=== PATIENT | male | born 1955 | race Caucasian/White ===

== ENCOUNTER 2019-12-07 13:32 | Outpatient (REF) | payer MEDICARE, MEDICAID, SELFPAY | END 2019-12-07 13:33 | disposition home or self-care (01) | LOC: HO.NEURO 13:32 | PROVIDERS: PCP Internal Medicine; Visit Provider Internal Medicine | DX: F20.9 Schizophrenia, unspecified (principal); F06.1 Catatonic disorder due to known physiological condition | CPT/HCPCS: 95816 ==

== ENCOUNTER → 2019-12-21 13:20 | Outpatient (BNVA) | payer MEDICARE, MEDICAID, SELFPAY | PROVIDERS: PCP Internal Medicine; Referring Provider Internal Medicine; Visit Provider Nurse Practitioner | DX: K59.00 Constipation, unspecified (principal); R13.12 Dysphagia, oropharyngeal phase; K21.9 Gastro-esophageal reflux disease without esophagitis; Z79.899 Other long term (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; Z83.71 Family history of colonic polyps | CPT/HCPCS: 99212 ==

== ENCOUNTER 2019-12-25 09:46 | Outpatient (REF) | payer MEDICARE, MEDICAID, SELFPAY ==
--- NOTE | 2019-12-25 09:48 | CT_ITS ---
EXAMINATION: CT HEAD WITHOUT CONTRAST CLINICAL INFORMATION: Schizophrenic Catatonia COMPARISON: CT brain 03/04/2016 TECHNIQUE: Contiguous axial imaging was performed from the skull base to vertex without intravenous administration of contrast. This CT examination was performed using dose optimization techniques as appropriate, variously including the following: *Automated exposure control *Adjustment of mA and/or kV according to patient size (this includes techniques or standardized protocols for targeted exams where dose is matched to indication/reason for exam; i.e. extremities or head) *Use of iterative reconstruction technique DLP: 638 mGy-cm FINDINGS: There is no evidence of acute intracranial hemorrhage or territorial infarction. No abnormal mass effect or midline shift is seen. Nelson to white matter differentiation is well preserved. No extra-axial fluid collections are identified. The lateral ventricles are slightly prominent but symmetrical. The osseous structures and soft tissues are normal. The mastoid air cells and visualized portions of the paranasal sinuses are well aerated. CT/CT head/brain wo con IMPRESSION: No acute intracranial process seen. No major change from previous study 03/04/2016.
== END 2019-12-25 09:47 | disposition home or self-care (01) ==
LOC: HO.CT 09:46
PROVIDERS: PCP Internal Medicine; Visit Provider Internal Medicine
DX: F20.9 Schizophrenia, unspecified (principal); F06.1 Catatonic disorder due to known physiological condition
CPT/HCPCS: 70450

== ENCOUNTER 2020-01-08 15:54 | Outpatient (REF) | payer MEDICARE, MEDICAID, SELFPAY | END 2020-01-08 15:55 | disposition home or self-care (01) | LOC: HO.LAB 15:54 | PROVIDERS: Visit Provider Internal Medicine | DX: Z20.828 Contact with and (suspected) exposure to other viral communicable diseases (principal) | CPT/HCPCS: C9803; U0003 ==

== ENCOUNTER → 2020-01-25 12:52 | Outpatient (BNVA) | payer MEDICARE, MEDICAID, SELFPAY | PROVIDERS: PCP Internal Medicine; Visit Provider Nurse Practitioner | DX: K59.00 Constipation, unspecified (principal); R13.12 Dysphagia, oropharyngeal phase; Z83.71 Family history of colonic polyps; K21.9 Gastro-esophageal reflux disease without esophagitis | CPT/HCPCS: Q3014 ==

== ENCOUNTER 2020-02-27 08:30 | Day surgery (SDC) | payer MEDICARE, MEDICAID, SELFPAY ==
[2020-02-14 20:39] VITALS: BMI 21.2
--- NOTE | 2020-02-26 12:44 | HO.ANESPROP2 ---
Documented by User: Farzana De Leon 02/26/20 12:52 HPI - Anesthesia Eval Consult details Narrative: 64yo M for Colonoscopy Tracheomalacia s/p stent 2005. Has recurrent admits for aspiration. Reviewed with Dr Ochoa. [facility] Past Medical History Medical History (Updated 02/27/20 @ 09:40 by Leyda Roque) Anemia Asthma Depression Dysphagia, cricopharyngeal Hypothyroid Oropharyngeal dysphagia Pneumonia Family History Family History Family/Other Unknown family medical history Father Hypertension Mother Unknown family medical history Brother No problems noted. Sister No problems noted. Surgical History Surgical History History of colonoscopy History of endoscopy History of esophagogastroduodenoscopy (EGD) S/P tracheoplasty Social History Social History Household Members Other:: long-term Housing Other:: long-term Alcohol intake: current Alcohol intake frequency: does not drink Smoking Status: Never smoker Use of substances other than those prescribed or required for medical reasons: No Advance Directives: Yes Advance Directives Information Provided: No Advance Directives on File: No Advance Directives Date on File: 02/14/20 Meds Allergies Allergy/AdvReac Type Severity Reaction Status Date / Time clindamycin Allergy Unknown Unknown Verified 02/19/20 06:46 Sulfa (Sulfonamide Allergy Unknown UNKNOWN Verified 02/19/20 06:46 Antibiotics) [SULFA(SULFONAMIDE ANTIBIOTICS)] sulfamethoxazole Allergy Unknown Unknown Verified 02/19/20 06:46 [From Bactrim] trimethoprim [From Bactrim] Allergy Unknown Unknown Verified 02/19/20 06:46 Home Medications Medication Instructions Recorded Confirmed Type polyethylene glycol 3350 17 17 g PO DAILY 12/20/19 02/14/20 History gram/dose oral powder clozapine 2 tab PO BEDTIME 02/14/20 02/14/20 History clozapine 2 tab PO BEDTIME 02/14/20 02/14/20 History desmopressin 0.1 mg PO DAILY 02/14/20 02/14/20 History fluoxetine 20 mg PO DAILY 02/14/20 02/27/20 History lamotrigine 1 tab PO BID 02/14/20 02/27/20 History lamotrigine 25 mg PO BID 02/14/20 02/14/20 History levothyroxine 1 tab PO DAILY 02/14/20 02/27/20 History lorazepam 1 tab PO TID PRN 02/14/20 02/27/20 History omeprazole 20 mg PO DAILY 02/14/20 02/27/20 History paliperidone [Invega] 12 mg PO DAILY 02/14/20 02/27/20 History Exam Exam Date and Time: February 26, 2020 1244 Height,Weight and Vital Signs: Height 5 ft 3 in Weight 54.431 kg Assessment and Plan Assessment Anesthesia Assessment: Chart Reviewed Documented by User: Leyda Roque 02/27/20 09:43 [facility] Past Medical History Medical History (Updated 02/27/20 @ 09:40 by Leyda Roque) Anemia Asthma Depression Dysphagia, cricopharyngeal Hypothyroid Oropharyngeal dysphagia Pneumonia Family History Family History Family/Other Unknown family medical history Father Hypertension Mother Unknown family medical history Brother No problems noted. Sister No problems noted. Family history of problems with anesthesia: No Surgical History Surgical History History of colonoscopy History of endoscopy History of esophagogastroduodenoscopy (EGD) S/P tracheoplasty History of Problems with Anesthesia: No Social History Social History Household Members Other:: long-term Housing Other:: long-term Alcohol intake: current Alcohol intake frequency: does not drink Smoking Status: Never smoker Use of substances other than those prescribed or required for medical reasons: No Advance Directives: Yes Advance Directives Information Provided: No Advance Directives on File: No Advance Directives Date on File: 02/14/20 Meds Allergies Allergy/AdvReac Type Severity Reaction Status Date / Time clindamycin Allergy Unknown Unknown Verified 02/19/20 06:46 Sulfa (Sulfonamide Allergy Unknown UNKNOWN Verified 02/19/20 06:46 Antibiotics) [SULFA(SULFONAMIDE ANTIBIOTICS)] sulfamethoxazole Allergy Unknown Unknown Verified 02/19/20 06:46 [From Bactrim] trimethoprim [From Bactrim] Allergy Unknown Unknown Verified 02/19/20 06:46 Home Medications Medication Instructions Recorded Confirmed Type polyethylene glycol 3350 17 17 g PO DAILY 12/20/19 02/14/20 History gram/dose oral powder clozapine 2 tab PO BEDTIME 02/14/20 02/14/20 History clozapine 2 tab PO BEDTIME 02/14/20 02/14/20 History desmopressin 0.1 mg PO DAILY 02/14/20 02/14/20 History fluoxetine 20 mg PO DAILY 02/14/20 02/27/20 History lamotrigine 1 tab PO BID 02/14/20 02/27/20 History lamotrigine 25 mg PO BID 02/14/20 02/14/20 History levothyroxine 1 tab PO DAILY 02/14/20 02/27/20 History lorazepam 1 tab PO TID PRN 02/14/20 02/27/20 History omeprazole 20 mg PO DAILY 02/14/20 02/27/20 History paliperidone [Invega] 12 mg PO DAILY 02/14/20 02/27/20 History Exam Height,Weight and Vital Signs: Vital Signs Temp Pulse Resp BP Pulse Ox 02/27/20 08:41 97.5 F 85 18 128/73 97 Airway Mallampati Class: II TM Dist: >3cm Neck ROM: Full Heart: RRR Lungs: CTAB Assessment and Plan Assessment Anesthesia Assessment: Anesthesia Plan Discussed and Chart Reviewed Final Anesthetic Review NPO: Yes ASA Class: II Final Preanesthetic Review: No Changes in Pt Med Stat, Meds/Allgs Chart Reviewed, Consent Obtained/Reviewed and Anes Risks/Benef Reviewed Patient Risk: Low Procedure Risk: Low Assessment/Block/Sedation in SS: Assess/Block/Sedation-SS Anesthetic Plan Anesthetic Plan: MAC: Disposition: Standard PACU
[2020-02-27 08:41] VITALS: BP 128/73; PULSE 85; RESP 18; TEMP 36.4; O2SAT 97
[2020-02-27] MEDS: Lactated Ringers 1,000 ML 100 ML IVCONT (08:57)
--- NOTE | 2020-02-27 09:25 | P.HPSUR_ITS ---
Pre-Procedural Eval Section A The patient is an INPATIENT: No The History & Physical has been completed within 30 days and I have reviewed it.: No Section B Chief Complaint: family hx of colon cancer polyps Details of Present Illness: Colon cancer screening, FH of colon polyps, chronic constipation Relevant Family History (Specify if Yes): Yes Relevant Social History: None Present Medications: see Short Stay Collaborative assessment Medical History: Significant History (Chronic schizophrenia Tracheomalacia Depression N/V w/ coffee ground emesis Tubular adenomas x 3 (2006) ) History of Previous Operations: Relevant previous surgery/procedure and date(s) (Colonoscopy w/ TUBULAR ADENOMAS X 3, all < 10 mm; diverticulosis, sm. int. hemorrhoids (Dr. Freedman) 06/2006 EGD-candidiasis, reflux esophagitis (Dr. Freedman) 12/2004 Tracheoplasty at [facility], ? Dr. Fraser ? 2004 ) Allergies: Allergies Allergy/AdvReac Type Severity Reaction Status Date / Time clindamycin Allergy Unknown Unknown Verified 02/19/20 06:46 Sulfa (Sulfonamide Allergy Unknown UNKNOWN Verified 02/19/20 06:46 Antibiotics) [SULFA(SULFONAMIDE ANTIBIOTICS)] sulfamethoxazole Allergy Unknown Unknown Verified 02/19/20 06:46 [From Bactrim] trimethoprim [From Bactrim] Allergy Unknown Unknown Verified 02/19/20 06:46 Review of Systems Sugical H&P ROS: Negative: Constitution, Cardiovascular and Respiratory and Yes, Specify: Gastrointestinal (constipation) Exam Surgical H&P Exam: Normal: Heart, Normal: Lungs, Normal: Extremities and Normal: Abdomen Plan Diagnosis/Plan: Unchanged I have reviewed the history and physical and performed a pertinent physical examination on my patient. No changes have occurred unless specified.
--- NOTE | 2020-02-27 09:25 | W.PM.OPN ---
Operative Note Operative Note Date of Service: 02/27/20 Narrative: Pre-op diagnosis: Colon cancer screening, constipation, FH of colon polyps Post-op diagnosis: other (colon polyps, suboptimal prep) Procedure: COLONOSCOPY TILL CECUM WITH SNARE POLYPECTOMY AND SUBMUCOSAL INJECTION Consent: Indications for the procedure and potential complications of bleeding, perforation, reaction to medications and missed diagnosis were discussed with the patient and informed consent was obtained. Instrument: Olympus PCF H 190 L variable stiffness pediatric colonoscope Monitoring: Vital signs and clinical assessment, intermittent blood pressure monitoring, continuous EKG monitoring, Pulse oximetry and Carbon Dioxide monitoring were done throughout the procedure. Colon withdrawl time was 25 minutes. Procedure: The patient was placed in the left lateral decubitis position and pre-procedure medications were administered. After a digital rectal examination of the ano-rectum, the video colonoscope was inserted into the rectum and advanced through the colon to the cecum. The colonoscope was slowly withdrawn in a retrograde panoramic fashion and the colon mucosa was carefully examined including a retroflexed view of the rectum. Findings and interventions are described below. Procedure Difficulty: Without difficulty Findings: Terminal Ileum: Not evaluated Cecum: Partially evaluated - A 10 mm sessile polyp raised with 3 cc of normal saline (submucosal injection) and removed with a hot snare. A 7-8 mm sessile polyp removed with a hot snare. Ascending Colon: Partially evaluated due to fair prep and poor in some areas of the colon. Transverse Colon: A 12-15 mm sessile polyp removed with a hot snare. Partially evaluated due to fair prep and poor in some areas of the colon.l Descending Colon: Partially evaluated due to fair prep and poor in some areas of the colon. Sigmoid Colon: Partially evaluated due to fair prep and poor in some areas of the colon. Rectum: Normal Ano-rectum: Normal Colon preparation: Fair and poor in some areas of the colon despite copious irrigation. Impression and Post Procedure Diagnosis: Colonoscopy Findings: Three polyps removed. Melanosis Coli throughout the colon. Fair to poor prep. Plan: Await pathology results Patient has an appointment on 03/12/20 in the [facility] with Luisa Hernandes NP . Repeat Colonoscopy in 6 months due to fair to poor prep. Above findings were reviewed with the patient and colon polyps handout was given in the discharge area Surgeon: Adriel Souza MD Anesthesia: MAC (Kiya Guido) Estimated blood loss (mL): 0 Pathology: other (A. TC polyps x 1. B. cecal polyps x 2) Condition: stable Disposition: PACU
[2020-02-27 10:32] VITALS: BP 109/71; PULSE 80; RESP 17; TEMP 36; O2SAT 95
[2020-02-27 10:48] VITALS: BP 109/76; PULSE 80; RESP 16; TEMP 36.1; O2SAT 97
[2020-02-27 11:04] VITALS: BP 136/81; PULSE 77; RESP 16; TEMP 36.1; O2SAT 97
[2020-02-27 11:22] VITALS: BP 134/69; PULSE 82; RESP 16; TEMP 36.3; O2SAT 99
--- NOTE | 2020-02-27 11:50 | HO.POSTANES ---
Post Anesthesia Evaluation Post Anesthesia Evaluation Vital Signs: Vital Signs Temp Pulse Resp BP Pulse Ox 02/27/20 11:22 97.3 F 82 16 134/69 99 02/27/20 11:04 97 F 77 16 136/81 97 02/27/20 10:48 97 F 80 16 109/76 97 02/27/20 10:32 96.8 F 80 17 109/71 95 02/27/20 08:41 97.5 F 85 18 128/73 97 Anesthesia: Monitored Mental Status: Awake Pain Control: Satisfactory Nausea/Vomiting: None Hydration: Adequate Anesthesia-Related Issues: No Anes. Related Issues
== END 2020-02-27 12:23 | disposition home or self-care (01) ==
PROVIDERS: PCP Internal Medicine; Visit Provider Internal Medicine Gastroenterology
PROC: 0DJD8ZZ Inspection of Lower Intestinal Tract, Via Natural or Artificial Opening Endoscopic (ICD-10-PCS; CPT 45378; principal; 2020-02-27 09:00)
DX: Z12.11 Encounter for screening for malignant neoplasm of colon (principal); Z83.71 Family history of colonic polyps; Z86.010 Personal history of colon polyps; D12.0 Benign neoplasm of cecum; D12.3 Benign neoplasm of transverse colon; K63.89 Other specified diseases of intestine; K59.09 Other constipation; J44.9 Chronic obstructive pulmonary disease, unspecified; R73.02 Impaired glucose tolerance (oral); J39.8 Other specified diseases of upper respiratory tract; F20.9 Schizophrenia, unspecified; F32.9 Major depressive disorder, single episode, unspecified; Z79.899 Other long term (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; Z88.2 Allergy status to sulfonamides; Z88.1 Allergy status to other antibiotic agents
CPT/HCPCS: 45385; 45381; 88305

== ENCOUNTER → 2020-05-15 14:41 | Outpatient (BNVA) | payer MEDICARE, MEDICAID, SELFPAY | PROVIDERS: PCP Internal Medicine; Visit Provider Nurse Practitioner | DX: R13.12 Dysphagia, oropharyngeal phase (principal); K21.9 Gastro-esophageal reflux disease without esophagitis; K59.00 Constipation, unspecified; D12.6 Benign neoplasm of colon, unspecified; Z83.71 Family history of colonic polyps | CPT/HCPCS: Q3014 ==

== ENCOUNTER → 2020-05-31 10:57 | Outpatient (BNVA) | payer MEDICARE, MEDICAID, SELFPAY | PROVIDERS: PCP Internal Medicine; Visit Provider Nurse Practitioner | DX: Z13.89 Encounter for screening for other disorder (principal) | CPT/HCPCS: Q3014 ==

== ENCOUNTER 2020-06-06 08:47 | Outpatient (REF) | payer MEDICARE, MEDICAID, SELFPAY ==
[2020-06-06 09:43] LABS: MANUAL DIFF FLAG NO
[2020-06-06 09:51] LABS: Basophils Absolute Auto 0.1 X10*3/uL (0.0-0.2); Basophils Percent Auto 0.6 % (0-2); Eosinophils Absolute Auto 0.1 X10*3/uL (0.0-0.4); Eosinophils Percent Auto 1.7 % (0-4); Hematocrit 37.8 % (42-52); Hemoglobin 12.2 g/dl (14.0-18.0); Imm Gran Abs Auto 0.08 X10*3/uL (0.00-0.03); Immature Retic Fraction 11.3 % (2.3-13.4); Lymphocytes Percent Auto 11.8 % (20-40); Mean Corpuscular HGB Conc 32.3 g/dl (31.0-36.0); Mean Corpuscular Hemoglobin 30.6 pg (27.0-33.0); Mean Corpuscular Volume 94.7 fL (80-98); Mean Platelet Volume 11.1 fL (9.4-12.4); Monocytes Absolute Auto 0.5 X10*3/uL (0.1-1.2); Monocytes Percent Auto 5.8 % (2-11); Neutrophils Absolute Auto 6.4 X10*3/uL (2.0-8.3); Neutrophils Percent Auto 79.1 % (45-73); Platelet Count 290 X10*3/uL (160-400); Red Blood Count 3.99 X10*6/uL (4.60-5.80); Red Cell Distribution Width 13.7 % (11.0-16.0); Retic HGB Equivalent 33.2 pg (30.0-35.0); Reticulocyte Percent 1.5 % (0.5-1.8); Reticulocytes Absolute 0.058 X10*6/uL (0.026-0.095); White Blood Count 8.1 X10*3/uL (4.8-10.8)
[2020-06-06 10:14] LABS: Alanine Aminotransferase 9 U/L (0-40); Albumin Level 4.1 g/dL (3.5-5.0); Alkaline Phosphatase 68 U/L (39-117); Anion Gap 13 (12-20); Aspartate Amino Transferase 13 U/L (5-37); Bilirubin Total 0.4 mg/dL (0.0-1.0); Blood Urea Nitrogen 16 mg/dL (9-16); Calcium 9.9 mg/dL (8.4-10.2); Carbon Dioxide 29 mmol/L (22-29); Chloride 104 mmol/L (96-108); Cholesterol 189 mg/dL; Estimated Glomerular Filt Rate > 60; Glucose Random 90 mg/dL (60-115); HDL Cholesterol 67 mg/dL; Iron 69 mcg/dL (45-160); LDL Cholesterol Calculated 105 mg/dl; Percent Iron Saturation 26 % (15-50); Potassium 4.5 mmol/L (3.3-5.1); Sodium 141 mmol/L (135-145); Total Iron Binding Capacity 264 mcg/dL (228-428); Total Protein 6.7 g/dL (6.5-8.0); Triglycerides 89 mg/dL; Unsaturated Iron Binding 195 ug/dL
[2020-06-06 10:26] LABS: Ferritin 198 ng/mL (20-250); Free T4 (Free Thyroxine) 0.99 ng/dL (0.71-1.85); Thyroid Stimulating Hormone 1.97 uIU/mL (0.32-4.0)
[2020-06-06 10:48] LABS: Folate 14.8 ng/mL (> or = 4.0); Vitamin B12 899 pg/mL (200-900)
== END 2020-06-06 08:48 | disposition home or self-care (01) ==
LOC: HO.LAB 08:47
PROVIDERS: PCP Internal Medicine; Visit Provider Internal Medicine
DX: D64.9 Anemia, unspecified (principal); K21.9 Gastro-esophageal reflux disease without esophagitis; E03.9 Hypothyroidism, unspecified; E78.00 Pure hypercholesterolemia, unspecified
CPT/HCPCS: 36415; 80053; 80061; 82607; 82728; 82746; 83540; 84439; 84443; 85025; 85045

== ENCOUNTER → 2020-07-25 15:18 | Outpatient (BNVA) | payer MEDICARE, MEDICAID, SELFPAY | PROVIDERS: PCP Internal Medicine; Visit Provider Nurse Practitioner | DX: D12.6 Benign neoplasm of colon, unspecified (principal); R13.12 Dysphagia, oropharyngeal phase; K59.00 Constipation, unspecified; K21.9 Gastro-esophageal reflux disease without esophagitis; F20.2 Catatonic schizophrenia; Z83.71 Family history of colonic polyps | CPT/HCPCS: Q3014 ==

== ENCOUNTER 2020-09-11 10:51 | Outpatient (REF) | payer MEDICARE, MEDICAID, SELFPAY ==
[2020-09-11 11:28] LABS: MANUAL DIFF FLAG NO
[2020-09-11 11:37] LABS: Basophils Percent Auto 0.4 % (0-2); Eosinophils Absolute Auto 0.1 X10*3/uL (0.0-0.4); Eosinophils Percent Auto 0.7 % (0-4); Hematocrit 42.6 % (42-52); Hemoglobin 13.7 g/dl (14.0-18.0); Imm Gran Abs Auto 0.03 X10*3/uL (0.00-0.03); Imm Gran Pct Auto 0.3 % (0.0-0.4); Immature Retic Fraction 10.2 % (2.3-13.4); Lymphocytes Percent Auto 10.8 % (20-40); Mean Corpuscular HGB Conc 32.2 g/dl (31.0-36.0); Mean Corpuscular Hemoglobin 30.2 pg (27.0-33.0); Mean Corpuscular Volume 93.8 fL (80-98); Mean Platelet Volume 10.9 fL (9.4-12.4); Monocytes Absolute Auto 0.5 X10*3/uL (0.1-1.2); Monocytes Percent Auto 4.9 % (2-11); Neutrophils Absolute Auto 7.7 X10*3/uL (2.0-8.3); Neutrophils Percent Auto 82.9 % (45-73); Platelet Count 243 X10*3/uL (160-400); Red Blood Count 4.54 X10*6/uL (4.60-5.80); Red Cell Distribution Width 13.1 % (11.0-16.0); Retic HGB Equivalent 35.4 pg (30.0-35.0); Reticulocyte Percent 1.2 % (0.5-1.8); Reticulocytes Absolute 0.055 X10*6/uL (0.026-0.095); White Blood Count 9.3 X10*3/uL (4.8-10.8)
[2020-09-11 12:11] LABS: Alanine Aminotransferase 6 U/L (0-40); Albumin Level 4.4 g/dL (3.5-5.0); Alkaline Phosphatase 86 U/L (39-117); Anion Gap 15 (12-20); Aspartate Amino Transferase 15 U/L (5-37); Bilirubin Total 0.5 mg/dL (0.0-1.0); Blood Urea Nitrogen 21 mg/dL (9-16); Calcium 10.3 mg/dL (8.4-10.2); Carbon Dioxide 25 mmol/L (22-29); Chloride 105 mmol/L (96-108); Estimated Glomerular Filt Rate > 60; Glucose Random 97 mg/dL (60-115); Iron 60 mcg/dL (45-160); Percent Iron Saturation 20 % (15-50); Potassium 4.7 mmol/L (3.3-5.1); Sodium 140 mmol/L (135-145); Total Iron Binding Capacity 301 mcg/dL (228-428); Total Protein 7.4 g/dL (6.5-8.0); Unsaturated Iron Binding 241 ug/dL
[2020-09-11 12:37] LABS: Ferritin 210 ng/mL (20-250); Thyroid Stimulating Hormone 2.98 uIU/mL (0.32-4.0)
[2020-09-11 14:58] LABS: Folate 14.4 ng/mL (> or = 4.0); Vitamin B12 1027 pg/mL (200-900)
[2020-09-11 17:55] LABS: Glucose Urine UA NEG (NEG); Leukocyte Esterase Urine NEG (NEG); Nitrite Urine NEG (NEG); Specific Gravity - Urine >= 1.030 (1.005-1.025); Urine Blood NEG (NEG); Urine Ketones 5 MG/DL (NEG); Urine Protein NEG (NEG-TRACE)
[2020-09-11 18:05] LABS: Appearance Urine CLEAR; Color Urine DARK YELLOW
[2020-09-11 18:11] LABS: Calcium Oxalate Crystals Urine TRACE /LPF; Mucus Urine 1+ /LPF
== END 2020-09-11 10:52 | disposition home or self-care (01) ==
LOC: HO.LAB 10:51
PROVIDERS: PCP Internal Medicine; Visit Provider Internal Medicine
DX: F20.2 Catatonic schizophrenia (principal); D64.9 Anemia, unspecified; E03.9 Hypothyroidism, unspecified
CPT/HCPCS: 36415; 80053; 81001; 82607; 82728; 82746; 83540; 84439; 84443; 85025; 85045

== ENCOUNTER 2020-11-27 15:07 | Outpatient (REF) | payer MEDICARE, MEDICAID, SELFPAY ==
[2020-11-27 15:46] LABS: Alanine Aminotransferase 12 U/L (0-40); Albumin Level 4.4 g/dL (3.5-5.0); Alkaline Phosphatase 79 U/L (39-117); Anion Gap 12 (12-20); Aspartate Amino Transferase 16 U/L (5-37); Bilirubin Total 0.4 mg/dL (0.0-1.0); Blood Urea Nitrogen 26 mg/dL (9-16); Calcium 10.3 mg/dL (8.4-10.2); Carbon Dioxide 27 mmol/L (22-29); Chloride 103 mmol/L (96-108); Estimated Glomerular Filt Rate 55; Glucose Fasting 111 mg/dL (60-99); Potassium 4.4 mmol/L (3.3-5.1); Sodium 138 mmol/L (135-145)
[2020-11-27 16:05] LABS: Prostate Specific Antigen 3.52 ng/mL (<0.05-4.0)
== END 2020-11-27 15:08 | disposition home or self-care (01) ==
LOC: HO.LAB 15:07
PROVIDERS: Visit Provider Nurse Practitioner Family
DX: Z12.5 Encounter for screening for malignant neoplasm of prostate (principal); Z13.1 Encounter for screening for diabetes mellitus
CPT/HCPCS: 36415; 80053; 84153

== ENCOUNTER 2020-11-28 08:11 | Day surgery (SDC) | payer MEDICARE, MEDICAID, SELFPAY ==
[2020-10-18 14:29] VITALS: BMI 19.3
--- NOTE | 2020-10-23 09:32 | HO.ANESPROP2 ---
HPI - Anesthesia Eval Consult details Narrative: 08/29/20: Procedure cx'd d/t pt cognition and unable to reach HCP 65yo M for Colonoscopy s/p colo with MAC 02/2020 (3x TA's and insuff prep) Tracheomalacia s/p stent 2005. Has recurrent admits for aspiration. [facility] Active Problems Active Problems: All Active Problems (Updated 08/22/20 @ 11:55 by Marci Boles RN) Family history of colonic polyps (Acute) Constipation (Acute) GERD (gastroesophageal reflux disease) (Acute) Urinary incontinence (Acute) Tubular adenoma of colon (Acute) Anemia (Acute) Hypothyroid (Acute) Schizophrenia (Acute) COPD (chronic obstructive pulmonary disease) (Acute) Oropharyngeal dysphagia (Acute) Past Medical History Medical History (Updated 08/22/20 @ 11:55 by Marci Boles RN) Anemia Anxiety Asthma COPD (chronic obstructive pulmonary disease) Depression GERD (gastroesophageal reflux disease) Hypothyroid Impaired glucose tolerance Mentally challenged MVP (mitral valve prolapse) Oropharyngeal dysphagia Pneumonia Schizophrenia Tracheomalacia Tubular adenoma of colon Family History Family History Family/Other Unknown family medical history Father Hypertension Mother Unknown family medical history Brother No problems noted. Sister No problems noted. Family history of problems with anesthesia: No Surgical History Surgical History (Updated 08/22/20 @ 11:53 by Marci Boles RN) History of esophagogastroduodenoscopy (EGD) Hx of colonoscopy S/P tracheoplasty History of Problems with Anesthesia: No Social History Social History Household Members Other:: Resides in Longterm Housing: Other Housing Other:: Longterm Are you a primary pulmonary care nurse to a significant other at home: No Do you presently have visiting nurse or other home services: Yes (Resides in [facility]) Alcohol intake: current Alcohol intake frequency: does not drink Patient Tobacco Use Status: Never used Tobacco e-Cigarette/Vaping Use: Never Used Second Hand Smoke Exposure: No Advance Directives Date on File: 02/14/20 service: No Current occupational status: disabled Meds Allergies Allergy/AdvReac Type Severity Reaction Status Date / Time clindamycin Allergy Unknown Unknown Verified 09/06/20 14:54 Sulfa (Sulfonamide Allergy Unknown UNKNOWN Verified 09/06/20 14:54 Antibiotics) [SULFA(SULFONAMIDE ANTIBIOTICS)] sulfamethoxazole Allergy Unknown Unknown Verified 09/06/20 14:54 [From Bactrim] trimethoprim [From Bactrim] Allergy Unknown Unknown Verified 09/06/20 14:54 Home Medications Medication Instructions Recorded Confirmed Last Taken Type clozapine 25 mg tablet 2 tab PO BEDTIME 02/14/20 09/06/20 Unknown History fluoxetine 20 mg capsule 20 mg PO DAILY 02/14/20 09/06/20 02/27/20 History lorazepam 0.5 mg tablet 1 tab PO TID PRN 02/14/20 09/06/20 02/27/20 History paliperidone 6 mg tablet,extended 12 mg PO DAILY 02/14/20 09/06/20 02/27/20 History release 24 hr (Invega) Exam Exam Date and Time: October 23, 2020 0932 Height,Weight and Vital Signs: Height 5 ft 6 in Weight 54.431 kg Pertinent Lab Results Pertinent Lab Results: Laboratory Tests 09/11/20 09/11/20 11:02 11:02 WBC 9.3 Hgb 13.7 L Hct 42.6 Plt Count 243 Sodium 140 Potassium 4.7 Chloride 105 Carbon Dioxide 25 BUN 21 H Creatinine 1.02 Assessment and Plan Assessment Anesthesia Assessment: Chart Reviewed Final Anesthetic Review Family History of Problems with Anesthesia: No History of Problems with Anesthesia: No
--- NOTE | 2020-11-27 10:01 | P.CONAN_ITS ---
Documented by User: Farzana De Leon NP 11/27/20 10:09 HPI - Anesthesia Eval Consult details Narrative: 08/29/20: Procedure cx'd d/t pt cognition and unable to reach HCP. Also, questionable prep 65yo M for Colonoscopy s/p colo with MAC 02/2020 (3x TA's and insuff prep) Tracheomalacia s/p stent 2005. Has recurrent admits for aspiration. [facility] Active Problems Active Problems: All Active Problems (Updated 08/22/20 @ 11:55 by Marci Boles RN) Family history of colonic polyps (Acute) Constipation (Acute) GERD (gastroesophageal reflux disease) (Acute) Urinary incontinence (Acute) Tubular adenoma of colon (Acute) Anemia (Acute) Hypothyroid (Acute) Schizophrenia (Acute) COPD (chronic obstructive pulmonary disease) (Acute) Oropharyngeal dysphagia (Acute) Past Medical History Medical History Anemia Anxiety Asthma COPD (chronic obstructive pulmonary disease) Depression GERD (gastroesophageal reflux disease) Hypothyroid Impaired glucose tolerance Mentally challenged MVP (mitral valve prolapse) Oropharyngeal dysphagia Pneumonia Schizophrenia Tracheomalacia Tubular adenoma of colon Family History Family History Family/Other Unknown family medical history Father Hypertension Mother Unknown family medical history Brother No problems noted. Sister No problems noted. Family history of problems with anesthesia: No Surgical History Surgical History History of esophagogastroduodenoscopy (EGD) Hx of colonoscopy S/P tracheoplasty History of Problems with Anesthesia: No Social History Social History Household Members Other:: Resides in Nursing Home Housing: Other Housing Other:: Nursing Home Are you a primary primary care nurse practitioner to a significant other at home: No Do you presently have visiting nurse or other home services: Yes (Resides in senior care) Alcohol intake: current Alcohol intake frequency: does not drink Patient Tobacco Use Status: Never used Tobacco e-Cigarette/Vaping Use: Never Used Second Hand Smoke Exposure: No Advance Directives Date on File: 02/14/20 service: No Current occupational status: disabled Meds Allergies Allergy/AdvReac Type Severity Reaction Status Date / Time clindamycin Allergy Unknown Unknown Verified 11/27/20 14:36 Sulfa (Sulfonamide Allergy Unknown UNKNOWN Verified 11/27/20 14:36 Antibiotics) [SULFA(SULFONAMIDE ANTIBIOTICS)] sulfamethoxazole Allergy Unknown Unknown Verified 11/27/20 14:36 [From Bactrim] trimethoprim [From Bactrim] Allergy Unknown Unknown Verified 11/27/20 14:36 Home Medications Medication Instructions Recorded Confirmed Last Taken Type clozapine 25 mg tablet 2 tab PO BEDTIME 02/14/20 11/27/20 Unknown History lorazepam 0.5 mg tablet 1 tab PO TID PRN 02/14/20 11/27/20 02/27/20 History paliperidone 6 mg tablet,extended 12 mg PO DAILY 02/14/20 11/27/20 02/27/20 History release 24 hr (Invega) clozapine 100 mg tablet 200 mg PO BEDTIME 11/27/20 11/27/20 Unknown History fluoxetine 20 mg capsule 40 mg PO DAILY cap 11/27/20 11/27/20 Unknown History Exam Exam Date and Time: November 27, 2020 1001 Height,Weight and Vital Signs: Height 5 ft 6 in Weight 54.431 kg Narrative Narrative: Laboratory Tests 09/11/20 09/11/20 11:02 11:02 WBC 9.3 Hgb 13.7 L Hct 42.6 Plt Count 243 Sodium 140 Potassium 4.7 Chloride 105 Carbon Dioxide 25 BUN 21 H Creatinine 1.02 Assessment and Plan Assessment Anesthesia Assessment: Chart Reviewed Final Anesthetic Review Family History of Problems with Anesthesia: No History of Problems with Anesthesia: No Documented by User: Shauna Boyd MD 11/28/20 08:08 [facility] Past Medical History Medical History Anemia Anxiety Asthma COPD (chronic obstructive pulmonary disease) Depression GERD (gastroesophageal reflux disease) Hypothyroid Impaired glucose tolerance Mentally challenged MVP (mitral valve prolapse) Oropharyngeal dysphagia Pneumonia Schizophrenia Tracheomalacia Tubular adenoma of colon Family History Family History Family/Other Unknown family medical history Father Hypertension Mother Unknown family medical history Brother No problems noted. Sister No problems noted. Surgical History Surgical History History of esophagogastroduodenoscopy (EGD) Hx of colonoscopy S/P tracheoplasty Social History Social History Household Members Other:: Resides in Nursing Home Housing: Other Housing Other:: Nursing Home Are you a primary primary care nurse practitioner to a significant other at home: No Do you presently have visiting nurse or other home services: Yes (Resides in senior care) Alcohol intake: current Alcohol intake frequency: does not drink Patient Tobacco Use Status: Never used Tobacco e-Cigarette/Vaping Use: Never Used Second Hand Smoke Exposure: No Advance Directives Date on File: 02/14/20 service: No Current occupational status: disabled Meds Allergies Allergy/AdvReac Type Severity Reaction Status Date / Time clindamycin Allergy Unknown Unknown Verified 11/27/20 14:36 Sulfa (Sulfonamide Allergy Unknown UNKNOWN Verified 11/27/20 14:36 Antibiotics) [SULFA(SULFONAMIDE ANTIBIOTICS)] sulfamethoxazole Allergy Unknown Unknown Verified 11/27/20 14:36 [From Bactrim] trimethoprim [From Bactrim] Allergy Unknown Unknown Verified 11/27/20 14:36 Home Medications Medication Instructions Recorded Confirmed Last Taken Type clozapine 25 mg tablet 2 tab PO BEDTIME 02/14/20 11/27/20 Unknown History lorazepam 0.5 mg tablet 1 tab PO TID PRN 02/14/20 11/27/20 02/27/20 History paliperidone 6 mg tablet,extended 12 mg PO DAILY 02/14/20 11/27/20 02/27/20 History release 24 hr (Invega) clozapine 100 mg tablet 200 mg PO BEDTIME 11/27/20 11/27/20 Unknown History fluoxetine 20 mg capsule 40 mg PO DAILY cap 11/27/20 11/27/20 Unknown History Exam Airway Mallampati Class: II TM Dist: >3cm Neck ROM: Full
[2020-11-28 08:37] VITALS: BP 123/76; PULSE 93; RESP 16; TEMP 36.2; O2SAT 100
--- NOTE | 2020-11-28 08:56 | MHC.SHP ---
Pre-Procedural Eval Section A Date of Service: 11/28/20 Section B Chief Complaint: Screening Relevant Family History (Specify if Yes): No Relevant Social History: None Present Medications: see Short Stay Collaborative assessment Medical History: Significant History (Anemia Anxiety Asthma COPD (chronic obstructive pulmonary disease) Depression GERD (gastroesophageal reflux disease) Hypothyroid Impaired glucose tolerance Mentally challenged MVP (mitral valve prolapse) Oropharyngeal dysphagia Pneumonia Schizophrenia Tracheomalacia Tubular adenoma of colon) History of Previous Operations: Relevant previous surgery/procedure and date(s) (History of esophagogastroduodenoscopy (EGD) Hx of colonoscopy S/P tracheoplasty) Allergies: Allergies Allergy/AdvReac Type Severity Reaction Status Date / Time clindamycin Allergy Unknown Unknown Verified 11/27/20 14:36 Sulfa (Sulfonamide Allergy Unknown UNKNOWN Verified 11/27/20 14:36 Antibiotics) [SULFA(SULFONAMIDE ANTIBIOTICS)] sulfamethoxazole Allergy Unknown Unknown Verified 11/27/20 14:36 [From Bactrim] trimethoprim [From Bactrim] Allergy Unknown Unknown Verified 11/27/20 14:36 Review of Systems Sugical H&P ROS: Negative: Constitution, Cardiovascular, Respiratory, Neurological, Psychiatric, Hem-Onc, Allergic/Immunologic, Gastrointestinal, Genitourinary, Musculoskeletal, Integumentary, Endocrine and Eyes/Ears/Nose/Throat Exam Surgical H&P Exam: Normal: HEENT, Normal: Heart, Normal: Lungs, Normal: Extremities, Normal: Abdomen, Normal: Skin and Normal: Neurological Plan Diagnosis/Plan: Unchanged I have reviewed the history and physical and performed a pertinent physical examination on my patient. No changes have occurred unless specified.
[2020-11-28] MEDS: Lactated Ringers 1,000 ML 100 ML IVCONT (08:57)
[2020-11-28] MEDS: Sodium Phosphate,Mono-Dibasic 133 ML ENEMA PR (08:59)
--- NOTE | 2020-11-28 10:36 | P.OP_ITS ---
Operative Note Operative Note Date of Service: 11/28/20 Narrative: Operative Information Procedure Description: Colonoscopy COLONOSCOPY Instrument: Olympus variable stiffness pediatric scope 190L Colonoscopy Monitoring: Vital signs and clinical assessment, continuous EKG monitoring, Pulse oximetry, Carbon Dioxide monitoring and blood pressure monitoring were done throughout the procedure. Colon withdrawal time was 28 minutes. Procedure: The patient was placed in the left lateral decubitis position and pre-procedure medications were administered. After a digital rectal examination of the ano-rectum, the video colonoscope was inserted into the rectum and advanced through the colon to the cecum/TI. The colonoscope was slowly withdrawn in a retrograde panoramic fashion and the colon mucosa was carefully examined including a retroflexed view of the rectum. Findings and interventions are described below. Procedure Difficulty: moderate due to lack of muscle tone Findings: Terminal Ileum-normal Cecum:normal Ascending Colon: 5-8 mm sessile polyp removed with cold snare. 12-15 mm polyp straddling a fold, only seen on retroflexion, injected with few cc of orise and then removed with cold snare and forceps combo. The edges were ablated with APC and then 3 clips used to close the defect Transverse Colon -normal Descending Colon:normal Sigmoid Colon: normal Rectum: Retroflexion with small internal hemorrhoids, grade I Anorectum - normal Colon preparation: Goodell Bowel Preparation Scale Right colon; 2 Transverse colon: 2 Left colon; 2 (0 = Unprepared colon segment with mucosa not seen due to solid stool that cannot be cleared. 1 = Portion of mucosa of the colon segment seen, but other areas of the colon segment not well seen due to staining, residual stool and/or opaque liquid. 2 = Minor amount of residual staining, small fragments of stool and/or opaque liquid, but mucosa of colon segment seen well. 3 = Entire mucosa of colon segment seen well with no residual staining, small fragments of stool or opaque liquid) Impression and Post Procedure Diagnosis: polyps internal hemorrhoids Plan: High fiber diet leaflet Avoid straining at stool, epsom salts and sitz bath, anusol supps or cream Repeat Colonoscopy in 5 years due to polyps or earlier if clinically indicated Above findings were reviewed with the patient and relevant handouts were provided if indicated.
--- NOTE | 2020-11-28 10:36 | P.BOP_ITS ---
Brief Operative Note Date of Service: 11/28/20 Pre-op diagnosis: colon screening Post-op diagnosis: same Procedure: see op note Surgeon: Gracia Ta MD Anesthesia: MAC Was an Activated Sludge Attendant used for this Procedure?: No Estimated blood loss (mL): 0 Condition: stable Disposition: PACU
[2020-11-28 11:27] VITALS: BP 117/56; PULSE 76; RESP 16; TEMP 36.9; O2SAT 99
[2020-11-28 11:42] VITALS: BP 128/77; PULSE 77; RESP 16; TEMP 36.9; O2SAT 99
== END 2020-11-28 11:46 | disposition home or self-care (01) ==
PROVIDERS: PCP Internal Medicine; Visit Provider Internal Medicine Gastroenterology
PROC: 0DJD8ZZ Inspection of Lower Intestinal Tract, Via Natural or Artificial Opening Endoscopic (ICD-10-PCS; CPT 45378; principal; 2020-11-28 09:20)
DX: Z12.11 Encounter for screening for malignant neoplasm of colon (principal); Z86.010 Personal history of colon polyps; Z83.71 Family history of colonic polyps; D12.2 Benign neoplasm of ascending colon; K64.0 First degree hemorrhoids; K59.00 Constipation, unspecified; K21.9 Gastro-esophageal reflux disease without esophagitis; D64.9 Anemia, unspecified; J44.9 Chronic obstructive pulmonary disease, unspecified; R73.01 Impaired fasting glucose; F32.9 Major depressive disorder, single episode, unspecified; F20.2 Catatonic schizophrenia; R13.12 Dysphagia, oropharyngeal phase; J95.5 Postprocedural subglottic stenosis; Z79.899 Other long term (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; Z88.1 Allergy status to other antibiotic agents; Z88.2 Allergy status to sulfonamides; Z87.01 Personal history of pneumonia (recurrent)
CPT/HCPCS: 45385; 45380; 45381; 88305

== ENCOUNTER → 2020-12-12 09:07 | Outpatient (BNVA) | payer MEDICARE, MEDICAID, SELFPAY | PROVIDERS: PCP Internal Medicine; Visit Provider Nurse Practitioner | DX: K59.00 Constipation, unspecified (principal); K21.9 Gastro-esophageal reflux disease without esophagitis; D12.6 Benign neoplasm of colon, unspecified; Z83.71 Family history of colonic polyps | CPT/HCPCS: Q3014 ==

== ENCOUNTER → 2021-07-03 10:49 | Outpatient (BNVA) | payer MEDICARE, MEDICAID, SELFPAY | PROVIDERS: PCP Internal Medicine; Referring Provider Internal Medicine; Visit Provider Nurse Practitioner | DX: K21.9 Gastro-esophageal reflux disease without esophagitis (principal); K59.00 Constipation, unspecified; D12.6 Benign neoplasm of colon, unspecified | CPT/HCPCS: 99212 ==

== ENCOUNTER → 2021-08-14 08:51 | Outpatient (BNVA) | payer MEDICARE, MEDICAID, SELFPAY | PROVIDERS: PCP Internal Medicine; Visit Provider Nurse Practitioner | DX: K59.00 Constipation, unspecified (principal); K21.9 Gastro-esophageal reflux disease without esophagitis; F20.2 Catatonic schizophrenia; Z86.010 Personal history of colon polyps; Z79.899 Other long term (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 | CPT/HCPCS: 99212 ==

== ENCOUNTER 2021-08-17 08:32 | Emergency (ER) | payer MEDICARE, MEDICAID, SELFPAY ==
--- NOTE | ~2021-08-17 | XR_ITS ---
EXAMINATION: XR CHEST CLINICAL INFORMATION: Fall COMPARISON: X-ray 06/16/2018 TECHNIQUE: 2 views of the chest were obtained. FINDINGS: Normal and mediastinal silhouette. Stable mild central vascular prominence. There is hazy opacification the right infrahilar region and medial aspect right lower lung. This is nonspecific, could reflect infectious inflammatory process. No dense consolidation left lung. No effusion, edema. No pneumothorax is seen. No acute displaced rib fracture is identified. Thoracic spine degeneration. XR/XR chest 2V IMPRESSION: Hazy opacity in the right infrahilar region and medial aspect right lower lung, nonspecific, could reflect infectious or inflammatory process. Recommendation is for a follow-up chest series to be obtained following treatment and/or resolution of symptoms to assure resolution of this appearance. No acute displaced rib fractures identified.
--- NOTE | ~2021-08-17 | CT_ITS ---
EXAMINATION: CT head/brain wo con, CT cervical spine wo con INDICATION INFORMATION: Altered mental status,, fall COMPARISON: CT head 12/25/2019 TECHNIQUE: Separate noncontrast CT examinations of the head and cervical spine were performed. Coronal and sagittal reformats were obtained at the acquisition workstation. DLP: 928 mGy-cm FINDINGS: HEAD: There is no evidence of acute intracranial hemorrhage or territorial infarction. Nelson to white matter differentiation is well preserved. No abnormal mass effect or midline shift is seen. No extra-axial fluid collections are identified. Commensurate prominence of the ventricles and sulci is compatible with generalized parenchymal volume loss. The cerebellar tonsils are well positioned. No acute calvarial fracture. Stable left basal ganglia mineralization. The mastoid air cells and visualized portions of the paranasal sinuses are well aerated. CERVICAL SPINE: Motion artifact degrading images, limiting evaluation. Particular, this limits evaluation of the C1 vertebrae, the skull base, C2 dens.. The craniocervical and atlantoaxial articulation is grossly maintained. Otherwise, no acute fracture is seen of the cervical spine. Body heights are maintained. Posterior alignment is maintained. Mild C2-C3, C3-C4 disc degeneration. .No prevertebral soft tissue swelling. There is no cervical lymphadenopathy. No suspicious findings. The visualized lung apices are clear. CT/CT head/brain wo con IMPRESSION: No CT evidence of acute intracranial pathology. Motion artifact limits evaluation of the craniocervical junction, the C1 and C2 vertebral body, including the dens. Repeat CT scan for further evaluation as clinically warranted. In the remainder of the cervical spine, no acute fracture or subluxation is seen..
--- NOTE | ~2021-08-17 | XR_ITS ---
EXAMINATION: XR SHOULDER, LEFT CLINICAL INFORMATION: Fall, pain COMPARISON: None TECHNIQUE: Three views of the left shoulder. FINDINGS: No visible fracture or dislocation. The humeral head aligns to glenoid. Limited evaluation of the glenohumeral joint space. Acromioclavicular joint is intact. No abnormal soft tissue calcification. Osteopenia. No suspicious findings in the visualized left lung. XR/XR shoulder LT min 2V IMPRESSION: No evidence of acute fracture or dislocation.
--- NOTE | ~2021-08-17 | CT_ITS ---
EXAMINATION: CT ABDOMEN AND PELVIS WITHOUT CONTRAST CLINICAL INFORMATION: Abnormal x-ray. Multiple distended loops of bowel. COMPARISON: Lumbar spine x-ray from earlier the same day and CT of the abdomen and pelvis April 2017 TECHNIQUE: Multidetector volumetric imaging was performed from the superior aspect of the liver through the pubic symphysis. Sagittal and coronal reformatted images were obtained on the technologist's workstation. This CT examination was performed using dose optimization techniques as appropriate, variously including the following: *Automated exposure control *Adjustment of mA and/or kV according to patient size (this includes techniques or standardized protocols for targeted exams where dose is matched to indication/reason for exam; i.e. extremities or head) *Use of iterative reconstruction technique DLP: 253 mGy-cm FINDINGS: LUNG BASES: There is chronic bronchiectasis and atelectasis in the left lower lobe. There is evidence of mild airways disease with increased peribronchial attenuation in the right lower lobe. LIVER, GALLBLADDER, AND BILIARY TREE: The liver is normal in size, shape, and attenuation. No focal hepatic lesion or biliary ductal dilatation is present. The gallbladder is unremarkable with no evidence of radiopaque gallstones, gallbladder wall thickening, or obvious pericholecystic inflammatory changes. PANCREAS: Unremarkable. SPLEEN: Unremarkable. ADRENAL GLANDS: Unremarkable. KIDNEYS AND URETERS: The kidneys are normal in size, shape, and attenuation. No hydronephrosis, hydroureter, or calculi seen. No perinephric stranding. BLADDER: The prostate gland is enlarged and protrudes into the base of the bladder. GASTROINTESTINAL TRACT: There is a large amount of stool in the colon. The colon appears dilated down to the rectum. No mass or transition zone is seen to suggest mechanical obstruction. There are fluid-filled loops of small and proximal large bowel. The small bowel does not appear dilated. There are 2 radiopaque densities questionable for biopsy clips in the right colon. The appendix is normal. The stomach is distended and fluid-filled. ABDOMINAL WALL: No significant hernia is appreciated. LYMPH NODES: Normal. VASCULAR: Unremarkable. PELVIC VISCERA: Unremarkable. OSSEOUS STRUCTURES: There is AVN of the femoral heads, left greater than right. CT/CT abdomen pelvis wo con IMPRESSION: Constipation. There are distended fluid-filled loops of small and large bowel and stomach suggestive of mild secondary obstruction. Enlarged prostate gland that protrudes into the base of the bladder. 2 radiopaque densities in the right: Question representing biopsy clips. Clinical correlation recommended. Bilateral femoral head AVN. Fleischner guidelines were followed.
--- NOTE | ~2021-08-17 | XR_ITS ---
EXAMINATION: XR LUMBOSACRAL SPINE CLINICAL INFORMATION: Fall, back pain. COMPARISON: None TECHNIQUE: Three views of the lumbosacral spine. FINDINGS: There is normal alignment. Vertebral body heights are maintained. No evidence of acute fracture. Disc spaces are relatively maintained. In the partially imaged abdomen, there is a prominent air within the bowel wall loops, with the presence of air-fluid levels. It is unclear if this is present within the small or large bowel loops. There are 2 linear radiopaque objects within the right side of the pelvis, indeterminate. XR/XR lumbar spine 2-3V IMPRESSION: No evidence of acute fracture or malalignment in the lumbar spine. Apparent distended bowel loops, with multiple air-fluid levels, incompletely imaged and evaluated. Recommend abdominal radiographs of further evaluation.
--- NOTE | ~2021-08-17 | CT_ITS ---
EXAMINATION: CT head/brain wo con, CT cervical spine wo con INDICATION INFORMATION: Altered mental status,, fall COMPARISON: CT head 12/25/2019 TECHNIQUE: Separate noncontrast CT examinations of the head and cervical spine were performed. Coronal and sagittal reformats were obtained at the acquisition workstation. DLP: 928 mGy-cm FINDINGS: HEAD: There is no evidence of acute intracranial hemorrhage or territorial infarction. Nelson to white matter differentiation is well preserved. No abnormal mass effect or midline shift is seen. No extra-axial fluid collections are identified. Commensurate prominence of the ventricles and sulci is compatible with generalized parenchymal volume loss. The cerebellar tonsils are well positioned. No acute calvarial fracture. Stable left basal ganglia mineralization. The mastoid air cells and visualized portions of the paranasal sinuses are well aerated. CERVICAL SPINE: Motion artifact degrading images, limiting evaluation. Particular, this limits evaluation of the C1 vertebrae, the skull base, C2 dens.. The craniocervical and atlantoaxial articulation is grossly maintained. Otherwise, no acute fracture is seen of the cervical spine. Body heights are maintained. Posterior alignment is maintained. Mild C2-C3, C3-C4 disc degeneration. .No prevertebral soft tissue swelling. There is no cervical lymphadenopathy. No suspicious findings. The visualized lung apices are clear. CT/CT cervical spine wo con IMPRESSION: No CT evidence of acute intracranial pathology. Motion artifact limits evaluation of the craniocervical junction, the C1 and C2 vertebral body, including the dens. Repeat CT scan for further evaluation as clinically warranted. In the remainder of the cervical spine, no acute fracture or subluxation is seen..
[2021-08-17 08:43] VITALS: BP 154/89; PULSE 83; RESP 18; TEMP 36.9; O2SAT 97; BMI 21.6
--- NOTE | 2021-08-17 09:20 | ECG_ITS ---
Test Reason : FALL Blood Pressure : / mmHG Vent. Rate : 087 BPM Atrial Rate : 087 BPM P-R Int : 152 ms QRS Dur : 082 ms QT Int : 362 ms P-R-T Axes : 073 046 057 degrees QTc Int : 435 ms Normal sinus rhythm Possible Left atrial enlargement Minimal voltage criteria for LVH, may be normal variant ( Sokolow-Quiroz ) Borderline ECG When compared with ECG of 16-JUN-2018 11:27, Nonspecific T wave abnormality no longer evident in Anterior leads Referred By: Jody Ferrell Electronically Signed By:FAUSTINO DIAZ
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
[2021-08-17 10:17] LABS: Basophils Percent Auto 0.2 % (0-2); Hematocrit 39.6 % (42.0-52.0); Imm Gran Pct Auto 0.6 % (0.0-0.4); Lymphocytes Absolute Auto 0.3 X10*3/uL (1.2-4.9); Lymphocytes Percent Auto 1.8 % (20-40); MANUAL DIFF FLAG SCAN; Mean Corpuscular HGB Conc 32.8 g/dl (31.0-36.0); Mean Corpuscular Hemoglobin 29.6 pg (27.0-33.0); Mean Corpuscular Volume 90.2 fL (80.0-98.0); Mean Platelet Volume 9.9 fL (9.4-12.4); Monocytes Absolute Auto 0.4 X10*3/uL (0.1-1.2); Monocytes Percent Auto 2.3 % (2-11); Neutrophils Absolute Auto 16.7 x10*3/uL (2.0-8.3); Neutrophils Percent Auto 95.1 % (45-73); Platelet Count 270 X10*3/uL (160-400); Red Blood Count 4.39 X10*6/uL (4.60-5.80); Red Cell Distribution Width 13.5 % (11.0-16.0); SCAN SMEAR FLAG 1; White Blood Count 17.6 X10*3/uL (4.8-10.8)
[2021-08-17 10:32] LABS: Anion Gap 16 (12-20); Blood Urea Nitrogen 17 mg/dL (9-16); Calcium 10.1 mg/dL (8.4-10.2); Carbon Dioxide 25 mmol/L (22-29); Chloride 102 mmol/L (96-108); Creatinine Clr Calc Pharmacy 52.4; Estimated Glomerular Filt Rate > 60; Glucose Random 126 mg/dL (60-115); Potassium 4.7 mmol/L (3.3-5.1); Sodium 138 mmol/L (135-145)
[2021-08-17 10:40] LABS: Troponin-I High Sensitivity < 3.5 ng/L (<3.5-35.0)
[2021-08-17 10:46] LABS: SLIDE REVIEW VERIFIED
[2021-08-17 11:43] LABS: Alanine Aminotransferase 16 U/L (0-40); Albumin Level 4.3 g/dL (3.5-5.0); Alkaline Phosphatase 84 U/L (39-117); Aspartate Amino Transferase 19 U/L (5-37); Bilirubin Direct 0.2 mg/dL (0.0-0.5); Bilirubin Total 0.5 mg/dL (0.0-1.0); Total Protein 7.2 g/dL (6.5-8.0)
--- NOTE | 2021-08-17 14:16 | PC.NURSE ---
pt resting comfortably with no complaints of pain. Waiting on patient to void for urine sample.
[2021-08-17 15:34] LABS: Appearance Urine CLEAR; Color Urine DK YELLOW; Glucose Urine UA NEG (NEG); Leukocyte Esterase Urine NEG (NEG); Nitrite Urine NEG (NEG); Specific Gravity - Urine >= 1.030 (1.005-1.025); UACC Culture Trigger NO; Urine Blood TRACE (NEG); Urine Ketones 40 MG/DL (NEG); Urine Protein TRACE MG/DL (NEG-TRACE)
[2021-08-17 16:01] LABS: Amorphous Sediment Urine TRACE /LPF; Mucus Urine 2+ /LPF; Renal Epithelial Cells Urine 1+ /LPF; Squamous Epithelial Cell Urine 1+ /LPF; WBC Urine 0 /HPF (0-4)
[2021-08-17 16:46] VITALS: BP 144/87; PULSE 87; RESP 16; TEMP 36.4; O2SAT 98
--- NOTE | 2021-08-17 19:38 | PC.NURSE ---
Addendum entered by Annamaria Boss RN 08/17/21 19:40: Patients discharge was entered at 1513. Called residence at 530pm. Original Note: Called [facility] x 3 times left 2 voicemails no response back. Charge Nurse Lindy called and spoke to employee stated they would come get him in 10 minutes. Patient still waiting for a ride back to [facility].
--- NOTE | 2021-08-17 20:13 | PC.NURSE ---
This RN contacting [facility] regarding transportation home. Per [facility] staff, the person who drives the chairvan is unable to pick pt up @ this time. Staff advised there is no ambulance transportation home until morning. Staff trying to get other staff members to pick pt up as he has been discharged for several hours now and they had committed to transporting him home.
--- NOTE | 2021-08-17 20:44 | PC.NURSE ---
This [facility] called [facility] for a s transfer home.Renee from [facility] stated there is no transfers due to staffing until morning. learning coach aware
== END 2021-08-17 21:01 | disposition home or self-care (01) ==
PROVIDERS: Nurse Practitioner Family; Emergency Provider Emergency Medicine Emergency Medical Services; PCP Internal Medicine
DX: S40.022A Contusion of left upper arm, initial encounter (principal); S30.0XXA Contusion of lower back and pelvis, initial encounter; J18.9 Pneumonia, unspecified organism; R29.6 Repeated falls; K59.00 Constipation, unspecified; J44.9 Chronic obstructive pulmonary disease, unspecified; W03.XXXA Other fall on same level due to collision with another person, initial encounter; Y93.9 Activity, unspecified; Y92.199 Unspecified place in other specified residential institution as the place of occurrence of the external cause; Y99.9 Unspecified external cause status
CPT/HCPCS: 36415; 70450; 71046; 72100; 72125; 73030; 74176; 80048; 80076; 81001; 84484; 85025; 93005; 99284

== ENCOUNTER → 2021-09-25 09:08 | Outpatient (BNVA) | payer MEDICARE, MEDICAID, SELFPAY | PROVIDERS: PCP Internal Medicine; Visit Provider Nurse Practitioner | DX: K21.9 Gastro-esophageal reflux disease without esophagitis (principal); F20.2 Catatonic schizophrenia | CPT/HCPCS: 99212 ==

== ENCOUNTER 2021-10-04 10:29 | Emergency (ER) | payer MEDICARE, MEDICAID, SELFPAY ==
--- NOTE | ~2021-10-04 | XR_ITS ---
EXAMINATION: XR CHEST CLINICAL INFORMATION: Shortness of breath COMPARISON: Previous chest x-ray July 2021 TECHNIQUE: Frontal view of the chest was obtained. FINDINGS: The cardiac and mediastinal contours are stable. The lungs are clear. There is no pleural effusion or pneumothorax. There are are old bilateral rib fractures. There are degenerative changes of the spine. XR/XR chest 1V IMPRESSION: No evidence for acute disease in the chest.
[2021-10-04 10:35] VITALS: BP 111/62; BP 116/82; PULSE 103; PULSE 104; RESP 18; TEMP 37.7; O2SAT 97; BMI 18.3
--- NOTE | 2021-10-04 11:12 | ECG_ITS ---
Test Reason : WEAKNESS Blood Pressure : / mmHG Vent. Rate : 092 BPM Atrial Rate : 092 BPM P-R Int : 146 ms QRS Dur : 076 ms QT Int : 348 ms P-R-T Axes : 060 038 059 degrees QTc Int : 430 ms Normal sinus rhythm Possible Left atrial enlargement Nonspecific T wave abnormality Abnormal ECG When compared with ECG of 17-AUG-2021 09:50, Nonspecific T wave abnormality now evident in Lateral leads Referred By: Diana Bueno Electronically Signed By:FAUSTINO DIAZ
--- NOTE | 2021-10-04 11:13 | ED.MALEGU ---
HPI - Male Genitourinary General Chief complaint: Urogenital-Male Stated complaint: ?UTI Time Seen by Provider: 10/04/21 11:12 Source: patient and EMS Mode of arrival: EMS History of Present Illness HPI Narrative: 66-year-old male arrives via EMS from her home where staff reports that patient has had increased urinary incontinence and a foul odor. As per the staff he reports chills. Patient states that he is having ?pain at my waistline? and describes increased cough and shortness of breath but otherwise denies chest pain, fever, chills, abdominal pain. Related Data Home Medications Medication Instructions Recorded Confirmed clozapine 100 mg tablet 200 mg PO BEDTIME 11/27/20 02/24/21 fluoxetine 20 mg capsule 40 mg PO DAILY 11/27/20 02/24/21 lorazepam 0.5 mg tablet 0.5 mg PO BEDTIME Anxiety 12/12/20 02/24/21 polyvinyl alcohol 1.4 % eye drops 0 drp ophthalmic (eye) 07/03/21 (Artificial Tears (polyvinyl alcohol)) clozapine 25 mg tablet 50 mg PO BEDTIME 08/13/21 Previous Rx's Medication Instructions Recorded pull ups small #100 ea 06/05/20 clotrimazole 1 % topical cream 1 appl topical BID 2 weeks #30 12/12/20 grams zinc oxide-cod liver oil 40 % 1 appl topical BID PRN skin 02/18/21 topical paste (Desitin) irritation/rash #113 grams ENSURE #90 ea 05/22/21 levothyroxine 25 mcg tablet 25 mcg PO DAILY 90 days #90 tabs 05/26/21 starch (thickening) (Diafoods 1 ea PO TIDWMEAL 90 days #850 grams 07/02/21 Thick-It oral powder) omeprazole 20 mg capsule,delayed 20 mg PO BID 30 days #60 caps 07/03/21 release polyethylene glycol 3350 17 238 g PO BID PRN constipation 1 07/03/21 gram/dose oral powder (Miralax) day #476 grams sennosides 8.6 mg capsule (senna) 17.2 mg PO BEDTIME PRN 07/03/21 constipation 30 days #60 caps selenium sulfide 1 % shampoo 1 appl topical DAILY PRN dandruff 08/13/21 (Selsun Blue) #207 mL linaclotide 290 mcg capsule 290 mcg PO QAM 30 days #30 caps 08/14/21 (Linzess) desmopressin 0.1 mg tablet 0.1 mg PO BID 90 days #180 tabs 09/30/21 nitrofurantoin 100 mg PO Q12H 7 days #14 caps 10/04/21 monohydrate/macrocrystals 100 mg capsule (Macrobid) Allergies Allergy/AdvReac Type Severity Reaction Status Date / Time clindamycin Allergy Unknown Unknown Verified 10/04/21 10:35 Sulfa (Sulfonamide Allergy Unknown UNKNOWN Verified 10/04/21 10:35 Antibiotics) [SULFA(SULFONAMIDE ANTIBIOTICS)] sulfamethoxazole Allergy Unknown Unknown Verified 10/04/21 10:35 [From Bactrim] trimethoprim [From Bactrim] Allergy Unknown Unknown Verified 10/04/21 10:35 Review of Systems Review of Systems: Pertinent positives and negatives as stated in HPI 10 point review of systems is otherwise negative. [facility] Past Medical History Source: nursing notes reviewed Medical History Anemia Anxiety Asthma COPD (chronic obstructive pulmonary disease) Depression GERD (gastroesophageal reflux disease) Hypothyroid Impaired glucose tolerance Mentally challenged MVP (mitral valve prolapse) Oropharyngeal dysphagia Pneumonia Schizophrenia Tracheomalacia Tubular adenoma of colon Surgical History History of esophagogastroduodenoscopy (EGD) Hx of colonoscopy S/P tracheoplasty Family History Family History Family/Other Unknown family medical history Father Hypertension Mother Unknown family medical history Brother No problems noted. Sister No problems noted. Social History Social History Household Members Other:: [facility] in [facility] Housing: Other Housing Other:: Penitentiary Are you a primary intensive care unit nurse to a significant other at home: No Do you presently have visiting nurse or other home services: Yes (Resides in nursing home) Alcohol intake: former Patient Tobacco Use Status: Never used Tobacco e-Cigarette/Vaping Use: Never Used Second Hand Smoke Exposure: No Use of substances other than those prescribed or required for medical reasons: No Advance Directives: Yes Advance Directives on File: Yes Advance Directives Date on File: 11/28/20 service: No Current occupational status: disabled Cognitive needs: No Hearing needs: No Vision needs: No Physical Exam Vital Signs: Vital Signs: Last Vital Signs Temp 99.9 F 10/04/21 10:35 Pulse 100 10/04/21 13:55 Resp 18 10/04/21 13:55 BP 106/57 L 10/04/21 13:55 Pulse Ox 95 10/04/21 13:55 O2 Del Method 10/04/21 13:55 BMI result Body Mass Index 18.3 VITAL SIGNS: Reviewed. GENERAL: Chronically ill, cachectic, in no acute distress. HEAD: Normocephalic/atraumatic EYES: PERRLA, EOMI EARS: Ext canals without abnormality NOSE: Nares patent bilateral OROPHARYNX: no oral lesions noted, posterior pharynx clear NECK: Supple, no adenopathy LUNGS: Normal breath sounds. No adventitious sounds or accessory muscle use. SpO2<97>; CHEST WALL: No deformity or pain on palpation, no crepitus CARDIOVASCULAR: Regular rate and rhythm without noted murmurs ABDOMEN: Soft, non-tender, non-distended with bowel sounds. No rigidity. No guarding. No palpable masses or hernias noted MUSCULOSKELETAL: No tenderness, deformities, or effusions noted on gross inspection. EXTREMITIES: No cyanosis, clubbing or edema. SKIN: Inspection of the skin reveals no rashes NEUROLOGIC: Alert and oriented x 2. Strength and sensation to light touch were grossly intact x 4. Course Course Course Narrative: 66-year-old male with history and clinical presentation suggestive of possible UTI, urinary retention and will evaluate for any etiology of infection or anemia. Review of all investigations demonstrates that patient has a UTI and is COVID 19 positive. He received initial antibiotics here and then discharged back to his facility with a remaining course. MDM - Male Genitourinary Lab Data Result diagrams: 10/04/21 11:58 10/04/21 11:58 Labs: Lab Results 10/04/21 10/04/21 10/04/21 Range/Units 11:57 11:58 11:58 WBC 10.3 (4.8-10.8) X10*3/uL RBC 4.35 L (4.60-5.80) X10*6/uL Hgb 13.0 L (14.0-18.0) g/dl Hct 39.0 L (42.0-52.0) % MCV 89.7 (80.0-98.0) fL MCH 29.9 (27.0-33.0) pg MCHC 33.3 (31.0-36.0) g/dl RDW 13.9 (11.0-16.0) % Plt Count 272 (160-400) X10*3/uL MPV 10.4 (9.4-12.4) fL Immature Gran % (Auto) 0.6 H (0.0-0.4) % Neut % (Auto) 92.6 H (45-73) % Lymph % (Auto) 1.8 L (20-40) % [place] % (Auto) 4.7 (2-11) % Eos % (Auto) 0.0 (0-4) % Baso % (Auto) 0.3 (0-2) % Lymph # (Auto) 0.2 L (1.2-4.9) X10*3/uL [place] # (Auto) 0.5 (0.1-1.2) X10*3/uL Eos # (Auto) 0.0 (0.0-0.4) X10*3/uL Baso # (Auto) 0.0 (0.0-0.2) X10*3/uL Abs Immat Gran (auto) 0.06 H (0.00-0.03) X10*3/uL Absolute Neuts (auto) 9.5 H (2.0-8.3) x10*3/uL Absolute Nucleated RBC 0.000 (0.0-0.012) X10*3/uL Nucleated RBC % (auto) 0.0 (0.0-0.2) /100WBC Smear Tech's Comments VERIFIED PT 13.7 H (10.0-13.1) SEC INR 1.2 H (0.9-1.1) VBG pH (7.32-7.43) VBG pCO2 mmHg VBG pO2 mmHg VBG HCO3 (22-26) mmol/L VBG O2 Saturation % VBG Base Excess mmol/L Sodium (135-145) mmol/L Potassium (3.3-5.1) mmol/L Chloride (96-108) mmol/L Carbon Dioxide (22-29) mmol/L Anion Gap (12-20) BUN (9-16) mg/dL Creatinine (0.5-1.4) mg/dL Estim Creat Clear Calc Estimated GFR Random Glucose (60-115) mg/dL Calcium (8.4-10.2) mg/dL Total Bilirubin (0.0-1.0) mg/dL AST (5-37) U/L ALT (0-40) U/L Alkaline Phosphatase (39-117) U/L Total Protein (6.5-8.0) g/dL Albumin (3.5-5.0) g/dL Urine Color Urine Appearance Urine pH (5.0-8.0) Ur Specific [place] (1.005-1.025) Urine Protein (NEG-TRACE) MG/DL Urine Glucose (UA) (NEG) MG/DL Urine Ketones (NEG) MG/DL Urine Blood (NEG) Urine Nitrite (NEG) Ur Leukocyte Esterase (NEG) Urine RBC (0) /HPF Urine WBC (0-4) /HPF Ur Squamous Epith Cells /LPF Urine Bacteria /LPF COVID-19 ([facility]) Positive A (Negative) COVID-19 Clin Com See Note 10/04/21 10/04/21 10/04/21 Range/Units 11:58 12:10 13:57 WBC (4.8-10.8) X10*3/uL RBC (4.60-5.80) X10*6/uL Hgb (14.0-18.0) g/dl Hct (42.0-52.0) % MCV (80.0-98.0) fL MCH (27.0-33.0) pg MCHC (31.0-36.0) g/dl RDW (11.0-16.0) % Plt Count (160-400) X10*3/uL MPV (9.4-12.4) fL Immature Gran % (Auto) (0.0-0.4) % Neut % (Auto) (45-73) % Lymph % (Auto) (20-40) % [place] % (Auto) (2-11) % Eos % (Auto) (0-4) % Baso % (Auto) (0-2) % Lymph # (Auto) (1.2-4.9) X10*3/uL [place] # (Auto) (0.1-1.2) X10*3/uL Eos # (Auto) (0.0-0.4) X10*3/uL Baso # (Auto) (0.0-0.2) X10*3/uL Abs Immat Gran (auto) (0.00-0.03) X10*3/uL Absolute Neuts (auto) (2.0-8.3) x10*3/uL Absolute Nucleated RBC (0.0-0.012) X10*3/uL Nucleated RBC % (auto) (0.0-0.2) /100WBC Smear Tech's Comments PT (10.0-13.1) SEC INR (0.9-1.1) VBG pH 7.36 (7.32-7.43) VBG pCO2 41 mmHg VBG pO2 37 mmHg VBG HCO3 24 (22-26) mmol/L VBG O2 Saturation 52.0 % VBG Base Excess -1.3 mmol/L Sodium 135 (135-145) mmol/L Potassium 4.5 (3.3-5.1) mmol/L Chloride 98 (96-108) mmol/L Carbon Dioxide 25 (22-29) mmol/L Anion Gap 17 (12-20) BUN 16 (9-16) mg/dL Creatinine 1.25 (0.5-1.4) mg/dL Estim Creat Clear Calc 41.9 Estimated GFR 58 Random Glucose 107 (60-115) mg/dL Calcium 9.9 (8.4-10.2) mg/dL Total Bilirubin 0.5 (0.0-1.0) mg/dL AST 31 D (5-37) U/L ALT 17 (0-40) U/L Alkaline Phosphatase 125 H D (39-117) U/L Total Protein 7.3 (6.5-8.0) g/dL Albumin 4.4 (3.5-5.0) g/dL Urine Color YELLOW Urine Appearance HAZY Urine pH 6.0 (5.0-8.0) Ur Specific [place] >= 1.030 H (1.005-1.025) Urine Protein 1+ H (NEG-TRACE) MG/DL Urine Glucose (UA) NEG (NEG) MG/DL Urine Ketones 5 (NEG) MG/DL Urine Blood TRACE (NEG) Urine Nitrite NEG (NEG) Ur Leukocyte Esterase 1+ H (NEG) Urine RBC 0 (0) /HPF Urine WBC 15-29 H (0-4) /HPF Ur Squamous Epith Cells NONE /LPF Urine Bacteria 4+ /LPF COVID-19 ([facility]) (Negative) COVID-19 Clin Com ECG Data Attestation: I personally reviewed and interpreted this ECG as follows: Prior ECG tracings: available for review Interpretation: Normal sinus rhythm, HR-92, no STEMI, NM/QRS/QTC are within normal limits. Discharge Plan Discharge Clinical Impression: Lab test positive for detection of COVID-19 virus, Acute UTI Patient Disposition: Xfer Other Instructions: Urinary Tract Infection in Men (ED), COVID-19 (Coronavirus Disease 2019) (ED) Additional Instructions: 1. Resume all home medications. 2. You have been diagnosed with COVID-19 and must isolate for 5 days. 3. Complete the entire course of antibiotics for your urinary tract infection. 4. Follow-up with your primary care provider. Prescriptions: New nitrofurantoin monohyd/m-cryst [Macrobid] 100 mg capsule 100 mg PO Q12H 7 Days Qty: 14 0RF Rx Instructions: must administer with a meal/food No Action (DME) ENSURE See Rx Instructions .Route .MEDSUPPLY Qty: 90 11RF Rx Instructions: As directed levothyroxine 25 mcg tablet 25 mcg PO DAILY 90 Days Qty: 90 2RF Diafoods Thick-It Powder 1 ea PO TIDWMEAL 90 Days Qty: 850 3RF desmopressin 0.1 mg tablet 0.1 mg PO BID 90 Days Qty: 180 1RF fluoxetine 20 mg capsule 40 mg PO DAILY lorazepam 0.5 mg tablet 0.5 mg PO BEDTIME (DME) pull ups small See Rx Instructions .Route .MEDSUPPLY Qty: 100 11RF Rx Instructions: As directed clozapine 100 mg tablet 200 mg PO BEDTIME clotrimazole 1 % cream 1 appl topical BID 14 Days Qty: 30 0RF tuberculin PPD 5 tub. unit /0.1 mL solution 0.1 ml intradermal ONCE Qty: 0.1 0RF clozapine 25 mg tablet 50 mg PO BEDTIME Selsun Blue 1 % shampoo 1 appl topical DAILY PRN (Reason: dandruff) Qty: 207 0RF Rx Instructions: massage into affected area; leave on for 10 mins ; rinse off thoroughly Desitin 40 % paste 1 appl topical BID PRN (Reason: skin irritation/rash) Qty: 113 3RF polyvinyl alcohol [Artificial Tears (polyvin alc)] 1.4 % drops 0 drp ophthalmic (eye) omeprazole 20 mg capsule,delayed release(DR/EC) 20 mg PO BID 30 Days Qty: 60 6RF polyethylene glycol 3350 [Miralax] 17 gram/dose powder 238 g PO BID PRN (Reason: constipation) 1 Days Qty: 476 6RF Rx Instructions: Take as directed by mouth, bowel prep senna 8.6 mg capsule 17.2 mg PO BEDTIME PRN (Reason: constipation) 30 Days Qty: 60 6RF Linzess 290 mcg capsule 290 mcg PO QAM 30 Days Qty: 30 6RF
[2021-10-04 12:00] VITALS: BP 100/58; PULSE 90; RESP 16; O2SAT 95
[2021-10-04 12:17] LABS: COVID-19 Test Positive (Negative); IDNOW Serial# 16C4AD1C
[2021-10-04 12:18] LABS: VBG Base Excess -1.3 mmol/L; VBG HCO3 24 mmol/L (22-26); VBG pCO2 41 mmHg; VBG pH 7.36 (7.32-7.43); VBG pO2 37 mmHg
[2021-10-04 12:18] LABS: Basophils Percent Auto 0.3 % (0-2); Imm Gran Abs Auto 0.06 X10*3/uL (0.00-0.03); Imm Gran Pct Auto 0.6 % (0.0-0.4); Lymphocytes Absolute Auto 0.2 X10*3/uL (1.2-4.9); Lymphocytes Percent Auto 1.8 % (20-40); MANUAL DIFF FLAG SCAN; Mean Corpuscular HGB Conc 33.3 g/dl (31.0-36.0); Mean Corpuscular Hemoglobin 29.9 pg (27.0-33.0); Mean Corpuscular Volume 89.7 fL (80.0-98.0); Mean Platelet Volume 10.4 fL (9.4-12.4); Monocytes Absolute Auto 0.5 X10*3/uL (0.1-1.2); Monocytes Percent Auto 4.7 % (2-11); Neutrophils Absolute Auto 9.5 x10*3/uL (2.0-8.3); Neutrophils Percent Auto 92.6 % (45-73); Platelet Count 272 X10*3/uL (160-400); Red Blood Count 4.35 X10*6/uL (4.60-5.80); Red Cell Distribution Width 13.9 % (11.0-16.0); SCAN SMEAR FLAG 1; White Blood Count 10.3 X10*3/uL (4.8-10.8)
[2021-10-04 12:23] LABS: Venous Blood Gas Refer to POC result
[2021-10-04 12:23] LABS: INTERNATIONAL NORM RATIO 1.2 (0.9-1.1); Prothrombin Time 13.7 SEC (10.0-13.1)
[2021-10-04 12:26] LABS: Alanine Aminotransferase 17 U/L (0-40); Albumin Level 4.4 g/dL (3.5-5.0); Alkaline Phosphatase 125 U/L (39-117); Anion Gap 17 (12-20); Aspartate Amino Transferase 31 U/L (5-37); Bilirubin Total 0.5 mg/dL (0.0-1.0); Blood Urea Nitrogen 16 mg/dL (9-16); Calcium 9.9 mg/dL (8.4-10.2); Carbon Dioxide 25 mmol/L (22-29); Chloride 98 mmol/L (96-108); Creatinine Clr Calc Pharmacy 41.9; Estimated Glomerular Filt Rate 58; Glucose Random 107 mg/dL (60-115); Potassium 4.5 mmol/L (3.3-5.1); Sodium 135 mmol/L (135-145); Total Protein 7.3 g/dL (6.5-8.0)
[2021-10-04 12:38] LABS: SLIDE REVIEW VERIFIED
[2021-10-04 13:55] VITALS: BP 106/57; PULSE 100; RESP 18; O2SAT 95
[2021-10-04 14:06] LABS: Appearance Urine HAZY; Color Urine YELLOW; Glucose Urine UA NEG (NEG); Leukocyte Esterase Urine 1+ (NEG); Nitrite Urine NEG (NEG); Specific Gravity - Urine >= 1.030 (1.005-1.025); UACC Culture Trigger YES; Urine Blood TRACE (NEG); Urine Ketones 5 MG/DL (NEG); Urine Protein 1+ MG/DL (NEG-TRACE)
[2021-10-04 14:33] LABS: Bacteria Urine 4+ /LPF; RBC Urine 0 /HPF (0)
[2021-10-04 15:17] VITALS: BP 116/69; PULSE 89; RESP 16; TEMP 37.2; O2SAT 100
[2021-10-04] MEDS: Nitrofurantoin Monohyd/M-Cryst 100 MG CAPSULE PO (15:18)
== END 2021-10-04 16:44 | disposition other institution (70) ==
PROVIDERS: Emergency Provider Student in an Organized Health Care Education/Training Program
DX: U07.1 COVID-19 (principal); N39.0 Urinary tract infection, site not specified; B96.20 Unspecified Escherichia coli [E. coli] as the cause of diseases classified elsewhere
CPT/HCPCS: 51798; 71045; 80053; 81001; 81003; 82803; 85025; 85610; 87086; 87088; 87186; 87635; 93005; 99283; 99285

== ENCOUNTER 2021-10-10 01:17 | Inpatient (IN) | payer MEDICARE, MEDICAID, SELFPAY ==
[2021-10-10] VITALS (8 sets, daily range): BP systolic 97–158; BP diastolic 68–92; PULSE 72–95; RESP 10–22; O2SAT 95–99; BMI 14.8
--- NOTE | 2021-10-10 | ECG_ITS ---
Test Reason : GENERAL MEDICAL Blood Pressure : / mmHG Vent. Rate : 078 BPM Atrial Rate : 078 BPM P-R Int : 154 ms QRS Dur : 082 ms QT Int : 370 ms P-R-T Axes : 057 038 055 degrees QTc Int : 421 ms Normal sinus rhythm with sinus arrhythmia Possible Left atrial enlargement Nonspecific T wave abnormality Abnormal ECG When compared with ECG of 04-OCT-2021 12:22, No significant change was found Referred By: Keiry Álvarez Electronically Signed By:SUSAN GUZMAN
--- NOTE | ~2021-10-10 | MR_ITS ---
MRI CERVICAL AND THORACIC SPINE WITHOUT IV CONTRAST CLINICAL INFORMATION: Paraplegia. COMPARISON: Cervical spine CT 08/17/2021. TECHNIQUE: Multiplanar multisequence MR imaging of the cervical and thoracic spine obtained without IV contrast. Additionally, axial T2-weighted imaging of the lumbar spine was performed. FINDINGS: This is a very limited study. The patient can only be scanned for 15 minutes due to a MRI conditional endo-clip within the right colon. The obtained series are motion degraded and there is nondiagnostic assessment for signal abnormality within the cervical cord and for signal abnormality within the thoracic spinal cord. This study may need to be performed with anesthesia or sedation as clinically indicated. Within the cervical spine, there is no bone marrow edema. There are no acute fractures. The cervical vertebral body heights are maintained and the cervical disc volumes are preserved. The craniocervical junction is unremarkable. The cervical arterial flow voids are maintained. As discussed above, there is nondiagnostic assessment for cord signal abnormality. Uncovertebral joint spurring and facet arthropathy result in moderate left C3-C4, moderate left and moderate to severe right C4-C5, moderate bilateral C5-C6 and severe right and mild left C6-C7 foraminal stenosis. There is no severe central canal stenosis within the cervical spine. No cord compression. Within the thoracic spine, there are 12 rib-bearing thoracic type vertebral bodies. There are chronic compression fractures at T1, T2, T3, T4, T5, and T6. No bone marrow edema to suggest an acute fracture. As discussed above there is nondiagnostic assessment for thoracic cord signal abnormality due to the degree of artifact. Conus terminates at the L2 level. No significant thoracic disc herniations. There is no severe central canal stenosis and there is no severe foraminal stenosis within the thoracic spine. Partially imaged airspace opacity within the right lung kidney correlated for clinical signs of pneumonia and can be followed with chest x-ray. Axial T2-weighted imaging of the lumbar spine is performed which shows mild spondylitic changes and no severe central canal stenosis nor severe foraminal stenosis. Assessment is limited on this single series. There is no cauda equina compression. MR/MR cervical spine wo con IMPRESSION: - This is a very limited study. The patient can only be scanned for 15 minutes due to a MRI conditional endo-clip within the right colon. The obtained series are very motion degraded and there is nondiagnostic assessment for signal abnormality within the cervicothoracic spinal cord. This study may need to be performed with anesthesia or sedation as clinically indicated. - Within the cervical spine, spondylitic changes result in moderate left C3-C4, moderate left and moderate to severe right C4-C5, moderate bilateral C5-C6 and severe right and mild left C6-C7 foraminal stenosis. There is no severe central canal stenosis within the cervical spine. No cord compression. - Within the thoracic spine, there are chronic compression fractures at T1-T6. No acute fractures. No significant thoracic disc herniations. There is no severe central canal stenosis and there is no severe foraminal stenosis within the thoracic spine. - Partially imaged airspace opacity within the right lung kidney correlated for clinical signs of pneumonia and can be followed with chest x-ray.
--- NOTE | ~2021-10-10 | XR_ITS ---
EXAMINATION: XR CHEST CLINICAL INFORMATION: Covid COMPARISON: 10/04/2021 TECHNIQUE: Frontal view of the chest was obtained. FINDINGS: Cardiac leads overlie the chest. The lungs are well expanded. Linear atelectasis at the right base. No pleural effusion or pneumothorax. The cardiomediastinal silhouette is normal in size. No acute osseous abnormality. XR/XR chest 1V IMPRESSION: Linear right basilar atelectasis.
--- NOTE | ~2021-10-10 | CT_ITS ---
EXAMINATION: CT HEAD WITHOUT CONTRAST CLINICAL INFORMATION: Altered mental status COMPARISON: 08/17/2021 TECHNIQUE: Contiguous axial imaging was performed from the skull base to vertex without intravenous contrast. This CT examination was performed using dose optimization techniques as appropriate, variously including the following: * Automated exposure control * Adjustment of mA and/or kV according to patient size (this includes techniques or standardized protocols for targeted exams where dose is matched to indication/reason for exam; i.e. extremities or head) Use of iterative reconstruction technique DLP: 1247 mGy-cm. FINDINGS: There is no evidence of acute intracranial hemorrhage or territorial infarction. No abnormal mass effect or midline shift is seen. Nelson to white matter differentiation is well preserved. No extra-axial fluid collections are identified. No hydrocephalus. Proportional prominence of the ventricles and sulcal spaces is consistent with mild volume loss. There is no abnormal attenuation within the brain parenchyma. The osseous structures and soft tissues are normal. The mastoid air cells and visualized portions of the paranasal sinuses are well aerated. CT/CT head/brain wo con IMPRESSION: No acute intracranial pathology.
--- NOTE | ~2021-10-10 | XR_ITS ---
EXAMINATION: XR ABDOMEN KUB CLINICAL INDICATION: MRI screening. COMPARISON: CT scan of the abdomen and pelvis dated 08/17/2021. TECHNIQUE: AP view of the abdomen. FINDINGS: There is a nonobstructive bowel gas pattern. Moderate gas and stool are seen within the colon distally to the rectum. A metallic clip overlies the right lower quadrant. Minimal degenerative changes are noted in the lumbar spine and hips bilaterally. Sclerotic densities in the left iliac bone medially and left hip are again noted. XR/XR KUB IMPRESSION: 1. Nonobstructive bowel gas pattern. Moderate gas and stool in the colon similar to the previous CT scan. 2. One metallic clip overlying the right lower quadrant correlates in the previous CT scan. The other previously seen clip is not visualized.
[2021-10-10 02:06] LABS: MANUAL DIFF FLAG NO
[2021-10-10 02:08] LABS: Basophils Percent Auto 0.2 % (0-2); Eosinophils Percent Auto 0.4 % (0-4); Hematocrit 36.1 % (42.0-52.0); Hemoglobin 11.5 g/dl (14.0-18.0); Imm Gran Abs Auto 0.06 X10*3/uL (0.00-0.03); Imm Gran Pct Auto 1.2 % (0.0-0.4); Lymphocytes Percent Auto 20.8 % (20-40); Mean Corpuscular HGB Conc 31.9 g/dl (31.0-36.0); Mean Corpuscular Hemoglobin 28.9 pg (27.0-33.0); Mean Corpuscular Volume 90.7 fL (80.0-98.0); Mean Platelet Volume 10.6 fL (9.4-12.4); Monocytes Absolute Auto 0.3 X10*3/uL (0.1-1.2); Monocytes Percent Auto 6.7 % (2-11); Neutrophils Absolute Auto 3.5 x10*3/uL (2.0-8.3); Neutrophils Percent Auto 70.7 % (45-73); Platelet Count 227 X10*3/uL (160-400); Red Blood Count 3.98 X10*6/uL (4.60-5.80); Red Cell Distribution Width 14.3 % (11.0-16.0)
--- NOTE | 2021-10-10 02:17 | ED_ITS ---
HPI - General Adult General Chief complaint: Fall Stated complaint: GENERAL MALAISE,INCREASED CONFUSION COVID+ Time Seen by Provider: 10/10/21 01:28 Source: EMS Mode of arrival: EMS Limitations: altered mental status History of Present Illness HPI narrative: Patient has history of schizophrenia hyperthyroidism COPD COVID positive 4 days ago came from [facility] for increased weakness patient almost had a near fall witnessed without hitting his head decreased intake no fever or shortness of breath patient was saturating 99% on room air on arrival Related Data Home Medications Medication Instructions Recorded Confirmed clozapine 100 mg tablet 200 mg PO BEDTIME 11/27/20 02/24/21 fluoxetine 20 mg capsule 40 mg PO DAILY 11/27/20 02/24/21 lorazepam 0.5 mg tablet 0.5 mg PO BEDTIME Anxiety 12/12/20 02/24/21 polyvinyl alcohol 1.4 % eye drops 0 drp ophthalmic (eye) 07/03/21 (Artificial Tears (polyvinyl alcohol)) clozapine 25 mg tablet 50 mg PO BEDTIME 08/13/21 Previous Rx's Medication Instructions Recorded pull ups small #100 ea 06/05/20 clotrimazole 1 % topical cream 1 appl topical BID 2 weeks #30 12/12/20 grams zinc oxide-cod liver oil 40 % 1 appl topical BID PRN skin 02/18/21 topical paste (Desitin) irritation/rash #113 grams ENSURE #90 ea 05/22/21 levothyroxine 25 mcg tablet 25 mcg PO DAILY 90 days #90 tabs 05/26/21 starch (thickening) (Diafoods 1 ea PO TIDWMEAL 90 days #850 grams 07/02/21 Thick-It oral powder) omeprazole 20 mg capsule,delayed 20 mg PO BID 30 days #60 caps 07/03/21 release polyethylene glycol 3350 17 238 g PO BID PRN constipation 1 07/03/21 gram/dose oral powder (Miralax) day #476 grams sennosides 8.6 mg capsule (senna) 17.2 mg PO BEDTIME PRN 07/03/21 constipation 30 days #60 caps selenium sulfide 1 % shampoo 1 appl topical DAILY PRN dandruff 08/13/21 (Selsun Blue) #207 mL linaclotide 290 mcg capsule 290 mcg PO QAM 30 days #30 caps 08/14/21 (Linzess) desmopressin 0.1 mg tablet 0.1 mg PO BID 90 days #180 tabs 09/30/21 nitrofurantoin 100 mg PO Q12H 7 days #14 caps 10/04/21 monohydrate/macrocrystals 100 mg capsule (Macrobid) nirmatrelvir 150 mg-ritonavir 100 See Rx Instructions PO PER PKG DIR 10/07/21 mg tablets in a dose pack (EUA) 5 days #20 tabs (Paxlovid) Allergies Allergy/AdvReac Type Severity Reaction Status Date / Time clindamycin Allergy Unknown Unknown Verified 10/10/21 02:22 Sulfa (Sulfonamide Allergy Unknown UNKNOWN Verified 10/10/21 02:22 Antibiotics) [SULFA(SULFONAMIDE ANTIBIOTICS)] sulfamethoxazole Allergy Unknown Unknown Verified 10/10/21 02:22 [From Bactrim] trimethoprim [From Bactrim] Allergy Unknown Unknown Verified 10/10/21 02:22 Review of Systems Review of Systems: Yes Unobtainable due to mental status PMFSH Past Medical History Medical History Anemia Anxiety Asthma COPD (chronic obstructive pulmonary disease) Depression GERD (gastroesophageal reflux disease) Hypothyroid Impaired glucose tolerance Mentally challenged MVP (mitral valve prolapse) Oropharyngeal dysphagia Pneumonia Schizophrenia Tracheomalacia Tubular adenoma of colon Surgical History History of esophagogastroduodenoscopy (EGD) Hx of colonoscopy S/P tracheoplasty Family History Family History Family/Other Unknown family medical history Father Hypertension Mother Unknown family medical history Brother No problems noted. Sister No problems noted. Social History Social History Household Members Other:: Resides in Intermediate Housing: Other Housing Other:: Intermediate Are you a primary care transport nurse to a significant other at home: No Do you presently have visiting nurse or other home services: Yes (Resides in nursing home) Alcohol intake: former Patient Tobacco Use Status: Never used Tobacco e-Cigarette/Vaping Use: Never Used Second Hand Smoke Exposure: No Advance Directives: Yes Advance Directives on File: Yes Advance Directives Date on File: 11/28/20 service: No Current occupational status: disabled Cognitive needs: No Hearing needs: No Vision needs: No Physical Exam ED Vital Signs: Vital Signs - 24 hr 10/10/21 02:22 10/10/21 04:09 10/10/21 06:34 Pulse Rate 91 82 80 Respiratory Rate 22 H 18 20 Blood Pressure 105/68 137/86 158/92 H Pulse Oximetry 97 99 98 Oxygen Delivery Method Room Air Room Air Room Air BMI result Body Mass Index 14.8 Appearance: Sleepy looks sick Eyes: PERRLA, No Nystagmus ENT: Pharynx normal. Oral Mucosa moist Neck: Normal inspection. Neck supple. CVS: Normal heart rate and rhythm. Pulses normal. Respiratory: No respiratory distress. Equal air entry bilateral, bilateral diffuse crackles Abdomen: Soft and nontender. Bowel sounds are present, no mass palpable, no CVA tenderness Skin: Skin warm and dry. Normal skin color. Normal skin turgor. Extremities: No lower extremity edema. No calf tenderness Neuro: Lethargic. No motor deficit. Medical Decision Making MDM Narrative Medical decision making narrative: Patient increased weakness, failure to thrive since patient diagnosed with COVID on 10/04 also had UTI patient was started on Macrobid patient is afebrile very lethargic and confused will give IV fluids recheck for UTI, Lab workup showed mild hypernatremia , LUIS ANGEL, Patient's chest x-ray negative for infiltrates saturating 99% at room air patient received 2 L of IV fluids at this time patient is feeling much better. Patient's lactic acid level is normal awaiting for the UA 640 am patient feeling much better now more awake alert communicating urine is negative except for slight blood will repeat chemistry and plan to discharge patient back [facility] Lab Data Lab results reviewed: Yes I reviewed the patient's lab results. Result diagrams: 10/10/21 02:02 10/10/21 02:02 Labs: Lab Results 10/10/21 10/10/21 10/10/21 Range/Units 02:02 02:02 04:43 WBC 5.0 (4.8-10.8) X10*3/uL RBC 3.98 L (4.60-5.80) X10*6/uL Hgb 11.5 L (14.0-18.0) g/dl Hct 36.1 L (42.0-52.0) % MCV 90.7 (80.0-98.0) fL MCH 28.9 (27.0-33.0) pg MCHC 31.9 (31.0-36.0) g/dl RDW 14.3 (11.0-16.0) % Plt Count 227 (160-400) X10*3/uL MPV 10.6 (9.4-12.4) fL Immature Gran % (Auto) 1.2 H (0.0-0.4) % Neut % (Auto) 70.7 (45-73) % Lymph % (Auto) 20.8 (20-40) % [place] % (Auto) 6.7 (2-11) % Eos % (Auto) 0.4 (0-4) % Baso % (Auto) 0.2 (0-2) % Lymph # (Auto) 1.0 L (1.2-4.9) X10*3/uL [place] # (Auto) 0.3 (0.1-1.2) X10*3/uL Eos # (Auto) 0.0 (0.0-0.4) X10*3/uL Baso # (Auto) 0.0 (0.0-0.2) X10*3/uL Abs Immat Gran (auto) 0.06 H (0.00-0.03) X10*3/uL Absolute Neuts (auto) 3.5 (2.0-8.3) x10*3/uL Absolute Nucleated RBC 0.000 (0.0-0.012) X10*3/uL Nucleated RBC % (auto) 0.0 (0.0-0.2) /100WBC Sodium 148 H (135-145) mmol/L Potassium 3.7 (3.3-5.1) mmol/L Chloride 108 (96-108) mmol/L Carbon Dioxide 28 (22-29) mmol/L Anion Gap 16 (12-20) BUN 28 H D (9-16) mg/dL Creatinine 1.57 H (0.5-1.4) mg/dL Estim Creat Clear Calc 29.2 Estimated GFR 44 Random Glucose 133 H (60-115) mg/dL Lactic Acid 1.0 (0.5-2.0) mmol/L Calcium 9.6 (8.4-10.2) mg/dL Total Bilirubin 0.5 (0.0-1.0) mg/dL AST 12 D (5-37) U/L ALT 8 (0-40) U/L Alkaline Phosphatase 82 D (39-117) U/L Total Protein 6.4 L (6.5-8.0) g/dL Albumin 3.6 (3.5-5.0) g/dL Urine Color Urine Appearance Urine pH (5.0-8.0) Ur Specific [place] (1.005-1.025) Urine Protein (Neg-Trace) mg/dL Urine Glucose (UA) (Negative) mg/dL Urine Ketones (Negative) mg/dL Urine Blood (Negative) Urine Nitrite (Negative) Ur Leukocyte Esterase (Negative) 10/10/21 Range/Units 06:01 WBC (4.8-10.8) X10*3/uL RBC (4.60-5.80) X10*6/uL Hgb (14.0-18.0) g/dl Hct (42.0-52.0) % MCV (80.0-98.0) fL MCH (27.0-33.0) pg MCHC (31.0-36.0) g/dl RDW (11.0-16.0) % Plt Count (160-400) X10*3/uL MPV (9.4-12.4) fL Immature Gran % (Auto) (0.0-0.4) % Neut % (Auto) (45-73) % Lymph % (Auto) (20-40) % [place] % (Auto) (2-11) % Eos % (Auto) (0-4) % Baso % (Auto) (0-2) % Lymph # (Auto) (1.2-4.9) X10*3/uL [place] # (Auto) (0.1-1.2) X10*3/uL Eos # (Auto) (0.0-0.4) X10*3/uL Baso # (Auto) (0.0-0.2) X10*3/uL Abs Immat Gran (auto) (0.00-0.03) X10*3/uL Absolute Neuts (auto) (2.0-8.3) x10*3/uL Absolute Nucleated RBC (0.0-0.012) X10*3/uL Nucleated RBC % (auto) (0.0-0.2) /100WBC Sodium (135-145) mmol/L Potassium (3.3-5.1) mmol/L Chloride (96-108) mmol/L Carbon Dioxide (22-29) mmol/L Anion Gap (12-20) BUN (9-16) mg/dL Creatinine (0.5-1.4) mg/dL Estim Creat Clear Calc Estimated GFR Random Glucose (60-115) mg/dL Lactic Acid (0.5-2.0) mmol/L Calcium (8.4-10.2) mg/dL Total Bilirubin (0.0-1.0) mg/dL AST (5-37) U/L ALT (0-40) U/L Alkaline Phosphatase (39-117) U/L Total Protein (6.5-8.0) g/dL Albumin (3.5-5.0) g/dL Urine Color Yellow Urine Appearance Hazy Urine pH 6.0 (5.0-8.0) Ur Specific [place] 1.010 (1.005-1.025) Urine Protein Negative (Neg-Trace) mg/dL Urine Glucose (UA) Negative (Negative) mg/dL Urine Ketones Trace (Negative) mg/dL Urine Blood Large (3+) H (Negative) Urine Nitrite Negative (Negative) Ur Leukocyte Esterase Negative (Negative) Discharge Plan Discharge Clinical Impression: Adult failure to thrive, COVID-19, Hypernatremia, Acute renal failure Patient Disposition: Still a Patient Instructions: Failure to Thrive in Older Adults (ED), COVID-19 (Coronavirus Disease 2019) (ED) Additional Instructions: Drink plenty of fluids Follow with PCP for evaluation Prescriptions: No Action (DME) ENSURE See Rx Instructions .Route .MEDSUPPLY Qty: 90 11RF Rx Instructions: As directed levothyroxine 25 mcg tablet 25 mcg PO DAILY 90 Days Qty: 90 2RF Diafoods Thick-It Powder 1 ea PO TIDWMEAL 90 Days Qty: 850 3RF desmopressin 0.1 mg tablet 0.1 mg PO BID 90 Days Qty: 180 1RF Paxlovid (EUA) 150-100 mg tablets,dose pack See Rx Instructions PO PER PKG DIR 5 Days Qty: 20 0RF Rx Instructions: PO PER PKG DIR nirmatrelvit 150 mg with Ritonavir 100 mg BID fluoxetine 20 mg capsule 40 mg PO DAILY lorazepam 0.5 mg tablet 0.5 mg PO BEDTIME nitrofurantoin monohyd/m-cryst [Macrobid] 100 mg capsule 100 mg PO Q12H 7 Days Qty: 14 0RF Rx Instructions: must administer with a meal/food (DME) pull ups small See Rx Instructions .Route .MEDSUPPLY Qty: 100 11RF Rx Instructions: As directed clozapine 100 mg tablet 200 mg PO BEDTIME clotrimazole 1 % cream 1 appl topical BID 14 Days Qty: 30 0RF tuberculin PPD 5 tub. unit /0.1 mL solution 0.1 ml intradermal ONCE Qty: 0.1 0RF clozapine 25 mg tablet 50 mg PO BEDTIME Selsun Blue 1 % shampoo 1 appl topical DAILY PRN (Reason: dandruff) Qty: 207 0RF Rx Instructions: massage into affected area; leave on for 10 mins ; rinse off thoroughly Desitin 40 % paste 1 appl topical BID PRN (Reason: skin irritation/rash) Qty: 113 3RF polyvinyl alcohol [Artificial Tears (polyvin alc)] 1.4 % drops 0 drp ophthalmic (eye) omeprazole 20 mg capsule,delayed release(DR/EC) 20 mg PO BID 30 Days Qty: 60 6RF polyethylene glycol 3350 [Miralax] 17 gram/dose powder 238 g PO BID PRN (Reason: constipation) 1 Days Qty: 476 6RF Rx Instructions: Take as directed by mouth, bowel prep senna 8.6 mg capsule 17.2 mg PO BEDTIME PRN (Reason: constipation) 30 Days Qty: 60 6RF Linzess 290 mcg capsule 290 mcg PO QAM 30 Days Qty: 30 6RF
[2021-10-10 02:28] LABS: Alanine Aminotransferase 8 U/L (0-40); Albumin Level 3.6 g/dL (3.5-5.0); Alkaline Phosphatase 82 U/L (39-117); Anion Gap 16 (12-20); Aspartate Amino Transferase 12 U/L (5-37); Bilirubin Total 0.5 mg/dL (0.0-1.0); Blood Urea Nitrogen 28 mg/dL (9-16); Calcium 9.6 mg/dL (8.4-10.2); Carbon Dioxide 28 mmol/L (22-29); Chloride 108 mmol/L (96-108); Creatinine Clr Calc Pharmacy 29.2; Estimated Glomerular Filt Rate 44; Glucose Random 133 mg/dL (60-115); Potassium 3.7 mmol/L (3.3-5.1); Sodium 148 mmol/L (135-145); Total Protein 6.4 g/dL (6.5-8.0)
--- NOTE | 2021-10-10 02:30 | PC.NURSE ---
PT arrived by ambulance PCT Hermes and PCT Joan Combs changed over pt into [facility]. Vitals done and blood drawn.
[2021-10-10] MEDS: 0.9 % Sodium Chloride 1,000 ML 999 ML IV ×2 (02:55→04:35)
[2021-10-10] MEDS: cefTRIAXone sodium 1 GM in 0.9 % Sodium Chloride 50 ML IV (04:35)
[2021-10-10 06:17] LABS: Appearance Urine Hazy; Color Urine Yellow; Glucose Urine UA Negative (Negative); Leukocyte Esterase Urine Negative (Negative); Nitrite Urine Negative (Negative); Urine Blood Large (3+) (Negative); Urine Ketones Trace mg/dL (Negative); Urine Protein Negative (Neg-Trace)
[2021-10-10 06:54] LABS: WBC Urine 0-5 /HPF (0-5)
[2021-10-10 06:55] LABS: Bacteria Urine None Seen (None Seen); RBC Urine >20 /HPF (0-2); Squamous Epithelial Cell Urine 0-2 /HPF (0-2)
[2021-10-10 07:47] LABS: Anion Gap 16 (12-20); Blood Urea Nitrogen 22 mg/dL (9-16); Calcium 8.7 mg/dL (8.4-10.2); Carbon Dioxide 27 mmol/L (22-29); Chloride 110 mmol/L (96-108); Creatinine Clr Calc Pharmacy 44.2; Estimated Glomerular Filt Rate > 60; Glucose Random 86 mg/dL (60-115); Potassium 3.7 mmol/L (3.3-5.1); Sodium 149 mmol/L (135-145)
--- NOTE | 2021-10-10 09:21 | PC.NURSE ---
senior care staff notified of DC and instructions given to staff. Plan for [facility] to pick up man patient.
--- NOTE | 2021-10-10 10:06 | PC.NURSE ---
Addendum entered by Shoshana Doty RN 10/10/21 10:38: aware and at bedside for eval. Plan to review results and possibly admit. Original Note: Pt was to be discharged. Upon getting pt OOB the pt was unable to ambulate a few feet the the wheelchair. He was however able to lift himself out of the bed without difficulty but had some difficulty coordinating movement of his lower legs to be able to effectively ambulate to the wheelchair.
[2021-10-10 10:12] LABS: Hyaline Casts Urine 0-2 /LPF (0-2)
[2021-10-10 11:14] LABS: Magnesium 1.9 mg/dL (1.6-2.6)
[2021-10-10 11:33] LABS: COVID-19 Test Positive (Negative); IDNOW Serial# 16C4AD1C
[2021-10-10 11:48] LABS: Vitamin B12 1043 pg/mL (200-900)
--- NOTE | 2021-10-10 13:00 | PHA.MEDREC ---
Pharmacy Consult ? Medication Reconciliation Pharmacy has completed the medication reconciliation. Patient is a poor historian of medications. Contacted [facility] and was able to get a faxed med list. Patient claim history reports recently prescribed paxlovid, however [facility] med list omits drug from list.
--- NOTE | 2021-10-10 13:49 | P.HPHOSP_ITS ---
History of Present Illness Date of Service: 10/10/21 <LOWELL Tsai - Last Filed: 10/10/21 15:28> Attending physician on admission: Darnell Duenas <Darnell Duenas MD - Last Filed: 10/10/21 16:07> Chief Complaint: Altered mental status, gait ataxia, failure to thrive <LOWELL Tsai - Last Filed: 10/10/21 15:28> 66 year old male with history significant for hypothyroidism, normocytic anemia, GERD, schizophrenia, chronic constipation, and failure to thrive presented to the ED this morning for evaluation of altered mental status and fall. Discussed patient with Floresita, residential work at the [facility] whe re patient lives. Patient has been in isolation with COVID 19 since diagnosis on 10/04 when he tested positive at [facility] and also tested positive for UTI, treated with macrobid for 1 week. He was started on paxlovid on 10/07 for his symptoms and continued all home medications. Last night she reports patient had confusion increased from baseline asking for morning meds at 1230 am and insisting that the clock was wrong. He went to sit down and slid off the chair. He was also noted to having forgotten how to walk since last night. Initially cleared to go home from ED, but gait ataxia noted in conjunction with mild LUIS ANGEL and hypernatremia with creat of 1.57 and BUN 28 with sodium of 148. Received 2 L NS with improvement in creat to 1.04. Sodium with slight increase to 149. CT negative for abute intracranial abnormality. Urine with 3+ blood on UA with gross blood noted at urethral meatus. No apparent injury secondary to fall. Decrease in H/H to 11.5/36.1% from 13.0/39.0% from 6 days ago. He has not complaints. <LOWELL Tsai - Last Filed: 10/10/21 15:28> [facility] Medical History: Medical History Anemia Anxiety Asthma COPD (chronic obstructive pulmonary disease) Depression GERD (gastroesophageal reflux disease) Hypothyroid Impaired glucose tolerance Mentally challenged MVP (mitral valve prolapse) Oropharyngeal dysphagia Pneumonia Schizophrenia Tracheomalacia Tubular adenoma of colon <LOWELL Tsai - Last Filed: 10/10/21 15:28> Family History: Family History Family/Other Unknown family medical history Father Hypertension Mother Unknown family medical history Brother No problems noted. Sister No problems noted. <LOWELL Tsai - Last Filed: 10/10/21 15:28> Surgical History: Surgical History History of esophagogastroduodenoscopy (EGD) Hx of colonoscopy S/P tracheoplasty <LOWELL Tsai - Last Filed: 10/10/21 15:28> Social History: Social History Household Members Other:: [facility] in [facility] Housing: Other Housing Other:: [facility]iary Are you a primary dialysis patient care technician to a significant other at home: No Do you presently have visiting nurse or other home services: Yes (Resides in long-term) Alcohol intake: former Patient Tobacco Use Status: Never used Tobacco e-Cigarette/Vaping Use: Never Used Second Hand Smoke Exposure: No Advance Directives: Yes Advance Directives on File: Yes Advance Directives Date on File: 11/28/20 service: No Current occupational status: disabled Cognitive needs: No Hearing needs: No Vision needs: No <LOWELL Tsai Last Filed: 10/10/21 15:28> Meds Allergies/Adverse reactions: Allergies Allergy/AdvReac Type Severity Reaction Status Date / Time clindamycin Allergy Unknown Unknown Verified 10/10/21 02:22 Sulfa (Sulfonamide Allergy Unknown UNKNOWN Verified 10/10/21 02:22 Antibiotics) [SULFA(SULFONAMIDE ANTIBIOTICS)] sulfamethoxazole Allergy Unknown Unknown Verified 10/10/21 02:22 [From Bactrim] trimethoprim [From Bactrim] Allergy Unknown Unknown Verified 10/10/21 02:22 <LOWELL Tsai - Last Filed: 10/10/21 15:28> Active Medications: Current Medications Pharmacy Consult (Consult Rx Perform Med Rec) 1 each MISCELLANE ONCE PRN PRN Reason: Consult order <LOWELL Tsai Last Filed: 10/10/21 15:28> Home medications: Home Medications Medication Instructions Recorded Confirmed Last Taken Type clozapine 100 mg tablet 200 mg PO BEDTIME 11/27/20 10/10/21 10/10/21 History fluoxetine 20 mg capsule 40 mg PO DAILY 11/27/20 10/10/21 10/10/21 History lorazepam 0.5 mg tablet 0.5 mg PO BEDTIME Anxiety 12/12/20 10/10/21 10/10/21 History polyvinyl alcohol 1.4 % eye drops 1 drp ophthalmic (eye) QID 07/03/21 10/10/21 10/10/21 History (Artificial Tears (polyvinyl alcohol)) clozapine 25 mg tablet 50 mg PO BEDTIME 08/13/21 10/10/21 10/10/21 History ascorbic acid (vitamin C) 500 mg 500 mg PO DAILY 10/10/21 10/10/21 10/10/21 History tablet (Vitamin C) ferrous sulfate 324 mg (65 mg 324 mg PO DAILY 10/10/21 10/10/21 10/10/21 History iron) tablet,delayed release linaclotide 290 mcg capsule 290 mcg PO DAILY 10/10/21 10/10/21 10/10/21 History (Linzess) nirmatrelvir 150 mg-ritonavir 100 2 tab PO BID 10/10/21 10/10/21 10/10/21 History mg tablets in a dose pack (EUA) (Paxlovid) paliperidone 6 mg tablet,extended 6 mg PO DAILY 10/10/21 10/10/21 10/10/21 History release 24 hr triamcinolone acetonide 0.1 % 1 appl topical BID 10/10/21 10/10/21 10/10/21 History topical cream <LOWELL Tsai - Last Filed: 10/10/21 15:28> Physical Exam Vital Signs and Narrative: Vital Signs: Last Vital Signs Pulse 80 10/10/21 13:48 Resp 18 10/10/21 13:48 BP 149/83 H 10/10/21 13:48 Pulse Ox 98 10/10/21 13:48 O2 Del Method 10/10/21 13:48 BMI result Body Mass Index 14.8 <LOWELL Tsai - Last Filed: 10/10/21 15:28> Constitutional - Awake and Alert, No apparent distress Eyes - PERRLA, EOMI Cardiovascular - S1S2, RRR, III/ systolic ejection murmur, No edema Respiratory - Normal lung expansion, Normal respiratory effort, No respiratory distress, CTA bilaterally Gastrointestinal - NT / ND; +BS; No rebound or guarding - Gross blood from urethral meatus. No testicular masses or tendedness Rectal: Slightly decreased rectal tone, 2+ symmetric nontender prostate enlargement Extremities - no calf tenderness bilaterally, no swelling Musculoskeletal - Normal inspection, normal ROM Skin - Warm/Dry Neurological - Alert & oriented to self, confused. CN II-XII in tact, 4/5 strength BUE and BLE with right foot drop, downgoing babinski. Gait ataxia <LOWELL Tsai - Last Filed: 10/10/21 15:28> Results Labs CBC and Chem 7: : 10/10/21 02:02 10/10/21 07:19 <LOWELL Tsai - Last Filed: 10/10/21 15:28> Labs: Laboratory Results - last 24 hr 10/10/21 10/10/21 10/10/21 02:02 02:02 04:43 MCV 90.7 MCH 28.9 MCHC 31.9 RDW 14.3 Plt Count 227 MPV 10.6 Immature Gran % (Auto) 1.2 H Neut % (Auto) 70.7 Lymph % (Auto) 20.8 [place] % (Auto) 6.7 Eos % (Auto) 0.4 Baso % (Auto) 0.2 Lymph # (Auto) 1.0 L [place] # (Auto) 0.3 Eos # (Auto) 0.0 Baso # (Auto) 0.0 Abs Immat Gran (auto) 0.06 H Absolute Neuts (auto) 3.5 Absolute Nucleated RBC 0.000 Nucleated RBC % (auto) 0.0 Anion Gap 16 Estim Creat Clear Calc 29.2 Estimated GFR 44 Random Glucose 133 H Lactic Acid 1.0 Calcium 9.6 Magnesium Total Bilirubin 0.5 AST 12 D ALT 8 Alkaline Phosphatase 82 D Total Protein 6.4 L Albumin 3.6 Vitamin B12 Urine Color Urine Appearance Urine pH Ur Specific [place] Urine Protein Urine Glucose (UA) Urine Ketones Urine Blood Urine Nitrite Ur Leukocyte Esterase Urine RBC Urine WBC Ur Squamous Epith Cells Urine Bacteria Hyaline Casts COVID-19 ([facility]) COVID-19 Clin Com 10/10/21 10/10/21 10/10/21 06:01 07:19 07:19 MCV MCH MCHC RDW Plt Count MPV Immature Gran % (Auto) Neut % (Auto) Lymph % (Auto) [place] % (Auto) Eos % (Auto) Baso % (Auto) Lymph # (Auto) [place] # (Auto) Eos # (Auto) Baso # (Auto) Abs Immat Gran (auto) Absolute Neuts (auto) Absolute Nucleated RBC Nucleated RBC % (auto) Anion Gap 16 Estim Creat Clear Calc 44.2 Estimated GFR > 60 Random Glucose 86 D Lactic Acid Calcium 8.7 D Magnesium 1.9 Total Bilirubin AST ALT Alkaline Phosphatase Total Protein Albumin Vitamin B12 1043 H Urine Color Yellow Urine Appearance Hazy Urine pH 6.0 Ur Specific [place] 1.010 Urine Protein Negative Urine Glucose (UA) Negative Urine Ketones Trace Urine Blood Large (3+) H Urine Nitrite Negative Ur Leukocyte Esterase Negative Urine RBC >20 H Urine WBC 0-5 Ur Squamous Epith Cells 0-2 Urine Bacteria None Seen Hyaline Casts 0-2 COVID-19 ([facility]) COVID-19 [employer] 10/10/21 11:19 MCV MCH MCHC RDW Plt Count MPV Immature Gran % (Auto) Neut % (Auto) Lymph % (Auto) [place] % (Auto) Eos % (Auto) Baso % (Auto) Lymph # (Auto) [place] # (Auto) Eos # (Auto) Baso # (Auto) Abs Immat Gran (auto) Absolute Neuts (auto) Absolute Nucleated RBC Nucleated RBC % (auto) Anion Gap Estim Creat Clear Calc Estimated GFR Random Glucose Lactic Acid Calcium Magnesium Total Bilirubin AST ALT Alkaline Phosphatase Total Protein Albumin Vitamin B12 Urine Color Urine Appearance Urine pH Ur Specific [place] Urine Protein Urine Glucose (UA) Urine Ketones Urine Blood Urine Nitrite Ur Leukocyte Esterase Urine RBC Urine WBC Ur Squamous Epith Cells Urine Bacteria Hyaline Casts COVID-19 ([facility]) Positive A COVID-19 [employer] Com See Note <LOWELL Tsai - Last Filed: 10/10/21 15:28> Imaging Radiologist's Impressions: Impressions Chest X-Ray 10/10/21 02:33 IMPRESSION: Linear right basilar atelectasis. Head CT 10/10/21 05:05 IMPRESSION: No acute intracranial pathology. <LOWELL Tsai - Last Filed: 10/10/21 15:28> Assessment and Plan (1) Hypernatremia: Status: Acute <LOWELL Tsai - Last Filed: 10/10/21 15:28> (2) Metabolic encephalopathy: Status: Acute <LOWELL Tsai - Last Filed: 10/10/21 15:28> (3) LUIS ANGEL (acute kidney injury): Status: Acute <LOWELL Tsai - Last Filed: 10/10/21 15:28> (4) Ataxic gait: Status: Acute <LOWELL Tsai - Last Filed: 10/10/21 15:28> (5) Adult failure to thrive: Status: Acute <LOWELL Tsai - Last Filed: 10/10/21 15:28> Patient with hypothyroidism, GERD, normocytic anemia, schizophrenia, COPD, and failure to thrive admitted for metabolic encephalopathy, LUIS ANGEL, and hematuria. 1- LUIS ANGEL with hypernatremia- likely secondary to dehydration -Received 2L NS in ed with improvement in renal function to baseline -Mild increase in sodium secondary to NS administration -Continue fluids with IV D5W and 1/2NS -Recheck BMP am 2- Metabolic encephalopathy- confusion elevated from baseline per nursing staff likely secondary to hypernatremia -Continue IV fluids as above -MRI brain due to AMS with other noted focal neuro deficits -Consider interaction between paxlovid and clozapine. Psych consult ordered, EKG ordered 3-Gait ataxia/Foot drop- not present at baseline. Patient with deliberate steps and hesitancy with ambulation with inability to dorsiflex right foot -Head CT negative. MRI brain ordered -Neuro consult ordered -Patient had fall but no obvious injury on exam. Rectal tone slightly decreased but low suspicion for cauda equina 4-Gross blood urethral meatus -Recently treated for UTI with macrobid x 1 week. 3+ blood on UA. Urine culture ordered -2 point drop in hemoglobin in 1 week. Repeat CBC am -Urology consult placed 5. Failure to thrive with severe protein malnutrition- due to calorie deficiency- BM 14 -Nutrition consult placed. -Pureed diet due to dysphagia with ensure supplements 6- Schizophrenia- increased confusion likely secondary to hypernatremia, though possibly related to schizophrenia -Continue home meds 7- Hypothyroidism- TSH level pending -Continue levothyroxine 8-GERD- stable -continue omeprazole 9-COVID-19- diagnosed 10/04- symptomatically stable -Continue droplet precautions -Hold paxlovid- concern for interactions with home meds as above DVT prophylaxis- lovenox Full code Patient requires inpatient stay of at least 2 midnights due to altered mental status changed from baseline and management of LUIS ANGEL with electrolyte abnormalities requiring IV fluids. <LOWELL Tsai - Last Filed: 10/10/21 15:28> Patient with hypothyroidism, GERD, normocytic anemia, schizophrenia, COPD, and failure to thrive admitted for metabolic encephalopathy, LUIS ANGEL, and hematuria. 1- LUIS ANGEL with hypernatremia- likely secondary to dehydration -Received 2L NS in ed with improvement in renal function to baseline -Mild increase in sodium secondary to NS administration -Continue fluids with IV D5W and 1/2NS -Recheck BMP am 2- Metabolic encephalopathy- confusion elevated from baseline per nursing staff likely secondary to hypernatremia -Continue IV fluids as above -MRI brain due to AMS with other noted focal neuro deficits -Consider interaction between paxlovid and clozapine. Psych consult ordered, EKG ordered 3-Gait ataxia/Foot drop- not present at baseline. Patient with deliberate steps and hesitancy with ambulation with inability to dorsiflex right foot -Head CT negative. MRI brain ordered -Neuro consult ordered -Patient had fall but no obvious injury on exam. Rectal tone slightly decreased but low suspicion for cauda equina 4-Gross blood urethral meatus -Recently treated for UTI with macrobid x 1 week. 3+ blood on UA. Urine culture ordered -2 point drop in hemoglobin in 1 week. Repeat CBC am -Urology consult placed 5. Failure to thrive with severe protein malnutrition- due to calorie deficiency- 14 -Nutrition consult placed. -Pureed diet due to dysphagia with ensure supplements 6- Schizophrenia- increased confusion likely secondary to hypernatremia, though possibly related to schizophrenia -Continue home meds 7- Hypothyroidism- TSH level pending -Continue levothyroxine 8-GERD- stable -continue omeprazole 9-COVID-19- diagnosed 10/04- symptomatically stable -Continue droplet precautions -Hold paxlovid- concern for interactions with home meds as above DVT prophylaxis- lovenox Full code Attending MD: Natalia Patient requires inpatient stay of at least 2 midnights due to altered mental status changed from baseline and management of LUIS ANGEL with electrolyte abnormalities requiring IV fluids. I personally saw and examined this patient and reviewed, discussed all finding with midlevel and I agree with above, except as noted. He likely has toxic metabolic encephalopathy related to hypernatremia, Luis Angel and likely drug-drug interaction from Paxlovid with Cloazaril--Paxlovid can increase level to toxic range. Will therefore hold, get Psych consult, Hydrate and reassess. Clozaril tox level, follow CBC. <Darnell Duenas MD - Last Filed: 10/10/21 16:07> Quality Stroke Does the patient have a stroke diagnosis?: No <LOWELL Tsai - Last Filed: 10/10/21 15:28> VTE Prior VTE?: No <LOWELL Tsai - Last Filed: 10/10/21 15:28> VTE Risk Level:: Medical - moderate - high <LOWELL Tsai - Last Filed: 10/10/21 15:28> VTE Device Contraindication: Treatment Not Indicated <LOWELL Tsai - Last Filed: 10/10/21 15:28> VTE Drug Contraindication: N/A - Med Ordered <LOWELL Tsai - Last Filed: 10/10/21 15:28>
--- NOTE | 2021-10-10 15:36 | MHC.CLN ---
NUTRITION CONSULT FOR SEVERE MALNUTRITION AND FAILURE TO THRIVE. PATIENT IN ED. DIET=PUREE WITH NECTAR THICK LIQUIDS. PROVIDER ADDED ENSURE BID (700 KCALS, [address]). RD ADDING MAGIC CUP BID (580 KCALS, 18 G PROTEIN). SUPPLEMENTS PROVIDE ADDITIONAL 1280 KCALS, 58 G PROTEIN. RESIDES IN NURSING HOME. DX COVID, METABOLIC ENCEPHALOPATHY, ADULT FAILURE TO THRIVE. BMI=14.8. RD TO COMPLETE CLINICAL NUTRITION ASSESSMENT UPON ADMISSION TO UNIT.
--- NOTE | 2021-10-10 16:21 | PC.NURSE ---
MRI screening form completed with this RN and senior care staff to the best of our knowledge.
--- NOTE | 2021-10-10 19:00 | PC.NURSE ---
RN assumed care of patient at this time.
[2021-10-10] MEDS: Enoxaparin Sodium 40 MG/0.4 ML SYRINGE SUBCUT (19:23)
[2021-10-10] MEDS: 0.9 % Sodium Chloride Flush 3 ML SYRINGE IVFLUSH (19:24)
[2021-10-10] MEDS: Ascorbic Acid 500 MG TABLET PO (19:24)
[2021-10-10] MEDS: Omeprazole 20 MG CAPSULE.DR PO (19:24)
[2021-10-10] MEDS: Dextrose 5 % and 0.45 % NaCl 1,000 ML 125 ML IVCONT (19:32)
--- NOTE | 2021-10-10 22:23 | P.CNPS_ITS ---
History of Present Illness Date of Service: 10/10/2021 Chief Complaint: LUIS ANGEL hypernatremia gait ataxia Reason for Consult: Medication Requesting physician: Keiry Álvarez Sources of Information: patient interviewed and chart reviewed Additional Sources of Information: Dagoberto is a 66 y.o. Male who carries a dx of schizophrenia. Hx of failure to thrive. He presented to [facility] from [facility] care home on 10/10/21 due altered mental status and a mechanical fall. ED clinician spoke with pt?s residential staff who reports pt has been in isolation with COVID 19 since diagnosis on 10/04, tested positive at [facility] and also tested positive for UTI, treated with macrobid x 1 week. Pt was started on paxlovid on 10/07 for his COVID symptoms. Pt was admitted to [facility] due to increased confusion i.e. asking for morning meds at 1230 am and insisting that the clock was wrong. He went to sit down and slid off the chair. He was also noted to having forgotten how to walk since night of 10/10/21, initially presented with shuffling gait on arrival. Per his care home, at baseline pt walks unassisted at baseline. During workup, head CT was negative. Pt was mildly hypernatremic, LUIS ANGEL, which improved with fluids. Clozapine is currently being held due to interaction with paxlovid and prozac, which can both increase levels. Clozapine level is pending, will r/o toxicity as contributing factor to pt?s metabolic encephalopathy. Paxlovid is also being held for LUIS ANGEL. I attempted to evaluate the pt this evening and upon interview pt is found laying down in bed, almost asleep. Says he is ?okay.? When asked why he is in the hospital, pt says ?I have to be in the hospital, thats all.? Pt is not oriented to place (does not know what hospital this is), date, president, or situation. Unable to tell me what he ate for dinner. Overall, pt is not responding to questions, poverty of thought. [facility] Medical History Anemia Anxiety Asthma COPD (chronic obstructive pulmonary disease) Depression GERD (gastroesophageal reflux disease) Hypothyroid Impaired glucose tolerance Mentally challenged MVP (mitral valve prolapse) Oropharyngeal dysphagia Pneumonia Schizophrenia Tracheomalacia Tubular adenoma of colon Surgical History History of esophagogastroduodenoscopy (EGD) Hx of colonoscopy S/P tracheoplasty Diagnostics Vital Signs (24Hr): Vital Signs - 24 hr 10/10/21 02:22 10/10/21 04:09 10/10/21 06:34 Pulse Rate 91 82 80 Respiratory Rate 22 H 18 20 Blood Pressure 105/68 137/86 158/92 H Pulse Oximetry 97 99 98 Oxygen Delivery Method Room Air Room Air Room Air 10/10/21 08:28 10/10/21 09:30 10/10/21 13:48 Pulse Rate 86 84 80 Respiratory Rate 10 L 16 18 Blood Pressure 147/85 H 152/84 H 149/83 H Pulse Oximetry 99 99 98 Oxygen Delivery Method Room Air Room Air Room Air 10/10/21 22:10 Pulse Rate 72 Respiratory Rate 18 Blood Pressure 120/69 Pulse Oximetry 97 Oxygen Delivery Method Room Air BMI result Body Mass Index 14.8 Labs Results: 10/11/21 06:05 10/11/21 06:05 Labs: Laboratory Results - last 48 hr 10/10/21 10/10/21 10/10/21 02:02 02:02 04:43 WBC 5.0 RBC 3.98 L Hgb 11.5 L Hct 36.1 L MCV 90.7 MCH 28.9 MCHC 31.9 RDW 14.3 Plt Count 227 MPV 10.6 Immature Gran % (Auto) 1.2 H Neut % (Auto) 70.7 Lymph % (Auto) 20.8 [place] % (Auto) 6.7 Eos % (Auto) 0.4 Baso % (Auto) 0.2 Lymph # (Auto) 1.0 L [place] # (Auto) 0.3 Eos # (Auto) 0.0 Baso # (Auto) 0.0 Abs Immat Gran (auto) 0.06 H Absolute Neuts (auto) 3.5 Absolute Nucleated RBC 0.000 Nucleated RBC % (auto) 0.0 Sodium 148 H Potassium 3.7 Chloride 108 Carbon Dioxide 28 Anion Gap 16 BUN 28 H D Creatinine 1.57 H Estim Creat Clear Calc 29.2 Estimated GFR 44 Random Glucose 133 H Lactic Acid 1.0 Calcium 9.6 Magnesium Total Bilirubin 0.5 AST 12 D ALT 8 Alkaline Phosphatase 82 D Total Protein 6.4 L Albumin 3.6 Vitamin B12 TSH Urine Color Urine Appearance Urine pH Ur Specific [place] Urine Protein Urine Glucose (UA) Urine Ketones Urine Blood Urine Nitrite Ur Leukocyte Esterase Urine RBC Urine WBC Ur Squamous Epith Cells Urine Bacteria Hyaline Casts COVID-19 ([facility]) COVID-19 Clin Com 10/10/21 10/10/21 10/10/21 06:01 07:19 07:19 WBC RBC Hgb Hct MCV MCH MCHC RDW Plt Count MPV Immature Gran % (Auto) Neut % (Auto) Lymph % (Auto) [place] % (Auto) Eos % (Auto) Baso % (Auto) Lymph # (Auto) [place] # (Auto) Eos # (Auto) Baso # (Auto) Abs Immat Gran (auto) Absolute Neuts (auto) Absolute Nucleated RBC Nucleated RBC % (auto) Sodium 149 H Potassium 3.7 Chloride 110 H Carbon Dioxide 27 Anion Gap 16 BUN 22 H Creatinine 1.04 Estim Creat Clear Calc 44.2 Estimated GFR > 60 Random Glucose 86 D Lactic Acid Calcium 8.7 D Magnesium 1.9 Total Bilirubin AST ALT Alkaline Phosphatase Total Protein Albumin Vitamin B12 1043 H TSH 1.90 Urine Color Yellow Urine Appearance Hazy Urine pH 6.0 Ur Specific [place] 1.010 Urine Protein Negative Urine Glucose (UA) Negative Urine Ketones Trace Urine Blood Large (3+) H Urine Nitrite Negative Ur Leukocyte Esterase Negative Urine RBC >20 H Urine WBC 0-5 Ur Squamous Epith Cells 0-2 Urine Bacteria None Seen Hyaline Casts 0-2 COVID-19 ([facility]) COVID-19 Clin Com 10/10/21 11:19 WBC RBC Hgb Hct MCV MCH MCHC RDW Plt Count MPV Immature Gran % (Auto) Neut % (Auto) Lymph % (Auto) [place] % (Auto) Eos % (Auto) Baso % (Auto) Lymph # (Auto) [place] # (Auto) Eos # (Auto) Baso # (Auto) Abs Immat Gran (auto) Absolute Neuts (auto) Absolute Nucleated RBC Nucleated RBC % (auto) Sodium Potassium Chloride Carbon Dioxide Anion Gap BUN Creatinine Estim Creat Clear Calc Estimated GFR Random Glucose Lactic Acid Calcium Magnesium Total Bilirubin AST ALT Alkaline Phosphatase Total Protein Albumin Vitamin B12 TSH Urine Color Urine Appearance Urine pH Ur Specific [place] Urine Protein Urine Glucose (UA) Urine Ketones Urine Blood Urine Nitrite Ur Leukocyte Esterase Urine RBC Urine WBC Ur Squamous Epith Cells Urine Bacteria Hyaline Casts COVID-19 ([facility]) Positive A COVID-19 Clin Com See Note Imaging Radiology Impressions: ITS Impressions Chest X-Ray 10/10/21 02:33 IMPRESSION: Linear right basilar atelectasis. Head CT 10/10/21 05:05 IMPRESSION: No acute intracranial pathology. Mental Status Exam Mental Status Exam Narrative: Pt is alert but not oriented to time, place, situation. Frail, in hospital attire, appears older than stated age. Okay eye contact, inattentive. No Tics or Tremors. No abnormal involuntary movements. Calm, but unable to meaningfully engage. Pt is mostly non-verbal, short responses, quiet. Has prolonged speech latency. Mood is ?okay,? affect is flat. No imminent safety concerns. Poverty of thought. Appears to have memory impairment. Insight/ Judgment poor. Medications Medications Current Medications Artificial Tears (Artificial Tears 15 Ml Drops) 1 drop EYE-BOTH QID [facility] Last Admin: 10/10/21 22:07 Dose: Not Given Ascorbic Acid (Ascorbic Acid 500 Mg Tablet) 500 mg PO DAILY [facility] Last Admin: 10/10/21 19:24 Dose: 500 mg Desmopressin Acetate (Desmopressin Acetate 0.2 Mg Tablet) 0.1 mg PO BID [facility] Last Admin: 10/10/21 22:07 Dose: Not Given Enoxaparin Sodium (Enoxaparin Sodium 40 Mg/0.4 Ml Syringe) 40 mg SUBCUT Q24H [facility] Last Admin: 10/10/21 19:23 Dose: 40 mg Ferrous Sulfate (Ferrous Sulfate 324 Mg Tablet.) 324 mg PO DAILY [facility] Fluoxetine HCl (Fluoxetine Hcl 20 Mg Capsule) 40 mg PO DAILY [facility] Dextrose/Sodium Chloride (D51/2ns) 1,000 mls @ 125 mls/hr IVCONT .Q8H [facility] Last Admin: 10/10/21 19:32 Dose: 125 mls/hr Levothyroxine Sodium (Levothyroxine Sodium 25 Mcg Tablet) 25 mcg PO DAILY@0600 [facility] Non-Formulary Medication (Linaclotide [Linzess]) 290 mcg PO DAILY [facility] Omeprazole (Omeprazole 20 Mg Capsule.) 20 mg PO BID@0630,1630 [facility] Last Admin: 10/10/21 19:24 Dose: 20 mg Paliperidone (Paliperidone Er 6 Mg Tab.Er.24) 6 mg PO DAILY [facility] Pharmacy Consult (Consult Rx Perform Med Rec) 1 each MISCELLANE ONCE PRN PRN Reason: Consult order Senna (Sennosides 8.6 Mg Tablet) 17.2 mg PO BEDTIME PRN PRN Reason: constipation Sodium Chloride (0.9 % Sodium Chloride Flush 3 Ml Syringe) 3 ml IVFLUSH QSHIFT [facility] Last Admin: 10/10/21 19:24 Dose: 3 ml Allergies Allergies Allergy/AdvReac Type Severity Reaction Status Date / Time clindamycin Allergy Unknown Unknown Verified 10/10/21 02:22 Sulfa (Sulfonamide Allergy Unknown UNKNOWN Verified 10/10/21 02:22 Antibiotics) [SULFA(SULFONAMIDE ANTIBIOTICS)] sulfamethoxazole Allergy Unknown Unknown Verified 10/10/21 02:22 [From Bactrim] trimethoprim [From Bactrim] Allergy Unknown Unknown Verified 10/10/21 02:22 Assessment & Plan Assessment & Plan (1) Schizophrenia: Qualifiers: Schizophrenia type: catatonic schizophrenia Qualified Code(s): F20.2 - Catatonic schizophrenia Status: Acute Code(s): F20.9 - Schizophrenia, unspecified Plan Dagoberto is a 66 y.o. Male who carries a dx of schizophrenia. Hx of failure to thrive. He presented to [facility] from [facility] home on 10/10/21 due altered mental status, metabolic encephalopathy. Positive for?COVID 19 and UTI since 10/04, treated with macrobid x 1 week. Also given paxlovid, which is currenlty being held due to interaction with clozapine and LUIS ANGEL. Head CT negative. Pt presenting with new onset paraplegia, not ambulating. Plan: Will continue to hold clozapine to rule out clozapine delirium, level pending. Psych will continue to follow and evaluate need for inpatient psych admission upon medical clearance. Will obtain collateral contact from OP psychiatrist, Suman Salas, as pt?s psychiatric baseline is unknown. Thank you for this consultation. I spent minutes with the patient and/or on the patient floor today, greater than?50% of which was spent counseling/coordinating care. Patient educated on: other
[2021-10-11] VITALS (7 sets, daily range): BP systolic 103–134; BP diastolic 60–75; PULSE 58–92; RESP 12–17; TEMP 36.7–37.1; O2SAT 91–99
[2021-10-11] MEDS: Dextrose 5 % and 0.45 % NaCl 1,000 ML 125 ML IVCONT ×2 (01:27→06:25)
[2021-10-11] MEDS: 0.9 % Sodium Chloride Flush 3 ML SYRINGE IVFLUSH (01:27)
[2021-10-11] MEDS: Omeprazole 20 MG CAPSULE.DR PO ×2 (06:04→15:53)
[2021-10-11] MEDS: Levothyroxine Sodium 25 MCG TABLET PO (06:04)
[2021-10-11 06:32] LABS: MANUAL DIFF FLAG NO
[2021-10-11 06:37] LABS: Basophils Percent Auto 0.4 % (0-2); Eosinophils Absolute Auto 0.1 X10*3/uL (0.0-0.4); Eosinophils Percent Auto 1.4 % (0-4); Hematocrit 33.2 % (42.0-52.0); Hemoglobin 10.7 g/dl (14.0-18.0); Imm Gran Abs Auto 0.06 X10*3/uL (0.00-0.03); Imm Gran Pct Auto 1.2 % (0.0-0.4); Lymphocytes Absolute Auto 0.9 X10*3/uL (1.2-4.9); Lymphocytes Percent Auto 18.4 % (20-40); Mean Corpuscular HGB Conc 32.2 g/dl (31.0-36.0); Mean Corpuscular Hemoglobin 29.2 pg (27.0-33.0); Mean Corpuscular Volume 90.5 fL (80.0-98.0); Mean Platelet Volume 10.8 fL (9.4-12.4); Monocytes Absolute Auto 0.4 X10*3/uL (0.1-1.2); Monocytes Percent Auto 7.1 % (2-11); Neutrophils Absolute Auto 3.5 x10*3/uL (2.0-8.3); Neutrophils Percent Auto 71.5 % (45-73); Platelet Count 218 X10*3/uL (160-400); Red Blood Count 3.67 X10*6/uL (4.60-5.80); Red Cell Distribution Width 14.2 % (11.0-16.0); White Blood Count 4.9 X10*3/uL (4.8-10.8)
[2021-10-11 06:54] LABS: Anion Gap 13 (12-20); Blood Urea Nitrogen 16 mg/dL (9-16); Calcium 8.7 mg/dL (8.4-10.2); Carbon Dioxide 27 mmol/L (22-29); Chloride 106 mmol/L (96-108); Creatinine Clr Calc Pharmacy 62.1; Estimated Glomerular Filt Rate > 60; Glucose Random 111 mg/dL (60-115); Potassium 4.1 mmol/L (3.3-5.1); Sodium 142 mmol/L (135-145)
[2021-10-11] MEDS: Desmopressin Acetate 0.2 MG TABLET 0.1 MG PO (09:02)
[2021-10-11] MEDS: Ascorbic Acid 500 MG TABLET PO (09:02)
[2021-10-11] MEDS: Ferrous Sulfate 324 MG TABLET.DR PO (09:02)
[2021-10-11] MEDS: FLUoxetine HCl 20 MG CAPSULE 40 MG PO (09:02)
--- NOTE | 2021-10-11 09:14 | P.CNNE_ITS ---
History of Present Illness Data of Consult Service Date: 10/11/21 Primary Care Provider: Unknown Physician HPI Reason for consult: Confusion and difficulty walking 66 years old man whose history was mostly obtained from chart. He has previous history of schizophrenia living in a residential place, recent COVID. was noted to be confused and not able to walk. He also has been treated for UTI recently. There was no history of seizure. Review of Systems Review of Systems: Could not be reliably done with him PMFSH Past Medical History Medical History Anemia Anxiety Asthma COPD (chronic obstructive pulmonary disease) Depression GERD (gastroesophageal reflux disease) Hypothyroid Impaired glucose tolerance Mentally challenged MVP (mitral valve prolapse) Oropharyngeal dysphagia Pneumonia Schizophrenia Tracheomalacia Tubular adenoma of colon Family History Family History Family/Other Unknown family medical history Father Hypertension Mother Unknown family medical history Brother No problems noted. Sister No problems noted. Surgical History Surgical History History of esophagogastroduodenoscopy (EGD) Hx of colonoscopy S/P tracheoplasty Social History Social History Household Members Other:: Resides in [facility] Housing: Other Housing Other:: [facility] Are you a primary progressive care unit registered nurse to a significant other at home: No Do you presently have visiting nurse or other home services: Yes (Resides in long-term) Alcohol intake: former Patient Tobacco Use Status: Never used Tobacco e-Cigarette/Vaping Use: Never Used Second Hand Smoke Exposure: No Advance Directives: Yes Advance Directives on File: Yes Advance Directives Date on File: 11/28/20 service: No Current occupational status: disabled Cognitive needs: No Hearing needs: No Vision needs: No Meds Allergies Allergy/AdvReac Type Severity Reaction Status Date / Time clindamycin Allergy Unknown Unknown Verified 10/10/21 02:22 Sulfa (Sulfonamide Allergy Unknown UNKNOWN Verified 10/10/21 02:22 Antibiotics) [SULFA(SULFONAMIDE ANTIBIOTICS)] sulfamethoxazole Allergy Unknown Unknown Verified 10/10/21 02:22 [From Bactrim] trimethoprim [From Bactrim] Allergy Unknown Unknown Verified 10/10/21 02:22 Active Medications: Current Medications Artificial Tears (Artificial Tears 15 Ml Drops) 1 drop EYE-BOTH QID [facility] Last Admin: 10/10/21 22:07 Dose: Not Given Ascorbic Acid (Ascorbic Acid 500 Mg Tablet) 500 mg PO DAILY [facility] Last Admin: 10/11/21 09:02 Dose: 500 mg Desmopressin Acetate (Desmopressin Acetate 0.2 Mg Tablet) 0.1 mg PO BID [facility] Last Admin: 10/11/21 09:02 Dose: 0.1 mg Enoxaparin Sodium (Enoxaparin Sodium 40 Mg/0.4 Ml Syringe) 40 mg SUBCUT Q24H [facility] Last Admin: 10/10/21 19:23 Dose: 40 mg Ferrous Sulfate (Ferrous Sulfate 324 Mg Tablet.) 324 mg PO DAILY [facility] Last Admin: 10/11/21 09:02 Dose: 324 mg Fluoxetine HCl (Fluoxetine Hcl 20 Mg Capsule) 40 mg PO DAILY [facility] Last Admin: 10/11/21 09:02 Dose: 40 mg Dextrose/Sodium Chloride (D51/2ns) 1,000 mls @ 70 mls/hr IVCONT .[id number] [facility] Last Admin: 10/11/21 06:25 Dose: 125 mls/hr Levothyroxine Sodium (Levothyroxine Sodium 25 Mcg Tablet) 25 mcg PO DAILY@0600 [facility] Last Admin: 10/11/21 06:04 Dose: 25 mcg Non-Formulary Medication (Linaclotide [Linzess]) 290 mcg PO DAILY [facility] Omeprazole (Omeprazole 20 Mg Capsule.) 20 mg PO BID@0630,1630 [facility] Last Admin: 10/11/21 06:04 Dose: 20 mg Paliperidone (Paliperidone Er 6 Mg Tab.Er.24) 6 mg PO DAILY [facility] Pharmacy Consult (Consult Rx Perform Med Rec) 1 each MISCELLANE ONCE PRN PRN Reason: Consult order Senna (Sennosides 8.6 Mg Tablet) 17.2 mg PO BEDTIME PRN PRN Reason: constipation Sodium Chloride (0.9 % Sodium Chloride Flush 3 Ml Syringe) 3 ml IVFLUSH QSHIFT [facility] Last Admin: 10/11/21 07:27 Dose: Not Given Home Medications Medication Instructions Recorded Confirmed Last Taken Type clozapine 100 mg tablet 200 mg PO BEDTIME 11/27/20 10/10/21 10/10/21 History fluoxetine 20 mg capsule 40 mg PO DAILY 11/27/20 10/10/21 10/10/21 History lorazepam 0.5 mg tablet 0.5 mg PO BEDTIME Anxiety 12/12/20 10/10/21 10/10/21 History polyvinyl alcohol 1.4 % eye drops 1 drp ophthalmic (eye) QID 07/03/21 10/10/21 10/10/21 History (Artificial Tears (polyvinyl alcohol)) clozapine 25 mg tablet 50 mg PO BEDTIME 08/13/21 10/10/21 10/10/21 History ascorbic acid (vitamin C) 500 mg 500 mg PO DAILY 10/10/21 10/10/21 10/10/21 History tablet (Vitamin C) ferrous sulfate 324 mg (65 mg 324 mg PO DAILY 10/10/21 10/10/21 10/10/21 History iron) tablet,delayed release linaclotide 290 mcg capsule 290 mcg PO DAILY 10/10/21 10/10/21 10/10/21 History (Linzess) nirmatrelvir 150 mg-ritonavir 100 2 tab PO BID 10/10/21 10/10/21 10/10/21 History mg tablets in a dose pack (EUA) (Paxlovid) paliperidone 6 mg tablet,extended 6 mg PO DAILY 10/10/21 10/10/21 10/10/21 History release 24 hr triamcinolone acetonide 0.1 % 1 appl topical BID 10/10/21 10/10/21 10/10/21 History topical cream Physical Exam Vital Signs: Vital Signs: Last Vital Signs Temp 98.1 F 10/11/21 01:13 Pulse 76 10/11/21 06:34 Resp 17 10/11/21 06:07 BP 134/73 10/11/21 06:34 Pulse Ox 99 10/11/21 06:34 O2 Del Method 10/11/21 06:34 BMI result Body Mass Index 14.8 Neuro: Other: he is alert and awake looking around told me his 1st and last name and followed some one-step commands. He did not know where he was and what was going on. Face was symmetrical. Visual rico seem to be full. Extraocular muscles were intact. He was able to lift his arms and hands against gravity. There was significant intrinsic hand muscle atrophy and arthritic changes. He did not lift his legs against gravity and barely moved his feet. When I tried to move his legs, there was moderate spasticity. Knee reflexes were brisk and ankle reflexes were absent with flat plantars. Atrophy was also noted in legs. Results Labs CBC & Chem 7: 10/11/21 06:05 10/11/21 06:05 Labs: Short CBC 10/11/21 Range/Units 06:05 WBC 4.9 (4.8-10.8) X10*3/uL Hgb 10.7 L (14.0-18.0) g/dl Hct 33.2 L (42.0-52.0) % Plt Count 218 (160-400) X10*3/uL BMP 10/11/21 06:05 Sodium 142 Potassium 4.1 Chloride 106 Carbon Dioxide 27 BUN 16 Creatinine 0.74 [address]cium [address] revealed moderately severe cortical atrophy. Microbiology Microbiology Results: Microbiology 10/10/21 04:43 Blood - Venous Blood Culture - Preliminary No growth after 24 hours. 10/10/21 04:43 Blood - Venous Blood Culture - Preliminary No growth after 24 hours. Assessment and Plan (1) Metabolic encephalopathy: Status: Acute (2) Paraparesis: Status: Acute 66 years old man who was sent to hospital with confusion and not able to walk. His examination revealed paraparesis with relative hyperreflexia of knee reflexes with significant underlying atrophy suggestive of either did chronic diffuse peripheral neuropathy or poly radiculopathy. Despite that, hyperreflexia at knees was suggestive of a central lesion. Head CT did not reveal any obvious abnormality and there were no obvious cranial nerve findings. Explanation was likely in room the spine. If possible, do a sagittal T1 and T2 section of whole spine to localize area of interest. If not, obtain at least noncontrast MRI of cervical and thoracic spine. Procedures Date of Service Date of Service: 10/11/21
[2021-10-11] MEDS: Paliperidone ER 6 MG TAB.ER.24 PO (09:30)
[2021-10-11] MEDS: Artificial Tears 15 ML DROPS 1 DROP EYE-BOTH ×3 (09:30→17:06)
--- NOTE | 2021-10-11 10:44 | HO.PM.IMPN ---
Subjective Subjective Date of Service: 10/11/21 Interval History: cc: inability to walk interval history: still cant walk Cardiovascular Cardiovascular: Reports no additional cardiovascular complaints Respiratory Respiratory: Reports no additional respiratory complaints Physical Exam Vital Signs: Vital Signs: Last Vital Signs Temp 98.1 F 10/11/21 01:13 Pulse 76 10/11/21 06:34 Resp 17 10/11/21 06:07 BP 134/73 10/11/21 06:34 Pulse Ox 99 10/11/21 06:34 O2 Del Method 10/11/21 06:34 BMI result Body Mass Index 14.8 General: AO X 1, no acute distress, underweight Resp: CTA bilateral, no accessory muscles used CVS: S1,S2,RRR GI: soft, non tender, non distended Neuro: legs hyperreflexic, 4+/5 bilateral, alert Psych: appropriate affect, impaired insight Objective Data Active Medications Artificial Tears (Artificial Tears 15 Ml Drops) 1 drop EYE-BOTH QID [facility] Last Admin: 10/11/21 09:30 Dose: 1 drop Documented By: ALYSSA Ascorbic Acid (Ascorbic Acid 500 Mg Tablet) 500 mg PO DAILY [facility] Last Admin: 10/11/21 09:02 Dose: 500 mg Documented By: ALYSSA Desmopressin Acetate (Desmopressin Acetate 0.2 Mg Tablet) 0.1 mg PO BID [facility] Last Admin: 10/11/21 09:02 Dose: 0.1 mg Documented By: ALYSSA Enoxaparin Sodium (Enoxaparin Sodium 40 Mg/0.4 Ml Syringe) 40 mg SUBCUT Q24H [facility] Last Admin: 10/10/21 19:23 Dose: 40 mg Documented By: AL Ferrous Sulfate (Ferrous Sulfate 324 Mg Tablet.Dr) 324 mg PO DAILY [facility] Last Admin: 10/11/21 09:02 Dose: 324 mg Documented By: ALYSSA Fluoxetine HCl (Fluoxetine Hcl 20 Mg Capsule) 40 mg PO DAILY [facility] Last Admin: 10/11/21 09:02 Dose: 40 mg Documented By: ALYSSA Dextrose/Sodium Chloride (D51/2ns) 1,000 mls @ 70 mls/hr IVCONT .[id number] [facility] Last Admin: 10/11/21 06:25 Dose: 125 mls/hr Documented By: TYLER-ANDET Levothyroxine Sodium (Levothyroxine Sodium 25 Mcg Tablet) 25 mcg PO DAILY@0600 [facility] Last Admin: 10/11/21 06:04 Dose: 25 mcg Documented By: ROSLYN Non-Formulary Medication (Linaclotide [Linzess]) 290 mcg PO DAILY [facility] Omeprazole (Omeprazole 20 Mg Capsule.Dr) 20 mg PO BID@0630,1630 [facility] Last Admin: 10/11/21 06:04 Dose: 20 mg Documented By: ROSLYN Paliperidone (Paliperidone Er 6 Mg Tab.Er.24) 6 mg PO DAILY [facility] Last Admin: 10/11/21 09:30 Dose: 6 mg Documented By: ALYSSA Pharmacy Consult (Consult Rx Perform Med Rec) 1 each MISCELLANE ONCE PRN PRN Reason: Consult order Senna (Sennosides 8.6 Mg Tablet) 17.2 mg PO BEDTIME PRN PRN Reason: constipation Sodium Chloride (0.9 % Sodium Chloride Flush 3 Ml Syringe) 3 ml IVFLUSH QSHIFT [facility] Last Admin: 10/11/21 07:27 Dose: Not Given Documented By: ALYSSA Non-Admin Reason: Med Not Available Labs CBC & Chem 7: 10/11/21 06:05 10/11/21 06:05 Labs: Laboratory Results - last 24 hr 10/10/21 10/10/21 10/10/21 07:19 07:19 11:19 MCV MCH MCHC RDW Plt Count MPV Immature Gran % (Auto) Neut % (Auto) Lymph % (Auto) Castro % (Auto) Eos % (Auto) Baso % (Auto) Lymph # (Auto) Castro # (Auto) Eos # (Auto) Baso # (Auto) Abs Immat Gran (auto) Absolute Neuts (auto) Absolute Nucleated RBC Nucleated RBC % (auto) Anion Gap Estim Creat Clear Calc Estimated GFR Random Glucose Calcium Magnesium 1.9 Vitamin B12 1043 H TSH 1.90 COVID-19 ([facility]) Positive A COVID-19 Clin Com See Note 10/11/21 10/11/21 06:05 06:05 MCV 90.5 MCH 29.2 MCHC 32.2 RDW 14.2 Plt Count 218 MPV 10.8 Immature Gran % (Auto) 1.2 H Neut % (Auto) 71.5 Lymph % (Auto) 18.4 L Castro % (Auto) 7.1 Eos % (Auto) 1.4 Baso % (Auto) 0.4 Lymph # (Auto) 0.9 L Castro # (Auto) 0.4 Eos # (Auto) 0.1 Baso # (Auto) 0.0 Abs Immat Gran (auto) 0.06 H Absolute Neuts (auto) 3.5 Absolute Nucleated RBC 0.000 Nucleated RBC % (auto) 0.0 Anion Gap 13 Estim Creat Clear Calc 62.1 Estimated GFR > 60 Random Glucose 111 Calcium 8.7 Magnesium Vitamin B12 TSH COVID-19 ([facility]) COVID-19 Clin Com Microbiology Microbiology Results: Microbiology 10/10/21 04:43 Blood Culture - Preliminary Blood - Venous No growth after 24 hours. 10/10/21 04:43 Blood Culture - Preliminary Blood - Venous No growth after 24 hours. Assessment and Plan (1) Paraparesis: Status: Acute Plan 66M with pmh hypothyroid, GERD, normocytic anemia, schizophrenia, copd, presented with inability to ambulate, LUIS ANGEL, hypernatremia, confusion LUIS ANGEL with hypernatremia likely due to dehyrdation improved with hypotonic fluids metabolic encephalopathy with paraplegia neuro recommending spinal mri CTH unremarkable not improved with improved renal failure and hypernatremia FTT severe protein calorie malnutrtion nutrition eval dysphagia pureed diet schizophrenia psych follow up, clozaril on hold, check levels hypothyroid synthroid gerd ppi recent covid holding paxlovid for luis angel, no resp symptoms dvt prophylaxis - lovenox full code reason for continued hospitalization: working up paraplegia Quality Stroke Does the patient have a stroke diagnosis?: No VTE Prior VTE?: No VTE Risk Level:: Medical - moderate - high VTE Device Contraindication: Treatment Not Indicated VTE Drug Contraindication: N/A - Med Ordered
[2021-10-11 12:46] LABS: Glucose, Whole Blood 115 mg/dL (60-115)
--- NOTE | 2021-10-11 12:49 | PC.NURSE ---
Attempted to change pt this afternoon with truck technician Dontrell. Pt able to move self with no issues (as seen earlier in the am). However, when attempting to change pt this afternoon, pt very uncooperative with care, unable to follow directions for rolling over. After some conversation, this nurse and tech were able to clean and change the pt into a new gown. Pt is calm with no obvious distress. POC checked 115.
[2021-10-11] MEDS: Enoxaparin Sodium 40 MG/0.4 ML SYRINGE SUBCUT (15:53)
--- NOTE | 2021-10-11 18:04 | PC.NURSE ---
This nurse accompanied pt down to MRI. Pt tolerated MRI well, no apparent distress, pt states he is doing just fine .
[2021-10-11] MEDS: Dextrose 5 % and 0.45 % NaCl 1,000 ML 70 ML IVCONT (20:44)
--- NOTE | 2021-10-11 20:48 | PC.NURSE ---
Pt refused PO medications and eye drops. RN explained importance of medications, pt still refused. Allowed fluids to be started.
[2021-10-12] MEDS: Omeprazole 20 MG CAPSULE.DR PO ×2 (05:34→15:13)
[2021-10-12] MEDS: Levothyroxine Sodium 25 MCG TABLET PO (05:34)
[2021-10-12 06:00] VITALS: BP 128/92; PULSE 80; RESP 16; O2SAT 98
[2021-10-12 06:57] LABS: Hematocrit 36.9 % (42.0-52.0); Hemoglobin 11.9 g/dl (14.0-18.0); Mean Corpuscular HGB Conc 32.2 g/dl (31.0-36.0); Mean Corpuscular Hemoglobin 29.2 pg (27.0-33.0); Mean Corpuscular Volume 90.4 fL (80.0-98.0); Mean Platelet Volume 10.8 fL (9.4-12.4); Platelet Count 308 X10*3/uL (160-400); Red Blood Count 4.08 X10*6/uL (4.60-5.80); Red Cell Distribution Width 13.9 % (11.0-16.0); White Blood Count 5.5 X10*3/uL (4.8-10.8)
[2021-10-12 07:21] LABS: Anion Gap 17 (12-20); Blood Urea Nitrogen 10 mg/dL (9-16); Calcium 9.3 mg/dL (8.4-10.2); Carbon Dioxide 25 mmol/L (22-29); Chloride 102 mmol/L (96-108); Creatinine Clr Calc Pharmacy 64.7; Estimated Glomerular Filt Rate > 60; Glucose Fasting 132 mg/dL (60-99); Potassium 4.4 mmol/L (3.3-5.1); Sodium 140 mmol/L (135-145)
[2021-10-12 07:27] LABS: Glucose, Whole Blood 122 mg/dL (60-115)
[2021-10-12 07:34] VITALS: BP 135/58; PULSE 89; RESP 14; TEMP 36.6; O2SAT 100
[2021-10-12] MEDS: Dextrose 5 % and 0.45 % NaCl 1,000 ML 70 ML IVCONT (09:46)
[2021-10-12] MEDS: Desmopressin Acetate 0.2 MG TABLET 0.1 MG PO ×2 (09:47→20:52)
[2021-10-12] MEDS: FLUoxetine HCl 20 MG CAPSULE 40 MG PO (09:47)
[2021-10-12] MEDS: Ascorbic Acid 500 MG TABLET PO (09:47)
[2021-10-12] MEDS: Ferrous Sulfate 324 MG TABLET.DR PO (09:47)
[2021-10-12] MEDS: Artificial Tears 15 ML DROPS 1 DROP EYE-BOTH ×3 (09:49→20:53)
[2021-10-12] MEDS: 0.9 % Sodium Chloride Flush 3 ML SYRINGE IVFLUSH ×3 (09:49→20:55)
--- NOTE | 2021-10-12 09:55 | PC.NURSE ---
pt awake in room, took am medications in pudding without difficulty or reistance. iv fluids are infusingat 70ml hr
--- NOTE | 2021-10-12 10:35 | P.PNIM_ITS ---
Subjective Subjective Date of Service: 10/12/21 Interval History: cc: inability to walk interval history: still cant walk Cardiovascular Cardiovascular: Reports no additional cardiovascular complaints Respiratory Respiratory: Reports no additional respiratory complaints Physical Exam Vital Signs: Vital Signs: Last Vital Signs Temp 97.9 F 10/12/21 07:34 Pulse 89 10/12/21 07:34 Resp 14 10/12/21 07:34 BP 135/58 L 10/12/21 07:34 Pulse Ox 100 10/12/21 07:34 O2 Del Method 10/12/21 07:34 BMI result Body Mass Index 14.8 General: AO X 1, no acute distress, underweight Resp: CTA bilateral, no accessory muscles used CVS: S1,S2,RRR GI: soft, non tender, non distended Neuro: legs hyperreflexic, 4+/5 bilateral, alert Psych: appropriate affect, impaired insight Objective Data Active Medications Artificial Tears (Artificial Tears 15 Ml Drops) 1 drop EYE-BOTH QID [facility] Last Admin: 10/12/21 09:49 Dose: 1 drop Documented By: PADMAJA Ascorbic Acid (Ascorbic Acid 500 Mg Tablet) 500 mg PO DAILY [facility] Last Admin: 10/12/21 09:47 Dose: 500 mg Documented By: PADMAJA Desmopressin Acetate (Desmopressin Acetate 0.2 Mg Tablet) 0.1 mg PO BID [facility] Last Admin: 10/12/21 09:47 Dose: 0.1 mg Documented By: PADMAJA Enoxaparin Sodium (Enoxaparin Sodium 40 Mg/0.4 Ml Syringe) 40 mg SUBCUT Q24H [facility] Last Admin: 10/11/21 15:53 Dose: 40 mg Documented By: ALYSSA Ferrous Sulfate (Ferrous Sulfate 324 Mg Tablet.) 324 mg PO DAILY [facility] Last Admin: 10/12/21 09:47 Dose: 324 mg Documented By: PADMAJA Fluoxetine HCl (Fluoxetine Hcl 20 Mg Capsule) 40 mg PO DAILY [facility] Last Admin: 10/12/21 09:47 Dose: 40 mg Documented By: PADMAJA Dextrose/Sodium Chloride (D51/2ns) 1,000 mls @ 70 mls/hr IVCONT .[id number] [facility] Last Admin: 10/12/21 09:46 Dose: 70 mls/hr Documented By: PADMAJA Levothyroxine Sodium (Levothyroxine Sodium 25 Mcg Tablet) 25 mcg PO DAILY@0600 [facility] Last Admin: 10/12/21 05:34 Dose: 25 mcg Documented By: SHITAL Non-Formulary Medication (Linaclotide [Linzess]) 290 mcg PO DAILY [facility] Omeprazole (Omeprazole 20 Mg Capsule.) 20 mg PO BID@0630,1630 [facility] Last Admin: 10/12/21 05:34 Dose: 20 mg Documented By: SHITAL Paliperidone (Paliperidone Er 6 Mg Tab.Er.24) 6 mg PO DAILY [facility] Last Admin: 10/11/21 09:30 Dose: 6 mg Documented By: ALYSSA Pharmacy Consult (Consult Rx Perform Med Rec) 1 each MISCELLANE ONCE PRN PRN Reason: Consult order Senna (Sennosides 8.6 Mg Tablet) 17.2 mg PO BEDTIME PRN PRN Reason: constipation Sodium Chloride (0.9 % Sodium Chloride Flush 3 Ml Syringe) 3 ml IVFLUSH QSHIFT [facility] Last Admin: 10/12/21 09:49 Dose: 3 ml Documented By: PADMAJA Labs CBC & Chem 7: 10/12/21 06:17 10/12/21 06:17 Labs: Laboratory Results - last 24 hr 10/11/21 10/12/21 10/12/21 12:41 06:17 06:17 MCV 90.4 MCH 29.2 MCHC 32.2 RDW 13.9 Plt Count 308 D MPV 10.8 Absolute Nucleated RBC 0.000 Nucleated RBC % (auto) 0.0 Anion Gap 17 Estim Creat Clear Calc 64.7 Estimated GFR > 60 POC Glucose 115 Fasting Glucose 132 H Calcium 9.3 D 10/12/21 07:14 MCV MCH MCHC RDW Plt Count MPV Absolute Nucleated RBC Nucleated RBC % (auto) Anion Gap Estim Creat Clear Calc Estimated GFR POC Glucose 122 H Fasting Glucose Calcium Microbiology Microbiology Results: Microbiology 10/10/21 04:43 Blood Culture - Preliminary Blood - Venous No growth after 48 hours. 10/10/21 04:43 Blood Culture - Preliminary Blood - Venous No growth after 48 hours. Assessment and Plan (1) Paraparesis: Status: Acute Plan 66M with pmh hypothyroid, GERD, normocytic anemia, schizophrenia, copd, presented with inability to ambulate, LUIS ANGEL, hypernatremia, confusion LUIS ANGEL with hypernatremia likely due to dehyrdation resolved metabolic encephalopathy with paraplegia neuro recommended spinal mri - unremarkable CTH unremarkable not improved with improved renal failure and hypernatremia PT eval FTT severe protein calorie malnutrtion nutrition eval dysphagia pureed diet schizophrenia psych follow up, clozaril on hold, check levels hypothyroid synthroid gerd ppi recent covid holding paxlovid for luis angel, no resp symptoms dvt prophylaxis - lovenox full code reason for continued hospitalization: working up paraplegia Quality Stroke Does the patient have a stroke diagnosis?: No VTE Prior VTE?: No VTE Risk Level:: Medical - moderate - high VTE Device Contraindication: Treatment Not Indicated VTE Drug Contraindication: N/A - Med Ordered
[2021-10-12 11:17] VITALS: BP 138/76; PULSE 103; RESP 20; TEMP 37.1; O2SAT 98
[2021-10-12] MEDS: Enoxaparin Sodium 40 MG/0.4 ML SYRINGE SUBCUT (15:13)
[2021-10-12] MEDS: Paliperidone ER 6 MG TAB.ER.24 PO (15:13)
[2021-10-12 16:00] VITALS: BP 100/58; PULSE 72; RESP 12; TEMP 36.8; O2SAT 98
[2021-10-12 16:35] VITALS: BMI 14.8
[2021-10-12 20:00] VITALS: BP 120/62; PULSE 81; RESP 16; TEMP 36.9; O2SAT 97
[2021-10-12 23:22] VITALS: BP 120/58; PULSE 83; RESP 18; TEMP 37; O2SAT 97
[2021-10-13 03:33] VITALS: BP 125/59; PULSE 85; RESP 20; TEMP 36.9; O2SAT 98
[2021-10-13] MEDS: Levothyroxine Sodium 25 MCG TABLET PO (05:43)
[2021-10-13] MEDS: Omeprazole 20 MG CAPSULE.DR PO ×2 (05:43→16:04)
[2021-10-13 07:32] VITALS: BP 136/77; PULSE 83; RESP 20; TEMP 37.1; O2SAT 98
[2021-10-13] MEDS: FLUoxetine HCl 20 MG CAPSULE 40 MG PO (08:26)
[2021-10-13] MEDS: Ferrous Sulfate 324 MG TABLET.DR PO (08:26)
[2021-10-13] MEDS: Ascorbic Acid 500 MG TABLET PO (08:26)
[2021-10-13] MEDS: Paliperidone ER 6 MG TAB.ER.24 PO (08:26)
[2021-10-13] MEDS: Desmopressin Acetate 0.2 MG TABLET 0.1 MG PO ×2 (08:26→21:51)
[2021-10-13] MEDS: Artificial Tears 15 ML DROPS 1 DROP EYE-BOTH ×4 (08:27→21:51)
[2021-10-13] MEDS: 0.9 % Sodium Chloride Flush 3 ML SYRINGE IVFLUSH ×4 (08:27→23:25)
--- NOTE | 2021-10-13 11:21 | HO.PM.IMPN ---
Subjective Subjective Date of Service: 10/13/21 Interval History: cc: inability to walk interval history: still cant walk Cardiovascular Cardiovascular: Reports no additional cardiovascular complaints Respiratory Respiratory: Reports no additional respiratory complaints Physical Exam Vital Signs: Vital Signs: Last Vital Signs Temp 98.8 F 10/13/21 07:32 Pulse 83 10/13/21 07:32 Resp 20 10/13/21 07:32 BP 136/77 10/13/21 07:32 Pulse Ox 98 10/13/21 07:32 O2 Del Method 10/13/21 07:32 BMI result Body Mass Index 14.8 General: AO X 1, no acute distress, underweight Resp: CTA bilateral, no accessory muscles used CVS: S1,S2,RRR GI: soft, non tender, non distended Neuro: legs hyperreflexic, 4+/5 bilateral, alert Psych: appropriate affect, impaired insight Objective Data Active Medications Artificial Tears (Artificial Tears 15 Ml Drops) 1 drop EYE-BOTH QID [facility] Last Admin: 10/13/21 08:27 Dose: 1 drop Documented By: LAWANDA Ascorbic Acid (Ascorbic Acid 500 Mg Tablet) 500 mg PO DAILY [facility] Last Admin: 10/13/21 08:26 Dose: 500 mg Documented By: LAWANDA Desmopressin Acetate (Desmopressin Acetate 0.2 Mg Tablet) 0.1 mg PO BID [facility] Last Admin: 10/13/21 08:26 Dose: 0.1 mg Documented By: LAWANDA Enoxaparin Sodium (Enoxaparin Sodium 40 Mg/0.4 Ml Syringe) 40 mg SUBCUT Q24H [facility] Last Admin: 10/12/21 15:13 Dose: 40 mg Documented By: JULIUS Ferrous Sulfate (Ferrous Sulfate 324 Mg Tablet.) 324 mg PO DAILY [facility] Last Admin: 10/13/21 08:26 Dose: 324 mg Documented By: LAWANDA Fluoxetine HCl (Fluoxetine Hcl 20 Mg Capsule) 40 mg PO DAILY [facility] Last Admin: 10/13/21 08:26 Dose: 40 mg Documented By: LAWANDA Levothyroxine Sodium (Levothyroxine Sodium 25 Mcg Tablet) 25 mcg PO DAILY@0600 [facility] Last Admin: 10/13/21 05:43 Dose: 25 mcg Documented By: WILNERHMAZ Non-Formulary Medication (Linaclotide [Linzess]) 290 mcg PO DAILY [facility] Omeprazole (Omeprazole 20 Mg Capsule.) 20 mg PO BID@3130,0700 [facility] Last Admin: 10/13/21 05:43 Dose: 20 mg Documented By: MELISSA Paliperidone (Paliperidone Er 6 Mg Tab.Er.24) 6 mg PO DAILY [facility] Last Admin: 10/13/21 08:26 Dose: 6 mg Documented By: LAWANDA Pharmacy Consult (Consult Rx Perform Med Rec) 1 each MISCELLANE ONCE PRN PRN Reason: Consult order Senna (Sennosides 8.6 Mg Tablet) 17.2 mg PO BEDTIME PRN PRN Reason: constipation Sodium Chloride (0.9 % Sodium Chloride Flush 3 Ml Syringe) 3 ml IVFLUSH QSHIFT [facility] Last Admin: 10/13/21 08:27 Dose: 3 ml Documented By: LAWANDA Labs CBC & Chem 7: 10/12/21 06:17 10/12/21 06:17 Assessment and Plan (1) Paraparesis: Status: Acute Plan 66M with pmh hypothyroid, GERD, normocytic anemia, schizophrenia, copd, presented with inability to ambulate, LUIS ANGEL, hypernatremia, confusion LUIS ANGEL with hypernatremia likely due to dehyrdation resolved metabolic encephalopathy with paraplegia neuro recommended spinal mri - unremarkable CTH unremarkable not improved with improved renal failure and hypernatremia PT eval follow up neuro FTT severe protein calorie malnutrtion nutrition dysphagia pureed diet schizophrenia psych follow up, clozaril on hold, check levels hypothyroid synthroid gerd ppi recent covid holding paxlovid for luis angel, no resp symptoms dvt prophylaxis - lovenox full code reason for continued hospitalization: working up paraplegia Quality Stroke Does the patient have a stroke diagnosis?: No VTE Prior VTE?: No VTE Risk Level:: Medical - moderate - high VTE Device Contraindication: Treatment Not Indicated VTE Drug Contraindication: N/A - Med Ordered
[2021-10-13 11:50] VITALS: BP 132/65; PULSE 88; RESP 20; TEMP 37.2; O2SAT 97
[2021-10-13 13:18] VITALS: BMI 14.8
--- NOTE | 2021-10-13 13:26 | MHC.CM.PN ---
CM has been unable to reach either Contact (Sister/HCP/[facility] @ [phone] nor Sister/Nancy @ [phone]; CM is mailing original IMM to Itzel and a copy has been placed on the chart. Patient is from the [facility] and the plan appears to be for Patient to return there once medically cleared. CM has initiated and will follow for dc planning.Patient has received Omeros vax X3.
--- NOTE | 2021-10-13 13:40 | MHC.CM.PN ---
CM just received a return call from Patient's Sister/HCP/Stephanier and IMM will be mailed to her as previously mentioned.
[2021-10-13] MEDS: Enoxaparin Sodium 40 MG/0.4 ML SYRINGE SUBCUT (13:41)
[2021-10-13 15:20] VITALS: BP 133/70; PULSE 95; RESP 18; TEMP 36.7; O2SAT 96
[2021-10-13] MEDS: levETIRAcetam in NaCl (iso-os) 1,000 MG/100 ML PIGGYBACK 400 MG IV (16:04)
[2021-10-13 19:07] VITALS: BP 99/52; PULSE 82; RESP 18; TEMP 36.4; O2SAT 97
[2021-10-13] MEDS: levETIRAcetam in NaCl (iso-os) 500 MG/100 ML PIGGYBACK 400 MG IV (21:51)
[2021-10-13 23:16] LABS: Clozapine (Clozaril) 639 mcg/L; Norclozapine 370 mcg/L (25-400)
[2021-10-13 23:46] VITALS: BP 102/51; PULSE 82; RESP 18; TEMP 36.8; O2SAT 96
[2021-10-14 03:55] VITALS: BP 113/54; PULSE 84; RESP 20; TEMP 36.9; O2SAT 98
[2021-10-14] MEDS: Levothyroxine Sodium 25 MCG TABLET PO (05:42)
[2021-10-14] MEDS: Omeprazole 20 MG CAPSULE.DR PO ×2 (05:45→16:03)
[2021-10-14 07:49] VITALS: BP 98/56; PULSE 78; RESP 20; TEMP 37.2; O2SAT 97
[2021-10-14] MEDS: levETIRAcetam in NaCl (iso-os) 500 MG/100 ML PIGGYBACK 400 MG IV ×2 (09:20→21:46)
[2021-10-14] MEDS: Desmopressin Acetate 0.2 MG TABLET 0.1 MG PO ×2 (09:21→21:46)
[2021-10-14] MEDS: FLUoxetine HCl 20 MG CAPSULE 40 MG PO (09:21)
[2021-10-14] MEDS: Ascorbic Acid 500 MG TABLET PO (09:21)
[2021-10-14] MEDS: Ferrous Sulfate 324 MG TABLET.DR PO (09:21)
[2021-10-14] MEDS: 0.9 % Sodium Chloride Flush 3 ML SYRINGE IVFLUSH ×2 (09:22→16:03)
[2021-10-14] MEDS: Artificial Tears 15 ML DROPS 1 DROP EYE-BOTH ×3 (09:24→21:46)
[2021-10-14 11:27] VITALS: BP 98/60; PULSE 79; RESP 20; TEMP 37.1; O2SAT 96
--- NOTE | 2021-10-14 12:57 | P.PNIM_ITS ---
Subjective Subjective Date of Service: 10/14/21 Interval History: cc: inability to walk interval history: still cant walk, not answering questions Review of Systems Review of Systems: Yes Unobtainable due to mental condition Physical Exam Vital Signs: Vital Signs: Last Vital Signs Temp 98.7 F 10/14/21 11:27 Pulse 79 10/14/21 11:27 Resp 20 10/14/21 11:27 BP 98/60 10/14/21 11:27 Pulse Ox 96 10/14/21 11:27 O2 Del Method 10/14/21 11:27 BMI result Body Mass Index 14.8 General: Alert, tracking better today, but following commands, answers non sensically with short responses, underweight Resp: CTA bilateral, no accessory muscles used CVS: S1,S2,RRR GI: soft, non tender, non distended Neuro: hyperreflexic, 4+/5 bilateral, minimally verbal Psych: appropriate affect, impaired insight Objective Data Active Medications Artificial Tears (Artificial Tears 15 Ml Drops) 1 drop EYE-BOTH QID [facility] Last Admin: 10/14/21 09:24 Dose: 1 drop Documented By: NIRMALA Ascorbic Acid (Ascorbic Acid 500 Mg Tablet) 500 mg PO DAILY [facility] Last Admin: 10/14/21 09:21 Dose: 500 mg Documented By: NIRMALA Desmopressin Acetate (Desmopressin Acetate 0.2 Mg Tablet) 0.1 mg PO BID [facility] Last Admin: 10/14/21 09:21 Dose: 0.1 mg Documented By: NIRMALA Enoxaparin Sodium (Enoxaparin Sodium 40 Mg/0.4 Ml Syringe) 40 mg SUBCUT Q24H [facility] Last Admin: 10/13/21 13:41 Dose: 40 mg Documented By: LAWANDA Ferrous Sulfate (Ferrous Sulfate 324 Mg Tablet.Dr) 324 mg PO DAILY [facility] Last Admin: 10/14/21 09:21 Dose: 324 mg Documented By: NIRMALA Fluoxetine HCl (Fluoxetine Hcl 20 Mg Capsule) 40 mg PO DAILY [facility] Last Admin: 10/14/21 09:21 Dose: 40 mg Documented By: NIRMALA Levetiracetam (Keppra) 500 mg in 100 mls @ 400 mls/hr IV Q12H [facility] Last Infusion: 10/14/21 09:41 Dose: 0 mls/hr Documented By: NIRMALA Levothyroxine Sodium (Levothyroxine Sodium 25 Mcg Tablet) 25 mcg PO DAILY@0600 [facility] Last Admin: 10/14/21 05:42 Dose: 25 mcg Documented By: MELISSA Non-Formulary Medication (Linaclotide [Linzess]) 290 mcg PO DAILY [facility] Omeprazole (Omeprazole 20 Mg Capsule.Dr) 20 mg PO BID@0630,1630 [facility] Last Admin: 10/14/21 05:45 Dose: 20 mg Documented By: MELISSA Paliperidone (Paliperidone Er 6 Mg Tab.Er.24) 6 mg PO DAILY [facility] Last Admin: 10/14/21 09:21 Dose: 6 mg Documented By: NIRMALA Pharmacy Consult (Consult Rx Perform Med Rec) 1 each MISCELLANE ONCE PRN PRN Reason: Consult order Senna (Sennosides 8.6 Mg Tablet) 17.2 mg PO BEDTIME PRN PRN Reason: constipation Sodium Chloride (0.9 % Sodium Chloride Flush 3 Ml Syringe) 3 ml IVFLUSH QSHIFT [facility] Last Admin: 10/14/21 09:22 Dose: 3 ml Documented By: NIRMALA Labs CBC & Chem 7: 10/12/21 06:17 10/12/21 06:17 Labs: Laboratory Results - last 24 hr 10/10/21 16:01 Clozapine 639 Norclozapine 370 Assessment and Plan (1) Paraparesis: Status: Acute Plan 66M with pmh hypothyroid, GERD, normocytic anemia, schizophrenia, copd, pr esented with inability to ambulate, LUIS ANGEL, hypernatremia, confusion LUIS ANGEL with hypernatremia likely due to dehyrdation resolved metabolic encephalopathy with paraplegia neuro recommended spinal mri - unremarkable CTH unremarkable not improved with improved renal failure and hypernatremia neuro suggested empiric antiepileptics, unclear if any improvement since starting 10/13/21 conitnue keppra 500mg bid follow up neuro FTT severe protein calorie malnutrtion nutrition dysphagia pureed diet schizophrenia clozaril on hold, level WNL hypothyroid synthroid gerd ppi recent covid holding paxlovid for luis angel, no resp symptoms dvt prophylaxis - lovenox full code reason for continued hospitalization: working up paraplegia Quality Stroke Does the patient have a stroke diagnosis?: No VTE Prior VTE?: No VTE Risk Level:: Medical - moderate - high VTE Device Contraindication: Treatment Not Indicated VTE Drug Contraindication: N/A - Med Ordered
[2021-10-14 15:10] VITALS: BP 99/52; PULSE 73; RESP 18; TEMP 36.8; O2SAT 97
[2021-10-14] MEDS: Enoxaparin Sodium 40 MG/0.4 ML SYRINGE SUBCUT (16:03)
[2021-10-14 19:06] VITALS: BP 99/57; PULSE 69; RESP 18; TEMP 36.7; O2SAT 97
[2021-10-14 23:39] VITALS: BP 99/62; PULSE 75; RESP 18; TEMP 37.1; O2SAT 98
[2021-10-15] VITALS (7 sets, daily range): BP systolic 87–101; BP diastolic 50–61; PULSE 69–81; RESP 15–20; TEMP 36.1–37.1; O2SAT 95–99
[2021-10-15] MEDS: 0.9 % Sodium Chloride Flush 3 ML SYRINGE IVFLUSH ×4 (00:39→21:35)
[2021-10-15] MEDS: Levothyroxine Sodium 25 MCG TABLET PO (05:50)
[2021-10-15] MEDS: Omeprazole 20 MG CAPSULE.DR PO ×2 (05:50→16:11)
[2021-10-15 07:12] LABS: Hematocrit 33.3 % (42.0-52.0); Mean Corpuscular Hemoglobin 29.4 pg (27.0-33.0); Mean Platelet Volume 11.1 fL (9.4-12.4); Platelet Count 315 X10*3/uL (160-400); Red Blood Count 3.74 X10*6/uL (4.60-5.80); Red Cell Distribution Width 13.9 % (11.0-16.0); White Blood Count 8.4 X10*3/uL (4.8-10.8)
[2021-10-15 07:36] LABS: Anion Gap 15 (12-20); Blood Urea Nitrogen 19 mg/dL (9-16); Calcium 9.2 mg/dL (8.4-10.2); Carbon Dioxide 25 mmol/L (22-29); Chloride 101 mmol/L (96-108); Creatinine Clr Calc Pharmacy 57.4; Estimated Glomerular Filt Rate > 60; Glucose Fasting 89 mg/dL (60-99); Potassium 4.3 mmol/L (3.3-5.1); Sodium 137 mmol/L (135-145)
[2021-10-15] MEDS: Ascorbic Acid 500 MG TABLET PO (09:18)
[2021-10-15] MEDS: Ferrous Sulfate 324 MG TABLET.DR PO (09:18)
[2021-10-15] MEDS: Desmopressin Acetate 0.2 MG TABLET 0.1 MG PO ×2 (09:18→21:34)
[2021-10-15] MEDS: FLUoxetine HCl 20 MG CAPSULE 40 MG PO (09:18)
[2021-10-15] MEDS: Paliperidone ER 6 MG TAB.ER.24 PO (09:18)
[2021-10-15] MEDS: Artificial Tears 15 ML DROPS 1 DROP EYE-BOTH ×3 (09:20→21:36)
[2021-10-15] MEDS: levETIRAcetam in NaCl (iso-os) 500 MG/100 ML PIGGYBACK 400 MG IV ×2 (09:20→21:35)
[2021-10-15] MEDS: Ampicillin Sodium/Sulbactam Na 1.5 GM in 0.9 % Sodium Chloride 100 ML IV ×3 (09:28→21:35)
--- NOTE | 2021-10-15 11:05 | MHC.CM.PN ---
Addendum entered by Nicky Velez 10/15/21 11:47: Per P.T. STR vs Home. Original Note: Male 66 DX Covid Lives in a halfway. P.T. has re evaluated the patient. The recommendation is: return to home, no therapy indicated. He will transport via BLS.
--- NOTE | 2021-10-15 12:53 | HO.PM.IMPN ---
Subjective Subjective Date of Service: 10/15/21 Interval History: Seen and evaluated this morning Lying in the bed comfortable Able to mention his name but unaware of other surroundings Reported being unable to walk Impaired cognition No reported overnight events Review of Systems Review of Systems: Yes all other systems are reviewed and are negative Physical Exam Vital Signs: Vital Signs: Last Vital Signs Temp 98.4 F 10/15/21 11:23 Pulse 78 10/15/21 11:23 Resp 15 10/15/21 11:23 BP 91/58 L 10/15/21 11:23 Pulse Ox 98 10/15/21 11:23 O2 Del Method 10/15/21 11:23 BMI result Body Mass Index 14.8 Const: Other: Constitutional : Alert, not in distress Neck : Normal inspection, Supple Cardiovascular : RRR, no JVP, no lower extremity edema Respiratory : fair bilateral air entry, no crackles, wheezes or rhonchi Gastrointestinal: soft, lax, Normal bowel sounds, Non tender Skin : Warm, Dry Neurological : Alert & disoriented, unable to lift his legs above the bed, mild spasticity on movement of lower extremities Objective Data Active Medications Artificial Tears (Artificial Tears 15 Ml Drops) 1 drop EYE-BOTH QID [facility] Last Admin: 10/15/21 09:20 Dose: 1 drop Documented By: NIRMALA Ascorbic Acid (Ascorbic Acid 500 Mg Tablet) 500 mg PO DAILY [facility] Last Admin: 10/15/21 09:18 Dose: 500 mg Documented By: NIRMALA Desmopressin Acetate (Desmopressin Acetate 0.2 Mg Tablet) 0.1 mg PO BID [facility] Last Admin: 10/15/21 09:18 Dose: 0.1 mg Documented By: NIRMALA Enoxaparin Sodium (Enoxaparin Sodium 40 Mg/0.4 Ml Syringe) 40 mg SUBCUT Q24H [facility] Last Admin: 10/14/21 16:03 Dose: 40 mg Documented By: NIRMALA Ferrous Sulfate (Ferrous Sulfate 324 Mg Tablet.) 324 mg PO DAILY [facility] Last Admin: 10/15/21 09:18 Dose: 324 mg Documented By: NIRMALA Fluoxetine HCl (Fluoxetine Hcl 20 Mg Capsule) 40 mg PO DAILY [facility] Last Admin: 10/15/21 09:18 Dose: 40 mg Documented By: NIRMALA Levetiracetam (Keppra) 500 mg in 100 mls @ 400 mls/hr IV Q12H [facility] Last Infusion: 10/15/21 09:45 Dose: 0 mls/hr Documented By: NIRMALA Ampicillin Sodium/Sulbactam (Sodium 1.5 gm/ Sodium Chloride) 100 mls @ 200 mls/hr IV Q6H [facility] Last Infusion: 10/15/21 10:27 Dose: 0 mls/hr Documented By: NIRMALA Levothyroxine Sodium (Levothyroxine Sodium 25 Mcg Tablet) 25 mcg PO DAILY@0600 [facility] Last Admin: 10/15/21 05:50 Dose: 25 mcg Documented By: DEL Non-Formulary Medication (Linaclotide [Linzess]) 290 mcg PO DAILY [facility] Omeprazole (Omeprazole 20 Mg Capsule.Dr) 20 mg PO BID@0630,1630 [facility] Last Admin: 10/15/21 05:50 Dose: 20 mg Documented By: DEL Paliperidone (Paliperidone Er 6 Mg Tab.Er.24) 6 mg PO DAILY [facility] Last Admin: 10/15/21 09:18 Dose: 6 mg Documented By: NIRMALA Pharmacy Consult (Consult Rx Perform Med Rec) 1 each MISCELLANE ONCE PRN PRN Reason: Consult order Senna (Sennosides 8.6 Mg Tablet) 17.2 mg PO BEDTIME PRN PRN Reason: constipation Sodium Chloride (0.9 % Sodium Chloride Flush 3 Ml Syringe) 3 ml IVFLUSH QSHIFT [facility] Last Admin: 10/15/21 09:19 Dose: 3 ml Documented By: NIRMALA Labs CBC & Chem 7: 10/15/21 06:24 10/15/21 06:24 Labs: Laboratory Results - last 24 hr 10/15/21 10/15/21 06:24 06:24 MCV 89.0 MCH 29.4 MCHC 33.0 RDW 13.9 Plt Count 315 MPV 11.1 Absolute Nucleated RBC 0.000 Nucleated RBC % (auto) 0.0 Anion Gap 15 Estim Creat Clear Calc 57.4 Estimated GFR > 60 Fasting Glucose 89 Calcium 9.2 Microbiology Microbiology Results: Microbiology 10/10/21 04:43 Blood Culture - Final Blood - Venous No growth after 5 days. 10/10/21 04:43 Blood Culture - Final Blood - Venous No growth after 5 days. Assessment and Plan (1) Paraparesis: Status: Acute (2) Metabolic encephalopathy: Status: Acute Plan 66M with pmh hypothyroid, GERD, normocytic anemia, schizophrenia, copd, presented with inability to ambulate, LUIS ANGEL, hypernatremia, confusion LUIS ANGEL with hypernatremia likely due to dehyrdation resolved metabolic encephalopathy neuro recommended spinal mri - unremarkable CTH unremarkable Mental status improved, unclear if this is his baseline neuro suggested empiric antiepileptics conitnue keppra 500mg bid To check an EEG follow up neuro Lower extremities weakness Reported shuffling gait at baseline a needing assistance at the prison MRI of the spine negative for any acute findings Neurology input appreciated, could be polyradiculopathy or chronic diffuse peripheral neuropathy Aspiration pneumonia RLL infiltrate on CT scan Start empirical Unasyn Monitor respiratory status Hypotension Not secondary to sepsis Seems to be related to decreased oral intake Consider IVF if map falls below 60 FTT severe protein calorie malnutrtion nutrition dysphagia pureed diet Speech input appreciated, honey thick fluids schizophrenia clozaril on hold, level WNL hypothyroid synthroid gerd ppi recent covid holding paxlovid for luis angel, no resp symptoms dvt prophylaxis - lovenox full code reason for continued hospitalization: working up paraplegia pending EEG Quality Stroke Does the patient have a stroke diagnosis?: No VTE Prior VTE?: No VTE Risk Level:: Medical - moderate - high VTE Device Contraindication: Treatment Not Indicated VTE Drug Contraindication: N/A - Med Ordered
--- NOTE | 2021-10-15 14:33 | MHC.SL.SWA ---
Speech Pathologist Impression: Oropharyngeal dysphagia Risk of Aspiration Due to: History of Pneumonia Reduced Cognition Weak Voice Dysphasia Diet Status: Downgrade Liquid Consistency and Strategies for Safe Swallow: Liquid Intake Recommendation: Pudding Thick Liquid Intake Strategies: Liquids by Teaspoon Only Solid Food Consistency: Dietary Recommendations: Pureed (NDD1) Oral Medication Intake: Crushed with Puree Please contact the pharmacy regarding appropriate crushable or liquid drug formulations that are available whenever modified delivery is recommended. Compensatory Strategies and Precautions to be Taken for Safe Swallow: Sitting Upright (90 deg) No Straw Liquids from Spoon Small Bites and Sips Rate of Ingestion Change Oral Check Supervision While Eating and Drinking for Safe Swallow: Total Assistance (1:1) Swallowing Recommended Treatments: Compens. Strategy Educat. Recommendation for Speech: Inpatient Speech Therapy Permit Technician Clinican/Clinical Fellow: Yes: Brooklynn Sanchez M.A. CF-LEARNING AND DEVELOPMENT ASSISTANT Supervisory Statement: I have reviewed and agree with the student/clinical fellow's documentation: Yes Speech Language Pathologist: Nasrin Sevilla M.A., CCC-LEARNING AND DEVELOPMENT ASSISTANT
[2021-10-15] MEDS: Enoxaparin Sodium 40 MG/0.4 ML SYRINGE SUBCUT (15:20)
--- NOTE | 2021-10-15 16:01 | MHC.SL.SWA ---
Addendum entered and electronically signed by Nasrin Sevilla MA, CCC-MAILING MACHINE OPERATOR 10/15/21 16:38: D.S. Original Note: Speech Pathologist Impression: Oropharyngeal Dysphagia Risk of Aspiration Due to: History of Pneumonia Reduced Cognition Weak Voice Dysphasia Diet Status: Downgrade Liquid Consistency and Strategies for Safe Swallow: Liquid Intake Recommendation: Pudding Thick Liquid Intake Strategies: Liquids by Teaspoon Only Solid Food Consistency: Dietary Recommendations: Pureed (NDD1) Additional Modifications to Solid Foods: Oral Medication Intake: Crushed with Puree Please contact the pharmacy regarding appropriate crushable or liquid drug formulations that are available whenever modified delivery is recommended. Compensatory Strategies and Precautions to be Taken for Safe Swallow: Sitting Upright (90 deg) No Straw Liquids from Spoon Small Bites and Sips Rate of Ingestion Change Oral Check Supervision While Eating and Drinking for Safe Swallow: Total Assistance (1:1) Swallowing Recommended Treatments: Compens. Strategy Educat. Recommendation for Speech: Inpatient Speech Therapy Modified Barium Swallow Study - Inpatient Modified Barium Swallow Study - Outpatient Comment: Recommend PUREE (NDD1) solids, PUDDING THICK liquid via TEASPOON (SINGLE CONSISTENCY), and pills CRUSHED in PUREE. Pt requires 1:1 assist with tray setup and feeding, monitor for any signs and symptoms of aspiration. Aspiration precautions apply for this pt. Recommend consult for RD given risk for dehydration with conservative diet. Recommend MBSS if swallow does not improve. Platform Beater Clinican/Clinical Fellow: Yes: Brooklynn Sanhcez M.A. CF-MAILING MACHINE OPERATOR Supervisory Statement: I have reviewed and agree with the student/clinical fellow's documentation: Yes Speech Language Pathologist: Nasrin Sevilla M.A., CCC-MAILING MACHINE OPERATOR
--- NOTE | 2021-10-15 19:00 | HO.PSYCHPN ---
Subjective Subjective Date of Service: 10/15/21 Reason For Visit: LUIS ANGEL hypernatremia gait ataxia Interim History: I re-evaluated pt this evening and pt was asleep, this was deemed more therapeutic than to wake him. Reviewed clozapine level, this is within normal range. Unable to obtain collateral contact info from OP psychiatrist, as I did not get a call back despite leaving . Pt's RN reports the pt had a conversation with his sister earlier and he?recognized her, unknown if he was verbally responding despite one word answers. Also PT saw pt and got him to march in place. Per RN, he is still responding in one word answers. Sometimes pt does not respond. He appears to be progressing back to baseline. Mental Status Exam Mental Status Exam Narrative: Pt is asleep. Diagnostics Vital Signs (24Hr): Vital Signs - 24 hr 10/14/21 19:06 10/14/21 23:39 10/15/21 04:00 Temperature 98.0 F 98.7 F 98.7 F Pulse Rate 69 75 69 Respiratory Rate 18 18 20 Blood Pressure 99/57 L 99/62 90/53 L Pulse Oximetry 97 98 97 Oxygen Delivery Method Room Air Room Air Room Air 10/15/21 07:54 10/15/21 10:54 10/15/21 11:23 Temperature 98.2 F 98.4 F Pulse Rate 78 78 78 Respiratory Rate 18 15 Blood Pressure 87/61 L 87/61 L 91/58 L Pulse Oximetry 99 99 98 Oxygen Delivery Method Room Air Room Air 10/15/21 15:01 Temperature 97.0 F Pulse Rate 80 Respiratory Rate 20 Blood Pressure 101/56 L Pulse Oximetry 95 Oxygen Delivery Method Room Air BMI result Body Mass Index 14.8 Labs Results: 10/15/21 06:24 10/16/21 07:19 Labs: Laboratory Results - last 48 hr 10/10/21 10/15/21 10/15/21 16:01 06:24 06:24 WBC 8.4 RBC 3.74 L Hgb 11.0 L Hct 33.3 L MCV 89.0 MCH 29.4 MCHC 33.0 RDW 13.9 Plt Count 315 MPV 11.1 Absolute Nucleated RBC 0.000 Nucleated RBC % (auto) 0.0 Sodium 137 Potassium 4.3 Chloride 101 Carbon Dioxide 25 Anion Gap 15 BUN 19 H D Creatinine 0.80 Estim Creat Clear Calc 57.4 Estimated GFR > 60 Fasting Glucose 89 Calcium 9.2 Clozapine 639 Norclozapine 370 Imaging Radiology Impressions: ITS Impressions Chest X-Ray 10/10/21 02:33 IMPRESSION: Linear right basilar atelectasis. Head CT 10/10/21 05:05 IMPRESSION: No acute intracranial pathology. KUB X-Ray 10/11/21 12:06 IMPRESSION: 1. Nonobstructive bowel gas pattern. Moderate gas and stool in the colon similar to the previous CT scan. 2. One metallic clip overlying the right lower quadrant correlates in the previous CT scan. The other previously seen clip is not visualized. Cervical Spine MRI 10/11/21 15:17 IMPRESSION: - This is a very limited study. The patient can only be scanned for 15 minutes due to a MRI conditional endo-clip within the right colon. The obtained series are very motion degraded and there is nondiagnostic assessment for signal abnormality within the cervicothoracic spinal cord. This study may need to be performed with anesthesia or sedation as clinically indicated. - Within the cervical spine, spondylitic changes result in moderate left C3-C4, moderate left and moderate to severe right C4-C5, moderate bilateral C5-C6 and severe right and mild left C6-C7 foraminal stenosis. There is no severe central canal stenosis within the cervical spine. No cord compression. - Within the thoracic spine, there are chronic compression fractures at T1-T6. No acute fractures. No significant thoracic disc herniations. There is no severe central canal stenosis and there is no severe foraminal stenosis within the thoracic spine. - Partially imaged airspace opacity within the right lung kidney correlated for clinical signs of pneumonia and can be followed with chest x-ray. Thoracic Spine MRI 10/11/21 15:17 IMPRESSION: - This is a very limited study. The patient can only be scanned for 15 minutes due to a MRI conditional endo-clip within the right colon. The obtained series are very motion degraded and there is nondiagnostic assessment for signal abnormality within the cervicothoracic spinal cord. This study may need to be performed with anesthesia or sedation as clinically indicated. - Within the cervical spine, spondylitic changes result in moderate left C3-C4, moderate left and moderate to severe right C4-C5, moderate bilateral C5-C6 and severe right and mild left C6-C7 foraminal stenosis. There is no severe central canal stenosis within the cervical spine. No cord compression. - Within the thoracic spine, there are chronic compression fractures at T1-T6. No acute fractures. No significant thoracic disc herniations. There is no severe central canal stenosis and there is no severe foraminal stenosis within the thoracic spine. - Partially imaged airspace opacity within the right lung kidney correlated for clinical signs of pneumonia and can be followed with chest x-ray. Medications Medications Current Medications Artificial Tears (Artificial Tears 15 Ml Drops) 1 drop EYE-BOTH QID [facility] Last Admin: 10/15/21 16:12 Dose: 1 drop Ascorbic Acid (Ascorbic Acid 500 Mg Tablet) 500 mg PO DAILY [facility] Last Admin: 10/15/21 09:18 Dose: 500 mg Desmopressin Acetate (Desmopressin Acetate 0.2 Mg Tablet) 0.1 mg PO BID [facility] Last Admin: 10/15/21 09:18 Dose: 0.1 mg Enoxaparin Sodium (Enoxaparin Sodium 40 Mg/0.4 Ml Syringe) 40 mg SUBCUT Q24H [facility] Last Admin: 10/15/21 15:20 Dose: 40 mg Ferrous Sulfate (Ferrous Sulfate 324 Mg Tablet.) 324 mg PO DAILY [facility] Last Admin: 10/15/21 09:18 Dose: 324 mg Fluoxetine HCl (Fluoxetine Hcl 20 Mg Capsule) 40 mg PO DAILY [facility] Last Admin: 10/15/21 09:18 Dose: 40 mg Levetiracetam (Keppra) 500 mg in 100 mls @ 400 mls/hr IV Q12H [facility] Last Infusion: 10/15/21 09:45 Dose: Infused Ampicillin Sodium/Sulbactam (Sodium 1.5 gm/ Sodium Chloride) 100 mls @ 200 mls/hr IV Q6H [facility] Last Infusion: 10/15/21 16:13 Dose: Infused Levothyroxine Sodium (Levothyroxine Sodium 25 Mcg Tablet) 25 mcg PO DAILY@0600 [facility] Last Admin: 10/15/21 05:50 Dose: 25 mcg Non-Formulary Medication (Linaclotide [Linzess]) 290 mcg PO DAILY [facility] Omeprazole (Omeprazole 20 Mg Capsule.) 20 mg PO BID@0630,1630 [facility] Last Admin: 10/15/21 16:11 Dose: 20 mg Paliperidone (Paliperidone Er 6 Mg Tab.Er.24) 6 mg PO DAILY [facility] Last Admin: 10/15/21 09:18 Dose: 6 mg Pharmacy Consult (Consult Rx Perform Med Rec) 1 each MISCELLANE ONCE PRN PRN Reason: Consult order Senna (Sennosides 8.6 Mg Tablet) 17.2 mg PO BEDTIME PRN PRN Reason: constipation Sodium Chloride (0.9 % Sodium Chloride Flush 3 Ml Syringe) 3 ml IVFLUSH QSHIFT [facility] Last Admin: 10/15/21 15:20 Dose: 3 ml Allergies Allergies Allergy/AdvReac Type Severity Reaction Status Date / Time clindamycin Allergy Unknown Unknown Verified 10/10/21 02:22 Sulfa (Sulfonamide Allergy Unknown UNKNOWN Verified 10/10/21 02:22 Antibiotics) [SULFA(SULFONAMIDE ANTIBIOTICS)] sulfamethoxazole Allergy Unknown Unknown Verified 10/10/21 02:22 [From Bactrim] trimethoprim [From Bactrim] Allergy Unknown Unknown Verified 10/10/21 02:22 Assessment & Plan Assessment & Plan (1) Paraparesis: Status: Acute Code(s): G82.20 - Paraplegia, unspecified (2) Metabolic encephalopathy: Status: Acute Code(s): G93.41 - Metabolic encephalopathy Plan Dagoberto is a 66 y.o. Male who carries a dx of schizophrenia. Hx of failure to thrive. He presented to [facility] from [facility] on 10/10/21 due altered mental status, metabolic encephalopathy. Positive for?COVID 19 and UTI since 10/04, treated with macrobid x 1 week. Also given paxlovid, which is currenlty being held due to interaction with clozapine and LUIS ANGEL. Head CT negative. Pt presenting with new onset paraplegia, not ambulating. Plan: Will continue to hold clozapine to rule out clozapine delirium, level pending. Psych will continue to follow and evaluate need for inpatient psych admission upon medical clearance. Will obtain collateral contact from OP psychiatrist, Suman Salas, as pt?s psychiatric baseline is unknown. 10/15: reviewed pt's clozapine level, 639, norclozapine 370, which are wnl. Pt has not been re-started on clozapine, unclear if he needs it, on paliperidone. Per sister, pt has been treated for schizophrenia since adolescence. Unable to obtain collateral info from OP psychiatrist on pt's baseline. Pt is progressing back to baseline, will hold off on re-starting clozapine as there are no behavioral or psychiatric concerns per pt's team. Will continue to monitor and may re-consult psych as needed. Thank you for this consultation. If you have any questions or concerns, please do not hesitate to contact psychiatry service. I spent minutes with the patient and/or on the patient floor today, greater than?50% of which was spent counseling/coordinating care. Patient educated on: other Reason for contiued inpatient stay Substantial Risk for: rapid decompensation and med/psych decompensation
--- NOTE | 2021-10-15 20:01 | MHC.CLN ---
F/U PATIENT SEEN BY SEMI CONDUCTOR ASSEMBLER TODAY WITH DIET CONTINUES PUREE, LIQUIDS CHANGED TO PUDDING. REQUIRES 1:1 ASSIST WITH MEALS. DISCONTINUE ENSURE SUPPLEMENT DUE TO PUDDING THICK CONSISTENCY. CHANGE MAGIC CUP FROM BID TO TID. PROVIDES 870 KCALS AND 27 G PROTEIN. PRODUCT MELTS TO PUDDING THICK. WILL OFFER APPLESAUCE EACH MEAL FOR ADDITIONAL MOISTURE/HYDRATION. REVIEW OF INTAKE APPEARS GOOD. FOLLOW FOR WEIGHT AND INTAKE.
--- NOTE | 2021-10-16 | EEG_ITS ---
This is a 16-channel EEG with an EKG lead. The patient is reported confused during the tracing. Background EEG rhythm is 7 to 8 hertz, 5 to 30 microvolt posteriorly, lower amplitude fast anteriorly. Some lead and muscle artifacts are noted. Photic stimulation and hyperventilation were not performed. Cardiac lead does not reveal any significant abnormality. No sharp wave spikes or paroxysmal tendency or asymmetry noted. IMPRESSION: Generalized slowing with no evidence of seizure disorder. MD IBETH Ross/AVI / [id number]
[2021-10-16 04:00] VITALS: BP 100/59; PULSE 75; RESP 18; TEMP 36.6; O2SAT 98
[2021-10-16] MEDS: Ampicillin Sodium/Sulbactam Na 1.5 GM in 0.9 % Sodium Chloride 100 ML IV ×4 (05:33→21:07)
[2021-10-16] MEDS: Levothyroxine Sodium 25 MCG TABLET PO (05:35)
[2021-10-16] MEDS: Omeprazole 20 MG CAPSULE.DR PO ×2 (05:35→16:15)
[2021-10-16 07:34] VITALS: BP 113/63; PULSE 63; RESP 16; TEMP 37.2; O2SAT 98
[2021-10-16 07:49] LABS: Anion Gap 12 (12-20); Blood Urea Nitrogen 18 mg/dL (9-16); Calcium 9.3 mg/dL (8.4-10.2); Carbon Dioxide 26 mmol/L (22-29); Chloride 103 mmol/L (96-108); Creatinine Clr Calc Pharmacy 61.3; Estimated Glomerular Filt Rate > 60; Glucose Random 101 mg/dL (60-115); Potassium 4.2 mmol/L (3.3-5.1); Sodium 137 mmol/L (135-145)
[2021-10-16] MEDS: levETIRAcetam in NaCl (iso-os) 500 MG/100 ML PIGGYBACK 400 MG IV ×2 (09:57→22:10)
[2021-10-16] MEDS: FLUoxetine HCl 20 MG CAPSULE 40 MG PO (10:07)
[2021-10-16] MEDS: Desmopressin Acetate 0.2 MG TABLET 0.1 MG PO ×2 (10:07→22:21)
[2021-10-16] MEDS: Ascorbic Acid 500 MG TABLET PO (10:08)
[2021-10-16] MEDS: Ferrous Sulfate 324 MG TABLET.DR PO (10:09)
[2021-10-16] MEDS: Artificial Tears 15 ML DROPS 1 DROP EYE-BOTH ×4 (10:15→21:11)
[2021-10-16] MEDS: 0.9 % Sodium Chloride Flush 3 ML SYRINGE IVFLUSH ×3 (10:19→21:10)
[2021-10-16 11:25] VITALS: BP 98/53; PULSE 74; RESP 17; TEMP 36.7; O2SAT 98
--- NOTE | 2021-10-16 11:39 | MHC.SL.SWA ---
Speech Pathologist Impression: Risk of Aspiration Due to: History of Pneumonia Reduced Cognition Weak Voice Dysphasia Diet Status: Recommend UPGRADE liquids to NECTAR THICK, continue PUREE consistency with PILLS CRUSHED in PUREE. Aspiration precautions apply, Pt will continue to need 1:1 feed, liquids by TSP (NO STRAWS), close monitor for aspiration signs. WEBFED OFFSET PRESS OPERATOR notified MOISES MCGOWAN of recommended change by secure text, updated diet in expanse. Liquid Consistency and Strategies for Safe Swallow: Liquid Intake Recommendation: [place] Thick Liquid Intake Strategies: No Straws Liquids by Teaspoon Only Solid Food Consistency: Dietary Recommendations: Pureed (NDD1) Additional Modifications to Solid Foods: 1:1 Feeding, liquids by TSP, slower rate of ingestion: assure patient has swallowed before presenting more food or liquid, blend gravies/sauces into puree for one consistency. Do not attempt if patient is lethargic, not engaged in meal. Patient may benefit from smaller, more frequent meals given decreased appetite. Oral Medication Intake: Crushed with Puree Please contact the pharmacy regarding appropriate crushable or liquid drug formulations that are available whenever modified delivery is recommended. Compensatory Strategies and Precautions to be Taken for Safe Swallow: Sitting Upright (90 deg) No Straw Liquids from Spoon Small Bites and Sips Alternate Liquids/Solids Rate of Ingestion Change Supervision While Eating and Drinking for Safe Swallow: Total Assistance (1:1) Foods to Avoid: Sticky, congealed textures. Swallowing Recommended Treatments: Compens. Strategy Educat. Recommendation for Speech: Inpatient Speech Therapy Comment: Patient was seen for repeat assessment of swallow, toleration of diet this a.m. Pt was awake but lapsed into somnolence periodically, but easily re-awakened. Patient was able to answer where are you with strategy of reading location from the board in room, but unable to state where he lives. Patient reported that he has a poor appetite and hasn't been eating much. Patient agreed to try some food and liquid, but took only small amounts of each. On puree, patient presented with mild delay or oral phase, and moderate delay before initiating swallow, with laryngeal elevation wnl, no clinical signs of aspiration. On Honey Thick liquid by tsp, Patient had mild delay of oral phase, moderate delay before initiating swallow, laryngeal elevation WFL, no clinical signs of aspiration, no vocal wetness noted. On [place] Thick liquid by tsp, Patient presented with similar pattern of mild delay of oral phase, mild to moderate delay initiating swallow, no clinical signs of aspiration. Patient declined further trials. Recommend UPGRADE liquids to NECTAR THICK, continue PUREE consistency with PILLS CRUSHED in PUREE. Aspiration precautions apply, Pt will continue to need 1:1 feed, liquids by TSP (NO STRAWS), close monitor for aspiration signs. Frequency/Duration: Date Range for Service Req: Timeline to reassess: [place] Clinican/Clinical Fellow: No Supervisory Statement: I have reviewed and agree with the student/clinical fellow's documentation: N/A Speech Language Pathologist: Tonya Koenig M.A., CCC-WEBFED OFFSET PRESS OPERATOR
--- NOTE | 2021-10-16 12:09 | P.DS_ITS ---
DS: Providers Provider Date of Service: 10/17/21 Date of admission: 10/10/21 14:16 Primary care physician: Briana Reeves MD Consults: 10/10/21 14:40 Consult to Neurology Routine Consulting Provider: [facility] Reason for consultation: hypernatremia, gait ataxia, right foot drop Consult to Urology Routine Consulting Provider: Farooq Cárdenas Reason for consultation: gross blood urethral meatus Has provider been notified: No 10/10/21 15:25 Consult to Psychiatry Routine Consulting Provider: [facility] Reason for consultation: Schizophrenia- concern re clozapine levels interaction with paxlovid DS: Diagnosis Discharge Diagnosis (1) Paraparesis: Status: Acute (2) Metabolic encephalopathy: Status: Acute (3) LUIS NAGEL (acute kidney injury): Status: Acute (4) Ataxic gait: Status: Acute (5) Adult failure to thrive: Status: Acute (6) COVID-19: Status: Acute (7) Hypernatremia: Status: Acute (8) Failure to thrive in adult: Status: Acute DS: Summary Hospital Course Hospital Course: Admission note HPI 66 year old male with history significant for hypothyroidism, normocytic anemia, GERD, schizophrenia, chronic constipation, and failure to thrive presented to the ED this morning for evaluation of altered mental status and fall. Discussed patient with [employer], residential work at the [facility] care home where patient lives. Patient has been in isolation with COVID 19 since diagnosis on 10/04 when he tested positive at [facility] and also tested positive for UTI, treated with macrobid for 1 week. He was started on paxlovid on 10/07 for his symptoms and continued all home medications. Last night she reports patient had confusion increased from baseline asking for morning meds at 1230 am and insisting that the clock was wrong. He went to sit down and slid off the chair. He was also noted to having forgotten how to walk since last night. Initially cleared to go home from ED, but gait ataxia noted in conjunction with mild LUIS ANGEL and hypernatremia with creat of 1.57 and BUN 28 with sodium of 148. Received 2 L NS with improvement in creat to 1.04. Sodium with slight increase to 149. CT negative for abute intracranial abnormality. Urine with 3+ blood on UA with gross blood noted at urethral meatus. No apparent injury secondary to fall. Decrease in H/H to 11.5/36.1% from 13.0/39.0% from 6 days ago. He has not complaints. Hospital course The patient was admitted to the hospital for evaluation of altered mentation, increase lower extremities weakness. Found to have acute kidney injury and hyponatremia at time of presentation which was treated with IV fluid with good response as sodium and creatinine level improved back to normal. Mental status improved during the hospital stay as a brain images of CT and MRI of the head were negative for any acute findings. Evaluated by Neurology team who recommended starting Keppra 500 mg twice daily for possible underlying seizure activity. Evaluated by psychiatry team as clozapine level was therapeutic who recommended continue his home dose. Evaluation of lower extremities weakness was done with thoracic and lumbar spine MRIs which did not show any acute findings to suggest compression. Reported to have shuffling gait at baseline. Neurology recommended physical therapy as his symptoms could be secondary to polyradiculopathy or chronic diffuse peripheral neuropathy. Noted to have right lower lobe infiltrate on CT scan. Treated with IV Unasyn. To continue on Augmentin at time of discharge to finish 5 days of antibiotics. The patient tested positive for COVID-19 infection with no obvious respiratory complaint. Did not require any active treatment or oxygen supplement. continue Augmentin for 3 more days Start Keppra 500 mg twice Daily To follow up with never been Neurology as outpatient as needed Time Spent with Patient Time attestation: Total time spent providing and/or coordinating discharge services: Discharge coordination time: Greater than 30 minutes Quality: Safe Use of Opioids Does Pt have an Active Cancer Diagnosis on the Problem List?: No Quality: Stroke Does the patient have a stroke diagnosis?: No Physical Exam Vital Signs: Vital Signs: Last Vital Signs Temp 98.1 F 10/16/21 11:25 Pulse 74 10/16/21 11:25 Resp 17 10/16/21 11:25 BP 98/53 L 10/16/21 11:25 Pulse Ox 98 10/16/21 11:25 O2 Del Method 10/16/21 11:25 BMI result Body Mass Index 14.8 Const: Other: Constitutional : Alert, not in distress Neck : Normal inspection, Supple Cardiovascular : RRR, no JVP, no lower extremity edema Respiratory : fair bilateral air entry, no crackles, wheezes or rhonchi Gastrointestinal: soft, lax, Normal bowel sounds, Non tender Skin : Warm, Dry Neurological : Alert & disoriented, unable to lift his legs above the bed, mild spasticity on movement of lower extremities DS: Data Data Completed and Pending Labs on day of discharge: Laboratory Results - last 24 hr 10/16/21 07:19 Sodium 137 Potassium 4.2 Chloride 103 Carbon Dioxide 26 Anion Gap 12 BUN 18 H Creatinine 0.75 Estim Creat Clear Calc 61.3 Estimated GFR > 60 Random Glucose [address] scan - head: Radiologist's impression: ITS Impressions Chest X-Ray 10/10/21 02:33 IMPRESSION: Linear right basilar atelectasis. Head CT 10/10/21 05:05 IMPRESSION: No acute intracranial pathology. KUB X-Ray 10/11/21 12:06 IMPRESSION: 1. Nonobstructive bowel gas pattern. Moderate gas and stool in the colon similar to the previous CT scan. 2. One metallic clip overlying the right lower quadrant correlates in the previous CT scan. The other previously seen clip is not visualized. Cervical Spine MRI 10/11/21 15:17 IMPRESSION: - This is a very limited study. The patient can only be scanned for 15 minutes due to a MRI conditional endo-clip within the right colon. The obtained series are very motion degraded and there is nondiagnostic assessment for signal abnormality within the cervicothoracic spinal cord. This study may need to be performed with anesthesia or sedation as clinically indicated. - Within the cervical spine, spondylitic changes result in moderate left C3-C4, moderate left and moderate to severe right C4-C5, moderate bilateral C5-C6 and severe right and mild left C6-C7 foraminal stenosis. There is no severe central canal stenosis within the cervical spine. No cord compression. - Within the thoracic spine, there are chronic compression fractures at T1-T6. No acute fractures. No significant thoracic disc herniations. There is no severe central canal stenosis and there is no severe foraminal stenosis within the thoracic spine. - Partially imaged airspace opacity within the right lung kidney correlated for clinical signs of pneumonia and can be followed with chest x-ray. Thoracic Spine MRI 10/11/21 15:17 IMPRESSION: - This is a very limited study. The patient can only be scanned for 15 minutes due to a MRI conditional endo-clip within the right colon. The obtained series are very motion degraded and there is nondiagnostic assessment for signal abnormality within the cervicothoracic spinal cord. This study may need to be performed with anesthesia or sedation as clinically indicated. - Within the cervical spine, spondylitic changes result in moderate left C3-C4, moderate left and moderate to severe right C4-C5, moderate bilateral C5-C6 and severe right and mild left C6-C7 foraminal stenosis. There is no severe central canal stenosis within the cervical spine. No cord compression. - Within the thoracic spine, there are chronic compression fractures at T1-T6. No acute fractures. No significant thoracic disc herniations. There is no severe central canal stenosis and there is no severe foraminal stenosis within the thoracic spine. - Partially imaged airspace opacity within the right lung kidney correlated for clinical signs of pneumonia and can be followed with chest x-ray. Discharge Plan Discharge Patient Disposition: Home Health Service Discharge Diagnosis: Weakness in lower extremities Altered mentation Referrals: Leandro,Briana Umanzor MD [Primary Care Provider] - 1 Week Discharge Medications: New amoxicillin-pot clavulanate 500-125 mg tablet 1 tab PO Q12H Qty: 7 0RF levetiracetam 500 mg tablet 500 mg PO BID Qty: 60 0RF Continued (DME) ENSURE See Rx Instructions .Route .MEDSUPPLY Qty: 90 11RF Rx Instructions: As directed levothyroxine 25 mcg tablet 25 mcg PO DAILY 90 Days Qty: 90 2RF desmopressin 0.1 mg tablet 0.1 mg PO BID 90 Days Qty: 180 1RF fluoxetine 20 mg capsule 40 mg PO DAILY lorazepam 0.5 mg tablet 0.5 mg PO BEDTIME Linzess 290 mcg capsule 290 mcg PO DAILY triamcinolone acetonide 0.1 % Cream 1 appl TOPICAL BID ascorbic acid (vitamin C) [Vitamin C] 500 mg Tablet 500 mg PO DAILY paliperidone 6 mg Tablet Extended Release 24hr 6 mg PO DAILY ferrous sulfate 324 mg (65 mg iron) Tablet,Delayed Release (Dr/Ec) 324 mg PO DAILY (DME) pull ups small See Rx Instructions .Route .MEDSUPPLY Qty: 100 11RF Rx Instructions: As directed clozapine 100 mg tablet 200 mg PO BEDTIME clozapine 25 mg tablet 50 mg PO BEDTIME polyvinyl alcohol [Artificial Tears (polyvin alc)] 1.4 % drops 1 drp ophthalmic (eye) QID Rx Instructions: 1 drop in both eyes omeprazole 20 mg capsule,delayed release(DR/EC) 20 mg PO BID 30 Days Qty: 60 6RF senna 8.6 mg capsule 17.2 mg PO BEDTIME PRN (Reason: constipation) 30 Days Qty: 60 6RF Discontinued Paxlovid (EUA) 150-100 mg tablets,dose pack 2 tab PO BID Discharge Orders: Discharge Order (Routine); Ordered 10/17/21 Ordered By: Kady Gómez Diet: NDD1 w Honey thick fluids Activity on Discharge: As tolerated Stand Alone Forms: Patient Portal Discharge page Care Plan Goals: Read below Health Concerns: Read below Plan of Treatment: Read below Assessment: Admitted for altered mentation and lower extremities weakness. Evaluated by brain and spine images with no acute findings noted. Evaluated by Neurology who recommended seizure medication for treatment of possible underlying seizure activity and physical therapy at time of discharge. Mental status improved close to baseline as your kidney function improved back to normal. Evaluated by psychiatry team who recommended to continue your current dose of home medications. Noted to have an evidence of pneumonia that was treated with IV antibiotics. continue Augmentin for 3 more days Start Keppra 500 mg twice Daily Patient Instructions: Failure to Thrive in Older Adults (ED), COVID-19 (Coronavirus Disease 2019) (ED)
--- NOTE | 2021-10-16 12:25 | MHC.CM.PN ---
Addendum entered by Beti Mccartney 10/17/21 07:28: Unable to reach intermediate for discharge and transportation. Referral made for VNA and PT. [facility]isted is able to transport @ d/c. Original Note: Per MD pt has been cleared by Neuro and can D/C today. Call out to Gilma @ , awaiting return call.
--- NOTE | 2021-10-16 14:31 | HO.PM.IMPN ---
Subjective Subjective Date of Service: 10/16/21 Interval History: Seen and evaluated this morning Lying in the bed comfortable Able to mention his name but unaware of other surroundings Impaired cognition No reported overnight events Review of Systems Review of Systems: Yes Unobtainable due to mental condition Physical Exam Vital Signs: Vital Signs: Last Vital Signs Temp 98.1 F 10/16/21 11:25 Pulse 74 10/16/21 11:25 Resp 17 10/16/21 11:25 BP 98/53 L 10/16/21 11:25 Pulse Ox 98 10/16/21 11:25 O2 Del Method 10/16/21 11:25 BMI result Body Mass Index 14.8 Const: Other: Constitutional : Alert, not in distress Neck : Normal inspection, Supple Cardiovascular : RRR, no JVP, no lower extremity edema Respiratory : fair bilateral air entry, no crackles, wheezes or rhonchi Gastrointestinal: soft, lax, Normal bowel sounds, Non tender Skin : Warm, Dry Neurological : Alert & disoriented, unable to lift his legs above the bed, mild spasticity on movement of lower extremities Objective Data Active Medications Artificial Tears (Artificial Tears 15 Ml Drops) 1 drop EYE-BOTH QID [facility] Last Admin: 10/16/21 13:56 Dose: 1 drop Documented By: ADA Ascorbic Acid (Ascorbic Acid 500 Mg Tablet) 500 mg PO DAILY [facility] Last Admin: 10/16/21 10:08 Dose: 500 mg Documented By: ADA Desmopressin Acetate (Desmopressin Acetate 0.2 Mg Tablet) 0.1 mg PO BID [facility] Last Admin: 10/16/21 10:07 Dose: 0.1 mg Documented By: ADA Enoxaparin Sodium (Enoxaparin Sodium 40 Mg/0.4 Ml Syringe) 40 mg SUBCUT Q24H [facility] Last Admin: 10/15/21 15:20 Dose: 40 mg Documented By: NIRMALA Ferrous Sulfate (Ferrous Sulfate 324 Mg Tablet.) 324 mg PO DAILY [facility] Last Admin: 10/16/21 10:09 Dose: 324 mg Documented By: ADA Fluoxetine HCl (Fluoxetine Hcl 20 Mg Capsule) 40 mg PO DAILY [facility] Last Admin: 10/16/21 10:07 Dose: 40 mg Documented By: ADA Levetiracetam (Keppra) 500 mg in 100 mls @ 400 mls/hr IV Q12H [facility] Last Infusion: 10/16/21 10:25 Dose: 0 mls/hr Documented By: ADA Ampicillin Sodium/Sulbactam (Sodium 1.5 gm/ Sodium Chloride) 100 mls @ 200 mls/hr IV Q6H [facility] Last Infusion: 10/16/21 12:20 Dose: 0 mls/hr Documented By: ADA Levothyroxine Sodium (Levothyroxine Sodium 25 Mcg Tablet) 25 mcg PO DAILY@0600 [facility] Last Admin: 10/16/21 05:35 Dose: 25 mcg Documented By: TINY Non-Formulary Medication (Linaclotide [Linzess]) 290 mcg PO DAILY [facility] Omeprazole (Omeprazole 20 Mg Capsule.) 20 mg PO BID@0630,1630 [facility] Last Admin: 10/16/21 05:35 Dose: 20 mg Documented By: TINY Paliperidone (Paliperidone Er 6 Mg Tab.Er.24) 6 mg PO DAILY [facility] Last Admin: 10/16/21 10:07 Dose: 6 mg Documented By: ADA Pharmacy Consult (Consult Rx Perform Med Rec) 1 each MISCELLANE ONCE PRN PRN Reason: Consult order Senna (Sennosides 8.6 Mg Tablet) 17.2 mg PO BEDTIME PRN PRN Reason: constipation Sodium Chloride (0.9 % Sodium Chloride Flush 3 Ml Syringe) 3 ml IVFLUSH QSHIFT [facility] Last Admin: 10/16/21 10:19 Dose: 3 ml Documented By: ADA Labs CBC & Chem 7: 10/15/21 06:24 10/16/21 07:19 Labs: Laboratory Results - last 24 hr 10/16/21 07:19 Anion Gap 12 Estim Creat Clear Calc 61.3 Estimated GFR > 60 Random Glucose 101 Calcium 9.3 Assessment and Plan (1) LUIS ANGEL (acute kidney injury): Status: Acute (2) Metabolic encephalopathy: Status: Acute (3) Ataxic gait: Status: Acute (4) Hypernatremia: Status: Acute (5) Pneumonia: Status: Acute Plan 66M with pmh hypothyroid, GERD, normocytic anemia, schizophrenia, copd, presented with inability to ambulate, LUIS ANGEL, hypernatremia, confusion LUIS ANGEL with hypernatremia likely due to dehyrdation resolved metabolic encephalopathy Seems to be improving back to his baseline Negative head CT for any acute findings neuro suggested empiric antiepileptics conitnue keppra 500mg bid follow up neuro Lower extremities weakness Reported shuffling gait at baseline a needing assistance at the fdc MRI of the thoracic and lumbar spine negative for any acute findings Neurology input appreciated, could be polyradiculopathy or chronic diffuse peripheral neuropathy Aspiration pneumonia RLL infiltrate on CT scan Continue empirical Unasyn Monitor respiratory status Hypotension Not secondary to sepsis Seems to be related to decreased oral intake Consider IVF if map falls below 60 FTT severe protein calorie malnutrtion nutrition dysphagia pureed diet Speech input appreciated, honey thick fluids schizophrenia clozaril on hold, level WNL hypothyroid synthroid gerd ppi recent covid holding paxlovid for luis angel, no resp symptoms dvt prophylaxis - lovenox full code reason for continued hospitalization: working up paraplegia pending EEG Quality Stroke Does the patient have a stroke diagnosis?: No VTE Prior VTE?: No VTE Risk Level:: Medical - moderate - high VTE Device Contraindication: Treatment Not Indicated VTE Drug Contraindication: N/A - Med Ordered
[2021-10-16] MEDS: Enoxaparin Sodium 40 MG/0.4 ML SYRINGE SUBCUT (15:40)
[2021-10-16 16:00] VITALS: BP 102/60; PULSE 72; RESP 18; TEMP 36.4; O2SAT 97
[2021-10-16 20:00] VITALS: BP 99/56; PULSE 68; RESP 17; TEMP 36.5; O2SAT 97
[2021-10-16 23:18] VITALS: BP 104/60; PULSE 78; RESP 14; TEMP 37; O2SAT 98
[2021-10-17 03:13] VITALS: BP 100/59; PULSE 67; RESP 14; TEMP 36.8; O2SAT 98
[2021-10-17] MEDS: Ampicillin Sodium/Sulbactam Na 1.5 GM in 0.9 % Sodium Chloride 100 ML IV (05:20)
[2021-10-17] MEDS: Levothyroxine Sodium 25 MCG TABLET PO (05:22)
[2021-10-17] MEDS: Omeprazole 20 MG CAPSULE.DR PO (05:22)
[2021-10-17] MEDS: 0.9 % Sodium Chloride Flush 3 ML SYRINGE IVFLUSH (05:23)
[2021-10-17 07:49] VITALS: BP 110/58; PULSE 71; RESP 12; TEMP 37.1; O2SAT 97
[2021-10-17 08:08] VITALS: BP 110/58; PULSE 71; O2SAT 97
[2021-10-17] MEDS: Ascorbic Acid 500 MG TABLET PO (09:13)
[2021-10-17 09:57] LABS: COVID-19 Test Negative (Negative)
--- NOTE | 2021-10-17 11:35 | MHC.CM.PN ---
IMM 10/17/21 Male 66 DX Covid+ is discharged today. He will return to his via staff transportation. Patient scheduled for 11am pecan picker. Picked up as planned.
== END 2021-10-17 11:21 | disposition home health service (06) | DRG 682 ==
LOC: HO.ED 11:38 → HO.EDOVER 14:39 → HO.IMC 10-12 07:54
PROVIDERS: Internal Medicine; Admitting Provider Physician Assistant; Emergency Provider Student in an Organized Health Care Education/Training Program; PCP Internal Medicine; Visit Provider Student in an Organized Health Care Education/Training Program
DX: N17.9 Acute kidney failure, unspecified (principal); E43 Unspecified severe protein-calorie malnutrition; G93.41 Metabolic encephalopathy; J69.0 Pneumonitis due to inhalation of food and vomit; U07.1 COVID-19; E87.0 Hyperosmolality and hypernatremia; G82.20 Paraplegia, unspecified; Z68.1 Body mass index [BMI] 19.9 or less, adult; J44.9 Chronic obstructive pulmonary disease, unspecified; E86.0 Dehydration; F20.9 Schizophrenia, unspecified; R13.10 Dysphagia, unspecified; K59.09 Other constipation; K21.9 Gastro-esophageal reflux disease without esophagitis; E03.9 Hypothyroidism, unspecified; I95.9 Hypotension, unspecified; R62.7 Adult failure to thrive; Z86.16 Personal history of COVID-19; Z87.01 Personal history of pneumonia (recurrent); Z88.2 Allergy status to sulfonamides; Z79.890 Hormone replacement therapy; Z79.899 Other long term (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
CPT/HCPCS: 36415; 70450; 71045; 72141; 72146; 74018; 80048; 80053; 80159; 81001; 82607; 82947; 83605; 83735; 84443; 85025; 85027; 87040; 87635; 92526; 92610; 93005; 95816; 96361; 96374; 97110; 97162; 99285; J0295; J0696; J1650; J1953

== ENCOUNTER 2021-10-19 09:16 | Emergency (ER) | payer MEDICARE, MEDICAID, SELFPAY ==
[2021-10-19] VITALS (7 sets, daily range): BP systolic 90–125; BP diastolic 53–76; PULSE 61–87; RESP 12–18; TEMP 36.6; O2SAT 95–99; BMI 13.1
--- NOTE | ~2021-10-19 | XR_ITS ---
EXAMINATION: XR CHEST CLINICAL INFORMATION: Weakness COMPARISON: October 10, 2021 TECHNIQUE: AP portable view of the chest was obtained. FINDINGS: There is no evidence of acute parenchymal disease, pneumothorax, or pleural effusion. Heart normal size. No evidence of pulmonary edema. Linear scarring left base noted. XR/XR chest 1V IMPRESSION: No acute disease.
--- NOTE | 2021-10-19 09:52 | ECG_ITS ---
Test Reason : general weakness Blood Pressure : / mmHG Vent. Rate : 073 BPM Atrial Rate : 073 BPM P-R Int : 152 ms QRS Dur : 082 ms QT Int : 400 ms P-R-T Axes : 059 055 059 degrees QTc Int : 440 ms Normal sinus rhythm Normal ECG When compared with ECG of 10-OCT-2021 15:45, Nonspecific T wave abnormality no longer evident in Anterolateral leads Referred By: Cyndie Field Electronically Signed By:SUSAN GUZMAN
--- NOTE | 2021-10-19 09:54 | ED.WEAKNESS ---
HPI - Weakness General Chief complaint: Weakness Stated complaint: LETHARGY,NOT EATING,FARAZ LEG WEAKNESS PER EMS Time Seen by Provider: 10/19/21 09:51 Source: patient, EMS and old records reviewed Mode of arrival: EMS Limitations: altered mental status History of Present Illness HPI Narrative: 66-year-old male with a significant history of hypothyroidism, anemia GERD, schizophrenia, chronic constipation, live at snf came in for evaluation of weakness and pain with our [place]. With decreased p.o. intake. And being hypotensive, patient also been having bilateral lower extremity weakness (started 10 days ago was right footdrop since yesterday patient has been having left foot drop). Patient recently diagnosed with COVID had 1 week hospitalization and was sent back to the snf return today for increased weakness. Patient found to be hypotensive. Patient is poor historian as baseline. Patient had a neurology evaluation in his last admission had a CT/MRI which was suggestive for peripheral neuropathy versus polyradiculopathy. Related Data Home Medications Medication Instructions Recorded Confirmed clozapine 100 mg tablet 200 mg PO BEDTIME 11/27/20 10/19/21 fluoxetine 20 mg capsule 40 mg PO DAILY 11/27/20 10/19/21 lorazepam 0.5 mg tablet 0.5 mg PO BEDTIME Anxiety 12/12/20 10/19/21 polyvinyl alcohol 1.4 % eye drops 1 drp ophthalmic (eye) QID 07/03/21 10/19/21 (Artificial Tears (polyvinyl alcohol)) clozapine 25 mg tablet 50 mg PO BEDTIME 08/13/21 10/19/21 ascorbic acid (vitamin C) 500 mg 500 mg PO DAILY 10/10/21 10/19/21 tablet (Vitamin C) linaclotide 290 mcg capsule 290 mcg PO DAILY 10/10/21 10/19/21 (Linzess) paliperidone 6 mg tablet,extended 12 mg PO DAILY 10/10/21 10/19/21 release 24 hr triamcinolone acetonide 0.1 % 1 appl topical BID 10/10/21 10/19/21 topical cream ferrous sulfate 325 mg (65 mg 325 mg PO DAILY 10/19/21 10/19/21 iron) tablet levothyroxine 25 mcg tablet 25 mcg PO DAILY@0630 10/19/21 10/19/21 lorazepam 0.5 mg tablet 0.5 mg PO Q6H PRN Anxiety 10/19/21 10/19/21 omeprazole 20 mg capsule,delayed 20 mg PO BID@0630,1630 10/19/21 10/19/21 release polyethylene glycol 3350 17 17 g PO BID PRN Constipation 10/19/21 10/19/21 gram/dose oral powder sennosides 8.6 mg capsule (senna) 17.2 mg PO BEDTIME 10/19/21 10/19/21 Previous Rx's Medication Instructions Recorded pull ups small #100 ea 06/05/20 ENSURE #90 ea 05/22/21 desmopressin 0.1 mg tablet 0.1 mg PO BID 90 days #180 tabs 09/30/21 amoxicillin 500 mg-potassium 1 tab PO Q12H #7 tabs 10/16/21 clavulanate 125 mg tablet levetiracetam 500 mg tablet 500 mg PO BID #60 tabs 10/16/21 Allergies Allergy/AdvReac Type Severity Reaction Status Date / Time clindamycin Allergy Unknown Unknown Verified 10/10/21 02:22 Sulfa (Sulfonamide Allergy Unknown UNKNOWN Verified 10/10/21 02:22 Antibiotics) [SULFA(SULFONAMIDE ANTIBIOTICS)] sulfamethoxazole Allergy Unknown Unknown Verified 10/10/21 02:22 [From Bactrim] trimethoprim [From Bactrim] Allergy Unknown Unknown Verified 10/10/21 02:22 Review of Systems Review of Systems: All other systems are reviewed and are negative Constitutional: Reports as per HPI and Reports no additional constitutional complaints Eyes: Reports as per HPI and Reports no additional eye complaints Reports system reviewed and no additional complaints, except as documented Cardiovascular: Reports as per HPI and Reports no additional cardiovascular complaints Respiratory: Reports as per HPI and Reports no additional respiratory complaints Gastrointestinal: Reports as per HPI and Reports no additional gastrointestinal complaints Genitourinary: Reports no additional female genitourinary complaints Musculoskeletal: Reports no additional musculoskeletal complaints Skin/Breast: Reports system reviewed and no additional complaints, except as docu Psychiatric: Reports no additional psychiatric complaints Endocrine: Reports no additional endocrine complaints Hematologic/Lymphatic: Reports no additional hematologic/lymphatic complaints Allergic/Immunologic: Reports no additional allergic/immunologic complaints Reports system reviewed and no additional complaints, except as documented and Reports Abnormal speech present [facility] Past Medical History Medical History Anemia Anxiety Asthma COPD (chronic obstructive pulmonary disease) Depression GERD (gastroesophageal reflux disease) Hypothyroid Impaired glucose tolerance Mentally challenged MVP (mitral valve prolapse) Oropharyngeal dysphagia Pneumonia Schizophrenia Tracheomalacia Tubular adenoma of colon Surgical History History of esophagogastroduodenoscopy (EGD) Hx of colonoscopy S/P tracheoplasty Family History Family History Family/Other Unknown family medical history Father Hypertension Mother Unknown family medical history Brother No problems noted. Sister No problems noted. Social History Social History Household Members: Other Household Members Other:: Resides in Residential Housing: Other Housing Other:: snf Are you a primary healthcare corporate account director to a significant other at home: No Unable to assess alcohol history related to: Unable to respond and Unknown Alcohol intake: unknown Patient Tobacco Use Status: Tobacco use Unknown e-Cigarette/Vaping Use: Never Used Second Hand Smoke Exposure: No Use of substances other than those prescribed or required for medical reasons: Unknown Advance Directives: Yes Advance Directives on File: Yes Advance Directives Date on File: 11/28/20 service: No Current occupational status: disabled Cognitive needs: No Hearing needs: No Vision needs: No Physical Exam Vital Signs: Vital Signs: Last Vital Signs Temp 97.8 F 10/19/21 09:47 Pulse 78 10/19/21 12:52 Resp 18 10/19/21 12:52 BP 125/65 10/19/21 12:52 Pulse Ox 97 10/19/21 10:06 O2 Del Method 10/19/21 10:06 BMI result Body Mass Index 13.1 Vital signs have been reviewed as appeared to be correct. Blood pressure normal. Heart rate normal. Respiration rate normal. Temperature normal. Oxygen saturation normal. Appearance: Alert. Oriented X1. No acute distress. Head: Normal external exam. Normocephalic. Atraumatic. No Fernandes signs noted. No raccoon eyes noted Eyes: PERRLA. EOMI. Conjunctiva and sclera normal. Eyelids normal. ENT: TM's Normal. Pharynx normal. Uvula midline. Moist mucous membranes. No trismus noted. No drooling noted. No muffled voice noted. Neck: Normal inspection. Neck supple. FROM. No adenopathy. Thyroid Normal. No meningeal signs. No neck mass noted. CVS: Normal heart rate and rhythm. Heart sound normal. No murmurs noted. Pulses normal throughout. Respiratory: No respiratory distress. Painless inspiration. Breath sounds normal. No wheezes/rales/rhonchi noted. Chest nontender. No accessory muscle usage noted or decreased air movement noted. Abdomen: Soft and nontender. Bowel sounds normal in all 4 quadrants. No distention noted. No organomegaly noted. No visible injury noted. Back: No CVA tenderness. Full range of motion noted. Skin: Skin warm and dry. Normal skin color. Normal skin turgor. No rashes/lesions/lacerations noted. Extremities: No lower extremity edema. Extremities exhibit normal range of motion. Extremities nontender. Bilateral footdrop. Neuro: Oriented X 1. Cranial nerve exam: II-XII are grossly intact No motor deficit. No sensory deficit. Reflexes normal. Course Course Course Narrative: Bilateral foot drop as he had previous neurologic evaluation/spine MRI/head CT suggestive for peripheral neuropathy or polyradiculopathy. Patient was discharged back to the retirement after COVID infection due to patient's generalized weakness and hypotension patient was sent for re-evaluation today, patient responded well to IV hydration, given 1 dose of antibiotic for UTI. Case discussed with Dr. Gómez who decline patient's admission Will keep the patient for physician observation and placement after PT evaluation and case management. MDM - Weakness Medical Records Attestation: I reviewed the patient's medical records. Lab Data Attestation: I reviewed the patient's lab results. Result diagrams: 10/19/21 10:53 10/19/21 10:53 Labs: Lab Results 10/19/21 10/19/21 10/19/21 Range/Units 09:54 10:44 10:44 WBC (4.8-10.8) X10*3/uL RBC (4.60-5.80) X10*6/uL Hgb (14.0-18.0) g/dl Hct (42.0-52.0) % MCV (80.0-98.0) fL MCH (27.0-33.0) pg MCHC (31.0-36.0) g/dl RDW (11.0-16.0) % Plt Count (160-400) X10*3/uL MPV (9.4-12.4) fL Immature Gran % (Auto) (0.0-0.4) % Neut % (Auto) (45-73) % Lymph % (Auto) (20-40) % [place] % (Auto) (2-11) % Eos % (Auto) (0-4) % Baso % (Auto) (0-2) % Lymph # (Auto) (1.2-4.9) X10*3/uL [place] # (Auto) (0.1-1.2) X10*3/uL Eos # (Auto) (0.0-0.4) X10*3/uL Baso # (Auto) (0.0-0.2) X10*3/uL Abs Immat Gran (auto) (0.00-0.03) X10*3/uL Absolute Neuts (auto) (2.0-8.3) x10*3/uL Absolute Nucleated RBC (0.0-0.012) X10*3/uL Nucleated RBC % (auto) (0.0-0.2) /100WBC Sodium (135-145) mmol/L Potassium (3.3-5.1) mmol/L Chloride (96-108) mmol/L Carbon Dioxide (22-29) mmol/L Anion Gap (12-20) BUN (9-16) mg/dL Creatinine (0.5-1.4) mg/dL Estim Creat Clear Calc Estimated GFR POC Glucose 66 (60-115) mg/dL Random Glucose (60-115) mg/dL Lactic Acid (0.5-2.0) mmol/L Calcium (8.4-10.2) mg/dL Total Bilirubin (0.0-1.0) mg/dL Direct Bilirubin (0.0-0.5) mg/dL AST (5-37) U/L ALT (0-40) U/L Alkaline Phosphatase (39-117) U/L Troponin I High Sens (<3.5-35.0) ng/L B-Natriuretic Peptide (<100) pg/mL Total Protein (6.5-8.0) g/dL Albumin (3.5-5.0) g/dL Lipase (8-78) U/L Urine Color Yellow Urine Appearance Clear Urine pH 6.0 (5.0-8.0) Ur Specific [place] 1.020 (1.005-1.025) Urine Protein Negative (Neg-Trace) mg/dL Urine Glucose (UA) Negative (Negative) mg/dL Urine Ketones 80 (Negative) mg/dL Urine Blood Moderate (2+) H (Negative) Urine Nitrite Negative (Negative) Ur Leukocyte Esterase Negative (Negative) Urine RBC >20 H (0-2) /HPF Urine WBC 6-10 H (0-5) /HPF Ur Squamous Epith Cells 0-2 (0-2) /HPF Urine Bacteria None Seen (None Seen) Hyaline Casts 0-2 (0-2) /LPF COVID-19 ([facility]) Positive A (Negative) COVID-19 Clin Com See Note 10/19/21 10/19/21 10/19/21 Range/Units 10:53 10:53 10:53 WBC 8.1 (4.8-10.8) X10*3/uL RBC 3.81 L (4.60-5.80) X10*6/uL Hgb 11.2 L (14.0-18.0) g/dl Hct 34.1 L (42.0-52.0) % MCV 89.5 (80.0-98.0) fL MCH 29.4 (27.0-33.0) pg MCHC 32.8 (31.0-36.0) g/dl RDW 13.8 (11.0-16.0) % Plt Count 370 (160-400) X10*3/uL MPV 9.9 (9.4-12.4) fL Immature Gran % (Auto) 0.4 (0.0-0.4) % Neut % (Auto) 80.5 H (45-73) % Lymph % (Auto) 9.6 L (20-40) % [place] % (Auto) 8.2 (2-11) % Eos % (Auto) 0.7 (0-4) % Baso % (Auto) 0.6 (0-2) % Lymph # (Auto) 0.8 L (1.2-4.9) X10*3/uL [place] # (Auto) 0.7 (0.1-1.2) X10*3/uL Eos # (Auto) 0.1 (0.0-0.4) X10*3/uL Baso # (Auto) 0.1 (0.0-0.2) X10*3/uL Abs Immat Gran (auto) 0.03 (0.00-0.03) X10*3/uL Absolute Neuts (auto) 6.5 (2.0-8.3) x10*3/uL Absolute Nucleated RBC 0.000 (0.0-0.012) X10*3/uL Nucleated RBC % (auto) 0.0 (0.0-0.2) /100WBC Sodium 139 (135-145) mmol/L Potassium 4.2 (3.3-5.1) mmol/L Chloride 102 (96-108) mmol/L Carbon Dioxide 26 (22-29) mmol/L Anion Gap 15 (12-20) BUN 19 H (9-16) mg/dL Creatinine 0.84 (0.5-1.4) mg/dL Estim Creat Clear Calc 47.3 Estimated GFR > 60 POC Glucose (60-115) mg/dL Random Glucose 68 (60-115) mg/dL Lactic Acid 0.8 (0.5-2.0) mmol/L Calcium 9.3 (8.4-10.2) mg/dL Total Bilirubin 0.4 (0.0-1.0) mg/dL Direct Bilirubin 0.2 (0.0-0.5) mg/dL AST 13 (5-37) U/L ALT 13 (0-40) U/L Alkaline Phosphatase 96 (39-117) U/L Troponin I High Sens (<3.5-35.0) ng/L B-Natriuretic Peptide (<100) pg/mL Total Protein 6.2 L (6.5-8.0) g/dL Albumin 3.7 (3.5-5.0) g/dL Lipase 29 (8-78) U/L Urine Color Urine Appearance Urine pH (5.0-8.0) Ur Specific [place] (1.005-1.025) Urine Protein (Neg-Trace) mg/dL Urine Glucose (UA) (Negative) mg/dL Urine Ketones (Negative) mg/dL Urine Blood (Negative) Urine Nitrite (Negative) Ur Leukocyte Esterase (Negative) Urine RBC (0-2) /HPF Urine WBC (0-5) /HPF Ur Squamous Epith Cells (0-2) /HPF Urine Bacteria (None Seen) Hyaline Casts (0-2) /LPF COVID-19 ([facility]) (Negative) COVID-19 Clin Com 10/19/21 Range/Units 10:53 WBC (4.8-10.8) X10*3/uL RBC (4.60-5.80) X10*6/uL Hgb (14.0-18.0) g/dl Hct (42.0-52.0) % MCV (80.0-98.0) fL MCH (27.0-33.0) pg MCHC (31.0-36.0) g/dl RDW (11.0-16.0) % Plt Count (160-400) X10*3/uL MPV (9.4-12.4) fL Immature Gran % (Auto) (0.0-0.4) % Neut % (Auto) (45-73) % Lymph % (Auto) (20-40) % [place] % (Auto) (2-11) % Eos % (Auto) (0-4) % Baso % (Auto) (0-2) % Lymph # (Auto) (1.2-4.9) X10*3/uL [place] # (Auto) (0.1-1.2) X10*3/uL Eos # (Auto) (0.0-0.4) X10*3/uL Baso # (Auto) (0.0-0.2) X10*3/uL Abs Immat Gran (auto) (0.00-0.03) X10*3/uL Absolute Neuts (auto) (2.0-8.3) x10*3/uL Absolute Nucleated RBC (0.0-0.012) X10*3/uL Nucleated RBC % (auto) (0.0-0.2) /100WBC Sodium (135-145) mmol/L Potassium (3.3-5.1) mmol/L Chloride (96-108) mmol/L Carbon Dioxide (22-29) mmol/L Anion Gap (12-20) BUN (9-16) mg/dL Creatinine (0.5-1.4) mg/dL Estim Creat Clear Calc Estimated GFR POC Glucose (60-115) mg/dL Random Glucose (60-115) mg/dL Lactic Acid (0.5-2.0) mmol/L Calcium (8.4-10.2) mg/dL Total Bilirubin (0.0-1.0) mg/dL Direct Bilirubin (0.0-0.5) mg/dL AST (5-37) U/L ALT (0-40) U/L Alkaline Phosphatase (39-117) U/L Troponin I High Sens < 3.5 (<3.5-35.0) ng/L B-Natriuretic Peptide 31 (<100) pg/mL Total Protein (6.5-8.0) g/dL Albumin (3.5-5.0) g/dL Lipase (8-78) U/L Urine Color Urine Appearance Urine pH (5.0-8.0) Ur Specific [place] (1.005-1.025) Urine Protein (Neg-Trace) mg/dL Urine Glucose (UA) (Negative) mg/dL Urine Ketones (Negative) mg/dL Urine Blood (Negative) Urine Nitrite (Negative) Ur Leukocyte Esterase (Negative) Urine RBC (0-2) /HPF Urine WBC (0-5) /HPF Ur Squamous Epith Cells (0-2) /HPF Urine Bacteria (None Seen) Hyaline Casts (0-2) /LPF COVID-19 ([facility]) (Negative) COVID-19 Clin Com Imaging Data Chest x-ray: Attestation: I personally reviewed and interpreted this imaging study as follows: Radiologist's impression: No acute disease Discharge Plan Discharge Clinical Impression: Acute UTI, Adult failure to thrive, Acute dehydration Patient Disposition: Still a Patient Prescriptions: No Action (DME) ENSURE See Rx Instructions .Route .MEDSUPPLY Qty: 90 11RF Rx Instructions: As directed desmopressin 0.1 mg tablet 0.1 mg PO BID 90 Days Qty: 180 1RF fluoxetine 20 mg capsule 40 mg PO DAILY lorazepam 0.5 mg tablet 0.5 mg PO BEDTIME lorazepam 0.5 mg tablet 0.5 mg PO Q6H PRN (Reason: Anxiety) ferrous sulfate 325 mg (65 mg iron) Tablet 325 mg PO DAILY polyethylene glycol 3350 17 gram/dose powder 17 g PO BID PRN (Reason: Constipation) levothyroxine 25 mcg tablet 25 mcg PO DAILY@0630 omeprazole 20 mg capsule,delayed release(DR/EC) 20 mg PO BID@0630,1630 senna 8.6 mg capsule 17.2 mg PO BEDTIME Linzess 290 mcg capsule 290 mcg PO DAILY triamcinolone acetonide 0.1 % Cream 1 appl TOPICAL BID ascorbic acid (vitamin C) [Vitamin C] 500 mg Tablet 500 mg PO DAILY paliperidone 6 mg Tablet Extended Release 24hr 12 mg PO DAILY amoxicillin-pot clavulanate 500-125 mg tablet 1 tab PO Q12H Qty: 7 0RF levetiracetam 500 mg tablet 500 mg PO BID Qty: 60 0RF (DME) pull ups small See Rx Instructions .Route .MEDSUPPLY Qty: 100 11RF Rx Instructions: As directed clozapine 100 mg tablet 200 mg PO BEDTIME clozapine 25 mg tablet 50 mg PO BEDTIME polyvinyl alcohol [Artificial Tears (polyvin alc)] 1.4 % drops 1 drp ophthalmic (eye) QID Rx Instructions: 1 drop in both eyes
[2021-10-19 10:19] LABS: Glucose, Whole Blood 66 mg/dL (60-115)
--- NOTE | 2021-10-19 10:45 | PC.NURSE ---
pt is alert but not oriented, pt not able to state his own birthday, date or year, where he currently is. pt skin pwd, respirations even and unlabored, pt is frail in appearance, pt does have a wound dressing on his right outer heel, ns on the monitor.
[2021-10-19 10:53] LABS: Appearance Urine Clear; Color Urine Yellow; Glucose Urine UA Negative (Negative); Leukocyte Esterase Urine Negative (Negative); Nitrite Urine Negative (Negative); Urine Blood Moderate (2+) (Negative); Urine Ketones 80 mg/dL (Negative); Urine Protein Negative (Neg-Trace)
[2021-10-19 10:58] LABS: MANUAL DIFF FLAG NO
[2021-10-19 10:59] LABS: Basophils Absolute Auto 0.1 X10*3/uL (0.0-0.2); Basophils Percent Auto 0.6 % (0-2); Eosinophils Absolute Auto 0.1 X10*3/uL (0.0-0.4); Eosinophils Percent Auto 0.7 % (0-4); Hematocrit 34.1 % (42.0-52.0); Hemoglobin 11.2 g/dl (14.0-18.0); Imm Gran Abs Auto 0.03 X10*3/uL (0.00-0.03); Imm Gran Pct Auto 0.4 % (0.0-0.4); Lymphocytes Absolute Auto 0.8 X10*3/uL (1.2-4.9); Lymphocytes Percent Auto 9.6 % (20-40); Mean Corpuscular HGB Conc 32.8 g/dl (31.0-36.0); Mean Corpuscular Hemoglobin 29.4 pg (27.0-33.0); Mean Corpuscular Volume 89.5 fL (80.0-98.0); Mean Platelet Volume 9.9 fL (9.4-12.4); Monocytes Absolute Auto 0.7 X10*3/uL (0.1-1.2); Monocytes Percent Auto 8.2 % (2-11); Neutrophils Absolute Auto 6.5 x10*3/uL (2.0-8.3); Neutrophils Percent Auto 80.5 % (45-73); Platelet Count 370 X10*3/uL (160-400); Red Blood Count 3.81 X10*6/uL (4.60-5.80); Red Cell Distribution Width 13.8 % (11.0-16.0); White Blood Count 8.1 X10*3/uL (4.8-10.8)
[2021-10-19 11:11] LABS: Lactic Acid 0.8 mmol/L (0.5-2.0)
[2021-10-19 11:12] LABS: COVID-19 Test Positive (Negative); IDNOW Serial# 9DB6401D
[2021-10-19 11:17] LABS: Alanine Aminotransferase 13 U/L (0-40); Albumin Level 3.7 g/dL (3.5-5.0); Alkaline Phosphatase 96 U/L (39-117); Anion Gap 15 (12-20); Aspartate Amino Transferase 13 U/L (5-37); Bilirubin Direct 0.2 mg/dL (0.0-0.5); Bilirubin Total 0.4 mg/dL (0.0-1.0); Blood Urea Nitrogen 19 mg/dL (9-16); Calcium 9.3 mg/dL (8.4-10.2); Carbon Dioxide 26 mmol/L (22-29); Chloride 102 mmol/L (96-108); Creatinine Clr Calc Pharmacy 47.3; Estimated Glomerular Filt Rate > 60; Glucose Random 68 mg/dL (60-115); Lipase 29 U/L (8-78); Potassium 4.2 mmol/L (3.3-5.1); Sodium 139 mmol/L (135-145); Total Protein 6.2 g/dL (6.5-8.0)
--- NOTE | 2021-10-19 11:19 | PHA.MEDREC ---
Pharmacy Consult ? Medication Reconciliation Pharmacy has completed the medication reconciliation. Pt med list sent from [facility]. Patient has not taken ANY medications ( including clozaril) since he has been discharged from the hospital on 10/17/21.
[2021-10-19 11:22] LABS: Bacteria Urine None Seen (None Seen); Hyaline Casts Urine 0-2 /LPF (0-2); RBC Urine >20 /HPF (0-2); Squamous Epithelial Cell Urine 0-2 /HPF (0-2); UACC Culture Trigger YES
[2021-10-19 11:23] LABS: B Type Natriuretic Peptide 31 pg/mL (<100); Troponin-I High Sensitivity < 3.5 ng/L (<3.5-35.0)
--- NOTE | 2021-10-19 12:52 | PC.NURSE ---
pt incontinent of urine, pt cleaned up and repositioned to [facility] left side
[2021-10-19] MEDS: cefTRIAXone sodium 1 GM in 0.9 % Sodium Chloride 50 ML IV (14:32)
--- NOTE | 2021-10-19 14:38 | MHC.CM.ED ---
Addendum entered by Chio Leigh 10/19/21 15:06: Received return tleephone call from patient's sister, Itzel. She can be reached via cell at [phone]. [facility] is 1st choice. List of facilities also sent via email. Patient will need Level [address] [facility] [place] exemption letter. T/W already submitted to [facility] [place]). Original Note: Received case management consult from Dr Field. Patient originally tested positive for Covid on 10/04/21. Patient was admitted at [facility]. [facility] to [facility] at 10/17/21. Patient returned to ER due to weakness. Patient is not able to safely return to [facility] at this time due to weakness/deconditioning. Patient will need short term rehab in order to safely return to [facility]. Patient currently sleeping. Attempted to speak with patient's sister/HCP, Itzel via telephone. Left voicemail requesting return telephone call. Continue to monitor for d/c needs.
--- NOTE | 2021-10-19 14:44 | PC.NURSE ---
Pt eats a pureed and nectar thick diet at the shelter according to staff.
--- NOTE | 2021-10-19 14:44 | PC.NURSE ---
ceftin bid is to start on 10/20/[address] rivero verbal order but was not sure how to put in the computer
--- NOTE | 2021-10-19 14:47 | MHC.CM.PN ---
PATIENT WITH HISTORY OF SCHIZOPHRENIA PRESENTED WITH WEAKNESS, NOW BOARDING IN THE ED AND AWAITING PLACEMENT. PATIENT CURRENTLY EXHIBITS NO EVIDENCE OF SI/HI AND NO BEHAVIORAL DISTURBANCES.
--- NOTE | 2021-10-19 15:23 | PC.NURSE ---
pt appears more awake and talkative at this time, vs stable
--- NOTE | 2021-10-19 18:49 | PC.NURSE ---
pt incontinent of urine, cleaned up and repositioned yo his right side
--- NOTE | 2021-10-19 21:44 | PM.EVENT ---
Event Note Date of Service: 10/19/21 Event Note: patient was sleeve. He cannot wait for the MRI in the morning. He is frustrated that he has to wait in the hospital ED, I explained to him that I do not recommend him leaving and I do highly suggest he stay overnight and get the MRI in the morning to evaluate for TIA. Patient reports that he will go to his PCP and last time he had a stroke his PCP was able to get him the MRI outpatient. I explained to him that because were unable to get his MRI today, he will need to stay overnight to get the MRI in the morning. He understands the risk of leaving including a large stroke and potentially , and he will be leaving against medical advice
[2021-10-20 00:06] VITALS: BP 149/70; PULSE 98; RESP 16; O2SAT 98
[2021-10-20 02:22] VITALS: BP 141/70; PULSE 68; RESP 18; O2SAT 93
[2021-10-20 05:43] VITALS: BP 154/69; PULSE 97; RESP 14; O2SAT 96
[2021-10-20 07:15] VITALS: BP 133/71; PULSE 67; RESP 14; TEMP 36.8; O2SAT 99
--- NOTE | 2021-10-20 07:47 | PC.NURSE ---
spoke with case management- pt was originally covid positive on 10/04/21. plan is new placement d/t weakness sn[facility] unable to meet his current needs.
--- NOTE | 2021-10-20 08:03 | PC.NURSE ---
physical therapy at bedside for eval
[2021-10-20 11:27] VITALS: BP 129/60; PULSE 62; RESP 14; O2SAT 96
--- NOTE | 2021-10-20 12:48 | MHC.CM.ED ---
Patient remains in ER. Copy of Level 2 obtained from [facility]. [facility] is 1st choice. They are unable to offer a bed. At [facility]. [facility] is reviewing. T/W spoke with patient's sister/HCP, Itzel via telephone. She gets out of work at 330pm and will call with facility choice. Continue to monitor for d/c needs.
--- NOTE | 2021-10-20 16:13 | MHC.CM.ED ---
Received telephone call from patient's sister, Itzel. She will accept bed at [facility]. [facility] made aware. Trying to confirm time patient can transfer. Continue to monitor for d/c needs.
--- NOTE | 2021-10-20 16:19 | PC.NURSE ---
Pt is awake. Oriented to name only. Unable to verify , time, or place. Pt resting in bed watching TV. No apparent distress. Breaths are even and unlabored. Pt informed of plan of care.
--- NOTE | 2021-10-20 17:04 | MHC.CM.ED ---
[facility] aware of transport at 1730. Action will pharmacy picking tech about 6 pm. Pt, sister, Lindy ROSADO and Dr. Gregorio Reyes aware. Med mec and ED worksheet on chart. [place] aware. CM to follow for d/c needs.
--- NOTE | 2021-10-20 18:14 | PC.NURSE ---
report given to luis
== END 2021-10-20 18:10 ==
PROVIDERS: Emergency Provider Emergency Medicine; PCP Internal Medicine
DX: R53.83 Other fatigue (principal); N39.0 Urinary tract infection, site not specified; E86.0 Dehydration; R06.02 Shortness of breath; R62.7 Adult failure to thrive; Z20.822 Contact with and (suspected) exposure to COVID-19; Z79.899 Other long term (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
CPT/HCPCS: 36415; 71045; 80048; 80076; 81001; 82947; 83605; 83690; 83880; 84484; 85025; 87040; 87086; 87147; 87205; 87635; 93005; 96365; 97162; 99285; J0696

== ENCOUNTER 2022-02-13 14:50 | Outpatient (REF) | payer MEDICARE, MEDICAID, SELFPAY ==
[2022-02-13 15:13] LABS: MANUAL DIFF FLAG NO
[2022-02-13 15:24] LABS: Basophils Absolute Auto 0.1 X10*3/uL (0.0-0.2); Basophils Percent Auto 1.1 % (0-2); Eosinophils Absolute Auto 0.2 X10*3/uL (0.0-0.4); Eosinophils Percent Auto 3.6 % (0-4); Hemoglobin 11.2 g/dl (14.0-18.0); Imm Gran Abs Auto 0.01 X10*3/uL (0.00-0.03); Imm Gran Pct Auto 0.2 % (0.0-0.4); Lymphocytes Absolute Auto 1.4 X10*3/uL (1.2-4.9); Mean Corpuscular Hemoglobin 29.5 pg (27.0-33.0); Mean Corpuscular Volume 92.1 fL (80.0-98.0); Mean Platelet Volume 10.2 fL (9.4-12.4); Monocytes Absolute Auto 0.5 X10*3/uL (0.1-1.2); Monocytes Percent Auto 9.5 % (2-11); Neut%MD 56.6 %; Neutrophils Absolute Auto 2.7 x10*3/uL (2.0-8.3); Neutrophils Percent Auto 56.6 % (45-73); Platelet Count 286 X10*3/uL (160-400); WBCANC 4.8 X10*3/uL; White Blood Count 4.8 X10*3/uL (4.8-10.8)
== END 2022-02-13 14:51 | disposition home or self-care (01) ==
LOC: HO.LABR 14:50
PROVIDERS: PCP Internal Medicine; Visit Provider Clinical Nurse Specialist Psychiatric/Mental Health, Adult
DX: Z79.899 Other long term (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 (principal)
CPT/HCPCS: 36415; 85025

== ENCOUNTER 2022-05-04 22:01 | Emergency (ER) | payer MEDICARE, MEDICAID, SELFPAY ==
--- NOTE | ~2022-05-04 | XR_ITS ---
EXAMINATION: XR CHEST CLINICAL INFORMATION: Cough COMPARISON: Chest radiograph, CTA chest 12/09/2017 10/19/2021 TECHNIQUE: Frontal view of the chest was obtained. FINDINGS: Patchy consolidation is present in the right lung overlying the upper lung as well as the mid and lower lung. The left lung appears clear. No pleural effusions. Heart size normal. The infiltrates are new when compared to the prior chest radiograph. At the time of the [address] scan, the patient had bilateral infiltrates. XR/XR chest 1V IMPRESSION: Multifocal infiltrates right lung. Findings are consistent with pneumonia.
[2022-05-04 22:12] VITALS: BP 112/74; BP 116/72; PULSE 82; PULSE 88; RESP 14; TEMP 36.8; O2SAT 95; O2SAT 96; BMI 16.5
[2022-05-04 22:16] VITALS: BP 116/68; O2SAT 95
--- NOTE | 2022-05-04 22:37 | ED.URI ---
HPI - URI/Sore Throat General Chief Complaint: Upper Respiratory Symptoms Stated Complaint: Cough for 3 days Time Seen by Provider: 05/04/22 22:03 History of Present Illness HPI Narrative: Patient is a 66-year-old male with a history of schizophrenia history of failure to thrive presents today with having coughing upper respiratory symptoms ongoing and a 3 days. Patient had a previous COVID infection in the past. Feels generally weak tire patient home. Unable to give specifics. Related Data Home Medications Medication Instructions Recorded Confirmed clozapine 100 mg tablet 200 mg PO BEDTIME 11/27/20 03/11/22 fluoxetine 20 mg capsule 40 mg PO DAILY 11/27/20 03/11/22 lorazepam 0.5 mg tablet 0.5 mg PO BEDTIME Anxiety 12/12/20 03/11/22 polyvinyl alcohol 1.4 % eye drops 1 drp ophthalmic (eye) QID 07/03/21 03/11/22 (Artificial Tears (polyvinyl alcohol)) clozapine 25 mg tablet 50 mg PO BEDTIME 08/13/21 03/11/22 linaclotide 290 mcg capsule 290 mcg PO DAILY 10/10/21 03/11/22 (Linzess) triamcinolone acetonide 0.1 % 1 appl topical BID 10/10/21 03/11/22 topical cream lorazepam 0.5 mg tablet 0.5 mg PO Q6H PRN Anxiety 10/19/21 03/11/22 polyethylene glycol 3350 17 17 g PO BID PRN Constipation 10/19/21 03/11/22 gram/dose oral powder sennosides 8.6 mg capsule (senna) 17.2 mg PO BEDTIME 10/19/21 03/11/22 Previous Rx's Medication Instructions Recorded pull ups small #100 ea 06/05/20 desmopressin 0.1 mg tablet 0.1 mg PO BID 90 days #180 tabs 09/30/21 right AFO #1 ea 11/24/21 levetiracetam 500 mg tablet 500 mg PO BID #60 tabs 02/02/22 ascorbic acid (vitamin C) 500 mg 500 mg PO DAILY #90 tabs 03/12/22 tablet (Vitamin C) food supplemt, lactose-reduced 1 ea PO .QD 30 days #30 bottles 03/24/22 0.04 gram-1 kcal/mL oral liquid (Boost) levothyroxine 25 mcg tablet 25 mcg PO DAILY #30 tabs 04/22/22 omeprazole 20 mg capsule,delayed 20 mg PO BID@0630,1630 #60 caps 05/04/22 release doxycycline hyclate 100 mg capsule 100 mg PO BID cough 7 days #14 caps 05/05/22 Allergies Allergy/AdvReac Type Severity Reaction Status Date / Time clindamycin Allergy Unknown Unknown Verified 03/11/22 09:06 Sulfa (Sulfonamide Allergy Unknown UNKNOWN Verified 03/11/22 09:06 Antibiotics) [SULFA(SULFONAMIDE ANTIBIOTICS)] sulfamethoxazole Allergy Unknown Unknown Verified 03/11/22 09:06 [From Bactrim] trimethoprim [From Bactrim] Allergy Unknown Unknown Verified 03/11/22 09:06 Review of Systems Review of Systems: Positive coughing congestion upper respiratory symptoms Yes all other systems are reviewed and are negative [facility] Past Medical History Attestation statement: The following information was validated with the patient. Medical History Adult failure to thrive Anemia Anxiety Asthma Ataxic gait Ataxic gait COPD (chronic obstructive pulmonary disease) COVID-19 Depression GERD (gastroesophageal reflux disease) Hypothyroid Impaired glucose tolerance Mentally challenged Metabolic encephalopathy MVP (mitral valve prolapse) Oropharyngeal dysphagia Paraparesis Pneumonia Schizophrenia Tracheomalacia Tubular adenoma of colon Surgical History History of esophagogastroduodenoscopy (EGD) Hx of colonoscopy S/P tracheoplasty Family History Family History Family/Other Unknown family medical history Father Hypertension Mother Unknown family medical history Brother No problems noted. Sister No problems noted. Social History Social History Household Members: Other Household Members Other:: Resides in Long-Term Housing: Other Housing Other:: senior living Are you a primary housekeeper child care to a significant other at home: No Unable to assess alcohol history related to: Unable to respond and Unknown Alcohol intake: unknown Patient Tobacco Use Status: Tobacco use Unknown Smoked in Last 30 Days: No e-Cigarette/Vaping Use: Never Used Second Hand Smoke Exposure: No Use of substances other than those prescribed or required for medical reasons: No Advance Directives: Yes Advance Directives on File: Yes Advance Directives Date on File: 11/28/20 service: No Current occupational status: disabled Cognitive needs: No Hearing needs: No Vision needs: No Physical Exam Vital Signs: Vital Signs: Last Vital Signs Temp 98.3 F 05/04/22 22:12 Pulse 82 05/04/22 22:12 Resp 14 05/04/22 22:12 BP 116/68 05/04/22 22:16 Pulse Ox 95 05/04/22 22:16 O2 Del Method 05/04/22 22:16 BMI result Body Mass Index 16.5 Appearance: Alert. Oriented X3. No acute distress. Eyes: Pupils equal, round and reactive to light. ENT: Pharynx normal. Neck: Normal inspection. Neck supple. No lymph nodes noted. No crepitus CVS: Normal heart rate and rhythm. Pulses normal. Normal S1 and S2 Respiratory: No respiratory distress. Breath sounds normal. No Wheezing. No rales Abdomen: Soft and nontender. No rigidity. No distention. good BS x4 Skin: Skin warm and dry. Normal skin color. Normal skin turgor. Extremities: No lower extremity edema. Neurovascular intact to all extremities. No Lacerations. No Rash Neuro: Oriented X 3. No motor deficit. No sensory deficit. Moving all extermities. No slurred speech Medical Decision Making Medical Decision Making MDM Narrative: Positive coughing congestion upper respiratory symptoms generalized malaise with a history of schizophrenia. Will get labs COVID test and chest x-ray. Patient's COVID are 3 flu all negative. Chest x-ray showed right-sided infiltrate. Patient's O2 sats 95% on room air. Positive coughing congestion from a senior living. History of schizophrenia grossly appear dehydrated will give IV fluids. We will go ahead and culture and give antibiotics. Patient's case discussed with hospitalist. Hospitalist evaluated the patient. Feel comfortable with discharge home patient home as patient's O2 sats 95% on room air. Patient's labs show mild dehydration a L of fluid was given feel comfortable with having the patient take doxycycline on an outpatient basis. He will need close follow-up. In stable condition. Differential Diagnosis Pneumonia, COVID, congestive heart failure Admission/Observation Consideration of admission/observation: Escalation of care including admission/observation considered Consult Healthcare Provider Management of the patient was discussed with: Hospitalist Lab Data MDM Lab Attestation statement: I reviewed the patient's lab results. 05/04/22 22:52 05/04/22 22:52 Labs: Lab Results 05/04/22 05/04/22 05/04/22 Range/Units 22:21 22:52 22:52 WBC 8.8 (4.8-10.8) X10*3/uL RBC 3.67 L (4.60-5.80) X10*6/uL Hgb 10.9 L (14.0-18.0) g/dl Hct 33.0 L (42.0-52.0) % MCV 89.9 (80.0-98.0) fL MCH 29.7 (27.0-33.0) pg MCHC 33.0 (31.0-36.0) g/dl RDW 14.2 (11.0-16.0) % Plt Count 292 (160-400) X10*3/uL MPV 10.0 (9.4-12.4) fL Immature Gran % (Auto) 0.5 H (0.0-0.4) % Neut % (Auto) 80.1 H (45-73) % Lymph % (Auto) 11.3 L (20-40) % [place] % (Auto) 3.8 (2-11) % Eos % (Auto) 4.0 (0-4) % Baso % (Auto) 0.3 (0-2) % Lymph # (Auto) 1.0 L (1.2-4.9) X10*3/uL [place] # (Auto) 0.3 (0.1-1.2) X10*3/uL Eos # (Auto) 0.4 (0.0-0.4) X10*3/uL Baso # (Auto) 0.0 (0.0-0.2) X10*3/uL Abs Immat Gran (auto) 0.04 H (0.00-0.03) X10*3/uL Absolute Neuts (auto) 7.1 (2.0-8.3) x10*3/uL Absolute Nucleated RBC 0.000 (0.0-0.012) X10*3/uL Nucleated RBC % (auto) 0.0 (0.0-0.2) /100WBC Sodium 147 H (135-145) mmol/L Potassium 3.9 (3.3-5.1) mmol/L Chloride 113 H (96-108) mmol/L Carbon Dioxide 25 (22-29) mmol/L Anion Gap 13 (12-20) BUN 23 H (9-16) mg/dL Creatinine 0.83 (0.5-1.4) mg/dL Estim Creat Clear Calc 54.9 Estimated GFR > 60 Random Glucose 152 H (60-115) mg/dL Calcium 9.1 (8.4-10.2) mg/dL Influenza Type A (PCR) NEGATIVE (Negative) Influenza Type B (PCR) NEGATIVE (Negative) RSV RNA Qual (PCR) NEGATIVE (Negative) SARS-CoV-2 RNA (RT-PCR) NEGATIVE (Negative) Radiology Impression Discussion of test interpretation with radiology: I have reviewed the radiologist's reading. Radiologist Impression: Positive right-sided infiltrate External Record Review External record reviewed: Inpatient record Chronic Conditions Schizophrenia, failure to thrive, COPD Discharge Plan Discharge Clinical Impression: Pneumonia Patient Disposition: Home, Self-Care Instructions: Pneumonia (ED) Prescriptions: New doxycycline hyclate 100 mg capsule 100 mg PO BID 7 Days Qty: 14 0RF No Action desmopressin 0.1 mg tablet 0.1 mg PO BID 90 Days Qty: 180 1RF (DME) right AFO See Rx Instructions .Route .MEDSUPPLY Qty: 1 0RF Rx Instructions: As directed levetiracetam 500 mg tablet 500 mg PO BID Qty: 60 5RF ascorbic acid (vitamin C) [Vitamin C] 500 mg tablet 500 mg PO DAILY Qty: 90 3RF Boost 0.04 gram- 1 kcal/mL liquid 1 ea PO .QD 30 Days Qty: 30 11RF levothyroxine 25 mcg tablet 25 mcg PO DAILY Qty: 30 0RF omeprazole 20 mg capsule,delayed release(DR/EC) 20 mg PO BID@0630,1630 Qty: 60 0RF fluoxetine 20 mg capsule 40 mg PO DAILY lorazepam 0.5 mg tablet 0.5 mg PO BEDTIME lorazepam 0.5 mg tablet 0.5 mg PO Q6H PRN (Reason: Anxiety) polyethylene glycol 3350 17 gram/dose powder 17 g PO BID PRN (Reason: Constipation) senna 8.6 mg capsule 17.2 mg PO BEDTIME Linzess 290 mcg capsule 290 mcg PO DAILY triamcinolone acetonide 0.1 % Cream 1 appl TOPICAL BID (DME) pull ups small See Rx Instructions .Route .MEDSUPPLY Qty: 100 11RF Rx Instructions: As directed clozapine 100 mg tablet 200 mg PO BEDTIME clozapine 25 mg tablet 50 mg PO BEDTIME polyvinyl alcohol [Artificial Tears (polyvin alc)] 1.4 % drops 1 drp ophthalmic (eye) QID Rx Instructions: 1 drop in both eyes Referrals: Physician,Unknown J [Primary Care Provider] - 05/07/22
[2022-05-04 22:58] LABS: MANUAL DIFF FLAG NO
[2022-05-04 22:59] LABS: Basophils Percent Auto 0.3 % (0-2); Eosinophils Absolute Auto 0.4 X10*3/uL (0.0-0.4); Hemoglobin 10.9 g/dl (14.0-18.0); Imm Gran Abs Auto 0.04 X10*3/uL (0.00-0.03); Imm Gran Pct Auto 0.5 % (0.0-0.4); Lymphocytes Percent Auto 11.3 % (20-40); Mean Corpuscular Hemoglobin 29.7 pg (27.0-33.0); Mean Corpuscular Volume 89.9 fL (80.0-98.0); Monocytes Absolute Auto 0.3 X10*3/uL (0.1-1.2); Monocytes Percent Auto 3.8 % (2-11); Neutrophils Absolute Auto 7.1 x10*3/uL (2.0-8.3); Neutrophils Percent Auto 80.1 % (45-73); Platelet Count 292 X10*3/uL (160-400); Red Blood Count 3.67 X10*6/uL (4.60-5.80); Red Cell Distribution Width 14.2 % (11.0-16.0); White Blood Count 8.8 X10*3/uL (4.8-10.8)
[2022-05-04 23:15] LABS: Anion Gap 13 (12-20); Blood Urea Nitrogen 23 mg/dL (9-16); Calcium 9.1 mg/dL (8.4-10.2); Carbon Dioxide 25 mmol/L (22-29); Chloride 113 mmol/L (96-108); Creatinine Clr Calc Pharmacy 54.9; Estimated Glomerular Filt Rate > 60; Glucose Random 152 mg/dL (60-115); Potassium 3.9 mmol/L (3.3-5.1); Sodium 147 mmol/L (135-145)
[2022-05-04 23:16] LABS: Influenza A PCR NEGATIVE (Negative); Influenza B PCR NEGATIVE (Negative); Resp Syncy Virus RNA Qual PCR NEGATIVE (Negative); SARS COV2 PCR INHOUSE NEGATIVE (Negative)
--- NOTE | 2022-05-04 23:48 | PM.EVENT ---
Event Note Date of Service: 05/04/22 Event Note: Was asked to evaluate the patient for possible admission. Reviewed vital signs and patient's labs. Creatinine is at baseline. Patient is satting 95% on room air and hemodynamically stable. Patient is not septic and does not meet inpatient criteria for IV antibiotics. Does have pneumonia on x-ray and can be discharged with p.o. antibiotics. Noted mildly elevated sodium at 147. Recommended IV fluid resuscitation in the ER and may consider repeating BMP prior to discharge. Time Spent With Patient Time: Total time managing care of this patient today ____ minutes.
--- OUTSIDE RECORDS SUMMARY | 2022-05-05 00:12 | XMS_ITS ---
:1955 Author Organization [facility] Address [address] [place] [address] Care Team Providers Name Role Phone Anthony Freedman Unavailable Unavailable PROBLEMS Type Condition ICD9-CM [id number] Onset Condition SNOMED Cod e Code Code Dates Status Problem History of Z86.010 Active 328386692 adenomatous polyp of colon Problem Encounter for Z12.11 Active 646839 004 screening for malignant neoplasm of colon Problem Constipation K59.00 Active 3028332 8 Problem Irregular bowel R19.8 Active 4447 82870 habits Problem Preprocedural Z01.818 Active 138462 [id number] examination ALLERGIES Substance Reaction Event Type Date Status Bactrim Unknown Drug Allergy Jan, Active ENCOUNTERS Encounter Location Date Diagnosis [address] Jan, [facility] [address] [place] [address] Jan, [facility] [address] [place] [address] [place] [address] Jan, Constipa tion K59.00 ; [facility] [address] [place], [place] Irregular bowel habits [address] R19.8 ; Encounte r for screening for ma lignant neoplasm of colo n Z12.11 ; History of adeno matous polyp of colon Z 86.010 and Preprocedural ex amination Z01.[address] Jul, [facility] [address] [place] [address] May, [facility] [address] [place] [address] [place] [address] 28 Mar, 2013 [facility] [address] [place] [address] [facility] [address] Apr, Colon ca ncer screening [facility] [address] [place] V76.51 ; [place] [address] adenomatous poly p of colon V12.72 ; Diarrhe a 787.91 and Weight loss 783.21 [facility] [address] June, [place] [phone] [facility] [address] Jan, [place] [phone] [facility] [address] Dec, [place] [phone] IMMUNIZATIONS Vaccine Route Administration Date Status Influenza Unknown Oct 24, 2019 Administered SOCIAL HISTORY Never Assessed REASON FOR REFERRAL FUNCTIONAL STATUS PLAN OF CARE Activity Details Follow Up prn Reason: Pending Test T4 (THYROXINE) Pending Test TSH (THYROID STIMULATING HOR RODO) Pending Test CBC w DIFF Pending Test CELIAC PANEL #10 Pending Test ENDOMYSIAL IGA Pending Test TRANSGLUTAMINASE AB IGA Pending Test TRANSGLUTAMINASE AB IGG Future/Pending Procedure COLONOSCOPY [id number] Future/Pending Procedure COLONOSCOPY [id number] VITAL SIGNS Weight 125 lbs 2020-02-06 Weight 118 lbs 2012-05-18 Height 65.50 in 2020-02-06 Height 65.50 in 2012-05-18 BMI 20.48 kg/m2 2020-02-06 BMI 19.34 kg/m2 2012-05-18 Temperature 97.7 degrees Fahrenheit 2020-02-06 Blood pressure systolic 000 mm Hg 2020-02-06 Blood pressure diastolic 00 mm Hg 2020-02-06 MEDICATIONS Medication Instructions Dosage Frequency Start End Duration Statu s Date Date LaMICtal 100 MG Orally bid 1 tablet 12h Acti ve Artificial Tear Active Fluticasone Inhalation bid 1 puff 12h Activ e Furoate-Vilantero l 100-25 MCG/INH Ativan 0.5 MG Orally Once at 1 tablet at Active HS and prn q12h bedtime as needed Albuterol Sulfate Inhalation every 1 puff as 4h Active 108 (90 Base) 4 hrs needed MCG/ACT Invega 12 mg Orally qam 1 tablet in Acti ve the morning PROzac 40 MG Orally qam 1 capsule Active Levothyroxine Orally qam 1 tablet in Act harmeet Sodium 25 MCG the morning on an empty stomach MiraLax Active Clozaril 50 MG Orally qhs uless 1 tablet Active miss dose 200 mg DDAVP Active Flaxseed Oil Active Triamcinolone Active Acetonide Prilosec 20 MG Orally Once a 1 capsule 24h A ctive day 30 minutes before morning meal PROCEDURES Procedure Date Ordered Result Body Site TOBACCO NON-USER Feb 06, 2020 BP SCR PRFRM RCMDD DEFIND SCR INTVL Feb 06, 2020 COLORECTAL CA SCREEN DOC REV May 18, 2012 DOC MEDS VERIFIED W/PT OR RE Feb 06, 2020 COLORECTAL CA SCREEN DOC REV Feb 06, 2020 AT LEAST 1 RX TRANSMIT ERX SYS May 18, 2012 RESULTS No Results REASON FOR VISIT hx polyps,screening, colonoscopy, patient presents today for screening colonoscopy, screening colonoscopy, cancelling procedue, Screening Colonoscopy, needs to R/S colon, bowel prep rx, COLON RECALL Insurance Providers [facility] Member Patient Patient Patient Patient Patient Subscriber Subscriber Subscriber Group Insurance Plan Plan Plan Plan ID Relationship Address Phone Name Date of ID Name Date of No Type Insurance Insurance Insurance Coverage to Subscriber Address Phone Name Dates MEDICAID [address] MEDICAID self [place] [id number] OF [facility] [id number] OF [facility] [id number] [address] MEDICARE [phone] MEDICARE self [place] [id number] [place] [address] [place] [address]
--- OUTSIDE RECORDS SUMMARY | 2022-05-05 00:12 | XMS_ITS ---
:1955 Author Care Team Providers Name Role Phone EWA LANDIN MD Primary Care Provider [phone] Allergies Code Code System Name Reaction Severity Status Onset NKDA ? Medications Name Status Start Date Stop Date ? ? clozapine 100 mg tablet Active ? Not avai lable clozapine 25 mg tablet Active ? Not avail able desmopressin 0.1 mg tablet Active ? Not a vailable fluoxetine 20 mg capsule Active ? Not jase ilable Invega 6 mg tablet,extended release Active ? Not available lamotrigine 100 mg tablet Active ? Not av ailable lamotrigine 25 mg tablet Active ? Not jase ilable levothyroxine 25 mcg tablet Active ? Not available lorazepam 0.5 mg tablet Active ? Not avai lable omeprazole 20 mg capsule,delayed release Active ? Not available Problems Name Status Onset Date Source ? Schizoaffective Disorder Active 12/22/2019 ? Procedures None recorded. Results Lab Results Date Name Specimen Result Interpretation Description Value Range Status Address ? 12/22/2019 SARS CoV 2 RNA ? Covid-19, [place] ? ? Final [facility] Reference (COVID-19), QL, L aboratories: [address], [address], [place] [place] Specimen Past Encounters None recorded. Social History None recorded. Vaccine List None recorded. Plan of Care Reminders Provider Appointments None recorded. ? ? Lab None recorded. ? ? Referral None recorded. ? ? Procedures None recorded. ? ? Surgeries None recorded. ? ? Imaging None recorded. ? ? Vitals Blood Pressure 110/62 mm[Hg]
[2022-05-05] MEDS: cefEPime HCl 1 GM in 0.9 % Sodium Chloride 50 ML IV (00:46)
[2022-05-05] MEDS: 0.9 % Sodium Chloride 1,000 ML 999 ML IV (00:47)
[2022-05-05 00:48] LABS: Lactic Acid 1.1 mmol/L (0.5-2.0)
[2022-05-05 00:54] VITALS: BP 109/61; PULSE 80; RESP 14; O2SAT 95
--- NOTE | 2022-05-05 01:57 | PC.NURSE ---
IV line removed. Pt tolerated well. Discharge instructions reviewed via telephone with Sean from [facility], . Pt to return to the [facility] via ambulance as pt is bed bound.
--- NOTE | 2022-05-05 02:07 | MHC.EDTECH ---
Shari called at [phone] for a bls transfer back to retirement,ETA within 30Mins RN aware
== END 2022-05-05 02:36 | disposition home or self-care (01) ==
PROVIDERS: Emergency Provider Emergency Medicine Emergency Medical Services
DX: J18.9 Pneumonia, unspecified organism (principal); Z20.822 Contact with and (suspected) exposure to COVID-19; Z20.828 Contact with and (suspected) exposure to other viral communicable diseases; R62.7 Adult failure to thrive; Z68.1 Body mass index [BMI] 19.9 or less, adult
CPT/HCPCS: 0241U; 36415; 71045; 80048; 83605; 85025; 87040; 92950; 96365; 99284; J0692

== ENCOUNTER → 2022-05-19 09:10 | Outpatient (BNVA) | payer MEDICARE, MEDICAID, SELFPAY | PROVIDERS: PCP Internal Medicine; Visit Provider Nurse Practitioner | DX: K21.9 Gastro-esophageal reflux disease without esophagitis (principal); K59.00 Constipation, unspecified; R62.7 Adult failure to thrive; Z68.1 Body mass index [BMI] 19.9 or less, adult | CPT/HCPCS: 99212 ==

== ENCOUNTER 2022-06-10 13:12 | Outpatient (RCR) | payer MEDICARE, MEDICAID, SELFPAY | END 2022-07-27 16:00 | disposition home or self-care (01) | LOC: HO.WCC 13:12 | PROVIDERS: PCP Internal Medicine; Visit Provider Surgery | DX: L89.323 Pressure ulcer of left buttock, stage 3 (principal); F20.9 Schizophrenia, unspecified | CPT/HCPCS: 11042; 97597; 99212 ==

== ENCOUNTER 2022-06-25 12:27 | Inpatient (IN) | payer MEDICARE, MEDICAID, SELFPAY ==
[2022-06-25] VITALS (7 sets, daily range): BP systolic 106–141; BP diastolic 64–73; PULSE 92–102; RESP 14–18; TEMP 36.7–39.5; O2SAT 94–98; BMI 17.4
--- NOTE | ~2022-06-25 | XR_ITS ---
EXAMINATION: XR CHEST CLINICAL INFORMATION: Follow-up aspiration pneumonia COMPARISON: CT chest 06/26/2022 TECHNIQUE: Frontal view of the chest was obtained. FINDINGS: The lungs are well-expanded and clear of acute pneumonic process. There is a right parahilar soft tissue density likely pneumonia. This was visualized on CT chest in the superior segment right lower lobe. Rest of lungs are clear. The heart size and pulmonary vascularity is normal. There is an old healed right posterior fifth rib fracture. XR/XR chest 1V IMPRESSION: 1. Right parahilar soft tissue density likely pneumonia. This was visualized on the CT chest exam 06/26/2022. 2. Old healed right posterior fifth rib fracture.
--- NOTE | ~2022-06-25 | XR_ITS ---
EXAMINATION: XR CHEST CLINICAL INFORMATION: Cough. COMPARISON: 05/04/2022 and 10/11/2021 chest radiographs. TECHNIQUE: Frontal view of the chest was obtained. FINDINGS: Mild coarsened markings are seen in the lungs bilaterally, right greater than left with similar distribution. Old healed right rib fractures are again noted. The heart and mediastinal structures are unremarkable. XR/XR chest 1V IMPRESSION: Chronic changes without significant change. No acute cardiopulmonary process.
--- NOTE | ~2022-06-25 | CT_ITS ---
EXAMINATION: CT HEAD WITHOUT CONTRAST CLINICAL INFORMATION: Encephalopathy, unclear etiology COMPARISON: 10/10/2021 TECHNIQUE: Contiguous axial imaging was performed from the skull base to vertex without intravenous administration of contrast. This CT examination was performed using dose optimization techniques as appropriate, variously including the following: *Automated exposure control *Adjustment of mA and/or kV according to patient size (this includes techniques or standardized protocols for targeted exams where dose is matched to indication/reason for exam; i.e. extremities or head) *Use of iterative reconstruction technique DLP: 749 mGy-cm FINDINGS: CT examination again shows involutional changes with atrophy and ventriculomegaly, with the volume loss most prominent in the frontal lobes, though not significantly changed since 10/10/2021. No acute hemorrhage, mass effect or shift is detected. In the posterior fossa, the brainstem and cerebellum image normally. The bony calvarium, mastoid air cells, paranasal sinuses and orbits are unremarkable. CT/CT head/brain wo IV con IMPRESSION: 1. No acute hemorrhage, mass effect or shift and no significant change since 10/10/2021. 2. Atrophy and ventriculomegaly, with volume loss most prominent in the frontal lobes, unchanged.
--- NOTE | ~2022-06-25 | CT_ITS ---
EXAMINATION: CT CHEST WITHOUT CONTRAST CLINICAL INFORMATION: Fever, rule out pneumonia COMPARISON: 06/16/2018 TECHNIQUE: Multidetector volumetric CT imaging of the chest was done. Axial MIP volume rendering provided. Sagittal and coronal reformatted images were obtained. This CT examination was performed using dose optimization techniques as appropriate, variously including the following: *Automated exposure control *Adjustment of mA and/or kV according to patient size (this includes techniques or standardized protocols for targeted exams where dose is matched to indication/reason for exam; i.e. extremities or head) *Use of iterative reconstruction technique DLP: 212 mGy-cm FINDINGS: SOFTWARE SYSTEMS ARCHITECT: Chronic airspace opacities LUNGS: Extensive masslike consolidation in the superior segment of the right lower lobe has become progressively more confluent since CT of 06/16/2018. The area of consolidation measures approximately 7.8 cm wide by 3.4 cm AP, and is considerably more confluent than on the prior CT. Consolidation in the superior segment of the left lower lobe has improved. Coarse opacities in the subpleural right upper lobe and middle lobe are not significantly changed. New patchy opacities are evident in the right posterior costophrenic sulcus. Atelectasis in the medial basal left lower lobe is unchanged, with an appearance suggesting round atelectasis. The trachea and major bronchi are patent. MEDIASTINUM: A few borderline size mediastinal lymph nodes are again evident, including a 13 x 9 mm subcarinal node and 9 mm in short axis right tracheobronchial node and small nodes in the prevascular region and both merlin. CORONARY ARTERY CALCIFICATION: None visualized on this study. PLEURA: There is no pleural effusion. No pleural mass or thickening. AXILLA: No lymphadenopathy. UPPER ABDOMEN: The esophagus is distended throughout its course to the esophagogastric junction. There is also a large left lateral esophageal diverticulum at the level of the aorticopulmonary window. OSSEOUS STRUCTURES: Mild compression fractures in several contiguous upper thoracic vertebrae are not significantly changed. CT/CT chest wo IV con IMPRESSION: 1. Thoracic CT demonstrates increasing confluence of masslike consolidation in the superior segment of the right lower lobe and new patchy airspace opacities in the posterior right costophrenic sulcus. 2. Improved but persistent consolidation in the left lower lobe. 3. Distended esophagus with a large left lateral esophageal diverticulum. Findings suggest esophageal dysmotility, perhaps achalasia, raising aspiration pneumonitis as the etiology of the patient's bilateral pulmonary opacities. Fleischner guidelines were followed.
--- NOTE | ~2022-06-25 | FL_ITS ---
EXAMINATION: MODIFIED BARIUM SWALLOW CLINICAL INFORMATION: Aspiration pneumonia. COMPARISON: None available. TECHNIQUE: Routine modified barium swallow was performed in sitting lateral fluoroscopy position with oral administration of various consistencies of barium by speech therapist. FINDINGS: On oral administration of thin barium there is danielle laryngeal aspiration seen. On oral administration of barium pudding and cookie coated with barium there is normal oral mastication and propagation of bolus from the oral cavity through the pharynx and esophagus. FLUOROSCOPY TIME: 1.8 minutes DOSE AREA PRODUCT: 1.704 uGy-m2 (microgray-meter squared) FL/FL barium swallow modified IMPRESSION: Danielle laryngeal aspiration with thin barium. There is normal propagation of bolus barium coated pudding and cookie coated barium without laryngeal penetration or aspiration.
--- NOTE | 2022-06-25 13:11 | ECG_ITS ---
Test Reason : TACHYCARDIA,SOB Blood Pressure : / mmHG Vent. Rate : 098 BPM Atrial Rate : 098 BPM P-R Int : 136 ms QRS Dur : 076 ms QT Int : 334 ms P-R-T Axes : 050 065 059 degrees QTc Int : 426 ms Normal sinus rhythm Normal ECG When compared with ECG of 19-OCT-2021 10:17, No significant change was found Referred By: Diana Bueno Electronically Signed By:PAMELLA OROZCO MD
--- NOTE | 2022-06-25 13:36 | ED.GENADULT ---
HPI - General Adult General Chief complaint: Upper Respiratory Symptoms Stated complaint: SOB 95% RA FROM [facility] PER EMS Time Seen by Provider: 06/25/22 13:10 Source: EMS and other Mode of arrival: EMS History of Present Illness HPI narrative: 67-year-old male with baseline schizophrenia and is a poor historian arrives via EMS from the senior living where the staff there said that he started with a dry cough this morning which they felt was similar to when he last had pneumonia in the past. Patient is afebrile here and is alert and oriented to self which is baseline. Related Data Home Medications Medication Instructions Recorded Confirmed clozapine 100 mg tablet 200 mg PO BEDTIME 11/27/20 06/09/22 fluoxetine 20 mg capsule 40 mg PO DAILY 11/27/20 06/09/22 polyvinyl alcohol 1.4 % eye drops 1 drp ophthalmic (eye) QID 07/03/21 06/09/22 (Artificial Tears (polyvinyl alcohol)) clozapine 25 mg tablet 50 mg PO BEDTIME 08/13/21 06/09/22 triamcinolone acetonide 0.1 % 1 appl topical BID 10/10/21 06/09/22 topical cream lorazepam 0.5 mg tablet 0.5 mg PO Q6H PRN Anxiety 10/19/21 06/09/22 polyethylene glycol 3350 17 17 g PO BID PRN Constipation 10/19/21 06/09/22 gram/dose oral powder acetaminophen 650 mg 650 mg PO Q12H 05/19/22 06/09/22 tablet,extended release (Tylenol 8 Hour) albuterol sulfate 90 mcg/actuation 1 inh inhalation QID 05/19/22 06/09/22 aerosol inhaler (Ventolin HFA) clozapine 25 mg tablet 12.5 mg PO DAILY 05/19/22 06/09/22 flaxseed oil 1,000 mg capsule 1,000 mg PO DAILY 05/19/22 06/09/22 Previous Rx's Medication Instructions Recorded pull ups small #100 ea 06/05/20 desmopressin 0.1 mg tablet 0.1 mg PO BID 90 days #180 tabs 09/30/21 right AFO #1 ea 11/24/21 levetiracetam 500 mg tablet 500 mg PO BID #60 tabs 02/02/22 ascorbic acid (vitamin C) 500 mg 500 mg PO DAILY #90 tabs 03/12/22 tablet (Vitamin C) food supplemt, lactose-reduced 1 ea PO .QD 30 days #30 bottles 03/24/22 0.04 gram-1 kcal/mL oral liquid (Boost) linaclotide 290 mcg capsule 290 mcg PO DAILY #30 caps 05/19/22 (Linzess) omeprazole 20 mg capsule,delayed 20 mg PO BID@0630,1630 #60 caps 05/19/22 release levothyroxine 25 mcg tablet 25 mcg PO DAILY #30 tabs 06/02/22 sennosides 8.6 mg capsule (senna) 17.2 mg PO BEDTIME #60 caps 06/04/22 ondansetron HCl 8 mg tablet 8 mg PO BID PRN nausea and 06/11/22 vomiting #20 tabs Allergies Allergy/AdvReac Type Severity Reaction Status Date / Time clindamycin Allergy Unknown Unknown Verified 06/09/22 10:12 Sulfa (Sulfonamide Allergy Unknown UNKNOWN Verified 06/09/22 10:12 Antibiotics) [SULFA(SULFONAMIDE ANTIBIOTICS)] sulfamethoxazole Allergy Unknown Unknown Verified 06/09/22 10:12 [From Bactrim] trimethoprim [From Bactrim] Allergy Unknown Unknown Verified 06/09/22 10:12 Review of Systems Review of Systems: Pertinent positives and negatives as stated in HPI [facility] Past Medical History Source: nursing notes reviewed Medical History Adult failure to thrive Anemia Anxiety Asthma Ataxic gait Ataxic gait COPD (chronic obstructive pulmonary disease) COVID-19 Depression GERD (gastroesophageal reflux disease) Hypothyroid Impaired glucose tolerance Mentally challenged Metabolic encephalopathy MVP (mitral valve prolapse) Oropharyngeal dysphagia Paraparesis Pneumonia Schizophrenia Tracheomalacia Tubular adenoma of colon Surgical History History of esophagogastroduodenoscopy (EGD) Hx of colonoscopy S/P tracheoplasty Family History Family History Family/Other Unknown family medical history Father Hypertension Mother Unknown family medical history Brother No problems noted. Sister No problems noted. Social History Social History Household Members: Other Household Members Other:: Resides in [facility] Housing: Other Housing Other:: senior living Are you a primary manager critical care unit to a significant other at home: No Unable to assess alcohol history related to: Unable to respond and Unknown Alcohol intake: unknown Patient Tobacco Use Status: Tobacco use Unknown e-Cigarette/Vaping Use: Never Used Second Hand Smoke Exposure: No Advance Directives: Yes Advance Directives on File: Yes Advance Directives Date on File: 11/28/20 service: No Current occupational status: disabled Cognitive needs: Yes Hearing needs: No Vision needs: No Physical Exam ED Vital Signs: Vital Signs - 24 hr 06/25/22 12:33 06/25/22 12:42 06/25/22 12:42 Temperature 98.1 F 98.4 F 98.4 F Pulse Rate 102 H 102 H 102 H Respiratory Rate 14 18 18 Blood Pressure 141/73 H 141/73 H 141/73 H Pulse Oximetry 97 98 98 Oxygen Delivery Method Room Air Room Air Room Air 06/25/22 15:26 06/25/22 15:27 06/25/22 17:09 Temperature 103.1 F H 102.7 F H Pulse Rate 95 Respiratory Rate 17 Blood Pressure 116/69 Pulse Oximetry 96 Oxygen Delivery Method Room Air BMI result Body Mass Index 17.4 VITAL SIGNS: Reviewed. GENERAL: Cachectic, in no acute distress. HEAD: Normocephalic/atraumatic EYES: PERRLA, EOMI EARS: Ext canals without abnormality, TMs non-bulging and non-erythematous NOSE: Nares patent bilateral OROPHARYNX: no oral lesions noted, posterior pharynx clear and non-erythematous without noted tonsillar enlargement/erythema/exudates NECK: Supple, no adenopathy LUNGS: Normal breath sounds. No adventitious sounds or accessory muscle use. SpO2<98> CARDIOVASCULAR: Regular rate and rhythm without noted murmurs, no JVD or lower extremity edema. ABDOMEN: Soft, non-tender, non-distended with bowel sounds. MUSCULOSKELETAL: No tenderness, deformities, or effusions noted on gross inspection. EXTREMITIES: No cyanosis, clubbing or edema. SKIN: Inspection of the skin reveals no rashes NEUROLOGIC: Alert and oriented x 1. Medications Administered Discontinued Medications Generic Name Dose Route Start Last Admin Trade Name Freq PRN Reason Stop Dose Admin Acetaminophen 650 mg 06/25/22 15:36 06/25/22 15:58 Acetaminophen Supp 650 Mg Supp.Rect KS 06/25/22 15:37 650 mg ONCE ONE Administration Sodium Chloride 500 mls @ 500 mls/hr 06/25/22 14:45 06/25/22 16:47 Ns IV 06/25/22 15:44 Infused .Q1H LEN Infusion Piperacillin Sod/Tazobactam 50 mls @ 100 mls/hr 06/25/22 15:35 06/25/22 16:47 Sod 3.375 gm/ Sodium Chloride IV 06/25/22 16:04 Infused ONCE ONE Infusion Medical Decision Making Medical Decision Making [facility] Narrative: 1338: 67-year-old male arrives via EMS for staff concerns regarding pneumonia, however patient is not noted to be febrile or hypotensive, he is noted to have some mild tachycardia but feel this may be secondary to poor p.o. intake. - labs, EKG, UA, VBG/BNP, lactic acid, BCx, abx 1725: Reviewed all investigations and my interpretation is as patient has sepsis secondary to urinary tract infection and has received 500 cc of IV fluids, antibiotics and is otherwise hemodynamically stable. Patient is also received rectal Tylenol and repeat temperature is noted to be trending downward. Differential Diagnosis Please see the discussion above Consult Healthcare Provider Management of the patient was discussed with: Hospitalist 1722: Discussed with inpatient hospitalist who accepts admission. Lab Data Please see the discussion above 06/25/22 14:22 06/25/22 14:22 Labs: Lab Results 06/25/22 06/25/22 06/25/22 Range/Units 14:22 14:22 14:22 WBC 13.1 H (4.8-10.8) X10*3/uL RBC 4.02 L (4.60-5.80) X10*6/uL Hgb 12.2 L (14.0-18.0) g/dl Hct 35.8 L (42.0-52.0) % MCV 89.1 (80.0-98.0) fL MCH 30.3 (27.0-33.0) pg MCHC 34.1 (31.0-36.0) g/dl RDW 14.4 (11.0-16.0) % Plt Count 303 (160-400) X10*3/uL MPV 9.9 (9.4-12.4) fL Immature Gran % (Auto) 0.4 (0.0-0.4) % Neut % (Auto) 95.0 H (45-73) % Lymph % (Auto) 1.4 L (20-40) % Motley % (Auto) 2.5 (2-11) % Eos % (Auto) 0.3 (0-4) % Baso % (Auto) 0.4 (0-2) % Lymph # (Auto) 0.2 L (1.2-4.9) X10*3/uL Motley # (Auto) 0.3 (0.1-1.2) X10*3/uL Eos # (Auto) 0.0 (0.0-0.4) X10*3/uL Baso # (Auto) 0.1 (0.0-0.2) X10*3/uL Abs Immat Gran (auto) 0.05 H (0.00-0.03) X10*3/uL Absolute Neuts (auto) 12.4 H (2.0-8.3) x10*3/uL Absolute Nucleated RBC 0.000 (0.0-0.012) X10*3/uL Nucleated RBC % (auto) 0.0 (0.0-0.2) /100WBC Smear Tech's Comments VERIFIED PT 12.3 (10.0-13.1) SEC INR 1.1 (0.9-1.1) VBG pH (7.32-7.43) VBG pCO2 mmHg VBG pO2 mmHg VBG HCO3 (22-26) mmol/L VBG O2 Saturation % VBG Base Excess mmol/L Sodium 135 (135-145) mmol/L Potassium 4.4 (3.3-5.1) mmol/L Chloride 101 (96-108) mmol/L Carbon Dioxide 27 (22-29) mmol/L Anion Gap 11 L (12-20) BUN 13 (9-16) mg/dL Creatinine 0.84 (0.5-1.4) mg/dL Estim Creat Clear Calc 53.0 Estimated GFR > 60 Random Glucose 103 (60-115) mg/dL Lactic Acid (0.5-2.0) mmol/L Calcium 9.9 D (8.4-10.2) mg/dL Total Bilirubin 0.4 (0.0-1.0) mg/dL AST 16 (5-37) U/L ALT 15 (0-40) U/L Alkaline Phosphatase 78 (39-117) U/L Troponin I High Sens (<3.5-35.0) ng/L B-Natriuretic Peptide (<100) pg/mL Total Protein 6.5 (6.5-8.0) g/dL Albumin 4.0 (3.5-5.0) g/dL Urine Color Urine Appearance Urine pH (5.0-9.0) Ur Specific [place] (1.005-1.025) Urine Protein (Neg-Trace) mg/dL Urine Glucose (UA) (Negative) mg/dL Urine Ketones (Negative) mg/dL Urine Blood (Negative) Urine Nitrite (Negative) Ur Leukocyte Esterase (Negative) Urine RBC (0-2) /HPF Urine WBC (0-5) /HPF Ur Squamous Epith Cells (0-2) /HPF Urine Bacteria (None Seen) Hyaline Casts (0-2) /LPF 06/25/22 06/25/22 06/25/22 Range/Units 14:22 14:22 14:30 WBC (4.8-10.8) X10*3/uL RBC (4.60-5.80) X10*6/uL Hgb (14.0-18.0) g/dl Hct (42.0-52.0) % MCV (80.0-98.0) fL MCH (27.0-33.0) pg MCHC (31.0-36.0) g/dl RDW (11.0-16.0) % Plt Count (160-400) X10*3/uL MPV (9.4-12.4) fL Immature Gran % (Auto) (0.0-0.4) % Neut % (Auto) (45-73) % Lymph % (Auto) (20-40) % Motley % (Auto) (2-11) % Eos % (Auto) (0-4) % Baso % (Auto) (0-2) % Lymph # (Auto) (1.2-4.9) X10*3/uL Motley # (Auto) (0.1-1.2) X10*3/uL Eos # (Auto) (0.0-0.4) X10*3/uL Baso # (Auto) (0.0-0.2) X10*3/uL Abs Immat Gran (auto) (0.00-0.03) X10*3/uL Absolute Neuts (auto) (2.0-8.3) x10*3/uL Absolute Nucleated RBC (0.0-0.012) X10*3/uL Nucleated RBC % (auto) (0.0-0.2) /100WBC Smear Tech's Comments PT (10.0-13.1) SEC INR (0.9-1.1) VBG pH 7.47 H (7.32-7.43) VBG pCO2 36 mmHg VBG pO2 40 mmHg VBG HCO3 27 H (22-26) mmol/L VBG O2 Saturation 64.0 % VBG Base Excess 3.8 mmol/L Sodium (135-145) mmol/L Potassium (3.3-5.1) mmol/L Chloride (96-108) mmol/L Carbon Dioxide (22-29) mmol/L Anion Gap (12-20) BUN (9-16) mg/dL Creatinine (0.5-1.4) mg/dL Estim Creat Clear Calc Estimated GFR Random Glucose (60-115) mg/dL Lactic Acid (0.5-2.0) mmol/L Calcium (8.4-10.2) mg/dL Total Bilirubin (0.0-1.0) mg/dL AST (5-37) U/L ALT (0-40) U/L Alkaline Phosphatase (39-117) U/L Troponin I High Sens < 2.7 (<3.5-35.0) ng/L B-Natriuretic Peptide 27 (<100) pg/mL Total Protein (6.5-8.0) g/dL Albumin (3.5-5.0) g/dL Urine Color Urine Appearance Urine pH (5.0-9.0) Ur Specific [place] (1.005-1.025) Urine Protein (Neg-Trace) mg/dL Urine Glucose (UA) (Negative) mg/dL Urine Ketones (Negative) mg/dL Urine Blood (Negative) Urine Nitrite (Negative) Ur Leukocyte Esterase (Negative) Urine RBC (0-2) /HPF Urine WBC (0-5) /HPF Ur Squamous Epith Cells (0-2) /HPF Urine Bacteria (None Seen) Hyaline Casts (0-2) /LPF 06/25/22 06/25/22 Range/Units 15:10 16:59 WBC (4.8-10.8) X10*3/uL RBC (4.60-5.80) X10*6/uL Hgb (14.0-18.0) g/dl Hct (42.0-52.0) % MCV (80.0-98.0) fL MCH (27.0-33.0) pg MCHC (31.0-36.0) g/dl RDW (11.0-16.0) % Plt Count (160-400) X10*3/uL MPV (9.4-12.4) fL Immature Gran % (Auto) (0.0-0.4) % Neut % (Auto) (45-73) % Lymph % (Auto) (20-40) % Motley % (Auto) (2-11) % Eos % (Auto) (0-4) % Baso % (Auto) (0-2) % Lymph # (Auto) (1.2-4.9) X10*3/uL Motley # (Auto) (0.1-1.2) X10*3/uL Eos # (Auto) (0.0-0.4) X10*3/uL Baso # (Auto) (0.0-0.2) X10*3/uL Abs Immat Gran (auto) (0.00-0.03) X10*3/uL Absolute Neuts (auto) (2.0-8.3) x10*3/uL Absolute Nucleated RBC (0.0-0.012) X10*3/uL Nucleated RBC % (auto) (0.0-0.2) /100WBC Smear Tech's Comments PT (10.0-13.1) SEC INR (0.9-1.1) VBG pH (7.32-7.43) VBG pCO2 mmHg VBG pO2 mmHg VBG HCO3 (22-26) mmol/L VBG O2 Saturation % VBG Base Excess mmol/L Sodium (135-145) mmol/L Potassium (3.3-5.1) mmol/L Chloride (96-108) mmol/L Carbon Dioxide (22-29) mmol/L Anion Gap (12-20) BUN (9-16) mg/dL Creatinine (0.5-1.4) mg/dL Estim Creat Clear Calc Estimated GFR Random Glucose (60-115) mg/dL Lactic Acid 0.8 (0.5-2.0) mmol/L Calcium (8.4-10.2) mg/dL Total Bilirubin (0.0-1.0) mg/dL AST (5-37) U/L ALT (0-40) U/L Alkaline Phosphatase (39-117) U/L Troponin I High Sens (<3.5-35.0) ng/L B-Natriuretic Peptide (<100) pg/mL Total Protein (6.5-8.0) g/dL Albumin (3.5-5.0) g/dL Urine Color Yellow Urine Appearance Clear Urine pH 8.5 (5.0-9.0) Ur Specific [place] 1.020 (1.005-1.025) Urine Protein Trace (Neg-Trace) mg/dL Urine Glucose (UA) Negative (Negative) mg/dL Urine Ketones Trace (Negative) mg/dL Urine Blood Negative (Negative) Urine Nitrite Positive H (Negative) Ur Leukocyte Esterase Trace H (Negative) Urine RBC 3-5 H (0-2) /HPF Urine WBC 0-5 (0-5) /HPF Ur Squamous Epith Cells 0-2 (0-2) /HPF Urine Bacteria 4+ (None Seen) Hyaline Casts 0-2 (0-2) /LPF Independent Interpretation I performed an independent interpretation of an: EKG Interpretation: Normal sinus rhythm, HR-98, no STEMI, KS/QRS/QTC is within normal limits. Radiology Impression Radiologist Impression: My interpretation is in agreement with radiology's impression of the imaging studies. External Record Review External record reviewed: Outpatient record and Prior outpatient labs Discharge Plan Discharge Clinical Impression: Sepsis, Acute UTI Patient Disposition: Admitted As Inpatient Prescriptions: No Action desmopressin 0.1 mg tablet 0.1 mg PO BID 90 Days Qty: 180 1RF (DME) right AFO See Rx Instructions .Route .MEDSUPPLY Qty: 1 0RF Rx Instructions: As directed levetiracetam 500 mg tablet 500 mg PO BID Qty: 60 5RF ascorbic acid (vitamin C) [Vitamin C] 500 mg tablet 500 mg PO DAILY Qty: 90 3RF Boost 0.04 gram- 1 kcal/mL liquid 1 ea PO .QD 30 Days Qty: 30 11RF levothyroxine 25 mcg tablet 25 mcg PO DAILY Qty: 30 0RF senna 8.6 mg capsule 17.2 mg PO BEDTIME Qty: 60 6RF ondansetron HCl 8 mg tablet 8 mg PO BID PRN (Reason: nausea and vomiting) Qty: 20 0RF fluoxetine 20 mg capsule 40 mg PO DAILY lorazepam 0.5 mg tablet 0.5 mg PO Q6H PRN (Reason: Anxiety) polyethylene glycol 3350 17 gram/dose powder 17 g PO BID PRN (Reason: Constipation) triamcinolone acetonide 0.1 % Cream 1 appl TOPICAL BID (DME) pull ups small See Rx Instructions .Route .MEDSUPPLY Qty: 100 11RF Rx Instructions: As directed clozapine 100 mg tablet 200 mg PO BEDTIME clozapine 25 mg tablet 50 mg PO BEDTIME polyvinyl alcohol [Artificial Tears (polyvin alc)] 1.4 % drops 1 drp ophthalmic (eye) QID Rx Instructions: 1 drop in both eyes acetaminophen [Tylenol 8 Hour] 650 mg tablet extended release 650 mg PO Q12H flaxseed oil 1,000 mg capsule 1,000 mg PO DAILY Rx Instructions: administer with a meal clozapine 25 mg tablet 12.5 mg PO DAILY albuterol sulfate [Ventolin HFA] 90 mcg/actuation HFA aerosol inhaler 1 inh inhalation QID Linzess 290 mcg capsule 290 mcg PO DAILY Qty: 30 6RF omeprazole 20 mg capsule,delayed release(DR/EC) 20 mg PO BID@0630,1630 Qty: 60 6RF
[2022-06-25 14:37] LABS: Basophils Absolute Auto 0.1 X10*3/uL (0.0-0.2); Basophils Percent Auto 0.4 % (0-2); Eosinophils Percent Auto 0.3 % (0-4); Hematocrit 35.8 % (42.0-52.0); Hemoglobin 12.2 g/dl (14.0-18.0); Imm Gran Abs Auto 0.05 X10*3/uL (0.00-0.03); Imm Gran Pct Auto 0.4 % (0.0-0.4); Lymphocytes Absolute Auto 0.2 X10*3/uL (1.2-4.9); Lymphocytes Percent Auto 1.4 % (20-40); MANUAL DIFF FLAG SCAN; Mean Corpuscular HGB Conc 34.1 g/dl (31.0-36.0); Mean Corpuscular Hemoglobin 30.3 pg (27.0-33.0); Mean Corpuscular Volume 89.1 fL (80.0-98.0); Mean Platelet Volume 9.9 fL (9.4-12.4); Monocytes Absolute Auto 0.3 X10*3/uL (0.1-1.2); Monocytes Percent Auto 2.5 % (2-11); Neutrophils Absolute Auto 12.4 x10*3/uL (2.0-8.3); Platelet Count 303 X10*3/uL (160-400); Red Blood Count 4.02 X10*6/uL (4.60-5.80); Red Cell Distribution Width 14.4 % (11.0-16.0); SCAN SMEAR FLAG 1; White Blood Count 13.1 X10*3/uL (4.8-10.8)
[2022-06-25 14:42] LABS: INTERNATIONAL NORM RATIO 1.1 (0.9-1.1); Prothrombin Time 12.3 SEC (10.0-13.1)
[2022-06-25 14:51] LABS: Alanine Aminotransferase 15 U/L (0-40); Alkaline Phosphatase 78 U/L (39-117); Anion Gap 11 (12-20); Aspartate Amino Transferase 16 U/L (5-37); Bilirubin Total 0.4 mg/dL (0.0-1.0); Blood Urea Nitrogen 13 mg/dL (9-16); Calcium 9.9 mg/dL (8.4-10.2); Carbon Dioxide 27 mmol/L (22-29); Chloride 101 mmol/L (96-108); Estimated Glomerular Filt Rate > 60; Glucose Random 103 mg/dL (60-115); Potassium 4.4 mmol/L (3.3-5.1); Sodium 135 mmol/L (135-145); Total Protein 6.5 g/dL (6.5-8.0)
[2022-06-25 14:56] LABS: B Type Natriuretic Peptide 27 pg/mL (<100)
[2022-06-25 14:59] LABS: SLIDE REVIEW VERIFIED
[2022-06-25 15:03] LABS: Troponin-I High Sensitivity < 2.7 ng/L (<3.5-35.0)
[2022-06-25 15:08] LABS: VBG Base Excess 3.8 mmol/L; VBG HCO3 27 mmol/L (22-26); VBG pCO2 36 mmHg; VBG pH 7.47 (7.32-7.43); VBG pO2 40 mmHg
[2022-06-25 15:09] LABS: Venous Blood Gas Refer to POC result
[2022-06-25 15:33] LABS: Lactic Acid 0.8 mmol/L (0.5-2.0)
[2022-06-25] MEDS: 0.9 % Sodium Chloride 500 ML IV (15:53)
[2022-06-25] MEDS: Acetaminophen Supp 650 MG SUPP.RECT PR (15:58)
[2022-06-25] MEDS: Piperacillin Sodium/Tazobactam 3.375 GM in 0.9 % Sodium Chloride 50 ML IV (15:58)
--- NOTE | 2022-06-25 16:16 | MHC.EDTECH ---
t/w changed pt with help of rn at 1530. pt found with double briefs on, extremely soiled. notified. pt cleaned and repositioned.
[2022-06-25 17:15] LABS: Appearance Urine Clear; Color Urine Yellow; Glucose Urine UA Negative (Negative); Leukocyte Esterase Urine Trace (Negative); Nitrite Urine Positive (Negative); PH 8.5 (5.0-9.0); UMIC TRIGGER UACC YES; Urine Blood Negative (Negative); Urine Ketones Trace mg/dL (Negative); Urine Protein Trace mg/dL (Neg-Trace)
[2022-06-25 17:21] LABS: WBC Urine 0-5 /HPF (0-5)
[2022-06-25 17:22] LABS: Bacteria Urine 4+ (None Seen); Hyaline Casts Urine 0-2 /LPF (0-2); Squamous Epithelial Cell Urine 0-2 /HPF (0-2); UACC Culture Trigger YES
--- NOTE | 2022-06-25 17:37 | PC.NURSE ---
pt alert to self and responds with prompting and one word answers/repetitive phrases such as I'm not gonna make it or I'm gonna get in trouble . iv placed, labs drawn, urine sample obtained, pt cleaned up and changed, and medicated per mar. pt in no apparent distress melissa. fever coming down. wctm.
--- NOTE | 2022-06-25 18:27 | P.HPHOSP_ITS ---
History of Present Illness Date of Service: 06/25/22 Attending physician on admission: Arin Rebollar Chief Complaint: Cough, fever Pt is a 67-year-old male with a PMH significant for?hypothyroidism, chronic constipation, GERD, normocytic anemia, hx of failure to thrive, and schizophrenia who presents to the ED via EMS from [facility] for evaluation of possible pneumonia. Staff at facility said he had a dry cough that was similar to when he was diagnosed with pneumonia in the past. At baseline pt is alert to self only, but at time of interview patient could not provide or respond to name . Patient does not appear to be in any acute distress, and no cough is appreciated during interview. HPI unable to be obtained due to patient's mentation. In the ED patient was febrile up to 103.1, tachycardic up to 102, mildly hypertensive up to 141/73, and satting at 98% on RA. Labs were significant for leukocytosis of 13.1, stable anemia of 12.2/35.8. Lactic acid WNL at 0.8 Electrolytes normal. Renal function normal. Hepatic function normal. Troponin, BNP negative. UA positive for UTI. CXR showed no acute cardiopulmonary process. EKG demonstrated normal sinus rhythm with no evidence of ST elevations or depressions. Pt was treated with acetaminophen, IVF, and Zosyn. Pt will be admitted to the hospital for treatment and further evaluation of urosepsis with IVF and IV antibiotics. Review of Systems Review of Systems: Unable to obtain due to patient's mentation [facility] Medical History Adult failure to thrive Anemia Anxiety Asthma Ataxic gait Ataxic gait COPD (chronic obstructive pulmonary disease) COVID-19 Depression GERD (gastroesophageal reflux disease) Hypothyroid Impaired glucose tolerance Mentally challenged Metabolic encephalopathy MVP (mitral valve prolapse) Oropharyngeal dysphagia Paraparesis Pneumonia Schizophrenia Tracheomalacia Tubular adenoma of colon Family History Family/Other Unknown family medical history Father Hypertension Mother Unknown family medical history Brother No problems noted. Sister No problems noted. Surgical History History of esophagogastroduodenoscopy (EGD) Hx of colonoscopy S/P tracheoplasty Social History Household Members: Other Household Members Other:: Resides in Snf Housing: Other Housing Other:: [facility] Are you a primary critical care paramedic to a significant other at home: No Unable to assess alcohol history related to: Unable to respond and Unknown Alcohol intake: never Patient Tobacco Use Status: Never used Tobacco Smoked in Last 30 Days: No e-Cigarette/Vaping Use: Never Used Second Hand Smoke Exposure: No Use of substances other than those prescribed or required for medical reasons: No Advance Directives: Yes Advance Directives on File: Yes Advance Directives Date on File: 11/28/20 service: No Current occupational status: disabled Cognitive needs: Yes Hearing needs: No Vision needs: No Meds Allergies Allergy/AdvReac Type Severity Reaction Status Date / Time clindamycin Allergy Unknown Unknown Verified 06/09/22 10:12 Sulfa (Sulfonamide Allergy Unknown UNKNOWN Verified 06/09/22 10:12 Antibiotics) [SULFA(SULFONAMIDE ANTIBIOTICS)] sulfamethoxazole Allergy Unknown Unknown Verified 06/09/22 10:12 [From Bactrim] trimethoprim [From Bactrim] Allergy Unknown Unknown Verified 06/09/22 10:12 Active Medications: Current Medications Pharmacy Consult (Consult Rx Perform Med Rec) 1 each MISCELLANE ONCE PRN PRN Reason: Consult order Home Medications Medication Instructions Recorded Confirmed Last Taken Type clozapine 100 mg tablet 200 mg PO BEDTIME 11/27/20 06/25/22 06/24/22 History fluoxetine 20 mg capsule 40 mg PO DAILY 11/27/20 06/25/22 06/25/22 History clozapine 25 mg tablet 50 mg PO BEDTIME 08/13/21 06/25/22 06/24/22 History triamcinolone acetonide 0.1 % 1 appl topical BID 10/10/21 06/25/22 10/10/21 History topical cream lorazepam 0.5 mg tablet 0.5 mg PO BEDTIME 10/19/21 06/25/22 Unknown History polyethylene glycol 3350 17 17 g PO BID PRN Constipation 10/19/21 06/25/22 Unknown History gram/dose oral powder acetaminophen 650 mg 650 mg PO Q6H PRN PAIN/FEVER 05/19/22 06/25/22 Unknown History tablet,extended release (Tylenol 8 Hour) clozapine 25 mg tablet 25 mg PO DAILY 05/19/22 06/25/22 06/25/22 History flaxseed oil 1,000 mg capsule 1,000 mg PO DAILY 05/19/22 06/25/22 06/25/22 History propylene glycol 1 %-glycerin 0.3 1 drp ophthalmic (eye) Q2H PRN Dry 06/25/22 06/25/22 Unknown History % eye drops (Artificial Tears Eye(S) (glycerin-peg)) propylene glycol 1 %-glycerin 0.3 1 drp ophthalmic (eye) QID 06/25/22 06/25/22 Unknown History % eye drops (Artificial Tears (glycerin-peg)) zinc oxide 1 appl topical DAILY PRN Wound Care 06/25/22 06/25/22 Unknown History Physical Exam Vital Signs and Narrative: Vital Signs: Last Vital Signs Temp 102.7 F H 06/25/22 17:09 Pulse 95 06/25/22 15:26 Resp 17 06/25/22 15:26 BP 116/69 06/25/22 15:26 Pulse Ox 96 06/25/22 15:26 O2 Del Method Room Air 06/25/22 15:26 BMI result Body Mass Index 17.4 Constitutional: Alert, confused, cachectic, in no acute distress. Mental Status: Not oriented to person, place, time or situation. Eyes: Pupils are equal, round, and reactive to light. Ear, Nose, and Throat: Oropharynx clear, mucous membranes dry. Ears and nose without deformities. Trachea midline. Pt with tardive dyskinesia: continually pursing lips. Respiratory: Clear to auscultation bilaterally. No wheezing, rales, or rhonchi. Cardiovascular: S1, S2, tachycardic. No murmurs, rubs, or gallops. Gastrointestinal: Abdomen soft, non-tender, non-distended. Normal bowel sounds. Neurologic: Moves all extremities spontaneously. Skin: No rashes or lesions noted. Musculoskeletal: No cyanosis or clubbing. Extremities: No edema. Psychiatric: Confused, unable to follow commands, not alert to self. Results Labs 06/25/22 14:22 06/25/22 14:22 Labs: Laboratory Results - last 24 hr 06/25/22 06/25/22 06/25/22 14:22 14:22 14:22 MCV 89.1 MCH 30.3 MCHC 34.1 RDW 14.4 Plt Count 303 MPV 9.9 Immature Gran % (Auto) 0.4 Neut % (Auto) 95.0 H Lymph % (Auto) 1.4 L Catron % (Auto) 2.5 Eos % (Auto) 0.3 Baso % (Auto) 0.4 Lymph # (Auto) 0.2 L Catron # (Auto) 0.3 Eos # (Auto) 0.0 Baso # (Auto) 0.1 Abs Immat Gran (auto) 0.05 H Absolute Neuts (auto) 12.4 H Absolute Nucleated RBC 0.000 Nucleated RBC % (auto) 0.0 Smear Tech's Comments VERIFIED PT 12.3 INR 1.1 VBG pH VBG pCO2 VBG pO2 VBG HCO3 VBG O2 Saturation VBG Base Excess Anion Gap 11 L Estim Creat Clear Calc 53.0 Estimated GFR > 60 Random Glucose 103 Lactic Acid Calcium 9.9 D Total Bilirubin 0.4 AST 16 ALT 15 Alkaline Phosphatase 78 Troponin I High Sens B-Natriuretic Peptide Total Protein 6.5 Albumin 4.0 Urine Color Urine Appearance Urine pH Ur Specific [place] Urine Protein Urine Glucose (UA) Urine Ketones Urine Blood Urine Nitrite Ur Leukocyte Esterase Urine RBC Urine WBC Ur Squamous Epith Cells Urine Bacteria Hyaline Casts 06/25/22 06/25/22 06/25/22 14:22 14:22 14:30 MCV MCH MCHC RDW Plt Count MPV Immature Gran % (Auto) Neut % (Auto) Lymph % (Auto) Catron % (Auto) Eos % (Auto) Baso % (Auto) Lymph # (Auto) Catron # (Auto) Eos # (Auto) Baso # (Auto) Abs Immat Gran (auto) Absolute Neuts (auto) Absolute Nucleated RBC Nucleated RBC % (auto) Smear Tech's Comments PT INR VBG pH 7.47 H VBG pCO2 36 VBG pO2 40 VBG HCO3 27 H VBG O2 Saturation 64.0 VBG Base Excess 3.8 Anion Gap Estim Creat Clear Calc Estimated GFR Random Glucose Lactic Acid Calcium Total Bilirubin AST ALT Alkaline Phosphatase Troponin I High Sens < 2.7 B-Natriuretic Peptide 27 Total Protein Albumin Urine Color Urine Appearance Urine pH Ur Specific [place] Urine Protein Urine Glucose (UA) Urine Ketones Urine Blood Urine Nitrite Ur Leukocyte Esterase Urine RBC Urine WBC Ur Squamous Epith Cells Urine Bacteria Hyaline Casts 06/25/22 06/25/22 15:10 16:59 MCV MCH MCHC RDW Plt Count MPV Immature Gran % (Auto) Neut % (Auto) Lymph % (Auto) Catron % (Auto) Eos % (Auto) Baso % (Auto) Lymph # (Auto) Catron # (Auto) Eos # (Auto) Baso # (Auto) Abs Immat Gran (auto) Absolute Neuts (auto) Absolute Nucleated RBC Nucleated RBC % (auto) Smear Tech's Comments PT INR VBG pH VBG pCO2 VBG pO2 VBG HCO3 VBG O2 Saturation VBG Base Excess Anion Gap Estim Creat Clear Calc Estimated GFR Random Glucose Lactic Acid 0.8 Calcium Total Bilirubin AST ALT Alkaline Phosphatase Troponin I High Sens B-Natriuretic Peptide Total Protein Albumin Urine Color Yellow Urine Appearance Clear Urine pH 8.5 Ur Specific [place] 1.020 Urine Protein Trace Urine Glucose (UA) Negative Urine Ketones Trace Urine Blood Negative Urine Nitrite Positive H Ur Leukocyte Esterase Trace H Urine RBC 3-5 H Urine WBC 0-5 Ur Squamous Epith Cells 0-2 Urine Bacteria 4+ Hyaline Casts 0-2 Imaging Radiologist's Impressions: Impressions Chest X-Ray 06/25/22 14:50 IMPRESSION: Chronic changes without significant change. No acute cardiopulmonary process. Assessment and Plan (1) Acute UTI: Status: Acute (2) Sepsis: Status: Acute Plan Pt is a 67-year-old male with a PMH significant for?hypothyroidism, chronic constipation, GERD, normocytic anemia, hx of failure to thrive, and schizophrenia who presents to the ED via EMS from [facility] for evaluation of possible pneumonia. CXR negative. UA positive for UTI and patient meets sepsis criteria. Patient will be admitted to the hospital for treatment further evaluation of acute toxic metabolic encephalopathy in the setting of urosepsis. Acute toxic metabolic encephalopathy in the setting of urosepsis Patient confused, not oriented toward self Patient meets sepsis criteria: UA positive for UTI, leukocytosis of 13.1, temperature 103.1 degrees, tachycardic. Lactic acid WNL at 0.8 Patient resuscitated with IV fluids, and started on broad-spectrum antibiotics Patient given Zosyn in ED, will switch to ceftriaxone 1g q.d., started on 06/25/2022 IVF: Normal saline Monitor mental status Hx of failure to thrive Patient cachectic, BMI 17.4 Nutrition consult Question of pneumonia Patient presented from SNF d/t concern for pneumonia Pneumonia seems unlikely: CXR negative, lungs CTA, no cough appreciated, O2 sat 98% on RA Dysphagia Patient in the past has had nectar thick liquids and pureed diet Will get speech bedside swallow evaluation Mood disorder Continue clozapine GERD Continue PPI Full Code Attending:?Dr. Oakley DVT Prophylaxis: Heparin Pt will require a hospitalization of at least two nights for treatment of?acute toxic metabolic encephalopathy secondary to urosepsis with IVF and IV antibiotics. Time Spent With Patient Time: Total time managing care of this patient today ____ minutes. Quality Stroke Does the patient have a stroke diagnosis?: No VTE Prior VTE?: No VTE Risk Level:: Medical - moderate - high VTE Device Contraindication: Treatment Not Indicated VTE Drug Contraindication: N/A - Med Ordered
--- NOTE | 2022-06-25 18:54 | MHC.EDTECH ---
t/w found a nickel-sized area of skin breakdown on pt's coccyx. rn tricia alfonso. t/w applied barrier cream to area.
[2022-06-25] MEDS: cefTRIAXone sodium 1 GM in 0.9 % Sodium Chloride 50 ML IV (19:39)
[2022-06-25] MEDS: 0.9 % Sodium Chloride 1,000 ML 100 ML IVCONT (19:40)
[2022-06-25] MEDS: Heparin Sodium,Porcine 5,000 UNIT/ML VIAL 5000 UNIT SUBCUT (20:37)
--- NOTE | 2022-06-25 20:50 | PHA.MEDREC ---
MED REC COMPLETE, CONFIRMED LAST DOSE OF CLOZARIL WITH [facility] Pharmacy Consult ? Medication Reconciliation Pharmacy has completed the medication reconciliation.
[2022-06-26] VITALS (8 sets, daily range): BP systolic 107–154; BP diastolic 61–76; PULSE 81–92; RESP 13–20; TEMP 36.7–37.7; O2SAT 94–97; BMI 17.4
[2022-06-26] MEDS: Omeprazole 20 MG CAPSULE.DR PO ×2 (05:53→17:08)
[2022-06-26] MEDS: Levothyroxine Sodium 25 MCG TABLET PO (05:53)
[2022-06-26] MEDS: 0.9 % Sodium Chloride 1,000 ML 100 ML IVCONT ×2 (06:02→16:27)
[2022-06-26 06:38] LABS: Hematocrit 32.8 % (42.0-52.0); Hemoglobin 10.8 g/dl (14.0-18.0); Mean Corpuscular HGB Conc 32.9 g/dl (31.0-36.0); Mean Corpuscular Hemoglobin 30.3 pg (27.0-33.0); Mean Corpuscular Volume 91.9 fL (80.0-98.0); Mean Platelet Volume 10.1 fL (9.4-12.4); Platelet Count 260 X10*3/uL (160-400); Red Blood Count 3.57 X10*6/uL (4.60-5.80); Red Cell Distribution Width 14.6 % (11.0-16.0); White Blood Count 9.2 X10*3/uL (4.8-10.8)
[2022-06-26] MEDS: Heparin Sodium,Porcine 5,000 UNIT/ML VIAL 5000 UNIT SUBCUT ×2 (09:25→20:27)
[2022-06-26] MEDS: FLUoxetine HCl 20 MG CAPSULE 40 MG PO (09:27)
[2022-06-26] MEDS: Desmopressin Acetate 0.2 MG TABLET 0.1 MG PO ×2 (09:28→20:27)
[2022-06-26] MEDS: levETIRAcetam 500 MG TABLET PO ×2 (09:35→20:28)
[2022-06-26] MEDS: Ascorbic Acid 500 MG TABLET PO (09:35)
[2022-06-26 09:49] LABS: Anion Gap 14 (12-20); Blood Urea Nitrogen 14 mg/dL (9-16); Calcium 9.1 mg/dL (8.4-10.2); Carbon Dioxide 23 mmol/L (22-29); Chloride 104 mmol/L (96-108); Creatinine Clr Calc Pharmacy 50.1; Estimated Glomerular Filt Rate > 60; Glucose Random 81 mg/dL (60-115); Potassium 4.5 mmol/L (3.3-5.1); Sodium 136 mmol/L (135-145)
[2022-06-26 10:05] LABS: Thyroid Stimulating Hormone 2.55 uIU/mL (0.32-4.0)
[2022-06-26] MEDS: cloZAPine 25 MG TABLET PO (11:14)
[2022-06-26 11:50] LABS: Adenovirus PCR Not Detected (Not Detect.); Bordetella parapertussis PCR Not Detected (Not Detect.); Bordetella pertussis PCR Not Detected (Not Detect.); Chlamydia pneumoniae PCR Not Detected (Not Detect.); Coronavirus 229E PCR Not Detected (Not Detect.); Coronavirus HKU1 PCR Not Detected (Not Detect.); Coronavirus NL63 PCR Not Detected (Not Detect.); Coronavirus OC43 PCR Not Detected (Not Detect.); Human metapneumovirus PCR Not Detected (Not Detect.); Influenza A PCR Not Detected (Not Detect.); Influenza B PCR Not Detected (Not Detect.); Mycoplasma pneumoniae PCR Not Detected (Not Detect.); Parainfluenza 1 PCR Not Detected (Not Detect.); Parainfluenza 2 PCR Not Detected (Not Detect.); Parainfluenza 3 PCR Not Detected (Not Detect.); Parainfluenza 4 PCR Not Detected (Not Detect.); RSV PCR Not Detected (Not Detect.); Rhino/Enterovirus PCR Detected (Not Detect.); SARS-CoV-2 PCR Not Detected (Not Detect.)
[2022-06-26] MEDS: Piperacillin Sodium/Tazobactam 3.375 GM in 0.9 % Sodium Chloride 50 ML IV ×2 (12:24→18:40)
--- NOTE | 2022-06-26 12:31 | MHC.CM.PN ---
[facility] t/w spoke w/grecia parenteau /manager of program ..she explainsm there is no additonal paperwork that md needs to fill out scripys [facility] pt on the weekend
--- NOTE | 2022-06-26 12:40 | MHC.CLN ---
NUTRITION CONSULT FOR CACHEXIA/FAILURE TO THRIVE. CURRENTLY NPO PENDING SWALLOW EVAL. NUTRITION DX SEVERE MALNUTRITION IN THE CONTEXT OF CHRONIC ILLNESS. SEVERE DEPLETION OF BODY FAT AND MUSCLE MASS NOTED. BMI=17.4 AND IS 79% IBW. FOLLOW FOR PSYCHOLOGY TECHNICIAN RECS FOR DIET ADVANCEMENT. SUPPLEMENT APPROPRIATE. MONITOR DIET ADVANCEMENT, PO INTAKE, SKIN INTEGRITY.
--- NOTE | 2022-06-26 13:10 | PM.GICN ---
History of Present Illness Data of Consult Service Date: 06/26/22 Requesting physician: Art Coughlin Primary Care Provider: Unknown Physician HPI Reason for consult: ?aspiriation 67-year-old male with a PMH significant for?hypothyroidism, chronic constipation, GERD, normocytic anemia, hx of failure to thrive, and schizophrenia who I am seeing for assessment for aspiration Limited hx from patient who denies any complaints with one word answers Apparently he is in a care facility and was noted to be coughing a lot whcih was consistent with prior episodes of aspiration pneumonia in the past hence he was sent to the ED. When I saw him he was having rigors but was alert. Imaging revealed b/l lung infiltrates suspicious for aspiration pneumonia as well as large esophgeal tic in the aortic area. UA was also suggestive of UTI. He has had EGD in 2016 and 2013 with note made of dilated esophagus with poor motility. He has also had prior admissions with aspiration stretching back over several years. Review of Systems Review of Systems: Yes Unobtainable due to mental condition and Unobtainable due to mental status PMFSH Past Medical History Medical History Adult failure to thrive Anemia Anxiety Asthma Ataxic gait Ataxic gait COPD (chronic obstructive pulmonary disease) COVID-19 Depression GERD (gastroesophageal reflux disease) Hypothyroid Impaired glucose tolerance Mentally challenged Metabolic encephalopathy MVP (mitral valve prolapse) Oropharyngeal dysphagia Paraparesis Pneumonia Schizophrenia Tracheomalacia Tubular adenoma of colon Family History Family History Family/Other Unknown family medical history Father Hypertension Mother Unknown family medical history Brother No problems noted. Sister No problems noted. Surgical History Surgical History History of esophagogastroduodenoscopy (EGD) Hx of colonoscopy S/P tracheoplasty Social History Social History Household Members: Other Household Members Other:: Resides in [place] Housing: Other Housing Other:: residential Are you a primary intensive care medicine specialist to a significant other at home: No Unable to assess alcohol history related to: Unable to respond and Unknown Alcohol intake: never Patient Tobacco Use Status: Never used Tobacco Smoked in Last 30 Days: No e-Cigarette/Vaping Use: Never Used Second Hand Smoke Exposure: No Use of substances other than those prescribed or required for medical reasons: No Advance Directives: Yes Advance Directives on File: Yes Advance Directives Date on File: 11/28/20 service: No Current occupational status: disabled Cognitive needs: Yes Hearing needs: No Vision needs: No Meds Allergies Allergy/AdvReac Type Severity Reaction Status Date / Time clindamycin Allergy Unknown Unknown Verified 06/09/22 10:12 Sulfa (Sulfonamide Allergy Unknown UNKNOWN Verified 06/09/22 10:12 Antibiotics) [SULFA(SULFONAMIDE ANTIBIOTICS)] sulfamethoxazole Allergy Unknown Unknown Verified 06/09/22 10:12 [From Bactrim] trimethoprim [From Bactrim] Allergy Unknown Unknown Verified 06/09/22 10:12 Active Medications: Current Medications Acetaminophen (Acetaminophen 325 Mg Tablet) 650 mg PO Q6H PRN PRN Reason: Pain, Mild (Pain Scale 1-3) Artificial Tears (Artificial Tears 15 Ml Drops) 1 drop EYE-BOTH Q2H PRN PRN Reason: Dry Eye(S) Artificial Tears (Artificial Tears 15 Ml Drops) 1 drop EYE-BOTH QID [facility] Last Admin: 06/26/22 09:35 Dose: Not Given Ascorbic Acid (Ascorbic Acid 500 Mg Tablet) 500 mg PO DAILY [facility] Last Admin: 06/26/22 09:35 Dose: 500 mg Clozapine (Clozapine 25 Mg Tablet) 25 mg PO DAILY [facility] Last Admin: 06/26/22 11:14 Dose: 25 mg Clozapine (Clozapine 100 Mg Tablet) 200 mg PO BEDTIME [facility] Clozapine (Clozapine 25 Mg Tablet) 50 mg PO BEDTIME [facility] Desmopressin Acetate (Desmopressin Acetate 0.2 Mg Tablet) 0.1 mg PO BID [facility] Last Admin: 06/26/22 09:28 Dose: 0.1 mg Docusate Sodium (Docusate Sodium 100 Mg Capsule) 100 mg PO DAILY PRN PRN Reason: Constipation Fluoxetine HCl (Fluoxetine Hcl 20 Mg Capsule) 40 mg PO DAILY [facility] Last Admin: 06/26/22 09:27 Dose: 40 mg Heparin Sodium (Porcine) (Heparin Sodium,Porcine 5,000 Unit/Ml Vial) 5,000 unit SUBCUT Q12H [facility] Last Admin: 06/26/22 09:25 Dose: 5,000 unit Sodium Chloride (Ns) 1,000 mls @ 100 mls/hr IVCONT .Q10H [facility] Last Admin: 06/26/22 06:02 Dose: 100 mls/hr Piperacillin Sod/Tazobactam (Sod 3.375 gm/ Sodium Chloride) 50 mls @ 100 mls/hr IV Q6H [facility] Last Admin: 06/26/22 12:24 Dose: 100 mls/hr Doxycycline Hyclate 100 mg/ (Sodium Chloride) 250 mls @ 166.67 mls/hr IV Q12H [facility] Levetiracetam (Levetiracetam 500 Mg Tablet) 500 mg PO BID [facility] Last Admin: 06/26/22 09:35 Dose: 500 mg Levothyroxine Sodium (Levothyroxine Sodium 25 Mcg Tablet) 25 mcg PO DAILY@0630 [facility] Last Admin: 06/26/22 05:53 Dose: 25 mcg Lorazepam (Lorazepam 0.5 Mg Tablet) 0.5 mg PO BEDTIME [facility] Non-Formulary Medication (Linaclotide [Linzess]) 290 mcg PO DAILY@0730 [facility] Omeprazole (Omeprazole 20 Mg Capsule.Dr) 20 mg PO BID@0630,1630 [facility] Last Admin: 06/26/22 05:53 Dose: 20 mg Ondansetron HCl (Ondansetron Hcl 4 Mg/2 Ml Vial) 4 mg IVPUSH Q8H PRN PRN Reason: Nausea and Vomiting Pharmacy Consult (Consult Rx Perform Med Rec) 1 each MISCELLANE ONCE PRN PRN Reason: Consult order Polyethylene Glycol (Polyethylene Glycol 3350 17 Gm Powd.Pack) 17 gm PO BID PRN PRN Reason: Constipation Senna (Sennosides 8.6 Mg Tablet) 17.2 mg PO BEDTIME [facility] Sodium Chloride (0.9 % Sodium Chloride Flush 3 Ml Syringe) 3 ml IVFLUSH QSHIFT [facility] Last Admin: 06/26/22 09:32 Dose: Not Given Zinc Oxide (Zinc Oxide 20% Ointment 28.35 Gm Tube) 1 appl TOPICAL DAILY PRN PRN Reason: Wound Group Home Medications Medication Instructions Recorded Confirmed Last Taken Type clozapine 100 mg tablet 200 mg PO BEDTIME 11/27/20 06/25/22 06/24/22 History fluoxetine 20 mg capsule 40 mg PO DAILY 11/27/20 06/25/22 06/25/22 History clozapine 25 mg tablet 50 mg PO BEDTIME 08/13/21 06/25/22 06/24/22 History triamcinolone acetonide 0.1 % 1 appl topical BID 10/10/21 06/25/22 10/10/21 History topical cream lorazepam 0.5 mg tablet 0.5 mg PO BEDTIME 10/19/21 06/25/22 Unknown History polyethylene glycol 3350 17 17 g PO BID PRN Constipation 10/19/21 06/25/22 Unknown History gram/dose oral powder acetaminophen 650 mg 650 mg PO Q6H PRN PAIN/FEVER 05/19/22 06/25/22 Unknown History tablet,extended release (Tylenol 8 Hour) clozapine 25 mg tablet 25 mg PO DAILY 05/19/22 06/25/22 06/25/22 History flaxseed oil 1,000 mg capsule 1,000 mg PO DAILY 05/19/22 06/25/22 06/25/22 History propylene glycol 1 %-glycerin 0.3 1 drp ophthalmic (eye) Q2H PRN Dry 06/25/22 06/25/22 Unknown History % eye drops (Artificial Tears Eye(S) (glycerin-peg)) propylene glycol 1 %-glycerin 0.3 1 drp ophthalmic (eye) QID 06/25/22 06/25/22 Unknown History % eye drops (Artificial Tears (glycerin-peg)) zinc oxide 1 appl topical DAILY PRN Wound Care 06/25/22 06/25/22 Unknown History Physical Exam Vital Signs: Vital Signs: Last Vital Signs Temp 98.6 F 06/26/22 10:11 Pulse 86 06/26/22 13:00 Resp 18 06/26/22 10:11 BP 134/66 06/26/22 13:00 Pulse Ox 96 06/26/22 13:00 O2 Del Method Room Air 06/26/22 10:11 BMI result Body Mass Index 17.4 EXAM: GENERAL: The patient is frail and under nourished VITAL SIGNS:see workflow HEENT: Nonicteric sclerae, PERRLA, EOMI. Oropharynx clear. Moist mucous membranes. Conjunctivae appear well perfused. No thyroid mass. CHEST: Chest wall is nontender. HEART: Regular rate and rhythm without murmurs. LUNGS: few crackles at the bases ABDOMEN: Soft, positive bowel sounds, nontender, no organomegaly.no flank tenderness SKIN: No rash, no excessive bruising, petechiae, or purpura. NEUROLOGIC: Cranial nerves II-XII intact without motor/sensory deficit. Psych: Appearance: disheveled Mental Status: mental status grossly abnormal Affect: Indifferent affect present Results Labs 06/26/22 06:24 06/26/22 09:02 Labs: Short CBC 06/25/22 06/26/22 Range/Units 14:22 06:24 WBC 13.1 H 9.2 (4.8-10.8) X10*3/uL Hgb 12.2 L 10.8 L (14.0-18.0) g/dl Hct 35.8 L 32.8 L (42.0-52.0) % Plt Count 303 260 (160-400) X10*3/uL BMP 06/25/22 06/26/22 14:22 09:02 Sodium 135 136 Potassium 4.4 4.5 Chloride 101 104 Carbon Dioxide 27 23 BUN 13 14 Creatinine 0.84 0.89 Calcium 9.9 D 9.1 D Liver Function 06/25/22 Range/Units 14:22 Total Bilirubin 0.4 (0.0-1.0) mg/dL AST 16 (5-37) U/L ALT 15 (0-40) U/L Alkaline Phosphatase 78 (39-117) U/L Albumin 4.0 (3.5-5.0) g/dL Urine 06/25/22 Range/Units 16:59 Urine Color Yellow Urine Appearance Clear Urine pH 8.5 (5.0-9.0) Ur Specific [place] 1.020 (1.005-1.025) Urine Protein Trace (Neg-Trace) mg/dL Urine Glucose (UA) Negative (Negative) mg/dL Microbiology Microbiology Results: Microbiology 06/25/22 Unknown Urine clean catch - Urine gurrola top Urine Culture - Preliminary Gram negative porter Imaging CT scan - chest: Attestation: I personally reviewed and interpreted this imaging study as follows: (lung infitrates, dilated esophagus ) Assessment and Plan (1) Aspiration into airway: Status: Acute (2) Oropharyngeal dysphagia: Status: Acute Plan 1/Aspiration pneumonai with dilated esophagus with large tic, hard to say if this is neuromuscular or mechanical in origin. Could b achalasia and the diverticulum could be related to chronic pressure change Plan: 1/ BA swallow---if neg then MBS 2/ thoroacic surg cosult 4/ could consider egd and botox for possible achalasia, might need G tube if ongoing aspiration concerns Time Spent With Patient Time: Total time managing care of this patient today ____ minutes. Procedures Date of Service Date of Service: 06/26/22
[2022-06-26] MEDS: Doxycycline Hyclate 100 MG in 0.9 % Sodium Chloride 250 ML 166.67 MG IV (13:35)
--- NOTE | 2022-06-26 14:01 | HO.PM.IMPN ---
Subjective Subjective Date of Service: 06/26/22 Interval History: fever ,asp. Pneumonia Review of Systems seems aox2 , answers few questions selective. Denies any chest pain or short of breath Has cough dry mostly fever improving Physical Exam Vital Signs: Vital Signs: Last Vital Signs Temp 98.6 F 06/26/22 10:11 Pulse 86 06/26/22 13:00 Resp 18 06/26/22 10:11 BP 134/66 06/26/22 13:00 Pulse Ox 96 06/26/22 13:00 O2 Del Method Room Air 06/26/22 10:11 BMI result Body Mass Index 17.4 Appearance: Alert.? Oriented -seems near his baseline as per [facility]: rrr, [id number] res: air entry diminshded right upper lobe and left lower lobe , no rales ,few rhonchii in right upper lobe area. abd: no rebound or guarding ,nt, bs present. ext pulses present , no cyanosis . neuro:follows few commands -able to lift arms ,wiggle toes . has foot drop(likley chronic) Objective Data Active Medications Acetaminophen (Acetaminophen 325 Mg Tablet) 650 mg PO Q6H PRN PRN Reason: Pain, Mild (Pain Scale 1-3) Artificial Tears (Artificial Tears 15 Ml Drops) 1 drop EYE-BOTH Q2H PRN PRN Reason: Dry Eye(S) Artificial Tears (Artificial Tears 15 Ml Drops) 1 drop EYE-BOTH QID [facility] Last Admin: 06/26/22 09:35 Dose: Not Given Documented By: DAPHNIE Non-Admin Reason: Med Not Available Ascorbic Acid (Ascorbic Acid 500 Mg Tablet) 500 mg PO DAILY [facility] Last Admin: 06/26/22 09:35 Dose: 500 mg Documented By: DAPHNIE Clozapine (Clozapine 25 Mg Tablet) 25 mg PO DAILY [facility] Last Admin: 06/26/22 11:14 Dose: 25 mg Documented By: HIRAL Clozapine (Clozapine 100 Mg Tablet) 200 mg PO BEDTIME [facility] Clozapine (Clozapine 25 Mg Tablet) 50 mg PO BEDTIME [facility] Desmopressin Acetate (Desmopressin Acetate 0.2 Mg Tablet) 0.1 mg PO BID [facility] Last Admin: 06/26/22 09:28 Dose: 0.1 mg Documented By: DAPHNIE Docusate Sodium (Docusate Sodium 100 Mg Capsule) 100 mg PO DAILY PRN PRN Reason: Constipation Fluoxetine HCl (Fluoxetine Hcl 20 Mg Capsule) 40 mg PO DAILY [facility] Last Admin: 06/26/22 09:27 Dose: 40 mg Documented By: DAPHNIE Heparin Sodium (Porcine) (Heparin Sodium,Porcine 5,000 Unit/Ml Vial) 5,000 unit SUBCUT Q12H [facility] Last Admin: 06/26/22 09:25 Dose: 5,000 unit Documented By: DAPHNIE Sodium Chloride (Ns) 1,000 mls @ 100 mls/hr IVCONT .Q10H [facility] Last Admin: 06/26/22 06:02 Dose: 100 mls/hr Documented By: JEREL Piperacillin Sod/Tazobactam (Sod 3.375 gm/ Sodium Chloride) 50 mls @ 100 mls/hr IV Q6H [facility] Last Infusion: 06/26/22 13:15 Dose: 0 mls/hr Documented By: HIRAL Doxycycline Hyclate 100 mg/ (Sodium Chloride) 250 mls @ 166.67 mls/hr IV Q12H [facility] Last Admin: 06/26/22 13:35 Dose: 166.67 mls/hr Documented By: HIRAL Levetiracetam (Levetiracetam 500 Mg Tablet) 500 mg PO BID [facility] Last Admin: 06/26/22 09:35 Dose: 500 mg Documented By: DAPHNIE Levothyroxine Sodium (Levothyroxine Sodium 25 Mcg Tablet) 25 mcg PO DAILY@0630 [facility] Last Admin: 06/26/22 05:53 Dose: 25 mcg Documented By: JEREL Lorazepam (Lorazepam 0.5 Mg Tablet) 0.5 mg PO BEDTIME [facility] Non-Formulary Medication (Linaclotide [Linzess]) 290 mcg PO DAILY@0730 [facility] Omeprazole (Omeprazole 20 Mg Capsule.) 20 mg PO BID@0630,1630 [facility] Last Admin: 06/26/22 05:53 Dose: 20 mg Documented By: JEREL Ondansetron HCl (Ondansetron Hcl 4 Mg/2 Ml Vial) 4 mg IVPUSH Q8H PRN PRN Reason: Nausea and Vomiting Pharmacy Consult (Consult Rx Perform Med Rec) 1 each MISCELLANE ONCE PRN PRN Reason: Consult order Polyethylene Glycol (Polyethylene Glycol 3350 17 Gm Powd.Pack) 17 gm PO BID PRN PRN Reason: Constipation Senna (Sennosides 8.6 Mg Tablet) 17.2 mg PO BEDTIME [facility] Sodium Chloride (0.9 % Sodium Chloride Flush 3 Ml Syringe) 3 ml IVFLUSH QSHIFT [facility] Last Admin: 06/26/22 09:32 Dose: Not Given Documented By: DAPHNIE Non-Admin Reason: IV Running Zinc Oxide (Zinc Oxide 20% Ointment 28.35 Gm Tube) 1 appl TOPICAL DAILY PRN PRN Reason: Wound Care Labs 06/26/22 06:24 06/26/22 09:02 Labs: Laboratory Results - last 24 hr 06/25/22 06/25/22 06/25/22 14:22 14:22 14:22 MCV 89.1 MCH 30.3 MCHC 34.1 RDW 14.4 Plt Count 303 MPV 9.9 Immature Gran % (Auto) 0.4 Neut % (Auto) 95.0 H Lymph % (Auto) 1.4 L [place] % (Auto) 2.5 Eos % (Auto) 0.3 Baso % (Auto) 0.4 Lymph # (Auto) 0.2 L [place] # (Auto) 0.3 Eos # (Auto) 0.0 Baso # (Auto) 0.1 Abs Immat Gran (auto) 0.05 H Absolute Neuts (auto) 12.4 H Absolute Nucleated RBC 0.000 Nucleated RBC % (auto) 0.0 Smear Tech's Comments VERIFIED PT 12.3 INR 1.1 VBG pH VBG pCO2 VBG pO2 VBG HCO3 VBG O2 Saturation VBG Base Excess Anion Gap 11 L Estim Creat Clear Calc 53.0 Estimated GFR > 60 Random Glucose 103 Lactic Acid Calcium 9.9 D Total Bilirubin 0.4 AST 16 ALT 15 Alkaline Phosphatase 78 Troponin I High Sens B-Natriuretic Peptide Total Protein 6.5 Albumin 4.0 TSH Urine Color Urine Appearance Urine pH Ur Specific [place] Urine Protein Urine Glucose (UA) Urine Ketones Urine Blood Urine Nitrite Ur Leukocyte Esterase Urine RBC Urine WBC Ur Squamous Epith Cells Urine Bacteria Hyaline Casts Respiratory Panel Ruff Adenovirus (Rapid PCR) B.pert (TEM-PCR) B.parapertussis DNA PCR C. pneumoniae DNA (PCR) Coronavirus OC43 (PCR) Coronavirus HKU1 (PCR) Coronavirus 229E (PCR) Coronavirus NL63 (PCR) Human Metapneumovir PCR Influenza A (RT-PCR) Influenza B (RT-PCR) M. pneumoniae (PCR) Parainfluenza 1 (PCR) Parainfluenza 2 (PCR) Parainfluenza 3 (PCR) Parainfluenza 4 (PCR) RSV (PCR) Entero/Rhino (PCR) SARS-CoV-2 RNA (RT-PCR) 06/25/22 06/25/22 06/25/22 14:22 14:22 14:30 MCV MCH MCHC RDW Plt Count MPV Immature Gran % (Auto) Neut % (Auto) Lymph % (Auto) [place] % (Auto) Eos % (Auto) Baso % (Auto) Lymph # (Auto) [place] # (Auto) Eos # (Auto) Baso # (Auto) Abs Immat Gran (auto) Absolute Neuts (auto) Absolute Nucleated RBC Nucleated RBC % (auto) Smear Tech's Comments PT INR VBG pH 7.47 H VBG pCO2 36 VBG pO2 40 VBG HCO3 27 H VBG O2 Saturation 64.0 VBG Base Excess 3.8 Anion Gap Estim Creat Clear Calc Estimated GFR Random Glucose Lactic Acid Calcium Total Bilirubin AST ALT Alkaline Phosphatase Troponin I High Sens < 2.7 B-Natriuretic Peptide 27 Total Protein Albumin TSH Urine Color Urine Appearance Urine pH Ur Specific [place] Urine Protein Urine Glucose (UA) Urine Ketones Urine Blood Urine Nitrite Ur Leukocyte Esterase Urine RBC Urine WBC Ur Squamous Epith Cells Urine Bacteria Hyaline Casts Respiratory Panel Ruff Adenovirus (Rapid PCR) B.pert (TEM-PCR) B.parapertussis DNA PCR C. pneumoniae DNA (PCR) Coronavirus OC43 (PCR) Coronavirus HKU1 (PCR) Coronavirus 229E (PCR) Coronavirus NL63 (PCR) Human Metapneumovir PCR Influenza A (RT-PCR) Influenza B (RT-PCR) M. pneumoniae (PCR) Parainfluenza 1 (PCR) Parainfluenza 2 (PCR) Parainfluenza 3 (PCR) Parainfluenza 4 (PCR) RSV (PCR) Entero/Rhino (PCR) SARS-CoV-2 RNA (RT-PCR) 06/25/22 06/25/22 06/26/22 15:10 16:59 06:24 MCV 91.9 MCH 30.3 MCHC 32.9 RDW 14.6 Plt Count 260 MPV 10.1 Immature Gran % (Auto) Neut % (Auto) Lymph % (Auto) [place] % (Auto) Eos % (Auto) Baso % (Auto) Lymph # (Auto) [place] # (Auto) Eos # (Auto) Baso # (Auto) Abs Immat Gran (auto) Absolute Neuts (auto) Absolute Nucleated RBC 0.000 Nucleated RBC % (auto) 0.0 Smear Tech's Comments PT INR VBG pH VBG pCO2 VBG pO2 VBG HCO3 VBG O2 Saturation VBG Base Excess Anion Gap Estim Creat Clear Calc Estimated GFR Random Glucose Lactic Acid 0.8 Calcium Total Bilirubin AST ALT Alkaline Phosphatase Troponin I High Sens B-Natriuretic Peptide Total Protein Albumin TSH Urine Color Yellow Urine Appearance Clear Urine pH 8.5 Ur Specific [place] 1.020 Urine Protein Trace Urine Glucose (UA) Negative Urine Ketones Trace Urine Blood Negative Urine Nitrite Positive H Ur Leukocyte Esterase Trace H Urine RBC 3-5 H Urine WBC 0-5 Ur Squamous Epith Cells 0-2 Urine Bacteria 4+ Hyaline Casts 0-2 Respiratory Panel Ruff Adenovirus (Rapid PCR) B.pert (TEM-PCR) B.parapertussis DNA PCR C. pneumoniae DNA (PCR) Coronavirus OC43 (PCR) Coronavirus HKU1 (PCR) Coronavirus 229E (PCR) Coronavirus NL63 (PCR) Human Metapneumovir PCR Influenza A (RT-PCR) Influenza B (RT-PCR) M. pneumoniae (PCR) Parainfluenza 1 (PCR) Parainfluenza 2 (PCR) Parainfluenza 3 (PCR) Parainfluenza 4 (PCR) RSV (PCR) Entero/Rhino (PCR) SARS-CoV-2 RNA (RT-PCR) 06/26/22 06/26/22 08:53 09:02 MCV MCH MCHC RDW Plt Count MPV Immature Gran % (Auto) Neut % (Auto) Lymph % (Auto) [place] % (Auto) Eos % (Auto) Baso % (Auto) Lymph # (Auto) [place] # (Auto) Eos # (Auto) Baso # (Auto) Abs Immat Gran (auto) Absolute Neuts (auto) Absolute Nucleated RBC Nucleated RBC % (auto) Smear Tech's Comments PT INR VBG pH VBG pCO2 VBG pO2 VBG HCO3 VBG O2 Saturation VBG Base Excess Anion Gap 14 Estim Creat Clear Calc 50.1 Estimated GFR > 60 Random Glucose 81 Lactic Acid Calcium 9.1 D Total Bilirubin AST ALT Alkaline Phosphatase Troponin I High Sens B-Natriuretic Peptide Total Protein Albumin TSH 2.55 Urine Color Urine Appearance Urine pH Ur Specific [place] Urine Protein Urine Glucose (UA) Urine Ketones Urine Blood Urine Nitrite Ur Leukocyte Esterase Urine RBC Urine WBC Ur Squamous Epith Cells Urine Bacteria Hyaline Casts Respiratory Panel Ruff See Note Adenovirus (Rapid PCR) Not Detected B.pert (TEM-PCR) Not Detected B.parapertussis DNA PCR Not Detected C. pneumoniae DNA (PCR) Not Detected Coronavirus OC43 (PCR) Not Detected Coronavirus HKU1 (PCR) Not Detected Coronavirus 229E (PCR) Not Detected Coronavirus NL63 (PCR) Not Detected Human Metapneumovir PCR Not Detected Influenza A (RT-PCR) Not Detected Influenza B (RT-PCR) Not Detected M. pneumoniae (PCR) Not Detected Parainfluenza 1 (PCR) Not Detected Parainfluenza 2 (PCR) Not Detected Parainfluenza 3 (PCR) Not Detected Parainfluenza 4 (PCR) Not Detected RSV (PCR) Not Detected Entero/Rhino (PCR) Detected A SARS-CoV-2 RNA (RT-PCR) Not Detected Microbiology Microbiology Results: Microbiology 06/25/22 Unknown Urine Culture - Preliminary Urine clean catch - Urine gurrola top Gram negative porter Assessment and Plan (1) Epiphrenic diverticulum: Status: Acute (2) Acute UTI: Status: Acute (3) Aspiration into airway: Status: Acute Plan ?67-year-old male with a PMH significant for?hypothyroidism, chronic constipation, GERD, normocytic anemia, hx of failure to thrive, and schizophrenia who presents [facility] ED [facility] for [facility] of possible pneumonia.? CXR negative.? UA positive for UTI and patient meets sepsis criteria.? Patient will be admitted to the hospital for treatment further evaluation of acute toxic metabolic encephalopathy in the setting of urosepsis. Acute toxic metabolic encephalopathy in the setting likely aspirtional penumonia d/w [facility] -mental status seems near baseline. ua -seems? boderline , urine/blood culture pendin procalcitonin levels continue IV fluids, iv doxy/zosyn day 1 (started 06/26/22). severe malnutrition: Patient cachectic, BMI 17.4 Nutrition consult Dysphagia/Question of esophageal diverticulum vs motality issue. seen by speech and swallow/GI/throacic surgery:added mbss and regular barium studies in [facility] he was on nectar thick liquids and pureed diet keep npo. iv hydration Mood disorder Continue clozapine GERD Continue PPI Full Code DVT Prophylaxis: Heparin inpatient need :aspirtional penumonia- need iv antibiotics ,Dysphagia/Question of esophageal diverticulum vs motality issue-workup pending Time Spent With Patient Time: Total time managing care of this patient today ____ minutes. Quality Stroke Does the patient have a stroke diagnosis?: No VTE Prior VTE?: No VTE Risk Level:: Medical - moderate - high VTE Device Contraindication: Treatment Not Indicated VTE Drug Contraindication: N/A - Med Ordered
--- NOTE | 2022-06-26 14:05 | HO.THORCONS ---
History of Present Illness Consult details Consult date: 06/26/22 Narrative: Thoracic consult for incidental finding of left epiphrenic diverticulum on CT scan for evaluation of pyrexia of unknown origin and right lower lobe pneumonia most likely secondary to aspiration. Patient is a plethora of medical problems including schizophrenia and is a extremely poor historian. Chart was reviewed, patient evaluated, and case discussed with Dr. Coughlin, hospitalist. 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 Sister No problems noted. Surgical History Surgical History History of bronchoscopy History of colonoscopy S/P tracheoplasty History of esophagogastroduodenoscopy (EGD) Social History Social History Household Members: Other Household Members Other:: Resides in Care Home Housing: Other Housing Other:: shelter Are you a primary home care assistant to a significant other at home: No Unable to assess alcohol history related to: Unable to respond and Unknown Alcohol intake: never Patient Tobacco Use Status: Never used Tobacco e-Cigarette/Vaping Use: Never Used Second Hand Smoke Exposure: No Advance Directives Date on File: 11/28/20 service: No Current occupational status: disabled Cognitive needs: Yes Hearing needs: No Vision needs: No Meds Allergies Allergy/AdvReac Type Severity Reaction Status Date / Time clindamycin Allergy Unknown Unknown Verified 11/27/22 10:37 Sulfa (Sulfonamide Allergy Unknown UNKNOWN Verified 11/27/22 10:37 Antibiotics) [SULFA(SULFONAMIDE ANTIBIOTICS)] sulfamethoxazole Allergy Unknown Unknown Verified 11/27/22 10:37 [From Bactrim] trimethoprim [From Bactrim] Allergy Unknown Unknown Verified 11/27/22 10:37 Active Medications: Current Medications Acetaminophen (Acetaminophen 325 Mg Tablet) 650 mg PO Q6H PRN PRN Reason: Pain, Mild (Pain Scale 1-3) Artificial Tears (Artificial Tears 15 Ml Drops) 1 drop EYE-BOTH Q2H PRN PRN Reason: Dry Eye(S) Artificial Tears (Artificial Tears 15 Ml Drops) 1 drop EYE-BOTH QID [facility] Last Admin: 06/26/22 09:35 Dose: Not Given Ascorbic Acid (Ascorbic Acid 500 Mg Tablet) 500 mg PO DAILY [facility] Last Admin: 06/26/22 09:35 Dose: 500 mg Clozapine (Clozapine 25 Mg Tablet) 25 mg PO DAILY [facility] Last Admin: 06/26/22 11:14 Dose: 25 mg Clozapine (Clozapine 100 Mg Tablet) 200 mg PO BEDTIME LEN Clozapine (Clozapine 25 Mg Tablet) 50 mg PO BEDTIME LEN Desmopressin Acetate (Desmopressin Acetate 0.2 Mg Tablet) 0.1 mg PO BID [facility] Last Admin: 06/26/22 09:28 Dose: 0.1 mg Docusate Sodium (Docusate Sodium 100 Mg Capsule) 100 mg PO DAILY PRN PRN Reason: Constipation Fluoxetine HCl (Fluoxetine Hcl 20 Mg Capsule) 40 mg PO DAILY [facility] Last Admin: 06/26/22 09:27 Dose: 40 mg Heparin Sodium (Porcine) (Heparin Sodium,Porcine 5,000 Unit/Ml Vial) 5,000 unit SUBCUT Q12H [facility] Last Admin: 06/26/22 09:25 Dose: 5,000 unit Sodium Chloride (Ns) 1,000 mls @ 100 mls/hr IVCONT .Q10H [facility] Last Admin: 06/26/22 06:02 Dose: 100 mls/hr Piperacillin Sod/Tazobactam (Sod 3.375 gm/ Sodium Chloride) 50 mls @ 100 mls/hr IV Q6H [facility] Last Infusion: 06/26/22 13:15 Dose: Infused Doxycycline Hyclate 100 mg/ (Sodium Chloride) 250 mls @ 166.67 mls/hr IV Q12H [facility] Last Admin: 06/26/22 13:35 Dose: 166.67 mls/hr Levetiracetam (Levetiracetam 500 Mg Tablet) 500 mg PO BID [facility] Last Admin: 06/26/22 09:35 Dose: 500 mg Levothyroxine Sodium (Levothyroxine Sodium 25 Mcg Tablet) 25 mcg PO DAILY@0630 [facility] Last Admin: 06/26/22 05:53 Dose: 25 mcg Lorazepam (Lorazepam 0.5 Mg Tablet) 0.5 mg PO BEDTIME [facility] Non-Formulary Medication (Linaclotide [Linzess]) 290 mcg PO DAILY@0730 [facility] Omeprazole (Omeprazole 20 Mg Capsule.Dr) 20 mg PO BID@0630,1630 [facility] Last Admin: 06/26/22 05:53 Dose: 20 mg Ondansetron HCl (Ondansetron Hcl 4 Mg/2 Ml Vial) 4 mg IVPUSH Q8H PRN PRN Reason: Nausea and Vomiting Pharmacy Consult (Consult Rx Perform Med Rec) 1 each MISCELLANE ONCE PRN PRN Reason: Consult order Polyethylene Glycol (Polyethylene Glycol 3350 17 Gm Powd.Pack) 17 gm PO BID PRN PRN Reason: Constipation Senna (Sennosides 8.6 Mg Tablet) 17.2 mg PO BEDTIME [facility] Sodium Chloride (0.9 % Sodium Chloride Flush 3 Ml Syringe) 3 ml IVFLUSH QSHIFT [facility] Last Admin: 06/26/22 09:32 Dose: Not Given Zinc Oxide (Zinc Oxide 20% Ointment 28.35 Gm Tube) 1 appl TOPICAL DAILY PRN PRN Reason: Wound Assisted Medications Medication Instructions Recorded Confirmed Last Taken Type clozapine 100 mg tablet 200 mg PO BEDTIME 11/27/20 06/25/22 06/24/22 History fluoxetine 20 mg capsule 40 mg PO DAILY 11/27/20 06/25/22 06/25/22 History clozapine 25 mg tablet 50 mg PO BEDTIME 08/13/21 06/25/22 06/24/22 History triamcinolone acetonide 0.1 % 1 appl topical BID 10/10/21 06/25/22 10/10/21 History topical cream lorazepam 0.5 mg tablet 0.5 mg PO BEDTIME 10/19/21 06/25/22 Unknown History polyethylene glycol 3350 17 17 g PO BID PRN Constipation 10/19/21 06/25/22 Unknown History gram/dose oral powder acetaminophen 650 mg 650 mg PO Q6H PRN PAIN/FEVER 05/19/22 06/25/22 Unknown History tablet,extended release (Tylenol 8 Hour) propylene glycol 1 %-glycerin 0.3 1 drp ophthalmic (eye) QID 06/25/22 06/25/22 Unknown History % eye drops (Artificial Tears (glycerin-peg)) zinc oxide 1 appl topical DAILY PRN Wound Care 06/25/22 06/25/22 Unknown History Physical Exam Vital Signs: Vital Signs: Last Vital Signs Temp 98.6 F 06/26/22 10:11 Pulse 86 06/26/22 13:00 Resp 18 06/26/22 10:11 BP 134/66 06/26/22 13:00 Pulse Ox 96 06/26/22 13:00 O2 Del Method Room Air 06/26/22 10:11 BMI result Body Mass Index 17.4 Const: Other: Very thin male. Limited contributor to his history. Chest: Other: Grossly breath sounds bilaterally. GI: Other: Abdomen scaphoid, soft, nontender. Results Labs 06/30/22 04:03 06/30/22 04:03 Labs: Abnormal lab results 06/25/22 06/25/22 06/25/22 Range/Units 14:22 14:22 14:30 WBC 13.1 H (4.8-10.8) X10*3/uL RBC 4.02 L (4.60-5.80) X10*6/uL Hgb 12.2 L (14.0-18.0) g/dl Hct 35.8 L (42.0-52.0) % Neut % (Auto) 95.0 H (45-73) % Lymph % (Auto) 1.4 L (20-40) % Lymph # (Auto) 0.2 L (1.2-4.9) X10*3/uL Abs Immat Gran (auto) 0.05 H (0.00-0.03) X10*3/uL Absolute Neuts (auto) 12.4 H (2.0-8.3) x10*3/uL VBG pH 7.47 H (7.32-7.43) VBG HCO3 27 H (22-26) mmol/L Anion Gap 11 L (12-20) Urine Nitrite (Negative) Ur Leukocyte Esterase (Negative) Urine RBC (0-2) /HPF Entero/Rhino (PCR) (Not Detect.) 06/25/22 06/26/22 06/26/22 Range/Units 16:59 06:24 08:53 WBC (4.8-10.8) X10*3/uL RBC 3.57 L (4.60-5.80) X10*6/uL Hgb 10.8 L (14.0-18.0) g/dl Hct 32.8 L (42.0-52.0) % Neut % (Auto) (45-73) % Lymph % (Auto) (20-40) % Lymph # (Auto) (1.2-4.9) X10*3/uL Abs Immat Gran (auto) (0.00-0.03) X10*3/uL Absolute Neuts (auto) (2.0-8.3) x10*3/uL VBG pH (7.32-7.43) VBG HCO3 (22-26) mmol/L Anion Gap (12-20) Urine Nitrite Positive H (Negative) Ur Leukocyte Esterase Trace H (Negative) Urine RBC 3-5 H (0-2) /HPF Entero/Rhino (PCR) Detected A (Not Detect.) Short CBC 06/25/22 06/26/22 Range/Units 14:22 06:24 WBC 13.1 H 9.2 (4.8-10.8) X10*3/uL Hgb 12.2 L 10.8 L (14.0-18.0) g/dl Hct 35.8 L 32.8 L (42.0-52.0) % Plt Count 303 260 (160-400) X10*3/uL BMP 06/25/22 06/26/22 14:22 09:02 Sodium 135 136 Potassium 4.4 4.5 Chloride 101 104 Carbon Dioxide 27 23 BUN 13 14 Creatinine 0.84 0.89 Calcium 9.9 D 9.1 D Liver Function 06/25/22 Range/Units 14:22 Total Bilirubin 0.4 (0.0-1.0) mg/dL AST 16 (5-37) U/L ALT 15 (0-40) U/L Alkaline Phosphatase 78 (39-117) U/L Albumin 4.0 (3.5-5.0) g/dL Urine 06/25/22 Range/Units 16:59 Urine Color Yellow Urine Appearance Clear Urine pH 8.5 (5.0-9.0) Ur Specific [place] 1.020 (1.005-1.025) Urine Protein Trace (Neg-Trace) mg/dL Urine Glucose (UA) Negative (Negative) mg/dL All other labs normal. Assessment and Plan (1) Epiphrenic diverticulum: Status: Inactive Plan The patient is scheduled for modified barium study to assess his swallowing capability. If possible, current plan is while undergoing with this study, to continue the swallow study to evaluate the esophagus for any obstructive issues and to evaluate his diverticulum. These epiphrenic diverticula are typically incidental findings but will await the results of the above-mentioned studies to direct further therapy. Time Spent With Patient Time: Total time managing care of this patient today ____ minutes. Procedures Date of Service Date of Service: 06/26/22
--- NOTE | 2022-06-26 14:38 | MHC.SPEECHCO ---
MBSS order received. Scheduled for 3:00pm today in Radiology.
[2022-06-26 14:49] LABS: Procalcitonin 0.14 ng/mL
--- NOTE | 2022-06-26 15:11 | MHC.SPEECHCO ---
MBSS completed. Pt demonstrated silent aspiration on small amounts of Thin Liquids. Attending Radiologist not recommending full Barium Swallow at this time. Full report to follow.
--- NOTE | 2022-06-26 15:19 | P.CNID_ITS ---
History of Present Illness Data of Consult Service Date: 06/26/22 Requesting physician: Art Coughlin Primary Care Provider: Unknown Physician HPI Reason for consult: sepsis He presents with dry cough at facility and was thought to have URI. His oxygen level on arrival was 95% on room air. His temperature was 103 and pulse 102 on arrival. He denies dysuria but is not good historian. He has urine gram negative porter and blood cultures pending.He has RLL consolidation and RVP shows entero/rhinovirus. He has no complaints today. Review of Systems Review of Systems: Yes all other systems are reviewed and are negative [facility] Past Medical History Medical History Adult failure to thrive Anemia Anxiety Asthma Ataxic gait Ataxic gait COPD (chronic obstructive pulmonary disease) COVID-19 Depression GERD (gastroesophageal reflux disease) Hypothyroid Impaired glucose tolerance Mentally challenged Metabolic encephalopathy MVP (mitral valve prolapse) Oropharyngeal dysphagia Paraparesis Pneumonia Schizophrenia Tracheomalacia Tubular adenoma of colon Family History Family History Family/Other Unknown family medical history Father Hypertension Mother Unknown family medical history Brother No problems noted. Sister No problems noted. Family history: reviewed and not pertinent Surgical History Surgical History History of esophagogastroduodenoscopy (EGD) Hx of colonoscopy S/P tracheoplasty Social History Social History Household Members: Other Household Members Other:: Resides in [place] Housing: Other Housing Other:: [facility] Are you a primary daycare teacher to a significant other at home: No Unable to assess alcohol history related to: Unable to respond and Unknown Alcohol intake: never Patient Tobacco Use Status: Never used Tobacco Smoked in Last 30 Days: No e-Cigarette/Vaping Use: Never Used Second Hand Smoke Exposure: No Use of substances other than those prescribed or required for medical reasons: No Advance Directives: Yes Advance Directives on File: Yes Advance Directives Date on File: 11/28/20 service: No Current occupational status: disabled Cognitive needs: Yes Hearing needs: No Vision needs: No Meds Allergies Allergy/AdvReac Type Severity Reaction Status Date / Time clindamycin Allergy Unknown Unknown Verified 06/09/22 10:12 Sulfa (Sulfonamide Allergy Unknown UNKNOWN Verified 06/09/22 10:12 Antibiotics) [SULFA(SULFONAMIDE ANTIBIOTICS)] sulfamethoxazole Allergy Unknown Unknown Verified 06/09/22 10:12 [From Bactrim] trimethoprim [From Bactrim] Allergy Unknown Unknown Verified 06/09/22 10:12 Active Medications: Current Medications Acetaminophen (Acetaminophen 325 Mg Tablet) 650 mg PO Q6H PRN PRN Reason: Pain, Mild (Pain Scale 1-3) Artificial Tears (Artificial Tears 15 Ml Drops) 1 drop EYE-BOTH Q2H PRN PRN Reason: Dry Eye(S) Artificial Tears (Artificial Tears 15 Ml Drops) 1 drop EYE-BOTH QID [facility] Last Admin: 06/26/22 14:16 Dose: Not Given Ascorbic Acid (Ascorbic Acid 500 Mg Tablet) 500 mg PO DAILY [facility] Last Admin: 06/26/22 09:35 Dose: 500 mg Clozapine (Clozapine 25 Mg Tablet) 25 mg PO DAILY [facility] Last Admin: 06/26/22 11:14 Dose: 25 mg Clozapine (Clozapine 100 Mg Tablet) 200 mg PO BEDTIME LEN Clozapine (Clozapine 25 Mg Tablet) 50 mg PO BEDTIME LEN Desmopressin Acetate (Desmopressin Acetate 0.2 Mg Tablet) 0.1 mg PO BID [facility] Last Admin: 06/26/22 09:28 Dose: 0.1 mg Docusate Sodium (Docusate Sodium 100 Mg Capsule) 100 mg PO DAILY PRN PRN Reason: Constipation Fluoxetine HCl (Fluoxetine Hcl 20 Mg Capsule) 40 mg PO DAILY [facility] Last Admin: 06/26/22 09:27 Dose: 40 mg Heparin Sodium (Porcine) (Heparin Sodium,Porcine 5,000 Unit/Ml Vial) 5,000 unit SUBCUT Q12H [facility] Last Admin: 06/26/22 09:25 Dose: 5,000 unit Sodium Chloride (Ns) 1,000 mls @ 100 mls/hr IVCONT .Q10H [facility] Last Admin: 06/26/22 06:02 Dose: 100 mls/hr Piperacillin Sod/Tazobactam (Sod 3.375 gm/ Sodium Chloride) 50 mls @ 100 mls/hr IV Q6H [facility] Last Infusion: 06/26/22 13:15 Dose: Infused Doxycycline Hyclate 100 mg/ (Sodium Chloride) 250 mls @ 166.67 mls/hr IV Q12H [facility] Last Admin: 06/26/22 13:35 Dose: 166.67 mls/hr Levetiracetam (Levetiracetam 500 Mg Tablet) 500 mg PO BID [facility] Last Admin: 06/26/22 09:35 Dose: 500 mg Levothyroxine Sodium (Levothyroxine Sodium 25 Mcg Tablet) 25 mcg PO DAILY@0630 [facility] Last Admin: 06/26/22 05:53 Dose: 25 mcg Lorazepam (Lorazepam 0.5 Mg Tablet) 0.5 mg PO BEDTIME [facility] Non-Formulary Medication (Linaclotide [Linzess]) 290 mcg PO DAILY@0730 [facility] Omeprazole (Omeprazole 20 Mg Capsule.Dr) 20 mg PO BID@0630,1630 [facility] Last Admin: 06/26/22 05:53 Dose: 20 mg Ondansetron HCl (Ondansetron Hcl 4 Mg/2 Ml Vial) 4 mg IVPUSH Q8H PRN PRN Reason: Nausea and Vomiting Pharmacy Consult (Consult Rx Perform Med Rec) 1 each MISCELLANE ONCE PRN PRN Reason: Consult order Polyethylene Glycol (Polyethylene Glycol 3350 17 Gm Powd.Pack) 17 gm PO BID PRN PRN Reason: Constipation Senna (Sennosides 8.6 Mg Tablet) 17.2 mg PO BEDTIME [facility] Sodium Chloride (0.9 % Sodium Chloride Flush 3 Ml Syringe) 3 ml IVFLUSH QSHIFT [facility] Last Admin: 06/26/22 14:16 Dose: Not Given Zinc Oxide (Zinc Oxide 20% Ointment 28.35 Gm Tube) 1 appl TOPICAL DAILY PRN PRN Reason: Wound Detention Medications Medication Instructions Recorded Confirmed Last Taken Type clozapine 100 mg tablet 200 mg PO BEDTIME 11/27/20 06/25/22 06/24/22 History fluoxetine 20 mg capsule 40 mg PO DAILY 11/27/20 06/25/22 06/25/22 History clozapine 25 mg tablet 50 mg PO BEDTIME 08/13/21 06/25/22 06/24/22 History triamcinolone acetonide 0.1 % 1 appl topical BID 10/10/21 06/25/22 10/10/21 History topical cream lorazepam 0.5 mg tablet 0.5 mg PO BEDTIME 10/19/21 06/25/22 Unknown History polyethylene glycol 3350 17 17 g PO BID PRN Constipation 10/19/21 06/25/22 Unknown History gram/dose oral powder acetaminophen 650 mg 650 mg PO Q6H PRN PAIN/FEVER 05/19/22 06/25/22 Unknown History tablet,extended release (Tylenol 8 Hour) clozapine 25 mg tablet 25 mg PO DAILY 05/19/22 06/25/22 06/25/22 History flaxseed oil 1,000 mg capsule 1,000 mg PO DAILY 05/19/22 06/25/22 06/25/22 History propylene glycol 1 %-glycerin 0.3 1 drp ophthalmic (eye) Q2H PRN Dry 06/25/22 06/25/22 Unknown History % eye drops (Artificial Tears Eye(S) (glycerin-peg)) propylene glycol 1 %-glycerin 0.3 1 drp ophthalmic (eye) QID 06/25/22 06/25/22 Unknown History % eye drops (Artificial Tears (glycerin-peg)) zinc oxide 1 appl topical DAILY PRN Wound Care 06/25/22 06/25/22 Unknown History Physical Exam Vital Signs: Vital Signs: Last Vital Signs Temp 99.6 F 06/26/22 15:16 Pulse 92 06/26/22 15:16 Resp 18 06/26/22 15:16 BP 118/64 06/26/22 15:16 Pulse Ox 94 06/26/22 15:16 O2 Del Method Room Air 06/26/22 15:16 BMI result Body Mass Index 17.4 Const: General: cooperative HEENT: Head: Yes normal to inspection Face and sinus: Yes normal facial exam Mouth: Normal oral and palatal mucosa present Teeth and gingiva: dentition normal Eyes: General: appearance normal, both eyes and all related structures Pupils: Equal, round and reactive pupils present Resp: Other: decreased breath sounds bases Cardio: Rate: regular rate Rhythm: regular rhythm GI: Palpation (GI): Soft to palpation and nontender : General: Yes no CVA tenderness Back/Spine/Pelvis: Back: no CVA tenderness Skin: General skin exam: no rashes or lesions noted Neuro: General: moves all extremities Cranial nerves: Yes Equal, round and reactive pupils present Extrem: General: Yes normal to inspection Psych: Appearance: grossly normal Results Labs 06/26/22 06:24 06/26/22 09:02 Labs: Short CBC 06/26/22 Range/Units 06:24 WBC 9.2 (4.8-10.8) X10*3/uL Hgb 10.8 L (14.0-18.0) g/dl Hct 32.8 L (42.0-52.0) % Plt Count 260 (160-400) X10*3/uL BMP 06/26/22 09:02 Sodium 136 Potassium 4.5 Chloride 104 Carbon Dioxide 23 BUN 14 Creatinine 0.89 Calcium 9.1 D Urine 06/25/22 Range/Units 16:59 Urine Color Yellow Urine Appearance Clear Urine pH 8.5 (5.0-9.0) Ur Specific [place] 1.020 (1.005-1.025) Urine Protein Trace (Neg-Trace) mg/dL Urine Glucose (UA) Negative (Negative) mg/dL Microbiology Microbiology Results: Microbiology 06/25/22 Unknown Urine clean catch - Urine gurrola top Urine Culture - Prelim inary Gram negative porter Assessment and Plan (1) Aspiration into airway: Status: Acute Continue Doxycycline and Zosyn,day 15. Check procalcitonin Check nares MRSA and stop Doxycycine if negative. Swallowing evaluation (2) Sepsis: Status: Acute (3) Acute UTI: Status: Acute Time Spent With Patient Time: Total time managing care of this patient today ____ minutes.
--- NOTE | 2022-06-26 15:42 | MHC.SL.IMP ---
Date of Plan of Treatment: 06/26/22 Onset of Symptoms/Illness: 06/26/22 Date Treatment Started: 06/26/22 Admitting Diagnosis: Dysphagia, Pneumonia Primary Speech & Language Diagnosis: R13.12 Oropharyngeal Phase Dysphagia Secondary Speech & Language Diagnosis: I69.911 Memory deficit Reason for Today's Visit: [id number] Modified Barium Swallow Study Pre-evaluation Dietary Consistencies: Pureed (NDD1) Pre-evaluation Liquid Consistency: Boyce Thick Pre-evaluation Medication Administration: Crushed with Puree Medical History: Acid Reflux Food and Liquid Trials: Oral Impairment: Lip Closure: 1=Interlabial escape; no progression to anterior tip Oral Impairment: Tongue Control During Bolus Hold: 1=Escape to lateral buccal cavity/floor of mouth (FOM) Oral Impairment: Bolus Preparation/Mastication: 3=Minimal chewing/mashing with majority of bolus unchewed Oral Impairment: Bolus Transport/Lingual Motion: 2=Slowed tongue motion Oral Impairment: Oral Residue: 2=Residue collection on oral structures Oral Impairment:Initiation of Pharyngeal Swallow: 3=Bolus head in pyriforms Pharyngeal Impairment: Soft Palate Elevation: 0=No bolus between soft palate (SP)/pharyngeal wall (PW) Pharyngeal Impairment: Laryngeal Elevation: 1=Partial thyroid cartilage/arytenoids to epiglottic petiole movement Pharyngeal Impairment: Anterior Hyoid Excursion: 1=Partial anterior movement Pharyngeal Impairment: Epiglottic Movement: 1=Partial inversion Pharyngeal Impairment: Laryngeal Vestibular Closure:: 2=None: No inversion Pharyngeal Impairment: Pharyngeal Stripping Wave: 0=Present: complete Pharyngeal Impairment: Pharyngeal Contraction: Did not test Pharyngeal Impairment: Pharyngoesophageal Segment Openin=Partial distention/partial duration: partial obstruction of flow Pharyngeal Impairment: Tongue Base (TB) Retraction: 2=Narrow column of contrast/air between TB and posterior PW Pharyngeal Impairment: Pharyngeal Residue: 3=Majority of contrast within or on pharyngeal structures Pharyngeal Impairment: Esophageal Clearance Upright Position: Did not test Impressions and Recommendations Clinical Observations: OBJECTIVE: Time-out: performed at 2:55 Evaluation Start: 03:00; Stop: 03:10 Viewing Planes: LATERAL ONLY Contrast: MBSImP? Standardized Protocol using commercially prepared, standardized Barium viscosities, includin/2 Shortbread Cookie (1 x1 x.25 ) MBSImP ID: [id number] MBSImP Results: Lip closure for intraoral bolus containment resulted in interlabial escape, without progression to the anterior lip. Tongue control during bolus hold allowed bolus escape to the lateral buccal cavity/floor of mouth. Bolus preparation and mastication was only minimal chewing/mashing, with the majority of the bolus unchewed. Bolus transport/lingual motion was with slowed tongue motion. Oral residue was a collection on oral structures. Initiation of the pharyngeal swallow occurred when the bolus head was in the pyriform sinuses. Soft palate elevation resulted in no bolus between the soft palate and the pharyngeal wall. Laryngeal elevation was decreased, with partial superior movement of the thyroid cartilage/partial approximation of the arytenoids to the epiglottic petiole. Anterior hyoid excursion demonstrated partial anterior movement. Epiglottic movement resulted in partial inversion. Laryngeal vestibular closure was absent, resulting in a wide column of air/contrast within the laryngeal vestibule at the height of the swallow. Pharyngeal stripping wave was present and complete. Pharyngeal contraction could not be determined due to logistical reasons not related to physiologic impairment. Pharyngoesophageal segment opening demonstrated partial distension/partial duration, with partial obstruction of bolus flow. Tongue base retraction allowed a narrow column of contrast or air between the retracted tongue base and the posterior pharyngeal wall. Pharyngeal residue was the majority of contrast within or on pharyngeal structures. Esophageal clearance in the upright position could not be assessed due to logistical reasons not related to physiologic impairment. Oral Impairment Score: 11 Pharyngeal Impairment Score: 11 (absence of score, component 13) Esophageal Impairment Score: --- (absence of score, component 17) Laryngeal Penetration and Aspiration: Both Penetration and Aspiration were observed in today's study. Pudding-thick, Boyce-thick Contrast entered the airway, remained above the vocal folds, and were not ejected from the airway. Boyce-thick, Thin Contrast entered the airway, passed below the vocal folds, and no effort were made to eject. Liquid Intake Recommendation: Boyce Thick Liquid Intake Strategies: Small Sips No Straws Double Swallow Dietary Recommendations: Pureed (NDD1) Medication Administration: Crushed with Puree Please contact the pharmacy regarding appropriate crushable or liquid drug formulations that are available whenever modified delivery is recommended. Compensatory Strategies Recommended: Supervision during eating and or drinking: Total Supervision (1:1) Recommended Treatments: Compens. Strategy Educat. Recommendation for Speech Therapy: Inpatient Speech Therapy Speech Therapy through Rehab Facility Text Comment: Clinician Assessment: Pt demonstrated silent aspiration on Thin Liquids via spoon size bite condition. Contrast entered the airway and no cough reflex was elicited. Cough was cued, however extent of airway clearance was uncertain due to motion artifact. Use of Boyce-Thick Liquids under a single-sip condition resulted in penetration above the vocal folds that was not removed with subsequent swallows. A cued cough was successful in removing under this condition. Consecutive sips of Thin Liquids resulted in penetration above the vocal folds that was not spontaneously cleared and resulted in trace silent aspiration on subsequent swallows. Puree Solids and Ground Solids resulted in mild oral residue and moderate pharyngeal residue. Use of Ground Solids were seen to clear residue from the vallecular space more readily than in liquid condition. Based on these results I would recommend a conservative return to PO with Puree Solids and Boyce-Thick Liquids. Pt will need assistance to ensure optimal positioning. He will demand total supervision to monitor for overt s/s of aspiration. He will require frequent cues from caregivers and staff to ensure use of single sip swallowing strategies. It is additionally recommended that he work with an CLINICAL RESEARCH MONITOR to address these strategies and assess potential for further advancement of solids. Career Based Intervention Coordinator Clinician/Clinical Fellow: No Supervisory Statement: N/A Speech Language Pathologist: Paulino Olivo M.A., [facility]-CLINICAL RESEARCH MONITOR
--- NOTE | 2022-06-26 17:58 | MHC.SLORD ---
Speech Language Pathology Order Status: Pt seen by CHILDCARE WORKER for bedside swallow evaluation this morning and MBSS this afternoon. MBSS recommendations: Pureed solids, nectar thick liquids (NO straws), full supervision. See MBSImP Evaluation notes under patient care for full report.
[2022-06-26] MEDS: cloZAPine 25 MG TABLET 50 MG PO (20:27)
[2022-06-26] MEDS: LORazepam 0.5 MG TABLET PO (20:28)
[2022-06-26] MEDS: Sennosides 8.6 MG TABLET 17.2 MG PO (20:28)
[2022-06-26] MEDS: cloZAPine 100 MG TABLET 200 MG PO (20:28)
[2022-06-26] MEDS: Artificial Tears 15 ML DROPS 1 DROP EYE-BOTH (21:33)
[2022-06-27] MEDS: Piperacillin Sodium/Tazobactam 3.375 GM in 0.9 % Sodium Chloride 50 ML IV ×4 (00:35→18:09)
[2022-06-27] MEDS: Doxycycline Hyclate 100 MG in 0.9 % Sodium Chloride 250 ML 166.67 MG IV ×2 (01:26→13:55)
[2022-06-27 04:00] VITALS: BP 109/62; PULSE 76; RESP 16; TEMP 37; O2SAT 97
[2022-06-27] MEDS: 0.9 % Sodium Chloride 1,000 ML 100 ML IVCONT (04:13)
[2022-06-27] MEDS: Omeprazole 20 MG CAPSULE.DR PO ×2 (06:24→16:05)
[2022-06-27] MEDS: Levothyroxine Sodium 25 MCG TABLET PO (06:25)
[2022-06-27] MEDS: Heparin Sodium,Porcine 5,000 UNIT/ML VIAL 5000 UNIT SUBCUT ×2 (07:27→20:08)
[2022-06-27] MEDS: Dextrose 5 % and 0.9 % NaCl 1,000 ML 80 ML IVCONT ×3 (07:38→18:44)
[2022-06-27 08:00] VITALS: BP 106/62; PULSE 83; RESP 16; TEMP 36.5; O2SAT 96
[2022-06-27] MEDS: Desmopressin Acetate 0.2 MG TABLET 0.1 MG PO ×2 (09:09→20:09)
[2022-06-27] MEDS: cloZAPine 25 MG TABLET PO (09:09)
[2022-06-27] MEDS: FLUoxetine HCl 20 MG CAPSULE 40 MG PO (09:09)
[2022-06-27] MEDS: levETIRAcetam 500 MG TABLET PO ×2 (09:09→20:09)
[2022-06-27] MEDS: Ascorbic Acid 500 MG TABLET PO (09:09)
[2022-06-27] MEDS: Artificial Tears 15 ML DROPS 1 DROP EYE-BOTH ×4 (09:19→20:11)
--- NOTE | 2022-06-27 10:38 | HO.PM.IMPN ---
Subjective Subjective Date of Service: 06/27/22 Interval History: fever ,asp. Pneumonia,viral uri Review of Systems feels more awake ,near his baseline' denies any chest pain has dry cough no fevers Physical Exam Vital Signs: Vital Signs: Last Vital Signs Temp 97.7 F 06/27/22 08:00 Pulse 83 06/27/22 08:00 Resp 16 06/27/22 08:00 BP 106/62 06/27/22 08:00 Pulse Ox 96 06/27/22 08:00 O2 Del Method Room Air 06/27/22 08:00 BMI result Body Mass Index 17.4 Appearance: Alert.? Oriented -seems near his baseline as per halfway. cvs: rrr, [id number] res: air entry diminshded right upper lobe and left lower lobe , no rales ,few rhonchii in right upper lobe area. abd: no rebound or guarding ,nt, bs present. ext pulses present , no cyanosis . neuro:follows few commands -able to lift arms ,wiggle toes . has foot drop(likley chronic) Objective Data Active Medications Acetaminophen (Acetaminophen 325 Mg Tablet) 650 mg PO Q6H PRN PRN Reason: Pain, Mild (Pain Scale 1-3) Artificial Tears (Artificial Tears 15 Ml Drops) 1 drop EYE-BOTH Q2H PRN PRN Reason: Dry Eye(S) Artificial Tears (Artificial Tears 15 Ml Drops) 1 drop EYE-BOTH QID [facility] Last Admin: 06/27/22 09:19 Dose: 1 drop Documented By: SONAL Ascorbic Acid (Ascorbic Acid 500 Mg Tablet) 500 mg PO DAILY [facility] Last Admin: 06/27/22 09:09 Dose: 500 mg Documented By: SONAL Clozapine (Clozapine 25 Mg Tablet) 25 mg PO DAILY [facility] Last Admin: 06/27/22 09:09 Dose: 25 mg Documented By: SONAL Clozapine (Clozapine 100 Mg Tablet) 200 mg PO BEDTIME [facility] Last Admin: 06/26/22 20:28 Dose: 200 mg Documented By: DONNAILFunmi Clozapine (Clozapine 25 Mg Tablet) 50 mg PO BEDTIME [facility] Last Admin: 06/26/22 20:27 Dose: 50 mg Documented By: PAKO Desmopressin Acetate (Desmopressin Acetate 0.2 Mg Tablet) 0.1 mg PO BID [facility] Last Admin: 06/27/22 09:09 Dose: 0.1 mg Documented By: SONAL Docusate Sodium (Docusate Sodium 100 Mg Capsule) 100 mg PO DAILY PRN PRN Reason: Constipation Fluoxetine HCl (Fluoxetine Hcl 20 Mg Capsule) 40 mg PO DAILY [facility] Last Admin: 06/27/22 09:09 Dose: 40 mg Documented By: SONAL Heparin Sodium (Porcine) (Heparin Sodium,Porcine 5,000 Unit/Ml Vial) 5,000 unit SUBCUT Q12H [facility] Last Admin: 06/27/22 07:27 Dose: 5,000 unit Documented By: SONAL Piperacillin Sod/Tazobactam (Sod 3.375 gm/ Sodium Chloride) 50 mls @ 100 mls/hr IV Q6H [facility] Last Infusion: 06/27/22 07:25 Dose: 0 mls/hr Documented By: SONAL Doxycycline Hyclate 100 mg/ (Sodium Chloride) 250 mls @ 166.67 mls/hr IV Q12H [facility] Last Infusion: 06/27/22 03:00 Dose: 0 mls/hr Documented By: PAKO Dextrose/Sodium Chloride (D5ns) 1,000 mls @ 80 mls/hr IVCONT .[id number] [facility] Last Admin: 06/27/22 07:38 Dose: 80 mls/hr Documented By: SONAL Levetiracetam (Levetiracetam 500 Mg Tablet) 500 mg PO BID [facility] Last Admin: 06/27/22 09:09 Dose: 500 mg Documented By: SONAL Levothyroxine Sodium (Levothyroxine Sodium 25 Mcg Tablet) 25 mcg PO DAILY@0630 [facility] Last Admin: 06/27/22 06:25 Dose: 25 mcg Documented By: PAKO Lorazepam (Lorazepam 0.5 Mg Tablet) 0.5 mg PO BEDTIME [facility] Last Admin: 06/26/22 20:28 Dose: 0.5 mg Documented By: PAKO Non-Formulary Medication (Linaclotide [Linzess]) 290 mcg PO DAILY@0730 [facility] Omeprazole (Omeprazole 20 Mg Capsule.) 20 mg PO BID@0630,1630 [facility] Last Admin: 06/27/22 06:24 Dose: 20 mg Documented By: HO.CASTILM Ondansetron HCl (Ondansetron Hcl 4 Mg/2 Ml Vial) 4 mg IVPUSH Q8H PRN PRN Reason: Nausea and Vomiting Pharmacy Consult (Consult Rx Perform Med Rec) 1 each MISCELLANE ONCE PRN PRN Reason: Consult order Polyethylene Glycol (Polyethylene Glycol 3350 17 Gm Powd.Pack) 17 gm PO BID PRN PRN Reason: Constipation Senna (Sennosides 8.6 Mg Tablet) 17.2 mg PO BEDTIME [facility] Last Admin: 06/26/22 20:28 Dose: 17.2 mg Documented By: PAKO Sodium Chloride (0.9 % Sodium Chloride Flush 3 Ml Syringe) 3 ml IVFLUSH QSHIFT [facility] Last Admin: 06/27/22 07:39 Dose: Not Given Documented By: SONAL Non-Admin Reason: IV Running Zinc Oxide (Zinc Oxide 20% Ointment 28.35 Gm Tube) 1 appl TOPICAL DAILY PRN PRN Reason: Wound Care Labs 06/26/22 06:24 06/26/22 09:02 Labs: Laboratory Results - last 24 hr 06/26/22 06/26/22 08:53 09:02 Procalcitonin 0.14 Respiratory Panel Ruff See Note Adenovirus (Rapid PCR) Not Detected B.pert (TEM-PCR) Not Detected B.parapertussis DNA PCR Not Detected C. pneumoniae DNA (PCR) Not Detected Coronavirus OC43 (PCR) Not Detected Coronavirus HKU1 (PCR) Not Detected Coronavirus 229E (PCR) Not Detected Coronavirus NL63 (PCR) Not Detected Human Metapneumovir PCR Not Detected Influenza A (RT-PCR) Not Detected Influenza B (RT-PCR) Not Detected M. pneumoniae (PCR) Not Detected Parainfluenza 1 (PCR) Not Detected Parainfluenza 2 (PCR) Not Detected Parainfluenza 3 (PCR) Not Detected Parainfluenza 4 (PCR) Not Detected RSV (PCR) Not Detected Entero/Rhino (PCR) Detected A SARS-CoV-2 RNA (RT-PCR) Not Detected Microbiology Microbiology Results: Microbiology 06/25/22 Unknown Urine Culture - Preliminary Urine clean catch - Urine gurrola top Escherichia coli 06/25/22 14:47 Blood Culture - Preliminary Blood - Venous No growth after 24 hours. 06/25/22 15:11 Blood Culture - Preliminary Blood - Venous No growth after 24 hours. Assessment and Plan (1) Aspiration into airway: Status: Acute (2) Acute UTI: Status: Acute Plan ?67-year-old male with a PMH significant for?hypothyroidism, chronic constipation, GERD, normocytic anemia, hx of failure to thrive, and schizophrenia who presents to the ED via EMS from halfway for evaluation of possible pneumonia.? CXR negative.? UA positive for UTI and patient meets sepsis criteria.? Patient will be admitted to the hospital for treatment further evaluation of acute toxic metabolic encephalopathy in the setting of urosepsis. Acute toxic metabolic encephalopathy in the setting likely aspirtional penumonia, also positive for viral uri(entero/rhino0 d/w halfway -mental status seems near baseline. ua -seems? boderline , urine/blood culture pendin procalcitonin levels continue IV fluids, iv doxy/zosyn day 1 (started 06/26/22). severe malnutrition: Patient cachectic, BMI 17.4 Nutrition following Dysphagia/Question of esophageal diverticulum vs motality issue. seen by speech and swallow/GI/throacic surgery:added mbss and regular barium studies in halfway he was on nectar thick liquids and pureed diet we will get in touch with speech/swallow ,iv hydration Mood disorder Continue clozapine GERD Continue PPI Full Code DVT Prophylaxis: Heparin inpatient need :aspirtional penumonia- need iv antibiotics ,Dysphagia/Question of esophageal diverticulum vs motality issue-workup pending Time Spent With Patient Time: Total time managing care of this patient today ____ minutes. Quality Stroke Does the patient have a stroke diagnosis?: No VTE Prior VTE?: No VTE Risk Level:: Medical - moderate - high VTE Device Contraindication: Treatment Not Indicated VTE Drug Contraindication: N/A - Med Ordered
[2022-06-27 12:28] LABS: MRSA Nasal PCR NEGATIVE (Negative); SA Nasal PCR NEGATIVE (Negative)
--- NOTE | 2022-06-27 13:27 | PM.NEUROCN ---
History of Present Illness Data of Consult Service Date: 06/27/22 Primary Care Provider: Unknown Physician HPI Reason for consult: Dysphagia 67-year-old male with a PMH significant for?hypothyroidism, chronic constipation, GERD, normocytic anemia, hx of failure to thrive, and schizophrenia who presents to the ED via EMS from snf for evaluation of possible pneumonia. He was not a good historian but knew where he was. He said that sometime he walked but could not tell me when was the last time he was walking normally. Review of Systems Review of Systems: Significant weight loss PMFSH Past Medical History Medical History Adult failure to thrive Anemia Anxiety Asthma Ataxic gait Ataxic gait COPD (chronic obstructive pulmonary disease) COVID-19 Depression GERD (gastroesophageal reflux disease) Hypothyroid Impaired glucose tolerance Mentally challenged Metabolic encephalopathy MVP (mitral valve prolapse) Oropharyngeal dysphagia Paraparesis Pneumonia Schizophrenia Tracheomalacia Tubular adenoma of colon Family History Family History Family/Other Unknown family medical history Father Hypertension Mother Unknown family medical history Brother No problems noted. Sister No problems noted. Family history: reviewed and not pertinent Surgical History Surgical History History of esophagogastroduodenoscopy (EGD) Hx of colonoscopy S/P tracheoplasty Social History Social History Household Members: Other Household Members Other:: Resides in Residential Housing: Other Housing Other:: snf Are you a primary med care manager to a significant other at home: No Unable to assess alcohol history related to: Unable to respond and Unknown Alcohol intake: never Patient Tobacco Use Status: Never used Tobacco Smoked in Last 30 Days: No e-Cigarette/Vaping Use: Never Used Second Hand Smoke Exposure: No Use of substances other than those prescribed or required for medical reasons: No Currently Displaying Signs/Symptoms of Drug Intoxication Withdrawal: No Advance Directives: Yes Advance Directives on File: Yes Advance Directives Date on File: 11/28/20 service: No Current occupational status: disabled Cognitive needs: Yes Hearing needs: No Vision needs: No Meds Allergies Allergy/AdvReac Type Severity Reaction Status Date / Time clindamycin Allergy Unknown Unknown Verified 06/09/22 10:12 Sulfa (Sulfonamide Allergy Unknown UNKNOWN Verified 06/09/22 10:12 Antibiotics) [SULFA(SULFONAMIDE ANTIBIOTICS)] sulfamethoxazole Allergy Unknown Unknown Verified 06/09/22 10:12 [From Bactrim] trimethoprim [From Bactrim] Allergy Unknown Unknown Verified 06/09/22 10:12 Active Medications: Current Medications Acetaminophen (Acetaminophen 325 Mg Tablet) 650 mg PO Q6H PRN PRN Reason: Pain, Mild (Pain Scale 1-3) Artificial Tears (Artificial Tears 15 Ml Drops) 1 drop EYE-BOTH Q2H PRN PRN Reason: Dry Eye(S) Artificial Tears (Artificial Tears 15 Ml Drops) 1 drop EYE-BOTH QID [facility] Last Admin: 06/27/22 13:26 Dose: 1 drop Ascorbic Acid (Ascorbic Acid 500 Mg Tablet) 500 mg PO DAILY [facility] Last Admin: 06/27/22 09:09 Dose: 500 mg Clozapine (Clozapine 25 Mg Tablet) 25 mg PO DAILY [facility] Last Admin: 06/27/22 09:09 Dose: 25 mg Clozapine (Clozapine 100 Mg Tablet) 200 mg PO BEDTIME [facility] Last Admin: 06/26/22 20:28 Dose: 200 mg Clozapine (Clozapine 25 Mg Tablet) 50 mg PO BEDTIME [facility] Last Admin: 06/26/22 20:27 Dose: 50 mg Desmopressin Acetate (Desmopressin Acetate 0.2 Mg Tablet) 0.1 mg PO BID [facility] Last Admin: 06/27/22 09:09 Dose: 0.1 mg Docusate Sodium (Docusate Sodium 100 Mg Capsule) 100 mg PO DAILY PRN PRN Reason: Constipation Fluoxetine HCl (Fluoxetine Hcl 20 Mg Capsule) 40 mg PO DAILY [facility] Last Admin: 06/27/22 09:09 Dose: 40 mg Heparin Sodium (Porcine) (Heparin Sodium,Porcine 5,000 Unit/Ml Vial) 5,000 unit SUBCUT Q12H [facility] Last Admin: 06/27/22 07:27 Dose: 5,000 unit Piperacillin Sod/Tazobactam (Sod 3.375 gm/ Sodium Chloride) 50 mls @ 100 mls/hr IV Q6H [facility] Last Admin: 06/27/22 13:23 Dose: 100 mls/hr Doxycycline Hyclate 100 mg/ (Sodium Chloride) 250 mls @ 166.67 mls/hr IV Q12H [facility] Last Infusion: 06/27/22 03:00 Dose: Infused Dextrose/Sodium Chloride (D5ns) 1,000 mls @ 80 mls/hr IVCONT .[id number] [facility] Last Admin: 06/27/22 07:38 Dose: 80 mls/hr Levetiracetam (Levetiracetam 500 Mg Tablet) 500 mg PO BID [facility] Last Admin: 06/27/22 09:09 Dose: 500 mg Levothyroxine Sodium (Levothyroxine Sodium 25 Mcg Tablet) 25 mcg PO DAILY@0630 [facility] Last Admin: 06/27/22 06:25 Dose: 25 mcg Lorazepam (Lorazepam 0.5 Mg Tablet) 0.5 mg PO BEDTIME [facility] Last Admin: 06/26/22 20:28 Dose: 0.5 mg Non-Formulary Medication (Linaclotide [Linzess]) 290 mcg PO DAILY@0730 [facility] Omeprazole (Omeprazole 20 Mg Capsule.Dr) 20 mg PO BID@0630,1630 [facility] Last Admin: 06/27/22 06:24 Dose: 20 mg Ondansetron HCl (Ondansetron Hcl 4 Mg/2 Ml Vial) 4 mg IVPUSH Q8H PRN PRN Reason: Nausea and Vomiting Pharmacy Consult (Consult Rx Perform Med Rec) 1 each MISCELLANE ONCE PRN PRN Reason: Consult order Polyethylene Glycol (Polyethylene Glycol 3350 17 Gm Powd.Pack) 17 gm PO BID PRN PRN Reason: Constipation Senna (Sennosides 8.6 Mg Tablet) 17.2 mg PO BEDTIME [facility] Last Admin: 06/26/22 20:28 Dose: 17.2 mg Sodium Chloride (0.9 % Sodium Chloride Flush 3 Ml Syringe) 3 ml IVFLUSH QSHIFT [facility] Last Admin: 06/27/22 07:39 Dose: Not Given Zinc Oxide (Zinc Oxide 20% Ointment 28.35 Gm Tube) 1 appl TOPICAL DAILY PRN PRN Reason: Wound Prison Medications Medication Instructions Recorded Confirmed Last Taken Type clozapine 100 mg tablet 200 mg PO BEDTIME 11/27/20 06/25/22 06/24/22 History fluoxetine 20 mg capsule 40 mg PO DAILY 11/27/20 06/25/22 06/25/22 History clozapine 25 mg tablet 50 mg PO BEDTIME 0606/25/22 06/24/22 History triamcinolone acetonide 0.1 % 1 appl topical BID 10/10/21 06/25/22 10/10/21 History topical cream lorazepam 0.5 mg tablet 0.5 mg PO BEDTIME 10/19/21 06/25/22 Unknown History polyethylene glycol 3350 17 17 g PO BID PRN Constipation 10/19/21 06/25/22 Unknown History gram/dose oral powder acetaminophen 650 mg 650 mg PO Q6H PRN PAIN/FEVER 05/19/22 06/25/22 Unknown History tablet,extended release (Tylenol 8 Hour) clozapine 25 mg tablet 25 mg PO DAILY 05/19/22 06/25/22 06/25/22 History flaxseed oil 1,000 mg capsule 1,000 mg PO DAILY 05/19/22 06/25/22 06/25/22 History propylene glycol 1 %-glycerin 0.3 1 drp ophthalmic (eye) Q2H PRN Dry 06/25/22 06/25/22 Unknown History % eye drops (Artificial Tears Eye(S) (glycerin-peg)) propylene glycol 1 %-glycerin 0.3 1 drp ophthalmic (eye) QID 06/25/22 06/25/22 Unknown History % eye drops (Artificial Tears (glycerin-peg)) zinc oxide 1 appl topical DAILY PRN Wound Care 06/25/22 06/25/22 Unknown History Physical Exam Vital Signs: Vital Signs: Last Vital Signs Temp 97.7 F 06/27/22 08:00 Pulse 83 06/27/22 08:00 Resp 16 06/27/22 08:00 BP 106/62 06/27/22 08:00 Pulse Ox 96 06/27/22 08:00 O2 Del Method Room Air 06/27/22 08:00 BMI result Body Mass Index 17.4 Neuro: Other: Alert and awake with normal spontaneity of speech fluency comprehension and flat affect. Speech is slightly slurred. Tongue is midline. Face is symmetrical. Visual rico are full. There is moderate to severe severe diffuse muscle atrophy all over his body with no obvious fasciculations. Deep tendon reflexes are absent with flexor plantars. He seems emaciated. Results Labs 06/26/22 06:24 06/26/22 09:02 Microbiology Microbiology Results: Microbiology 06/25/22 Unknown Urine clean catch - Urine gurrola top Urine Culture - Preliminary Escherichia coli 06/25/22 14:47 Blood - Venous Blood Culture - Preliminary No growth after 24 hours. 06/25/22 15:11 Blood - Venous Blood Culture - Preliminary No growth after 24 hours. Moderate to severe cortical frontoparietal and temporal atrophy. Assessment and Plan (1) Failure to thrive in adult: Status: Acute 67 years old man with quite significant cerebral cortical frontal parietal and temporal lobe atrophy, which typically would result in moderate to severe dementia. He also had underlying skull diagnosis of psychotic disorder complicating this picture. He has diffuse muscle atrophy, which suggested a neuromuscular disorder but likely etiology is a type of neuropathy. Overall clinical picture suggested possibility of underlying malignancy. There was significant esophageal pathology resulting in dysphagia. In terms of priorities, I suggested dressing issue of dysphagia and pulmonary pathology 1st to rule out possibility of malignancy. Supplementation of B complex folate and B12 with multi vitamin are recommended. Neuropathy can be explored as an outpatient with EMG nerve conduction study Time Spent With Patient Time: Total time managing care of this patient today ____ minutes. Procedures Date of Service Date of Service: 06/27/22
[2022-06-27 15:13] VITALS: BP 112/59; PULSE 77; RESP 18; TEMP 36.3; O2SAT 97
--- NOTE | 2022-06-27 15:56 | PC.NURSE ---
pt s temp 102 MD Cabrera noticed , pt given Tylenol see MAR bld cultures and lactic acid orderd
[2022-06-27] MEDS: 0.9 % Sodium Chloride Flush 3 ML SYRINGE IVFLUSH (16:05)
[2022-06-27] MEDS: Dextrose 5 % and 0.9 % NaCl 1,000 ML 70 ML IVCONT (18:47)
[2022-06-27 19:03] VITALS: BP 99/58; PULSE 83; RESP 16; TEMP 36.4; O2SAT 96
--- NOTE | 2022-06-27 19:14 | PM.CNGS ---
History of Present Illness Consult details Consult date: 06/27/22 Narrative: Pt is a 67-year-old male, nonsmoker with a PMH significant for?prior pneumonias, aspiration, GERD, hypothyroidism, schizophrenia, hx of failure to thrive, and schizophrenia who presents to the ED via EMS from residential for evaluation of possible pneumonia. The staff from the residential facility states he had a dry cough which was similar to when he was diagnosed with pneumonia in the past. Patient is alert to person and place. CT scan performed demonstrates esophageal diverticulum. Thoracic surgery is consulted for evaluation/treatment of aspiration pneumonia caused by an esophageal diverticulum. Review of Systems Review of Systems: patient's mental status is limited . He does report a long history of difficulty swallowing where food gets stuck in his throat. He admits to a frequent cough but not always productive. He denies increased salivation and vomiting. He states that he weights 99 pounds but has had weight loss but did not want to elaborate. He also admits to not having walked in a long time. [facility] Past Medical History Medical History (Updated 06/29/22 @ 09:10 by Keiry Hickey PA-C) Adult failure to thrive Anemia Anxiety Asthma COPD (chronic obstructive pulmonary disease) COVID-19 Depression GERD (gastroesophageal reflux disease) Hypothyroid Impaired glucose tolerance Mentally challenged Metabolic encephalopathy MVP (mitral valve prolapse) Oropharyngeal dysphagia Paraparesis Pneumonia Schizophrenia Tracheomalacia Tubular adenoma of colon Family History Family History Family/Other Unknown family medical history Father Hypertension Mother Unknown family medical history Brother No problems noted. Sister No problems noted. Family history: reviewed and not pertinent Surgical History Surgical History (Updated 06/29/22 @ 09:10 by Keiry Hickey PA-C) History of bronchoscopy History of colonoscopy History of esophagogastroduodenoscopy (EGD) S/P tracheoplasty Social History Social History Household Members: Other Household Members Other:: Resides in [facility] Housing: Other Housing Other:: residential Are you a primary field care manager to a significant other at home: No Unable to assess alcohol history related to: Unable to respond and Unknown Alcohol intake: never Patient Tobacco Use Status: Never used Tobacco Smoked in Last 30 Days: No e-Cigarette/Vaping Use: Never Used Second Hand Smoke Exposure: No Use of substances other than those prescribed or required for medical reasons: No Currently Displaying Signs/Symptoms of Drug Intoxication Withdrawal: No Advance Directives: Yes Advance Directives on File: Yes Advance Directives Date on File: 11/28/20 service: No Current occupational status: disabled Cognitive needs: Yes Hearing needs: No Vision needs: No Meds Allergies Allergy/AdvReac Type Severity Reaction Status Date / Time clindamycin Allergy Unknown Unknown Verified 06/09/22 10:12 Sulfa (Sulfonamide Allergy Unknown UNKNOWN Verified 06/09/22 10:12 Antibiotics) [SULFA(SULFONAMIDE ANTIBIOTICS)] sulfamethoxazole Allergy Unknown Unknown Verified 06/09/22 10:12 [From Bactrim] trimethoprim [From Bactrim] Allergy Unknown Unknown Verified 06/09/22 10:12 Active Medications: Current Medications Acetaminophen (Acetaminophen 325 Mg Tablet) 650 mg PO Q6H PRN PRN Reason: Pain, Mild (Pain Scale 1-3) Artificial Tears (Artificial Tears 15 Ml Drops) 1 drop EYE-BOTH Q2H PRN PRN Reason: Dry Eye(S) Artificial Tears (Artificial Tears 15 Ml Drops) 1 drop EYE-BOTH QID [facility] Last Admin: 06/27/22 16:06 Dose: 1 drop Ascorbic Acid (Ascorbic Acid 500 Mg Tablet) 500 mg PO DAILY [facility] Last Admin: 06/27/22 09:09 Dose: 500 mg Clozapine (Clozapine 25 Mg Tablet) 25 mg PO DAILY [facility] Last Admin: 06/27/22 09:09 Dose: 25 mg Clozapine (Clozapine 100 Mg Tablet) 200 mg PO BEDTIME [facility] Last Admin: 06/26/22 20:28 Dose: 200 mg Clozapine (Clozapine 25 Mg Tablet) 50 mg PO BEDTIME [facility] Last Admin: 06/26/22 20:27 Dose: 50 mg Desmopressin Acetate (Desmopressin Acetate 0.2 Mg Tablet) 0.1 mg PO BID [facility] Last Admin: 06/27/22 09:09 Dose: 0.1 mg Docusate Sodium (Docusate Sodium 100 Mg Capsule) 100 mg PO DAILY PRN PRN Reason: Constipation Fluoxetine HCl (Fluoxetine Hcl 20 Mg Capsule) 40 mg PO DAILY [facility] Last Admin: 06/27/22 09:09 Dose: 40 mg Heparin Sodium (Porcine) (Heparin Sodium,Porcine 5,000 Unit/Ml Vial) 5,000 unit SUBCUT Q12H [facility] Last Admin: 06/27/22 07:27 Dose: 5,000 unit Piperacillin Sod/Tazobactam (Sod 3.375 gm/ Sodium Chloride) 50 mls @ 100 mls/hr IV Q6H [facility] Last Infusion: 06/27/22 18:48 Dose: Infused Doxycycline Hyclate 100 mg/ (Sodium Chloride) 250 mls @ 166.67 mls/hr IV Q12H [facility] Last Infusion: 06/27/22 15:31 Dose: Infused Dextrose/Sodium Chloride (D5ns) 1,000 mls @ 80 mls/hr IVCONT .[id number] [facility] Last Admin: 06/27/22 18:44 Dose: 80 mls/hr Dextrose/Sodium Chloride (D5ns) 1,000 mls @ 70 mls/hr IVCONT .[id number] [facility] Last Admin: 06/27/22 18:47 Dose: 70 mls/hr Levetiracetam (Levetiracetam 500 Mg Tablet) 500 mg PO BID [facility] Last Admin: 06/27/22 09:09 Dose: 500 mg Levothyroxine Sodium (Levothyroxine Sodium 25 Mcg Tablet) 25 mcg PO DAILY@0630 [facility] Last Admin: 06/27/22 06:25 Dose: 25 mcg Lorazepam (Lorazepam 0.5 Mg Tablet) 0.5 mg PO BEDTIME [facility] Last Admin: 06/26/22 20:28 Dose: 0.5 mg Non-Formulary Medication (Linaclotide [Linzess]) 290 mcg PO DAILY@0730 [facility] Omeprazole (Omeprazole 20 Mg Capsule.Dr) 20 mg PO BID@0630,1630 [facility] Last Admin: 06/27/22 16:05 Dose: 20 mg Ondansetron HCl (Ondansetron Hcl 4 Mg/2 Ml Vial) 4 mg IVPUSH Q8H PRN PRN Reason: Nausea and Vomiting Pharmacy Consult (Consult Rx Perform Med Rec) 1 each MISCELLANE ONCE PRN PRN Reason: Consult order Polyethylene Glycol (Polyethylene Glycol 3350 17 Gm Powd.Pack) 17 gm PO BID PRN PRN Reason: Constipation Senna (Sennosides 8.6 Mg Tablet) 17.2 mg PO BEDTIME [facility] Last Admin: 06/26/22 20:28 Dose: 17.2 mg Sodium Chloride (0.9 % Sodium Chloride Flush 3 Ml Syringe) 3 ml IVFLUSH QSHIFT [facility] Last Admin: 06/27/22 16:05 Dose: 3 ml Zinc Oxide (Zinc Oxide 20% Ointment 28.35 Gm Tube) 1 appl TOPICAL DAILY PRN PRN Reason: Wound Shelter Medications Medication Instructions Recorded Confirmed Last Taken Type clozapine 100 mg tablet 200 mg PO BEDTIME 11/27/20 06/25/22 06/24/22 History fluoxetine 20 mg capsule 40 mg PO DAILY 11/27/20 06/25/22 06/25/22 History clozapine 25 mg tablet 50 mg PO BEDTIME 08/13/21 06/25/22 06/24/22 History triamcinolone acetonide 0.1 % 1 appl topical BID 10/10/21 06/25/22 10/10/21 History topical cream lorazepam 0.5 mg tablet 0.5 mg PO BEDTIME 10/19/21 06/25/22 Unknown History polyethylene glycol 3350 17 17 g PO BID PRN Constipation 10/19/21 06/25/22 Unknown History gram/dose oral powder acetaminophen 650 mg 650 mg PO Q6H PRN PAIN/FEVER 05/19/22 06/25/22 Unknown History tablet,extended release (Tylenol 8 Hour) clozapine 25 mg tablet 25 mg PO DAILY 05/19/22 06/25/22 06/25/22 History flaxseed oil 1,000 mg capsule 1,000 mg PO DAILY 05/19/22 06/25/22 06/25/22 History propylene glycol 1 %-glycerin 0.3 1 drp ophthalmic (eye) Q2H PRN Dry 06/25/22 06/25/22 Unknown History % eye drops (Artificial Tears Eye(S) (glycerin-peg)) propylene glycol 1 %-glycerin 0.3 1 drp ophthalmic (eye) QID 06/25/22 06/25/22 Unknown History % eye drops (Artificial Tears (glycerin-peg)) zinc oxide 1 appl topical DAILY PRN Wound Care 06/25/22 06/25/22 Unknown History Physical Exam Vital Signs: Vital Signs: Last Vital Signs Temp 97.6 F 06/27/22 19:03 Pulse 83 06/27/22 19:03 Resp 16 06/27/22 19:03 BP 99/58 L 05/06/23 19:03 Pulse Ox 96 06/27/22 19:03 O2 Del Method Room Air 06/27/22 19:03 BMI result Body Mass Index 17.4 Const: Other: HEENT: NC/AT, EOMI, no sinus tenderness, hearing intact, tongue midline. Neck: No JVD, no carotid bruits, no cervical lymphadenopathy Heart: RRR Lungs: diminshed bilaterally with coarse breath sounds in left upper field Abd: soft, NT, ND, BS + X 4 EXT: BUE and BLE with no edema. Poor reflexes Neuro: limited Psych: limited Results Labs 06/26/22 06:24 06/26/22 09:02 Labs: Urine 06/25/22 Range/Units 16:59 Urine Color Yellow Urine Appearance Clear Urine pH 8.5 (5.0-9.0) Ur Specific [place] 1.020 (1.005-1.025) Urine Protein Trace (Neg-Trace) mg/dL Urine Glucose (UA) Negative (Negative) mg/dL All other labs normal. Imaging Chest x-ray: report reviewed and image reviewed CT scan - chest: report reviewed and image reviewed Additional studies: Barium Swallow: IMPRESSION: Danielle laryngeal aspiration with thin barium. ? There is normal propagation of bolus barium coated pudding and cookie coated barium without laryngeal penetration or aspiration. CT Scan: IMPRESSION: ? 1. Thoracic CT demonstrates increasing confluence of masslike consolidation in the superior segment of the right lower lobe and new patchy airspace opacities in the posterior right costophrenic sulcus. ? 2. Improved but persistent consolidation in the left lower lobe.? ? 3. Distended esophagus with a large left lateral esophageal diverticulum. Findings suggest esophageal dysmotility, perhaps achalasia, raising aspiration pneumonitis as the etiology of the patient's bilateral pulmonary opacities. CXR IMPRESSION: Chronic changes without significant change. No acute cardiopulmonary process. Assessment and Plan (1) Aspiration into airway: Status: Acute (2) Esophageal diverticulum: Status: Acute Plan 67 y/o male with chronic history of GERD and dysphagia, sensation of food becoming stuck, and historical numerous episodes of pneumonia in past. 1. CT scan confirms esophageal diverticulum. Barium demonstrates danielle aspiration but with barium coated pudding there is no laryngeal penetration/aspiration. Food thickeners have assisted patient but hasn't eliminated episodes of aspiration. Acute Aspiration Pna - pt currently on Zosyn. 2. I did ask patient if surgery is an option would he be interested and he declined surgery. At this time he is not a surgical candidate. 3. Recommend GI scope to assess severity of esophageal diverticulum and PEG to provide nutrition and to limit/reduce episodes of aspiration pneumonia. 4. Control GERD symptoms 5. Nutritional consult for cachetic appearance 6. Blood culture: No growth to date. 7. E.coli UTI - on Zosyn 8. PT/OT 9. Incidental nodules seen on CT scan: 13 X 9 mm subcarinal node and 9 mm right tracheobronchial nodule. Can work up after patient recovered from illness. Follow up with Pulmonology or Thoracic Surgery as outpatient Time Spent With Patient Time: Total time managing care of this patient today ____ minutes. Procedures Date of Service Date of Service: 06/27/22
[2022-06-27] MEDS: cloZAPine 25 MG TABLET 50 MG PO (20:09)
[2022-06-27] MEDS: LORazepam 0.5 MG TABLET PO (20:09)
[2022-06-27] MEDS: Sennosides 8.6 MG TABLET 17.2 MG PO (20:09)
[2022-06-27] MEDS: cloZAPine 100 MG TABLET 200 MG PO (20:09)
[2022-06-28] MEDS: Acetaminophen 325 MG TABLET 650 MG PO (00:55)
[2022-06-28] MEDS: Piperacillin Sodium/Tazobactam 3.375 GM in 0.9 % Sodium Chloride 50 ML IV ×4 (00:56→18:11)
[2022-06-28] MEDS: Doxycycline Hyclate 100 MG in 0.9 % Sodium Chloride 250 ML 166.67 MG IV ×2 (01:34→13:30)
--- NOTE | 2022-06-28 03:25 | PC.NURSE ---
Addendum entered by Carito Cornejo RN 06/28/22 06:07: sitter assigned to the pt. Addendum entered by Carito Cornejo RN 06/28/22 05:38: Pt became restless , yelling and impulsive again, and saying he's gonna kill himself, Dr. Rebollar was aware, Clin sup was notified also, tried to redirect pt, but becoming verbally aggressive. Original Note: Pt woke up around 2am confused, restless and unredirectible, pt claimed, he's not in his room and wants to dressed up and go search for his room, reoriented pt that he is in the hospital but failed, and even threatened to hurt himself if he is not allowed to look for his room, continued to reorient and redirecte, Dr. Rebollar was updated, [employer] camera was placed , pt settled down after.
[2022-06-28] MEDS: Omeprazole 20 MG CAPSULE.DR PO ×2 (05:29→15:50)
[2022-06-28] MEDS: Levothyroxine Sodium 25 MCG TABLET PO (05:30)
[2022-06-28] MEDS: Heparin Sodium,Porcine 5,000 UNIT/ML VIAL 5000 UNIT SUBCUT ×2 (07:26→21:05)
[2022-06-28] MEDS: Desmopressin Acetate 0.2 MG TABLET 0.1 MG PO ×2 (07:27→21:04)
[2022-06-28] MEDS: levETIRAcetam 500 MG TABLET PO ×2 (07:27→21:05)
[2022-06-28] MEDS: Ascorbic Acid 500 MG TABLET PO (07:27)
[2022-06-28] MEDS: FLUoxetine HCl 20 MG CAPSULE 40 MG PO (07:27)
[2022-06-28] MEDS: cloZAPine 25 MG TABLET PO (07:27)
[2022-06-28] MEDS: Dextrose 5 % and 0.9 % NaCl 1,000 ML 70 ML IVCONT (07:28)
[2022-06-28 07:57] VITALS: BP 109/69; PULSE 77; RESP 18; TEMP 36.2; O2SAT 99
[2022-06-28] MEDS: Artificial Tears 15 ML DROPS 1 DROP EYE-BOTH ×4 (08:07→21:13)
--- NOTE | 2022-06-28 10:06 | HO.PM.IMPN ---
Subjective Subjective Date of Service: 06/28/22 Interval History: fever ,asp. Pneumonia,viral uri Review of Systems seems awake , near baseline , had Si overnight. has dry cough,no fevers Physical Exam Vital Signs: Vital Signs: Last Vital Signs Temp 97.2 F 06/28/22 07:57 Pulse 77 06/28/22 07:57 Resp 18 06/28/22 07:57 BP 109/69 06/28/22 07:57 Pulse Ox 99 06/28/22 07:57 O2 Del Method Room Air 06/28/22 07:57 BMI result Body Mass Index 17.4 Appearance: Alert.? Oriented -seems near his baseline as per [facility]. cvs: rrr, [id number] res: air entry diminshded right upper lobe and left lower lobe , no rales ,few rhonchii in right upper lobe area. abd: no rebound or guarding ,nt, bs present. ext pulses present , no cyanosis . neuro:follows few commands -able to lift arms ,wiggle toes . has foot drop(likley chronic) Objective Data Active Medications Acetaminophen (Acetaminophen 325 Mg Tablet) 650 mg PO Q6H PRN PRN Reason: Pain, Mild (Pain Scale 1-3) Last Admin: 06/28/22 00:55 Dose: 650 mg Documented By: PAKO Artificial Tears (Artificial Tears 15 Ml Drops) 1 drop EYE-BOTH Q2H PRN PRN Reason: Dry Eye(S) Artificial Tears (Artificial Tears 15 Ml Drops) 1 drop EYE-BOTH QID [facility] Last Admin: 06/28/22 08:07 Dose: 1 drop Documented By: SONAL Ascorbic Acid (Ascorbic Acid 500 Mg Tablet) 500 mg PO DAILY [facility] Last Admin: 06/28/22 07:27 Dose: 500 mg Documented By: SONAL Clozapine (Clozapine 25 Mg Tablet) 25 mg PO DAILY [facility] Last Admin: 06/28/22 07:27 Dose: 25 mg Documented By: SONAL Clozapine (Clozapine 100 Mg Tablet) 200 mg PO BEDTIME [facility] Last Admin: 06/27/22 20:09 Dose: 200 mg Documented By: PAKO Clozapine (Clozapine 25 Mg Tablet) 50 mg PO BEDTIME [facility] Last Admin: 06/27/22 20:09 Dose: 50 mg Documented By: PAKO Desmopressin Acetate (Desmopressin Acetate 0.2 Mg Tablet) 0.1 mg PO BID [facility] Last Admin: 06/28/22 07:27 Dose: 0.1 mg Documented By: SONAL Docusate Sodium (Docusate Sodium 100 Mg Capsule) 100 mg PO DAILY PRN PRN Reason: Constipation Fluoxetine HCl (Fluoxetine Hcl 20 Mg Capsule) 40 mg PO DAILY [facility] Last Admin: 06/28/22 07:27 Dose: 40 mg Documented By: SONAL Heparin Sodium (Porcine) (Heparin Sodium,Porcine 5,000 Unit/Ml Vial) 5,000 unit SUBCUT Q12H [facility] Last Admin: 06/28/22 07:26 Dose: 5,000 unit Documented By: SONAL Piperacillin Sod/Tazobactam (Sod 3.375 gm/ Sodium Chloride) 50 mls @ 100 mls/hr IV Q6H [facility] Last Infusion: 06/28/22 06:38 Dose: 0 mls/hr Documented By: PAKO Doxycycline Hyclate 100 mg/ (Sodium Chloride) 250 mls @ 166.67 mls/hr IV Q12H [facility] Last Infusion: 06/28/22 03:13 Dose: 0 mls/hr Documented By: PAKO Levetiracetam (Levetiracetam 500 Mg Tablet) 500 mg PO BID [facility] Last Admin: 06/28/22 07:27 Dose: 500 mg Documented By: SONAL Levothyroxine Sodium (Levothyroxine Sodium 25 Mcg Tablet) 25 mcg PO DAILY@0630 [facility] Last Admin: 06/28/22 05:30 Dose: 25 mcg Documented By: PAKO Lorazepam (Lorazepam 0.5 Mg Tablet) 0.5 mg PO BEDTIME [facility] Last Admin: 06/27/22 20:09 Dose: 0.5 mg Documented By: PAKO Non-Formulary Medication (Linaclotide [Linzess]) 290 mcg PO DAILY@0730 [facility] Omeprazole (Omeprazole 20 Mg Capsule.) 20 mg PO BID@0630,1630 [facility] Last Admin: 06/28/22 05:29 Dose: 20 mg Documented By: PAKO Ondansetron HCl (Ondansetron Hcl 4 Mg/2 Ml Vial) 4 mg IVPUSH Q8H PRN PRN Reason: Nausea and Vomiting Pharmacy Consult (Consult Rx Perform Med Rec) 1 each MISCELLANE ONCE PRN PRN Reason: Consult order Polyethylene Glycol (Polyethylene Glycol 3350 17 Gm Powd.Pack) 17 gm PO BID PRN PRN Reason: Constipation Senna (Sennosides 8.6 Mg Tablet) 17.2 mg PO BEDTIME [facility] Last Admin: 06/27/22 20:09 Dose: 17.2 mg Documented By: CASTILFunmi Sodium Chloride (0.9 % Sodium Chloride Flush 3 Ml Syringe) 3 ml IVFLUSH QSHIFT [facility] Last Admin: 06/28/22 07:29 Dose: Not Given Documented By: SONAL Non-Admin Reason: IV Running Zinc Oxide (Zinc Oxide 20% Ointment 28.35 Gm Tube) 1 appl TOPICAL DAILY PRN PRN Reason: Wound Care Labs 06/26/22 06:24 06/26/22 09:02 Labs: Laboratory Results - last 24 hr 06/26/22 18:20 Nasal Screen MRSA (PCR) NEGATIVE Nasal S. aureus Screen NEGATIVE Nasal MRSA/S.aureus Interp SEE NOTE Microbiology Microbiology Results: Microbiology 06/25/22 Unknown Urine Culture - Final Urine clean catch - Urine gurrola top Escherichia coli 06/25/22 14:47 Blood Culture - Preliminary Blood - Venous No growth after 48 hours. 06/25/22 15:11 Blood Culture - Preliminary Blood - Venous No growth after 48 hours. Assessment and Plan (1) Aspiration into airway: Status: Acute (2) Acute UTI: Status: Acute Plan ?67-year-old male with a PMH significant for?hypothyroidism, chronic constipation, GERD, normocytic anemia, hx of failure to thrive, and schizophrenia who presents to the ED via EMS from [facility] for evaluation of possible pneumonia.? CXR negative.? UA positive for UTI and patient meets sepsis criteria.? Patient will be admitted to the hospital for treatment further evaluation of acute toxic metabolic encephalopathy in the setting of urosepsis. Acute toxic metabolic encephalopathy in the setting likely aspirtional penumonia, also positive for viral uri(entero/rhino0 d/w [facility] -mental status seems near baseline. ua -seems? boderline , urine/blood culture pendin procalcitonin levels continue IV fluids, iv doxy/zosyn (started 06/26/22). severe malnutrition: Patient cachectic, BMI 17.4 Nutrition following diet -noted speech/swallow note -added diet. Dysphagia/Question of esophageal diverticulum vs motality issue. seen by speech and swallow/GI/throacic surgery:added mbss and regular barium studies in [facility] he was on nectar thick liquids and pureed diet we will get in touch with speech/swallow ,iv hydration Mood disorder Continue clozapine,added clozapine levels have SI added psych/ care team eval. GERD Continue PPI Full Code DVT Prophylaxis: Heparin inpatient need :aspirtional penumonia- need iv antibiotics ,Dysphagia/Question of esophageal diverticulum vs motality issue-workup pending Time Spent With Patient Time: Total time managing care of this patient today ____ minutes. Quality Stroke Does the patient have a stroke diagnosis?: No VTE Prior VTE?: No VTE Risk Level:: Medical - moderate - high VTE Device Contraindication: Treatment Not Indicated VTE Drug Contraindication: N/A - Med Ordered
[2022-06-28] MEDS: Multivitamin TABLET 1 TAB PO (11:23)
[2022-06-28] MEDS: Thiamine HCL 100 MG TABLET PO (11:23)
[2022-06-28] MEDS: Cyanocobalamin (Vitamin B-12) 1,000 MCG TABLET 1000 MCG PO (11:23)
[2022-06-28 12:13] LABS: Vitamin B12 874 pg/mL (200-900)
[2022-06-28 15:11] VITALS: BP 105/61; PULSE 77; RESP 17; TEMP 36.4; O2SAT 99
[2022-06-28] MEDS: 0.9 % Sodium Chloride Flush 3 ML SYRINGE IVFLUSH ×2 (15:50→21:12)
--- NOTE | 2022-06-28 18:42 | PC.NURSE ---
pt maintained on 1:1 observation for SI , pt agitated at times but easy to redirect and deescalate. awaiting psych consult
[2022-06-28 19:10] VITALS: BP 107/65; PULSE 79; RESP 16; TEMP 36.3; O2SAT 99
[2022-06-28] MEDS: LORazepam 0.5 MG TABLET PO (21:05)
[2022-06-28] MEDS: Sennosides 8.6 MG TABLET 17.2 MG PO (21:05)
[2022-06-28] MEDS: cloZAPine 100 MG TABLET 200 MG PO (21:05)
[2022-06-28] MEDS: cloZAPine 25 MG TABLET 50 MG PO (21:05)
[2022-06-29] MEDS: Piperacillin Sodium/Tazobactam 3.375 GM in 0.9 % Sodium Chloride 50 ML IV ×4 (01:00→19:45)
[2022-06-29] MEDS: Doxycycline Hyclate 100 MG in 0.9 % Sodium Chloride 250 ML 166.67 MG IV ×2 (01:02→14:13)
[2022-06-29 03:20] VITALS: BP 137/80; PULSE 77; RESP 16; TEMP 36.1; O2SAT 93
[2022-06-29] MEDS: Levothyroxine Sodium 25 MCG TABLET PO (05:35)
[2022-06-29] MEDS: Omeprazole 20 MG CAPSULE.DR PO ×2 (05:35→15:54)
[2022-06-29 07:06] VITALS: BP 115/85; PULSE 80; RESP 20; TEMP 36.2; O2SAT 100
--- NOTE | 2022-06-29 09:11 | MHC.CARE ---
T/w met with patient for CARE evaluation. Patient is denying current SI/ HI, reports he gets upset sometimes but won't act on his statement and no longer has thoughts to hurt self. Alludes to remote history of suicide attempt but struggles to identify date/ method of attempt. He is alert oriented to self, place, date, length of stay in the hospital, situation. Described [facility] as a kind of second home to him. Shares some family info including that he is a twin, likes the red sox, has four siblings that he describes as good ones. He knows his group exercise instructor and reports liking it there. He will not be an inpatient psych bed search, given his current presentation and lack of acute/ imminent risk.
[2022-06-29] MEDS: 0.9 % Sodium Chloride Flush 3 ML SYRINGE IVFLUSH ×3 (10:25→20:43)
[2022-06-29] MEDS: Heparin Sodium,Porcine 5,000 UNIT/ML VIAL 5000 UNIT SUBCUT ×2 (10:25→20:43)
[2022-06-29] MEDS: Desmopressin Acetate 0.2 MG TABLET 0.1 MG PO ×2 (10:26→20:42)
[2022-06-29] MEDS: Thiamine HCL 100 MG TABLET PO (10:26)
[2022-06-29] MEDS: levETIRAcetam 500 MG TABLET PO ×2 (10:26→20:43)
[2022-06-29] MEDS: cloZAPine 25 MG TABLET PO (10:26)
[2022-06-29] MEDS: Multivitamin TABLET 1 TAB PO (10:27)
[2022-06-29] MEDS: FLUoxetine HCl 20 MG CAPSULE 40 MG PO (10:27)
[2022-06-29] MEDS: Artificial Tears 15 ML DROPS 1 DROP EYE-BOTH ×4 (10:27→20:40)
[2022-06-29] MEDS: Cyanocobalamin (Vitamin B-12) 1,000 MCG TABLET 1000 MCG PO (10:27)
[2022-06-29] MEDS: Ascorbic Acid 500 MG TABLET PO (10:27)
--- NOTE | 2022-06-29 10:30 | HO.PM.IMPN ---
Subjective Subjective Date of Service: 06/29/22 Interval History: fever ,asp. Pneumonia,viral uri Review of Systems seems awake , near baseline , had Si overnight. has dry cough,no fevers Physical Exam Vital Signs: Vital Signs: Last Vital Signs Temp 97.2 F 06/29/22 07:06 Pulse 80 06/29/22 07:06 Resp 20 06/29/22 07:06 BP 115/85 06/29/22 07:06 Pulse Ox 100 06/29/22 07:06 O2 Del Method Room Air 06/29/22 07:06 BMI result Body Mass Index 17.4 Appearance: Alert.? Oriented -seems near his baseline as per nursing home. cvs: [id number], [id number] res: air entry diminshded right upper lobe and left lower lobe , no rales ,few rhonchii in right upper lobe area. abd: no rebound or guarding ,nt, bs present. ext pulses present , no cyanosis . neuro:follows few commands -able to lift arms ,wiggle toes . has foot drop(likley chronic) Objective Data Active Medications Acetaminophen (Acetaminophen 325 Mg Tablet) 650 mg PO Q6H PRN PRN Reason: Pain, Mild (Pain Scale 1-3) Last Admin: 06/28/22 00:55 Dose: 650 mg Documented By: PAKO Artificial Tears (Artificial Tears 15 Ml Drops) 1 drop EYE-BOTH Q2H PRN PRN Reason: Dry Eye(S) Last Admin: 06/28/22 21:13 Dose: 1 drop Documented By: AYLIN Artificial Tears (Artificial Tears 15 Ml Drops) 1 drop EYE-BOTH QID [facility] Last Admin: 06/29/22 10:27 Dose: 1 drop Documented By: CARMITA Ascorbic Acid (Ascorbic Acid 500 Mg Tablet) 500 mg PO DAILY [facility] Last Admin: 06/29/22 10:27 Dose: 500 mg Documented By: CARMITA Clozapine (Clozapine 25 Mg Tablet) 25 mg PO DAILY [facility] Last Admin: 06/29/22 10:26 Dose: 25 mg Documented By: CARMITA Clozapine (Clozapine 100 Mg Tablet) 200 mg PO BEDTIME [facility] Last Admin: 06/28/22 21:05 Dose: 200 mg Documented By: AYLIN Clozapine (Clozapine 25 Mg Tablet) 50 mg PO BEDTIME [facility] Last Admin: 06/28/22 21:05 Dose: 50 mg Documented By: AYLIN Cyanocobalamin (Cyanocobalamin (Vitamin B-12) 1,000 Mcg Tablet) 1,000 mcg PO DAILY [facility] Last Admin: 06/29/22 10:27 Dose: 1,000 mcg Documented By: CARMITA Desmopressin Acetate (Desmopressin Acetate 0.2 Mg Tablet) 0.1 mg PO BID [facility] Last Admin: 06/29/22 10:26 Dose: 0.1 mg Documented By: CARMITA Docusate Sodium (Docusate Sodium 100 Mg Capsule) 100 mg PO DAILY PRN PRN Reason: Constipation Fluoxetine HCl (Fluoxetine Hcl 20 Mg Capsule) 40 mg PO DAILY [facility] Last Admin: 06/29/22 10:27 Dose: 40 mg Documented By: CARMITA Heparin Sodium (Porcine) (Heparin Sodium,Porcine 5,000 Unit/Ml Vial) 5,000 unit SUBCUT Q12H [facility] Last Admin: 06/29/22 10:25 Dose: 5,000 unit Documented By: CARMITA Piperacillin Sod/Tazobactam (Sod 3.375 gm/ Sodium Chloride) 50 mls @ 100 mls/hr IV Q6H [facility] Last Infusion: 06/29/22 07:21 Dose: 0 mls/hr Documented By: CARMITA Doxycycline Hyclate 100 mg/ (Sodium Chloride) 250 mls @ 166.67 mls/hr IV Q12H [facility] Last Infusion: 06/29/22 02:57 Dose: 166.67 mls/hr Documented By: AYLIN Levetiracetam (Levetiracetam 500 Mg Tablet) 500 mg PO BID [facility] Last Admin: 06/29/22 10:26 Dose: 500 mg Documented By: CARMITA Levothyroxine Sodium (Levothyroxine Sodium 25 Mcg Tablet) 25 mcg PO DAILY@0630 [facility] Last Admin: 06/29/22 05:35 Dose: 25 mcg Documented By: AYLIN Lorazepam (Lorazepam 0.5 Mg Tablet) 0.5 mg PO BEDTIME [facility] Last Admin: 06/28/22 21:05 Dose: 0.5 mg Documented By: AYLIN Multivitamins/Vitamin C (Multivitamin Tablet) 1 tab PO DAILY [facility] Last Admin: 06/29/22 10:27 Dose: 1 tab Documented By: CARMITA Non-Formulary Medication (Linaclotide [Linzess]) 290 mcg PO DAILY@0730 [facility] Omeprazole (Omeprazole 20 Mg Capsule.) 20 mg PO BID@0630,1630 [facility] Last Admin: 06/29/22 05:35 Dose: 20 mg Documented By: AYLIN Ondansetron HCl (Ondansetron Hcl 4 Mg/2 Ml Vial) 4 mg IVPUSH Q8H PRN PRN Reason: Nausea and Vomiting Pharmacy Consult (Consult Rx Perform Med Rec) 1 each MISCELLANE ONCE PRN PRN Reason: Consult order Polyethylene Glycol (Polyethylene Glycol 3350 17 Gm Powd.Pack) 17 gm PO BID PRN PRN Reason: Constipation Senna (Sennosides 8.6 Mg Tablet) 17.2 mg PO BEDTIME [facility] Last Admin: 06/28/22 21:05 Dose: 17.2 mg Documented By: AYLIN Sodium Chloride (0.9 % Sodium Chloride Flush 3 Ml Syringe) 3 ml IVFLUSH QSHIFT [facility] Last Admin: 06/29/22 10:25 Dose: 3 ml Documented By: CARMITA Thiamine HCl (Thiamine Hcl 100 Mg Tablet) 100 mg PO DAILY [facility] Last Admin: 06/29/22 10:26 Dose: 100 mg Documented By: CARMITA Zinc Oxide (Zinc Oxide 20% Ointment 28.35 Gm Tube) 1 appl TOPICAL DAILY PRN PRN Reason: Wound Care Labs 06/26/22 06:24 06/26/22 09:02 Labs: Laboratory Results - last 24 hr 06/26/22 09:02 Vitamin B12 874 Folate 14.0 Microbiology Microbiology Results: Microbiology 06/25/22 Unknown Urine Culture - Final Urine clean catch - Urine gurrola top Escherichia coli Assessment and Plan (1) Aspiration into airway: Status: Acute (2) Acute UTI: Status: Acute Plan ?67-year-old male with a PMH significant for?hypothyroidism, chronic constipation, GERD, normocytic anemia, hx of failure to thrive, and schizophrenia who presents to the ED via EMS from nursing home for evaluation of possible pneumonia.? CXR negative.? UA positive for UTI and patient meets sepsis criteria.? Patient will be admitted to the hospital for treatment further evaluation of acute toxic metabolic encephalopathy in the setting of urosepsis. Acute toxic metabolic encephalopathy in the setting likely aspirtional penumonia, also positive for viral uri(entero/rhino0 d/w nursing home -mental status seems near baseline. ua -seems? boderline , urine/blood culture pendin procalcitonin levels continue IV fluids, iv doxy/zosyn (started 06/26/22). Ct scan shows -mass like area right side -added pulm eval . severe malnutrition: Patient cachectic, BMI 17.4 Nutrition following diet -noted speech/swallow note -added diet. Dysphagia/Question of esophageal diverticulum vs motality issue. seen by speech and swallow/GI/throacic surgery:added mbss and regular barium studies in nursing home he was on nectar thick liquids and pureed diet had mbss -swallow updated diet Gi-recomended ? botulin to relax achalsia?-need Gi follow up Mood disorder Continue clozapine,added clozapine levels have SI added psych/ care team eval. GERD Continue PPI Full Code DVT Prophylaxis: Heparin inpatient need :aspirtional penumonia- need iv antibiotics ,Dysphagia/Question of esophageal diverticulum vs motality issue-workup pending Time Spent With Patient Time: Total time managing care of this patient today ____ minutes. Quality Stroke Does the patient have a stroke diagnosis?: No VTE Prior VTE?: No VTE Risk Level:: Medical - moderate - high VTE Device Contraindication: Treatment Not Indicated VTE Drug Contraindication: N/A - Med Ordered
--- NOTE | 2022-06-29 10:36 | MHC.CLN ---
F/U SEEN BY SILVICULTURE PROFESSOR AND MBSS DONE 06/26. DIET=REGULAR, PUREE, NECTAR THICK LIQUIDS. SEVERE MALNUTRITION IN THE CONTEXT OF CHRONIC ILLNESS. STAGE II PRESSURE INJURY TO COCCYX. ADDING ENSURE BID TO PROVIDE ADDITIONAL 700 KCALS, 40 G PROTEIN. SUPPLEMENT TO PROMOTE WOUND HEALING AND NUTRITIONAL STATUS. PO DOC SHOWS INTAKE 06/28 100%. FOLLOW FOR INTAKE, DIET TOLERANCE, WEIGHT, AND WOUND HEALING.
--- NOTE | 2022-06-29 10:58 | MHC.SL.SWA ---
Speech Pathologist Impression: Risk of aspiration, oropharyngeal dysphagia Risk of Aspiration Due to: Medically Fragile Neurological Condition History of Pneumonia Poor PO Intake Reduced Cognition Dysphasia Diet Status: Continue [facility] [place] Clin[place] Assessment: Pt demonstrated silent aspiration on Thin Liquids via spoon size bite condition. Contrast entered the airway and no cough reflex was elicited. Cough was cued, however extent of airway clearance was uncertain due to motion artifact. Use of [place]-Thick Liquids under a single-sip condition resulted in penetration above the vocal folds that was not removed with subsequent swallows. A cued cough was successful in removing under this condition. Consecutive sips of Thin Liquids resulted in penetration above the vocal folds that was not spontaneously cleared and resulted in trace silent aspiration on subsequent swallows. Puree Solids and Ground Solids resulted in mild oral residue and moderate pharyngeal residue. Use of Ground Solids were seen to clear residue from the vallecular space more readily than in liquid condition. Based on these results I would recommend a conservative return to PO with Puree Solids and [place]-Thick Liquids. Pt will need assistance to ensure optimal positioning. He will demand total supervision to monitor for overt s/s of aspiration. He will require frequent cues from caregivers and staff to ensure use of single sip swallowing strategies. It is additionally recommended that he work with an RN CORRECTIONS to address these strategies and assess potential for further advancement of solids. Liquid Consistency and Strategies for Safe Swallow: Liquid Intake Recommendation: [place] Thick Liquid Intake Strategies: Small Sips No Straws Double Swallow Solid Food Consistency: Dietary Recommendations: Pureed (NDD1) Additional Modifications to Solid Foods: 1:1 Feeding, liquids by TSP, slower rate of ingestion: assure patient has swallowed before presenting more food or liquid, blend gravies/sauces into puree for one consistency. Do not attempt if patient is lethargic, not engaged in meal. Patient may benefit from smaller, more frequent meals given decreased appetite. Oral Medication Intake: Crushed with Puree Please contact the pharmacy regarding appropriate crushable or liquid drug formulations that are available whenever modified delivery is recommended. Compensatory Strategies and Precautions to be Taken for Safe Swallow: Sitting Upright (90 deg) Double Swallow No Straw Small Bites and Sips Rate of Ingestion Change Avoid Specific Foods Supervision While Eating and Drinking for Safe Swallow: Total Supervision (1:1) Foods to Avoid: Mixed consistencies (i.e., soups, cereal with milk, fruit cups). Swallowing Recommended Treatments: Compens. Strategy Educat. Recommendation for Speech: Inpatient Speech Therapy Speech Therapy through Rehab Facility Frequency/Duration: M-F during hospitalization Date Range for Service Req: Timeline to reassess: Laundry Agent Clinican/Clinical Fellow: No Supervisory Statement: I have reviewed and agree with the student/clinical fellow's documentation: N/A Speech Language Pathologist: Nasrin Sevilla M.A., CCC-RN CORRECTIONS
--- NOTE | 2022-06-29 12:08 | P.CONPL_ITS ---
History of Present Illness History of Present Illness Consult date: 06/29/22 Chief complaint: Urosepsis Narrative: This is an in patient pulmonary consulatation. The Pt is a 67-year-old male with a PMH significant for?hypothyroidism, chronic constipation, GERD, normocytic anemia, hx of failure to thrive, and schizophrenia who [facility] possible [facility]. Staff at facility said he had a dry cough that was similar to when he was diagnosed with pneumonia in the past. At baseline pt is alert to self only, but at time of interview patient could not provide or respond to name.? Patient does not appear to be in any acute distress, and no cough is appreciated during interview.? HPI unable to be obtained due to patient's mentation. In the ED patient was febrile up to 103.1, tachycardic up to 102, mildly hypertensive up to 141/73, and satting at 98% on RA. Labs were significant for leukocytosis of 13.1, stable anemia of 12.2/35.8.? Lactic acid WNL at 0.8 Electrolytes normal.? Renal function normal.? Hepatic function normal.? Troponin, BNP negative.? UA positive for UTI. The patient underwent a CT chest personally reviewed by me. Does have a RLL mass like consolidation, likely due to aspiration. Clinically the patient is feeling better. He failed his barium swallow with aspiration. Review of Systems Constitutional: Constitutional: Reports weight loss Eyes: Eyes: Denies change in vision Cardiovascular: Cardiovascular: Denies chest pain Respiratory: Respiratory: Reports chest congestion, Reports cough and Denies wheezing Gastrointestinal: Gastrointestinal: Reports as per HPI Musculoskeletal: Musculoskeletal: Reports no additional musculoskeletal c omplaints Psychiatric: Psychiatric: Reports as per HPI Hematologic/Lymphatic: Hematologic/Lymphatic: Denies easy bleeding Allergic/Immunologic: Allergic/Immunologic: Denies wheezing PMFSH Past Medical History Medical History (Updated 06/29/22 @ 12:16 by Rio Hinton MD) Adult failure to thrive Anemia Anxiety Aspiration pneumonia Asthma COPD (chronic obstructive pulmonary disease) COVID-19 Depression Dysphagia GERD (gastroesophageal reflux disease) Hypothyroid Impaired glucose tolerance Mentally challenged Metabolic encephalopathy MVP (mitral valve prolapse) Oropharyngeal dysphagia Paraparesis Pneumonia Schizophrenia Tracheomalacia Tubular adenoma of colon Family History Family History Family/Other Unknown family medical history Father Hypertension Mother Unknown family medical history Brother No problems noted. Sister No problems noted. Family history: reviewed and not pertinent Surgical History Surgical History (Updated 06/29/22 @ 09:10 by Keiry Hickey PA-C) History of bronchoscopy History of colonoscopy History of esophagogastroduodenoscopy (EGD) S/P tracheoplasty Social History Social History Household Members: Other Household Members Other:: Resides in Residential Housing: Other Housing Other:: prison Are you a primary palliative care coordinator to a significant other at home: No Unable to assess alcohol history related to: Unable to respond and Unknown Alcohol intake: never Patient Tobacco Use Status: Never used Tobacco Smoked in Last 30 Days: No e-Cigarette/Vaping Use: Never Used Second Hand Smoke Exposure: No Use of substances other than those prescribed or required for medical reasons: No Currently Displaying Signs/Symptoms of Drug Intoxication Withdrawal: No Advance Directives: Yes Advance Directives on File: Yes Advance Directives Date on File: 11/28/20 Healthcare Proxy: Yes Guardian: No service: No Current occupational status: disabled Cognitive needs: Yes Hearing needs: No Vision needs: No Meds Allergies Allergy/AdvReac Type Severity Reaction Status Date / Time clindamycin Allergy Unknown Unknown Verified 06/09/22 10:12 Sulfa (Sulfonamide Allergy Unknown UNKNOWN Verified 06/09/22 10:12 Antibiotics) [SULFA(SULFONAMIDE ANTIBIOTICS)] sulfamethoxazole Allergy Unknown Unknown Verified 06/09/22 10:12 [From Bactrim] trimethoprim [From Bactrim] Allergy Unknown Unknown Verified 06/09/22 10:12 Active Medications: Current Medications Acetaminophen (Acetaminophen 325 Mg Tablet) 650 mg PO Q6H PRN PRN Reason: Pain, Mild (Pain Scale 1-3) Last Admin: 06/28/22 00:55 Dose: 650 mg Artificial Tears (Artificial Tears 15 Ml Drops) 1 drop EYE-BOTH Q2H PRN PRN Reason: Dry Eye(S) Last Admin: 06/28/22 21:13 Dose: 1 drop Artificial Tears (Artificial Tears 15 Ml Drops) 1 drop EYE-BOTH QID [facility] Last Admin: 06/29/22 10:27 Dose: 1 drop Ascorbic Acid (Ascorbic Acid 500 Mg Tablet) 500 mg PO DAILY [facility] Last Admin: 06/29/22 10:27 Dose: 500 mg Clozapine (Clozapine 25 Mg Tablet) 25 mg PO DAILY [facility] Last Admin: 06/29/22 10:26 Dose: 25 mg Clozapine (Clozapine 100 Mg Tablet) 200 mg PO BEDTIME [facility] Last Admin: 06/28/22 21:05 Dose: 200 mg Clozapine (Clozapine 25 Mg Tablet) 50 mg PO BEDTIME [facility] Last Admin: 06/28/22 21:05 Dose: 50 mg Cyanocobalamin (Cyanocobalamin (Vitamin B-12) 1,000 Mcg Tablet) 1,000 mcg PO DAILY [facility] Last Admin: 06/29/22 10:27 Dose: 1,000 mcg Desmopressin Acetate (Desmopressin Acetate 0.2 Mg Tablet) 0.1 mg PO BID [facility] Last Admin: 06/29/22 10:26 Dose: 0.1 mg Docusate Sodium (Docusate Sodium 100 Mg Capsule) 100 mg PO DAILY PRN PRN Reason: Constipation Fluoxetine HCl (Fluoxetine Hcl 20 Mg Capsule) 40 mg PO DAILY [facility] Last Admin: 06/29/22 10:27 Dose: 40 mg Heparin Sodium (Porcine) (Heparin Sodium,Porcine 5,000 Unit/Ml Vial) 5,000 unit SUBCUT Q12H [facility] Last Admin: 06/29/22 10:25 Dose: 5,000 unit Piperacillin Sod/Tazobactam (Sod 3.375 gm/ Sodium Chloride) 50 mls @ 100 mls/hr IV Q6H [facility] Last Infusion: 06/29/22 07:21 Dose: Infused Doxycycline Hyclate 100 mg/ (Sodium Chloride) 250 mls @ 166.67 mls/hr IV Q12H [facility] Last Infusion: 06/29/22 02:57 Dose: Infused Levetiracetam (Levetiracetam 500 Mg Tablet) 500 mg PO BID [facility] Last Admin: 06/29/22 10:26 Dose: 500 mg Levothyroxine Sodium (Levothyroxine Sodium 25 Mcg Tablet) 25 mcg PO DAILY@0630 [facility] Last Admin: 06/29/22 05:35 Dose: 25 mcg Lorazepam (Lorazepam 0.5 Mg Tablet) 0.5 mg PO BEDTIME [facility] Last Admin: 06/28/22 21:05 Dose: 0.5 mg Multivitamins/Vitamin C (Multivitamin Tablet) 1 tab PO DAILY [facility] Last Admin: 06/29/22 10:27 Dose: 1 tab Non-Formulary Medication (Linaclotide [Linzess]) 290 mcg PO DAILY@0730 [facility] Omeprazole (Omeprazole 20 Mg Capsule.Dr) 20 mg PO BID@0630,1630 [facility] Last Admin: 06/29/22 05:35 Dose: 20 mg Ondansetron HCl (Ondansetron Hcl 4 Mg/2 Ml Vial) 4 mg IVPUSH Q8H PRN PRN Reason: Nausea and Vomiting Pharmacy Consult (Consult Rx Perform Med Rec) 1 each MISCELLANE ONCE PRN PRN Reason: Consult order Polyethylene Glycol (Polyethylene Glycol 3350 17 Gm Powd.Pack) 17 gm PO BID PRN PRN Reason: Constipation Senna (Sennosides 8.6 Mg Tablet) 17.2 mg PO BEDTIME [facility] Last Admin: 06/28/22 21:05 Dose: 17.2 mg Sodium Chloride (0.9 % Sodium Chloride Flush 3 Ml Syringe) 3 ml IVFLUSH QSHIFT [facility] Last Admin: 06/29/22 10:25 Dose: 3 ml Thiamine HCl (Thiamine Hcl 100 Mg Tablet) 100 mg PO DAILY [facility] Last Admin: 06/29/22 10:26 Dose: 100 mg Zinc Oxide (Zinc Oxide 20% Ointment 28.35 Gm Tube) 1 appl TOPICAL DAILY PRN PRN Reason: Wound Long-Term Medications Medication Instructions Recorded Confirmed Last Taken Type clozapine 100 mg tablet 200 mg PO BEDTIME 11/27/20 06/25/22 06/24/22 History fluoxetine 20 mg capsule 40 mg PO DAILY 11/27/20 06/25/22 06/25/22 History clozapine 25 mg tablet 50 mg PO BEDTIME 08/13/21 06/25/22 06/24/22 History triamcinolone acetonide 0.1 % 1 appl topical BID 10/10/21 06/25/22 10/10/21 History topical cream lorazepam 0.5 mg tablet 0.5 mg PO BEDTIME 10/19/21 06/25/22 Unknown History polyethylene glycol 3350 17 17 g PO BID PRN Constipation 10/19/21 06/25/22 Unknown History gram/dose oral powder acetaminophen 650 mg 650 mg PO Q6H PRN PAIN/FEVER 05/19/22 06/25/22 Unknown History tablet,extended release (Tylenol 8 Hour) clozapine 25 mg tablet 25 mg PO DAILY 05/19/22 06/25/22 06/25/22 History flaxseed oil 1,000 mg capsule 1,000 mg PO DAILY 05/19/22 06/25/22 06/25/22 History propylene glycol 1 %-glycerin 0.3 1 drp ophthalmic (eye) Q2H PRN Dry 06/25/22 06/25/22 Unknown History % eye drops (Artificial Tears Eye(S) (glycerin-peg)) propylene glycol 1 %-glycerin 0.3 1 drp ophthalmic (eye) QID 06/25/22 06/25/22 Unknown History % eye drops (Artificial Tears (glycerin-peg)) zinc oxide 1 appl topical DAILY PRN Wound Care 06/25/22 06/25/22 Unknown History Physical Exam Vital Signs: Vital Signs: Last Vital Signs Temp 97.2 F 06/29/22 07:06 Pulse 80 06/29/22 07:06 Resp 20 06/29/22 07:06 BP 115/85 06/29/22 07:06 Pulse Ox 100 06/29/22 07:06 O2 Del Method Room Air 06/29/22 07:06 BMI result Body Mass Index 17.4 Appearance: Alert.? cvs: rrr, [id number] res: air entry diminshded right upper lobe and left lower lobe , + rhonchii in right abd: no rebound or guarding ,nt, bs present. ext pulses present , no cyanosis . neuro:follows few commands -able to lift arms ,wiggle toes . has foot drop(likley chronic) Results Laboratory Findings 06/26/22 06:24 06/26/22 09:02 ABG, PT/INR, D-dimer: PT/INR, D-dimer PT 12.3 SEC (10.0-13.1) 06/25/22 14: INR 1.1 (0.9-1.1) 06/25/22 14:22 Abnormal lab findings: Abnormal Labs 06/25/22 06/25/22 06/25/22 14:22 14:22 14:30 WBC 13.1 H RBC 4.02 L Hgb 12.2 L Hct 35.8 L Neut % (Auto) 95.0 H Lymph % (Auto) 1.4 L Lymph # (Auto) 0.2 L Abs Immat Gran (auto) 0.05 H Absolute Neuts (auto) 12.4 H VBG pH 7.47 H VBG HCO3 27 H Anion Gap 11 L Urine Nitrite Ur Leukocyte Esterase Urine RBC Entero/Rhino (PCR) 06/25/22 06/26/22 06/26/22 16:59 06:24 08:53 WBC RBC 3.57 L Hgb 10.8 L Hct 32.8 L Neut % (Auto) Lymph % (Auto) Lymph # (Auto) Abs Immat Gran (auto) Absolute Neuts (auto) VBG pH VBG HCO3 Anion Gap Urine Nitrite Positive H Ur Leukocyte Esterase Trace H Urine RBC 3-5 H Entero/Rhino (PCR) Detected A Microbiology: Microbiology 06/25/22 Unknown Urine clean catch - Urine gurrola top Urine Culture - Final Escherichia coli 06/25/22 14:47 Blood - Venous Blood Culture - Preliminary No growth after 48 hours. 06/25/22 15:11 Blood - Venous Blood Culture - Preliminary No growth after 48 hours. Assessment and Plan (1) Aspiration into airway: Status: Acute (2) COPD (chronic obstructive pulmonary disease): Qualifiers: COPD type: emphysema Emphysema type: panlobular Qualified Code(s): J43.1 - Panlobular emphysema Status: Acute (3) Aspiration pneumonia: Status: Acute masslike consolidation due to aspiration. can not r/o foreign body, but clinically responding to therapy. (4) Dysphagia: Status: Acute Plan continue broad spectrum antibiotics Keep NPO with high risk aspiration repeat CXR in the AM sleep with HOB elevated Time Spent With Patient Time: Total time managing care of this patient today ____ minutes. Procedures Date of Service Date of Service: 06/29/22
--- NOTE | 2022-06-29 13:03 | P.CONWO_ITS ---
History of Present Illness Data of Consult Service Date: 06/29/22 Requesting physician: Art Coughlin Primary Care Provider: Briana Reeves MD [facility] Reason for consult: full thickness buttock ulcer [id number]: 67-year-old male who was evaluated in the wound clinic and felt to have left buttock friction shear injury but at the time degree of incontinence was known but not completely understood. Today in the hospital he is laying in await brief and he has urinated through his jeans. Because of his history of mental illness, he is a bit perseverative on wearing proper pants. Other cli nical information is difficult to obtain in the setting of schizophrenia. He is disoriented and thinks he is at home. [facility] Medical History (Updated 06/29/22 @ 13:06 by LOWELL Sepulveda) Adult failure to thrive Anemia Anxiety Aspiration pneumonia Asthma COPD (chronic obstructive pulmonary disease) COVID-19 Depression Dysphagia GERD (gastroesophageal reflux disease) Hypothyroid Impaired glucose tolerance Mentally challenged Metabolic encephalopathy MVP (mitral valve prolapse) Oropharyngeal dysphagia Paraparesis Pneumonia Schizophrenia Tracheomalacia Tubular adenoma of colon Family History Family/Other Unknown family medical history Father Hypertension Mother Unknown family medical history Brother No problems noted. Sister No problems noted. Surgical History (Updated 06/29/22 @ 09:10 by Keiry Hickey PA-C) History of bronchoscopy History of colonoscopy History of esophagogastroduodenoscopy (EGD) S/P tracheoplasty Social History Household Members: Other Household Members Other:: Resides in Care Home Housing: Other Housing Other:: assisted Are you a primary ambulatory care coordinator to a significant other at home: No Unable to assess alcohol history related to: Unable to respond and Unknown Alcohol intake: never Patient Tobacco Use Status: Never used Tobacco Smoked in Last 30 Days: No e-Cigarette/Vaping Use: Never Used Second Hand Smoke Exposure: No Use of substances other than those prescribed or required for medical reasons: No Currently Displaying Signs/Symptoms of Drug Intoxication Withdrawal: No Advance Directives: Yes Advance Directives on File: Yes Advance Directives Date on File: 11/28/20 Healthcare Proxy: Yes Guardian: No service: No Current occupational status: disabled Cognitive needs: Yes Hearing needs: No Vision needs: No Meds Allergies Allergy/AdvReac Type Severity Reaction Status Date / Time clindamycin Allergy Unknown Unknown Verified 06/09/22 10:12 Sulfa (Sulfonamide Allergy Unknown UNKNOWN Verified 06/09/22 10:12 Antibiotics) [SULFA(SULFONAMIDE ANTIBIOTICS)] sulfamethoxazole Allergy Unknown Unknown Verified 06/09/22 10:12 [From Bactrim] trimethoprim [From Bactrim] Allergy Unknown Unknown Verified 06/09/22 10:12 Active Medications: Current Medications Acetaminophen (Acetaminophen 325 Mg Tablet) 650 mg PO Q6H PRN PRN Reason: Pain, Mild (Pain Scale 1-3) Last Admin: 06/28/22 00:55 Dose: 650 mg Artificial Tears (Artificial Tears 15 Ml Drops) 1 drop EYE-BOTH Q2H PRN PRN Reason: Dry Eye(S) Last Admin: 06/28/22 21:13 Dose: 1 drop Artificial Tears (Artificial Tears 15 Ml Drops) 1 drop EYE-BOTH QID [facility] Last Admin: 06/29/22 10:27 Dose: 1 drop Ascorbic Acid (Ascorbic Acid 500 Mg Tablet) 500 mg PO DAILY [facility] Last Admin: 06/29/22 10:27 Dose: 500 mg Clozapine (Clozapine 25 Mg Tablet) 25 mg PO DAILY [facility] Last Admin: 06/29/22 10:26 Dose: 25 mg Clozapine (Clozapine 100 Mg Tablet) 200 mg PO BEDTIME [facility] Last Admin: 06/28/22 21:05 Dose: 200 mg Clozapine (Clozapine 25 Mg Tablet) 50 mg PO BEDTIME [facility] Last Admin: 06/28/22 21:05 Dose: 50 mg Cyanocobalamin (Cyanocobalamin (Vitamin B-12) 1,000 Mcg Tablet) 1,000 mcg PO DAILY [facility] Last Admin: 06/29/22 10:27 Dose: 1,000 mcg Desmopressin Acetate (Desmopressin Acetate 0.2 Mg Tablet) 0.1 mg PO BID [facility] Last Admin: 06/29/22 10:26 Dose: 0.1 mg Docusate Sodium (Docusate Sodium 100 Mg Capsule) 100 mg PO DAILY PRN PRN Reason: Constipation Fluoxetine HCl (Fluoxetine Hcl 20 Mg Capsule) 40 mg PO DAILY [facility] Last Admin: 06/29/22 10:27 Dose: 40 mg Heparin Sodium (Porcine) (Heparin Sodium,Porcine 5,000 Unit/Ml Vial) 5,000 unit SUBCUT Q12H [facility] Last Admin: 06/29/22 10:25 Dose: 5,000 unit Piperacillin Sod/Tazobactam (Sod 3.375 gm/ Sodium Chloride) 50 mls @ 100 mls/hr IV Q6H [facility] Last Infusion: 06/29/22 07:21 Dose: Infused Doxycycline Hyclate 100 mg/ (Sodium Chloride) 250 mls @ 166.67 mls/hr IV Q12H [facility] Last Infusion: 06/29/22 02:57 Dose: Infused Levetiracetam (Levetiracetam 500 Mg Tablet) 500 mg PO BID [facility] Last Admin: 06/29/22 10:26 Dose: 500 mg Levothyroxine Sodium (Levothyroxine Sodium 25 Mcg Tablet) 25 mcg PO DAILY@0630 [facility] Last Admin: 06/29/22 05:35 Dose: 25 mcg Lorazepam (Lorazepam 0.5 Mg Tablet) 0.5 mg PO BEDTIME [facility] Last Admin: 06/28/22 21:05 Dose: 0.5 mg Multivitamins/Vitamin C (Multivitamin Tablet) 1 tab PO DAILY [facility] Last Admin: 06/29/22 10:27 Dose: 1 tab Non-Formulary Medication (Linaclotide [Linzess]) 290 mcg PO DAILY@0730 [facility] Omeprazole (Omeprazole 20 Mg Capsule.Dr) 20 mg PO BID@0630,1630 [facility] Last Admin: 06/29/22 05:35 Dose: 20 mg Ondansetron HCl (Ondansetron Hcl 4 Mg/2 Ml Vial) 4 mg IVPUSH Q8H PRN PRN Reason: Nausea and Vomiting Pharmacy Consult (Consult Rx Perform Med Rec) 1 each MISCELLANE ONCE PRN PRN Reason: Consult order Polyethylene Glycol (Polyethylene Glycol 3350 17 Gm Powd.Pack) 17 gm PO BID PRN PRN Reason: Constipation Senna (Sennosides 8.6 Mg Tablet) 17.2 mg PO BEDTIME [facility] Last Admin: 06/28/22 21:05 Dose: 17.2 mg Sodium Chloride (0.9 % Sodium Chloride Flush 3 Ml Syringe) 3 ml IVFLUSH QSHIFT [facility] Last Admin: 06/29/22 10:25 Dose: 3 ml Thiamine HCl (Thiamine Hcl 100 Mg Tablet) 100 mg PO DAILY [facility] Last Admin: 06/29/22 10:26 Dose: 100 mg Zinc Oxide (Zinc Oxide 20% Ointment 28.35 Gm Tube) 1 appl TOPICAL DAILY PRN PRN Reason: Wound Care Zinc Oxide (Zinc Oxide (Triple Paste) 56.7 Gm Oint) 1 appl TOPICAL Q48H LEN; Protocol Home Medications Medication Instructions Recorded Confirmed Last Taken Type clozapine 100 mg tablet 200 mg PO BEDTIME 11/27/20 06/25/22 06/24/22 History fluoxetine 20 mg capsule 40 mg PO DAILY 11/27/20 06/25/22 06/25/22 History clozapine 25 mg tablet 50 mg PO BEDTIME 08/13/21 06/25/22 06/24/22 History triamcinolone acetonide 0.1 % 1 appl topical BID 10/10/21 06/25/22 10/10/21 History topical cream lorazepam 0.5 mg tablet 0.5 mg PO BEDTIME 10/19/21 06/25/22 Unknown History polyethylene glycol 3350 17 17 g PO BID PRN Constipation 10/19/21 06/25/22 Unk nown History gram/dose oral powder acetaminophen 650 mg 650 mg PO Q6H PRN PAIN/FEVER 05/19/22 06/25/22 Unknown History tablet,extended release (Tylenol 8 Hour) clozapine 25 mg tablet 25 mg PO DAILY 05/19/22 06/25/22 06/25/22 History flaxseed oil 1,000 mg capsule 1,000 mg PO DAILY 05/19/22 06/25/22 06/25/22 History propylene glycol 1 %-glycerin 0.3 1 drp ophthalmic (eye) Q2H PRN Dry 06/25/22 06/25/22 Unknown History % eye drops (Artificial Tears Eye(S) (glycerin-peg)) propylene glycol 1 %-glycerin 0.3 1 drp ophthalmic (eye) QID 06/25/22 06/25/22 Unknown History % eye drops (Artificial Tears (glycerin-peg)) zinc oxide 1 appl topical DAILY PRN Wound Care 06/25/22 06/25/22 Unknown History Physical Exam Vital Signs and Narrative: Vital Signs: Last Vital Signs Temp 97.2 F 06/29/22 07:06 Pulse 80 06/29/22 07:06 Resp 20 06/29/22 07:06 BP 115/85 06/29/22 07:06 Pulse Ox 100 06/29/22 07:06 O2 Del Method Room Air 06/29/22 07:06 BMI result Body Mass Index 17.4 He is relatively cooperative and follows instructions. His left buttock ulcer is largely unchanged, full-thickness. There is some preserved blanching of the periwound and this is not convincing for pressure ulcer although it could be playing a role he has fairly good changing his position independently. Is more likely a combination of incontinence and friction/shear contributing to nonhealing. This is why zinc oxide is a reasonable approach to protect the periwound. See orders. Results Labs 06/26/22 06:24 06/26/22 09:02 Assessment and Plan (1) Dermatitis, unspecified: Status: Acute Plan 67-year-old male with schizophrenia and left buttock ulcer, followed as an outpatient wound clinic patient. Cut silver alginate to fit the open area. Surround with zinc oxide ordered by the hospitalist. In the setting of incontinence, Allevyn foam as a secondary dressing is reasonable approach. Time Spent With Patient Time: Total time managing care of this patient today ____ minutes.
[2022-06-29] MEDS: Zinc Oxide (Triple Paste) 56.7 GM OINT 1 APPL TOPICAL (13:23)
[2022-06-29 15:52] VITALS: BP 115/85; PULSE 80; O2SAT 100
--- NOTE | 2022-06-29 15:53 | MHC.CM.PN ---
per rounds pt not ready for dc dc plan remanis return to intermediate
[2022-06-29 16:00] VITALS: BP 140/65; PULSE 73; RESP 20; TEMP 36.6; O2SAT 98
[2022-06-29 19:55] VITALS: BP 113/61; PULSE 67; RESP 18; TEMP 36.2; O2SAT 96
[2022-06-29] MEDS: cloZAPine 25 MG TABLET 50 MG PO (20:42)
[2022-06-29] MEDS: Sennosides 8.6 MG TABLET 17.2 MG PO (20:42)
[2022-06-29] MEDS: cloZAPine 100 MG TABLET 200 MG PO (20:42)
[2022-06-29] MEDS: LORazepam 0.5 MG TABLET PO (20:43)
[2022-06-30] MEDS: Piperacillin Sodium/Tazobactam 3.375 GM in 0.9 % Sodium Chloride 50 ML IV ×2 (00:38→06:14)
[2022-06-30] MEDS: Doxycycline Hyclate 100 MG in 0.9 % Sodium Chloride 250 ML 166.67 MG IV (02:47)
[2022-06-30 04:00] VITALS: BP 139/72; PULSE 75; RESP 17; TEMP 36.3; O2SAT 91
[2022-06-30 05:10] LABS: Hematocrit 33.4 % (42.0-52.0); Hemoglobin 10.7 g/dl (14.0-18.0); Mean Corpuscular Hemoglobin 30.9 pg (27.0-33.0); Mean Corpuscular Volume 96.5 fL (80.0-98.0); Mean Platelet Volume 10.3 fL (9.4-12.4); Platelet Count 208 X10*3/uL (160-400); Red Blood Count 3.46 X10*6/uL (4.60-5.80); Red Cell Distribution Width 14.8 % (11.0-16.0); White Blood Count 6.8 X10*3/uL (4.8-10.8)
[2022-06-30 05:28] LABS: Anion Gap 14 (12-20); Blood Urea Nitrogen 9 mg/dL (9-16); Calcium 9.1 mg/dL (8.4-10.2); Carbon Dioxide 20 mmol/L (22-29); Chloride 109 mmol/L (96-108); Estimated Glomerular Filt Rate > 60; Glucose Random 83 mg/dL (60-115); Potassium 4.4 mmol/L (3.3-5.1); Sodium 139 mmol/L (135-145)
[2022-06-30] MEDS: Omeprazole 20 MG CAPSULE.DR PO (06:07)
[2022-06-30] MEDS: Levothyroxine Sodium 25 MCG TABLET PO (06:07)
[2022-06-30 08:00] VITALS: BP 115/59; PULSE 75; RESP 20; TEMP 36.2; O2SAT 75
[2022-06-30] MEDS: Desmopressin Acetate 0.2 MG TABLET 0.1 MG PO (08:00)
[2022-06-30] MEDS: Heparin Sodium,Porcine 5,000 UNIT/ML VIAL 5000 UNIT SUBCUT (08:00)
[2022-06-30] MEDS: cloZAPine 25 MG TABLET PO (08:01)
[2022-06-30] MEDS: Cyanocobalamin (Vitamin B-12) 1,000 MCG TABLET 1000 MCG PO (08:01)
[2022-06-30] MEDS: levETIRAcetam 500 MG TABLET PO (08:01)
[2022-06-30] MEDS: Ascorbic Acid 500 MG TABLET PO (08:01)
[2022-06-30] MEDS: 0.9 % Sodium Chloride Flush 3 ML SYRINGE IVFLUSH (08:01)
[2022-06-30] MEDS: Multivitamin TABLET 1 TAB PO (08:01)
[2022-06-30] MEDS: Thiamine HCL 100 MG TABLET PO (08:01)
[2022-06-30] MEDS: FLUoxetine HCl 20 MG CAPSULE 40 MG PO (08:01)
[2022-06-30] MEDS: Artificial Tears 15 ML DROPS 1 DROP EYE-BOTH (08:02)
[2022-06-30 08:54] VITALS: BP 115/59; PULSE 75; O2SAT 95
--- NOTE | 2022-06-30 10:18 | P.DS_ITS ---
DS: Providers Provider Date of Service: 06/30/22 Date of admission: 06/25/22 19:16 Primary care physician: Briana Reeves MD Consults: 06/26/22 09:55 Consult to Infectious Diseases Routine Consulting Provider: [facility] Infectious Disease Reason for consultation: fuo Has provider been notified: No Consult to Neurology Routine Consulting Provider: [facility] Reason for consultation: encepahlopathy,dysphagia ? neuromuscular in origin Has provider been notified: No 06/26/22 11:12 Consult to Gastroenterology Routine Consulting Provider: [facility] Gastroenterology Services Reason for consultation: aspiration pneumonia -?esophageal achalsia/diverticulum Has provider been notified: No 06/26/22 12:18 Consult to Wound Care Routine Consulting Provider: [facility] Wound Care Management Reason for consultation: sacral wound Has provider been notified: No 06/26/22 13:42 Consult to Thoracic Surgery Routine Consulting Provider: [facility] Thoracic Surgeons Reason for consultation: aspiratio pneumonia -with large esophageus diverticulum Has provider been notified: No 06/28/22 09:35 Consult to Care Team Routine Comment: Reason for consultation: succidal ideation Consult to Psychiatry Routine Consulting Provider: Psych [facility] Reason for consultation: schizophrenia ,anxiety , ? SI Has provider been notified: No 06/29/22 10:24 Consult to Pulmonology Routine Consulting Provider: [facility] Pulmonology Services Reason for consultation: pneumonia , possible pulmonary mass? malignancy Has provider been notified: No DS: Diagnosis Discharge Diagnosis (1) Aspiration pneumonia: Status: Acute (2) Hypoxia: Status: Acute (3) Dysphagia: Status: Acute (4) Esophageal diverticulum: Status: Acute (5) Failure to thrive in adult: Status: Acute (6) Sepsis: Status: Acute (7) Acute UTI: Status: Acute (8) Pressure ulcer: Status: Acute DS: Summary Hospital Course Hospital Course: Admission note HPI Pt is a 67-year-old male with a PMH significant for?hypothyroidism, chronic constipation, GERD, normocytic anemia, hx of failure to thrive, and schizophrenia who presents to the ED via EMS from long term for evaluation of possible pneumonia. Staff at facility said he had a dry cough that was similar to when he was diagnosed with pneumonia in the past. At baseline pt is alert to self only, but at time of interview patient could not provide or respond to name.? Patient does not appear to be in any acute distress, and no cough is appreciated during interview.? HPI unable to be obtained due to patient's mentation. In the ED patient was febrile up to 103.1, tachycardic up to 102, mildly hypertensive up to 141/73, and satting at 98% on RA. Labs were significant for leukocytosis of 13.1, stable anemia of 12.2/35.8.? Lactic acid WNL at 0.8 Electrolytes normal.? Renal function normal.? Hepatic function normal.? Troponin, BNP negative.? UA positive for UTI. CXR showed no acute cardiopulmonary process. EKG demonstrated normal sinus rhythm with no evidence of ST elevations or depressions. Pt was treated with acetaminophen, IVF, and Zosyn. Pt will be admitted to the hospital for treatment and further evaluation of urosepsis with IVF and IV antibiotics. Hospital course Acute toxic metabolic encephalopathy in the setting of sepsis 2/2 urine infection, aspirtional penumonia, also positive for viral entero/rhino as CT scan of chest showed increase LLL consolidation. treated with IV antibiotics of Doxycycline and Zosyn as he was weaned off oxygen supplement to room air, blood cultures remained negative. Mental status improved back to baseline as he was able to ambulate with PT who recommended to go back to long term to use his walker. evaluated by cable installer repairer helper who recommended aspiration precautions and antibiotics. Noted to be in severe malnutrition evaluated by white metal caster who recommended Ensure supplement as he is cachectic with BMI 17.4. He was evaluated for Dysphagia with a Question of? esophageal diverticulum vs motality issue. seen by speech and swallow/GI/throacic surgery and had an MBSS study showing aspiration with thin liquids but normal propagation of budding with no aspiration. TUFTING CREELER recommended nectar thick liquids and pureed diet. Seen by GI team who recommended outpatient follow up for possible intervention. Reported to have suicidal ideation at time of presentation which he denies and reports he was feeling anxious and afraid. evaluated by care team who cleared him from the need of inpatient psychiatry admission. Evaluated by wound care team for Left gluteal pressure wound. need dressing daily with silver alginate and rotation every 2 hours to prevent worsening with an outpatient wound care follow up. Continue antibiotics as prescribed modified diet nectar thick liquids and pureed diet Add Ensure for malnutrition aspiration precautions all the time Sit up upon mealtime and remain up 1 hour after To follow with PCP as outpatient Rotate every 2 hours. wound care for the left buttock ulcer Time Spent with Patient Time attestation: Total time managing care of this patient today ____ minutes. Discharge coordination time: Greater than 30 minutes Quality: Safe Use of Opioids Does Pt have an Active Cancer Diagnosis on the Problem List?: No Quality: Stroke Does the patient have a stroke diagnosis?: No Physical Exam Vital Signs: Vital Signs: Last Vital Signs Temp 97.2 F 06/30/22 08:00 Pulse 75 06/30/22 08:54 Resp 20 06/30/22 08:00 BP 115/59 L 06/30/22 08:54 Pulse Ox 95 06/30/22 08:54 O2 Del Method Room Air 06/30/22 08:00 BMI result Body Mass Index 17.4 Const: Other: Constitutional : Awake, interactive, not in distress Neck : Normal inspection, Supple Cardiovascular : RRR, no JVP, no lower extremity edema Respiratory : good bilateral air entry, no crackles Gastrointestinal: soft, lax, Normal bowel sounds, Non tender Skin : Warm, Dry, Left gluteal wound Neurological : Alert & disoriented, No focal deficit DS: Data Data Completed and Pending Labs on day of discharge: Laboratory Results - last 24 hr 06/30/22 06/30/22 04:03 04:03 WBC 6.8 RBC 3.46 L Hgb 10.7 L Hct 33.4 L MCV 96.5 MCH 30.9 MCHC 32.0 RDW 14.8 Plt Count 208 MPV 10.3 Absolute Nucleated RBC 0.000 Nucleated RBC % (auto) 0.0 Sodium 139 Potassium 4.4 Chloride 109 H Carbon Dioxide 20 L Anion Gap 14 BUN 9 Creatinine 0.84 Estim Creat Clear Calc 53.0 Estimated GFR > 60 Random Glucose 83 Calcium 9.1 Preliminary micro results at discharge 06/25/22 14:47 Blood Culture - Preliminary Blood - Venous No growth after 48 hours. 06/25/22 15:11 Blood Culture - Preliminary Blood - Venous No growth after 48 hours. Imaging Chest x-ray: Radiologist's impression: ITS Impressions Chest X-Ray 06/25/22 14:50 IMPRESSION: Chronic changes without significant change. No acute cardiopulmonary process. Chest CT 06/26/22 08:51 IMPRESSION: 1. Thoracic CT demonstrates increasing confluence of masslike consolidation in the superior segment of the right lower lobe and new patchy airspace opacities in the posterior right costophrenic sulcus. 2. Improved but persistent consolidation in the left lower lobe. 3. Distended esophagus with a large left lateral esophageal diverticulum. Findings suggest esophageal dysmotility, perhaps achalasia, raising aspiration pneumonitis as the etiology of the patient's bilateral pulmonary opacities. Fleischner guidelines were followed. Head CT 06/26/22 08:51 IMPRESSION: 1. No acute hemorrhage, mass effect or shift and no significant change since 10/10/2021. 2. Atrophy and ventriculomegaly, with volume loss most prominent in the frontal lobes, unchanged. Modified Barium Swallow 06/26/22 15:02 IMPRESSION: Duane laryngeal aspiration with thin barium. There is normal propagation of bolus barium coated pudding and cookie coated barium without laryngeal penetration or aspiration. Chest X-Ray 06/30/22 07:41 IMPRESSION: 1. Right parahilar soft tissue density likely pneumonia. This was visualized on the CT chest exam 06/26/2022. 2. Old healed right posterior fifth rib fracture. Discharge Plan Discharge Anticipated Discharge Date/Time: 06/30/22 09:52 Patient Disposition: Home, Self-Care Discharge Diagnosis: Aspiration pneumonia Swallowing problem Referrals: long term [Other] - 1 Week Po,Briana Umanzor MD [Primary Care Provider] - 1 Week Discharge Medications: New Triple Paste 12.8 % Ointment 1 appl topical Q48H 14 Days Qty: 227 0RF Protocol: Apply to: Apply to: use with dressing chnage doxycycline monohydrate 100 mg capsule 100 mg PO BID Qty: 10 0RF amoxicillin-pot clavulanate 400-57 mg/5 mL suspension for reconstitution 10 ml PO BID Qty: 100 0RF Continued desmopressin 0.1 mg tablet 0.1 mg PO BID 90 Days Qty: 180 1RF (DME) right AFO See Rx Instructions .Route .MEDSUPPLY Qty: 1 0RF Rx Instructions: As directed levetiracetam 500 mg tablet 500 mg PO BID Qty: 60 5RF ascorbic acid (vitamin C) [Vitamin C] 500 mg tablet 500 mg PO DAILY Qty: 90 3RF levothyroxine 25 mcg tablet 25 mcg PO DAILY Qty: 30 0RF senna 8.6 mg capsule 17.2 mg PO BEDTIME Qty: 60 6RF ondansetron HCl 8 mg tablet 8 mg PO BID PRN (Reason: nausea and vomiting) Qty: 20 0RF fluoxetine 20 mg capsule 40 mg PO DAILY lorazepam 0.5 mg tablet 0.5 mg PO BEDTIME polyethylene glycol 3350 17 gram/dose powder 17 g PO BID PRN (Reason: Constipation) triamcinolone acetonide 0.1 % Cream 1 appl TOPICAL BID Artificial Tears(glycerin-peg) 1-0.3 % Drops 1 drp OPHTHALMIC (EYE) QID Artificial Tears(glycerin-peg) 1-0.3 % Drops 1 drp OPHTHALMIC (EYE) Q2H PRN (Reason: Dry Eye(S)) zinc oxide Ointment 1 appl TOPICAL DAILY PRN (Reason: Wound Care) (DME) pull ups small See Rx Instructions .Route .MEDSUPPLY Qty: 100 11RF Rx Instructions: As directed clozapine 100 mg tablet 200 mg PO BEDTIME clozapine 25 mg tablet 50 mg PO BEDTIME acetaminophen [Tylenol 8 Hour] 650 mg tablet extended release 650 mg PO Q6H PRN (Reason: PAIN/FEVER) flaxseed oil 1,000 mg capsule 1,000 mg PO DAILY Rx Instructions: administer with a meal clozapine 25 mg tablet 25 mg PO DAILY Linzess 290 mcg capsule 290 mcg PO DAILY Qty: 30 6RF omeprazole 20 mg capsule,delayed release(DR/EC) 20 mg PO BID@0630,1630 Qty: 60 6RF Discharge Orders: Discharge Order (Routine); Ordered 06/30/22 Ordered By: Kady Gómez Diet: Advance to usual diet Activity on Discharge: As tolerated Stand Alone Forms: Patient Portal Discharge page Care Plan Goals: Read below Health Concerns: Read below Plan of Treatment: Read below Assessment: You were admitted to the hospital for evaluation of altered mentation and difficulties breathing from aspiration pneumonia treated with IV antibiotics with good response over the course of hospital stay. Seen by speech therapist who recommended modified diet of nectar thick liquids and pureed diet as you tolerated swallowing study. Care team evaluated you and felt you can be discharged back to long term. Continue antibiotics as prescribed modified diet nectar thick liquids and pureed diet Add Ensure for malnutrition aspiration precautions all the time Sit up upon mealtime and remain up 1 hour after To follow with PCP as outpatient Rotate every 2 hours. wound care for the left buttock ulcer Discharge Date/Time: 06/30/22 14:22
--- NOTE | 2022-06-30 10:53 | MHC.CM.PN ---
pt s [facility] will be here to pick pt up at 12:00
[2022-07-02 22:03] LABS: Clozapine (Clozaril) 137 mcg/L; Norclozapine 115 mcg/L (25-400)
== END 2022-06-30 14:22 | disposition home or self-care (01) | DRG 871 ==
LOC: HO.ED 17:32 → HO.EDOVER 19:31 → HO.S3 06-26 07:55
PROVIDERS: Internal Medicine; Admitting Provider Student in an Organized Health Care Education/Training Program; Emergency Provider Student in an Organized Health Care Education/Training Program; PCP Internal Medicine; Visit Provider Student in an Organized Health Care Education/Training Program
DX: A41.9 Sepsis, unspecified organism (principal); E43 Unspecified severe protein-calorie malnutrition; G92.8 Other toxic encephalopathy; J69.0 Pneumonitis due to inhalation of food and vomit; N39.0 Urinary tract infection, site not specified; R64 Cachexia; Z68.1 Body mass index [BMI] 19.9 or less, adult; R45.851 Suicidal ideations; E03.9 Hypothyroidism, unspecified; K21.9 Gastro-esophageal reflux disease without esophagitis; K22.4 Dyskinesia of esophagus; K22.5 Diverticulum of esophagus, acquired; R13.12 Dysphagia, oropharyngeal phase; J06.9 Acute upper respiratory infection, unspecified; K59.09 Other constipation; J43.1 Panlobular emphysema; B97.10 Unspecified enterovirus as the cause of diseases classified elsewhere; B96.20 Unspecified Escherichia coli [E. coli] as the cause of diseases classified elsewhere; L89.322 Pressure ulcer of left buttock, stage 2; F20.9 Schizophrenia, unspecified; Z20.822 Contact with and (suspected) exposure to COVID-19; Z88.1 Allergy status to other antibiotic agents; Z88.2 Allergy status to sulfonamides; Z79.890 Hormone replacement therapy; Z79.899 Other long term (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
CPT/HCPCS: 36415; 70450; 71045; 71250; 74230; 80048; 80053; 80159; 81001; 82607; 82746; 82803; 83605; 83880; 84145; 84443; 84484; 85025; 85027; 85610; 87040; 87086; 87088; 87186; 87633; 87640; 87641; 92526; 92610; 92611; 93005; 97116; 97161; 99285; J0696; J1643; J2543; S9485

== ENCOUNTER 2022-09-03 11:30 | Outpatient (AMB) | payer MEDICARE, MEDICAID, SELFPAY ==
[2022-09-03 11:32] VITALS: BP 100/62; PULSE 91; O2SAT 93; BMI 18.1
--- NOTE | 2022-09-03 11:32 | MHC.PC.OV ---
Vital Signs 09/03/22 11:32 Height 5 ft 3 in Weight 102 lb BMI 18.1 BP 100/62 Blood Pressure Location Lt brachial Position Sitting Pulse 91 Pulse Source Pulse Oximeter Temp Source Skin Pulse Oximetry (%) 93 Oxygen Delivery Method Room Air Intake Visit Reasons: 2M Follow up-Rescheduled from 08/14 Poultry Farmer Required: No Allergies clindamycin Allergy (Unknown, Verified 09/03/22 11:35) Unknown Sulfa (Sulfonamide Antibiotics) [SULFA(SULFONAMIDE ANTIBIOTICS)] Allergy (Unknown, Verified 09/03/22 11:35) UNKNOWN sulfamethoxazole [From Bactrim] Allergy (Unknown, Verified 09/03/22 11:35) Unknown trimethoprim [From Bactrim] Allergy (Unknown, Verified 09/03/22 11:35) Unknown Tobacco use date assessed: 09/03/22 Fall risk assessment: No Falls in past year Last assessed Fall Risk: 09/03/22 Dental Screening Dental Screen Date: 09/03/22 Did you have a dental visit in the last 12 months?: Yes Did you have a dental problem in the last 6 months where you did not have access to dental care?: Yes HPI HPI Comments History of Present Illness Details 67-year-old underweight male with schizophrenia, COPD oropharyngeal dysphagia hypothyroid, chronic anemia GERD. Patient Dr. LANDIN last seen in May. Patient presents today with research group director for follow-up visit. Review of the notes patient was admitted in the hospital in June for aspiration pneumonia and UTI and was treated with IV antibiotics and discharged home. Patient was also [facility] he was previously followed for stage III pressure ulcer on his last buttocks since healed, patient advised to follow up p.r.n. for this. Denies fevers,chills, sob. transit survey worker reports that patient has been much more nervous and worried about things. Patient psychiatrist made aware of this and may be changing his medication in the near future. Also made aware patient has difficulty hearing at times and that he has alot of ear wax. [facility] Medical History (Updated 09/03/22 @ 12:00 by CHARLEE Tejada) Adult failure to thrive Anemia Anxiety Aspiration pneumonia Asthma COPD (chronic obstructive pulmonary disease) COVID-19 Depression Dysphagia Epiphrenic diverticulum Esophageal diverticulum Failure to thrive in adult GERD (gastroesophageal reflux disease) Hypothyroid Impaired glucose tolerance Mentally challenged Metabolic encephalopathy MVP (mitral valve prolapse) Oropharyngeal dysphagia Paraparesis Pneumonia Schizophrenia Tracheomalacia Tubular adenoma of colon Surgical History (Updated 06/29/22 @ 09:10 by Keiry Hickey PA-C) History of bronchoscopy History of colonoscopy History of esophagogastroduodenoscopy (EGD) S/P tracheoplasty Family History Family/Other Unknown family medical history Father Hypertension Mother Unknown family medical history Brother No problems noted. Sister No problems noted. Social History Household Members: Other Household Members Other:: Resides in [facility] Housing: Other Housing Other:: long term Are you a primary acute care occupational therapist to a significant other at home: No Unable to assess alcohol history related to: Unable to respond and Unknown Alcohol intake: never Patient Tobacco Use Status: Never used Tobacco e-Cigarette/Vaping Use: Never Used Second Hand Smoke Exposure: No Advance Directives Date on File: 11/28/20 service: No Current occupational status: disabled Cognitive needs: Yes Hearing needs: No Vision needs: No Questionnaire PHQ-9 Over the last 2 weeks, how often have you been bothered by any of the following problems? 1. Little interest or pleasure in doing things: several days 2. Feeling down, depressed, or hopeless: nearly every day 3. Trouble falling or staying asleep, or sleeping too much: nearly every day (TROUBLE SLEEPING) 4. Feeling tired or having little energy: not at all 5. Poor appetite or overeating: several days 6. Feeling bad about yourself - or that you are a failure or have let yourself or your family down: not at all 7. Trouble concentrating on things, such as reading the newspaper or watching television: not at all 8. Moving or speaking so slowly that other people could have noticed. Or the opposite - being so fidgety or restless that you have been moving around a lot more than usual: not at all 9. Thoughts that you would be better off or of hurting yourself in some way: not at all Total score: 8 Depression Screening Interpretation: Positive Source: Developed by Drs. Anthony Lyle, Adriana B.W. Gunner Ji and colleagues, with an educational jia from [employer]. Thrive Questionnaire Date Thrive assessed: 03/11/22 AUDIT C Alcohol Use Questionnaire (AUDIT-C) 1. How often do you have a drink containing alcohol?: Never 3. How often do you have six or more drinks on one occasion?: Never Total Score: 0 Score Reviewed/Action Taken: Yes OSORIO-7 AMB Questionnaire OSORIO-7 Date OSORIO - 7 assessed: 09/03/22 Feeling nervous, anxious, or on edge: 2 = More than half the days Not being able to stop or control worryin = More than half the days Worrying too much about different things: 2 = More than half the days Trouble relaxin = Not at all Being so restless that it is hard to sit still: 1 = Several days Becoming easily annoyed or irritable: 1 = Several days Feeling afraid as if something awful might happen: 1 = Several days Total OSORIO-7 score (0-4 normal; 5-9 mild; 10-14 moderate; 15-21 severe): 9 Source: Developed by Drs. Anthony Lyle, Gunner Perez and colleagues, with an educational jia from [employer]. Review of Systems Const Denies chills, Denies fatigue, Denies fever(s) and Denies poor appetite Eyes Denies no additional complaints ENT Reports Normal hearing present, Reports ear discharge and Denies otalgia Card Denies chest pain, Denies syncope, Denies rapid heart rate and Denies dyspnea Resp Denies cough and Denies dyspnea GI Denies change in stool character, Denies constipation, Denies diarrhea, Denies nausea and Denies vomiting Denies dysuria, Denies urinary frequency and Denies urinary urgency Neuro Reports Normal hearing present, Denies confusion and Denies syncope Psych Denies confusion Endo Denies fatigue Physical exam (Primary Care) Vital Signs: Last Vital Signs Pulse 91 09/03/22 11:32 BP 100/62 09/03/22 11:32 Pulse Ox 93 09/03/22 11:32 Oxygen Delivery Method Room Air 09/03/22 11:32 BMI result Body Mass Index 18.1 Tobacco/Smoking Status: Tobacco use Status Tobacco use date assessed 09/03/22 09/03/22 11:43 Patient Tobacco Use Status Never used Tobacco 09/03/22 11:43 e-Cigarette/Vaping Use Never Used 09/03/22 11:43 PHQ-9: PHQ-9 Score PHQ-9: Total score 8 09/03/22 11:47 Depression Screening Interpretation: Positive Thrive Assessment: Date of Thrive Assessment Date Thrive assessed 03/11/22 09/03/22 11:43 Const General: No confusion Orientation/consciousness: No confusion HENMT Head: Yes normocephalic and Yes atraumatic Ears: unable to visualize TM bilaterally (Cerumen impaction ) Eyes Conjunctivae: conjunctivae normal Chest Chest palpation & inspection: normal inspection of the chest Resp Effort & Inspection: normal respiratory effort Auscultation: clear to auscultation bilaterally, no crackles, no rhonchi and no wheezes Cardio Rate: regular rate Rhythm: regular rhythm Heart sounds: S1 normal heart sound present and S2 normal heart sound present GI Inspection: Yes normal to inspection Neuro General: No confusion Cranial nerves: Yes Normal hearing present Extrem General: No edema Assessment and Plan Assessment & Plan (1) Bilateral impacted cerumen: Code(s): H61.23 - Impacted cerumen, bilateral Plan: Depression drops sent to patient's pharmacy. Instructed to use drops in bilateral ears 4 days prior to coming in for ear flushing. (2) Pressure ulcer: Comment: May 2022 left gluteal area with 1 cm ulcer right gluteal area with some redness and skin deformity Code(s): L89.90 - Pressure ulcer of unspecified site, unspecified stage Plan: Resolved patient advised to with Wound Center as needed. (3) GERD (gastroesophageal reflux disease): Code(s): K21.9 - Gastro-esophageal reflux disease without esophagitis Qualifiers: Esophagitis presence: without esophagitis Qualified Code(s): K21.9 - Gastro-esophageal reflux disease without esophagitis Plan: Continue on omeprazole 20 mg b.i.d.. Avoid the foods that cause that, usually spicy foods, tomato products, juices, coffee, soda and foods that you're sensitive to.? After eating do not lie down, allow 3-4 hours before lying down. And keep the head of the bed above 30 degrees to avoid the acid from going up. (4) Hypothyroid: Code(s): E03.9 - Hypothyroidism, unspecified Qualifiers: Hypothyroidism type: acquired Qualified Code(s): E03.9 - Hypothyroidism, unspecified Plan: Continue on levothyroxine 25 mcg daily. TSH 2.55 in June 2022 (5) Anemia: Code(s): D64.9 - Anemia, unspecified Qualifiers: Anemia type: unspecified type Qualified Code(s): D64.9 - Anemia, unspecified Plan: Follow up CBC ordered. Plan Follow up in 3 months with pcp. Orders: Orders Comprehensive [place]. Panel Fast Today Z13.1 - Encounter for screening for diabetes mellitus Lipid Panel Today Z13.220 - Encounter for screening for lipoid disorders Complete Blood Count Auto Diff Today Z13.0 - Encounter for screening for diseases of the blood and blood-forming organs and certain disorders involving the immune mechanism Medications: New carbamide peroxide 6.5% (Debrox) 5 drps otic (ears) DAILY 4 days 15 mL 0RF H61.23 - Impacted cerumen, bilateral Coding Level of Care Code Est Pt Level 4 (47932) Diagnoses Bilateral impacted cerumen H61.23 Pressure ulcer L89.90 GERD (gastroesophageal reflux disease) K21.9 Esophagitis presence: without esophagitis Hypothyroid E03.9 Hypothyroidism type: acquired Anemia D64.9 Anemia type: unspecified type
== END 2022-09-03 12:11 | disposition home or self-care (01) ==
PROVIDERS: PCP Internal Medicine; Visit Provider Nurse Practitioner Family
DX: H61.23 Impacted cerumen, bilateral (principal); L89.90 Pressure ulcer of unspecified site, unspecified stage; K21.9 Gastro-esophageal reflux disease without esophagitis; E03.9 Hypothyroidism, unspecified; D64.9 Anemia, unspecified
CPT/HCPCS: 99214

== ENCOUNTER 2022-09-09 09:09 | Outpatient (REF) | payer MEDICARE, MEDICAID, SELFPAY ==
[2022-09-09 09:29] LABS: MANUAL DIFF FLAG NO
[2022-09-09 09:44] LABS: Basophils Percent Auto 0.3 % (0-2); Eosinophils Absolute Auto 0.1 X10*3/uL (0.0-0.4); Eosinophils Percent Auto 1.2 % (0-4); Imm Gran Abs Auto 0.09 X10*3/uL (0.00-0.03); Imm Gran Pct Auto 0.9 % (0.0-0.4); Lymphocytes Absolute Auto 1.4 X10*3/uL (1.2-4.9); Lymphocytes Percent Auto 13.6 % (20-40); Mean Corpuscular HGB Conc 32.4 g/dl (31.0-36.0); Mean Corpuscular Hemoglobin 29.9 pg (27.0-33.0); Mean Corpuscular Volume 92.4 fL (80.0-98.0); Mean Platelet Volume 9.8 fL (9.4-12.4); Monocytes Absolute Auto 0.6 X10*3/uL (0.1-1.2); Monocytes Percent Auto 5.7 % (2-11); Neutrophils Absolute Auto 8.2 x10*3/uL (2.0-8.3); Neutrophils Percent Auto 78.3 % (45-73); Platelet Count 369 X10*3/uL (160-400); Red Blood Count 3.68 X10*6/uL (4.60-5.80); Red Cell Distribution Width 13.9 % (11.0-16.0); White Blood Count 10.4 X10*3/uL (4.8-10.8)
[2022-09-09 10:19] LABS: Alanine Aminotransferase 11 U/L (0-40); Albumin Level 3.7 g/dL (3.5-5.0); Alkaline Phosphatase 65 U/L (39-117); Anion Gap 11 (12-20); Aspartate Amino Transferase 13 U/L (5-37); Bilirubin Total 0.2 mg/dL (0.0-1.0); Blood Urea Nitrogen 17 mg/dL (9-16); Calcium 10.6 mg/dL (8.4-10.2); Carbon Dioxide 30 mmol/L (22-29); Chloride 106 mmol/L (96-108); Cholesterol 148 mg/dL; Estimated Glomerular Filt Rate > 60; Glucose Fasting 102 mg/dL (60-99); HDL Cholesterol 50 mg/dL; LDL Cholesterol Calculated 84 mg/dl; Potassium 4.1 mmol/L (3.3-5.1); Sodium 143 mmol/L (135-145); Total Protein 7.3 g/dL (6.5-8.0); Triglycerides 70 mg/dL
== END 2022-09-09 09:10 | disposition home or self-care (01) ==
LOC: HO.LAB 09:09
PROVIDERS: Nurse Practitioner Family; PCP Internal Medicine; Visit Provider Internal Medicine
DX: Z13.220 Encounter for screening for lipoid disorders (principal); Z13.1 Encounter for screening for diabetes mellitus; Z13.0 Encounter for screening for diseases of the blood and blood-forming organs and certain disorders involving the immune mechanism; Z20.2 Contact with and (suspected) exposure to infections with a predominantly sexual mode of transmission
CPT/HCPCS: 36415; 80053; 80061; 85025

== ENCOUNTER 2022-10-09 17:04 | Outpatient (REF) | payer MEDICARE, MEDICAID, SELFPAY ==
[2022-10-09 17:21] LABS: MANUAL DIFF FLAG NO
[2022-10-09 18:12] LABS: Basophils Percent Auto 0.7 % (0-2); Eosinophils Absolute Auto 0.1 X10*3/uL (0.0-0.4); Eosinophils Percent Auto 1.6 % (0-4); Hematocrit 32.5 % (42.0-52.0); Hemoglobin 10.7 g/dl (14.0-18.0); Imm Gran Abs Auto 0.02 X10*3/uL (0.00-0.03); Imm Gran Pct Auto 0.4 % (0.0-0.4); Lymphocytes Absolute Auto 1.5 X10*3/uL (1.2-4.9); Lymphocytes Percent Auto 26.4 % (20-40); Mean Corpuscular HGB Conc 32.9 g/dl (31.0-36.0); Mean Corpuscular Hemoglobin 30.7 pg (27.0-33.0); Mean Corpuscular Volume 93.1 fL (80.0-98.0); Mean Platelet Volume 10.5 fL (9.4-12.4); Monocytes Absolute Auto 0.5 X10*3/uL (0.1-1.2); Monocytes Percent Auto 8.8 % (2-11); Neut%MD 62.1 %; Neutrophils Absolute Auto 3.5 x10*3/uL (2.0-8.3); Neutrophils Percent Auto 62.1 % (45-73); Platelet Count 300 X10*3/uL (160-400); Red Blood Count 3.49 X10*6/uL (4.60-5.80); Red Cell Distribution Width 14.9 % (11.0-16.0); WBCANC 5.7 X10*3/uL; White Blood Count 5.7 X10*3/uL (4.8-10.8)
== END 2022-10-09 17:05 | disposition home or self-care (01) ==
LOC: HO.LABR 17:04
PROVIDERS: PCP Internal Medicine; Visit Provider Clinical Nurse Specialist Psychiatric/Mental Health, Adult
DX: Z79.899 Other long term (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 (principal)
CPT/HCPCS: 36415; 85025

== ENCOUNTER 2022-10-29 15:07 | Outpatient (REF) | payer MEDICARE, MEDICAID, SELFPAY ==
[2022-10-29 15:40] LABS: MANUAL DIFF FLAG NO
[2022-10-29 16:06] LABS: Basophils Percent Auto 0.6 % (0-2); Eosinophils Absolute Auto 0.1 X10*3/uL (0.0-0.4); Eosinophils Percent Auto 1.7 % (0-4); Hematocrit 32.8 % (42.0-52.0); Hemoglobin 10.8 g/dl (14.0-18.0); Imm Gran Abs Auto 0.02 X10*3/uL (0.00-0.03); Imm Gran Pct Auto 0.3 % (0.0-0.4); Immature Retic Fraction 4.2 % (2.3-13.4); Lymphocytes Absolute Auto 1.3 X10*3/uL (1.2-4.9); Lymphocytes Percent Auto 19.1 % (20-40); Mean Corpuscular HGB Conc 32.9 g/dl (31.0-36.0); Mean Corpuscular Hemoglobin 30.3 pg (27.0-33.0); Mean Corpuscular Volume 91.9 fL (80.0-98.0); Mean Platelet Volume 10.3 fL (9.4-12.4); Monocytes Absolute Auto 0.4 X10*3/uL (0.1-1.2); Monocytes Percent Auto 6.7 % (2-11); Neutrophils Absolute Auto 4.7 x10*3/uL (2.0-8.3); Neutrophils Percent Auto 71.6 % (45-73); Platelet Count 284 X10*3/uL (160-400); Red Blood Count 3.57 X10*6/uL (4.60-5.80); Red Cell Distribution Width 14.1 % (11.0-16.0); Retic HGB Equivalent 36.2 pg (30.0-35.0); Reticulocyte Percent 0.8 % (0.5-1.8); Reticulocytes Absolute 0.029 X10*6/uL (0.026-0.095); White Blood Count 6.6 X10*3/uL (4.8-10.8)
[2022-10-29 16:26] LABS: Appearance Urine Clear; Color Urine Yellow; Glucose Urine UA Negative (Negative); Leukocyte Esterase Urine Moderate (2+) (Negative); Nitrite Urine Negative (Negative); Specific Gravity - Urine 1.015 (1.005-1.025); UMIC TRIGGER UACC YES; Urine Blood Negative (Negative); Urine Ketones Negative (Negative); Urine Protein Negative (Neg-Trace)
[2022-10-29 16:51] LABS: Alanine Aminotransferase 18 U/L (0-40); Albumin Level 3.8 g/dL (3.5-5.0); Alkaline Phosphatase 63 U/L (39-117); Anion Gap 12 (12-20); Aspartate Amino Transferase 21 U/L (5-37); Bilirubin Total 0.2 mg/dL (0.0-1.0); Blood Urea Nitrogen 20 mg/dL (9-16); Calcium 9.4 mg/dL (8.4-10.2); Carbon Dioxide 26 mmol/L (22-29); Chloride 105 mmol/L (96-108); Estimated Glomerular Filt Rate > 60; Glucose Random 64 mg/dL (60-115); Iron 21 mcg/dL (45-160); Magnesium 1.8 mg/dL (1.6-2.6); Percent Iron Saturation 9 % (15-50); Potassium 3.8 mmol/L (3.3-5.1); Sodium 139 mmol/L (135-145); Total Iron Binding Capacity 235 mcg/dL (228-428); Total Protein 6.8 g/dL (6.5-8.0); Unsaturated Iron Binding 214 ug/dL
[2022-10-29 17:05] LABS: PSA,Total (Free>4and<10) 4.27 ng/mL (0.00-4.00)
[2022-10-29 17:06] LABS: Ferritin 2 ng/mL (20-250); TSH reflex Free T4 3.11 uIU/mL (0.32-4.0)
[2022-10-29 17:07] LABS: Bacteria Urine 1+ (None Seen); Hyaline Casts Urine 0-2 /LPF (0-2); RBC Urine 0-2 /HPF (0-2); Squamous Epithelial Cell Urine 0-2 /HPF (0-2); UACC Culture Trigger YES
[2022-10-29 17:26] LABS: Folate 8.9 ng/mL (> or = 4.0); Vitamin B12 1057 pg/mL (200-900)
[2022-11-01 11:13] LABS: Free Prostate Spec Ag 0.4 ng/mL; Percent Free Prostate Spec Ag 10 % (calc) (>25); Prostate Specific Ag Total 4.2 ng/mL (< OR = 4.0)
== END 2022-10-29 15:08 | disposition home or self-care (01) ==
LOC: HO.LAB 15:07
PROVIDERS: PCP Internal Medicine; Visit Provider Internal Medicine
DX: Z12.5 Encounter for screening for malignant neoplasm of prostate (principal); K21.9 Gastro-esophageal reflux disease without esophagitis; D64.9 Anemia, unspecified; R11.0 Nausea; E03.9 Hypothyroidism, unspecified; R82.90 Unspecified abnormal findings in urine
CPT/HCPCS: 36415; 80053; 81001; 81003; 82607; 82728; 82746; 83540; 83735; 84153; 84154; 84443; 85025; 85045; 87086

== ENCOUNTER 2022-11-17 09:47 | Outpatient (AMB) | payer MEDICARE, MEDICAID, SELFPAY ==
--- NOTE | 2022-11-17 09:54 | MHC.OFFVIS ---
Intake Vital Signs 11/17/22 09:55 Height 5 ft 6 in Weight 108 lb 7.479 oz BMI 17.5 BP 111/66 Blood Pressure Location Rt brachial Position Sitting Pulse 105 H Intake Visit Reasons: 6 month follow up Intake Note: Patient presents to in office visit today in 6 months follow up of dysphagia. CC: Patient in ground food diet. [facility] direct care personal with PT here today states that even though Pt has been eating his meals grounded he still seems to have a hard time swallowing. She reports Pt chocking and coughing when eating and drinking. He is also in a nectar liquid diet and he also chokes on this. Patient states his throat is broken Patient also c/o GERD. Denies other GI symptoms today. Allergies clindamycin Allergy (Unknown, Verified 11/17/22 10:02) Unknown Sulfa (Sulfonamide Antibiotics) [SULFA(SULFONAMIDE ANTIBIOTICS)] Allergy (Unknown, Verified 11/17/22 10:02) UNKNOWN sulfamethoxazole [From Bactrim] Allergy (Unknown, Verified 11/17/22 10:02) Unknown trimethoprim [From Bactrim] Allergy (Unknown, Verified 11/17/22 10:02) Unknown HPI 6 month follow up HPI Details LAST VISIT 05/19/2022 SEEN BY LUISA CONTRERAS (1) GERD (gastroesophageal reflux disease): Code(s): K21.9 - Gastro-esophageal reflux disease without esophagitis Qualifiers: Esophagitis presence: without esophagitis Qualified Code(s): K21.9 - Gastro-esophageal reflux disease without esophagitis Plan: He is here today with a staff member who has limited knowledge about his condition but who wants to be helpful in terms of managing his constipation. The patient is not a good self lion trainer because of his comorbid psychiatric limitations. Staff will fax me a stooling log. BUT he has been out of his medications for about couple of weeks. His PCP is Dr. Reeves, unsure if no changes why he is not taking over this. Had a period of diarrhea per staff, ? stomach bug. He seems to have recovered from this but I wonder if this is medication related and how effective his current therapy is. Hopefully they will be able to fax me over his stooling log so I can see. Continue LIness 290 and senna daily. Has Miralax, flax seed prn. He also continues on omeprazole 20 mg twice a day and is eating well so this must be controlling his GERD as far as we can tell. INPATIENT CONSULTATION 06/26/2022 DR. AMES 1) Aspiration into airway: Status: Acute (2) Oropharyngeal dysphagia: Status: Acute Plan 1/Aspiration pneumonai with dilated esophagus with large tic, hard to say if this is neuromuscular or mechanical in origin. Could b achalasia and the diverticulum could be related to chronic pressure change Plan: 1/ BA swallow---if neg then MBS 2/ thoroacic surg cosult 4/ could consider egd and botox for possible achalasia, might need G tube if ongoing aspiration concerns TODAY'S VISIT 67-year-old male with past medical history schizophrenia, constipation, GERD, dysphagia, anemia, hypothyroidism is here today for follow-up. This patient is new to me, previously seen by Luisa Contreras. Patient is accompanied by staff who assists patient at the care home residence. Patient has been seen for constipation with last visit in the office in April. In June patient was admitted for aspiration pneumonia seen speech therapy and recommendation was made to have patient follow-up with speech therapy on a daily basis. Since discharge patient has not seen physical therapy. Has not followed up with our office post hospitalization untill today. Patient and staff both report frequent choking when drinking or eating. Patient currently is drinking nectar thick liquids and all his meals are pureed. Since hospitalization patient had not had any aspiration. Denies any shortness of breath, fever or chills. Patient has not lost any weight. Staff worries about patient choking. Supervision 1-1 with all the meals. Patient is moving his bowels better, occasionally he will have a bowel movement every other day otherwise he moves his bowels daily. Patient denies any melena, hematochezia, unintentional weight loss or ribbon like stools. Patient's weight has not changed in the last year. 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 Paraparesis Metabolic encephalopathy COVID-19 Adult failure to thrive MVP (mitral valve prolapse) Mentally challenged Anxiety GERD (gastroesophageal reflux disease) Impaired glucose tolerance Tracheomalacia Schizophrenia Tubular adenoma of colon COPD (chronic obstructive pulmonary disease) Pneumonia Anemia Hypothyroid Depression Asthma Oropharyngeal dysphagia Surgical History History of bronchoscopy History of colonoscopy S/P tracheoplasty History of esophagogastroduodenoscopy (EGD) Family History Family/Other Unknown family medical history Father Hypertension Mother Unknown family medical history Brother No problems noted. Sister No problems noted. Social History Household Members: Other Household Members Other:: Resides in [facility] Housing: Other Housing Other:: care home Are you a primary health care / medical job titles to a significant other at home: No Unable to assess alcohol history related to: Unable to respond and Unknown Alcohol intake: never Patient Tobacco Use Status: Never used Tobacco e-Cigarette/Vaping Use: Never Used Second Hand Smoke Exposure: No Advance Directives Date on File: 11/28/20 service: No Current occupational status: disabled Cognitive needs: Yes Hearing needs: No Vision needs: No Review of Systems Const Denies weight gain and Denies weight loss ENT Reports no additional complaints, Reports dysphagia, Denies odynophagia and Reports other (Occasional choking episodes) Card Reports no additional complaints Resp Reports no additional complaints GI Denies abdominal pain, Denies belching, Denies melena, Denies bloating, Denies change in bowel habits, Reports dysphagia, Denies excessive flatus, Denies dyspepsia, Denies heartburn, Denies diarrhea, Denies loose stools, Denies nausea, Denies odynophagia and Denies vomiting Reports no additional complaints Musc Reports no additional complaints Neuro Reports no additional complaints Psych Reports no additional complaints Endo Reports no additional complaints Physical Exam Vital Signs: Last Vital Signs Pulse 105 H 11/17/22 09:55 BP 111/66 11/17/22 09:55 BMI result Body Mass Index 17.5 Const General: no acute distress Nutritional Appearance: underweight Orientation/consciousness: oriented to person and oriented to place Limitations: behavioral limitations HEENT Head: Yes normal to inspection, Yes normocephalic and Yes atraumatic Face and sinus: Yes normal facial exam Mouth: Normal oral and palatal mucosa present Throat: Yes posterior oropharynx normal, Yes tonsils normal and Yes uvula midline Eyes General: appearance normal, both eyes and all related structures Neck Neck: Yes normal visual inspection, Yes full ROM and Yes trachea midline Thyroid: Thyroid normal Resp Effort & Inspection: normal respiratory effort, able to speak in complete sentences, no tracheal deviation and symmetric chest movement Auscultation: clear to auscultation bilaterally Cardio Rate: regular rate Heart sounds: S1 normal heart sound present and S2 normal heart sound present GI Inspection: Yes normal to inspection and No distended Palpation (GI): Soft to palpation, not firm, nontender and No hepatosplenomegaly present Auscultation: normal bowel sounds General: Yes no CVA tenderness Back/Spine/Pelvis Back: no CVA tenderness Skin General skin exam: elasticity normal, turgor normal and dry skin Neuro General: oriented to person and oriented to place Psych Appearance: grossly normal Results Reviewed Results Reviewed: MODIFIED BARIUM SWALLOW 06/26/2022 IMPRESSION: Duane laryngeal aspiration with thin barium. There is normal propagation of bolus barium coated pudding and cookie coated barium without laryngeal penetration or aspiration. SPEECH THERAPY NOTES FROM MODIFIED BARIUM SWALLOW Speech Pathologist Impression: Risk of aspiration, oropharyngeal dysphagia Risk of Aspiration Due to: Medically Fragile Neurological Condition History of Pneumonia Poor PO Intake Reduced Cognition Dysphasia Diet Status: Continue [facility] rec Clinician Assessment: Pt demonstrated silent aspiration on Thin Liquids via spoon size bite condition. Contrast entered the airway and no cough reflex was elicited. Cough was cued, however extent of airway clearance was uncertain due to motion artifact. Use of [place]-Thick Liquids under a single-sip condition resulted in penetration above the vocal folds that was not removed with subsequent swallows. A cued cough was successful in removing under this condition. Consecutive sips of Thin Liquids resulted in penetration above the vocal folds that was not spontaneously cleared and resulted in trace silent aspiration on subsequent swallows. Puree Solids and Ground Solids resulted in mild oral residue and moderate pharyngeal residue. Use of Ground Solids were seen to clear residue from the vallecular space more readily than in liquid condition. Based on these results I would recommend a conservative return to PO with Puree Solids and [place]-Thick Liquids. Pt will need assistance to ensure optimal positioning. He will demand total supervision to monitor for overt s/s of aspiration. He will require frequent cues from caregivers and staff to ensure use of single sip swallowing strategies. It is additionally recommended that he work with an COLD ROLLING COORDINATOR to address these strategies and assess potential for further advancement of solids. Liquid Consistency and Strategies for Safe Swallow: Liquid Intake Recommendation: [place] Thick Liquid Intake Strategies: Small SipsNo Straws Double Swallow Solid Food Consistency: Dietary Recommendations: Pureed (NDD1) Additional Modifications to Solid Foods: 1:1 Feeding, liquids by TSP, slower rate of ingestion: assure patient has swallowed before presenting more food or liquid, blend gravies/sauces into puree for one consistency. Do not attempt if patient is lethargic, not engaged in meal. Patient may benefit from smaller, more frequent meals given decreased appetite. Oral Medication Intake: Crushed with Puree Please contact the pharmacy regarding appropriate crushable or liquid drug formulations that are available whenever modified delivery is recommended. Compensatory Strategies and Precautions to be Taken for Safe Swallow: Sitting Upright (90 deg) Double Swallow No Straw Small Bites and Sips Rate of Ingestion Change Avoid Specific Foods Supervision While Eating and Drinking for Safe Swallow: Total Supervision (1:1) Foods to Avoid: Mixed consistencies (i.e., soups, cereal with milk, fruit cups). Swallowing Recommended Treatments: Compens. Strategy Educat. Recommendation for Speech: Inpatient Speech Therapy Speech Therapy through Rehab Facility Assessment & Plan Assessment & Plan (1) Underweight: Code(s): R63.6 - Underweight (2) Constipation: Code(s): K59.00 - Constipation, unspecified Qualifiers: Constipation type: chronic idiopathic constipation Qualified Code(s): K59.04 - Chronic idiopathic constipation (3) GERD (gastroesophageal reflux disease): Code(s): K21.9 - Gastro-esophageal reflux disease without esophagitis Qualifiers: Esophagitis presence: without esophagitis Qualified Code(s): K21.9 - Gastro-esophageal reflux disease without esophagitis Plan Patient continues to have dysphagia. At this point weight is stable, however patient is at risk for aspiration. I will send him for MBS again to re-evaluate if anything changed since last seen. Patient has not followed up with speech therapy since hospital discharge. If patient continues to have episodes of choking he is at risk for aspiration. Continue one-to-one during meals. Continue nectar thick liquids and puree food. Eat small spoonfulls. Avoid eating fast. Patient can continue his current meds for constipation and to control his GERD. Depending on results from speech therapy we can either arrange for upper endoscopy or patient might need it to be NPO and have G-tube placed. Spoke to Dr. Ames and case discussed. Appointment for patient made to see speech therapy tomorrow at 13:00. Both patient, staff and director of the facility are aware of plan. Patient's legal guardian is his sister Itzel. Her phone number is [phone]. I have not called her to discuss anything yet. Awaiting for results from speech therapy. Patient will be seen in our office depending on results from tomorrow's MBS. Everyone was given the opportunity to ask questions and all questions answered. Thank you for allowing me to participate in his care Orders: Orders FL barium swallow modified Today R13.10 - Dysphagia, unspecified Coding Level of Care Code Est Pt Level 5 (48550) Diagnoses Underweight R63.6 Chronic idiopathic constipation K59.04 Constipation type: chronic idiopathic constipation Gastroesophageal reflux disease without esophagitis K21.9 Esophagitis presence: without esophagitis Time Spent (min) 45 Comment 30 min spent with pt and add 15 min spent reviewing his records and coordinating care
[2022-11-17 09:55] VITALS: BP 111/66; PULSE 105; BMI 17.5
== END 2022-11-17 11:22 | disposition home or self-care (01) ==
PROVIDERS: PCP Internal Medicine; Visit Provider Nurse Practitioner Family
DX: K21.9 Gastro-esophageal reflux disease without esophagitis (principal); R63.6 Underweight; K59.04 Chronic idiopathic constipation; R13.10 Dysphagia, unspecified
CPT/HCPCS: 99215

== ENCOUNTER → 2022-11-17 09:47 | Outpatient (BNVA) | payer MEDICARE, MEDICAID, SELFPAY | PROVIDERS: PCP Internal Medicine; Visit Provider Nurse Practitioner Family | DX: K59.04 Chronic idiopathic constipation (principal); K21.9 Gastro-esophageal reflux disease without esophagitis; R63.6 Underweight | CPT/HCPCS: 99212 ==

== ENCOUNTER 2022-11-18 12:36 | Outpatient (REF) | payer MEDICARE, MEDICAID, SELFPAY ==
--- NOTE | ~2022-11-18 | FL_ITS ---
PROCEDURE: XR BARIUM SWALLOW CLINICAL INFORMATION: Dysphagia. COMPARISON: None available. TECHNIQUE: Routine modified barium swallow was performed under lateral fluoroscopy in presence of speech therapist. FINDINGS: On oral administration of thin barium, nectar barium there is danielle laryngeal aspiration. On oral administration of honey consistency barium there is laryngeal penetration with spontaneous clearance. With the rest of the semiliquids and solid foods there is normal propagation of bolus from the oral cavity through the pharynx and esophagus. FLUOROSCOPY TIME: 3 minutes and 26 seconds DOSE AREA PRODUCT: 2076 uGy-m2 (microgray-meter squared) FL/FL barium swallow modified IMPRESSION: Danielle laryngeal aspiration with thin barium and nectar consistency barium.
--- NOTE | 2022-11-19 15:47 | MHC.SL.IMP ---
Date of Plan of Treatment: 11/18/22 Onset of Symptoms/Illness: 06/26/22 Date Treatment Started: 11/18/22 Admitting Diagnosis: Dysphagia Primary Speech & Language Diagnosis: R13.12 Oropharyngeal Phase Dysphagia Reason for Today's Visit: 06569 Modified Barium Swallow Study Pre-evaluation Dietary Consistencies: Grnd/Mech Altered (NDD2) Pre-evaluation Liquid Consistency: [place] Thick Pre-evaluation Medication Administration: Crushed with Puree Medical History: Modified Barium Swallow Study Fluoroscopic Evaluation of Swallowing Function CPT Code 13204 Evaluation Year: 2022 Reason for Study: Hx dysphagia Referring Physician: Ele CASTRO Evaluating Clinician: Nasrin Sevilla MA, CCC-DIRECTOR GOVERNMENT Study Number: 1 Patient Name: Dagoberto Mayen Status: Outpatient Age: 67 Gender: Male Medical History 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 Paraparesis Metabolic encephalopathy COVID-19 Adult failure to thrive MVP (mitral valve prolapse) Mentally challenged Anxiety GERD (gastroesophageal reflux disease) Impaired glucose tolerance Tracheomalacia Schizophrenia Tubular adenoma of colon COPD (chronic obstructive pulmonary disease) Pneumonia Anemia Hypothyroid Depression Asthma Oropharyngeal dysphagia Surgical History (Reviewed 11/17/22 @ 10:09 by Cathleen Verde [facility] [place]) History of bronchoscopy History of colonoscopy S/P tracheoplasty History of esophagogastroduodenoscopy (EGD) Current (pre-evaluation) Intake/Diet: Route: PO Diet Grade: Mechanical Soft Liquid Consistencies: [place] Pre-Study Functional Oral Intake Scale (FOIS): 5- Total oral intake of multiple consistencies requiring special preparation Pain: None reported at time of study SUBJECTIVE: Pt is a 67 year old male with history significant for dysphagia, aspiration pneumonia, adult failure to thrive, esophageal diverticulum, paraparesis, metabolic encephalopathy, GERD, COPD, and asthma, among other diagnoses. Pt is followed by the Gastroenterology office. and was recently seen by Ele CASTRO on 11/17/22. At the appointment, pt was accompanied by a staff member from his [facility], who reported that, even though pt is on a ground diet, he still seems to have a hard time swallowing. She reported that pt coughs and chokes when eating and drinking and that he is also coughing on liquids, which are thickened to nectar consistency for him. Review of the medical electronic record revealed that pt has had an MBSS done previously in June 2022. Previous MBSS showed silent aspiration on thin liquids. At that point, pt was recommended a pureed diet with nectar thick liquids, and follow-up treatment sessions with an DIRECTOR GOVERNMENT for continued education in regards to MBSS results and recommended dietary textures and strategies. Pt is now referred for a repeat-MBSS by the G.I. specialist to re-assess for any changes. Reportedly, pt has not followed up with speech therapy since that exam. Today, pt again comes with a staff member by the name of Floresita from his [facility]. They endorse that pt chokes on ground food, ?to the point of becoming teary and turning red in the face.? Pt expressed, ?It all feels broken here,? whilst pointing to his throat. Oral Motor Exam Mouth Occlusion: Normal Tongue Size: Normal Tongue Frenum Length: Normal Tongue Excursion Description: Normal Tongue Range of Movement Description: Normal Tongue Speed of Movement Description: Reduced Tongue Movement Characteristics: Normal/Absent Food and Liquid Trials: Oral Impairment: Lip Closure: 1=Interlabial escape; no progression to anterior tip Oral Impairment: Tongue Control During Bolus Hold: Did not test Oral Impairment: Bolus Preparation/Mastication: Did not test Oral Impairment: Bolus Transport/Lingual Motion: 2=Slowed tongue motion Oral Impairment: Oral Residue: 2=Residue collection on oral structures Oral Impairment:Initiation of Pharyngeal Swallow: 3=Bolus head in pyriforms Pharyngeal Impairment: Soft Palate Elevation: 0=No bolus between soft palate (SP)/pharyngeal wall (PW) Pharyngeal Impairment: Laryngeal Elevation: 1=Partial thyroid cartilage/arytenoids to epiglottic petiole movement Pharyngeal Impairment: Anterior Hyoid Excursion: 1=Partial anterior movement Pharyngeal Impairment: Epiglottic Movement: 1=Partial inversion Pharyngeal Impairment: Laryngeal Vestibular Closure:: 2=None: No inversion Pharyngeal Impairment: Pharyngeal Stripping Wave: 0=Present: complete Pharyngeal Impairment: Pharyngeal Contraction: Did not test Pharyngeal Impairment: Pharyngoesophageal Segment Openin=Partial distention/partial duration: partial obstruction of flow Pharyngeal Impairment: Tongue Base (TB) Retraction: 2=Narrow column of contrast/air between TB and posterior PW Pharyngeal Impairment: Pharyngeal Residue: 2=Collection of residue within or on pharyngeal structures Pharyngeal Impairment: Esophageal Clearance Upright Position: Did not test Impressions and Recommendations Clinical Observations: OBJECTIVE: Time-out: performed at 13:30 Evaluation Start: 13:00; Stop: 13:15 Patient Positioning: Standing Viewing Planes: LATERAL ONLY Contrast: MBSImP? Standardized Protocol using commercially prepared, standardized Barium viscosities, including: Varibar? THIN LIQUID (40% w/v, <15 cps) , Varibar? NECTAR (40% w/v, <150-450 cps) , Varibar? THIN HONEY (40% w/v, <800-1800 cps) MBSImP ID: [id number] MBSImP Results: Lip closure for intraoral bolus containment resulted in interlabial escape, without progression to the anterior lip. Tongue control during bolus hold could not be assessed due to logistical reasons not related to physiologic impairment. Bolus preparation and mastication received the highest impairment score; solid not given due to patient safety concerns related to oral impairment. Bolus transport/lingual motion was with slowed tongue motion. Oral residue was a collection on oral structures. Initiation of the pharyngeal swallow occurred when the bolus head was in the pyriform sinuses. Soft palate elevation resulted in no bolus between the soft palate and the pharyngeal wall. Laryngeal elevation was decreased, with partial superior movement of the thyroid cartilage/partial approximation of the arytenoids to the epiglottic petiole. Anterior hyoid excursion demonstrated partial anterior movement. Epiglottic movement resulted in partial inversion. Laryngeal vestibular closure was absent, resulting in a wide column of air/contrast within the laryngeal vestibule at the height of the swallow. Pharyngeal stripping wave was present and complete. Pharyngeal contraction could not be determined due to logistical reasons not related to physiologic impairment. Pharyngoesophageal segment opening demonstrated partial distension/partial duration, with partial obstruction of bolus flow. Tongue base retraction allowed a narrow column of contrast or air between the retracted tongue base and the posterior pharyngeal wall. Pharyngeal residue was a collection of residue within or on pharyngeal structures. Esophageal clearance in the upright position could not be assessed due to logistical reasons not related to physiologic impairment. Oral Impairment Score: 10 (absence of score, component 2) Pharyngeal Impairment Score: 10 (absence of score, component 13) Esophageal Impairment Score: --- (absence of score, component 17) Laryngeal Penetration and Aspiration: Both Penetration and Aspiration were observed in today's study. Honey-thick Contrast entered the airway, remained above the vocal folds, and was ejected from the airway. Puree, Honey-thick Contrast entered the airway, remained above the vocal folds, and were not ejected from the airway. [place]-thick, Thin Contrast entered the airway, passed below the vocal folds, and no effort were made to eject. ASSESSMENT: Clinician Assessment: This exam was conducted by a multidisciplinary team consisting of a speech pathologist, radiologist, and radiology receptionist. Pt was standing for lateral view only and was able to feed himself. Pt trialed the following liquid and solid consistencies: -thin liquid barium by cup 5 mL & individual cup sip -nectar thick liquid barium by teaspoon -honey thick liquid barium by teaspoon & by cup sip -pureed solid (applesauce mixed with barium paste) -ground solid (mixture chicken salad with barium paste) *More advanced solids were not trialed for patient safety due to the impairments evident during this exam. There was interlabial escape on trials of liquids, with no progression to the anterior lip. Posterior lingual motion was slowed and delayed for the transport of bolus. When given a bite of ground chicken, pt with very minimal chewing, swallowed a majority of the bolus unchewed. There was mild lingual residue which was reduced with subsequent swallows. Pt swallowed 2-3 times per bite to clear the oral cavity. Of note, pt?s pharyngeal swallow trigger was significantly delayed, initiated as the bolus pooled and spilled from the pyriform sinuses. There was no nasopharyngeal reflux. Incomplete laryngeal elevation with partial anterior hyoid excursion and partial epiglottic inversion. Laryngeal vestibular closure was with partial and, at times, no closure. There was danielle aspiration during the swallow on trial of 5 mL thin liquid. Pt did not produce a spontaneous cough in response to the aspiration event. There was danielle aspiration on nectar thick liquid administered by teaspoon as well. There was penetration above the vocal folds on one occasion with trial of puree solid, also with trials of honey thick liquid by cup. There was mild residue coating the tongue base and in the valleculae and pyriform sinuses, which was reduced to a trace amount after a cued dry swallow. Liquid Intake Recommendation: [place] Thick Liquid Intake Strategies: Small Sips No Straws Double Swallow Dietary Recommendations: Pureed (NDD1) Medication Administration: Crushed with Puree Please contact the pharmacy regarding appropriate crushable or liquid drug formulations that are available whenever modified delivery is recommended. Compensatory Strategies Recommended: Sitting Upright (90 deg) Double Swallow No Straw Small Bites and Sips Rate of Ingestion Change Oral Check Avoid Specific Foods Supervision during eating and or drinking: Total Supervision (1:1) Recommended Treatments: Compens. Strategy Educat. Recommendation for Speech Therapy: Outpatient Speech Therapy Modified Barium Swallow Study - Outpatient Text Comment: PLAN: Intake Recommendations: Route: PO Diet Grade: Puree Liquid Consistencies: Honey Post-Study Functional Oral Intake Scale (FOIS): 5- Total oral intake of multiple consistencies requiring special preparation There has been a notable decline in pt?s swallow as compared to his previous MBSS from 06/26/22. Pt presents with severe oropharyngeal dysphagia and increased risk of aspiration. Today, pt demonstrated danielle aspiration on trials of thin liquid and nectar thick liquid. Contrast entered the airway and passed below the vocal folds with no spontaneous cough. There was trace penetration above the vocal folds with honey thick liquid and on pureed solid (applesauce) in one occurrence. Mild oral and pharyngeal residual, which pt was able to reduce with multiple dry swallows. Based on the results of this exam, recommend DOWNGRADE conservatively to PUREED solids (NDD1) and HONEY THICK liquids with STRICT ASPIRATION PRECAUTIONS and close monitoring: -Ensure total 1:1 supervision during all PO intake to monitor for any overt signs of aspiration and to provide cues/reminders as needed for safe eating strategies. -Ensure optimal positioning (upright at 90 degrees) during PO intake and for at least 30 minutes afterwards. -Avoid purees with crust, lumps, or any separation of liquid (i.e. consider homogenous consistencies consistent with the texture of pudding/yogurt without fruit). Thicken as needed. -Take small bites of food, one bite at a time -Small sips. -Liquids administered via teaspoon or controlled cup sips, one sip at a time -No straws -Follow bites/sips with a volitional cough or throat clear, followed by a dry swallow. -Ensure a rigorous daily oral care routine before first meal and after each subsequent meal -Pills crushed with puree (consult with pharmacy) Pt is additionally recommended dysphagia treatment with a speech language pathologist for further education RE: MBSS results, risks of aspiration, and recommended strategies. Recommend continued monitoring of pt?s dysphagia with a repeat-MBSS in 12-16 weeks. In addition to pt?s risk for aspiration, it is important to also consider the associated risk for dehydration with the consumption of conservatively thickened liquids- Recommend pt and his family to discuss the options for nutritional intake with his medical team (PO vs. supplemental PO w/ alternate means vs. NPO with alternate means of nutrition). Pt is recommended a referral with a registered business services director if he does not have one already, continued care with the air quality manager. Suggested Referrals: The patient might benefit from a referral to: -Nutrition Services Indication for Referral: Risk of malnutrition and especially dehydration w/ conservative recommendations -Gastroenterology Indication for Referral: To assess candidacy for alternate means to nutrition if indicated Therapy Recommendations: Therapy will be continued Rubber Chemist Goals: ? The patient will tolerate the least restrictive diet with a safe/efficient swallow to maintain adequate nutrition and hydration. ? The patient and/or family will participate in further education for swallowing goals. Short Term Goals: ? Education - The patient, caregiver will verbalize/demonstrate understanding of the results of this evaluation, the above recommendations, and the swallowing guidelines. Frequency/Duration: 1x weekly x 6 weeks Date Range for Service Requested: Timeline to reassess: 3 months Stacker Operator Clinician/Clinical Fellow: No Supervisory Statement: N/A Speech Language Pathologist: Nasrin Sevilla M.A., CCC-DIRECTOR GOVERNMENT
== END 2022-11-18 12:37 | disposition home or self-care (01) ==
LOC: HO.XRAY 12:36
PROVIDERS: PCP Internal Medicine; Visit Provider Nurse Practitioner Family
DX: R13.10 Dysphagia, unspecified (principal)
CPT/HCPCS: 74230; 92611

== ENCOUNTER → 2022-11-18 12:38 | Outpatient (BNV) | payer MEDICARE, MEDICAID, SELFPAY | PROVIDERS: PCP Internal Medicine; Visit Provider Radiology Diagnostic Radiology | DX: R13.10 Dysphagia, unspecified (principal) | CPT/HCPCS: 74230 ==

== ENCOUNTER 2022-11-27 10:30 | Outpatient (AMB) | payer MEDICARE, MEDICAID, SELFPAY ==
--- NOTE | 2022-11-27 10:34 | MHC.OFFVIS ---
Intake Vital Signs 11/27/22 10:37 Height 5 ft 3 in Weight 105 lb 13.15 oz BMI 18.7 BP 113/65 Blood Pressure Location Lt brachial Position Sitting Pulse 99 Intake Visit Reasons: Discuss PEG Tube Intake Note: Dagoberto presents in the office as a consult for PEG tube. CC: Speech therapy has stopped and he was assessed. They have the paperwork. Allergies clindamycin Allergy (Unknown, Verified 11/27/22 10:37) Unknown Sulfa (Sulfonamide Antibiotics) [SULFA(SULFONAMIDE ANTIBIOTICS)] Allergy (Unknown, Verified 11/27/22 10:37) UNKNOWN sulfamethoxazole [From Bactrim] Allergy (Unknown, Verified 11/27/22 10:37) Unknown trimethoprim [From Bactrim] Allergy (Unknown, Verified 11/27/22 10:37) Unknown HPI Discuss PEG Tube HPI Details 67-year-old male with a PMH significant for?hypothyroidism, chronic constipation, GERD, normocytic anemia, hx of failure to thrive, and schizophrenia who I am seeing for f/u for aspiration RECAP: Patient had an MBS due to choking on background hx of multiple admissions for aspiration penumonia He had danielle aspiration on recent MBS and down graded by SALT due to concerns Imaging with CT chest has revealed b/l lung infiltrates suspicious for aspiration pneumonia in the past as well as large esophgeal tic in the aortic area. He has had EGD in 2016 and 2014 with note made of dilated esophagus with poor motility. INTERIM; coughing a lot hx from staff in attendance as patient has psychiatric illness, getting SALT on strict diet losing weight 3# over 1 month I talked to sister on phone, April, do not want any invasive procedures incl G tube, he enjoys food and they do not want him to lose that pleasure EXAM: GENERAL: The patient is thin VITAL SIGNS:see workflow HEENT: Nonicteric sclerae, PERRLA, EOMI. Oropharynx clear. Moist mucous membranes. Conjunctivae appear well perfused. No thyroid mass. CHEST: Chest wall is nontender. HEART: Regular rate and rhythm without murmurs. LUNGS: Clear to auscultation bilaterally. ABDOMEN: Soft, positive bowel sounds, nontender, no organomegaly.no flank tenderness SKIN: No rash, no excessive bruising, petechiae, or purpura. NEUROLOGIC: Cranial nerves II-XII intact without motor/sensory deficit. A/P: 1/FTT- severe oral pharygeal dysphagia, etiology unclear, brayden do no want invasive procedures, he is DNR PLAN: 1/ Hold on repeat MBS for the moment and follow clincially 2/ If family changes mind we are available to place G tube, he would have to go to a SnF as well and would be unable to stay in alf 3/ trial of hyper chava with nebulizer and see if helps 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 Paraparesis Metabolic encephalopathy COVID-19 Adult failure to thrive MVP (mitral valve prolapse) Mentally challenged Anxiety GERD (gastroesophageal reflux disease) Impaired glucose tolerance Tracheomalacia Schizophrenia Tubular adenoma of colon COPD (chronic obstructive pulmonary disease) Pneumonia Anemia Hypothyroid Depression Asthma Oropharyngeal dysphagia Surgical History History of bronchoscopy History of colonoscopy S/P tracheoplasty History of esophagogastroduodenoscopy (EGD) Family History Family/Other Unknown family medical history Father Hypertension Mother Unknown family medical history Brother No problems noted. Sister No problems noted. Social History Household Members: Other Household Members Other:: [facility] Housing: Other Housing Other:: alf Are you a primary critical care rn to a significant other at home: No Unable to assess alcohol history related to: Unable to respond and Unknown Alcohol intake: never Patient Tobacco Use Status: Never used Tobacco e-Cigarette/Vaping Use: Never Used Second Hand Smoke Exposure: No Advance Directives Date on File: 11/28/20 service: No Current occupational status: disabled Cognitive needs: Yes Hearing needs: No Vision needs: No Physical Exam Vital Signs: BMI result Body Mass Index 18.7 Assessment & Plan Assessment & Plan (1) Failure to thrive in adult: Code(s): R62.7 - Adult failure to thrive (2) Aspiration into airway: Code(s): T17.908A - Unspecified foreign body in respiratory tract, part unspecified causing other injury, initial encounter Medications: New compressor, for nebulizer As directed 1 ea 0RF sodium chloride 3.5% (Hyper-Chava) 4 mL inhalation Q6H PRN 240 mL 0RF secretions Coding Level of Care Code Est Pt Level 3 (97349) Diagnoses Failure to thrive in adult R62.7 Aspiration into airway T17.908A
[2022-11-27 10:37] VITALS: BP 113/65; PULSE 99; BMI 18.7
== END 2022-11-27 11:19 | disposition home or self-care (01) ==
PROVIDERS: PCP Internal Medicine; Visit Provider Internal Medicine Gastroenterology
DX: R62.7 Adult failure to thrive (principal); T17.908A Unspecified foreign body in respiratory tract, part unspecified causing other injury, initial encounter
CPT/HCPCS: 99213

== ENCOUNTER → 2022-11-27 10:30 | Outpatient (BNVA) | payer MEDICARE, MEDICAID, SELFPAY | PROVIDERS: PCP Internal Medicine; Visit Provider Internal Medicine Gastroenterology | DX: T17.908D Unspecified foreign body in respiratory tract, part unspecified causing other injury, subsequent encounter (principal); R62.7 Adult failure to thrive | CPT/HCPCS: 99212 ==

== ENCOUNTER 2022-12-03 11:33 | Outpatient (REF) | payer MEDICARE, MEDICAID, SELFPAY ==
--- NOTE | ~2022-12-03 | US_ITS ---
EXAMINATION: US RETROPERITONEAL COMPLETE (RENAL) CLINICAL INFORMATION: Urinary tract infection, site not specified. COMPARISON: X-ray [facility] 10/11/2021 and 08/27/2015. CT abdomen and pelvis 08/17/2021. TECHNIQUE: Real-time imaging of the kidneys and bladder. Limited visualization due to bowel gas. FINDINGS: RIGHT KIDNEY: 10.0 x 3.5 x 4.5 cm (SAG x AP x TRV). No hydronephrosis. No renal calculi. Limited visualization. Renal cortical thickness is normal. 0.8 cm lower pole cyst is simple. There is no indication for followup imaging. LEFT KIDNEY: 9.8 x 4.1 x 4.2 cm (SAG x AP x TRV). No hydronephrosis. No renal calculi. Renal cortical thickness is normal. Limited visualization. BLADDER: Well distended. Diffuse irregularity and thickening with trabeculation. Bladder wall. Prevoid bladder diverticulum and measures 0.9 x 1.1 x 1.0 cm Bilateral ureteral jets are not demonstrated. Prevoid bladder volume is 132 mL. Postvoid bladder volume is 17.8 mL. ADDITIONAL FINDINGS: Prostate enlarged with volume 84 mL. US/US retroperitoneal comp IMPRESSION: 1. No hydronephrosis. No renal calculi. 2. Enlarged prostate with volume 84 mL and postvoid bladder volume 17.8 mm 3. Diffuse irregularity and trabeculation thickening of the bladder wall as well as a 1.1 cm bladder diverticulum. Urology consultation and possible cystoscopy recommended for further evaluation.
== END 2022-12-03 11:34 | disposition home or self-care (01) ==
LOC: HO.US 11:33
PROVIDERS: PCP Internal Medicine; Visit Provider Internal Medicine
DX: N39.0 Urinary tract infection, site not specified (principal)
CPT/HCPCS: 76770

== ENCOUNTER 2022-12-15 09:23 | Outpatient (AMB) | payer MEDICARE, MEDICAID, SELFPAY ==
--- NOTE | 2022-12-15 09:42 | AM.OFFVISNUR ---
Intake Intake Visit Reasons: Flu vaccine Allergies clindamycin Allergy (Unknown, Verified 11/27/22 10:37) Unknown Sulfa (Sulfonamide Antibiotics) [SULFA(SULFONAMIDE ANTIBIOTICS)] Allergy (Unknown, Verified 11/27/22 10:37) UNKNOWN sulfamethoxazole [From Bactrim] Allergy (Unknown, Verified 11/27/22 10:37) Unknown trimethoprim [From Bactrim] Allergy (Unknown, Verified 11/27/22 10:37) Unknown Office Procedures Flu Questionnaire Does the patient have a severe egg allergy?: No Does the patient have severe life threatening allergies?: No Does the patient have a fever or illness today?: No Has the patient ever had Guillain-Otoe Syndrome?: No Has the patient ever had any past reaction to a flu shot?: No Immunizations flu vacc [id number] 6mos up(PF) 60 mcg(15 mcgx4)/0.5 mL IM syringe Performing Provider: Briana Reeves MD Performing Location: [facility] Administered by: Fior Joshi RN on 12/15/22 09:42 Dose Route Admin Location Dispensed Lot Number Expiration Date NDC [employer] 0.5 mL IM Left Deltoid 0.5 mL [id number] 08/22/23 [id number] [id number] VIS Given Date VIS Provided VIS Publication Date 12/15/22 Single Vaccine 20 Eligibility Eligibility Date Funding Source Not [facility] Eligible 12/15/22 Private Coding Assessment & Plan Assessment & Plan Orders: Orders Influenza [id number] Immunization Today Z23 - Encounter for immunization
== END 2022-12-15 09:46 | disposition home or self-care (01) ==
PROVIDERS: PCP Internal Medicine; Visit Provider Internal Medicine
DX: Z23 Encounter for immunization (principal)
CPT/HCPCS: 90471; 90686

== ENCOUNTER 2022-12-16 10:39 | Outpatient (AMB) | payer MEDICARE, MEDICAID, SELFPAY ==
[2022-12-16 10:39] VITALS: BP 110/70; PULSE 85; O2SAT 97; BMI 19.3
--- NOTE | 2022-12-16 10:39 | MHC.PC.OV ---
Vital Signs 12/16/22 10:39 Height 5 ft 3 in Weight 109 lb BMI 19.3 BP 110/70 Blood Pressure Location Lt brachial Position Sitting Pulse 85 Pulse Source Pulse Oximeter Pulse Oximetry (%) 97 Oxygen Delivery Method Room Air Intake Visit Reasons: 3month Follow up Intake Note: Patient here for a 3 month folow up, c/o red spot on buttocks, order to liquify meds Bacteriologist Food Required: No Accompanied by: staff Allergies clindamycin Allergy (Unknown, Verified 12/16/22 10:43) Unknown Sulfa (Sulfonamide Antibiotics) [SULFA(SULFONAMIDE ANTIBIOTICS)] Allergy (Unknown, Verified 12/16/22 10:43) UNKNOWN sulfamethoxazole [From Bactrim] Allergy (Unknown, Verified 12/16/22 10:43) Unknown trimethoprim [From Bactrim] Allergy (Unknown, Verified 12/16/22 10:43) Unknown Medication List - Last Reconciled 12/16/22 by Briana Reeves MD acetaminophen (Children's Tylenol) 640 mg (20 mL) PO QID PRN acetaminophen ER (Tylenol 8 Hour) 650 mg PO Q6H PRN ascorbic acid (vitamin C) 500 mg (5 mL) PO DAILY clozapine 200 mg PO BEDTIME clozapine 50 mg PO BEDTIME compressor, for nebulizer As directed ferrous sulfate 300 mg (5 mL) PO DAILY fluoxetine 40 mg PO DAILY levetiracetam (Keppra) 500 mg (5 mL) PO BID 30 days levothyroxine 25 mcg PO DAILY linaclotide (Linzess) 290 mcg PO DAILY lorazepam 0.5 mg PO BEDTIME omeprazole 20 mg PO BID@0630,1630 ondansetron HCl 8 mg PO BID PRN polyethylene glycol 3350 17 grams PO BID PRN propylene glycol-glycerin 1-0.3 % (Artificial Tears (glycerin-peg)) 1 drp ophthalmic (eye) QID [pull ups small As directed] [right AFO As directed] sennosides (senna) 17.2 mg (2 x 8.6 mg) PO BEDTIME sodium chloride 3.5% (Hyper-Chava) 4 mL inhalation Q6H PRN sodium chloride 3% 4 mL inhalation Q4H PRN triamcinolone acetonide 0.1% 1 appl topical BID zinc oxide 1 appl topical DAILY PRN zinc oxide 12.8% (Triple Paste) 1 appl See Protocol topical Q48H 14 days Tobacco use date assessed: 09/03/22 Fall risk assessment: No Falls in past year Last assessed Fall Risk: 12/16/22 Dental Screening Dental Screen Date: 12/16/22 Did you have a dental visit in the last 12 months?: No Did you have a dental problem in the last 6 months where you did not have access to dental care?: No Was dental information given to patient?: Patient has dentist HPI 3month Follow up HPI Details 67-year-old male with mental behavioral problem hypothyroidism GERD schizophrenia anemia BPH last seen in August 2022. Patient had pressure ulcer on the gluteal area which has healed. Patient is here for follow-up. Recent ultrasound showing enlarged prostate to 84 with diffuse irregularity and trabeculation of the bladder and has been advised referral to urology. Patient also follows up with Gastroenterology had a modified barium swallow to choking had aspiration. First call to family declined G-tube placement . Patient was advised to liquefy diet. 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 Paraparesis Metabolic encephalopathy COVID-19 Adult failure to thrive MVP (mitral valve prolapse) Mentally challenged Anxiety GERD (gastroesophageal reflux disease) Impaired glucose tolerance Tracheomalacia Schizophrenia Tubular adenoma of colon COPD (chronic obstructive pulmonary disease) Pneumonia Anemia Hypothyroid Depression Asthma Oropharyngeal dysphagia Surgical History History of bronchoscopy History of colonoscopy S/P tracheoplasty History of esophagogastroduodenoscopy (EGD) Family History Family/Other Unknown family medical history Father Hypertension Mother Unknown family medical history Brother No problems noted. Sister No problems noted. Social History Household Members: Other Household Members Other:: Resides in [facility] Housing: Other Housing Other:: [facility] Are you a primary customer care voice consultant to a significant other at home: No Unable to assess alcohol history related to: Unable to respond and Unknown Alcohol intake: never Patient Tobacco Use Status: Never used Tobacco e-Cigarette/Vaping Use: Never Used Second Hand Smoke Exposure: No Advance Directives Date on File: 11/28/20 service: No Current occupational status: disabled Cognitive needs: Yes Hearing needs: No Vision needs: No Questionnaire Thrive Questionnaire Date Thrive assessed: 03/11/22 OSORIO-7 AMB Questionnaire OSORIO-7 Date OSORIO - 7 assessed: 09/03/22 Source: Developed by Drs. Anthony Lyle, Adriana Ji, Gunner Snider and colleagues, with an educational jia from [employer]. Physical exam (Primary Care) Vital Signs: Last Vital Signs Pulse 85 12/16/22 10:39 BP 110/70 12/16/22 10:39 Pulse Ox 97 12/16/22 10:39 Oxygen Delivery Method Room Air 12/16/22 10:39 BMI result Body Mass Index 19.3 Tobacco/Smoking Status: Tobacco use Status Tobacco use date assessed 09/03/22 12/16/22 10:46 Patient Tobacco Use Status Never used Tobacco 12/16/22 10:46 e-Cigarette/Vaping Use Never Used 12/16/22 10:46 Thrive Assessment: Date of Thrive Assessment Date Thrive assessed 03/11/22 12/16/22 10:46 Const General: alert; No acute distress Eyes Conjunctivae: conjunctivae normal Resp Auscultation: clear to auscultation bilaterally Cardio Rate: regular rate Rhythm: regular rhythm GI Inspection: Yes normal to inspection Extrem General: Yes normal to inspection and No edema Assessment and Plan Assessment & Plan (1) Aspiration into airway: Code(s): T17.908A - Unspecified foreign body in respiratory tract, part unspecified causing other injury, initial encounter Plan: Patient had modified barium swallow showing aspiration and was advised G-tube feeding but family has declined surgical procedure from reading from gastro note (2) BPH (benign prostatic hyperplasia): Code(s): N40.0 - Benign prostatic hyperplasia without lower urinary tract symptoms Plan: Patient has been referred to urology (3) Iron deficiency anemia: Code(s): D50.9 - Iron deficiency anemia, unspecified Plan: Advised to take iron and vitamin-C (4) Schizophrenia: Code(s): F20.9 - Schizophrenia, unspecified Qualifiers: Schizophrenia type: catatonic schizophrenia Qualified Code(s): F20.2 - Catatonic schizophrenia Plan: Continue to follow-up with psychiatry and counseling (5) Hypothyroid: Code(s): E03.9 - Hypothyroidism, unspecified Qualifiers: Hypothyroidism type: acquired Qualified Code(s): E03.9 - Hypothyroidism, unspecified Plan: Continue with thyroid medication Orders: Orders Complete Blood Count Auto Diff 2 Months D50.9 - Iron deficiency anemia, unspecified Vitamin B12 and Folate 2 Months D50.9 - Iron deficiency anemia, unspecified Thyroid Stimulating Hormone 2 Months F20.2 - Catatonic schizophrenia Comprehensive Met. Panel 2 Months F20.2 - Catatonic schizophrenia Ferritin 2 Months D50.9 - Iron deficiency anemia, unspecified IRON PROFILE 2 Months D50.9 - Iron deficiency anemia, unspecified Reticulocyte Count 2 Months D50.9 - Iron deficiency anemia, unspecified Free T4 (Free Thyroxine) 2 Months F20.2 - Catatonic schizophrenia Medications: New acetaminophen (Children's Tylenol) 640 mg (20 mL) PO QID PRN 118 mL 8RF pain/temp> 101 ferrous sulfate 300 mg (5 mL) PO DAILY 120 mL 2RF D50.9 - Iron deficiency anemia, unspecified ascorbic acid (vitamin C) 500 mg (5 mL) PO DAILY 120 mL 3RF D50.9 - Iron deficiency anemia, unspecified blood pressure monitor (Blood Pressure Kit) As directed pediatric cuff 1 ea 0RF F20.2 - Catatonic schizophrenia, I10 - Essential (primary) hypertension Changed From levothyroxine 25 mcg PO DAILY 30 tabs 0RF To levothyroxine Crush the pill 25 mcg PO DAILY 30 tabs 5RF Discontinued ascorbic acid (vitamin C) (Vitamin C) Discontinued Reason: Doctor's Order 500 mg PO DAILY 90 tabs 3RF Coding Level of Care Code Est Pt Level 4 (90362) Diagnoses Aspiration into airway T17.908A BPH (benign prostatic hyperplasia) N40.0 Iron deficiency anemia D50.9 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
== END 2022-12-16 11:31 | disposition home or self-care (01) ==
LOC: HO.HMGH 10:39
PROVIDERS: PCP Internal Medicine; Visit Provider Internal Medicine
DX: N40.0 Benign prostatic hyperplasia without lower urinary tract symptoms (principal); T17.908A Unspecified foreign body in respiratory tract, part unspecified causing other injury, initial encounter; F20.2 Catatonic schizophrenia; D50.9 Iron deficiency anemia, unspecified; E03.9 Hypothyroidism, unspecified
CPT/HCPCS: 99214

== ENCOUNTER 2022-12-16 11:45 | Outpatient (REF) | payer MEDICARE, MEDICAID, SELFPAY ==
[2022-12-16 12:05] LABS: MANUAL DIFF FLAG NO
[2022-12-16 12:29] LABS: Basophils Absolute Auto 0.1 X10*3/uL (0.0-0.2); Basophils Percent Auto 0.4 % (0-2); Eosinophils Absolute Auto 0.2 X10*3/uL (0.0-0.4); Eosinophils Percent Auto 1.4 % (0-4); Hematocrit 35.5 % (42.0-52.0); Hemoglobin 11.8 g/dl (14.0-18.0); Imm Gran Abs Auto 0.05 X10*3/uL (0.00-0.03); Imm Gran Pct Auto 0.4 % (0.0-0.4); Immature Retic Fraction 9.8 % (2.3-13.4); Lymphocytes Absolute Auto 1.1 X10*3/uL (1.2-4.9); Lymphocytes Percent Auto 9.6 % (20-40); Mean Corpuscular HGB Conc 33.2 g/dl (31.0-36.0); Mean Corpuscular Hemoglobin 31.2 pg (27.0-33.0); Mean Corpuscular Volume 93.9 fL (80.0-98.0); Mean Platelet Volume 10.3 fL (9.4-12.4); Monocytes Absolute Auto 0.7 X10*3/uL (0.1-1.2); Monocytes Percent Auto 6.1 % (2-11); Neutrophils Absolute Auto 9.2 x10*3/uL (2.0-8.3); Neutrophils Percent Auto 82.1 % (45-73); Platelet Count 298 X10*3/uL (160-400); Red Blood Count 3.78 X10*6/uL (4.60-5.80); Red Cell Distribution Width 13.4 % (11.0-16.0); Retic HGB Equivalent 35.6 pg (30.0-35.0); Reticulocyte Percent 1.4 % (0.5-1.8); Reticulocytes Absolute 0.051 X10*6/uL (0.026-0.095); White Blood Count 11.2 X10*3/uL (4.8-10.8)
[2022-12-16 12:33] LABS: Appearance Urine Clear; Color Urine Yellow; Glucose Urine UA Negative (Negative); Leukocyte Esterase Urine Trace (Negative); Nitrite Urine Negative (Negative); PH 5.5 (5.0-9.0); UMIC TRIGGER UACC YES; Urine Blood Negative (Negative); Urine Ketones Negative (Negative); Urine Protein Negative (Neg-Trace)
[2022-12-16 12:36] LABS: Bacteria Urine None Seen (None Seen); Hyaline Casts Urine 0-2 /LPF (0-2); Squamous Epithelial Cell Urine 0-2 /HPF (0-2); WBC Urine 0-5 /HPF (0-5)
[2022-12-16 13:13] LABS: Alanine Aminotransferase 11 U/L (0-40); Alkaline Phosphatase 70 U/L (39-117); Anion Gap 11 (12-20); Aspartate Amino Transferase 15 U/L (5-37); Bilirubin Total 0.2 mg/dL (0.0-1.0); Blood Urea Nitrogen 15 mg/dL (9-16); Calcium 10.3 mg/dL (8.4-10.2); Carbon Dioxide 26 mmol/L (22-29); Chloride 103 mmol/L (96-108); Cholesterol 181 mg/dL (<200); Estimated Glomerular Filt Rate > 60; Glucose Random 87 mg/dL (60-115); HDL Cholesterol 62 mg/dL (>40); Iron 23 mcg/dL (45-160); LDL Cholesterol Calculated 102 mg/dL (<100); Percent Iron Saturation 9 % (15-50); Potassium 4.2 mmol/L (3.3-5.1); Sodium 136 mmol/L (135-145); Total Iron Binding Capacity 250 mcg/dL (228-428); Total Protein 7.3 g/dL (6.5-8.0); Triglycerides 87 mg/dL (<150); Unsaturated Iron Binding 227 ug/dL
[2022-12-16 13:22] LABS: Ferritin 77 ng/mL (20-250); Free T4 (Free Thyroxine) 0.81 ng/dL (0.71-1.85); Thyroid Stimulating Hormone 4.82 uIU/mL (0.32-4.0)
[2022-12-16 13:33] LABS: Folate 11.2 ng/mL (> or = 4.0); Vitamin B12 842 pg/mL (200-900)
== END 2022-12-16 11:46 | disposition home or self-care (01) ==
LOC: HO.LAB 11:45
PROVIDERS: PCP Internal Medicine; Visit Provider Internal Medicine
DX: R11.0 Nausea (principal); D50.9 Iron deficiency anemia, unspecified; F20.2 Catatonic schizophrenia; E03.9 Hypothyroidism, unspecified; Z13.220 Encounter for screening for lipoid disorders
CPT/HCPCS: 36415; 80053; 80061; 81001; 82607; 82728; 82746; 83540; 84439; 84443; 85025; 85045

== ENCOUNTER 2023-01-02 13:44 | Emergency (ER) | payer MEDICARE, MEDICAID, SELFPAY ==
--- NOTE | ~2023-01-02 | XR_ITS ---
EXAMINATION: XR CHEST CLINICAL INFORMATION: Question aspiration pneumonia. COMPARISON: 06/30/2022. TECHNIQUE: Portable AP view of the chest was obtained. XR/XR chest 1V FINDINGS/IMPRESSION: The study is limited by portable technique and poor inspiration. Small bibasilar patchy densities suggest focal infiltrates and/or atelectasis, grossly similar compared with 06/30/2022. No effusion or pneumothorax is seen. The heart appears normal in size. There may be an old fracture deformity of the posterior aspect of the right fifth rib, unchanged. The bones otherwise appear unremarkable.
[2023-01-02 13:52] VITALS: BP 105/66; BP 118/60; PULSE 63; PULSE 77; RESP 16; TEMP 36.9; O2SAT 94; O2SAT 97; BMI 18.3
[2023-01-02 14:44] LABS: MANUAL DIFF FLAG NO
[2023-01-02 14:45] LABS: Basophils Percent Auto 0.3 % (0-2); Eosinophils Percent Auto 0.3 % (0-4); Hemoglobin 11.8 g/dl (14.0-18.0); Imm Gran Abs Auto 0.05 X10*3/uL (0.00-0.03); Imm Gran Pct Auto 0.4 % (0.0-0.4); Lymphocytes Absolute Auto 0.9 X10*3/uL (1.2-4.9); Lymphocytes Percent Auto 7.5 % (20-40); Mean Corpuscular HGB Conc 32.8 g/dl (31.0-36.0); Mean Corpuscular Hemoglobin 30.3 pg (27.0-33.0); Mean Corpuscular Volume 92.3 fL (80.0-98.0); Mean Platelet Volume 9.8 fL (9.4-12.4); Monocytes Absolute Auto 0.5 X10*3/uL (0.1-1.2); Neutrophils Absolute Auto 10.6 x10*3/uL (2.0-8.3); Neutrophils Percent Auto 87.5 % (45-73); Platelet Count 264 X10*3/uL (160-400); Red Cell Distribution Width 13.2 % (11.0-16.0); White Blood Count 12.2 X10*3/uL (4.8-10.8)
[2023-01-02 14:59] LABS: Anion Gap 11 (12-20); Blood Urea Nitrogen 17 mg/dL (9-16); Calcium 9.3 mg/dL (8.4-10.2); Carbon Dioxide 27 mmol/L (22-29); Chloride 104 mmol/L (96-108); Creatinine Clr Calc Pharmacy 65.6; Estimated Glomerular Filt Rate > 60; Glucose Random 116 mg/dL (60-115); Potassium 3.9 mmol/L (3.3-5.1); Sodium 138 mmol/L (135-145)
[2023-01-02 15:22] LABS: Influenza A PCR NEGATIVE (Negative); Influenza B PCR NEGATIVE (Negative); Resp Syncy Virus RNA Qual PCR NEGATIVE (Negative); SARS COV2 PCR INHOUSE NEGATIVE (Negative)
[2023-01-02 16:21] VITALS: BP 117/68; PULSE 74; RESP 16; O2SAT 96
--- NOTE | 2023-01-02 16:41 | ED_ITS ---
HPI - General Adult General Chief complaint: General Medical Stated complaint: PNEUMONIA Time Seen by Provider: 01/02/23 15:47 Source: patient Mode of arrival: EMS Limitations: altered mental status and physical limitation History of Present Illness HPI narrative: Patient is a 67-year-old male with history of schizophrenia, dysphagia, aspiration pneumonia, tracheomalacia presenting to the emergency department from [facility] with concern for aspiration pneumonia. Staff reported that patient has had dysphagia status post tracheal plasty to EMS. EMS reported cough. Staff reported patient is baseline mental status to EMS. Patient unable to report history and no staff present at bedside during exam. MD complaint: cough Onset (ago): hour(s) Location: chest Treatments prior to arrival: none Related Data Home Medications Medication Instructions Recorded Confirmed clozapine 100 mg tablet 200 mg PO BEDTIME 11/27/20 12/16/22 fluoxetine 20 mg capsule 40 mg PO DAILY 11/27/20 12/16/22 clozapine 25 mg tablet 50 mg PO BEDTIME 08/13/21 12/16/22 triamcinolone acetonide 0.1 % 1 appl topical BID 10/10/21 12/16/22 topical cream lorazepam 0.5 mg tablet 0.5 mg PO BEDTIME 10/19/21 12/16/22 polyethylene glycol 3350 17 17 g PO BID PRN Constipation 10/19/21 12/16/22 gram/dose oral powder acetaminophen 650 mg 650 mg PO Q6H PRN PAIN/FEVER 05/19/22 12/16/22 tablet,extended release (Tylenol 8 Hour) propylene glycol 1 %-glycerin 0.3 1 drp ophthalmic (eye) QID 06/25/22 12/16/22 % eye drops (Artificial Tears (glycerin-peg)) zinc oxide 1 appl topical DAILY PRN Wound Care 06/25/22 12/16/22 Previous Rx's Medication Instructions Recorded pull ups small #100 ea 06/05/20 right AFO #1 ea 11/24/21 omeprazole 20 mg capsule,delayed 20 mg PO BID@0630,1630 #60 caps 05/19/22 release ondansetron HCl 8 mg tablet 8 mg PO BID PRN nausea and 06/11/22 vomiting #20 tabs zinc oxide 12.8 % topical ointment 1 appl topical Q48H 14 days #227 06/30/22 (Triple Paste) grams compressor, for nebulizer #1 ea 11/27/22 levetiracetam 100 mg/mL oral 500 mg (5 mL) PO BID 30 days #300 11/27/22 solution (Keppra) mL sodium chloride 3.5 % for 4 ml inhalation Q6H PRN secretions 11/27/22 nebulization (Hyper-Chava) #240 mL sennosides 8.6 mg capsule (senna) 17.2 mg (2 x 8.6 mg) PO BEDTIME 12/01/22 #60 caps linaclotide 290 mcg capsule 290 mcg PO DAILY #30 caps 12/04/22 (Linzess) sodium chloride 3 % for 4 ml inhalation Q4H PRN secretions 12/04/22 nebulization #750 mL acetaminophen 160 mg/5 mL oral 640 mg (20 mL) PO QID PRN 12/16/22 suspension (Children's Tylenol) pain/temp> 101 #118 mL blood pressure monitor (Blood #1 ea 12/16/22 Pressure Kit) levothyroxine 25 mcg tablet 25 mcg PO DAILY #30 tabs 12/16/22 ascorbic acid (vitamin C) 500 mg/5 500 mg (5 mL) PO DAILY #120 mL 12/21/22 mL oral liquid ferrous sulfate 220 mg (44 mg 220 mg (5 mL) PO DAILY 30 days 12/21/22 iron)/5 mL oral elixir #150 mL amoxicillin 875 mg-potassium 1 tab PO BID #10 tabs 01/02/23 clavulanate 125 mg tablet doxycycline hyclate 100 mg tablet 100 mg PO BID #10 tabs 01/02/23 Allergies Allergy/AdvReac Type Severity Reaction Status Date / Time clindamycin Allergy Unknown Unknown Verified 12/16/22 10:43 Sulfa (Sulfonamide Allergy Unknown UNKNOWN Verified 12/16/22 10:43 Antibiotics) [SULFA(SULFONAMIDE ANTIBIOTICS)] sulfamethoxazole Allergy Unknown Unknown Verified 12/16/22 10:43 [From Bactrim] trimethoprim [From Bactrim] Allergy Unknown Unknown Verified 12/16/22 10:43 Review of Systems 2 Review of Systems: As per HPI. 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 Paraparesis Metabolic encephalopathy COVID-19 Adult failure to thrive MVP (mitral valve prolapse) Mentally challenged Anxiety GERD (gastroesophageal reflux disease) Impaired glucose tolerance Tracheomalacia Schizophrenia Tubular adenoma of colon COPD (chronic obstructive pulmonary disease) Pneumonia Anemia Hypothyroid Depression Asthma Oropharyngeal dysphagia Surgical History History of bronchoscopy History of colonoscopy S/P tracheoplasty History of esophagogastroduodenoscopy (EGD) Family History Family History Family/Other Unknown family medical history Father Hypertension Mother Unknown family medical history Brother No problems noted. Sister No problems noted. Social History Social History Household Members: Other Household Members Other:: Resides in [facility] Housing: Other Housing Other:: [facility] Are you a primary care tech to a significant other at home: No Unable to assess alcohol history related to: Unable to respond and Unknown Alcohol intake: never Patient Tobacco Use Status: Never used Tobacco Smoked in Last 30 Days: No e-Cigarette/Vaping Use: Never Used Second Hand Smoke Exposure: No Use of substances other than those prescribed or required for medical reasons: No Advance Directives: Yes Advance Directives on File: Yes Advance Directives Date on File: 11/28/20 service: No Current occupational status: disabled Cognitive needs: Yes Hearing needs: No Vision needs: No Physical Exam ED Vital Signs: Vital Signs - 24 hr 01/02/23 13:52 01/02/23 16:21 01/02/23 19:43 Temperature 98.5 F 98.6 F Pulse Rate 77 74 77 Respiratory Rate 16 16 16 Blood Pressure 105/66 117/68 138/69 Pulse Oximetry 97 96 96 Oxygen Delivery Method Room Air Room Air BMI result Body Mass Index 18.3 Vital signs have been reviewed and appear to be correct. Blood pressure normal. Heart rate normal. Respiratory rate normal. Temperature normal. Oxygen saturation normal. Const General: no acute distress, alert and awake Limitations: altered mental status and physical limitations HENMT Head: Yes normocephalic and Yes atraumatic Ears: external ears normal General nose exam: Normal external nose present Face and sinus: Yes face symmetric Mouth: oropharynx normal and moist mucous membranes Throat: Yes uvula midline Eyes Pupils: Equal, round and reactive pupils present Neck Neck: Yes normal visual inspection and Yes supple Chest Chest palpation & inspection: normal inspection of the chest and normal palpation of entire chest wall Resp Effort & Inspection: normal respiratory effort and able to speak in complete sentences Auscultation: clear to auscultation bilaterally Cardio Rate: regular rate Rhythm: regular rhythm Heart sounds: S1 normal heart sound present and S2 normal heart sound present GI Palpation (GI): Soft to palpation and nontender Auscultation: normoactive bowel sounds General: Yes no CVA tenderness Back/Spine/Pelvis Back: no CVA tenderness Skin General skin exam: elasticity normal and turgor normal Neuro General: tone normal, moves all extremities and no focal motor deficits Cranial nerves: Yes Equal, round and reactive pupils present Extrem General: Yes full ROM, Yes no pedal edema and Yes no calf tenderness Medical Decision Making Medical Decision Making [facility] Narrative: Patient is a 67-year-old male with history of schizophrenia, dysphagia, aspiration pneumonia, tracheomalacia presenting to the emergency department from [facility] with concern for aspiration pneumonia. On exam patient is awake, alert, VS WNL, afebrile, nontoxic appearing, physical exam findings as above. Given reported symptoms and physical exam findings, initial differential includes aspiration pneumonia, CAP, viral illness, Covid, flu. Labs notable for mild leukocytosis with left shift, no significant electrolyte abnormalities. Flu/COVID/RSV swabs negative. X-ray chest notable for small bibasilar patchy densities suggestive of focal infiltrates. My interpretation is in agreement with the radiologist's interpretation. Given history of aspiration pneumonia and leukocytosis on labs, will treat with antibiotics at this time. Given that patient is afebrile, not tachycardic now, not hypotensive here feel he is stable for discharge back to [facility] on p.o. antibiotics. Return precautions noted in discharge instructions. Staff advised to follow-up with patient's primary care provider this week. Differential Diagnosis Differential Diagnoses: The differential diagnosis associated with the presentation includes As per MDM. Lab Data [facility] Lab Attestation statement: I reviewed the patient's lab results. As per [facility]. 01/02/23 14:39 01/02/23 14:39 Labs: Lab Results 01/02/23 01/02/23 Range/Units 14:39 16:50 WBC 12.2 H (4.8-10.8) X10*3/uL RBC 3.90 L (4.60-5.80) X10*6/uL Hgb 11.8 L (14.0-18.0) g/dl Hct 36.0 L (42.0-52.0) % MCV 92.3 (80.0-98.0) fL MCH 30.3 (27.0-33.0) pg MCHC 32.8 (31.0-36.0) g/dl RDW 13.2 (11.0-16.0) % Plt Count 264 (160-400) X10*3/uL MPV 9.8 (9.4-12.4) fL Immature Gran % (Auto) 0.4 (0.0-0.4) % Neut % (Auto) 87.5 H (45-73) % Lymph % (Auto) 7.5 L (20-40) % [place] % (Auto) 4.0 (2-11) % Eos % (Auto) 0.3 (0-4) % Baso % (Auto) 0.3 (0-2) % Lymph # (Auto) 0.9 L (1.2-4.9) X10*3/uL [place] # (Auto) 0.5 (0.1-1.2) X10*3/uL Eos # (Auto) 0.0 (0.0-0.4) X10*3/uL Baso # (Auto) 0.0 (0.0-0.2) X10*3/uL Abs Immat Gran (auto) 0.05 H (0.00-0.03) X10*3/uL Absolute Neuts (auto) 10.6 H (2.0-8.3) x10*3/uL Absolute Nucleated RBC 0.000 (0.0-0.012) X10*3/uL Nucleated RBC % (auto) 0.0 (0.0-0.2) /100WBC Sodium 138 (135-145) mmol/L Potassium 3.9 (3.3-5.1) mmol/L Chloride 104 (96-108) mmol/L Carbon Dioxide 27 (22-29) mmol/L Anion Gap 11 L (12-20) BUN 17 H (9-16) mg/dL Creatinine 0.76 (0.5-1.4) mg/dL Estim Creat Clear Calc 65.6 Estimated GFR > 60 Random Glucose 116 H (60-115) mg/dL Calcium 9.3 D (8.4-10.2) mg/dL Influenza Type A (PCR) NEGATIVE (Negative) Influenza Type B (PCR) NEGATIVE (Negative) RSV RNA Qual (PCR) NEGATIVE (Negative) SARS-CoV-2 RNA (RT-PCR) NEGATIVE (Negative) Independent Interpretation I performed an independent interpretation of an: Plain X-Ray Interpretation: Small bibasilar patchy densities suggestive of focal infiltrates Radiology Impression Discussion of test interpretation with radiology: I have reviewed the radiologist's reading. Radiologist Impression: XR/XR chest 1V FINDINGS/IMPRESSION: The study is limited by portable technique and poor inspiration. Small bibasilar patchy densities suggest focal infiltrates and/or atelectasis, grossly similar compared with 06/30/2022. No effusion or pneumothorax is seen. The heart appears normal in size. There may be an old fracture deformity of the posterior aspect of the right fifth rib, unchanged. The bones otherwise appear unremarkable. Independent Historian Clinical information obtained from an independent historian. History obtained from or confirmed by: EMS External Record Review External record reviewed: Inpatient record, Office record and Outpatient record Prescription Management I considered prescription management with: Antibiotic Discharge Plan Discharge Clinical Impression: Aspiration pneumonia Patient Disposition: Home, Self-Care Instructions: Aspiration Pneumonia (DC), Aspiration Precautions (ED) Additional Instructions: Dagoberto is being treated for aspiration pneumonia, please be sure he completes his full course of antibiotics as prescribed. Please follow-up with his primary care provider this week. Return to the emergency department if he develops a fever greater than 100.4? F, shortness of breath, difficulty breathing, chest pain, or any other concerning symptoms. Prescriptions: New amoxicillin-pot clavulanate 875-125 mg tablet 1 tab PO BID Qty: 10 0RF doxycycline hyclate 100 mg tablet 100 mg PO BID Qty: 10 0RF No Action (DME) right AFO See Rx Instructions .Route .MEDSUPPLY Qty: 1 0RF Rx Instructions: As directed ondansetron HCl 8 mg tablet 8 mg PO BID PRN (Reason: nausea and vomiting) Qty: 20 0RF levetiracetam [Keppra] 100 mg/mL solution 500 mg PO BID 30 Days Qty: 300 3RF senna 8.6 mg capsule 17.2 mg PO BEDTIME Qty: 60 6RF Linzess 290 mcg capsule 290 mcg PO DAILY Qty: 30 3RF sodium chloride 3 % solution for nebulization 4 ml inhalation Q4H PRN (Reason: secretions) Qty: 750 1RF ascorbic acid (vitamin C) 500 mg/5 mL liquid 500 mg PO DAILY Qty: 120 3RF ferrous sulfate 220 mg (44 mg iron)/5 mL elixir 220 mg PO DAILY 30 Days Qty: 150 2RF fluoxetine 20 mg capsule 40 mg PO DAILY lorazepam 0.5 mg tablet 0.5 mg PO BEDTIME polyethylene glycol 3350 17 gram/dose powder 17 g PO BID PRN (Reason: Constipation) triamcinolone acetonide 0.1 % Cream 1 appl TOPICAL BID Artificial Tears(glycerin-peg) 1-0.3 % Drops 1 drp OPHTHALMIC (EYE) QID zinc oxide Ointment 1 appl TOPICAL DAILY PRN (Reason: Wound Care) Triple Paste 12.8 % Ointment 1 appl topical Q48H 14 Days Qty: 227 0RF Protocol: Apply to: Apply to: use with dressing chnage (DME) pull ups small See Rx Instructions .Route .MEDSUPPLY Qty: 100 11RF Rx Instructions: As directed clozapine 100 mg tablet 200 mg PO BEDTIME clozapine 25 mg tablet 50 mg PO BEDTIME levothyroxine 25 mcg tablet 25 mcg PO DAILY Qty: 30 5RF Rx Instructions: Crush the pill acetaminophen [Children's Tylenol] 160 mg/5 mL suspension 640 mg PO QID PRN (Reason: pain/temp> 101) Qty: 118 8RF (DME) blood pressure monitor [Blood Pressure Kit] Kit See Rx Instructions .ROUTE .MEDSUPPLY Qty: 1 0RF Rx Instructions: As directed pediatric cuff acetaminophen [Tylenol 8 Hour] 650 mg tablet extended release 650 mg PO Q6H PRN (Reason: PAIN/FEVER) omeprazole 20 mg capsule,delayed release(DR/EC) 20 mg PO BID@0630,1630 Qty: 60 6RF (DME) compressor, for nebulizer Device See Rx Instructions .Route Qty: 1 0RF Rx Instructions: As directed Hyper-Chava 3.5 % solution for nebulization 4 ml inhalation Q6H PRN (Reason: secretions) Qty: 240 0RF
[2023-01-02 19:43] VITALS: BP 138/69; PULSE 77; RESP 16; TEMP 37; O2SAT 96
--- NOTE | 2023-01-02 19:44 | PC.NURSE ---
care assumed of patient at this time; pt resting comfortable in stretcher. in no apparent distress. resps are even and unlabored. side rails are up. bed in lowest position and brakes in place.
--- NOTE | 2023-01-02 20:56 | PC.NURSE ---
RN unavailable, this Rn gave report to EMS.
== END 2023-01-02 20:58 | disposition home or self-care (01) ==
PROVIDERS: Emergency Provider Student in an Organized Health Care Education/Training Program
DX: J69.0 Pneumonitis due to inhalation of food and vomit (principal); R13.12 Dysphagia, oropharyngeal phase; K21.9 Gastro-esophageal reflux disease without esophagitis; D50.9 Iron deficiency anemia, unspecified; Z20.822 Contact with and (suspected) exposure to COVID-19; Z20.828 Contact with and (suspected) exposure to other viral communicable diseases; Z79.899 Other long term (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
CPT/HCPCS: 0241U; 71045; 80048; 85025; 99283; 99284

== ENCOUNTER 2023-01-23 08:03 | Emergency (ER) | payer MEDICARE, MEDICAID, SELFPAY ==
--- NOTE | ~2023-01-23 | CT_ITS ---
CT HEAD WITHOUT IV CONTRAST CT CERVICAL SPINE WITHOUT IV CONTRAST INDICATION: Trauma. COMPARISON: Head CT 06/26/2022. TECHNIQUE: Multidetector CT acquisitions of the head and cervical spine were obtained without IV contrast. Multiplanar reformats were acquired and utilized for image interpretation. This CT examination was performed using dose optimization techniques as appropriate, variously including the following: *Automated exposure control *Adjustment of mA and/or kV according to patient size (this includes techniques or standardized protocols for targeted exams where dose is matched to indication/reason for exam; i.e. extremities or head) *Use of iterative reconstruction technique FINDINGS: HEAD: Small left frontoparietal convexity subdural fluid collection and small right frontal convexity subdural fluid collection. Extra-axial spaces within the left posterior fossa is prominent in size. There is no intracranial hemorrhage, hydrocephalus, midline shift, or other herniation pattern. Nelson to white matter differentiation is diffusely maintained without evidence of an evolved acute territorial infarct. The basilar cisterns are preserved. No significant soft tissue abnormality. No acute osseous abnormality. The paranasal sinuses and the mastoid air cells are well aerated. Cerumen within the left external auditory canal. CERVICAL SPINE: Acute fractures and no acute subluxations within the cervical spine. There is mild cervical spondylosis. Hypertrophic degenerative changes involving the atlantodental interval. No significant soft tissue abnormality within the neck. The visualized lung apices are clear. CT/CT head/brain wo IV con IMPRESSION: - No acute intracranial abnormality. No acute hemorrhage. Small left frontoparietal convexity subdural fluid collection and small right frontal convexity subdural fluid collection. - No acute osseous abnormality within the cervical spine. Cervical spondylosis.
--- NOTE | ~2023-01-23 | CT_ITS ---
CT HEAD WITHOUT IV CONTRAST CT CERVICAL SPINE WITHOUT IV CONTRAST INDICATION: Trauma. COMPARISON: Head CT 06/26/2022. TECHNIQUE: Multidetector CT acquisitions of the head and cervical spine were obtained without IV contrast. Multiplanar reformats were acquired and utilized for image interpretation. This CT examination was performed using dose optimization techniques as appropriate, variously including the following: *Automated exposure control *Adjustment of mA and/or kV according to patient size (this includes techniques or standardized protocols for targeted exams where dose is matched to indication/reason for exam; i.e. extremities or head) *Use of iterative reconstruction technique FINDINGS: HEAD: Small left frontoparietal convexity subdural fluid collection and small right frontal convexity subdural fluid collection. Extra-axial spaces within the left posterior fossa is prominent in size. There is no intracranial hemorrhage, hydrocephalus, midline shift, or other herniation pattern. Nelson to white matter differentiation is diffusely maintained without evidence of an evolved acute territorial infarct. The basilar cisterns are preserved. No significant soft tissue abnormality. No acute osseous abnormality. The paranasal sinuses and the mastoid air cells are well aerated. Cerumen within the left external auditory canal. CERVICAL SPINE: Acute fractures and no acute subluxations within the cervical spine. There is mild cervical spondylosis. Hypertrophic degenerative changes involving the atlantodental interval. No significant soft tissue abnormality within the neck. The visualized lung apices are clear. CT/CT cervical spine wo IV con IMPRESSION: - No acute intracranial abnormality. No acute hemorrhage. Small left frontoparietal convexity subdural fluid collection and small right frontal convexity subdural fluid collection. - No acute osseous abnormality within the cervical spine. Cervical spondylosis.
--- NOTE | ~2023-01-23 | XR_ITS ---
EXAMINATION: XR SHOULDER, LEFT CLINICAL INFORMATION: Left shoulder pain COMPARISON: Left shoulder radiographs 08/17/2021. TECHNIQUE: Three views of the left shoulder. FINDINGS: Acute, comminuted, transverse fracture through the left humeral surgical neck with mild impaction. Glenohumeral joint space is well-preserved. No evidence of dislocation. Acromioclavicular joint is unremarkable. Coracoclavicular distance is normal. Soft tissues are unremarkable. XR/XR shoulder LT min 2V IMPRESSION: Acute, comminuted, mildly impacted left humeral neck fracture.
[2023-01-23 08:23] VITALS: BP 151/74; PULSE 84; RESP 17; TEMP 36.6; O2SAT 98; BMI 18.5
--- NOTE | 2023-01-23 08:41 | ECG_ITS ---
Test Reason : FALL Blood Pressure : / mmHG Vent. Rate : 085 BPM Atrial Rate : 085 BPM P-R Int : 152 ms QRS Dur : 084 ms QT Int : 362 ms P-R-T Axes : 052 009 022 degrees QTc Int : 430 ms Normal sinus rhythm with sinus arrhythmia Normal ECG When compared with ECG of 25-JUN-2022 13:40, Questionable change in QRS axis Referred By: Fernando Marie Electronically Signed By:PAMELLA OROZCO MD
--- NOTE | 2023-01-23 08:55 | ED.FALL ---
HPI - Fall General Chief Complaint: Fall Stated Complaint: fall - shoulder pain Time Seen by Provider: 01/23/23 08:33 Source: patient Mode of arrival: EMS Limitations: no limitations History of Present Illness HPI Narrative: This is 67 years old male presented to the emergency department after a fall. Patient lives in a shelter he has history of schizophrenia the fall was mechanical fall no syncope no LOC no injury noted. He arrived with the cervical collar MD complaint: fall Onset (ago): hour(s) (1) Fall from: standing Fall witnessed: yes, by living facility staff Place fall occurred: home Loss of consciousness: none Prolonged down time: no Context: tripped/slipped Associated symptoms (after fall): denies Related Data Home Medications Medication Instructions Recorded Confirmed clozapine 100 mg tablet 200 mg PO BEDTIME 11/27/20 12/16/22 fluoxetine 20 mg capsule 40 mg PO DAILY 11/27/20 12/16/22 clozapine 25 mg tablet 50 mg PO BEDTIME 08/13/21 12/16/22 triamcinolone acetonide 0.1 % 1 appl topical BID 10/10/21 12/16/22 topical cream lorazepam 0.5 mg tablet 0.5 mg PO BEDTIME 10/19/21 12/16/22 polyethylene glycol 3350 17 17 g PO BID PRN Constipation 10/19/21 12/16/22 gram/dose oral powder acetaminophen 650 mg 650 mg PO Q6H PRN PAIN/FEVER 05/19/22 12/16/22 tablet,extended release (Tylenol 8 Hour) propylene glycol 1 %-glycerin 0.3 1 drp ophthalmic (eye) QID 06/25/22 12/16/22 % eye drops (Artificial Tears (glycerin-peg)) zinc oxide 1 appl topical DAILY PRN Wound Care 06/25/22 12/16/22 Previous Rx's Medication Instructions Recorded pull ups small #100 ea 06/05/20 right AFO #1 ea 11/24/21 omeprazole 20 mg capsule,delayed 20 mg PO BID@0630,1630 #60 caps 05/19/22 release ondansetron HCl 8 mg tablet 8 mg PO BID PRN nausea and 06/11/22 vomiting #20 tabs zinc oxide 12.8 % topical ointment 1 appl topical Q48H 14 days #227 06/30/22 (Triple Paste) grams compressor, for nebulizer #1 ea 11/27/22 levetiracetam 100 mg/mL oral 500 mg (5 mL) PO BID 30 days #300 11/27/22 solution (Keppra) mL sodium chloride 3.5 % for 4 ml inhalation Q6H PRN secretions 11/27/22 nebulization (Hyper-Chava) #240 mL sennosides 8.6 mg capsule (senna) 17.2 mg (2 x 8.6 mg) PO BEDTIME 12/01/22 #60 caps linaclotide 290 mcg capsule 290 mcg PO DAILY #30 caps 12/04/22 (Linzess) sodium chloride 3 % for 4 ml inhalation Q4H PRN secretions 12/04/22 nebulization #750 mL acetaminophen 160 mg/5 mL oral 640 mg (20 mL) PO QID PRN 12/16/22 suspension (Children's Tylenol) pain/temp> 101 #118 mL blood pressure monitor (Blood #1 ea 12/16/22 Pressure Kit) levothyroxine 25 mcg tablet 25 mcg PO DAILY #30 tabs 12/16/22 ascorbic acid (vitamin C) 500 mg/5 500 mg (5 mL) PO DAILY #120 mL 12/21/22 mL oral liquid ferrous sulfate 220 mg (44 mg 220 mg (5 mL) PO DAILY 30 days 12/21/22 iron)/5 mL oral elixir #150 mL amoxicillin 875 mg-potassium 1 tab PO BID #10 tabs 01/02/23 clavulanate 125 mg tablet doxycycline hyclate 100 mg tablet 100 mg PO BID #10 tabs 01/02/23 Allergies Allergy/AdvReac Type Severity Reaction Status Date / Time clindamycin Allergy Unknown Unknown Verified 12/16/22 10:43 Sulfa (Sulfonamide Allergy Unknown UNKNOWN Verified 12/16/22 10:43 Antibiotics) [SULFA(SULFONAMIDE ANTIBIOTICS)] sulfamethoxazole Allergy Unknown Unknown Verified 12/16/22 10:43 [From Bactrim] trimethoprim [From Bactrim] Allergy Unknown Unknown Verified 12/16/22 10:43 Review of Systems Constitutional: Constitutional: Reports no additional constitutional complaints Cardiovascular: Cardiovascular: Reports no additional cardiovascular complaints Gastrointestinal: Gastrointestinal: Reports no additional gastrointestinal complaints PMFSH Past Medical History 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 Paraparesis Metabolic encephalopathy COVID-19 Adult failure to thrive MVP (mitral valve prolapse) Mentally challenged Anxiety GERD (gastroesophageal reflux disease) Impaired glucose tolerance Tracheomalacia Schizophrenia Tubular adenoma of colon COPD (chronic obstructive pulmonary disease) Pneumonia Anemia Hypothyroid Depression Asthma Oropharyngeal dysphagia Surgical History History of bronchoscopy History of colonoscopy S/P tracheoplasty History of esophagogastroduodenoscopy (EGD) Family History Family History Family/Other Unknown family medical history Father Hypertension Mother Unknown family medical history Brother No problems noted. Sister No problems noted. Social History Social History Household Members: Other Household Members Other:: Resides in Residential Housing: Other Housing Other:: shelter Are you a primary medicare contact specialist to a significant other at home: No Unable to assess alcohol history related to: Unable to respond and Unknown Alcohol intake: never Comment: 1:1 sitter Patient Tobacco Use Status: Never used Tobacco Smoked in Last 30 Days: No e-Cigarette/Vaping Use: Never Used Second Hand Smoke Exposure: No Use of substances other than those prescribed or required for medical reasons: No Advance Directives: Yes Advance Directives on File: Yes Advance Directives Date on File: 11/28/20 service: No Current occupational status: disabled Cognitive needs: Yes Hearing needs: No Vision needs: No Physical Exam Vital Signs: Vital Signs: Last Vital Signs Temp 98 F 01/23/23 08:23 Pulse 87 01/23/23 12:42 Resp 18 01/23/23 12:42 BP 127/85 01/23/23 12:42 Pulse Ox 97 01/23/23 12:42 O2 Del Method Room Air 01/23/23 12:42 BMI result Body Mass Index 18.5 Const: General: cooperative Nutritional Appearance: well nourished Orientation/consciousness: patient oriented x3 HEENT: Other: so sign of trauma Head: Yes normal to inspection General nose exam: Normal external nose present Mouth: Normal oral and palatal mucosa present Throat: Yes posterior oropharynx normal Neck: Neck: Yes normal visual inspection Chest: Chest palpation & inspection: normal inspection of the chest Resp: Effort & Inspection: normal respiratory effort Auscultation: clear to auscultation bilaterally Cardio: Jugular venous distension: no JVD Rate: regular rate Rhythm: regular rhythm GI: Inspection: Yes normal to inspection Palpation (GI): Soft to palpation, not firm and nontender Percussion: Yes normal to percussion Auscultation: normal bowel sounds : General: Yes no CVA tenderness Back/Spine/Pelvis: Back: no CVA tenderness Skin: General skin exam: no rashes or lesions noted, elasticity normal and turgor normal Lesions: no lesions Rashes: no rashes Neuro: General: patient oriented x3 Cranial nerves: Yes CN's II-XII intact bilaterally Cognition (Neuro): normal cognition Motor exam (neuro): 5/5 motor strength present throughout Extrem: Other: tenderness in the left shoulder with decrease ROM Medical Decision Making Medical Decision Making MDM Narrative: Patient presented after fall no LOC, we will get head ct and ct spine Differential Diagnosis Differential Diagnoses: The differential diagnosis associated with the presentation includes Subdural hematoma/epidural Independent Interpretation I performed an independent interpretation of an: EKG (Normal sinus rhythm a rate [address]-T change) and Plain X-Ray Interpretation: reviwed ct and xr shoulder Radiology Impression Discussion of test interpretation with radiology: I have reviewed the radiologist's reading. Radiologist Impression: Left shoulder radiographs 08/17/2021. TECHNIQUE: Three views of the left shoulder. FINDINGS: Acute, comminuted, transverse fracture through the left humeral surgical neck with mild impaction. Glenohumeral joint space is well-preserved. No evidence of dislocation. Acromioclavicular joint is unremarkable. Coracoclavicular distance is normal. Soft tissues are unremarkable. XR/XR shoulder LT min 2V IMPRESSION: Acute, comminuted, mildly impacted left humeral neck fracture. Discharge Plan Discharge Clinical Impression: Fall, Contusion of neck, Fracture, humerus, neck Patient Disposition: Home, Self-Care Instructions: Fall Prevention for Older Adults (ED), Fall Prevention (ED), Proximal Humerus Fracture (ED) Additional Instructions: Follow-up with your primary care physician and return if you are worse any concern Prescriptions: No Action (DME) right AFO See Rx Instructions .Route .MEDSUPPLY Qty: 1 0RF Rx Instructions: As directed ondansetron HCl 8 mg tablet 8 mg PO BID PRN (Reason: nausea and vomiting) Qty: 20 0RF levetiracetam [Keppra] 100 mg/mL solution 500 mg PO BID 30 Days Qty: 300 3RF senna 8.6 mg capsule 17.2 mg PO BEDTIME Qty: 60 6RF Linzess 290 mcg capsule 290 mcg PO DAILY Qty: 30 3RF sodium chloride 3 % solution for nebulization 4 ml inhalation Q4H PRN (Reason: secretions) Qty: 750 1RF ascorbic acid (vitamin C) 500 mg/5 mL liquid 500 mg PO DAILY Qty: 120 3RF ferrous sulfate 220 mg (44 mg iron)/5 mL elixir 220 mg PO DAILY 30 Days Qty: 150 2RF fluoxetine 20 mg capsule 40 mg PO DAILY lorazepam 0.5 mg tablet 0.5 mg PO BEDTIME polyethylene glycol 3350 17 gram/dose powder 17 g PO BID PRN (Reason: Constipation) triamcinolone acetonide 0.1 % Cream 1 appl TOPICAL BID Artificial Tears(glycerin-peg) 1-0.3 % Drops 1 drp OPHTHALMIC (EYE) QID zinc oxide Ointment 1 appl TOPICAL DAILY PRN (Reason: Wound Care) Triple Paste 12.8 % Ointment 1 appl topical Q48H 14 Days Qty: 227 0RF Protocol: Apply to: Apply to: use with dressing chnage amoxicillin-pot clavulanate 875-125 mg tablet 1 tab PO BID Qty: 10 0RF doxycycline hyclate 100 mg tablet 100 mg PO BID Qty: 10 0RF (DME) pull ups small See Rx Instructions .Route .MEDSUPPLY Qty: 100 11RF Rx Instructions: As directed clozapine 100 mg tablet 200 mg PO BEDTIME clozapine 25 mg tablet 50 mg PO BEDTIME levothyroxine 25 mcg tablet 25 mcg PO DAILY Qty: 30 5RF Rx Instructions: Crush the pill acetaminophen [Children's Tylenol] 160 mg/5 mL suspension 640 mg PO QID PRN (Reason: pain/temp> 101) Qty: 118 8RF (DME) blood pressure monitor [Blood Pressure Kit] Kit See Rx Instructions .ROUTE .MEDSUPPLY Qty: 1 0RF Rx Instructions: As directed pediatric cuff acetaminophen [Tylenol 8 Hour] 650 mg tablet extended release 650 mg PO Q6H PRN (Reason: PAIN/FEVER) omeprazole 20 mg capsule,delayed release(DR/EC) 20 mg PO BID@0630,1630 Qty: 60 6RF (DME) compressor, for nebulizer Device See Rx Instructions .Route Qty: 1 0RF Rx Instructions: As directed Hyper-Chava 3.5 % solution for nebulization 4 ml inhalation Q6H PRN (Reason: secretions) Qty: 240 0RF Referrals: Pawel Pizarro MD [Physician] - 3 days Interventions: ED Discharge Assessment Last Done: 01/23/23 15:21 Discharge Date/Time: 01/23/23 15:21
--- NOTE | 2023-01-23 11:18 | PC.NURSE ---
c collar removed by . got pt up and walked around ER. pt steady on feet with slow gait. Reporting left arm pain.
--- NOTE | 2023-01-23 11:31 | PC.NURSE ---
pt is ready for discharge. Called [facility] staff who said someone will be available to lease picker patient in the next hour
--- NOTE | 2023-01-23 12:15 | PC.NURSE ---
pt reports left shoulder pain and difficulty moving left shoulder. MD notified and x ray ordered
[2023-01-23 12:42] VITALS: BP 127/85; PULSE 87; RESP 18; O2SAT 97
== END 2023-01-23 15:21 | disposition home or self-care (01) ==
PROVIDERS: Emergency Provider Emergency Medicine; PCP Internal Medicine
DX: S42.212A Unspecified displaced fracture of surgical neck of left humerus, initial encounter for closed fracture (principal); S10.93XA Contusion of unspecified part of neck, initial encounter; W01.0XXA Fall on same level from slipping, tripping and stumbling without subsequent striking against object, initial encounter; Y93.9 Activity, unspecified; Y92.049 Unspecified place in boarding-house as the place of occurrence of the external cause; Y99.9 Unspecified external cause status
CPT/HCPCS: 70450; 72125; 73030; 93005; 99284

== ENCOUNTER → 2023-01-23 08:41 | Outpatient (BNV) | payer MEDICARE, MEDICAID, SELFPAY | PROVIDERS: Emergency Provider Emergency Medicine; PCP Internal Medicine; Visit Provider Internal Medicine Cardiovascular Disease | DX: M25.512 Pain in left shoulder (principal); W19.XXXA Unspecified fall, initial encounter | CPT/HCPCS: 93010 ==

== ENCOUNTER 2023-01-28 10:08 | Inpatient (IN) | payer MEDICARE, MEDICAID, SELFPAY ==
[2023-01-28] VITALS (8 sets, daily range): BP systolic 109–142; BP diastolic 63–86; PULSE 69–98; RESP 12–22; TEMP 36.1–38.3; O2SAT 97–99; BMI 19.9
--- NOTE | ~2023-01-28 | CT_ITS ---
EXAMINATION: CT HEAD WITHOUT CONTRAST CLINICAL INFORMATION: AMS COMPARISON: None available. TECHNIQUE: Contiguous axial imaging was performed from the skull base to vertex without intravenous administration of contrast. This CT examination was performed using dose optimization techniques as appropriate, variously including the following: *Automated exposure control *Adjustment of mA and/or kV according to patient size (this includes techniques or standardized protocols for targeted exams where dose is matched to indication/reason for exam; i.e. extremities or head) *Use of iterative reconstruction technique DLP: 551 mGy-cm FINDINGS: There is no acute intra-axial, extra-axial bleed, masses or midline shift. There is no acute infarction evolution. There is no edema. The gurrola to white matter differentiation is maintained. The lateral ventricles as symmetrical in size and configuration but enlarged and so are the cortical sulci. Bone windows reveal no calvarial abnormality. There is small polyp or retention cyst right frontal sinus. There is a soft tissue mass or debris seen in bilateral external auditory canal. CT/CT head/brain wo IV con IMPRESSION: 1. No acute intracranial process seen. 2. Age-related cerebral volume loss.
--- NOTE | 2023-01-28 10:50 | ED_ITS ---
HPI - General Adult General Chief complaint: General Medical Stated complaint: ?UTI,BAD SMELL,OFF BASELINE PER [facility] Time Seen by Provider: 01/28/23 10:35 Source: EMS Mode of arrival: EMS Limitations: other (Not telling me history, altered mental status) History of Present Illness HPI narrative: 59-year-old male presents from [facility], patient coming in because staff from [facility] report altered mental status, patient not acting his normal self and strong smell of urine. Upon history taking patient is barely answering questions sometimes answering yes or no questions. Unable to obtain a clear history due to patient's mental status. Related Data Home Medications Medication Instructions Recorded Confirmed clozapine 100 mg tablet 200 mg PO BEDTIME 11/27/20 01/28/23 fluoxetine 20 mg capsule 40 mg PO DAILY 11/27/20 01/28/23 clozapine 25 mg tablet 50 mg PO BID 08/13/21 01/28/23 lorazepam 0.5 mg tablet 0.5 mg PO BEDTIME 10/19/21 01/28/23 polyethylene glycol 3350 17 17 g PO DAILY PRN Constipation 10/19/21 01/28/23 gram/dose oral powder ascorbic acid (vitamin C) 500 mg 500 mg PO DAILY 01/28/23 01/28/23 chewable tablet (Vitamin C) desmopressin 0.1 mg tablet 0.1 mg PO BID 01/28/23 01/28/23 ferrous sulfate 300 mg (60 mg 300 mg PO DAILY 01/28/23 01/28/23 iron)/5 mL oral liquid levothyroxine 25 mcg tablet 25 mcg PO DAILY@0600 01/28/23 01/28/23 omeprazole 20 mg capsule,delayed 20 mg PO BID@0630,1630 01/28/23 01/28/23 release zinc oxide 12.8 % topical ointment 1 appl topical DAILY 01/28/23 01/28/23 (Triple Paste) Previous Rx's Medication Instructions Recorded pull ups small #100 ea 06/05/20 right AFO #1 ea 11/24/21 ondansetron HCl 8 mg tablet 8 mg PO BID PRN nausea and 06/11/22 vomiting #20 tabs compressor, for nebulizer #1 ea 11/27/22 sennosides 8.6 mg capsule (senna) 17.2 mg (2 x 8.6 mg) PO BEDTIME 12/01/22 #60 caps linaclotide 290 mcg capsule 290 mcg PO DAILY #30 caps 12/04/22 (Linzess) blood pressure monitor (Blood #1 ea 12/16/22 Pressure Kit) Allergies Allergy/AdvReac Type Severity Reaction Status Date / Time clindamycin Allergy Unknown Unknown Verified 12/16/22 10:43 Sulfa (Sulfonamide Allergy Unknown UNKNOWN Verified 12/16/22 10:43 Antibiotics) [SULFA(SULFONAMIDE ANTIBIOTICS)] sulfamethoxazole Allergy Unknown Unknown Verified 12/16/22 10:43 [From Bactrim] trimethoprim [From Bactrim] Allergy Unknown Unknown Verified 12/16/22 10:43 Review of Systems 2 Review of Systems: Yes Unobtainable due to mental status PMFSH Past Medical History Attestation statement: The following information was validated with the patient. 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 Paraparesis Metabolic encephalopathy COVID-19 Adult failure to thrive MVP (mitral valve prolapse) Mentally challenged Anxiety GERD (gastroesophageal reflux disease) Impaired glucose tolerance Tracheomalacia Schizophrenia Tubular adenoma of colon COPD (chronic obstructive pulmonary disease) Pneumonia Anemia Hypothyroid Depression Asthma Oropharyngeal dysphagia Surgical History History of bronchoscopy History of colonoscopy S/P tracheoplasty History of esophagogastroduodenoscopy (EGD) Family History Family History Family/Other Unknown family medical history Father Hypertension Mother Unknown family medical history Brother No problems noted. Sister No problems noted. Social History Social History Household Members: Other Household Members Other:: Resides in [facility] Housing: Other Housing Other:: sn[facility] Are you a primary direct care professional to a significant other at home: No Unable to assess alcohol history related to: Unable to respond and Unknown Alcohol intake: never Comment: 1:1 sitter Patient Tobacco Use Status: Never used Tobacco Smoked in Last 30 Days: No e-Cigarette/Vaping Use: Never Used Second Hand Smoke Exposure: No Use of substances other than those prescribed or required for medical reasons: No Advance Directives: Yes Advance Directives on File: Yes Advance Directives Date on File: 11/28/20 service: No Current occupational status: disabled Cognitive needs: Yes Hearing needs: No Vision needs: No Physical Exam ED Vital Signs: Vital Signs - 24 hr 01/28/23 10:25 01/28/23 12:34 Temperature 100.9 F H 99.5 F Pulse Rate 98 90 Respiratory Rate 18 20 Blood Pressure 136/70 142/86 H Pulse Oximetry 97 97 Oxygen Delivery Method Room Air Room Air BMI result Body Mass Index 19.9 febrile and tachycardic Appearance: Awake. Moving all extremities. Not answering questions appropriately. Head: Normocephalic, atraumatic, no step-offs or deformities Eyes: Pupils equal, round and reactive to light.? ENT: Pharynx normal.? Neck: Normal inspection.? Neck supple.? CVS: Normal heart rate and rhythm.? Pulses normal.? Respiratory: No respiratory distress.? Breath sounds normal.? Abdomen: Soft and nontender.? Skin: Skin warm and dry.? Normal skin color.? Normal skin turgor.? Extremities: No lower extremity edema.? No calf ttp. Global weakness Neuro: Patient moving all extremities, not answering questions appropriately. Unable to obtain an accurate neurological assessment Course Reevaluation(s) Reevaluation #1: Sepsis alert paged overhead. Time: 10:51 Reevaluation #2: CBC with leukocytosis and left shift. Chemistry with no acute findings requiring intervention. Normal lactic acid. I did give a 30 cc/kilos bolus as well as ceftriaxone for coverage for UTI and in fact patient's urine grossly infected. Patient with altered mental status infected urine meeting SIRS criteria will admit to the hospitalist S. Head CT pending at time of admission Time: 13:29 Medications Administered Discontinued Medications Generic Name Dose Route Start Last Admin Trade Name Freq PRN Reason Stop Dose Admin Acetaminophen 650 mg 01/28/23 10:50 01/28/23 11:22 Acetaminophen Supp 650 Mg Supp.Rect MA 01/28/23 10:51 650 mg ONCE ONE Administration Ceftriaxone Sodium 1 gm/ 50 mls @ 100 mls/hr 01/28/23 10:46 01/28/23 12:06 Sodium Chloride IV 01/28/23 11:15 Infused ONCE ONE Infusion Sodium Chloride 1,578 mls @ 1,578 mls/hr 01/28/23 10:46 01/28/23 12:34 Ns 30 ml/kg infuse over 1 hr (1578 ml) 01/28/23 11:45 Infused IV Infusion .Q1H STA Medical Decision Making Medical Decision Making [facility] Narrative: 1048 67-year-old male presents with altered mental status from longterm facility concerned for UTI Physical exam patient moving all extremities, not responding to my questions, appears confused. No other acute findings. Patient is however noted to be slightly tachycardic on initial vitals and febrile. Was not tachycardic on my exam History and physical exam concerning for possible UTI versus electrolyte abnormalities. Unlikely pneumonia, ACS, intracranial hemorrhage, stroke. Plan at this time labs, imaging, blood cultures, lactic will cover with ceftriaxone and a 30 cc/kilos bolus of fluids. Differential Diagnosis Differential Diagnoses: The differential diagnosis associated with the presentation includes History and physical exam concerning for possible UTI versus electrolyte abnormalities. Unlikely pneumonia, ACS, intracranial hemorrhage, stroke. Admission/Observation Consideration of admission/observation: Escalation of care including admission/observation considered Lab Data [facility] Lab Attestation statement: I reviewed the patient's lab results. 01/28/23 11:08 01/28/23 11:09 Labs: Lab Results 01/28/23 01/28/23 01/28/23 Range/Units 11:08 11:09 13:00 WBC 11.9 H (4.8-10.8) X10*3/uL RBC 3.95 L (4.60-5.80) X10*6/uL Hgb 12.0 L (14.0-18.0) g/dl Hct 37.2 L (42.0-52.0) % MCV 94.2 (80.0-98.0) fL MCH 30.4 (27.0-33.0) pg MCHC 32.3 (31.0-36.0) g/dl RDW 13.7 (11.0-16.0) % Plt Count 291 (160-400) X10*3/uL MPV 10.1 (9.4-12.4) fL Immature Gran % (Auto) 0.3 (0.0-0.4) % Neut % (Auto) 88.0 H (45-73) % Lymph % (Auto) 6.1 L (20-40) % [place] % (Auto) 4.5 (2-11) % Eos % (Auto) 0.8 (0-4) % Baso % (Auto) 0.3 (0-2) % Lymph # (Auto) 0.7 L (1.2-4.9) X10*3/uL [place] # (Auto) 0.5 (0.1-1.2) X10*3/uL Eos # (Auto) 0.1 (0.0-0.4) X10*3/uL Baso # (Auto) 0.0 (0.0-0.2) X10*3/uL Abs Immat Gran (auto) 0.03 (0.00-0.03) X10*3/uL Absolute Neuts (auto) 10.5 H (2.0-8.3) x10*3/uL Absolute Nucleated RBC 0.000 (0.0-0.012) X10*3/uL Nucleated RBC % (auto) 0.0 (0.0-0.2) /100WBC Sodium 148 H (135-145) mmol/L Potassium 4.2 (3.3-5.1) mmol/L Chloride 109 H (96-108) mmol/L Carbon Dioxide 28 (22-29) mmol/L Anion Gap 15 (12-20) BUN 26 H (9-16) mg/dL Creatinine 0.90 (0.5-1.4) mg/dL Estim Creat Clear Calc 58.4 Estimated GFR > 60 Random Glucose 130 H (60-115) mg/dL Lactic Acid 1.6 (0.5-2.0) mmol/L Calcium 10.7 H D (8.4-10.2) mg/dL Magnesium 2.2 (1.6-2.6) mg/dL Total Bilirubin 0.5 (0.0-1.0) mg/dL AST 18 (5-37) U/L ALT 14 (0-40) U/L Alkaline Phosphatase 72 (39-117) U/L Total Protein 7.5 (6.5-8.0) g/dL Albumin 4.0 (3.5-5.0) g/dL Urine Color Yellow Urine Appearance Turbid Urine pH 8.5 (5.0-9.0) Ur Specific [place] 1.020 (1.005-1.025) Urine Protein Negative (Neg-Trace) mg/dL Urine Glucose (UA) Negative (Negative) mg/dL Urine Ketones Trace (Negative) mg/dL Urine Blood Negative (Negative) Urine Nitrite Positive H (Negative) Ur Leukocyte Esterase Small (1+) H (Negative) Urine RBC 0-2 (0-2) /HPF Urine WBC 6-10 H (0-5) /HPF Ur Squamous Epith Cells 0-2 (0-2) /HPF Urine Bacteria 3+ (None Seen) Hyaline Casts 0-2 (0-2) /LPF Independent Interpretation I performed an independent interpretation of an: CT Scan Radiology Impression Discussion of test interpretation with radiology: I have reviewed the radiologist's reading. External Record Review External record reviewed: Inpatient record, Office record, Outpatient record, Prior outpatient labs, Prior outpatient radiology, Primary care record and Outside ED record Chronic Conditions Patient?s care impacted by: Other (Hypothyroidism, urinary incontinence, schizophrenia, hypoxia, BPH) Social Determinants Patient?s care significantly limited by Social Determinants of Health including: Inadequate housing, Problems related to primary support group, Unemployment, Problems related to employment and Other Social Determinant of Health Critical Care Time Critical Care Time Critical Care Time: Yes Total Critical Care Time: 45 Attestation: I attest to this time spent taking care of the patient, obtaining history, physical, reviewing labs, imaging, speaking to my attending Discharge Plan Discharge Clinical Impression: Acute UTI, Altered mental status Patient Disposition: Admitted As Inpatient Prescriptions: No Action (DME) right AFO See Rx Instructions .Route .MEDSUPPLY Qty: 1 0RF Rx Instructions: As directed ondansetron HCl 8 mg tablet 8 mg PO BID PRN (Reason: nausea and vomiting) Qty: 20 0RF senna 8.6 mg capsule 17.2 mg PO BEDTIME Qty: 60 6RF Linzess 290 mcg capsule 290 mcg PO DAILY Qty: 30 3RF fluoxetine 20 mg capsule 40 mg PO DAILY lorazepam 0.5 mg tablet 0.5 mg PO BEDTIME polyethylene glycol 3350 17 gram/dose powder 17 g PO DAILY PRN (Reason: Constipation) ferrous sulfate 300 mg (60 mg iron)/5 mL Liquid 300 mg PO DAILY ascorbic acid (vitamin C) [Vitamin C] 500 mg Tablet,Chewable 500 mg PO DAILY desmopressin 0.1 mg tablet 0.1 mg PO BID levothyroxine 25 mcg tablet 25 mcg PO DAILY@0600 Rx Instructions: Crush the pill omeprazole 20 mg capsule,delayed release(DR/EC) 20 mg PO BID@0630,1630 Triple Paste 12.8 % ointment 1 appl topical DAILY Protocol: Apply to: Apply to: use with dressing chnage (DME) pull ups small See Rx Instructions .Route .MEDSUPPLY Qty: 100 11RF Rx Instructions: As directed clozapine 100 mg tablet 200 mg PO BEDTIME clozapine 25 mg tablet 50 mg PO BID (DME) blood pressure monitor [Blood Pressure Kit] Kit See Rx Instructions .ROUTE .MEDSUPPLY Qty: 1 0RF Rx Instructions: As directed pediatric cuff (DME) compressor, for nebulizer Device See Rx Instructions .Route Qty: 1 0RF Rx Instructions: As directed
[2023-01-28 11:14] LABS: MANUAL DIFF FLAG NO
[2023-01-28 11:16] LABS: Basophils Percent Auto 0.3 % (0-2); Eosinophils Absolute Auto 0.1 X10*3/uL (0.0-0.4); Eosinophils Percent Auto 0.8 % (0-4); Hematocrit 37.2 % (42.0-52.0); Imm Gran Abs Auto 0.03 X10*3/uL (0.00-0.03); Imm Gran Pct Auto 0.3 % (0.0-0.4); Lymphocytes Absolute Auto 0.7 X10*3/uL (1.2-4.9); Lymphocytes Percent Auto 6.1 % (20-40); Mean Corpuscular HGB Conc 32.3 g/dl (31.0-36.0); Mean Corpuscular Hemoglobin 30.4 pg (27.0-33.0); Mean Corpuscular Volume 94.2 fL (80.0-98.0); Mean Platelet Volume 10.1 fL (9.4-12.4); Monocytes Absolute Auto 0.5 X10*3/uL (0.1-1.2); Monocytes Percent Auto 4.5 % (2-11); Neutrophils Absolute Auto 10.5 x10*3/uL (2.0-8.3); Platelet Count 291 X10*3/uL (160-400); Red Blood Count 3.95 X10*6/uL (4.60-5.80); Red Cell Distribution Width 13.7 % (11.0-16.0); White Blood Count 11.9 X10*3/uL (4.8-10.8)
[2023-01-28] MEDS: cefTRIAXone sodium 1 GM in 0.9 % Sodium Chloride 50 ML IV (11:18)
[2023-01-28] MEDS: Acetaminophen Supp 650 MG SUPP.RECT PR (11:22)
[2023-01-28 11:27] LABS: Lactic Acid 1.6 mmol/L (0.5-2.0)
[2023-01-28 11:32] LABS: Alanine Aminotransferase 14 U/L (0-40); Alkaline Phosphatase 72 U/L (39-117); Anion Gap 15 (12-20); Aspartate Amino Transferase 18 U/L (5-37); Bilirubin Total 0.5 mg/dL (0.0-1.0); Blood Urea Nitrogen 26 mg/dL (9-16); Calcium 10.7 mg/dL (8.4-10.2); Carbon Dioxide 28 mmol/L (22-29); Chloride 109 mmol/L (96-108); Creatinine Clr Calc Pharmacy 58.4; Estimated Glomerular Filt Rate > 60; Glucose Random 130 mg/dL (60-115); Magnesium 2.2 mg/dL (1.6-2.6); Potassium 4.2 mmol/L (3.3-5.1); Sodium 148 mmol/L (135-145); Total Protein 7.5 g/dL (6.5-8.0)
--- NOTE | 2023-01-28 11:42 | PC.NURSE ---
pt alert, though responsiveness is reduced from baseline. Pt will answer yes/no questions with prompting, though usually is much more talkative. Not oriented to place/situation. labs drawn, IV placed - 20g right AC. per PA, started ABX before urine sample is obtained - straight cath for sample pending. Urine from soiled clothes has strong odor. Pt febrile rectally -100.9, tylenol given per [place], [place]. changed over, application trainer on - NSR. other than temp, vitals stable. pt has bruise on left arm - [place] [facility], pt arrives to ED in sling.
--- NOTE | 2023-01-28 12:59 | PHA.MEDREC ---
Pharmacy Consult ? Medication Reconciliation Pharmacy has completed the medication reconciliation. Patient comes from [facility], called them to confirm last dosing of clozaril ([phone]). List faxed to pharmacy
--- NOTE | 2023-01-28 13:02 | PC.NURSE ---
urine sample obtained via straight cath.
[2023-01-28 13:12] LABS: Appearance Urine Turbid; Color Urine Yellow; Glucose Urine UA Negative (Negative); Leukocyte Esterase Urine Small (1+) (Negative); Nitrite Urine Positive (Negative); PH 8.5 (5.0-9.0); UMIC TRIGGER UACC YES; Urine Blood Negative (Negative); Urine Ketones Trace mg/dL (Negative); Urine Protein Negative (Neg-Trace)
[2023-01-28 13:15] LABS: Bacteria Urine 3+ (None Seen); Hyaline Casts Urine 0-2 /LPF (0-2); RBC Urine 0-2 /HPF (0-2); Squamous Epithelial Cell Urine 0-2 /HPF (0-2); UACC Culture Trigger YES
--- NOTE | 2023-01-28 16:07 | PM.IMHP ---
History of Present Illness Date of Service: 01/28/23 Chief Complaint: AMS 67yo M resident of detention with PMHx of hypothyroidism, chronic constipation, GERD, and schizoaffective disorder. Sent to ER by detention staff as pt was not acting his normal self and urine was strong-smelling. Pt unable to answer simple questions at this point and as such history is per the ED physician. I attempted to call the detention but there was no response; I left a message. I also left a message with the pt's HCP/sister Itzel at the number listed in the chart. He was found to have fever to 100.9 with WBC 11.9, PMNs 88%. Slightly hypernatremic with Na 148. Urine with nitrituria and pyuria. He was given ceftriaxone IV. 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 Sister No problems noted. Surgical History History of bronchoscopy History of colonoscopy S/P tracheoplasty History of esophagogastroduodenoscopy (EGD) Social History Household Members: Other Household Members Other:: Resides in Nursing Home Housing: Other Housing Other:: detention Are you a primary resident care assistant to a significant other at home: No Unable to assess alcohol history related to: Unable to respond and Unknown Alcohol intake: never Comment: 1:1 sitter Patient Tobacco Use Status: Never used Tobacco Smoked in Last 30 Days: No e-Cigarette/Vaping Use: Never Used Second Hand Smoke Exposure: No Use of substances other than those prescribed or required for medical reasons: No Advance Directives: Yes Advance Directives on File: Yes Advance Directives Date on File: 11/28/20 service: No Current occupational status: disabled Cognitive needs: Yes Hearing needs: No Vision needs: No Meds Allergies Allergy/AdvReac Type Severity Reaction Status Date / Time clindamycin Allergy Unknown Unknown Verified 12/16/22 10:43 Sulfa (Sulfonamide Allergy Unknown UNKNOWN Verified 12/16/22 10:43 Antibiotics) [SULFA(SULFONAMIDE ANTIBIOTICS)] sulfamethoxazole Allergy Unknown Unknown Verified 12/16/22 10:43 [From Bactrim] trimethoprim [From Bactrim] Allergy Unknown Unknown Verified 12/16/22 10:43 Active Medications: Current Medications Ascorbic Acid (Ascorbic Acid 500 Mg Tablet) 500 mg PO DAILY LEN Clozapine (Clozapine 25 Mg Tablet) 50 mg PO BID LEN Clozapine (Clozapine 100 Mg Tablet) 200 mg PO BEDTIME LEN Desmopressin Acetate (Desmopressin Acetate 0.2 Mg Tablet) 0.1 mg PO BID [facility] Ferrous Sulfate (Ferrous Sulfate 300 Mg/5 Ml Liquid) 300 mg PO DAILY [facility] Fluoxetine HCl (Fluoxetine Hcl 20 Mg Capsule) 40 mg PO DAILY [facility] Ceftriaxone Sodium 1 gm/ (Sodium Chloride) 50 mls @ 100 mls/hr IV Q24H LEN Levothyroxine Sodium (Levothyroxine Sodium 25 Mcg Tablet) 25 mcg PO DAILY@0600 [facility] Lorazepam (Lorazepam 0.5 Mg Tablet) 0.5 mg PO BEDTIME [facility] Non-Formulary Medication (Linaclotide [Linzess]) 290 mcg PO DAILY [facility] Omeprazole (Omeprazole 20 Mg Capsule.) 20 mg PO BID@0630,1630 [facility] Polyethylene Glycol (Polyethylene Glycol 3350 17 Gm Powd.Pack) 17 gm PO DAILY PRN PRN Reason: Constipation Senna (Sennosides 8.6 Mg Tablet) 17.2 mg PO BEDTIME [facility] Home Medications Medication Instructions Recorded Confirmed Last Taken Type clozapine 100 mg tablet 200 mg PO BEDTIME 11/27/20 01/28/23 01/27/23 History fluoxetine 20 mg capsule 40 mg PO DAILY 11/27/20 01/28/23 06/25/22 History clozapine 25 mg tablet 50 mg PO BID 08/13/21 01/28/23 01/28/23 History lorazepam 0.5 mg tablet 0.5 mg PO BEDTIME 10/19/21 01/28/23 Unknown History polyethylene glycol 3350 17 17 g PO DAILY PRN Constipation 10/19/21 01/28/23 Unknown History gram/dose oral powder ascorbic acid (vitamin C) 500 mg 500 mg PO DAILY 01/28/23 01/28/23 Unknown History chewable tablet (Vitamin C) desmopressin 0.1 mg tablet 0.1 mg PO BID 01/28/23 01/28/23 Unknown History ferrous sulfate 300 mg (60 mg 300 mg PO DAILY 01/28/23 01/28/23 Unknown History iron)/5 mL oral liquid levothyroxine 25 mcg tablet 25 mcg PO DAILY@0600 01/28/23 01/28/23 Unknown History omeprazole 20 mg capsule,delayed 20 mg PO BID@0630,1630 01/28/23 01/28/23 Unknown History release zinc oxide 12.8 % topical ointment 1 appl topical DAILY 01/28/23 01/28/23 Unknown History (Triple Paste) Physical Exam Vital Signs and Narrative: Vital Signs: Last Vital Signs Temp 99.5 F 01/28/23 12:34 Pulse 90 01/28/23 12:34 Resp 20 01/28/23 12:34 BP 142/86 H 01/28/23 12:34 Pulse Ox 97 01/28/23 12:34 O2 Del Method Room Air 01/28/23 12:34 BMI result Body Mass Index 19.9 Gen: intermittently awake, marked tardive dyskinesia HEENT: sclera anicteric, moist mucus membranes Neck: supple Lungs: clear to auscultation bilaterally Heart: regular rate and rhythm, no murmurs Abd: soft, non-tender, non-distended Ext: no edema Skin: warm/well-perfused Neuro: intermittently alert but not following commands Psych: impaired insight Results Labs 01/28/23 11:08 01/28/23 11:09 Labs: Laboratory Results - last 24 hr 01/28/23 01/28/23 01/28/23 11:08 11:09 13:00 MCV 94.2 MCH 30.4 MCHC 32.3 RDW 13.7 Plt Count 291 MPV 10.1 Immature Gran % (Auto) 0.3 Neut % (Auto) 88.0 H Lymph % (Auto) 6.1 L [place] % (Auto) 4.5 Eos % (Auto) 0.8 Baso % (Auto) 0.3 Lymph # (Auto) 0.7 L [place] # (Auto) 0.5 Eos # (Auto) 0.1 Baso # (Auto) 0.0 Abs Immat Gran (auto) 0.03 Absolute Neuts (auto) 10.5 H Absolute Nucleated RBC 0.000 Nucleated RBC % (auto) 0.0 Anion Gap 15 Estim Creat Clear Calc 58.4 Estimated GFR > 60 Random Glucose 130 H Lactic Acid 1.6 Calcium 10.7 H D Magnesium 2.2 Total Bilirubin 0.5 AST 18 ALT 14 Alkaline Phosphatase 72 Total Protein 7.5 Albumin 4.0 Urine Color Yellow Urine Appearance Turbid Urine pH 8.5 Ur Specific [place] 1.020 Urine Protein Negative Urine Glucose (UA) Negative Urine Ketones Trace Urine Blood Negative Urine Nitrite Positive H Ur Leukocyte Esterase Small (1+) H Urine RBC 0-2 Urine WBC 6-10 H Ur Squamous Epith Cells 0-2 Urine Bacteria 3+ Hyaline Casts 0-2 Imaging Radiologist's Impressions: Impressions Head CT 01/28/23 11:57 IMPRESSION: 1. No acute intracranial process seen. 2. Age-related cerebral volume loss. Assessment and Plan (1) Acute UTI: Status: Acute Plan 67yo M resident of detention with PMHx of hypothyroidism, chronic constipation, GERD, and schizoaffective disorder; sent in with altered mental status and diagnosed with UTI. UTI - admit to M/S, give ceftriaxone IV, follow BCx/UCx encephalopathy due to infection - NPO, give maintenance fluids, [employer] eval once more awake hyperNa - give hypotonic maintenance fluid, recheck BMP in AM schizoaffective disorder - lorazepam, fluoxetine, clozapine hypothyroidism - continue LT4 chronic constipation - bowel regimen VTE ppx - LMWH dispo - eventual return to detention code status - full I anticipate that the patient will stay at least 2 midnights as an inpatient in the hospital due to the above reasons. It is neither reasonable nor safe to care for them in a less acute setting. Quality Stroke Does the patient have a stroke diagnosis?: No VTE Prior VTE?: No VTE Risk Level:: Medical - moderate - high VTE Device Contraindication: N/A - Device Ordered VTE Drug Contraindication: N/A - Med Ordered
[2023-01-28] MEDS: Dextrose 5 % and 0.45 % NaCl 1,000 ML 80 ML IVCONT (19:32)
[2023-01-28] MEDS: Enoxaparin Sodium 40 MG/0.4 ML SYRINGE SUBCUT (19:34)
--- NOTE | 2023-01-28 23:19 | PC.NURSE ---
left arm sling on,large bruise present on left upper arm
[2023-01-29 06:23] LABS: Hematocrit 31.9 % (42.0-52.0); Hemoglobin 10.5 g/dl (14.0-18.0); Mean Corpuscular HGB Conc 32.9 g/dl (31.0-36.0); Mean Corpuscular Hemoglobin 30.6 pg (27.0-33.0); Mean Platelet Volume 10.4 fL (9.4-12.4); Platelet Count 249 X10*3/uL (160-400); Red Blood Count 3.43 X10*6/uL (4.60-5.80); Red Cell Distribution Width 13.9 % (11.0-16.0); White Blood Count 6.3 X10*3/uL (4.8-10.8)
[2023-01-29 06:34] LABS: Anion Gap 11 (12-20); Blood Urea Nitrogen 20 mg/dL (9-16); Calcium 9.1 mg/dL (8.4-10.2); Carbon Dioxide 24 mmol/L (22-29); Chloride 111 mmol/L (96-108); Estimated Glomerular Filt Rate > 60; Glucose Random 123 mg/dL (60-115); Potassium 3.4 mmol/L (3.3-5.1); Sodium 143 mmol/L (135-145)
[2023-01-29 07:35] VITALS: BP 146/74; PULSE 80; RESP 18; TEMP 36.8; O2SAT 98
[2023-01-29 08:17] LABS: Immature Retic Fraction 11.4 % (2.3-13.4); Retic HGB Equivalent 32.4 pg (30.0-35.0); Reticulocyte Percent 1.6 % (0.5-1.8); Reticulocytes Absolute 0.055 X10*6/uL (0.026-0.095)
--- NOTE | 2023-01-29 08:32 | PM.CNOR ---
History of Present Illness HPI Consult date: 01/29/23 Chief complaint: encephalopathy UTI Narrative: 59-year-old male admitted to the medical service due to UTI, confusion and hyperNa. On 01/23 he was seen in the ED s/p fall and was found to have an Acute, comminuted, mildly impacted left humeral neck fracture on xrays. Orthopedics was consulted for recommendations. On presentation this morning, patient is resting in bed, appears confused. Does not answer questions. He is in a sling. 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 Sister No problems noted. Surgical History Surgical History History of bronchoscopy History of colonoscopy S/P tracheoplasty History of esophagogastroduodenoscopy (EGD) Social History Social History Household Members: Unknown / Unable to assess Household Members Other:: Resides in Long Term Housing: Other Housing Other:: prison Are you a primary healthcare analyst to a significant other at home: No Unable to assess alcohol history related to: Unable to respond and Unknown Alcohol intake: never Comment: 1:1 sitter Patient Tobacco Use Status: Never used Tobacco e-Cigarette/Vaping Use: Never Used Second Hand Smoke Exposure: No Advance Directives Date on File: 11/28/20 service: No Current occupational status: disabled Cognitive needs: Yes Hearing needs: No Vision needs: No Meds Allergies Allergy/AdvReac Type Severity Reaction Status Date / Time clindamycin Allergy Unknown Unknown Verified 12/16/22 10:43 Sulfa (Sulfonamide Allergy Unknown UNKNOWN Verified 12/16/22 10:43 Antibiotics) [SULFA(SULFONAMIDE ANTIBIOTICS)] sulfamethoxazole Allergy Unknown Unknown Verified 12/16/22 10:43 [From Bactrim] trimethoprim [From Bactrim] Allergy Unknown Unknown Verified 12/16/22 10:43 Active Medications: Current Medications Acetaminophen (Acetaminophen Supp 650 Mg Supp.Rect) 650 mg SD Q6H PRN PRN Reason: Pain, Mild (Pain Scale 1-3) Ascorbic Acid (Ascorbic Acid 500 Mg Tablet) 500 mg PO DAILY [facility] Last Admin: 01/29/23 08:26 Dose: Not Given Clozapine (Clozapine 25 Mg Tablet) 50 mg PO BID [facility] Last Admin: 01/29/23 08:27 Dose: Not Given Clozapine (Clozapine 100 Mg Tablet) 200 mg PO BEDTIME [facility] Last Admin: 01/28/23 20:52 Dose: Not Given Desmopressin Acetate (Desmopressin Acetate 0.2 Mg Tablet) 0.1 mg PO BID [facility] Last Admin: 01/29/23 08:27 Dose: Not Given Enoxaparin Sodium (Enoxaparin Sodium 40 Mg/0.4 Ml Syringe) 40 mg SUBCUT Q24H [facility] Last Admin: 01/28/23 19:34 Dose: 40 mg Ferrous Sulfate (Ferrous Sulfate 300 Mg/5 Ml Liquid) 300 mg PO DAILY [facility] Last Admin: 01/29/23 08:27 Dose: Not Given Fluoxetine HCl (Fluoxetine Hcl 20 Mg Capsule) 40 mg PO DAILY [facility] Last Admin: 01/29/23 08:27 Dose: Not Given Ceftriaxone Sodium 1 gm/ (Sodium Chloride) 50 mls @ 100 mls/hr IV Q24H [facility] Dextrose/Sodium Chloride (D51/2ns) 1,000 mls @ 80 mls/hr IVCONT .[id number] [facility] Last Admin: 01/29/23 05:05 Dose: Not Given Levothyroxine Sodium (Levothyroxine Sodium 25 Mcg Tablet) 25 mcg PO DAILY@0600 [facility] Last Admin: 01/29/23 05:38 Dose: Not Given Lorazepam (Lorazepam 0.5 Mg Tablet) 0.5 mg PO BEDTIME [facility] Last Admin: 01/28/23 20:52 Dose: Not Given Non-Formulary Medication (Linaclotide [Linzess]) 290 mcg PO DAILY [facility] Omeprazole (Omeprazole 20 Mg Capsule.) 20 mg PO BID@0630,1630 [facility] Last Admin: 01/29/23 05:39 Dose: Not Given Ondansetron HCl (Ondansetron Hcl 4 Mg/2 Ml Vial) 4 mg IVPUSH Q8H PRN PRN Reason: Nausea and Vomiting Polyethylene Glycol (Polyethylene Glycol 3350 17 Gm Powd.Pack) 17 gm PO DAILY PRN PRN Reason: Constipation Senna (Sennosides 8.6 Mg Tablet) 17.2 mg PO BEDTIME [facility] Last Admin: 01/28/23 20:52 Dose: Not Given Sodium Chloride (0.9 % Sodium Chloride Flush 3 Ml Syringe) 3 ml IVFLUSH QSHIFT [facility] Last Admin: 01/29/23 08:26 Dose: Not Given Home Medications Medication Instructions Recorded Confirmed Last Taken Type clozapine 100 mg tablet 200 mg PO BEDTIME 11/27/20 01/28/23 01/27/23 History fluoxetine 20 mg capsule 40 mg PO DAILY 11/27/20 01/28/23 06/25/22 History clozapine 25 mg tablet 50 mg PO BID 08/13/21 01/28/23 01/28/23 History lorazepam 0.5 mg tablet 0.5 mg PO BEDTIME 10/19/21 01/28/23 Unknown History polyethylene glycol 3350 17 17 g PO DAILY PRN Constipation 10/19/21 01/28/23 Unknown History gram/dose oral powder ascorbic acid (vitamin C) 500 mg 500 mg PO DAILY 01/28/23 01/28/23 Unknown History chewable tablet (Vitamin C) desmopressin 0.1 mg tablet 0.1 mg PO BID 01/28/23 01/28/23 Unknown History ferrous sulfate 300 mg (60 mg 300 mg PO DAILY 01/28/23 01/28/23 Unknown History iron)/5 mL oral liquid levothyroxine 25 mcg tablet 25 mcg PO DAILY@0600 01/28/23 01/28/23 Unknown History omeprazole 20 mg capsule,delayed 20 mg PO BID@0630,1630 01/28/23 01/28/23 Unknown History release zinc oxide 12.8 % topical ointment 1 appl topical DAILY 01/28/23 01/28/23 Unknown History (Triple Paste) Physical Exam Vital Signs: Vital Signs: Last Vital Signs Temp 98.2 F 01/29/23 07:35 Pulse 80 01/29/23 07:35 Resp 18 01/29/23 07:35 BP 146/74 H 01/29/23 07:35 Pulse Ox 98 01/29/23 07:35 O2 Del Method Room Air 01/29/23 07:35 BMI result Body Mass Index 19.9 Const: General: healthy appearing, comfortable and no acute distress Extrem: Other: Left shoulder skin intact. There is some swelling and faint bruising over the proximal humerus. Arm is in a sling. Pulses present. Results Labs 01/29/23 05:56 01/29/23 05:56 Labs: Abnormal lab results 01/28/23 01/28/23 01/28/23 Range/Units 11:08 11:09 13:00 WBC 11.9 H (4.8-10.8) X10*3/uL RBC 3.95 L (4.60-5.80) X10*6/uL Hgb 12.0 L (14.0-18.0) g/dl Hct 37.2 L (42.0-52.0) % Neut % (Auto) 88.0 H (45-73) % Lymph % (Auto) 6.1 L (20-40) % Lymph # (Auto) 0.7 L (1.2-4.9) X10*3/uL Absolute Neuts (auto) 10.5 H (2.0-8.3) x10*3/uL Sodium 148 H (135-145) mmol/L Chloride 109 H (96-108) mmol/L Anion Gap (12-20) BUN 26 H (9-16) mg/dL Random Glucose 130 H (60-115) mg/dL Calcium 10.7 H D (8.4-10.2) mg/dL Urine Nitrite Positive H (Negative) Ur Leukocyte Esterase Small (1+) H (Negative) Urine WBC 6-10 H (0-5) /HPF 01/29/23 Range/Units 05:56 WBC (4.8-10.8) X10*3/uL RBC 3.43 L (4.60-5.80) X10*6/uL Hgb 10.5 L (14.0-18.0) g/dl Hct 31.9 L (42.0-52.0) % Neut % (Auto) (45-73) % Lymph % (Auto) (20-40) % Lymph # (Auto) (1.2-4.9) X10*3/uL Absolute Neuts (auto) (2.0-8.3) x10*3/uL Sodium (135-145) mmol/L Chloride 111 H (96-108) mmol/L Anion Gap 11 L (12-20) BUN 20 H (9-16) mg/dL Random Glucose 123 H (60-115) mg/dL Calcium (8.4-10.2) mg/dL Urine Nitrite (Negative) Ur Leukocyte Esterase (Negative) Urine WBC (0-5) /HPF H & H 01/28/23 01/29/23 Range/Units 11:08 05:56 Hgb 12.0 L 10.5 L (14.0-18.0) g/dl Hct 37.2 L 31.9 L (42.0-52.0) % All other labs normal. Assessment and Plan (1) Closed fracture of left proximal humerus: Status: Acute Plan sling-ok to remove for hygiene and elbow rom and pendulums -no surgical intervention -f/u outpatient ortho in 6 weeks for xrays Procedures Date of Service Date of Service: 01/29/23
[2023-01-29 08:33] LABS: Iron 42 mcg/dL (45-160); Lactate Dehydrogenase 179 U/L (118-273); Percent Iron Saturation 21 % (15-50); Total Iron Binding Capacity 201 mcg/dL (228-428); Unsaturated Iron Binding 159 ug/dL
[2023-01-29] MEDS: Dextrose 5 % and 0.45 % NaCl 1,000 ML 80 ML IVCONT ×2 (08:35→19:17)
[2023-01-29] MEDS: cefTRIAXone sodium 1 GM in 0.9 % Sodium Chloride 50 ML IV (08:35)
[2023-01-29 08:54] LABS: Ferritin 165 ng/mL (20-250)
--- NOTE | 2023-01-29 09:18 | MHC.CM.PN ---
Patient from [facility] [phone] CM spoke with Tiara, supervisor roving department, who states patient ambulates independently at baseline, but requires assistance with ADL's. Also reports puree diet with honey thick liquids - RN aware. Patient currently using sling to L arm for fx sustained on 01/23. No other equipment. PCP: Dr. Reeves HCP: [facility] [phone]. CM LM for HCP to inform of admission and verbally deliver IMM. Copy to be mailed. DP: [facility]. assisted staff can transport. CM requested staff fax dc orders/paperwork for MD to sign. CM will continue to follow.
--- NOTE | 2023-01-29 10:57 | P.PNIM_ITS ---
Subjective Subjective Date of Service: 01/29/23 Interval History: still not consistently awake, not following commands consistently Review of Systems Review of Systems: Yes Unobtainable due to mental status Physical Exam 2 Vital Signs: Vital Signs: Last Vital Signs Temp 98.2 F 01/29/23 07:35 Pulse 80 01/29/23 07:35 Resp 18 01/29/23 07:35 BP 146/74 H 01/29/23 07:35 Pulse Ox 98 01/29/23 07:35 O2 Del Method Room Air 01/29/23 07:35 BMI result Body Mass Index 19.9 Gen: intermittently awake, marked tardive dyskinesia HEENT: sclera anicteric, moist mucus membranes Neck: supple Lungs: clear to auscultation bilaterally Heart: regular rate and rhythm, no murmurs Abd: soft, non-tender, non-distended Ext: no edema, LUE in sling, distally N/V intact Skin: warm/well-perfused Neuro: intermittently alert but not following commands Psych: impaired insight Objective Data Active Medications Acetaminophen (Acetaminophen Supp 650 Mg Supp.Rect) 650 mg [place] Q6H PRN PRN Reason: Pain, Mild (Pain Scale 1-3) Ascorbic Acid (Ascorbic Acid 500 Mg Tablet) 500 mg PO DAILY [facility] Last Admin: 01/29/23 08:26 Dose: Not Given Documented By: SYLVIA Non-Admin Reason: NPO Clozapine (Clozapine 25 Mg Tablet) 50 mg PO BID [facility] Last Admin: 01/29/23 08:27 Dose: Not Given Documented By: SYLVIA Non-Admin Reason: NPO Clozapine (Clozapine 100 Mg Tablet) 200 mg PO BEDTIME [facility] Last Admin: 01/28/23 20:52 Dose: Not Given Documented By: YOMI Non-Admin Reason: NPO Desmopressin Acetate (Desmopressin Acetate 0.2 Mg Tablet) 0.1 mg PO BID [facility] Last Admin: 01/29/23 08:27 Dose: Not Given Documented By: SYLVIA Non-Admin Reason: NPO Enoxaparin Sodium (Enoxaparin Sodium 40 Mg/0.4 Ml Syringe) 40 mg SUBCUT Q24H [facility] Last Admin: 01/28/23 19:34 Dose: 40 mg Documented By: YOMI Ferrous Sulfate (Ferrous Sulfate 300 Mg/5 Ml Liquid) 300 mg PO DAILY [facility] Last Admin: 01/29/23 08:27 Dose: Not Given Documented By: SYLVIA Non-Admin Reason: NPO Fluoxetine HCl (Fluoxetine Hcl 20 Mg Capsule) 40 mg PO DAILY [facility] Last Admin: 01/29/23 08:27 Dose: Not Given Documented By: SYLVIA Non-Admin Reason: NPO Ceftriaxone Sodium 1 gm/ (Sodium Chloride) 50 mls @ 100 mls/hr IV Q24H [facility] Last Infusion: 01/29/23 09:34 Dose: Infused Documented By: SYLVIA Dextrose/Sodium Chloride (D51/2ns) 1,000 mls @ 80 mls/hr IVCONT .[id number] [facility] Last Admin: 01/29/23 08:35 Dose: 80 mls/hr Documented By: SYLVIA Levothyroxine Sodium (Levothyroxine Sodium 25 Mcg Tablet) 25 mcg PO DAILY@0600 [facility] Last Admin: 01/29/23 05:38 Dose: Not Given Documented By: TIP Non-Admin Reason: NPO Lorazepam (Lorazepam 0.5 Mg Tablet) 0.5 mg PO BEDTIME [facility] Last Admin: 01/28/23 20:52 Dose: Not Given Documented By: YOMI Non-Admin Reason: NPO Non-Formulary Medication (Linaclotide [Linzess]) 290 mcg PO DAILY [facility] Omeprazole (Omeprazole 20 Mg Capsule.Dr) 20 mg PO BID@0630,1630 [facility] Last Admin: 01/29/23 05:39 Dose: Not Given Documented By: TIP Non-Admin Reason: NPO Ondansetron HCl (Ondansetron Hcl 4 Mg/2 Ml Vial) 4 mg IVPUSH Q8H PRN PRN Reason: Nausea and Vomiting Polyethylene Glycol (Polyethylene Glycol 3350 17 Gm Powd.Pack) 17 gm PO DAILY PRN PRN Reason: Constipation Senna (Sennosides 8.6 Mg Tablet) 17.2 mg PO BEDTIME [facility] Last Admin: 01/28/23 20:52 Dose: Not Given Documented By: YOMI Non-Admin Reason: NPO Sodium Chloride (0.9 % Sodium Chloride Flush 3 Ml Syringe) 3 ml IVFLUSH QSHIFT [facility] Last Admin: 01/29/23 08:26 Dose: Not Given Documented By: SYLVIA Non-Admin Reason: IV Running Labs 01/29/23 05:56 01/29/23 05:56 Labs: Laboratory Results - last 24 hr 01/28/23 01/28/23 01/28/23 11:08 11:09 13:00 MCV 94.2 MCH 30.4 MCHC 32.3 RDW 13.7 Plt Count 291 MPV 10.1 Immature Gran % (Auto) 0.3 Neut % (Auto) 88.0 H Lymph % (Auto) 6.1 L [place] % (Auto) 4.5 Eos % (Auto) 0.8 Baso % (Auto) 0.3 Lymph # (Auto) 0.7 L [place] # (Auto) 0.5 Eos # (Auto) 0.1 Baso # (Auto) 0.0 Abs Immat Gran (auto) 0.03 Absolute Neuts (auto) 10.5 H Absolute Nucleated RBC 0.000 Nucleated RBC % (auto) 0.0 Absolute Retic Percent Retic Immature Retic Fraction Retic Hgb Equivalent Anion Gap 15 Estim Creat Clear Calc 58.4 Estimated GFR > 60 Random Glucose 130 H Lactic Acid 1.6 Calcium 10.7 H D Magnesium 2.2 Iron TIBC % Saturation Unsat Iron Binding Ferritin Total Bilirubin 0.5 AST 18 ALT 14 Alkaline Phosphatase 72 Lactate Dehydrogenase Total Protein 7.5 Albumin 4.0 Urine Color Yellow Urine Appearance Turbid Urine pH 8.5 Ur Specific [place] 1.020 Urine Protein Negative Urine Glucose (UA) Negative Urine Ketones Trace Urine Blood Negative Urine Nitrite Positive H Ur Leukocyte Esterase Small (1+) H Urine RBC 0-2 Urine WBC 6-10 H Ur Squamous Epith Cells 0-2 Urine Bacteria 3+ Hyaline Casts 0-2 01/29/23 05:56 MCV 93.0 MCH 30.6 MCHC 32.9 RDW 13.9 Plt Count 249 MPV 10.4 Immature Gran % (Auto) Neut % (Auto) Lymph % (Auto) [place] % (Auto) Eos % (Auto) Baso % (Auto) Lymph # (Auto) [place] # (Auto) Eos # (Auto) Baso # (Auto) Abs Immat Gran (auto) Absolute Neuts (auto) Absolute Nucleated RBC 0.000 Nucleated RBC % (auto) 0.0 Absolute Retic 0.055 Percent Retic 1.6 Immature Retic Fraction 11.4 Retic Hgb Equivalent 32.4 Anion Gap 11 L Estim Creat Clear Calc 72.0 Estimated GFR > 60 Random Glucose 123 H Lactic Acid Calcium 9.1 D Magnesium Iron 42 L TIBC 201 L % Saturation 21 Unsat Iron Binding 159 Ferritin 165 Total Bilirubin AST ALT Alkaline Phosphatase Lactate Dehydrogenase 179 Total Protein Albumin Urine Color Urine Appearance Urine pH Ur Specific [place] Urine Protein Urine Glucose (UA) Urine Ketones Urine Blood Urine Nitrite Ur Leukocyte Esterase Urine RBC Urine WBC Ur Squamous Epith Cells Urine Bacteria Hyaline Casts Impressions Head CT 01/28/23 11:57 IMPRESSION: 1. No acute intracranial process seen. 2. Age-related cerebral volume loss. Assessment and Plan (1) Closed fracture of left proximal humerus: Status: Acute (2) Altered mental status: Status: Acute (3) Acute UTI: Status: Acute Plan d2 67yo M resident of long term with PMHx of hypothyroidism, chronic constipation, GERD, and schizoaffective disorder; sent in with altered mental status and diagnosed with UTI. 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 Quality Stroke Does the patient have a stroke diagnosis?: No VTE Prior VTE?: No VTE Risk Level:: Medical - moderate - high VTE Device Contraindication: N/A - Device Ordered VTE Drug Contraindication: N/A - Med Ordered
[2023-01-29 13:39] VITALS: BMI 19.9
--- NOTE | 2023-01-29 13:51 | MHC.CLN ---
NUTRITION CONSULT FOR NPO/POOR PO. CURRENTLY NPO. DIRECTOR SOFTWARE TO EVAL WHEN PATIENT MORE ALERT. UNDERWEIGHT WITH 89% IBW. DOES NOT QUALIFY MALNOURISHED. SHOWS SIGNIFICANT WEIGHT GAIN X 7 MONTHS, +17.9%. DIET AT [facility] WITH HONEY THICK LIQUIDS. FOLLOW FOR DIET ADVANCEMENT AND INTAKE. SEE CLINICAL NUTRITION ASSESSMENT 01/29/23.
[2023-01-29 15:24] VITALS: BP 125/67; PULSE 78; RESP 18; TEMP 36.9; O2SAT 97
[2023-01-29] MEDS: Enoxaparin Sodium 40 MG/0.4 ML SYRINGE SUBCUT (15:53)
[2023-01-29 23:51] VITALS: BP 102/65; PULSE 68; RESP 18; TEMP 36.8; O2SAT 96
[2023-01-30] MEDS: Dextrose 5 % and 0.45 % NaCl 1,000 ML 80 ML IVCONT (06:04)
[2023-01-30 06:54] LABS: Anion Gap 13 (12-20); Blood Urea Nitrogen 18 mg/dL (9-16); Calcium 8.9 mg/dL (8.4-10.2); Carbon Dioxide 23 mmol/L (22-29); Chloride 110 mmol/L (96-108); Estimated Glomerular Filt Rate > 60; Glucose Random 119 mg/dL (60-115); Potassium 3.6 mmol/L (3.3-5.1); Sodium 142 mmol/L (135-145)
[2023-01-30 07:12] VITALS: BP 103/67; PULSE 68; RESP 20; TEMP 36.5; O2SAT 96
[2023-01-30 07:29] LABS: Folate 12.7 ng/mL (> or = 4.0); Vitamin B12 678 pg/mL (200-900)
[2023-01-30] MEDS: Ascorbic Acid 500 MG TABLET PO (09:01)
[2023-01-30] MEDS: cloZAPine 25 MG TABLET 50 MG PO ×2 (09:01→20:10)
[2023-01-30] MEDS: FLUoxetine HCl 20 MG CAPSULE 40 MG PO (09:03)
[2023-01-30] MEDS: Ferrous Sulfate 300 MG/5 ML LIQUID PO (09:03)
[2023-01-30] MEDS: Desmopressin Acetate 0.2 MG TABLET 0.1 MG PO ×2 (09:03→20:08)
[2023-01-30] MEDS: Levothyroxine Sodium 25 MCG TABLET PO (09:09)
[2023-01-30] MEDS: 0.9 % Sodium Chloride Flush 3 ML SYRINGE IVFLUSH ×3 (09:09→20:10)
[2023-01-30] MEDS: cefTRIAXone sodium 1 GM in 0.9 % Sodium Chloride 50 ML IV (09:09)
--- NOTE | 2023-01-30 10:32 | HO.PM.IMPN ---
Subjective Subjective Date of Service: 01/30/23 Interval History: more awake c/o LUE pain but otherwise poor historian Review of Systems Review of Systems: Yes Unobtainable due to mental status Physical Exam Vital Signs: Vital Signs: Last Vital Signs Temp 97.7 F 01/30/23 07:12 Pulse 68 01/30/23 07:12 Resp 20 01/30/23 07:12 BP 103/67 01/30/23 07:12 Pulse Ox 96 01/30/23 07:12 O2 Del Method Room Air 01/30/23 07:12 BMI result Body Mass Index 19.9 Gen: NAD, ardive dyskinesia HEENT: sclera anicteric, moist mucus membranes Neck: supple Lungs: clear to auscultation bilaterally Heart: regular rate and rhythm, no murmurs Abd: soft, non-tender, non-distended Ext: no edema, LUE in sling, distally N/V intact Skin: warm/well-perfused Neuro: alert, unable to assess orientation Psych: impaired insight Objective Data Active Medications Acetaminophen (Acetaminophen Supp 650 Mg Supp.Rect) 650 mg [place] Q6H PRN PRN Reason: Pain, Mild (Pain Scale 1-3) Ascorbic Acid (Ascorbic Acid 500 Mg Tablet) 500 mg PO DAILY [facility] Last Admin: 01/30/23 09:01 Dose: 500 mg Documented By: HIRAL Clozapine (Clozapine 25 Mg Tablet) 50 mg PO BID [facility] Last Admin: 01/30/23 09:01 Dose: 50 mg Documented By: HIRAL Clozapine (Clozapine 100 Mg Tablet) 200 mg PO BEDTIME [facility] Last Admin: 01/29/23 21:33 Dose: Not Given Documented By: LUIS Non-Admin Reason: Patient Refused Desmopressin Acetate (Desmopressin Acetate 0.2 Mg Tablet) 0.1 mg PO BID [facility] Last Admin: 01/30/23 09:03 Dose: 0.1 mg Documented By: HIRAL Enoxaparin Sodium (Enoxaparin Sodium 40 Mg/0.4 Ml Syringe) 40 mg SUBCUT Q24H [facility] Last Admin: 01/29/23 15:53 Dose: 40 mg Documented By: SYLVIA Ferrous Sulfate (Ferrous Sulfate 300 Mg/5 Ml Liquid) 300 mg PO DAILY [facility] Last Admin: 01/30/23 09:03 Dose: 300 mg Documented By: HIRAL Fluoxetine HCl (Fluoxetine Hcl 20 Mg Capsule) 40 mg PO DAILY [facility] Last Admin: 01/30/23 09:03 Dose: 40 mg Documented By: HIRAL Ceftriaxone Sodium 1 gm/ (Sodium Chloride) 50 mls @ 100 mls/hr IV Q24H [facility] Last Infusion: 01/30/23 09:43 Dose: Infused Documented By: HIRAL Dextrose/Sodium Chloride (D51/2ns) 1,000 mls @ 80 mls/hr IVCONT .[id number] [facility] Last Admin: 01/30/23 06:04 Dose: 80 mls/hr Documented By: LUIS Levothyroxine Sodium (Levothyroxine Sodium 25 Mcg Tablet) 25 mcg PO DAILY@0600 [facility] Last Admin: 01/30/23 09:09 Dose: 25 mcg Documented By: HIRAL Lorazepam (Lorazepam 0.5 Mg Tablet) 0.5 mg PO BEDTIME [facility] Last Admin: 01/29/23 21:33 Dose: Not Given Documented By: LUIS Non-Admin Reason: Patient Refused Non-Formulary Medication (Linaclotide [Linzess]) 290 mcg PO DAILY [facility] Omeprazole (Omeprazole/Na Bicarb Oral Susp 20 Mg/10 Ml Ud Cup) 20 mg PO BID@0630,1630 [facility] Last Admin: 01/30/23 05:32 Dose: Not Given Documented By: LUIS Non-Admin Reason: Patient Refused Ondansetron HCl (Ondansetron Hcl 4 Mg/2 Ml Vial) 4 mg IVPUSH Q8H PRN PRN Reason: Nausea and Vomiting Polyethylene Glycol (Polyethylene Glycol 3350 17 Gm Powd.Pack) 17 gm PO DAILY PRN PRN Reason: Constipation Senna (Sennosides 8.6 Mg Tablet) 17.2 mg PO BEDTIME [facility] Last Admin: 01/29/23 21:33 Dose: Not Given Documented By: LUIS Non-Admin Reason: Patient Refused Sodium Chloride (0.9 % Sodium Chloride Flush 3 Ml Syringe) 3 ml IVFLUSH QSHIFT [facility] Last Admin: 01/30/23 09:09 Dose: 3 ml Documented By: HIRAL Labs 01/29/23 05:56 01/30/23 06:22 Labs: Laboratory Results - last 24 hr 01/30/23 06:22 Hold Purple Top SEE NOTE Anion Gap 13 Estim Creat Clear Calc 71.0 Estimated GFR > 60 Random Glucose 119 H Calcium 8.9 Vitamin B12 678 Folate 12.7 Urine culture, 01/28/23 Organism 1 Escherichia coli Quant > 100,000 cfu/mL ESBL Note: NOTE: Extended-Spectrum Beta-Lactamase enzyme present E coli M.I.C. RX --------- --- Ampicillin >=32 R Ceftriaxone 8 R Ertapenem <=0.12 S Gentamicin <=1 S Levofloxacin <=0.12 S Nitrofurantoin <=16 S Trimethoprim/Sulfamethoxazole <=20 S Microbiology Microbiology Results: Microbiology 01/28/23 Unknown Urine Culture - Final Urine clean catch - Urine gurrola top Escherichia coli 01/28/23 11:16 Blood Culture - Preliminary Blood - Venous No growth after 24 hours. 01/28/23 11:09 Blood Culture - Preliminary Blood - Venous No growth after 24 hours. Assessment and Plan (1) Closed fracture of left proximal humerus: Status: Acute (2) Altered mental status: Status: Acute (3) Acute UTI: Status: Acute Plan d3 67yo M resident of half-way with PMHx of hypothyroidism, chronic constipation, GERD, and schizoaffective disorder; sent in with altered mental status and diagnosed with UTI. UTI- E coli ESBL - has been on ceftriaxone since 01/28/23, will switch to levofloxacin x7d starting today [01/30/23] L humerus fx sustained 01/23/23 - Ortho consulted, nonoperative, OK to remove sling for ROM, f/u in clinic in 6 wk encephalopathy due to infection - resolving, d/c maintenance fluids history of aspiration - pureed solids + honey-thick liquids as per last [employer] consultation 11/19/22 anemia, normocytic iron deficiency - replete iron, check FOBT hyperNa - resolved schizoaffective disorder - lorazepam, fluoxetine, clozapine hypothyroidism - continue LT4 chronic constipation - bowel regimen VTE ppx - LMWH dispo - eventual return to half-way but may need care home care until can ambulate In my clinical judgment, the patient requires continued inpatient hospitalization for the following reasons: placement Total time managing care of this patient today: 35 minutes. Quality Stroke Does the patient have a stroke diagnosis?: No VTE Prior VTE?: No VTE Risk Level:: Medical - moderate - high VTE Device Contraindication: N/A - Device Ordered VTE Drug Contraindication: N/A - Med Ordered
[2023-01-30] MEDS: oxyCODONE HCl Immed Release 5 MG TABLET PO (10:41)
[2023-01-30] MEDS: levoFLOXacin/D5W 750 MG/150 ML PIGGYBACK 100 MG IV (11:49)
--- NOTE | 2023-01-30 14:23 | PC.NURSE ---
Patient walked with contact guard assist, to end of nursing station and back to room.
[2023-01-30 15:46] VITALS: BP 108/61; PULSE 70; RESP 18; TEMP 36.9; O2SAT 96
[2023-01-30] MEDS: Omeprazole/Na Bicarb Oral Susp 20 MG/10 ML UD Cup PO (16:10)
[2023-01-30] MEDS: Enoxaparin Sodium 40 MG/0.4 ML SYRINGE SUBCUT (16:10)
[2023-01-30 19:25] VITALS: BP 91/61; PULSE 68; RESP 18; TEMP 36.9; O2SAT 97
[2023-01-30] MEDS: cloZAPine 100 MG TABLET 200 MG PO (20:09)
[2023-01-30] MEDS: Sennosides 8.6 MG TABLET 17.2 MG PO (20:10)
[2023-01-30] MEDS: LORazepam 0.5 MG TABLET PO (20:10)
[2023-01-31 00:39] VITALS: BP 116/60; PULSE 69; RESP 18; TEMP 36.2; O2SAT 97
[2023-01-31] MEDS: Omeprazole/Na Bicarb Oral Susp 20 MG/10 ML UD Cup PO (06:07)
[2023-01-31] MEDS: Levothyroxine Sodium 25 MCG TABLET PO (06:07)
[2023-01-31 07:31] VITALS: BP 109/59; PULSE 76; RESP 18; TEMP 36.4; O2SAT 97
[2023-01-31 07:48] LABS: Hematocrit 30.9 % (42.0-52.0); Mean Corpuscular HGB Conc 32.4 g/dl (31.0-36.0); Mean Corpuscular Hemoglobin 30.5 pg (27.0-33.0); Mean Corpuscular Volume 94.2 fL (80.0-98.0); Mean Platelet Volume 10.7 fL (9.4-12.4); Platelet Count 239 X10*3/uL (160-400); Red Blood Count 3.28 X10*6/uL (4.60-5.80); Red Cell Distribution Width 13.3 % (11.0-16.0); White Blood Count 5.2 X10*3/uL (4.8-10.8)
[2023-01-31 07:59] LABS: Anion Gap 12 (12-20); Blood Urea Nitrogen 15 mg/dL (9-16); Calcium 9.2 mg/dL (8.4-10.2); Carbon Dioxide 25 mmol/L (22-29); Chloride 108 mmol/L (96-108); Creatinine Clr Calc Pharmacy 63.3; Estimated Glomerular Filt Rate > 60; Glucose Random 105 mg/dL (60-115); Potassium 3.6 mmol/L (3.3-5.1); Sodium 141 mmol/L (135-145)
[2023-01-31] MEDS: Ferrous Sulfate 300 MG/5 ML LIQUID PO (08:22)
[2023-01-31] MEDS: 0.9 % Sodium Chloride Flush 3 ML SYRINGE IVFLUSH (08:22)
[2023-01-31] MEDS: Ascorbic Acid 500 MG TABLET PO (08:22)
[2023-01-31] MEDS: Desmopressin Acetate 0.2 MG TABLET 0.1 MG PO (08:22)
[2023-01-31] MEDS: cloZAPine 25 MG TABLET 50 MG PO (08:23)
[2023-01-31] MEDS: FLUoxetine HCl 20 MG CAPSULE 40 MG PO (08:23)
[2023-01-31] MEDS: cefTRIAXone sodium 1 GM in 0.9 % Sodium Chloride 50 ML IV (08:29)
[2023-01-31] MEDS: oxyCODONE HCl Immed Release 5 MG TABLET PO (09:46)
--- NOTE | 2023-01-31 10:38 | MHC.CM.PN ---
PT CLEARED TO DC TODAY CM CALLED [facility] AND SPOKE TO VERONICA WHO REPORTS THEY ONLY THING THEY WILL NEED ARE SIGNED ORDERS FOR ANY NEW MEDS HE ALSO ASKED THAT BLS TRANSPORT BE ARRANGED FOR THE PT [facility]SP[facility] BOOKED FOR 1300 HOURS CM SPOKE TO [facility]TS HCP/SISTER, RIVAS [phone] WHO IS AWARE AND IN AGREEMENT WITH THE DCP.
[2023-01-31] MEDS: levoFLOXacin/D5W 750 MG/150 ML PIGGYBACK 100 MG IV (11:05)
--- NOTE | 2023-01-31 11:10 | PM.DS ---
DS: Providers Provider Date of Service: 01/31/23 Date of admission: 01/28/23 16:04 Date of discharge: 01/31/23 Primary care physician: Briana Reeves MD Consults: 01/28/23 18:39 Consult to Orthopedics Routine Consulting Provider: [facility] Reason for consultation: Acute, comminuted, mildly impacted left humeral neck fracture. DS: Diagnosis Discharge Diagnosis (1) Closed fracture of left proximal humerus: Status: Acute (2) Altered mental status: Status: Acute (3) Acute UTI: Status: Acute (4) UTI due to extended-spectrum beta lactamase (ESBL) producing Escherichia coli: Status: Acute DS: Summary Hospital Course Hospital Course: from my admission H+P 01/28/23: 67yo M resident of half-way with PMHx of hypothyroidism, chronic constipation, GERD, and schizoaffective disorder. Sent to ER by half-way staff as pt was not acting his normal self and urine was strong-smelling. Pt unable to answer simple questions at this point and as such history is per the ED physician. I attempted to call the half-way but there was no response; I left a message. I also left a message with the pt's HCP/sister Itzel at the number listed in the chart. He was found to have fever to 100.9 with WBC 11.9, PMNs 88%. Slightly hypernatremic with Na 148. Urine with nitrituria and pyuria. He was given ceftriaxone IV. 67yo M resident of half-way with PMHx of hypothyroidism, chronic constipation, GERD, and schizoaffective disorder; sent in with altered mental status and diagnosed with UTI. Admitted to the medical-surgical floor. Hospital course by problem: UTI- E coli ESBL - Initially treated with ceftriaxone but when ESBL E. coli grew from urine [fortunately sensitive to levofloxacin], he was switched to levofloxacin on 01/30/23. He will complete 6 more days of levofloxacin for a total of 7 days. L humerus fx - Previously seen in ED after sustained 01/23/23. Ortho formally consulted: nonoperative, OK to remove sling for ROM, f/u in clinic in 6 wk with repeat plain films encephalopathy due to infection - Resolved with treatment of the infection. history of aspiration - Pureed solids + honey-thick liquids as per last ORTHOPAEDIC NURSE consultation 11/19/22 hyperNa - Mild, resolved once taking POs. He was discharged back to his half-way with primary care and Orthopedics follow-up to be arranged by staff. Time Attestation Discharge coordination time: Greater than 30 minutes Quality: Safe Use of Opioids Does Pt have an Active Cancer Diagnosis on the Problem List?: No Quality: Stroke Does the patient have a stroke diagnosis?: No Physical Exam Vital Signs: Vital Signs: Last Vital Signs Temp 97.6 F 01/31/23 07:31 Pulse 76 01/31/23 07:31 Resp 18 01/31/23 07:31 BP 109/59 L 01/31/23 07:31 Pulse Ox 97 01/31/23 07:31 O2 Del Method Room Air 01/31/23 07:31 BMI result Body Mass Index 19.9 Gen: NAD, tardive dyskinesia HEENT: sclera anicteric, moist mucus membranes Neck: supple Lungs: clear to auscultation bilaterally Heart: regular rate and rhythm, no murmurs Abd: soft, non-tender, non-distended Ext: no edema, LUE in sling, distally N/V intact Skin: warm/well-perfused Neuro: alert, unable to assess orientation Psych: impaired insight DS: Data Data Completed and Pending Completed studies during hospitalization [Text1]: Laboratory Results WBC 5.2 X10*3/uL (4.8-10.8) 01/31/23 07:18 RBC 3.28 X10*6/uL (4.60-5.80) L 01/31/23 07:18 Hgb 10.0 g/dl (14.0-18.0) L 01/31/23 07:18 Hct 30.9 % (42.0-52.0) L 01/31/23 07:18 MCV 94.2 fL (80.0-98.0) 01/31/23 07:18 MCH 30.5 pg (27.0-33.0) 01/31/23 07:18 MCHC 32.4 g/dl (31.0-36.0) 01/31/23 07:18 RDW 13.3 % (11.0-16.0) 01/31/23 07:18 Plt Count 239 X10*3/uL (160-400) 01/31/23 07:18 MPV 10.7 fL (9.4-12.4) 01/31/23 07:18 Immature Gran % (Auto) 0.3 % (0.0-0.4) 01/28/23 11:08 Neut % (Auto) 88.0 % (45-73) H 01/28/23 11:08 Lymph % (Auto) 6.1 % (20-40) L 01/28/23 11:08 Mathews % (Auto) 4.5 % (2-11) 01/28/23 11:08 Eos % (Auto) 0.8 % (0-4) 01/28/23 11:08 Baso % (Auto) 0.3 % (0-2) 01/28/23 11:08 Lymph # (Auto) 0.7 X10*3/uL (1.2-4.9) L 01/28/23 11:08 Mathews # (Auto) 0.5 X10*3/uL (0.1-1.2) 01/28/23 11:08 Eos # (Auto) 0.1 X10*3/uL (0.0-0.4) 01/28/23 11:08 Baso # (Auto) 0.0 X10*3/uL (0.0-0.2) 01/28/23 11:08 Abs Immat Gran (auto) 0.03 X10*3/uL (0.00-0.03) 01/28/23 11:08 Absolute Neuts (auto) 10.5 x10*3/uL (2.0-8.3) H 01/28/23 11:08 Absolute Nucleated RBC 0.000 X10*3/uL (0.0-0.012) 01/31/23 07:18 Nucleated RBC % (auto) 0.0 /100WBC (0.0-0.2) 01/31/23 07:18 Absolute Retic 0.055 X10*6/uL (0.026-0.095) 01/29/23 05:56 Percent Retic 1.6 % (0.5-1.8) 01/29/23 05:56 Immature Retic Fraction 11.4 % (2.3-13.4) 01/29/23 05:56 Retic Hgb Equivalent 32.4 pg (30.0-35.0) 01/29/23 05:56 Hold Purple Top SEE NOTE 01/30/23 06:22 Sodium 141 mmol/L (135-145) 01/31/23 07:18 Potassium 3.6 mmol/L (3.3-5.1) 01/31/23 07:18 Chloride 108 mmol/L (96-108) 01/31/23 07:18 Carbon Dioxide 25 mmol/L (22-29) 01/31/23 07:18 Anion Gap 12 (12-20) 01/31/23 07:18 BUN 15 mg/dL (9-16) 01/31/23 07:18 Creatinine 0.83 mg/dL (0.5-1.4) 01/31/23 07:18 Estim Creat Clear Calc 63.3 01/31/23 07:18 Estimated GFR > 60 01/31/23 07:18 Random Glucose 105 mg/dL (60-115) 01/31/23 07:18 Lactic Acid 1.6 mmol/L (0.5-2.0) 01/28/23 11:09 Calcium 9.2 mg/dL (8.4-10.2) 01/31/23 07:18 Magnesium 2.2 mg/dL (1.6-2.6) 01/28/23 11:09 Iron 42 mcg/dL (45-160) L 01/29/23 05:56 TIBC 201 mcg/dL (228-428) L 01/29/23 05:56 % Saturation 21 % (15-50) 01/29/23 05:56 Unsat Iron Binding 159 ug/dL 01/29/23 05:56 Ferritin 165 ng/mL (20-250) 01/29/23 05:56 Total Bilirubin 0.5 mg/dL (0.0-1.0) 01/28/23 11:09 AST 18 U/L (5-37) 01/28/23 11:09 ALT 14 U/L (0-40) 01/28/23 11:09 Alkaline Phosphatase 72 U/L (39-117) 01/28/23 11:09 Lactate Dehydrogenase 179 U/L (118-273) 01/29/23 05:56 Total Protein 7.5 g/dL (6.5-8.0) 01/28/23 11:09 Albumin 4.0 g/dL (3.5-5.0) 01/28/23 11:09 Vitamin B12 678 pg/mL (200-900) 01/30/23 06:22 Folate 12.7 ng/mL (> or = 4.0) 01/30/23 06:22 Urine Color Yellow 01/28/23 13:00 Urine Appearance Turbid 01/28/23 13:00 Urine pH 8.5 (5.0-9.0) 01/28/23 13:00 Ur Specific Mears 1.020 (1.005-1.025) 01/28/23 13:00 Urine Protein Negative mg/dL (Neg-Trace) 01/28/23 13:00 Urine Glucose (UA) Negative mg/dL (Negative) 01/28/23 13:00 Urine Ketones Trace mg/dL (Negative) 01/28/23 13:00 Urine Blood Negative (Negative) 01/28/23 13:00 Urine Nitrite Positive (Negative) H 01/28/23 13:00 Ur Leukocyte Esterase Small (1+) (Negative) H 01/28/23 13:00 Urine RBC 0-2 /HPF (0-2) 01/28/23 13:00 Urine WBC 6-10 /HPF (0-5) H 01/28/23 13:00 Ur Squamous Epith Cells 0-2 /HPF (0-2) 01/28/23 13:00 Urine Bacteria 3+ (None Seen) 01/28/23 13:00 Hyaline Casts 0-2 /LPF (0-2) 01/28/23 13:[address] 01/28/23 11:57 IMPRESSION: 1. No acute intracranial process seen. 2. Age-related cerebral volume loss. Specimen: [id number] Collected: 01/28/23-UNK Status: COMP Req#: [id number] Received: 01/28/23 Source: [facility] Sp Desc: Urine gurrola Subm Dr: Odin Duncan Ordered: Urine Culture Procedure Result Verified Site Urine Culture Final 01/30/23 Organism 1 Escherichia coli Quant > 100,000 cfu/mL ESBL Note: NOTE: Extended-Spectrum Beta-Lactamase enzyme present E coli M.I.C. RX --------- --- Ampicillin >=32 R Ceftriaxone 8 R Ertapenem <=0.12 S Gentamicin <=1 S Levofloxacin <=0.12 S Nitrofurantoin <=16 S Trimethoprim/Sulfamethoxazole <=20 S Discharge Plan Discharge Anticipated Discharge Date/Time: 01/31/23 11:03 Patient Disposition: Xfer Other Discharge Diagnosis: encephalopathy due to E. coli ESBL UTI left humerus fracture Referrals: Frandy Bowman PA-C [Physician [employer] Dist[employer]] - 6 Weeks Po,Briana Umanzor MD [Primary Care Provider] - 1 Week Discharge Medications: New levofloxacin 750 mg tablet 750 mg PO DAILY Qty: 6 0RF Continued (DME) right AFO See Rx Instructions .Route .MEDSUPPLY Qty: 1 0RF Rx Instructions: As directed ondansetron HCl 8 mg tablet 8 mg PO BID PRN (Reason: nausea and vomiting) Qty: 20 0RF senna 8.6 mg capsule 17.2 mg PO BEDTIME Qty: 60 6RF Linzess 290 mcg capsule 290 mcg PO DAILY Qty: 30 3RF fluoxetine 20 mg capsule 40 mg PO DAILY lorazepam 0.5 mg tablet 0.5 mg PO BEDTIME polyethylene glycol 3350 17 gram/dose powder 17 g PO DAILY PRN (Reason: Constipation) ferrous sulfate 300 mg (60 mg iron)/5 mL Liquid 300 mg PO DAILY ascorbic acid (vitamin C) [Vitamin C] 500 mg Tablet,Chewable 500 mg PO DAILY desmopressin 0.1 mg tablet 0.1 mg PO BID levothyroxine 25 mcg tablet 25 mcg PO DAILY@0600 Rx Instructions: Crush the pill omeprazole 20 mg capsule,delayed release(DR/EC) 20 mg PO BID@0630,1630 Triple Paste 12.8 % ointment 1 appl topical DAILY Protocol: Apply to: Apply to: use with dressing chnage (DME) pull ups small See Rx Instructions .Route .MEDSUPPLY Qty: 100 11RF Rx Instructions: As directed clozapine 100 mg tablet 200 mg PO BEDTIME clozapine 25 mg tablet 50 mg PO BID (DME) blood pressure monitor [Blood Pressure Kit] Kit See Rx Instructions .ROUTE .MEDSUPPLY Qty: 1 0RF Rx Instructions: As directed pediatric cuff (DME) compressor, for nebulizer Device See Rx Instructions .Route Qty: 1 0RF Rx Instructions: As directed Discharge Orders: Discharge Order (Routine); Ordered 01/31/23 Ordered By: Ramsey Shafer Diet: Advance to usual diet Activity on Discharge: As tolerated Stand Alone Forms: Patient Portal Discharge page Care Plan Goals: cure of infection cure of fracture Health Concerns: encephalopathy due to E. coli ESBL UTI left humerus fracture Plan of Treatment: levofloxacin 750 mg daily x 6 days left arm in sling- OK to remove for hygiene and elbow range of motion exercises outpatient [place]opedics [place] 6 [place] [facility] follow up with your primary care doctor within 1 week. Return to the hospital if you experience recurrent or worsening symptoms. Assessment: /ass
== END 2023-01-31 13:42 | disposition other institution (70) | DRG 690 ==
LOC: HO.ED 13:30 → HO.EDOVER 16:12 → HO.S3 17:08
PROVIDERS: Physician Assistant; Admitting Provider Family Medicine; Emergency Provider Emergency Medicine Emergency Medical Services; PCP Internal Medicine; Visit Provider Family Medicine
DX: N39.0 Urinary tract infection, site not specified (principal); E87.0 Hyperosmolality and hypernatremia; S42.212A Unspecified displaced fracture of surgical neck of left humerus, initial encounter for closed fracture; G93.49 Other encephalopathy; Z16.11 Resistance to penicillins; Z16.12 Extended spectrum beta lactamase (ESBL) resistance; B96.20 Unspecified Escherichia coli [E. coli] as the cause of diseases classified elsewhere; W19.XXXA Unspecified fall, initial encounter; D64.9 Anemia, unspecified; E03.9 Hypothyroidism, unspecified; K59.09 Other constipation; F25.9 Schizoaffective disorder, unspecified; K21.9 Gastro-esophageal reflux disease without esophagitis; Z79.890 Hormone replacement therapy; Z79.899 Other long term (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
CPT/HCPCS: 36415; 70450; 80048; 80053; 81001; 82607; 82728; 82746; 83540; 83605; 83615; 83735; 85025; 85027; 85045; 87040; 87086; 87088; 87186; 92610; 99285; J0696; J1650; J1956

== ENCOUNTER → 2023-01-28 16:04 | Outpatient (BNV) | payer MEDICARE, MEDICAID, SELFPAY | PROVIDERS: Admitting Provider Family Medicine; Emergency Provider Emergency Medicine Emergency Medical Services; PCP Internal Medicine; Visit Provider Physician Assistant | DX: S42.202A Unspecified fracture of upper end of left humerus, initial encounter for closed fracture (principal) | CPT/HCPCS: 99231 ==

== ENCOUNTER → 2023-01-28 16:04 | Outpatient (BNV) | payer MEDICARE, MEDICAID, SELFPAY | PROVIDERS: Admitting Provider Family Medicine; Emergency Provider Emergency Medicine Emergency Medical Services; PCP Internal Medicine; Visit Provider Family Medicine | DX: N39.0 Urinary tract infection, site not specified (principal); B96.29 Other Escherichia coli [E. coli] as the cause of diseases classified elsewhere; Z16.12 Extended spectrum beta lactamase (ESBL) resistance; R41.82 Altered mental status, unspecified; S42.202A Unspecified fracture of upper end of left humerus, initial encounter for closed fracture | CPT/HCPCS: 99222; 99232; 99239 ==

== ENCOUNTER 2023-02-01 06:32 | Outpatient (REF) | payer MEDICARE, MEDICAID, SELFPAY ==
--- NOTE | ~2023-02-01 | XR_ITS ---
EXAMINATION: XR SHOULDER, LEFT CLINICAL INFORMATION: Left shoulder pain. COMPARISON: 01/23/2023 TECHNIQUE: Two views of the left shoulder. FINDINGS: Again seen is a transverse fracture through the left humeral neck with slight impaction. Since the prior study, no significant interval healing has occurred. Alignment is unchanged. XR/XR shoulder LT min 2V IMPRESSION: Unchanged appearance of left humeral neck fracture.
== END 2023-02-01 06:33 | disposition home or self-care (01) ==
LOC: HO.HOSX 06:32
PROVIDERS: Visit Provider Physician Assistant
DX: S42.295A Other nondisplaced fracture of upper end of left humerus, initial encounter for closed fracture (principal); X58.XXXA Exposure to other specified factors, initial encounter; Y93.9 Activity, unspecified; Y92.9 Unspecified place or not applicable; Y99.9 Unspecified external cause status
CPT/HCPCS: 73030; 99212

== ENCOUNTER 2023-02-01 12:57 | Outpatient (AMB) | payer MEDICARE, MEDICAID, SELFPAY ==
--- NOTE | 2023-02-01 13:13 | A.OFFVIS_ITS ---
Intake Intake Visit Reasons: FC- FX left humeral surgical neck mild impaction Intake Note: Dagoberto mccarty 67 year old left hand dominant male presents today for an ER follow up of left humeral fx, DOI 01/23/23. Patients reports having a mechanical fall, presented to [facility] [place] ED the same day where xrays were taken and placed in a sling. The facility employee states he complains of pain. Allergies clindamycin Allergy (Unknown, Verified 12/16/22 10:43) Unknown Sulfa (Sulfonamide Antibiotics) [SULFA(SULFONAMIDE ANTIBIOTICS)] Allergy (Unknown, Verified 12/16/22 10:43) UNKNOWN sulfamethoxazole [From Bactrim] Allergy (Unknown, Verified 12/16/22 10:43) Unknown trimethoprim [From Bactrim] Allergy (Unknown, Verified 12/16/22 10:43) Unknown HPI FC- FX left humeral surgical neck mild impaction HPI Details 67-year-old left hand dominant male who presents to the office today for an ER follow-up of left arm injury s/p mechanical fall, 01/23/23. He was seen at ED the same day where x-rays were performed and he was placed in a sling. The facility employee states he has chronic pain in his arm. He also c/o paralysis of his hand. 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 Paraparesis Metabolic encephalopathy COVID-19 Adult failure to thrive MVP (mitral valve prolapse) Mentally challenged Anxiety GERD (gastroesophageal reflux disease) Impaired glucose tolerance Tracheomalacia Schizophrenia Tubular adenoma of colon COPD (chronic obstructive pulmonary disease) Pneumonia Anemia Hypothyroid Depression Asthma Oropharyngeal dysphagia Surgical History History of bronchoscopy History of colonoscopy S/P tracheoplasty History of esophagogastroduodenoscopy (EGD) Family History Family/Other Unknown family medical history Father Hypertension Mother Unknown family medical history Brother No problems noted. Sister No problems noted. Social History Household Members: Unknown / Unable to assess Household Members Other:: Resides in Care Home Housing: Other Housing Other:: care home Are you a primary client care representative to a significant other at home: No Unable to assess alcohol history related to: Unable to respond and Unknown Alcohol intake: never Comment: 1:1 sitter Patient Tobacco Use Status: Never used Tobacco e-Cigarette/Vaping Use: Never Used Second Hand Smoke Exposure: No Advance Directives Date on File: 11/28/20 service: No Current occupational status: disabled Cognitive needs: Yes Hearing needs: No Vision needs: No Review of Systems Const All systems reviewed & are unremarkable except as noted in HPI and below Physical Exam Const General: cooperative and no acute distress Orientation/consciousness: patient oriented x3 Resp Effort & Inspection: normal respiratory effort and able to speak in complete sentences Cardio Peripheral pulses: Peripheral pulses 2+ throughout Neuro General: patient oriented x3 Extrem Other: Left shoulder: Normal to inspection.Mild Swelling and tenderness over the proximal humerus which extends down the arm. Anterior deltoid sensation intact. Elbow and wrist ROM intact. NVI. Office Procedures Fracture Care Fracture Billing Code: Fracture Billing Code Results Reviewed Results Reviewed: Xrays were obtained in the office today and personally reviewed by me of the left shoulder significant for proximal humerus fracture with stable alignment Assessment & Plan Assessment & Plan (1) Closed fracture of left proximal humerus: Code(s): S42.A - Unspecified fracture of upper end of left humerus, initial encounter for closed fracture Qualifiers: Encounter type: initial encounter Fracture morphology: other fracture Fracture alignment: nondisplaced Qualified Code(s): S42.295A - Other nondisplaced fracture of upper end of left humerus, initial encounter for closed fracture Plan He will use the sling for comfort. He will avoid any positions above shoulder height. He will begin a course of physical therapy to work on ROM and periscapular stabilization. I would like to see him back in 4 weeks with new x- rays, sooner if needed. Orders: Orders PT Evaluation and Treatment Today S42.202A - Unspecified fracture of upper end of left humerus, initial encounter for closed fracture XR shoulder LT min 2V Today M25.512 - Pain in left shoulder Coding Level of Care Code New Pt Level 3 (79649) Diagnoses Other closed nondisplaced fracture of proximal end of left humerus, initial encounter S42.295A Encounter type: initial encounter Fracture morphology: other fracture Fracture alignment: nondisplaced CPT Codes Fracture Care - Fracture Billing Code: Fracture Billing Code ([id number])
== END 2023-02-01 13:45 | disposition home or self-care (01) ==
PROVIDERS: PCP Internal Medicine; Visit Provider Physician Assistant
DX: S42.295A Other nondisplaced fracture of upper end of left humerus, initial encounter for closed fracture (principal); W19.XXXA Unspecified fall, initial encounter
CPT/HCPCS: 99213

== ENCOUNTER 2023-02-04 13:14 | Emergency (ER) | payer MEDICARE, MEDICAID, SELFPAY ==
--- NOTE | ~2023-02-04 | CT_ITS ---
EXAMINATION: CT CHEST WITHOUT CONTRAST CLINICAL INFORMATION: Shortness of breath COMPARISON: Chest radiograph 01/02/2023, CT chest 06/26/2022 TECHNIQUE: Multidetector volumetric CT imaging of the chest was done. Axial MIP volume rendering provided. Sagittal and coronal reformatted images were obtained. This CT examination was performed using dose optimization techniques as appropriate, variously including the following: *Automated exposure control *Adjustment of mA and/or kV according to patient size (this includes techniques or standardized protocols for targeted exams where dose is matched to indication/reason for exam; i.e. extremities or head) *Use of iterative reconstruction technique DLP: 200 mGy-cm FINDINGS: LUNGS: Compared to the 06/26/2022 study, there's been significant improvement in the right lower lobe consolidation with residual scarring present. Bibasilar basilar scarring and traction bronchiectasis is present in both lower lobes (5:360) as well as in the right middle lobe (5:340) MEDIASTINUM: The mediastinum is normal. CORONARY ARTERY CALCIFICATION: None visualized on this study. PLEURA: There is no pleural effusion. No pleural mass or thickening. AXILLA: No lymphadenopathy. UPPER ABDOMEN: Unremarkable. OSSEOUS STRUCTURES: Compression fractures are noted involving T4 and T5, unchanged from prior. CT/CT chest wo IV con IMPRESSION: 1. Compared to the 06/26/2022 study, there's been significant improvement in the right lower lobe consolidation with residual scarring present. 2. Bibasilar basilar scarring and traction bronchiectasis is present in both lower lobes as well as in the right middle lobe. 3. Compression fractures involving T4 and T5, unchanged from prior. Fleischner guidelines were followed.
[2023-02-04 13:33] VITALS: BP 106/70; BP 111/65; PULSE 93; PULSE 95; RESP 18; TEMP 37.2; O2SAT 96; O2SAT 99; BMI 18.4
--- NOTE | 2023-02-04 13:43 | PC.NURSE ---
patient a&ox2, lungs clear throughout, vss, call pedraza within reach, will continue to monitor.
--- NOTE | 2023-02-04 14:23 | ED_ITS ---
HPI - General Adult General Chief complaint: General Medical Stated complaint: ?ASPIRATION PER EMS Time Seen by Provider: 02/04/23 14:03 Source: patient and EMS Mode of arrival: EMS Limitations: other (poor history) History of Present Illness HPI narrative: 59-year-old male history of recent UTI, schizophrenia, COPD, pneumonia, depression, asthma, dysphagia, mild encephalopathy, coming from a skilled nursing where skilled nursing staff were concerned patient may have aspirated. When I asked patient how he is doing or if he has any complaints he says he is fine. Patient does not know why he is here. Denies chest pain, shortness of breath, nausea, vomiting, abdominal pain, headache, vision changes, dizziness, fevers and chills. Related Data Home Medications Medication Instructions Recorded Confirmed clozapine 100 mg tablet 200 mg PO BEDTIME 11/27/20 02/04/23 fluoxetine 20 mg capsule 40 mg PO DAILY 11/27/20 02/04/23 clozapine 25 mg tablet 50 mg PO BID 08/13/21 02/04/23 lorazepam 0.5 mg tablet 0.5 mg PO BEDTIME 10/19/21 02/04/23 polyethylene glycol 3350 17 17 g PO DAILY PRN Constipation 10/19/21 02/04/23 gram/dose oral powder desmopressin 0.1 mg tablet 0.1 mg PO BID 01/28/23 02/04/23 ferrous sulfate 300 mg (60 mg 300 mg PO DAILY 01/28/23 02/04/23 iron)/5 mL oral liquid levothyroxine 25 mcg tablet 25 mcg PO DAILY@0600 01/28/23 02/04/23 omeprazole 20 mg capsule,delayed 20 mg PO BID@0630,1630 01/28/23 02/04/23 release zinc oxide 12.8 % topical ointment 1 appl topical DAILY 01/28/23 02/04/23 (Triple Paste) acetaminophen 160 mg/5 mL oral 640 mg PO Q6H PRN Pain 02/01/23 02/04/23 liquid (Children's Acetaminophen) ascorbic acid (vitamin C) 500 mg/5 500 mg PO DAILY 02/04/23 02/04/23 mL oral liquid (Liquid C) Previous Rx's Medication Instructions Recorded pull ups small #100 ea 06/05/20 right AFO #1 ea 11/24/21 ondansetron HCl 8 mg tablet 8 mg PO BID PRN nausea and 06/11/22 vomiting #20 tabs compressor, for nebulizer #1 ea 11/27/22 sennosides 8.6 mg capsule (senna) 17.2 mg (2 x 8.6 mg) PO BEDTIME 12/01/22 #60 caps linaclotide 290 mcg capsule 290 mcg PO DAILY #30 caps 12/04/22 (Linzess) blood pressure monitor (Blood #1 ea 12/16/22 Pressure Kit) levofloxacin 750 mg tablet 750 mg PO DAILY #6 tabs 01/31/23 amoxicillin 875 mg-potassium 1 tab PO BID #13 tabs 02/04/23 clavulanate 125 mg tablet Allergies Allergy/AdvReac Type Severity Reaction Status Date / Time clindamycin Allergy Unknown Unknown Verified 02/04/23 13:33 Sulfa (Sulfonamide Allergy Unknown UNKNOWN Verified 02/04/23 13:33 Antibiotics) [SULFA(SULFONAMIDE ANTIBIOTICS)] sulfamethoxazole Allergy Unknown Unknown Verified 02/04/23 13:33 [From Bactrim] trimethoprim [From Bactrim] Allergy Unknown Unknown Verified 02/04/23 13:33 Review of Systems 2 Review of Systems: Constitutional : No Weight loss, No Fever, No Chills, No Fatigue, No Malaise ENT/Mouth : No sore throat, No Rhinorrhea Eyes: No Eye Pain, No Swelling, No Redness Cardiovascular : No Chest Pain, No SOB, No Dyspnea on Exertion, No Orthopnea, No Edema, No Palpitations Respiratory : No Cough, No Sputum, No Wheezing Gastrointestinal : No Nausea, No Vomiting, No Diarrhea, No Constipation, No abdominal Pain, No Hematochezia, No Melena Genitourinary : No Dysuria, No Urinary Frequency, No Hematuria, Musculoskeletal : No joint pain, No Myalgias, No Joint Swelling Skin : No Skin Lesions, No rash Neuro : No Weakness, No Numbness, No Dizziness, No Headache Psych : No Anxiety/Panic, No Depression All other systems reviewed and are negative Yes all other systems are reviewed and are negative [facility] Past Medical History Attestation statement: The following information was validated with the patient. 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 Paraparesis Metabolic encephalopathy COVID-19 Adult failure to thrive MVP (mitral valve prolapse) Mentally challenged Anxiety GERD (gastroesophageal reflux disease) Impaired glucose tolerance Tracheomalacia Schizophrenia Tubular adenoma of colon COPD (chronic obstructive pulmonary disease) Pneumonia Anemia Hypothyroid Depression Asthma Oropharyngeal dysphagia Surgical History History of bronchoscopy History of colonoscopy S/P tracheoplasty History of esophagogastroduodenoscopy (EGD) Family History Family History Family/Other Unknown family medical history Father Hypertension Mother Unknown family medical history Brother No problems noted. Sister No problems noted. Social History Social History Household Members: Unknown / Unable to assess Household Members Other:: Resides in [facility] Housing: Other Housing Other:: shelter Are you a primary healthcare administrator to a significant other at home: No Unable to assess alcohol history related to: Unable to respond and Unknown Alcohol intake: never Comment: 1:1 sitter Patient Tobacco Use Status: Never used Tobacco e-Cigarette/Vaping Use: Never Used Second Hand Smoke Exposure: No Advance Directives Date on File: 11/28/20 service: No Current occupational status: disabled Cognitive needs: Yes Hearing needs: No Vision needs: No Physical Exam ED Vital Signs: Vital Signs - 24 hr 02/04/23 13:33 02/04/23 15:08 02/04/23 18:45 Temperature 98.9 F 98.1 F Pulse Rate 93 87 79 Respiratory Rate 18 16 16 Blood Pressure 111/65 135/80 145/70 H Pulse Oximetry 96 96 97 Oxygen Delivery Method Room Air Room Air Room Air BMI result Body Mass Index 18.4 Vital signs stable Appearance: Alert.? Oriented X3.? No acute distress.? Head: Normocephalic, atraumatic, no step-offs or deformities Eyes: Pupils equal, round and reactive to light.? ENT: Pharynx normal.? Neck: Normal inspection.? Neck supple.? CVS: Normal heart rate and rhythm.? Pulses normal.? Respiratory: No respiratory distress.? Breath sounds with faint crackles bilaterally lower lobes..? Abdomen: Soft and nontender.? Skin: Skin warm and dry.? Normal skin color.? Normal skin turgor.? Extremities: No lower extremity edema.? No calf ttp. 5/5 strength to bilateral upper and lower extremities Back: No midline tenderness, no C-spine tenderness, full range of motion, no CVA tenderness bilaterally Neuro: Oriented X 3.? No motor deficit.? No sensory deficit. CN 2-12 intact Course Reevaluation(s) Reevaluation #1: CBC unremarkable appears to be around patient's baseline with a normocytic anemia. Chemistry no acute findings requiring intervention. Patient has history of hyper calcinosis. Troponin negative. CT scan done however results not back. Sign out to Tl PANTOJA Time: 16:27 Reevaluation #2: Patient received in sign-out at change of shift pending CT scan which shows improving pneumonia when compared to June. The patient has stable vital signs, reports feeling well. Will still cover the patient with Augmentin for concern for aspiration Time: 21:50 Medical Decision Making Medical Decision Making [facility] Narrative: 67-year-old male presents from skilled nursing where they were concerned he aspirated he has no medical complaints today. Well appearing. Poor historian however Physical exam with No respiratory distress.? Breath sounds with faint crackles bilaterally lower lobes..? History and physical exam concerning for viral illness versus aspiration pneumonia versus chronic lung disease. Unlikely acute respiratory distress, pulmonary embolism, ACS, dissection, pneumothorax. Plan labs, imaging. Differential Diagnosis Differential Diagnoses: The differential diagnosis associated with the presentation includes History and physical exam concerning for viral illness versus aspiration pneumonia versus chronic lung disease. Unlikely acute respiratory distress, pulmonary embolism, ACS, dissection, pneumothorax. Admission/Observation Consideration of admission/observation: Escalation of care including admission/observation considered Unlikely Lab Data [facility] Lab Attestation statement: I reviewed the patient's lab results. 02/04/23 14:42 02/04/23 14:42 Labs: Lab Results 02/04/23 Range/Units 14:42 WBC 9.5 (4.8-10.8) X10*3/uL RBC 3.81 L (4.60-5.80) X10*6/uL Hgb 11.8 L (14.0-18.0) g/dl Hct 36.4 L (42.0-52.0) % MCV 95.5 (80.0-98.0) fL MCH 31.0 (27.0-33.0) pg MCHC 32.4 (31.0-36.0) g/dl RDW 14.3 (11.0-16.0) % Plt Count 376 D (160-400) X10*3/uL MPV 10.4 (9.4-12.4) fL Immature Gran % (Auto) 0.7 H (0.0-0.4) % Neut % (Auto) 82.0 H (45-73) % Lymph % (Auto) 10.8 L (20-40) % [place] % (Auto) 5.1 (2-11) % Eos % (Auto) 0.8 (0-4) % Baso % (Auto) 0.6 (0-2) % Lymph # (Auto) 1.0 L (1.2-4.9) X10*3/uL [place] # (Auto) 0.5 (0.1-1.2) X10*3/uL Eos # (Auto) 0.1 (0.0-0.4) X10*3/uL Baso # (Auto) 0.1 (0.0-0.2) X10*3/uL Abs Immat Gran (auto) 0.07 H (0.00-0.03) X10*3/uL Absolute Neuts (auto) 7.8 (2.0-8.3) x10*3/uL Absolute Nucleated RBC 0.000 (0.0-0.012) X10*3/uL Nucleated RBC % (auto) 0.0 (0.0-0.2) /100WBC Sodium 145 (135-145) mmol/L Potassium 4.5 D (3.3-5.1) mmol/L Chloride 110 H (96-108) mmol/L Carbon Dioxide 27 (22-29) mmol/L Anion Gap 13 (12-20) BUN 27 H (9-16) mg/dL Creatinine 1.15 (0.5-1.4) mg/dL Estim Creat Clear Calc 45.0 Estimated GFR > 60 Random Glucose 90 (60-115) mg/dL Calcium 10.3 H D (8.4-10.2) mg/dL Magnesium 2.4 (1.6-2.6) mg/dL Total Bilirubin 0.3 (0.0-1.0) mg/dL AST 21 (5-37) U/L ALT 12 (0-40) U/L Alkaline Phosphatase 131 H (39-117) U/L Troponin I High Sens < 2.7 (<3.5-35.0) ng/L Total Protein 7.8 (6.5-8.0) g/dL Albumin 4.0 (3.5-5.0) g/dL Independent Interpretation I performed an independent interpretation of an: EKG and CT Scan Radiology Impression Discussion of test interpretation with radiology: I have reviewed the radiologist's reading. External Record Review External record reviewed: Inpatient record, Office record, Outpatient record, Prior outpatient labs, Prior outpatient radiology, Primary care record and Outside ED record Chronic Conditions Patient?s care impacted by: Other (Hypothyroid, anemia, GERD, COPD, BPH, recent UTI) Discharge Plan Discharge Clinical Impression: URI (upper respiratory infection) Patient Disposition: Home, Self-Care Instructions: Upper Respiratory Infection (ED), Viral Syndrome (ED) Additional Instructions: Take your medications as prescribed. If you were prescribed antibiotics today, it is important that you take your medication to their entirety, do not skip any doses, do not finish them early. Follow-up with your primary care provider this week. Return to the emergency department with new or worsening symptoms. Such as fevers, chills, chest pain, shortness of breath, nausea, vomiting, dizziness, headache, vision changes, lethargy In case of emergency call 911 Prescriptions: New amoxicillin-pot clavulanate 875-125 mg tablet 1 tab PO BID Qty: 13 0RF No Action (DME) right AFO See Rx Instructions .Route .MEDSUPPLY Qty: 1 0RF Rx Instructions: As directed ondansetron HCl 8 mg tablet 8 mg PO BID PRN (Reason: nausea and vomiting) Qty: 20 0RF senna 8.6 mg capsule 17.2 mg PO BEDTIME Qty: 60 6RF Linzess 290 mcg capsule 290 mcg PO DAILY Qty: 30 3RF fluoxetine 20 mg capsule 40 mg PO DAILY lorazepam 0.5 mg tablet 0.5 mg PO BEDTIME polyethylene glycol 3350 17 gram/dose powder 17 g PO DAILY PRN (Reason: Constipation) Liquid C 500 mg/5 mL liquid 500 mg PO DAILY ferrous sulfate 300 mg (60 mg iron)/5 mL Liquid 300 mg PO DAILY desmopressin 0.1 mg tablet 0.1 mg PO BID levothyroxine 25 mcg tablet 25 mcg PO DAILY@0600 Rx Instructions: Crush the pill omeprazole 20 mg capsule,delayed release(DR/EC) 20 mg PO BID@0630,1630 Triple Paste 12.8 % ointment 1 appl topical DAILY Protocol: Apply to: Apply to: use with dressing chnage levofloxacin 750 mg tablet 750 mg PO DAILY Qty: 6 0RF (DME) pull ups small See Rx Instructions .Route .MEDSUPPLY Qty: 100 11RF Rx Instructions: As directed clozapine 100 mg tablet 200 mg PO BEDTIME clozapine 25 mg tablet 50 mg PO BID (DME) blood pressure monitor [Blood Pressure Kit] Kit See Rx Instructions .ROUTE .MEDSUPPLY Qty: 1 0RF Rx Instructions: As directed pediatric cuff acetaminophen [Children's Acetaminophen] 160 mg/5 mL liquid 640 mg PO Q6H PRN (Reason: Pain) (DME) compressor, for nebulizer Device See Rx Instructions .Route Qty: 1 0RF Rx Instructions: As directed Referrals: Po,Briana Umanzor MD [Primary Care Provider] - 2 days
--- NOTE | 2023-02-04 14:29 | ECG_ITS ---
Test Reason : SOB Blood Pressure : / mmHG Vent. Rate : 090 BPM Atrial Rate : 090 BPM P-R Int : 170 ms QRS Dur : 080 ms QT Int : 344 ms P-R-T Axes : 048 034 040 degrees QTc Int : 420 ms Normal sinus rhythm with sinus arrhythmia Normal ECG When compared with ECG of 23-JAN-2023 08:55, No significant change was found Referred By: Odin Duncan Electronically Signed By:Cruzito Ross
[2023-02-04 14:49] LABS: MANUAL DIFF FLAG NO
[2023-02-04 14:52] LABS: Basophils Absolute Auto 0.1 X10*3/uL (0.0-0.2); Basophils Percent Auto 0.6 % (0-2); Eosinophils Absolute Auto 0.1 X10*3/uL (0.0-0.4); Eosinophils Percent Auto 0.8 % (0-4); Hematocrit 36.4 % (42.0-52.0); Hemoglobin 11.8 g/dl (14.0-18.0); Imm Gran Abs Auto 0.07 X10*3/uL (0.00-0.03); Imm Gran Pct Auto 0.7 % (0.0-0.4); Lymphocytes Percent Auto 10.8 % (20-40); Mean Corpuscular HGB Conc 32.4 g/dl (31.0-36.0); Mean Corpuscular Volume 95.5 fL (80.0-98.0); Mean Platelet Volume 10.4 fL (9.4-12.4); Monocytes Absolute Auto 0.5 X10*3/uL (0.1-1.2); Monocytes Percent Auto 5.1 % (2-11); Neutrophils Absolute Auto 7.8 x10*3/uL (2.0-8.3); Platelet Count 376 X10*3/uL (160-400); Red Blood Count 3.81 X10*6/uL (4.60-5.80); Red Cell Distribution Width 14.3 % (11.0-16.0); White Blood Count 9.5 X10*3/uL (4.8-10.8)
[2023-02-04 15:08] VITALS: BP 135/80; PULSE 87; RESP 16; TEMP 36.7; O2SAT 96
--- NOTE | 2023-02-04 15:09 | PC.NURSE ---
iv inserted, labs drawn, ekg performed- pt nsr, pt has no c/o pain/discomfort call pedraza within reach, will continue to monitor
[2023-02-04 15:11] LABS: Alanine Aminotransferase 12 U/L (0-40); Alkaline Phosphatase 131 U/L (39-117); Anion Gap 13 (12-20); Aspartate Amino Transferase 21 U/L (5-37); Bilirubin Total 0.3 mg/dL (0.0-1.0); Blood Urea Nitrogen 27 mg/dL (9-16); Calcium 10.3 mg/dL (8.4-10.2); Carbon Dioxide 27 mmol/L (22-29); Chloride 110 mmol/L (96-108); Estimated Glomerular Filt Rate > 60; Glucose Random 90 mg/dL (60-115); Magnesium 2.4 mg/dL (1.6-2.6); Potassium 4.5 mmol/L (3.3-5.1); Sodium 145 mmol/L (135-145); Total Protein 7.8 g/dL (6.5-8.0)
[2023-02-04 15:18] LABS: Troponin-I High Sensitivity < 2.7 ng/L (<3.5-35.0)
[2023-02-04 18:45] VITALS: BP 145/70; PULSE 79; RESP 16; O2SAT 97
--- NOTE | 2023-02-04 19:27 | PC.NURSE ---
this rn assumed care of pt. pt resting in stretcher, no acute distress noted.
--- NOTE | 2023-02-04 20:42 | PC.NURSE ---
[facility] number- [phone]
[2023-02-04 22:00] VITALS: BP 141/73; PULSE 82; RESP 16; TEMP 36.4; O2SAT 98
[2023-02-04] MEDS: Amoxicillin/Potassium Clav 875 MG TABLET PO (22:15)
--- NOTE | 2023-02-04 22:18 | PC.NURSE ---
pt medicated per mar.
[2023-02-05 01:04] VITALS: BP 153/78; PULSE 72; RESP 16; TEMP 37.2; O2SAT 97
== END 2023-02-05 01:40 | disposition home or self-care (01) ==
PROVIDERS: Physician Assistant; Emergency Provider Student in an Organized Health Care Education/Training Program; PCP Internal Medicine
DX: J06.9 Acute upper respiratory infection, unspecified (principal); R06.02 Shortness of breath; M54.6 Pain in thoracic spine; I49.8 Other specified cardiac arrhythmias; Z79.899 Other long term (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
CPT/HCPCS: 36415; 71250; 80053; 83735; 84484; 85025; 93005; 99284

== ENCOUNTER → 2023-02-04 14:29 | Outpatient (BNV) | payer MEDICARE, MEDICAID, SELFPAY | PROVIDERS: Emergency Provider Student in an Organized Health Care Education/Training Program; PCP Internal Medicine; Visit Provider Internal Medicine Cardiovascular Disease | DX: I49.9 Cardiac arrhythmia, unspecified (principal) | CPT/HCPCS: 93010 ==

== ENCOUNTER 2023-02-06 17:45 | Emergency (ER) | payer MEDICARE, MEDICAID, SELFPAY ==
--- NOTE | ~2023-02-06 | US_ITS ---
EXAMINATION: US VENOUS WITH DOPPLER UPPER EXTREMITY, LEFT CLINICAL INFORMATION: Left upper extremity fracture. Pain. COMPARISON: None available. TECHNIQUE: Ultrasound of the upper extremity is performed using compression sonography and color and pulse Doppler flow with assessment of augmentation of flow. There is also imaging and Doppler assessment of the jugular and subclavian veins. Spectral analysis with color-flow imaging is performed. FINDINGS: Technically limited study secondary to nonhealed shoulder fracture resulting in limited movement. Respiratory variation, normal compression, and augmented flow are noted throughout the upper extremity including the axillary, brachial, cubital, and radial and ulnar veins. There is normal flow in the internal jugular and subclavian veins. There is no visible deep or superficial thrombophlebitis. If the patient's symptoms progress, a followup ultrasound in 5 -7 days might be of value to exclude proximal propagation from a nonvisualized distal arm vein. US/US venous duplex UE LT IMPRESSION: No DVT demonstrated in the left upper extremity.
--- NOTE | ~2023-02-06 | XR_ITS ---
EXAMINATION: XR SHOULDER, LEFT CLINICAL INFORMATION: Pain none fracture COMPARISON: Left shoulder radiograph from 02/01/2023 TECHNIQUE: Two views of the left shoulder. FINDINGS: Similar appearance of transverse fracture through the left humeral neck as well as inferior medial displacement of the humeral head in relation to the glenoid fossa, increased from prior imaging. Joint space alignment are otherwise maintained. Soft tissues are unremarkable. Visualized portions of the left chest are unremarkable. XR/XR shoulder LT min 2V IMPRESSION: Similar appearance of transverse fracture through the left humeral neck as well as inferior medial displacement of the humeral head in relation to the glenoid fossa, increased from prior imaging.
--- NOTE | 2023-02-06 17:48 | ED.GENADULT ---
HPI - General Adult General Chief complaint: Extremity Injury, Upper Stated complaint: BROKE ARM 2 WKS PRIOR, PAIN/SWELLING OF 1 DAY Time Seen by Provider: 02/06/23 17:47 Source: patient, EMS, RN notes reviewed and old records reviewed Mode of arrival: EMS History of Present Illness HPI narrative: 67-year-old male history of recent UTI, schizophrenia, COPD, pneumonia, depression, asthma, dysphagia, mild encephalopathy, left humeral fracture 01/23/23, presenting to ED from retirement via EMS c/o left shoulder pain and increased swelling per staff. Patient was recently evaluated in orthopedic office outpatient on 02/01/2023, physical therapy recommended, repeat x-rays at that time with appropriately healing fracture. Patient denies recent injury/fall or trauma. History limited due to patient's baseline mental status Related Data Home Medications Medication Instructions Recorded Confirmed clozapine 100 mg tablet 200 mg PO BEDTIME 11/27/20 02/04/23 fluoxetine 20 mg capsule 40 mg PO DAILY 11/27/20 02/04/23 clozapine 25 mg tablet 50 mg PO BID 08/13/21 02/04/23 lorazepam 0.5 mg tablet 0.5 mg PO BEDTIME 10/19/21 02/04/23 polyethylene glycol 3350 17 17 g PO DAILY PRN Constipation 10/19/21 02/04/23 gram/dose oral powder desmopressin 0.1 mg tablet 0.1 mg PO BID 01/28/23 02/04/23 ferrous sulfate 300 mg (60 mg 300 mg PO DAILY 01/28/23 02/04/23 iron)/5 mL oral liquid levothyroxine 25 mcg tablet 25 mcg PO DAILY@0600 01/28/23 02/04/23 omeprazole 20 mg capsule,delayed 20 mg PO BID@0630,1630 01/28/23 02/04/23 release zinc oxide 12.8 % topical ointment 1 appl topical DAILY 01/28/23 02/04/23 (Triple Paste) acetaminophen 160 mg/5 mL oral 640 mg PO Q6H PRN Pain 02/01/23 02/04/23 liquid (Children's Acetaminophen) ascorbic acid (vitamin C) 500 mg/5 500 mg PO DAILY 02/04/23 02/04/23 mL oral liquid (Liquid C) Previous Rx's Medication Instructions Recorded pull ups small #100 ea 06/05/20 right AFO #1 ea 10/03/22 ondansetron HCl 8 mg tablet 8 mg PO BID PRN nausea and 06/11/22 vomiting #20 tabs compressor, for nebulizer #1 ea 11/27/22 sennosides 8.6 mg capsule (senna) 17.2 mg (2 x 8.6 mg) PO BEDTIME 12/01/22 #60 caps linaclotide 290 mcg capsule 290 mcg PO DAILY #30 caps 12/04/22 (Linzess) blood pressure monitor (Blood #1 ea 12/16/22 Pressure Kit) levofloxacin 750 mg tablet 750 mg PO DAILY #6 tabs 01/31/23 amoxicillin 875 mg-potassium 1 tab PO BID #13 tabs 02/04/23 clavulanate 125 mg tablet acetaminophen 500 mg tablet 500 mg PO Q6H PRN fever or pain 02/06/23 (Tylenol Extra Strength) #14 tabs naproxen 500 mg tablet 500 mg PO BID PRN pain 10 days #20 02/06/23 tabs Allergies Allergy/AdvReac Type Severity Reaction Status Date / Time clindamycin Allergy Unknown Unknown Verified 02/04/23 13:33 Sulfa (Sulfonamide Allergy Unknown UNKNOWN Verified 02/04/23 13:33 Antibiotics) [SULFA(SULFONAMIDE ANTIBIOTICS)] sulfamethoxazole Allergy Unknown Unknown Verified 02/04/23 13:33 [From Bactrim] trimethoprim [From Bactrim] Allergy Unknown Unknown Verified 02/04/23 13:33 Review of Systems Review of Systems: Constitutional: No Fever Musculoskeletal: + joint pain, No Myalgias, + Joint Swelling Skin: No Skin Lesions, No rash ROS limited due to baseline mental status Yes all other systems are reviewed and are negative Constitutional: Constitutional: Reports as per [facility] Past Medical History Attestation statement: The following information was validated with the patient. 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 Paraparesis Metabolic encephalopathy COVID-19 Adult failure to thrive MVP (mitral valve prolapse) Mentally challenged Anxiety GERD (gastroesophageal reflux disease) Impaired glucose tolerance Tracheomalacia Schizophrenia Tubular adenoma of colon COPD (chronic obstructive pulmonary disease) Pneumonia Anemia Hypothyroid Depression Asthma Oropharyngeal dysphagia Surgical History History of bronchoscopy History of colonoscopy S/P tracheoplasty History of esophagogastroduodenoscopy (EGD) Family History Family History Family/Other Unknown family medical history Father Hypertension Mother Unknown family medical history Brother No problems noted. Sister No problems noted. Social History Social History Household Members: Unknown / Unable to assess Household Members Other:: Resides in [facility] Housing: Other Housing Other:: senior living Are you a primary before and after school daycare worker to a significant other at home: No Unable to assess alcohol history related to: Unable to respond and Unknown Alcohol intake: former Comment: 1:1 sitter Patient Tobacco Use Status: Never used Tobacco Smoked in Last 30 Days: No e-Cigarette/Vaping Use: Never Used Second Hand Smoke Exposure: No Use of substances other than those prescribed or required for medical reasons: No Advance Directives: Yes Advance Directives on File: Yes Advance Directives Date on File: 11/28/20 service: No Current occupational status: disabled Cognitive needs: Yes Hearing needs: No Vision needs: No Physical Exam ED Vital Signs: Vital Signs - 24 hr 02/06/23 17:57 02/06/23 21:17 Temperature 98.0 F Pulse Rate 88 69 Respiratory Rate 18 14 Blood Pressure 112/63 109/64 Pulse Oximetry 98 98 Oxygen Delivery Method Room Air Room Air BMI result Body Mass Index 16.2 Const General: cooperative, healthy appearing and no acute distress Orientation/consciousness: patient oriented x3 Limitations: no limitations HENMT Head: Yes normal to inspection and Yes atraumatic Ears: hearing grossly normal bilaterally General nose exam: Normal external nose present Face and sinus: Yes normal facial exam Eyes General: appearance normal, both eyes and all related structures EOM: EOMs intact bilaterally Neck Neck: Yes normal visual inspection and Yes no meningeal signs Resp Effort & Inspection: normal respiratory effort and no respiratory distress Cardio Rate: regular rate Peripheral pulses: radial pulses present and ulnar radial pulses present Skin Rashes: no rashes Wounds: no wounds Neuro General: patient oriented x3, tone normal and no meningeal signs Cranial nerves: Yes CN's II-XII intact bilaterally Gait exam (Neuro): Normal gait present Extrem Other: Left shoulder without noted deformity. Mild swelling and healing ecchymosis to proximal humerus with tenderness extending to mid humerus. Elbow nontender. Extension at elbow mildly limited 2/2 pain. Neurovascular intact distally. No appreciable pitting edema/crepitus. Compartments soft. No erythema/warmth. Course Course Course Narrative: XR shoulder LT min 2V IMPRESSION: Similar appearance of transverse fracture through the left humeral neck as well as inferior medial displacement of the humeral head in relation to the glenoid fossa, increased from prior imaging. US venous duplex UE LT IMPRESSION: No DVT demonstrated in the left upper extremity. Results discussed with patient including worrisome signs and symptoms and strict return precautions, and when to return to the emergency department. They verbalized understanding and feel safe for discharge at this time. Medications Administered Discontinued Medications Generic Name Dose Route Start Last Admin Trade Name Freq PRN Reason Stop Dose Admin Ketorolac Tromethamine 30 mg 02/06/23 18:00 02/06/23 18:13 Ketorolac Tromethamine 30 Mg/Ml Vial IM 02/06/23 18:01 30 mg ONCE ONE Administration Medical Decision Making Medical Decision Making MDM Narrative: 67-year-old male history of recent UTI, schizophrenia, COPD, pneumonia, depression, asthma, dysphagia, mild encephalopathy, left humeral fracture 01/23/23, presenting to ED from retirement via EMS c/o left shoulder pain and increased swelling per staff. On exam vital signs stable, NAD, nontoxic appearing, physical exam as noted above. Concern for continued pain due to known fracture vs possible DVT. No evidence of septic joint/arthritis or arterial compromise. Low suspicion for compartment syndrome Plan: shoulder x-ray, venous duplex ultrasound Please refer to course for remaining clinical decision making, interpretation of labs/imaging results, and discussions with consultants and/or family members. Differential Diagnosis Differential Diagnoses: The differential diagnosis associated with the presentation includes As above Independent Interpretation I performed an independent interpretation of an: EKG (My interpretation EKG normal sinus rhythm with sinus arrhythmia rate of 80. QTC 435. No STEMI), Plain X-Ray and Ultrasound Radiology Impression Discussion of test interpretation with radiology: I have reviewed the radiologist's reading. Independent Historian Clinical information obtained from an independent historian. History obtained from or confirmed by: EMS External Record Review External record reviewed: Inpatient record, Office record, Outpatient record, Prior outpatient labs, Prior outpatient radiology, Primary care record and Outside ED record Tests considered The following testing was considered but not selected: As above Prescription Management I considered prescription management with: Pain Medication Chronic Conditions Patient?s care impacted by: Other Social Determinants Patient?s care significantly limited by Social Determinants of Health including: Problems related to primary support group, Unemployment and Other Social Determinant of Health Discharge Plan Discharge Clinical Impression: Fracture of neck of left humerus with delayed healing Patient Disposition: Home, Self-Care Instructions: Arm Fracture in Adults (ED) Additional Instructions: Please continue to wear splint for comfort Your x-ray shows mild increased displacement of your fracture from previous imaging Please call orthopedics for close follow-up Please take Tylenol and naproxen for pain Ice painful area If symptoms persist or worsen her pain is unbearable return to the emergency department Prescriptions: New acetaminophen [Tylenol Extra Strength] 500 mg tablet 500 mg PO Q6H PRN (Reason: fever or pain) Qty: 14 0RF naproxen 500 mg tablet 500 mg PO BID PRN (Reason: pain) 10 Days Qty: 20 0RF No Action (DME) right AFO See Rx Instructions .Route .MEDSUPPLY Qty: 1 0RF Rx Instructions: As directed ondansetron HCl 8 mg tablet 8 mg PO BID PRN (Reason: nausea and vomiting) Qty: 20 0RF senna 8.6 mg capsule 17.2 mg PO BEDTIME Qty: 60 6RF Linzess 290 mcg capsule 290 mcg PO DAILY Qty: 30 3RF fluoxetine 20 mg capsule 40 mg PO DAILY lorazepam 0.5 mg tablet 0.5 mg PO BEDTIME polyethylene glycol 3350 17 gram/dose powder 17 g PO DAILY PRN (Reason: Constipation) Liquid C 500 mg/5 mL liquid 500 mg PO DAILY amoxicillin-pot clavulanate 875-125 mg tablet 1 tab PO BID Qty: 13 0RF ferrous sulfate 300 mg (60 mg iron)/5 mL Liquid 300 mg PO DAILY desmopressin 0.1 mg tablet 0.1 mg PO BID levothyroxine 25 mcg tablet 25 mcg PO DAILY@0600 Rx Instructions: Crush the pill omeprazole 20 mg capsule,delayed release(DR/EC) 20 mg PO BID@0630,1630 Triple Paste 12.8 % ointment 1 appl topical DAILY Protocol: Apply to: Apply to: use with dressing chnage levofloxacin 750 mg tablet 750 mg PO DAILY Qty: 6 0RF (DME) pull ups small See Rx Instructions .Route .MEDSUPPLY Qty: 100 11RF Rx Instructions: As directed clozapine 100 mg tablet 200 mg PO BEDTIME clozapine 25 mg tablet 50 mg PO BID (DME) blood pressure monitor [Blood Pressure Kit] Kit See Rx Instructions .ROUTE .MEDSUPPLY Qty: 1 0RF Rx Instructions: As directed pediatric cuff acetaminophen [Children's Acetaminophen] 160 mg/5 mL liquid 640 mg PO Q6H PRN (Reason: Pain) (DME) compressor, for nebulizer Device See Rx Instructions .Route Qty: 1 0RF Rx Instructions: As directed Referrals: [facility] [place] Orthopedic Surgeons [Provider Group] Interventions: ED Discharge Assessment Last Done: 02/06/23 22:37 Discharge Date/Time: 02/06/23 23:48
[2023-02-06 17:55] VITALS: BP 110/68; PULSE 87; O2SAT 97
[2023-02-06 17:57] VITALS: BP 112/63; PULSE 88; RESP 18; O2SAT 98; BMI 16.2
--- NOTE | 2023-02-06 18:07 | ECG_ITS ---
Test Reason : L SHOULDER PAIN Blood Pressure : / mmHG Vent. Rate : 080 BPM Atrial Rate : 080 BPM P-R Int : 176 ms QRS Dur : 074 ms QT Int : 378 ms P-R-T Axes : 044 013 049 degrees QTc Int : 435 ms Normal sinus rhythm with sinus arrhythmia Normal ECG When compared with ECG of 04-FEB-2023 14:50, No significant change was found Referred By: Bethany Davis Electronically Signed By:Cruzito Ross
[2023-02-06] MEDS: Ketorolac Tromethamine 30 MG/ML VIAL IM (18:13)
[2023-02-06 21:17] VITALS: BP 109/64; PULSE 69; RESP 14; TEMP 36.7; O2SAT 98
--- NOTE | 2023-02-06 22:36 | PC.NURSE ---
alf called to give update on patient status. ambulance to be booked to have patient return home. they are aware.
== END 2023-02-06 23:48 | disposition home or self-care (01) ==
PROVIDERS: Emergency Provider Emergency Medicine
DX: M25.512 Pain in left shoulder (principal); M79.89 Other specified soft tissue disorders; S42.202G Unspecified fracture of upper end of left humerus, subsequent encounter for fracture with delayed healing; X58.XXXD Exposure to other specified factors, subsequent encounter
CPT/HCPCS: 73030; 93005; 93971; 96372; 99284; J1885

== ENCOUNTER → 2023-02-06 18:07 | Outpatient (BNV) | payer MEDICARE, MEDICAID, SELFPAY | PROVIDERS: Emergency Provider Emergency Medicine; Visit Provider Internal Medicine Cardiovascular Disease | DX: I49.8 Other specified cardiac arrhythmias (principal) | CPT/HCPCS: 93010 ==

== ENCOUNTER 2023-02-17 14:25 | Outpatient (AMB) | payer MEDICARE, MEDICAID, SELFPAY ==
[2023-02-17 14:29] VITALS: BP 120/84; PULSE 79; O2SAT 99; BMI 16.8
--- NOTE | 2023-02-17 14:29 | MHC.PC.OV ---
Vital Signs 02/17/23 14:29 Height 5 ft 9 in Weight 51.71 kg BMI 16.8 BP 120/84 Blood Pressure Location Lt brachial Position Sitting Pulse 79 Pulse Source Pulse Oximeter Pulse Oximetry (%) 99 Oxygen Delivery Method Room Air Intake Visit Reasons: [facility] [place] 02/06-02/07 Fracture Rubber Worker Required: No Seed Pelleter: Not Required per policy Accompanied by: Self / Same As Patient Allergies clindamycin Allergy (Unknown, Verified 02/17/23 14:29) Unknown Sulfa (Sulfonamide Antibiotics) [SULFA(SULFONAMIDE ANTIBIOTICS)] Allergy (Unknown, Verified 02/17/23 14:29) UNKNOWN sulfamethoxazole [From Bactrim] Allergy (Unknown, Verified 02/17/23 14:29) Unknown trimethoprim [From Bactrim] Allergy (Unknown, Verified 02/17/23 14:29) Unknown Medication List - Last Reconciled 02/17/23 by LOWELL Tsai acetaminophen (Tylenol Extra Strength) 500 mg PO Q6H PRN acetaminophen (Children's Acetaminophen) 640 mg (20 mL) PO Q6H PRN ascorbic acid (vitamin C) (Liquid C) 500 mg PO DAILY blood pressure monitor (Blood Pressure Kit) As directed pediatric cuff clozapine 200 mg PO BEDTIME clozapine 50 mg PO BID compressor, for nebulizer As directed desmopressin 0.1 mg PO BID ferrous sulfate 300 mg PO DAILY fluoxetine 40 mg PO DAILY levothyroxine 25 mcg PO DAILY@0600 linaclotide (Linzess) 290 mcg PO DAILY lorazepam 0.5 mg PO BEDTIME naproxen 500 mg PO BID PRN 10 days omeprazole 20 mg PO BID ondansetron HCl 8 mg PO BID PRN polyethylene glycol 3350 17 grams PO DAILY PRN [pull ups small As directed] [right AFO As directed] sennosides (senna) 17.2 mg (2 x 8.6 mg) PO BEDTIME zinc oxide 12.8% (Triple Paste) 1 appl See Protocol topical DAILY Tobacco use date assessed: 09/03/22 Fall risk assessment: 1 Fall in past year Last assessed Fall Risk: 02/17/23 Dental Screening Dental Screen Date: 02/17/23 Did you have a dental visit in the last 12 months?: Yes Did you have a dental problem in the last 6 months where you did not have access to dental care?: No Was dental information given to patient?: Patient has dentist HPI HPI Comments History of Present Illness Details 67-year-old male with history of hypothyroidism, chronic constipation, GERD, schizoaffective disorder presents to the office today with prison staff, [place], for post hospital discharge follow-up. Discharge medications reviewed and reconciled. The patient is unable to provide much history and history is obtained from prison staff as well as hospital documentation. The patient was admitted to [facility] from 01/30-01/31 due to altered mental status and foul-smelling urine. On arrival, he was febrile to 100.9 with leukocytosis of 11.9, neutrophil predominance of 88%. He was also slightly hypernatremic at 148. Urinalysis was significant with nitroyria and pyuria and he was started on IV ceftriaxone and admitted for further management. Urine culture grew E coli ESBL which was noted to be sensitive to Levaquin and antibiotic therapy was adjusted. Mentation did improve following antibiotic therapy and he was discharged on 6 additional days of Levaquin for a total duration of therapy of 7 days. Hypernatremia resolved with oral intake. He had also been previously seen in the ED on 01/23 following a fall and had sustained left humerus fracture. Ortho had been consulted at that time and he did not require any surgical intervention. Recommended using sling but removing for range of motion Ed follow-up in the clinic in 6 weeks with repeat films. He was discharged back to prison. Per prison staff, the patient mentation has returned to baseline and there has been no further followed smelling urine. His gait has been steady and no further falls. He is ambulating without any assistive device. Has follow-up scheduled with Orthopedic surgery. 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 Paraparesis Metabolic encephalopathy COVID-19 Adult failure to thrive MVP (mitral valve prolapse) Mentally challenged Anxiety GERD (gastroesophageal reflux disease) Impaired glucose tolerance Tracheomalacia Schizophrenia Tubular adenoma of colon COPD (chronic obstructive pulmonary disease) Pneumonia Anemia Hypothyroid Depression Asthma Oropharyngeal dysphagia Surgical History History of bronchoscopy History of colonoscopy S/P tracheoplasty History of esophagogastroduodenoscopy (EGD) Family History Family/Other Unknown family medical history Father Hypertension Mother Unknown family medical history Brother No problems noted. Sister No problems noted. Social History Household Members: Unknown / Unable to assess Household Members Other:: Resides in Detention Housing: Other Housing Other:: senior care Are you a primary critical care specialist to a significant other at home: No Unable to assess alcohol history related to: Unable to respond and Unknown Alcohol intake: former Comment: 1:1 sitter Patient Tobacco Use Status: Never used Tobacco e-Cigarette/Vaping Use: Never Used Second Hand Smoke Exposure: No Advance Directives Date on File: 11/28/20 service: No Current occupational status: disabled Cognitive needs: Yes Hearing needs: No Vision needs: No Questionnaire Thrive Questionnaire Date Thrive assessed: 01/29/23 OSORIO-7 AMB Questionnaire OSORIO-7 Date OSORIO - 7 assessed: 09/03/22 Source: Developed by Drs. Anthony Lyle, Adriana Ji, Gunner Snider and colleagues, with an educational jia from [employer]. Review of Systems Const Unobtainable due to mental status Physical exam (Primary Care) Vital Signs: Last Vital Signs Pulse 79 02/17/23 14:29 BP 120/84 02/17/23 14:29 Pulse Ox 99 02/17/23 14:29 Oxygen Delivery Method Room Air 02/17/23 14:29 BMI result Body Mass Index 16.8 Tobacco/Smoking Status: Tobacco use Status Tobacco use date assessed 09/03/22 02/17/23 14:31 Patient Tobacco Use Status Never used Tobacco 02/17/23 14:31 e-Cigarette/Vaping Use Never Used 02/17/23 14:31 Thrive Assessment: Date of Thrive Assessment Date Thrive assessed 01/29/23 02/17/23 14:31 Const Other: Constitutional - Awake and Alert, No apparent distress Eyes - PERRLA, EOMI Cardiovascular - S1S2, RRR, No edema Respiratory - Normal lung expansion, Normal respiratory effort, No respiratory distress, CTA bilaterally Musculoskeletal - LLE immbolized in sling Skin - Warm/Dry Neurological - Alert, mostly nonverbal, following commands. 5/5 tire servicer strength Psychological - Appropriate affect Results Reviewed Results Reviewed: UA/UC, CBC, BMP, H and P, discharge summary, x-ray left humerus/shoulder Assessment and Plan Assessment & Plan (1) UTI due to extended-spectrum beta lactamase (ESBL) producing Escherichia coli: Code(s): N39.0 - Urinary tract infection, site not specified; B96.29 - Other Escherichia coli [E. coli] as the cause of diseases classified elsewhere; Z16.12 - Extended spectrum beta lactamase (ESBL) resistance Plan: UC reviewed, ESBL ecoli sensitive to Levaquin. Completed 7 day course of Levaquin with resolution of symptoms. Resolved. (2) Closed fracture of left proximal humerus: Code(s): S42.202A - Unspecified fracture of upper end of left humerus, initial encounter for closed fracture Qualifiers: Encounter type: initial encounter Fracture morphology: other fracture Fracture alignment: nondisplaced Qualified Code(s): S42.295A - Other nondisplaced fracture of upper end of left humerus, initial encounter for closed fracture Plan: Sensation and strength appear to be intact. Continue with recommendations from Orthopedic surgery including immobilization for comfort except for [id number] exercises. Continue with Tylenol as needed for pain management follow-up with Orthopedic surgery as scheduled for reexamination and repeat imaging. (3) Altered mental status: Code(s): R41.82 - Altered mental status, unspecified Plan: Acute metabolic encephalopathy secondary to urinary tract infection. Resolved with antibiotic therapy. Mentation baseline per prison staff. Continue monitoring for any alteration in mental status that could indicate reinfection Medications: New acetaminophen (Children's Acetaminophen) 640 mg (20 mL) PO Q6H PRN 473 mL 1RF Pain Discontinued levofloxacin Discontinued Reason: Doctor's Order 750 mg PO DAILY 6 tabs 0RF amoxicillin-pot clavulanate 875-125 mg Discontinued Reason: Doctor's Order 1 tab PO BID 13 tabs 0RF Coding Level of Care Code Est Pt Level 4 (51873) Diagnoses UTI due to extended-spectrum beta lactamase (ESBL) producing Escherichia coli N39.0; B96.29; Z16.12 Other closed nondisplaced fracture of proximal end of left humerus, initial encounter S42.295A Encounter type: initial encounter Fracture morphology: other fracture Fracture alignment: nondisplaced Altered mental status R41.82 Time Spent (min) 30
== END 2023-02-17 14:56 | disposition home or self-care (01) ==
PROVIDERS: PCP Internal Medicine; Visit Provider Physician Assistant
DX: N39.0 Urinary tract infection, site not specified (principal); B96.29 Other Escherichia coli [E. coli] as the cause of diseases classified elsewhere; Z16.12 Extended spectrum beta lactamase (ESBL) resistance; S42.295A Other nondisplaced fracture of upper end of left humerus, initial encounter for closed fracture; R41.82 Altered mental status, unspecified
CPT/HCPCS: 99214

== ENCOUNTER 2023-03-11 11:33 | Outpatient (AMB) | payer MEDICARE, MEDICAID, SELFPAY ==
--- NOTE | 2023-03-11 11:41 | A.OFFVIS_ITS ---
Intake Intake Visit Reasons: BPH/without urinary tract symptoms Intake Note: Patient presents today for evaluation: BPH Meds- None Allergies to Antibiotic- Sulfa, clindamycin, trimethoprim. Blood Thinner- None Post Void Residual: 0 mL Manager Office Services Required: No Accompanied by: [facility] Staff Allergies clindamycin Allergy (Unknown, Verified 03/17/23 12:42) Unknown Sulfa (Sulfonamide Antibiotics) [SULFA(SULFONAMIDE ANTIBIOTICS)] Allergy (Unknown, Verified 03/17/23 12:42) UNKNOWN sulfamethoxazole [From Bactrim] Allergy (Unknown, Verified 03/17/23 12:42) Unknown trimethoprim [From Bactrim] Allergy (Unknown, Verified 03/17/23 12:42) Unknown HPI HPI Comments History of Present Illness Details Dagoberto is a 67-year-old male with history of hypothyroidism, chronic constipation, GERD, schizoaffective disorder presents to the office today from a senior care. The patient was hospitalized a few weeks ago and treated for UTI. The patient is unable to provide much history and history is obtained from senior care staff as well as hospital documentation. The patient was admitted to [facility] from 01/30-01/31 due to altered mental status and foul- smelling urine. Urine culture grew E coli ESBL which was noted to be sensitive to Levaquin and antibiotic therapy was adjusted. Mentation did improve following antibiotic therapy and he was discharged on 6 additional days of Levaquin for a total duration of therapy of 7 days. He had also been previously seen in the ED on 01/23 following a fall and had sustained left humerus fracture. Ortho had been consulted at that time and he did not require any surgical intervention. Recommended using sling but removing for range of motion Ed follow-up in the clinic in 6 weeks with repeat films. He was discharged back to senior care. Per senior care staff, the patient mentation has returned to baseline and there has been no further followed smelling urine. Bladder scan PVR 0 mL Review of chart: Renal US - 12/03/22- No hydronephrosis. No renal calculi. Enlarged prostate with volume 84 mL and postvoid bladder volume 17.8 mm Diffuse irregularity and trabeculation thickening of the bladder wall as well as a 1.1 cm bladder diverticulum. 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 Paraparesis Metabolic encephalopathy COVID-19 Adult failure to thrive MVP (mitral valve prolapse) Mentally challenged Anxiety GERD (gastroesophageal reflux disease) Impaired glucose tolerance Tracheomalacia Schizophrenia Tubular adenoma of colon COPD (chronic obstructive pulmonary disease) Pneumonia Anemia Hypothyroid Depression Asthma Oropharyngeal dysphagia Surgical History History of bronchoscopy History of colonoscopy S/P tracheoplasty History of esophagogastroduodenoscopy (EGD) Family History Family/Other Unknown family medical history Father Hypertension Mother Unknown family medical history Brother No problems noted. Sister No problems noted. Social History Household Members: Unknown / Unable to assess Household Members Other:: Resides in Skilled Nursing Housing: Other Housing Other:: senior living Are you a primary manager critical care to a significant other at home: No Unable to assess alcohol history related to: Unable to respond and Unknown Alcohol intake: former Comment: 1:1 sitter Patient Tobacco Use Status: Never used Tobacco e-Cigarette/Vaping Use: Never Used Second Hand Smoke Exposure: No Advance Directives Date on File: 11/28/20 service: No Current occupational status: disabled Cognitive needs: Yes Hearing needs: No Vision needs: No Review of Systems Const All systems reviewed & are unremarkable except as noted in HPI and below Reports no additional complaints Eyes Reports no additional complaints ENT Reports no additional complaints Card Denies dyspnea Resp Denies cough and Denies dyspnea GI Reports no additional complaints Musc Reports no additional complaints Skin/Breast Denies rash and Denies unusual bruising Neuro Reports no additional complaints Psych Reports no additional complaints Endo Reports no additional complaints João/Lymph Reports no additional complaints Aller/Immun Reports no additional complaints Physical Exam Const General: healthy appearing and no acute distress Orientation/consciousness: patient oriented x3 HEENT Head: Yes normocephalic and Yes atraumatic Eyes Conjunctivae: conjunctivae normal Neck Neck: Yes normal visual inspection Chest Chest palpation & inspection: normal inspection of the chest Resp Effort & Inspection: normal respiratory effort Cardio Rate: regular rate GI Inspection: Yes normal to inspection Skin General skin exam: no rashes or lesions noted Neuro General: patient oriented x3 Psych Appearance: grossly normal Affect: normal affect Office Procedures Post Void Residual Post Residual Void Post Void Residual (PVR): 0 [id number] Void Residual by ultrasound Results AMB Urinalysis, Automated UA Leukoctes 15 Twyla/uL Last Edit by CODY Trivedi on 03/11/23 12:01 UA Nitrite Negative Last Edit by CODY Trivedi on 03/11/23 12:01 UA Urobilinogen 0.2 mg/dL Last Edit by CODY Trivedi on 03/11/23 12:0 1 UA Protein 30 mg/dL Last Edit by CODY Trivedi on 03/11/23 12:01 1+ Maxwell Nieto 03/11/23 12:01 UA pH 5.5 Last Edit by CODY Trivedi on 03/11/23 12:01 UA Blood 0 Josh/uL Last Edit by CODY Trivedi on 03/11/23 12:01 UA Specific [place] 1.030 Last Edit by CODY Trivedi on 03/11/23 12: 01 UA Ketone Positive Last Edit by CODY Trivedi on 03/11/23 12:05 5 mg/dL UA Ketone previously reported as Negative Maxwell Nieto 03/11/23 12:05 UA Bilirubin 0 mg/dL Last Edit by CODY Trivedi on 03/11/23 12:01 UA Glucose 0 mg/dL Last Edit by CODY Trivedi on 03/11/23 12:05 Results Reviewed Results Reviewed: Laboratory Last Values Urine pH (Auto) 5.5 03/11/23 12:00 Specific [place] (Auto) 1.030 03/11/23 12:00 Urine Protein (Auto) 30 mg/dL 03/11/23 12:00 Glucose (UA)(Auto) 0 mg/dL 03/11/23 12:00 Urine Ketones (Auto) Positive 03/11/23 12:00 Urine Blood (Auto) 0 Josh/uL 03/11/23 12:00 Urine Nitrite (Auto) Negative 03/11/23 12:00 Urine Bilirubin (Auto) 0 mg/dL 03/11/23 12:00 Urine Urobilinogen (Auto) 0.2 mg/dL 03/11/23 12:00 Leukocyte Esterase (Auto) 15 Twyla/uL 03/11/23 12:00 Collected: 01/28/23-UNK Status: COMP Req#: [id number] Received: 01/28/23 Source: [facility] Sp Desc: Urine gurrola Subm Dr: Odin Duncan Ordered: Urine Culture Procedure Result Verified Urine Culture Final 01/30/23 Organism 1 Escherichia coli Quant > 100,000 cfu/mL ESBL Note: NOTE: Extended-Spectrum Beta-Lactamase enzyme present E coli M.I.C. RX --------- --- Ampicillin >=32 R Ceftriaxone 8 R Ertapenem <=0.12 S Gentamicin <=1 S Levofloxacin <=0.12 S Nitrofurantoin <=16 S Trimethoprim/Sulfamethoxazole <=20 S Date of Service: 12/03/22 EXAMINATION: US RETROPERITONEAL COMPLETE (RENAL) CLINICAL INFORMATION: Urinary tract infection, site not specified. COMPARISON: X-ray [facility] 10/11/2021 and 08/27/2015. CT abdomen and pelvis 08/17/2021. TECHNIQUE: Real-time imaging of the kidneys and bladder. Limited visualization due to bowel gas. FINDINGS: RIGHT KIDNEY: 10.0 x 3.5 x 4.5 cm (SAG x AP x TRV). No hydronephrosis. No renal calculi. Limited visualization. Renal cortical thickness is normal. 0.8 cm lower pole cyst is simple. There is no indication for followup imaging. LEFT KIDNEY: 9.8 x 4.1 x 4.2 cm (SAG x AP x TRV). No hydronephrosis. No renal calculi. Renal cortical thickness is normal. Limited visualization. BLADDER: Well distended. Diffuse irregularity and thickening with trabeculation. Bladder wall. Prevoid bladder diverticulum and measures 0.9 x 1.1 x 1.0 cm Bilateral ureteral jets are not demonstrated. Prevoid bladder volume is 132 mL. Postvoid bladder volume is 17.8 mL. ADDITIONAL FINDINGS: Prostate enlarged with volume 84 mL. IMPRESSION: 1. No hydronephrosis. No renal calculi. 2. Enlarged prostate with volume 84 mL and postvoid bladder volume 17.8 mm 3. Diffuse irregularity and trabeculation thickening of the bladder wall as well as a 1.1 cm bladder diverticulum. Assessment & Plan Assessment & Plan (1) UTI (urinary tract infection): Code(s): N39.0 - Urinary tract infection, site not specified (2) BPH (benign prostatic hyperplasia): Code(s): N40.0 - Benign prostatic hyperplasia without lower urinary tract symptoms (3) UTI due to extended-spectrum beta lactamase (ESBL) producing Escherichia coli: Code(s): N39.0 - Urinary tract infection, site not specified; B96.29 - Other Escherichia coli [E. coli] as the cause of diseases classified elsewhere; Z16.12 - Extended spectrum beta lactamase (ESBL) resistance (4) Bladder wall thickening: Code(s): N32.89 - Other specified disorders of bladder Plan flomax 0.4 mg daily proscar 5 mg daily, fu for office cysto Orders: Orders AMB Urinalysis Automated 03/11/23 Z13.9 - Encounter for screening, unspecified AMB Post Void Residual by ultrasound 03/11/23 N39.8 - Other specified disorders of urinary system Coding Level of Care Code New Pt Level 4 (54420) Diagnoses UTI (urinary tract infection) N39.0 BPH (benign prostatic hyperplasia) N40.0 UTI due to extended-spectrum beta lactamase (ESBL) producing Escherichia coli N39.0; B96.29; Z16.12 Bladder wall thickening N32.89 CPT Codes Post Residual Void - PVR CPT Code: 15166-Elsf Void Residual by ultrasound ([id number])
== END 2023-03-11 12:19 | disposition home or self-care (01) ==
PROVIDERS: PCP Internal Medicine; Visit Provider Urology
DX: N39.0 Urinary tract infection, site not specified (principal); N40.0 Benign prostatic hyperplasia without lower urinary tract symptoms; B96.29 Other Escherichia coli [E. coli] as the cause of diseases classified elsewhere; Z16.12 Extended spectrum beta lactamase (ESBL) resistance; N32.89 Other specified disorders of bladder
CPT/HCPCS: 99204

== ENCOUNTER → 2023-03-11 11:33 | Outpatient (BNVA) | payer MEDICARE, MEDICAID, SELFPAY | PROVIDERS: PCP Internal Medicine; Visit Provider Urology | DX: N40.0 Benign prostatic hyperplasia without lower urinary tract symptoms (principal); N39.0 Urinary tract infection, site not specified; N32.89 Other specified disorders of bladder; B96.29 Other Escherichia coli [E. coli] as the cause of diseases classified elsewhere; Z16.12 Extended spectrum beta lactamase (ESBL) resistance | CPT/HCPCS: 51798; 81003; 99202 ==

== ENCOUNTER 2023-03-17 12:31 | Outpatient (AMB) | payer MEDICARE, MEDICAID, SELFPAY ==
[2023-03-17 12:37] VITALS: BMI 16.8
--- NOTE | 2023-03-17 12:37 | MHC.OFFVIS ---
Intake Vital Signs 03/17/23 12:37 Height 5 ft 9 in Weight 114 lb BMI 16.8 Intake Visit Reasons: OV-left prox hum fx w xrays-follow up Intake Note: Dagoberto mccarty 67 year old left hand dominant male presents today for a follow up of left humeral fx, DOI 01/23/23. Xrays updated while in office. Patient reports he has on and off pain still. Reports he has not started P.T due to no one reaching out to him. Allergies clindamycin Allergy (Unknown, Verified 03/17/23 12:42) Unknown Sulfa (Sulfonamide Antibiotics) [SULFA(SULFONAMIDE ANTIBIOTICS)] Allergy (Unknown, Verified 03/17/23 12:42) UNKNOWN sulfamethoxazole [From Bactrim] Allergy (Unknown, Verified 03/17/23 12:42) Unknown trimethoprim [From Bactrim] Allergy (Unknown, Verified 03/17/23 12:42) Unknown HPI OV-left prox hum fx w xrays-follow up HPI Details 67-year-old left hand dominant male who returns to the office today for a follow-up of left shoulder fracture, 01/23/23. He states he continues to intermittent pain in his shoulder. He has not yet started with physical therapy due to no one reaching out to him. He has no other concerns today. 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 Paraparesis Metabolic encephalopathy COVID-19 Adult failure to thrive MVP (mitral valve prolapse) Mentally challenged Anxiety GERD (gastroesophageal reflux disease) Impaired glucose tolerance Tracheomalacia Schizophrenia Tubular adenoma of colon COPD (chronic obstructive pulmonary disease) Pneumonia Anemia Hypothyroid Depression Asthma Oropharyngeal dysphagia Surgical History History of bronchoscopy History of colonoscopy S/P tracheoplasty History of esophagogastroduodenoscopy (EGD) Family History Family/Other Unknown family medical history Father Hypertension Mother Unknown family medical history Brother No problems noted. Sister No problems noted. Social History Household Members: Unknown / Unable to assess Household Members Other:: Resides in Intermediate Housing: Other Housing Other:: [facility] Are you a primary health care aide to a significant other at home: No Unable to assess alcohol history related to: Unable to respond and Unknown Alcohol intake: former Comment: 1:1 sitter Patient Tobacco Use Status: Never used Tobacco e-Cigarette/Vaping Use: Never Used Second Hand Smoke Exposure: No Advance Directives Date on File: 11/28/20 service: No Current occupational status: disabled Cognitive needs: Yes Hearing needs: No Vision needs: No Review of Systems Const All systems reviewed & are unremarkable except as noted in HPI and below Physical Exam Vital Signs: BMI result Body Mass Index 16.8 Const General: cooperative and no acute distress Orientation/consciousness: patient oriented x3 Resp Effort & Inspection: normal respiratory effort and able to speak in complete sentences Cardio Peripheral pulses: Peripheral pulses 2+ throughout Neuro General: patient oriented x3 Extrem Other: Left shoulder: Normal to inspection.No Swelling . Trace tenderness over the proximal humerus. Anterior deltoid sensation intact. Elbow and wrist ROM intact. NVI. Results Reviewed Results Reviewed: Xrays were obtained in the office today and personally reviewed by me of the left shoulder significant for proximal humerus fracture with stable alignment and interval healing Assessment & Plan Assessment & Plan (1) Closed fracture of left proximal humerus: Code(s): S42.202A - Unspecified fracture of upper end of left humerus, initial encounter for closed fracture Qualifiers: Encounter type: subsequent encounter Fracture alignment: nondisplaced Fracture morphology: other fracture Fracture healing: with routine healing Qualified Code(s): S42.295D - Other nondisplaced fracture of upper end of left humerus, subsequent encounter for fracture with routine healing Plan He will work with physical therapy to begin strength training and scapular stabilization. He can increase activity as tolerated and see us back in 6 weeks with new x-rays, sooner if needed. Orders: Orders XR shoulder LT min 2V Today M25.512 - Pain in left shoulder Patient Instructions: Scribed for Frandy Bowman PA-C, by Todd Sotomayor medical reception specialist, on 03/17/2023 at 12:45 PM EST. IFrandy PA-C, have personally reviewed and agree with the information entered by the scribe. Coding Level of Care Code Global (11440) Diagnoses Other closed nondisplaced fracture of proximal end of left humerus with routine healing, subsequent encounter S42.295D Encounter type: subsequent encounter Fracture alignment: nondisplaced Fracture morphology: other fracture Fracture healing: with routine healing
== END 2023-03-17 13:00 | disposition home or self-care (01) ==
PROVIDERS: PCP Internal Medicine; Visit Provider Physician Assistant
DX: S42.295D Other nondisplaced fracture of upper end of left humerus, subsequent encounter for fracture with routine healing (principal)
CPT/HCPCS: 99213

== ENCOUNTER 2023-03-17 13:41 | Outpatient (REF) | payer MEDICARE, MEDICAID, SELFPAY ==
--- NOTE | ~2023-03-17 | XR_ITS ---
EXAMINATION: XR SHOULDER, LEFT CLINICAL INFORMATION: Pain. COMPARISON: Prior radiographs, most recently 02/06/2023. TECHNIQUE: AP neutral, scapular Y, and axillary views of the left shoulder. FINDINGS: There is bony demineralization. A transverse impacted fracture is redemonstrated of the left humeral neck, in stable alignment. There is copious interim periosteal callus formation noted. The glenohumeral joint remains intact. The acromioclavicular and coracoclavicular intervals are normal. No soft tissue calcification or foreign body is seen. There is no left pneumothorax. XR/XR shoulder LT min 2V IMPRESSION: There is stable alignment of a impacted transverse fracture of the left humeral neck. There is very good periosteal callus formation noted.
== END 2023-03-17 13:42 | disposition home or self-care (01) ==
LOC: HO.HOSX 13:41
PROVIDERS: Visit Provider Physician Assistant
DX: S42.295D Other nondisplaced fracture of upper end of left humerus, subsequent encounter for fracture with routine healing (principal)
CPT/HCPCS: 73030; 99212

== ENCOUNTER 2023-04-28 06:38 | Outpatient (REF) | payer MEDICARE, MEDICAID, SELFPAY ==
--- NOTE | ~2023-04-28 | XR_ITS ---
EXAMINATION: XR SHOULDER, LEFT CLINICAL INFORMATION: Pain in left shoulder COMPARISON: Left shoulder 03/17/2023 TECHNIQUE: AP external rotation, Grashey, scapular Y, and axillary views of the left shoulder. FINDINGS: There is bony demineralization. A transverse impacted fracture is redemonstrated of the left humeral neck, stable in alignment.. There is copious interim periosteal callus formation noted. The glenohumeral joint remains intact. The acromioclavicular joint and coracoclavicular intervals are normal. No soft tissue calcification or foreign body is seen. There is no left pneumothorax. XR/XR shoulder LT min 2V IMPRESSION: Stable alignment of an impacted transverse fracture of the left humeral neck. Very good periosteal callus formation is noted.
== END 2023-04-28 06:39 | disposition home or self-care (01) ==
LOC: HO.HOSX 06:38
PROVIDERS: Visit Provider Physician Assistant
DX: M25.512 Pain in left shoulder (principal); S42.295D Other nondisplaced fracture of upper end of left humerus, subsequent encounter for fracture with routine healing; X58.XXXD Exposure to other specified factors, subsequent encounter
CPT/HCPCS: 73030; 99212

== ENCOUNTER 2023-04-28 12:34 | Outpatient (AMB) | payer MEDICARE, MEDICAID, SELFPAY ==
--- NOTE | 2023-04-28 12:41 | A.OFFVIS_ITS ---
Intake Intake Visit Reasons: OV-left prox hum fx w xrays-follow up Intake Note: Dagoberto a 67 year old left hand dominant male presents today for a follow up of left humeral fx, DOI 01/23/23. Patient reports that his pain is improving. Allergies clindamycin Allergy (Unknown, Verified 04/29/23 11:47) Unknown Sulfa (Sulfonamide Antibiotics) [SULFA(SULFONAMIDE ANTIBIOTICS)] Allergy (Unknown, Verified 04/29/23 11:47) UNKNOWN sulfamethoxazole [From Bactrim] Allergy (Unknown, Verified 04/29/23 11:47) Unknown trimethoprim [From Bactrim] Allergy (Unknown, Verified 04/29/23 11:47) Unknown HPI OV-left prox hum fx w xrays-follow up HPI Details 67-year-old left hand dominant male who returns to the office today for a follow-up of left proximal humerus fracture, 01/23/23. He continues to have pain which has been improved since the last visit. He has not yet started with physical therapy. He has no other concerns today. 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 Paraparesis Metabolic encephalopathy COVID-19 Adult failure to thrive MVP (mitral valve prolapse) Mentally challenged Anxiety GERD (gastroesophageal reflux disease) Impaired glucose tolerance Tracheomalacia Schizophrenia Tubular adenoma of colon COPD (chronic obstructive pulmonary disease) Pneumonia Anemia Hypothyroid Depression Asthma Oropharyngeal dysphagia Surgical History History of bronchoscopy History of colonoscopy S/P tracheoplasty History of esophagogastroduodenoscopy (EGD) Family History Family/Other Unknown family medical history Father Hypertension Mother Unknown family medical history Brother No problems noted. Sister No problems noted. Social History Household Members: Unknown / Unable to assess Household Members Other:: Resides in Nursing Home Housing: Other Housing Other:: [facility] Are you a primary special needs caregiver to a significant other at home: No Unable to assess alcohol history related to: Unable to respond and Unknown Alcohol intake: former Comment: 1:1 sitter Patient Tobacco Use Status: Never used Tobacco e-Cigarette/Vaping Use: Never Used Second Hand Smoke Exposure: No Advance Directives Date on File: 11/28/20 service: No Current occupational status: disabled Cognitive needs: Yes Hearing needs: No Vision needs: No Review of Systems Const All systems reviewed & are unremarkable except as noted in HPI and below Physical Exam Extrem Other: Left shoulder: Normal to inspection. No tenderness over the proximal humerus. He can bring his hand over the top of his head. NVI. Results Reviewed Results Reviewed: Xrays were obtained in the office today and personally reviewed by me of the left shoulder significant for proximal humerus fracture with stable alignment and interval healing Assessment & Plan Assessment & Plan (1) Closed fracture of left proximal humerus: Code(s): S42.A - Unspecified fracture of upper end of left humerus, initial encounter for closed fracture Qualifiers: Encounter type: subsequent encounter Fracture alignment: nondisplaced Fracture healing: with routine healing Fracture morphology: other fracture Qualified Code(s): S42.295D - Other nondisplaced fracture of upper end of left humerus, subsequent encounter for fracture with routine healing Plan He will continue to increase activity as tolerated as long as he is pain free. If the pain arises or he has significant limitations, he can contact the office, otherwise follow-up as needed. Orders: Orders XR shoulder LT min 2V 04/28/23 M25.512 - Pain in left shoulder Patient Instructions: Scribed for Frandy Bowman PA-C, by Todd Sotomayor medical sonographer, on 04/28/2023 at 12:45 PM EST. I, Frandy Bowman PA-C, have personally reviewed and agree with the information entered by the scribe. Coding Level of Care Code Global (84266) Diagnoses Other closed nondisplaced fracture of proximal end of left humerus with routine healing, subsequent encounter S42.295D Encounter type: subsequent encounter Fracture alignment: nondisplaced Fracture healing: with routine healing Fracture morphology: other fracture
== END 2023-04-28 14:17 | disposition home or self-care (01) ==
PROVIDERS: PCP Internal Medicine; Visit Provider Physician Assistant
DX: S42.295D Other nondisplaced fracture of upper end of left humerus, subsequent encounter for fracture with routine healing (principal)
CPT/HCPCS: 99213

== ENCOUNTER 2023-04-29 10:26 | Outpatient (AMB) | payer MEDICARE, MEDICAID, SELFPAY ==
--- NOTE | 2023-04-29 10:40 | A.OFFVIS_ITS ---
Intake Intake Visit Reasons: cysto Intake Note: Patient presents today for a CYSTOSCOPY Procedure: Meds- Doxazosin Allergies to Antibiotic- Sulfa, clindamycin, trimethoprim. Blood Thinner- None Urinalysis test clear for Cysto? YES Disposable Uro-G Cystoscope Cannula: Lot: [id number] Exp: 07/05/2024 Manager Apple Required: No Accompanied by: Self / Same As Patient Allergies clindamycin Allergy (Unknown, Verified 04/29/23 11:47) Unknown Sulfa (Sulfonamide Antibiotics) [SULFA(SULFONAMIDE ANTIBIOTICS)] Allergy (Unknown, Verified 04/29/23 11:47) UNKNOWN sulfamethoxazole [From Bactrim] Allergy (Unknown, Verified 04/29/23 11:47) Unknown trimethoprim [From Bactrim] Allergy (Unknown, Verified 04/29/23 11:47) Unknown HPI HPI Comments History of Present Illness Details 04/29/2023--Dagoberto is here for office cyst oscopy. He was seen last on due to urinary symptoms of urgency and ESBL UTI. He was started on Proscar and Flomax. He previously had a Renal US - 12/03/22- kidneys were within normal limits. Enlarged prostate with volume 84 mL and postvoid bladder volume 17.8 mm Diffuse irregularity and trabeculation thickening of the bladder. wall as well as a 1.1 cm bladder diverticulum. Cystoscopy findings: Significant trabeculations multiple diverticuli and wide mouth diverticulum right lateral wall. Trilobar enlargement of the prostate. Plan will be to continue Proscar and Flomax. Review of chart: 03/11/23--Dagoberto is a 67-year-old male wi th history of hypothyroidism, chronic constipation, GERD, schizoaffective disorder presents to the office today from a skilled nursing. The patient was hospitalized a few weeks ago and treated for UTI. The patient is unable to provide much history and history is obtained from skilled nursing staff as well as hospital documentation. The patient was admitted to [facility] from 01/30-01/31 due to altered mental status and foul- smelling urine. Urine culture grew E coli ESBL which was noted to be sensitive to Levaquin and antibiotic therapy was adjusted. Mentation did improve following antibiotic therapy and he was discharged on 6 additional days of Levaquin for a total duration of therapy of 7 days. He had also been previously seen in the ED on 01/23 following a fall and had sustained left humerus fracture. Ortho had been consulted at that time and he did not require any surgical intervention. Recommended using sling but removing for range of motion Ed follow-up in the clinic in 6 weeks with repeat films. He was discharged back to skilled nursing. Per skilled nursing staff, the patient mentation has returned to baseline and there has been no further followed smelling urine. Bladder scan PVR 0 mL Review of chart: Renal US - 12/03/22- No hydronephrosis. No renal calculi. Enlarged prostate with volume 84 mL and postvoid bladder volume 17.8 mm Diffuse irregularity and trabeculation thickening of the bladder wall as well as a 1.1 cm bladder diverticulum. 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 Paraparesis Metabolic encephalopathy COVID-19 Adult failure to thrive MVP (mitral valve prolapse) Mentally challenged Anxiety GERD (gastroesophageal reflux disease) Impaired glucose tolerance Tracheomalacia Schizophrenia Tubular adenoma of colon COPD (chronic obstructive pulmonary disease) Pneumonia Anemia Hypothyroid Depression Asthma Oropharyngeal dysphagia Surgical History History of bronchoscopy History of colonoscopy S/P tracheoplasty History of esophagogastroduodenoscopy (EGD) Family History Family/Other Unknown family medical history Father Hypertension Mother Unknown family medical history Brother No problems noted. Sister No problems noted. Social History Household Members: Unknown / Unable to assess Household Members Other:: Resides in Half-Way Housing: Other Housing Other:: [facility]DC Are you a primary long term care phlebotomist to a significant other at home: No Unable to assess alcohol history related to: Unable to respond and Unknown Alcohol intake: former Comment: 1:1 sitter Patient Tobacco Use Status: Never used Tobacco e-Cigarette/Vaping Use: Never Used Second Hand Smoke Exposure: No Advance Directives Date on File: 11/28/20 service: No Current occupational status: disabled Cognitive needs: Yes Hearing needs: No Vision needs: No Review of Systems Const All systems reviewed & are unremarkable except as noted in HPI and below Reports no additional complaints Eyes Reports no additional complaints ENT Reports no additional complaints Card Denies dyspnea Resp Denies cough and Denies dyspnea GI Reports no additional complaints Musc Reports no additional complaints Skin/Breast Denies rash and Denies unusual bruising Neuro Reports no additional complaints Psych Reports no additional complaints Endo Reports no additional complaints João/Lymph Reports no additional complaints Aller/Immun Reports no additional complaints Office Procedures Cystoscopy Consent Discussed risk and benefit or proposed procedure with the patient. Information consent for procedure given to the patient. Discussed technical aspects, risks, benefits and alternatives in full. Addressed all of the patient's questions and concerns regarding the procedure. The patient demonstrated knowledge and understanding. They wish to proceed with this procedure. Preparation The patient was prepped in the usual manner. A cell attendant was present and in the room. Genitalia was prepped with betadine solution in a sterile manner. Lidocaine Jelly 2% was placed into the urethra and 16Fr flexible Olympus cystoscope was inserted into the meatus after adequate lubrication. Procedure Time out per protocol performed. Bladder Inspection Bladder Inspection: The bladder was inspected in its entirety with utilization retroflexion displaying: Tumor(s): none visualized Trabeculation: present Mucosal Erthema: N/A Orifices: normal shape and position Urethra: normal Cystoscopy findings: Significant trabeculations multiple diverticuli and wide mouth diverticulum right lateral wall. Trilobar enlargement of the prostate. No suspicious bladder lesions visualized [id number] DISPOSABLE SCOPE URO-G FLEXIBLE SCOPE Procedure code (CPT) selection complete Office Meds lidocaine HCl 2 % mucosal jelly in applicator Performing Provider: Fabio Dey MD Performing Location[facility] [place] [facility] Administered by: Arabella Flanagan RN on 04/29/23 11:22 Dose Route Admin Location Dispensed Lot Number Expiration Date NDC Primary Care Nurse Practitioner 10 mL intra-urethral 20 mL naproxen 500 mg tablet Performing Provider: Fabio Dey MD Performing Location: [facility] [place] [facility] Administered by: Arabella Flanagan RN on 04/29/23 11:22 Dose Route Admin Location Dispensed Lot Number Expiration Date NDC Primary Care Nurse Practitioner 500 mg PO 1 tab ciprofloxacin HCl 500 mg tablet Performing Provider: Fabio Dey MD Performing Location: [facility] [place] [facility] Administered by: Arabella Flanagan RN on 04/29/23 11:22 Dose Route Admin Location Dispensed Lot Number Expiration Date NDC Primary Care Nurse Practitioner 500 mg PO 1 tab Results AMB Urinalysis, Automated UA Leukoctes 15 Twyla/uL Last Edit by CODY Trivedi on 04/29/23 11:48 UA Nitrite Negative Last Edit by CODY Trivedi on 04/29/23 11:48 UA Urobilinogen 0.2 mg/dL Last Edit by CODY Trivedi on 04/29/23 11:4 8 UA Protein 30 mg/dL Last Edit by CODY Trivedi on 04/29/23 11:48 1+ Maxwell Nieto 04/29/23 11:48 UA pH 6.0 Last Edit by CODY Trivedi on 04/29/23 11:48 UA Blood 0 Josh/uL Last Edit by CODY Trivedi on 04/29/23 11:48 UA Specific Martell 1.030 Last Edit by CODY Trivedi on 04/29/23 11: 48 UA Ketone Negative Last Edit by CODY Trivedi on 04/29/23 11:48 UA Bilirubin 0 mg/dL Last Edit by CODY Trivedi on 04/29/23 11:48 UA Glucose 0 mg/dL Last Edit by CODY Trivedi on 04/29/23 11:48 Results Reviewed Results Reviewed: Laboratory Last Values Urine pH (Auto) 6.0 04/29/23 11:47 Specific Martell (Auto) 1.030 04/29/23 11:47 Urine Protein (Auto) 30 mg/dL 04/29/23 11:47 Glucose (UA)(Auto) 0 mg/dL 04/29/23 11:47 Urine Ketones (Auto) Negative 04/29/23 11:47 Urine Blood (Auto) 0 Josh/uL 04/29/23 11:47 Urine Nitrite (Auto) Negative 04/29/23 11:47 Urine Bilirubin (Auto) 0 mg/dL 04/29/23 11:47 Urine Urobilinogen (Auto) 0.2 mg/dL 04/29/23 11:47 Leukocyte Esterase (Auto) 15 Twyla/uL 04/29/23 11:47 Assessment & Plan Assessment & Plan (1) BPH (benign prostatic hyperplasia): Code(s): N40.0 - Benign prostatic hyperplasia without lower urinary tract symptoms (2) UTI due to extended-spectrum beta lactamase (ESBL) producing Escherichia coli: Code(s): N39.0 - Urinary tract infection, site not specified; B96.29 - Other Escherichia coli [E. coli] as the cause of diseases classified elsewhere; Z16.12 - Extended spectrum beta lactamase (ESBL) resistance (3) Bladder wall thickening: Code(s): N32.89 - Other specified disorders of bladder (4) Urge incontinence of urine: Code(s): N39.41 - Urge incontinence Plan Continue flomax 0.4 mg daily and proscar 5 mg daily Follow-up in 6 months Orders: Orders AMB Cystoscopy 04/29/23 N32.89 - Other specified disorders of bladder AMB Urinalysis Automated 04/29/23 Z13.9 - Encounter for screening, unspecified Patient Instructions: The patient should contact our office by phone for worsening of their current condition or the appearance of new symptoms. Compliance is encouraged with any medications and followup testing that is ordered. It is a privilege to be allowed the opportunity to participate in the urologic care of your patient. If you have any questions or concerns regarding treatment for the above conditions please do not hesitate to contact me. The office telephone contact is [phone]. This note is constructed in part using voice recognition software. While every effort has been made to ensure accuracy information assurance manager errors may have been inc luded. Yours sincerely, Fabio Dey MD Coding Level of Care Code Procedure Only Diagnoses BPH (benign prostatic hyperplasia) N40.0 UTI due to extended-spectrum beta lactamase (ESBL) producing Escherichia coli N39.0; B96.29; Z16.12 Bladder wall thickening N32.89 Urge incontinence of urine N39.41 CPT Codes Cystoscopy - CPT: 39379-[id number] ([id number])
== END 2023-04-29 12:21 | disposition home or self-care (01) ==
PROVIDERS: PCP Internal Medicine; Visit Provider Urology
DX: N32.89 Other specified disorders of bladder (principal); Z13.9 Encounter for screening, unspecified
CPT/HCPCS: 52000

== ENCOUNTER → 2023-04-29 10:26 | Outpatient (BNVA) | payer MEDICARE, MEDICAID, SELFPAY | PROVIDERS: PCP Internal Medicine; Visit Provider Urology | DX: N40.0 Benign prostatic hyperplasia without lower urinary tract symptoms (principal); N39.0 Urinary tract infection, site not specified; N32.89 Other specified disorders of bladder; N39.41 Urge incontinence; Z16.12 Extended spectrum beta lactamase (ESBL) resistance; B96.29 Other Escherichia coli [E. coli] as the cause of diseases classified elsewhere | CPT/HCPCS: 52000; 81003 ==

== ENCOUNTER 2023-06-08 12:55 | Outpatient (AMB) | payer MEDICARE, MEDICAID, SELFPAY ==
--- NOTE | 2023-06-08 13:03 | A.OFFVIS_ITS ---
Intake Vital Signs 06/08/23 13:08 Height 5 ft 9 in Weight 116 lb 13.52 oz BMI 17.3 BP 111/65 Blood Pressure Location Lt brachial Position Sitting Pulse 80 Intake Visit Reasons: 6 months follow up Intake Note: Jeovanny presents in the office as a 6 month follow up. CC: No concerns that anyone is aware of at this time. Torque Tester Required: No Allergies clindamycin Allergy (Unknown, Verified 06/08/23 13:09) Unknown Sulfa (Sulfonamide Antibiotics) [SULFA(SULFONAMIDE ANTIBIOTICS)] Allergy (Unknown, Verified 06/08/23 13:09) UNKNOWN sulfamethoxazole [From Bactrim] Allergy (Unknown, Verified 06/08/23 13:09) Unknown trimethoprim [From Bactrim] Allergy (Unknown, Verified 06/08/23 13:09) Unknown HPI 6 months follow up HPI Details Patient seen in June by Dr. Otoole son for continued repeated aspiration pneumonia. Modified barium swallow continues to show poor esophageal motility an aspiration. He was referred to thoracic surgery for consideration of surgery but this has been declined. He is now being referred back to us for consideration of a PEG tube. I have asked and reschedule with Dr. Otoole son. TODAY'S VISIT Apparently he saw Dr. Otoole son and they did not want consider invasive procedure such so PEG tube. In the interim it appears they were missed scheduled with Alycia Medeiros because the staff concerns for continued dysphagia which is likely neurogenic in origin. She re-referred him to speech therapy and for another barium swallow since he was supposed to be having speech therapies teaching and was not following up with them. I have not seen the patient since April of 2022 over a year ago. He had been treated in the past for constipation by myself with Linzess but because the staff accompanying him had no knowledge of what is medications were we are unable to evaluate if he ever received it and whether it was working. He is here today with staff who puts me on the phone with his nurses. They tell me that since he started a puree diet and more aggressively using the thickener and crushing the meds he is doing much better! With this he has not having any choking and certainly has not had any cough or recurrent aspiration pneumonia. He also continues on the Linzess with senna and MiraLax as needed for constipation and omeprazole with good control of his GERD. With this Jeovanny and his staff her satisfied with his progress and his t reatment and I will see him again in 6 months. 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 Paraparesis Metabolic encephalopathy COVID-19 Adult failure to thrive MVP (mitral valve prolapse) Mentally challenged Anxiety GERD (gastroesophageal reflux disease) Impaired glucose tolerance Tracheomalacia Schizophrenia Tubular adenoma of colon COPD (chronic obstructive pulmonary disease) Pneumonia Anemia Hypothyroid Depression Asthma Oropharyngeal dysphagia Surgical History History of bronchoscopy History of colonoscopy S/P tracheoplasty History of esophagogastroduodenoscopy (EGD) Family History Family/Other Unknown family medical history Father Hypertension Mother Unknown family medical history Brother No problems noted. Sister No problems noted. Social History Household Members: Unknown / Unable to assess Household Members Other:: Resides in Correction Housing: Other Housing Other:: jail Are you a primary manager wound care to a significant other at home: No Unable to assess alcohol history related to: Unable to respond and Unknown Alcohol intake: former Comment: 1:1 sitter Patient Tobacco Use Status: Never used Tobacco e-Cigarette/Vaping Use: Never Used Second Hand Smoke Exposure: No Advance Directives Date on File: 11/28/20 service: No Current occupational status: disabled Cognitive needs: Yes Hearing needs: No Vision needs: No Review of Systems Const Denies fatigue, Denies fever(s), Denies night sweats, Denies poor appetite and Denies weight loss ENT Reports Normal hearing present, Denies dental pain, Reports dysphagia, Denies hearing loss, Denies mouth pain, Denies odynophagia, Denies throat swelling, Denies tongue swelling and Reports other (Dentition adequate) Card Reports no additional complaints Resp Reports no additional complaints GI Details: Denies abdominal pain, Denies melena, Denies bloating, Denies hematochezia, Reports constipation, Denies GI cramping, Reports dysphagia, Denies excessive flatus, Denies early satiety, Reports heartburn, Denies diarrhea, Denies nausea, Denies odynophagia, Denies vomiting and Denies hematemesis Skin/Breast Denies pruritus, Denies lesions, Denies rash and Denies jaundice Neuro Reports Normal hearing present and Denies Abnormal speech present Endo Denies fatigue Aller/Immun Denies throat swelling and Denies tongue swelling Physical Exam Vital Signs: Last Vital Signs Pulse 80 06/08/23 13:08 BP 111/65 06/08/23 13:08 BMI result Body Mass Index 17.3 Const General: cooperative, no acute distress, well developed and well groomed Nutritional Appearance: well nourished and thin Orientation/consciousness: oriented to person, oriented to place and oriented to time Limitations: No language barrier and other limitations HEENT Head: Yes normocephalic and Yes atraumatic Eyes General: appearance normal, both eyes and all related structures Pupils: Equal, round and reactive pupils present Neck Neck: Yes normal visual inspection and Yes no lymphadenopathy Thyroid: Thyroid normal Resp Effort & Inspection: normal respiratory effort and able to speak in complete sentences Auscultation: clear to auscultation bilaterally Cardio Rate: regular rate Rhythm: regular rhythm Heart sounds: Normal, physiologic split S2 sound present Peripheral pulses: radial pulses present and posterior tibial pulses present GI Inspection: No distended and No Abdominal panniculus present Palpation (GI): Soft to palpation, nontender, no guarding, not rigid and No hepatosplenomegaly present Percussion: Yes normal to percussion Auscultation: normal bowel sounds Rectal Exam - Male: Yes deferred Skin General skin exam: no rashes or lesions noted, turgor normal, skin not dry, no jaundice, No spider nevi and no striae Rashes: no rashes Nails: normal Neuro General: oriented to person, oriented to place and oriented to time Cranial nerves: Yes Equal, round and reactive pupils present and Yes Normal hearing present Speech: No Abnormal speech present Extrem General: Yes normal to inspection, No clubbing, No cyanosis and No edema Psych Appearance: grossly normal and well kempt Mental Status: mental status grossly normal Speech and movement: Normal speech and movement present Affect: normal affect Attitude: cooperative Thought process: Normal thought process present and not confabulating Thought content: Normal thought content present Insight: Poor insight present (Psych) Judgement: Poor judgement present (Psych) Assessment & Plan Assessment & Plan (1) GERD (gastroesophageal reflux disease): Code(s): K21.9 - Gastro-esophageal reflux disease without esophagitis Qualifiers: Esophagitis presence: without esophagitis Qualified Code(s): K21.9 - Gastro-esophageal reflux disease without esophagitis (2) Constipation: Code(s): K59.00 - Constipation, unspecified Qualifiers: Constipation type: chronic idiopathic constipation Qualified Code(s): K59.04 - Chronic idiopathic constipation (3) Tubular adenoma of colon: Comment: 10 mm polyp and 12 mm sessile polyp 04/2020 repeat scope 10/2020=TA repeat 5 years Code(s): D12.6 - Benign neoplasm of colon, unspecified Plan Apparently he saw Has son and they did not want consider invasive procedure such so PEG tube. In the interim it appears they were missed scheduled with Alycia Medeiros because the staff concerns for continued dysphagia which is likely neurogenic in origin. She re-referred him to speech therapy and for another barium swallow since he was supposed to be having speech therapies teaching and was not following up with them. I have not seen the patient since April of 2022 over a year ago. He had been treated in the past for constipation by myself with Linzess but because the staff accompanying him had no knowledge of what is medications were we are unable to evaluate if he ever received it and whether it was working. He is here today with staff who puts me on the phone with his nurses. They tell me that since he started a puree diet and more aggressively using the thickener and crushing the meds he is doing much better! With this he has not having any choking and certainly has not had any cough or recurrent aspiration pneumonia. He also continues on the Linzess with senna and MiraLax as needed for constipation and omeprazole with good control of his GERD. With this Jeovanny and his staff her satisfied with his progress and his treatment and I will see him again in 6 months. Medications: New sennosides (senna) 17.2 mg (2 x 8.6 mg) PO DAILY 60 tabs 6RF polyethylene glycol 3350 17 grams PO DAILY PRN 238 grams 6RF Constipation Refilled linaclotide (Linzess) 290 mcg PO DAILY 30 caps 6RF K59.00 - Constipation, unspecified omeprazole 20 mg PO BID 60 caps 6RF Coding Level of Care Code Est Pt Level 3 (03786) Diagnoses Gastroesophageal reflux disease without esophagitis K21.9 Esophagitis presence: without esophagitis Chronic idiopathic constipation K59.04 Constipation type: chronic idiopathic constipation Tubular adenoma of colon D12.6
[2023-06-08 13:08] VITALS: BP 111/65; PULSE 80; BMI 17.3
== END 2023-06-08 14:02 | disposition home or self-care (01) ==
PROVIDERS: PCP Internal Medicine; Visit Provider Nurse Practitioner
DX: K21.9 Gastro-esophageal reflux disease without esophagitis (principal); K59.04 Chronic idiopathic constipation; D12.6 Benign neoplasm of colon, unspecified
CPT/HCPCS: 99213

== ENCOUNTER → 2023-06-08 12:55 | Outpatient (BNVA) | payer MEDICARE, MEDICAID, SELFPAY | PROVIDERS: PCP Internal Medicine; Visit Provider Nurse Practitioner | DX: K21.9 Gastro-esophageal reflux disease without esophagitis (principal); K59.04 Chronic idiopathic constipation; D12.6 Benign neoplasm of colon, unspecified | CPT/HCPCS: 99212 ==

== ENCOUNTER 2023-10-27 19:44 | Emergency (ER) | payer MEDICARE, MEDICAID, SELFPAY ==
--- NOTE | ~2023-10-27 | XR_ITS ---
EXAMINATION: XR CHEST CLINICAL INFORMATION: Aspiration COMPARISON: CT chest 02/04/2023 chest radiograph 01/02/2023 TECHNIQUE: Frontal view of the chest was obtained. FINDINGS: Size normal and there is no evidence of CHF. Some coarsened reticular markings are present in the right upper lobe. Tiny bit of unchanged atelectasis or scarring in the retrocardiac region. No focal consolidations or suspicious lung masses are seen. Marked degenerative changes are present in the left shoulder joint. Rounded calcific densities at the base of the neck on the left are likely external apices have not been seen on prior imaging. XR/XR chest 1V IMPRESSION: No acute intrathoracic disease. Electronically signed by: Arnaldo Lamar MD 10/27/2023 10:18 PM EDT
[2023-10-27 19:50] VITALS: BP 109/62; BP 118/76; PULSE 81; PULSE 85; RESP 16; TEMP 37.2; O2SAT 96; O2SAT 98; BMI 21.9
[2023-10-27 20:37] LABS: MANUAL DIFF FLAG NO
[2023-10-27 20:38] LABS: Basophils Percent Auto 0.5 % (0-2); Eosinophils Absolute Auto 0.1 X10*3/uL (0.0-0.4); Eosinophils Percent Auto 1.3 % (0-4); Hematocrit 34.7 % (42.0-52.0); Hemoglobin 11.7 g/dl (14.0-18.0); Imm Gran Abs Auto 0.03 X10*3/uL (0.00-0.03); Imm Gran Pct Auto 0.3 % (0.0-0.4); Lymphocytes Absolute Auto 1.1 X10*3/uL (1.2-4.9); Lymphocytes Percent Auto 12.2 % (20-40); Mean Corpuscular HGB Conc 33.7 g/dl (31.0-36.0); Mean Corpuscular Hemoglobin 31.5 pg (27.0-33.0); Mean Corpuscular Volume 93.3 fL (80.0-98.0); Mean Platelet Volume 10.1 fL (9.4-12.4); Monocytes Absolute Auto 0.6 X10*3/uL (0.1-1.2); Monocytes Percent Auto 6.8 % (2-11); Neutrophils Absolute Auto 6.8 x10*3/uL (2.0-8.3); Neutrophils Percent Auto 78.9 % (45-73); Platelet Count 271 X10*3/uL (160-400); Red Blood Count 3.72 X10*6/uL (4.60-5.80); Red Cell Distribution Width 13.2 % (11.0-16.0); White Blood Count 8.6 X10*3/uL (4.8-10.8)
[2023-10-27 20:55] LABS: Alanine Aminotransferase 21 U/L (0-40); Albumin Level 3.7 g/dL (3.5-5.0); Alkaline Phosphatase 73 U/L (39-117); Anion Gap 14 (12-20); Aspartate Amino Transferase 19 U/L (5-37); Bilirubin Total 0.2 mg/dL (0.0-1.0); Blood Urea Nitrogen 20 mg/dL (9-16); Carbon Dioxide 27 mmol/L (22-29); Chloride 102 mmol/L (96-108); Creatinine Clr Calc Pharmacy 52.6; Estimated Glomerular Filt Rate > 60; Glucose Random 186 mg/dL (60-115); Potassium 4.1 mmol/L (3.3-5.1); Sodium 139 mmol/L (135-145); Total Protein 6.5 g/dL (6.5-8.0)
[2023-10-27 21:14] LABS: Influenza A PCR NEGATIVE (Negative); Influenza B PCR NEGATIVE (Negative); Resp Syncy Virus RNA Qual PCR NEGATIVE (Negative); SARS COV2 PCR INHOUSE NEGATIVE (Negative)
[2023-10-27 21:40] VITALS: BP 118/62; PULSE 79; RESP 20; TEMP 36.8; O2SAT 96
--- NOTE | 2023-10-27 22:04 | ED_ITS ---
HPI - General Adult General Chief complaint: General Medical Stated complaint: COUGHING,HX PNEUMONIA & ASPIRATION Time Seen by Provider: 10/27/23 20:08 Source: patient Limitations: other (Schizophrenia) History of Present Illness ED Provider: Jacquie Knapp PA-C HPI narrative: 68-year-old male with a history of schizophrenia presents from detention after choking on rice. The patient apparently has a history of aspiration pneumonia, he was eating dinner, began to choke on rice, they symptoms for assessment. Per report, the patient has not had any recent cough or cold symptoms or fever. He is currently asymptomatic. Related Data Home Medications ?Medication ?Instructions ?Recorded ?Confirmed clozapine 100 mg tablet 200 mg PO BEDTIME 11/27/20 02/17/23 clozapine 25 mg tablet 50 mg PO BID 08/13/21 02/17/23 zinc oxide 12.8 % topical ointment 1 appl topical DAILY 01/28/23 02/17/23 (Triple Paste) fluoxetine 20 mg capsule 40 mg PO QAM 06/08/23 lorazepam 0.5 mg tablet 0.5 mg PO DAILY 06/08/23 Previous Rx's ?Medication ?Instructions ?Recorded pull ups small #100 ea 06/05/20 right AFO #1 ea 11/24/21 ondansetron HCl 8 mg tablet 8 mg PO BID PRN nausea and 06/11/22 vomiting #20 tabs compressor, for nebulizer #1 ea 11/27/22 blood pressure monitor (Blood #1 ea 12/16/22 Pressure Kit) ferrous sulfate 220 mg (44 mg 220 mg (5 mL) PO DAILY #473 mL 04/27/23 iron)/5 mL oral elixir levetiracetam 100 mg/mL oral 500 mg (5 mL) PO BID #473 mL 06/01/23 solution (Keppra) linaclotide 290 mcg capsule 290 mcg PO DAILY #30 caps 06/08/23 (Linzess) omeprazole 20 mg capsule,delayed 20 mg PO BID #60 caps 06/08/23 release polyethylene glycol 3350 17 17 g PO DAILY PRN Constipation 06/08/23 gram/dose oral powder #238 grams sennosides 8.6 mg tablet (senna) 17.2 mg (2 x 8.6 mg) PO DAILY #60 06/08/23 tabs doxazosin 4 mg tablet 4 mg PO DAILY #30 tabs 07/01/23 desmopressin 0.1 mg tablet 0.1 mg PO BID #60 tabs 08/06/23 levothyroxine 25 mcg tablet 25 mcg PO DAILY@0600 #30 tabs 09/13/23 ascorbic acid (vitamin C) 500 mg/5 500 mg (5 mL) PO DAILY #120 mL 10/18/23 mL oral liquid (Liquid C) Allergies Allergy/AdvReac Type Severity Reaction Status Date / Time clindamycin Allergy Unknown Unknown Verified 10/27/23 19:51 Sulfa (Sulfonamide Allergy Unknown UNKNOWN Verified 10/27/23 19:51 Antibiotics) [SULFA(SULFONAMIDE ANTIBIOTICS)] sulfamethoxazole Allergy Unknown Unknown Verified 10/27/23 19:51 [From Bactrim] trimethoprim [From Bactrim] Allergy Unknown Unknown Verified 10/27/23 19:51 Review of Systems 2 Review of Systems: Unable to obtain as the patient has schizophrenia, he is not able to answer all questions Yes all other systems are reviewed and are negative PMFSH Past Medical History Attestation statement: The following information was validated with the patient. 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 Paraparesis Metabolic encephalopathy COVID-19 Adult failure to thrive MVP (mitral valve prolapse) Mentally challenged Anxiety GERD (gastroesophageal reflux disease) Impaired glucose tolerance Tracheomalacia Schizophrenia Tubular adenoma of colon COPD (chronic obstructive pulmonary disease) Pneumonia Anemia Hypothyroid Depression Asthma Oropharyngeal dysphagia Surgical History History of bronchoscopy History of colonoscopy S/P tracheoplasty History of esophagogastroduodenoscopy (EGD) Family History Family History Family/Other Unknown family medical history Father Hypertension Mother Unknown family medical history Brother No problems noted. Sister No problems noted. Social History Social History Household Members: Unknown / Unable to assess Household Members Other:: Resides in Correction Housing: Other Housing Other:: long term Are you a primary attending ambulatory care to a significant other at home: No Unable to assess alcohol history related to: Unable to respond and Unknown Alcohol intake: former Comment: 1:1 sitter Patient Tobacco Use Status: Never used Tobacco e-Cigarette/Vaping Use: Never Used Second Hand Smoke Exposure: No Advance Directives: Yes Advance Directives on File: Yes Advance Directives Date on File: 11/28/20 service: No Current occupational status: disabled Cognitive needs: Yes Hearing needs: No Vision needs: No Physical Exam ED Vital Signs: Vital Signs - 24 hr 10/27/23 19:50 10/27/23 21:40 Temperature 99 F 98.2 F Pulse Rate 81 79 Respiratory Rate 16 20 Blood Pressure 109/62 118/62 Pulse Oximetry 96 96 Oxygen Delivery Method Room Air Room Air BMI result Body Mass Index 21.9 Const Other: Alert, well in appearance Orientation/consciousness: oriented to person Resp Other: Nonlabored respirations, lungs clear to auscultation Cardio Other: Normal peripheral perfusion Skin Other: Warm dry no Neuro General: oriented to person, no focal motor deficits and CN's II-XI intact bilaterally Psych Other: Flat affect, cooperative Medical Decision Making Medical Decision Making MDM Narrative: 68-year-old male with a history of schizophrenia presents from detention after choking on rice. The patient apparently has a history of aspiration pneumonia, he was eating dinner, began to choke on rice, they symptoms for assessment. Per report, the patient has not had any recent cough or cold symptoms or fever. He is currently asymptomatic. Problem: Schizophrenia History: Per EMS and detention staff I have considered the following differential diagnoses: aspiration pneumonia, esophageal foreign body Plan: Screening labs including viral panel and chest x-ray ordered. If the patient did aspirate, his assessment is going to be negative, I will relay this in his discharge instructions. It would be too soon for him to have developed an aspiration pneumonia I have independently reviewed the following tests: Labs: No leukocytosis, not anemic, no electrolyte abnormality, viral panel is negative Chest x-ray: No pneumonia, no pleural effusion no pulmonary edema Lab Data 10/27/23 20:31 10/27/23 20:31 Labs: Lab Results 10/27/23 Range/Units 20:31 WBC 8.6 (4.8-10.8) X10*3/uL RBC 3.72 L (4.60-5.80) X10*6/uL Hgb 11.7 L (14.0-18.0) g/dl Hct 34.7 L (42.0-52.0) % MCV 93.3 (80.0-98.0) fL MCH 31.5 (27.0-33.0) pg MCHC 33.7 (31.0-36.0) g/dl RDW 13.2 (11.0-16.0) % Plt Count 271 D (160-400) X10*3/uL MPV 10.1 (9.4-12.4) fL Immature Gran % (Auto) 0.3 (0.0-0.4) % Neut % (Auto) 78.9 H (45-73) % Lymph % (Auto) 12.2 L (20-40) % Mcculloch % (Auto) 6.8 (2-11) % Eos % (Auto) 1.3 (0-4) % Baso % (Auto) 0.5 (0-2) % Lymph # (Auto) 1.1 L (1.2-4.9) X10*3/uL Mcculloch # (Auto) 0.6 (0.1-1.2) X10*3/uL Eos # (Auto) 0.1 (0.0-0.4) X10*3/uL Baso # (Auto) 0.0 (0.0-0.2) X10*3/uL Abs Immat Gran (auto) 0.03 (0.00-0.03) X10*3/uL Absolute Neuts (auto) 6.8 (2.0-8.3) x10*3/uL Absolute Nucleated RBC 0.000 (0.0-0.012) X10*3/uL Nucleated RBC % (auto) 0.0 (0.0-0.2) /100WBC Sodium 139 (135-145) mmol/L Potassium 4.1 (3.3-5.1) mmol/L Chloride 102 (96-108) mmol/L Carbon Dioxide 27 (22-29) mmol/L Anion Gap 14 (12-20) BUN 20 H (9-16) mg/dL Creatinine 1.12 (0.5-1.4) mg/dL Estim Creat Clear Calc 52.6 Estimated GFR > 60 Random Glucose 186 H (60-115) mg/dL Calcium 10.0 (8.4-10.2) mg/dL Total Bilirubin 0.2 (0.0-1.0) mg/dL AST 19 (5-37) U/L ALT 21 (0-40) U/L Alkaline Phosphatase 73 (39-117) U/L Total Protein 6.5 (6.5-8.0) g/dL Albumin 3.7 (3.5-5.0) g/dL Influenza Type A (PCR) NEGATIVE (Negative) Influenza Type B (PCR) NEGATIVE (Negative) RSV RNA Qual (PCR) NEGATIVE (Negative) SARS-CoV-2 RNA (RT-PCR) NEGATIVE (Negative) Discharge Plan Discharge Clinical Impression: Choking due to food (regurgitated) Patient Disposition: Home, Self-Care Additional Instructions: Screening labs including a viral panel were obtained and they were negative. A chest x-ray obtained, it is normal. Given the patient just choked on rice this evening, it would be too soon for him to have developed an aspiration pneumonia. Your staff should observe the patient for evidence of a fever, the development of a productive cough expelling discolored sputum, or shortness of breath. If the patient develops any of these symptoms, he should be assessed by his primary care provider. Prescriptions: No Action (DME) right AFO See Rx Instructions .Route .MEDSUPPLY Qty: 1 0RF Rx Instructions: As directed ondansetron HCl 8 mg tablet 8 mg PO BID PRN (Reason: nausea and vomiting) Qty: 20 0RF ferrous sulfate 220 mg (44 mg iron)/5 mL elixir 220 mg PO DAILY Qty: 473 2RF levetiracetam [Keppra] 100 mg/mL solution 500 mg PO BID Qty: 473 5RF doxazosin 4 mg tablet 4 mg PO DAILY Qty: 30 5RF desmopressin 0.1 mg tablet 0.1 mg PO BID Qty: 60 3RF levothyroxine 25 mcg tablet 25 mcg PO DAILY@0600 Qty: 30 0RF Rx Instructions: Crush the pill Liquid C 500 mg/5 mL liquid 500 mg PO DAILY Qty: 120 0RF Triple Paste 12.8 % ointment 1 appl topical DAILY Protocol: Apply to: Apply to: use with dressing chnage (DME) pull ups small See Rx Instructions .Route .MEDSUPPLY Qty: 100 11RF Rx Instructions: As directed clozapine 100 mg tablet 200 mg PO BEDTIME clozapine 25 mg tablet 50 mg PO BID (DME) blood pressure monitor [Blood Pressure Kit] Kit See Rx Instructions .ROUTE .MEDSUPPLY Qty: 1 0RF Rx Instructions: As directed pediatric cuff (DME) compressor, for nebulizer Device See Rx Instructions .Route Qty: 1 0RF Rx Instructions: As directed lorazepam 0.5 mg tablet 0.5 mg PO DAILY fluoxetine 20 mg capsule 40 mg PO QAM Linzess 290 mcg capsule 290 mcg PO DAILY Qty: 30 6RF omeprazole 20 mg capsule,delayed release(DR/EC) 20 mg PO BID Qty: 60 6RF sennosides [senna] 8.6 mg tablet 17.2 mg PO DAILY Qty: 60 6RF polyethylene glycol 3350 17 gram/dose powder 17 g PO DAILY PRN (Reason: Constipation) Qty: 238 6RF Print Language: Mohawk
--- NOTE | 2023-10-27 22:33 | PC.NURSE ---
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
== END 2023-10-27 23:14 | disposition home or self-care (01) ==
PROVIDERS: Emergency Provider Emergency Medicine; PCP Internal Medicine
DX: R09.89 Other specified symptoms and signs involving the circulatory and respiratory systems (principal); R11.10 Vomiting, unspecified; Z03.818 Encounter for observation for suspected exposure to other biological agents ruled out
CPT/HCPCS: 0241U; 71045; 80053; 85025; 99282; 99283

== ENCOUNTER 2023-12-08 11:02 | Outpatient (AMB) | payer MEDICARE, MEDICAID, SELFPAY ==
--- NOTE | 2023-12-08 11:05 | MHC.OFFVIS ---
Vital Signs 12/08/23 11:09 12/08/23 11:20 Height 5 ft 5 in Weight 125 lb 3.561 oz BMI 20.8 BP 79/56 L 83/51 L Blood Pressure Location Lt brachial Lt brachial Position Sitting Sitting Pulse 106 H 118 H Intake Visit Reasons: Dysphagia Intake Note: Dagoberto presents to in office follow up of dysphagia. CC: Patient denies having any pain or concerns today. Supervisor [employer] Required: No Allergies clindamycin Allergy (Unknown, Verified 12/08/23 11:16) Unknown Sulfa (Sulfonamide Antibiotics) [SULFA(SULFONAMIDE ANTIBIOTICS)] Allergy (Unknown, Verified 12/08/23 11:16) UNKNOWN sulfamethoxazole [From Bactrim] Allergy (Unknown, Verified 12/08/23 11:16) Unknown trimethoprim [From Bactrim] Allergy (Unknown, Verified 12/08/23 11:16) Unknown HPI HPI Dysphagia: Details: Assessment & Plan (1) GERD (gastroesophageal reflux disease): Code(s): K21.9 - Gastro-esophageal reflux disease without esophagitis Qualifiers: Esophagitis presence: without esophagitis Qualified Code(s): K21.9 - Gastro-esophageal reflux disease without esophagitis (2) Constipation: Code(s): K59.00 - Constipation, unspecified Qualifiers: Constipation type: chronic idiopathic constipation Qualified Code(s): K59.04 - Chronic idiopathic constipation (3) Tubular adenoma of colon: Comment: 10 mm polyp and 12 mm sessile polyp 04/2020 repeat scope 10/2020=TA repeat 5 years Code(s): D12.6 - Benign neoplasm of colon, unspecified Plan Apparently he saw Has son and they did not want consider invasive procedure such so PEG tube. In the interim it appears they were missed scheduled with Alycia Medeiros because the staff concerns for continued dysphagia which is likely neurogenic in origin. She re-referred him to speech therapy and for another barium swallow since he was supposed to be having speech therapies teaching and was not following up with them. I have not seen the patient since April of 2022 over a year ago. He had been treated in the past for constipation by myself with Linzess but because the staff accompanying him had no knowledge of what is medications were we are unable to evaluate if he ever received it and whether it was working. He is here today with staff who puts me on the phone with his nurses. They tell me that since he started a puree diet and more aggressively using the thickener and crushing the meds he is doing much better! With this he has not having any choking and certainly has not had any cough or recurrent aspiration pneumonia. He also continues on the Linzess with senna and MiraLax as needed for constipation and omeprazole with good control of his GERD. With this Jeovanny and his staff her satisfied with his progress and his treatment and I will see him again in 6 months. Medications: New sennosides (senna) 17.2 mg (2 x 8.6 mg) PO DAILY 60 tabs 6RF polyethylene glycol 3350 17 grams PO DAILY PRN 238 grams 6RF Constipation Refilled linaclotide (Linzess) 290 mcg PO DAILY 30 caps 6RF K59.00 - Constipation, unspecified omeprazole 20 mg PO BID 60 caps 6RF TODAY'S VISIT He is here today with a staff member from [place] [facility] [place] who is supportive. He also continues on the Linzess with senna and MiraLax as needed for constipation and omeprazole with good control of his GERD. Dagoberto seems a little off today and we wonder if there may be something else going on with his health. They will be taking him to an urgent care after this as he seems more withdrawn than usual. 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 Paraparesis Metabolic encephalopathy COVID-19 Adult failure to thrive MVP (mitral valve prolapse) Mentally challenged Anxiety GERD (gastroesophageal reflux disease) Impaired glucose tolerance Tracheomalacia Schizophrenia Tubular adenoma of colon COPD (chronic obstructive pulmonary disease) Pneumonia Anemia Hypothyroid Depression Asthma Oropharyngeal dysphagia Surgical History History of bronchoscopy History of colonoscopy S/P tracheoplasty History of esophagogastroduodenoscopy (EGD) Family History Family/Other Unknown family medical history Father Hypertension Mother Unknown family medical history Brother No problems noted. Sister No problems noted. Social History Household Members: Unknown / Unable to assess Household Members Other:: Resides in Residential Housing: Other Housing Other:: residential Are you a primary animal care taker to a significant other at home: No Unable to assess alcohol history related to: Unable to respond and Unknown Alcohol intake: former Comment: 1:1 sitter Patient Tobacco Use Status: Never used Tobacco e-Cigarette/Vaping Use: Never Used Second Hand Smoke Exposure: No Advance Directives Date on File: 11/28/20 service: No Current occupational status: disabled Cognitive needs: Yes Hearing needs: No Vision needs: No Review of Systems Const Denies fatigue, Denies fever(s), Denies night sweats, Denies poor appetite and Denies weight loss ENT Reports Normal hearing present, Denies dental pain, Denies dysphagia, Denies hearing loss, Denies mouth pain, Denies odynophagia, Denies throat swelling, Denies tongue swelling and Reports other (Dentition adequate) Card Reports no additional complaints Resp Reports no additional complaints GI Details: Denies abdominal pain, Denies melena, Denies bloating, Denies hematochezia, Reports constipation, Denies GI cramping, Denies dysphagia, Denies excessive flatus, Denies early satiety, Reports heartburn, Denies diarrhea, Denies nausea, Denies odynophagia, Denies vomiting and Denies hematemesis Skin/Breast Denies pruritus, Denies lesions, Denies rash and Denies jaundice Neuro Reports Normal hearing present, Denies Abnormal speech present and Reports behavioral changes Psych Reports behavioral changes Endo Denies fatigue Aller/Immun Denies throat swelling and Denies tongue swelling Physical Exam Vital Signs: Last Vital Signs Pulse 118 H 12/08/23 11:20 BP 83/51 L 12/08/23 11:20 BMI result Body Mass Index 20.8 Const General: cooperative, no acute distress, well developed and well groomed Nutritional Appearance: average body habitus and well nourished Orientation/consciousness: oriented to person, oriented to place and oriented to time Limitations: behavioral limitations, No language barrier and other limitations HEENT Head: Yes normocephalic and Yes atraumatic Eyes General: appearance normal, both eyes and all related structures Pupils: Equal, round and reactive pupils present Neck Neck: Yes normal visual inspection and Yes no lymphadenopathy Thyroid: Thyroid normal Resp Effort & Inspection: normal respiratory effort and able to speak in complete sentences Auscultation: clear to auscultation bilaterally Cardio Rate: regular rate Rhythm: regular rhythm Heart sounds: Normal, physiologic split S2 sound present Peripheral pulses: radial pulses present and posterior tibial pulses present GI Inspection: No distended and No Abdominal panniculus present Palpation (GI): Soft to palpation, nontender, no guarding, not rigid and No hepatosplenomegaly present Percussion: Yes normal to percussion Auscultation: normal bowel sounds Rectal Exam - Male: Yes deferred Skin General skin exam: no rashes or lesions noted, turgor normal, skin not dry, no jaundice, No spider nevi and no striae Rashes: no rashes Nails: normal Neuro General: oriented to person, oriented to place and oriented to time Cranial nerves: Yes Equal, round and reactive pupils present and Yes Normal hearing present Speech: No Abnormal speech present Extrem General: Yes normal to inspection, No clubbing, No cyanosis and No edema Psych Appearance: grossly normal and well kempt Mental Status: other Speech and movement: Mute speech present Affect: Blunted affect present Attitude: cooperative Thought process: not confabulating and Other thought process findings present Thought content: other Insight: Poor insight present (Psych) Judgement: Poor judgement present (Psych) Assessment & Plan Assessment & Plan (1) GERD (gastroesophageal reflux disease): Code(s): K21.9 - Gastro-esophageal reflux disease without esophagitis Category: Medical Qualifiers: Esophagitis presence: without esophagitis Qualified Code(s): K21.9 - Gastro-esophageal reflux disease without esophagitis (2) Constipation: Code(s): K59.00 - Constipation, unspecified Category: Medical Qualifiers: Constipation type: chronic idiopathic constipation Qualified Code(s): K59.04 - Chronic idiopathic constipation Plan He is here today with a staff member from [place] who is supportive. He also continues on the Linzess with senna and MiraLax as needed for constipation and omeprazole with good control of his GERD. Dagoberto seems a little off today and we wonder if there may be something else going on with his health. They will be taking him to an urgent care after this as he seems more withdrawn than usual. ROV 6 mos Coding Level of Care Code Est Pt Level 3 (73585) Diagnoses Gastroesophageal reflux disease without esophagitis K21.9 Esophagitis presence: without esophagitis Chronic idiopathic constipation K59.04 Constipation type: chronic idiopathic constipation
[2023-12-08 11:09] VITALS: BP 79/56; PULSE 106; BMI 20.8
[2023-12-08 11:20] VITALS: BP 83/51; PULSE 118
== END 2023-12-08 11:32 | disposition home or self-care (01) ==
PROVIDERS: PCP Internal Medicine; Visit Provider Nurse Practitioner
DX: K21.9 Gastro-esophageal reflux disease without esophagitis (principal); K59.04 Chronic idiopathic constipation
CPT/HCPCS: 99213

== ENCOUNTER → 2023-12-08 11:02 | Outpatient (BNVA) | payer MEDICARE, MEDICAID, SELFPAY | PROVIDERS: PCP Internal Medicine; Visit Provider Nurse Practitioner | DX: K59.04 Chronic idiopathic constipation (principal); K21.9 Gastro-esophageal reflux disease without esophagitis; R13.10 Dysphagia, unspecified; D12.6 Benign neoplasm of colon, unspecified | CPT/HCPCS: 99212 ==

== ENCOUNTER 2023-12-16 09:48 | Outpatient (AMB) | payer MEDICARE, MEDICAID, SELFPAY ==
[2023-12-16 09:49] VITALS: BP 112/52; PULSE 78; O2SAT 98; BMI 21.1
--- NOTE | 2023-12-16 09:49 | MHC.PC.OV ---
Vital Signs 12/16/23 09:49 Height 5 ft 5 in Weight 127 lb BMI 21.1 BP 112/52 L Blood Pressure Location Lt brachial Position Sitting Pulse 78 Pulse Source Pulse Oximeter Pulse Oximetry (%) 98 Oxygen Delivery Method Room Air Intake Visit Reasons: Follow up Intake Note: Caregiver declined PHQ9 and GAD7 Trust Vault Clerk Required: No Accompanied by: Staff Allergies clindamycin Allergy (Unknown, Verified 12/16/23 10:04) Unknown Sulfa (Sulfonamide Antibiotics) [SULFA(SULFONAMIDE ANTIBIOTICS)] Allergy (Unknown, Verified 12/16/23 10:04) UNKNOWN sulfamethoxazole [From Bactrim] Allergy (Unknown, Verified 12/16/23 10:04) Unknown trimethoprim [From Bactrim] Allergy (Unknown, Verified 12/16/23 10:04) Unknown Tobacco use date assessed: 12/16/23 Fall risk assessment: No Falls in past year Last assessed Fall Risk: 12/16/23 Dental Screening Dental Screen Date: 12/16/23 Did you have a dental visit in the last 12 months?: Yes Did you have a dental problem in the last 6 months where you did not have access to dental care?: No Was dental information given to patient?: Patient has dentist HPI Follow up HPI Details 68-year-old male with a mental and behavioral problem/schizophrenia hypothyroid GERD BPH coming in for follow-up. Last seen in November 2022. Patient had that time had an aspiration problem due to esophageal dysmotility and has the G-tube. Patient continues to follow-up with gastro seen in December 07 for the dysphagia patient declined invasive procedure such as PEG tube. Has constipation and treated with Linzess patient on thickener. ER note October for for dysphagia patient has seen Urology also in April 2023 for BPH on Flomax. So orthopedic note for left proximal humeral fracture which happened in January 23 2023 continue with activity. 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 Paraparesis Metabolic encephalopathy COVID-19 Adult failure to thrive MVP (mitral valve prolapse) Mentally challenged Anxiety GERD (gastroesophageal reflux disease) Impaired glucose tolerance Tracheomalacia Schizophrenia Tubular adenoma of colon COPD (chronic obstructive pulmonary disease) Pneumonia Anemia Hypothyroid Depression Asthma Oropharyngeal dysphagia Surgical History History of bronchoscopy History of colonoscopy S/P tracheoplasty History of esophagogastroduodenoscopy (EGD) Family History Family/Other Unknown family medical history Father Hypertension Mother Unknown family medical history Brother No problems noted. Sister No problems noted. 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 Patient Tobacco Use Status: Never used Tobacco Tobacco use type: Cigarette e-Cigarette/Vaping Use: Never Used Second Hand Smoke Exposure: No Advance Directives Date on File: 11/28/20 service: No Current occupational status: disabled Cognitive needs: Yes Hearing needs: No Vision needs: No Questionnaire Thrive Questionnaire Date Thrive assessed: 12/16/23 I am a: Parent/Caregiver What is your living situation today?: I have a steady place to live Within the past 12 months, did the food you bought not last and you didn't have the money to get more?: Never true Within the past 12 months, did you worry whether your food would run out before you got money to buy more?: Never true THRIVE Score: 0 AUDIT C Alcohol Use Questionnaire (AUDIT-C) 1. How often do you have a drink containing alcohol?: Never 3. How often do you have six or more drinks on one occasion?: Never Total Score: 0 Score Reviewed/Action Taken: Yes OSORIO-7 AMB Questionnaire OSORIO-7 Date OSORIO - 7 assessed: 09/03/22 Source: Developed by Drs. Anthony Lyle, Adriana Ji, Gunner Snider and colleagues, with an educational jia from [employer]. Physical exam (Primary Care) Vital Signs: Last Vital Signs Pulse 78 12/16/23 09:49 BP 112/52 L 12/16/23 09:49 Pulse Ox 98 12/16/23 09:49 Oxygen Delivery Method Room Air 12/16/23 09:49 BMI result Body Mass Index 21.1 Tobacco/Smoking Status: Tobacco use Status Tobacco use date assessed 12/16/23 12/16/23 09:50 Patient Tobacco Use Status Never used Tobacco 12/16/23 09:50 Tobacco use type Cigarette 12/16/23 10:10 e-Cigarette/Vaping Use Never Used 12/16/23 09:50 Thrive Assessment: Date of Thrive Assessment Date Thrive assessed 12/16/23 12/16/23 10:10 Const General: alert; No acute distress Eyes Conjunctivae: conjunctivae normal Resp Auscultation: clear to auscultation bilaterally Cardio Rate: regular rate Rhythm: regular rhythm GI Inspection: Yes normal to inspection Extrem General: Yes normal to inspection and No edema Office Procedures Flu Questionnaire Does the patient have a severe egg allergy?: No Does the patient have severe life threatening allergies?: No Does the patient have a fever or illness today?: No Has the patient ever had Guillain-[place] Syndrome?: No Has the patient ever had any past reaction to a flu shot?: No Immunizations Fluarix Triv [id number] (PF) 45 mcg (15 mcg x 3)/0.5 mL IM syringe Performing Provider: Briana Reeves MD [facility] Administered by: ETHAN Pérez on 12/16/23 10:49 Dose Route Admin Location Dispensed Lot Number Expiration Date [facility] Concrete Pourer 0.5 mL IM Left Deltoid 0.5 mL [id number] 08/21/24 [id number] [employer] VIS Given Date VIS Provided VIS Publication Date 12/16/23 Single Vaccine 20 Eligibility Eligibility Date Funding Source Not [facility] Eligible 12/16/23 Private Coding Level of Care Code Est Pt Level 4 (81445) Diagnoses Acquired hypothyroidism E03.9 Hypothyroidism type: acquired Gastroesophageal reflux disease without esophagitis K21.9 Esophagitis presence: without esophagitis 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 Benign prostatic hyperplasia without lower urinary tract symptoms N40.0 Lower urinary tract symptom presence: symptoms absent Pharyngoesophageal dysphagia R13.14 Dysphagia type: pharyngoesophageal phase Closed nondisplaced fracture of surgical neck of left humerus, unspecified fracture morphology, sequela S42.215S Encounter type: sequela Fracture alignment: nondisplaced Fracture morphology: unspecified fracture morphology Fracture type: closed Humerus Location: surgical neck Assessment & Plan Assessment & Plan (1) Hypothyroid: Code(s): E03.9 - Hypothyroidism, unspecified Category: Medical Qualifiers: Hypothyroidism type: acquired Qualified Code(s): E03.9 - Hypothyroidism, unspecified Plan: Continue with thyroid medication and need to have blood work done (2) GERD (gastroesophageal reflux disease): Code(s): K21.9 - Gastro-esophageal reflux disease without esophagitis Category: Medical Qualifiers: Esophagitis presence: without esophagitis Qualified Code(s): K21.9 - Gastro-esophageal reflux disease without esophagitis Plan: Patient is being followed up by Gastroenterology on omeprazole (3) Schizophrenia: Code(s): F20.9 - Schizophrenia, unspecified Category: Medical Qualifiers: Schizophrenia type: catatonic schizophrenia Qualified Code(s): F20.2 - Catatonic schizophrenia Plan: Continue to follow-up with psychiatry and therapy (4) BPH (benign prostatic hyperplasia): Code(s): N40.0 - Benign prostatic hyperplasia without lower urinary tract symptoms Category: Medical Qualifiers: Lower urinary tract symptom presence: symptoms absent Qualified Code(s): N40.0 - Benign prostatic hyperplasia without lower urinary tract symptoms Plan: Patient follows up with urology (5) Dysphagia: Code(s): R13.10 - Dysphagia, unspecified Category: Medical Qualifiers: Dysphagia type: pharyngoesophageal phase Qualified Code(s): R13.14 - Dysphagia, pharyngoesophageal phase Plan: Family has declined G-tube placement presently aggressive dysphagia management with thickeners. (6) Left humeral fracture: Code(s): S42.302A - Unspecified fracture of shaft of humerus, left arm, initial encounter for closed fracture Category: Medical Qualifiers: Encounter type: sequela Fracture alignment: nondisplaced Fracture morphology: unspecified fracture morphology Fracture type: closed Humerus Location: surgical neck Qualified Code(s): S42.215S - Unspecified nondisplaced fracture of surgical neck of left humerus, sequela Plan: Followed up by orthopedics and continue keeping active Orders: Orders Lipid Panel Today E78.00 - Pure hypercholesterolemia, unspecified Influenza [id number] Immunization Today Z23 - Encounter for immunization Medications: New Fluarix Triv [id number] (PF) (flu vacc [id number] 6mos up(PF)) 0.5 mL IM ONCE 0.5 mL 0RF NS Z23 - Encounter for immunization
== END 2023-12-16 10:51 | disposition home or self-care (01) ==
PROVIDERS: PCP Internal Medicine; Visit Provider Internal Medicine
DX: E03.9 Hypothyroidism, unspecified (principal); K21.9 Gastro-esophageal reflux disease without esophagitis; F20.2 Catatonic schizophrenia; N40.0 Benign prostatic hyperplasia without lower urinary tract symptoms; R13.14 Dysphagia, pharyngoesophageal phase; S42.215 Unspecified nondisplaced fracture of surgical neck of left humerus; Z23 Encounter for immunization

== ENCOUNTER → 2023-12-16 09:48 | Outpatient (BNVA) | payer MEDICARE, MEDICAID, SELFPAY | PROVIDERS: PCP Internal Medicine; Visit Provider Internal Medicine | DX: Z23 Encounter for immunization (principal); E03.9 Hypothyroidism, unspecified; K21.9 Gastro-esophageal reflux disease without esophagitis; F20.2 Catatonic schizophrenia; N40.0 Benign prostatic hyperplasia without lower urinary tract symptoms; R13.14 Dysphagia, pharyngoesophageal phase; S42.215 Unspecified nondisplaced fracture of surgical neck of left humerus | CPT/HCPCS: 90471; 90656; 99212 ==

== ENCOUNTER 2024-01-04 13:14 | Outpatient (AMB) | payer MEDICARE, MEDICAID, SELFPAY ==
[2024-01-04 13:18] VITALS: BP 100/58; PULSE 94; O2SAT 97; BMI 20.6
--- NOTE | 2024-01-04 13:18 | A.OFFVIS_ITS ---
Intake Vital Signs 01/04/24 13:18 Height 5 ft 5 in Weight 124 lb BMI 20.6 BP 100/58 L Blood Pressure Location Lt brachial Position Sitting Pulse 94 Pulse Source Pulse Oximeter Pulse Oximetry (%) 97 Oxygen Delivery Method Room Air Intake Visit Reasons: AWV Intake Note: Patient is here for an Annual Wellness Visit. Allergies clindamycin Allergy (Unknown, Verified 01/04/24 13:37) Unknown Sulfa (Sulfonamide Antibiotics) [SULFA(SULFONAMIDE ANTIBIOTICS)] Allergy (Unknown, Verified 01/04/24 13:37) UNKNOWN sulfamethoxazole [From Bactrim] Allergy (Unknown, Verified 01/04/24 13:37) Unknown trimethoprim [From Bactrim] Allergy (Unknown, Verified 01/04/24 13:37) Unknown Medication List - Last Reconciled 01/04/24 by Enedina Head PA-C ascorbic acid (vitamin C) (Liquid C) 500 mg (5 mL) PO DAILY blood pressure monitor (Blood Pressure Kit) As directed pediatric cuff clozapine 200 mg PO BEDTIME clozapine 50 mg PO BID compressor, for nebulizer As directed desmopressin 0.1 mg PO BID doxazosin 4 mg PO DAILY ferrous sulfate 220 mg (5 mL) PO DAILY fluoxetine 40 mg PO QAM levetiracetam (Keppra) 500 mg (5 mL) PO BID levothyroxine 25 mcg PO DAILY@0600 linaclotide (Linzess) 290 mcg PO DAILY lorazepam 0.5 mg PO DAILY omeprazole 20 mg PO BID ondansetron HCl 8 mg PO BID PRN polyethylene glycol 3350 17 grams PO DAILY PRN [pull ups small As directed] [right AFO As directed] sennosides (senna) 17.2 mg (2 x 8.6 mg) PO DAILY zinc oxide 12.8% (Triple Paste) 1 appl See Protocol topical DAILY HPI AWV HPI Details 68-year-old male with past medical histo ry of mental and behavioral problems/schizophrenia, hypothyroid, GERD, BPH last seen by Dr. Reeves 12/16/2023 coming in for annual wellness visit. Patient presents today with medical service representative from [facility]. Colonoscopy is up-to-date 2020 with follow up in 5 years. Tetanus and flu vaccine need to be updated as well as blood work. He has no acute concerns today. 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 Paraparesis Metabolic encephalopathy COVID-19 Adult failure to thrive MVP (mitral valve prolapse) Mentally challenged Anxiety GERD (gastroesophageal reflux disease) Impaired glucose tolerance Tracheomalacia Schizophrenia Tubular adenoma of colon COPD (chronic obstructive pulmonary disease) Pneumonia Anemia Hypothyroid Depression Asthma Oropharyngeal dysphagia Surgical History History of bronchoscopy History of colonoscopy S/P tracheoplasty History of esophagogastroduodenoscopy (EGD) Family History Family/Other Unknown family medical history Father Hypertension Mother Unknown family medical history Brother No problems noted. Sister No problems noted. Social History Household Members: Unknown / Unable to assess Household Members Other:: Resides in Skilled Nursing Housing: Other Housing Other:: assisted Are you a primary home health care case manager to a significant other at home: No Unable to assess alcohol history related to: Unable to respond and Unknown Alcohol intake: former Comment: 1:1 sitter Patient Tobacco Use Status: Never used Tobacco Tobacco use type: Cigarette e-Cigarette/Vaping Use: Never Used Second Hand Smoke Exposure: No Advance Directives Date on File: 11/28/20 service: No Current occupational status: disabled Cognitive needs: Yes Hearing needs: No Vision needs: No Questionnaire Medicare Wellness Checkup What [age] What gender do you identify with?: male During the past 4 weeks, how much have you been bothered by emotional problems such as feeling anxious, depressed, irritable, sad or downhearted, and blue?: not at all During the past 4 weeks, has your physical & emotional health limited your social activities with family, friends, neighbors, or groups?: slightly During the past 4 weeks, how much bodily pain have you generally had?: no pain During the past 4 weeks, was someone available to help you if you needed & wanted help?: yes, as much as I wanted During the past 4 weeks, what was the hardest physical activity you could do for at least 2 minutes?: very light Can you get to places out of walking distance without help? (For eg., can you travel alone on buses, taxis or drive your car?): Yes Can you go shopping for groceries or clothes without someone's help?: No Can you prepare your own meals?: No Can you do your housework without help?: Yes Because of any health problems, do you need the help of another person with your personal care needs such as eating, bathing, dressing or getting around the house?: Yes Can you handle your own money without help?: No During the past 4 weeks, how would you rate your health in general?: good During the past 4 weeks how have things been going for you?: pretty well Are you having difficulties driving your car?: not applicable, I don't use a car Do you always fasten your seat belt when you are in a car?: yes, usually During past 4 weeks, have you been bothered by the following: never: Falling or dizzy when standing up, Sexual problems?, Trouble eating well?, Teeth or denture problems?, Problems using the telephone? and Tiredness or fatigue? Have you fallen 2 or more times in the past year?: No Are you afraid of falling?: No Are you a smoker?: no During the past 4 weeks, how many drinks of wine, beer, or other alcoholic beverages did you have?: no alcohol at all Do you exercise for about 20 minutes 3 or more times a week?: no, I usually do not exercise this much Have you been given information to help with the following?: no: Hazards in your house that might hurt you? and no: Keeping track of your medications? How often do you have trouble taking medicines the way you have been told to take them?: I always take medicine as prescribed How confident are you that you can control & manage most of your health problems?: somewhat confident What is your race?: White PHQ-9 Over the last 2 weeks, how often have you been bothered by any of the following problems? 1. Little interest or pleasure in doing things: not at all 2. Feeling down, depressed, or hopeless: not at all 3. Trouble falling or staying asleep, or sleeping too much: not at all 4. Feeling tired or having little energy: several days 5. Poor appetite or overeating: not at all 6. Feeling bad about yourself - or that you are a failure or have let yourself or your family down: not at all 7. Trouble concentrating on things, such as reading the newspaper or watching television: not at all 8. Moving or speaking so slowly that other people could have noticed. Or the opposite - being so fidgety or restless that you have been moving around a lot more than usual: not at all 9. Thoughts that you would be better off or of hurting yourself in some way: not at all Total score: 1 Depression Screening Interpretation: Negative Depression Screening Done: Yes 01304 - PHQ-9 Billing: Yes Source: Developed by Drs. Anthony Lyle, Adriana Ji, Gunner Snider and colleagues, with an educational jia from [employer]. Review of Systems Const Denies body aches, Denies fatigue, Denies fever(s), Denies frequent falls, Denies headache(s) and Denies weakness Eyes Reports no additional complaints and Denies change in vision ENT Denies dysphagia, Denies dizziness, Denies facial pain, Denies headache(s), Denies nasal congestion and Denies odynophagia Card Denies chest pain, Denies syncope, Denies irregular heart rhythm, Denies leg edema, Denies lightheadedness and Denies dyspnea Resp Denies cough and Denies dyspnea GI Denies abdominal pain, Denies constipation, Denies dysphagia, Denies dyspepsia, Denies diarrhea, Denies nausea, Denies odynophagia and Denies vomiting Denies dysuria, Denies urinary frequency, Denies urinary hesitancy and Denies urinary urgency Musc Denies back pain and Denies myalgias Skin/Breast Reports system reviewed and no additional complaints, except as documented Neuro Denies dizziness, Denies syncope, Denies frequent falls, Denies headache(s) and Denies weakness Psych Reports no additional complaints Endo Denies fatigue Physical Exam Vital Signs: Last Vital Signs Pulse 94 01/04/24 13:18 BP 100/58 L 01/04/24 13:18 Pulse Ox 97 01/04/24 13:18 Oxygen Delivery Method Room Air 01/04/24 13:18 BMI result Body Mass Index 20.6 Const General: cooperative, healthy appearing, comfortable and no acute distress Orientation/consciousness: patient oriented x3 HEENT Head: Yes normocephalic Ears: hearing grossly normal bilaterally, external ears normal, TM's normal bilaterally and EAC's normal General nose exam: Normal external nose present Face and sinus: Yes normal facial exam and Yes sinuses nontender Mouth: Normal oral and palatal mucosa present and tongue normal Throat: Yes posterior oropharynx normal Eyes General: appearance normal, both eyes and all related structures Conjunctivae: conjunctivae normal Pupils: Equal, round and reactive pupils present EOM: EOMs intact bilaterally and No Nystagmus present Neck Neck: Yes normal visual inspection, Yes full ROM and Yes no lymphadenopathy Chest Chest palpation & inspection: normal inspection of the chest Resp Effort & Inspection: normal respiratory effort Auscultation: clear to auscultation bilaterally, no crackles, no rales, no rhonchi, no wheezes and breath sounds present Cardio Rate: regular rate Rhythm: regular rhythm Peripheral pulses: radial pulses present and dorsalis pedis present GI Inspection: Yes normal to inspection and No Abdominal wall edema Palpation (GI): Soft to palpation, not firm and nontender Auscultation: normal bowel sounds Rectal Exam - Male: Yes deferred General: Yes no CVA tenderness Back/Spine/Pelvis Back: no CVA tenderness Skin General skin exam: no rashes or lesions noted Neuro General: patient oriented x3 Cranial nerves: Yes Equal, round and reactive pupils present, Yes Midline tongue present, Yes Ability to bilaterally elevate shoulders present and No Nystagmus present Gait exam (Neuro): Normal gait present Extrem General: Yes normal to inspection, Yes full ROM, No no pedal edema and No edema Psych Speech and movement: Normal speech and movement present Affect: normal affect Office Procedures Flu Questionnaire Does the patient have a severe egg allergy?: No Does the patient have severe life threatening allergies?: No Does the patient have a fever or illness today?: No Has the patient ever had Guillain-[place] Syndrome?: No Has the patient ever had any past reaction to a flu shot?: No Immunizations Fluarix Triv [id number] (PF) 45 mcg (15 mcg x 3)/0.5 mL IM syringe Performing Provider: Enedina Head PA-C Performing Location: [facility] Administered by: CODY Quigley on 01/04/24 14:08 Dose Route Admin Location Dispensed Lot Number Expiration Date ND Automatic Coil Machine Operator 0.5 mL IM Left Deltoid 0.5 mL [id number] 08/21/24 97600-250-86 [employer] VIS Given Date VIS Provided VIS Publication Date 01/04/24 Single Vaccine 20 Eligibility Eligibility Date Funding Source Not VFC Eligible 01/04/24 Private tetanus-diphtheria toxoids-Td 2 Lf unit-2 Lf unit/0.5 mL IM suspension Performing Provider: Enedina Head PA-C Performing Location: [facility] Administered by: CODY Quigley on 01/04/24 14:09 Dose Route Admin Location Dispensed Lot Number Expiration Date ND Automatic Coil Machine Operator 0.5 mL IM Right Deltoid 0.5 mL [id number] 04/03/24 [address]-9 [employer] VIS Given Date VIS Provided VIS Publication Date 01/04/24 Single Vaccine 20 Eligibility Eligibility Date Funding Source Not VFC Eligible 01/04/24 State [facility] [[email or web address] Assessment & Plan Assessment & Plan (1) BPH (benign prostatic hyperplasia): Code(s): N40.0 - Benign prostatic hyperplasia without lower urinary tract symptoms Qualifiers: Lower urinary tract symptom presence: symptoms absent Qualified Code(s): N40.0 - Benign prostatic hyperplasia without lower urinary tract symptoms Plan: Continue to follow with Urology (2) Iron deficiency anemia: Code(s): D50.9 - Iron deficiency anemia, unspecified Plan: Continue to monitor the blood work. (3) Schizophrenia: Code(s): F20.9 - Schizophrenia, unspecified Qualifiers: Schizophrenia type: catatonic schizophrenia Qualified Code(s): F20.2 - Catatonic schizophrenia Plan: BUN current medication regimen and continue to follow up with Psychiatry. (4) GERD (gastroesophageal reflux disease): Code(s): K21.9 - Gastro-esophageal reflux disease without esophagitis Qualifiers: Esophagitis presence: without esophagitis Qualified Code(s): K21.9 - Gastro-esophageal reflux disease without esophagitis Plan: Avoid trigger foods such as citrus, tomato products, soda, caffeine, spicy foods and other foods that may be irritating to your stomach. Avoid laying flat 3-4 hours after eating and elevate the head of the bed 30 degrees to prevent acid from moving into the esophagus. Continue on omeprazole (5) Hypothyroid: Code(s): E03.9 - Hypothyroidism, unspecified Qualifiers: Hypothyroidism type: acquired Qualified Code(s): E03.9 - Hypothyroidism, unspecified Plan: Continue on present medication and we will continue to monitor with blood work. (6) Annual wellness visit: Code(s): Z00.00 - Encounter for general adult medical examination without abnormal findings Plan: Patient is up-to-date on all recommended routine screenings and vaccinations for his age. Tetanus and flu vaccine were updated today. [place] of care was reviewed with patient patient was provided with a written screening schedule. Healthcare proxy/ MOLST forms were reviewed with patient patient. Per medical service representative patient has these forms and has brought them into our office. Plan This note was constructed using voice recognition software. While every effort has been made to ensure accuracy and sewer contractor, still areas may have been included sometimes these areas may affect the content or meeting of the given symptoms. Total time spent caring for the patient today was 30 minutes. This includes time spent before the visit reviewing the chart, time spent during the visit, and time spent after the visit and documentation. Orders: Orders Influenza [id number] Immunization Today Z23 - Encounter for immunization PSA, Ultra Sensitive Today Z00.00 - Encounter for general adult medical examination without abnormal findings Td State Immunization Today Z23 - Encounter for immunization Medications: New Fluarix Triv [id number] (PF) (flu vacc [id number] 6mos up(PF)) 0.5 mL IM ONCE 0.5 mL 0RF NS Z23 - Encounter for immunization tetanus-diphtheria toxoids-Td 0.5 mL IM ONCE 0.5 mL 0RF Z23 - Encounter for immunization Refilled ascorbic acid (vitamin C) (Liquid C) 500 mg (5 mL) PO DAILY 120 mL 0RF levetiracetam (Keppra) 500 mg (5 mL) PO BID 473 mL 3RF levothyroxine Crush the pill 25 mcg PO DAILY@0600 30 tabs 3RF ondansetron HCl 8 mg PO BID PRN 20 tabs 0RF nausea and vomiting R11.0 - Nausea polyethylene glycol 3350 17 grams PO DAILY PRN 238 grams 6RF Constipation sennosides (senna) 17.2 mg (2 x 8.6 mg) PO DAILY 60 tabs 6RF desmopressin 0.1 mg PO BID 60 tabs 0RF ferrous sulfate 220 mg (5 mL) PO DAILY 473 mL 2RF omeprazole 20 mg PO BID 60 caps 6RF linaclotide (Linzess) 290 mcg PO DAILY 30 caps 6RF K59.00 - Constipation, unspecified Quality Reporting (2019) Depression/Bipolar (159/160/161/177) PHQ-9: Total score: 1 Coding Level of Care Code Medicare First (G0438) Diagnoses Benign prostatic hyperplasia without lower urinary tract symptoms N40.0 Lower urinary tract symptom presence: symptoms absent Iron deficiency anemia D50.9 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 Gastroesophageal reflux disease without esophagitis K21.9 Esophagitis presence: without esophagitis Acquired hypothyroidism E03.9 Hypothyroidism type: acquired Annual wellness visit Z00.00 CPT Codes Advance Care Planning - Advance Care Planning discussion: On file, no changes ([id number]) Advance Care Planning - Time spent: 1-15 minutes, on File ([id number]) Additional Codes PHQ-9 - 86462 - PHQ-9 Billing: Yes ([id number]) Advance Care Planning Advance Care Planning discussion: On file, no changes Date of discussion: 01/04/24 Who was present: Patient, [facility] medical service representative Forms completed: Health Care Proxy and MOLST Time spent: 1-15 minutes, on File Actual minutes spent: 5 Did not discuss due to Cultural/Spiritual beliefs: No
== END 2024-01-04 14:49 | disposition home or self-care (01) ==
PROVIDERS: PCP Internal Medicine
DX: Z00.00 Encounter for general adult medical examination without abnormal findings (principal); N40.0 Benign prostatic hyperplasia without lower urinary tract symptoms; D50.9 Iron deficiency anemia, unspecified; F20.2 Catatonic schizophrenia; K21.9 Gastro-esophageal reflux disease without esophagitis; E03.9 Hypothyroidism, unspecified; Z23 Encounter for immunization

== ENCOUNTER → 2024-01-04 13:14 | Outpatient (BNVA) | payer MEDICARE, MEDICAID, SELFPAY | PROVIDERS: PCP Internal Medicine | DX: Z00.00 Encounter for general adult medical examination without abnormal findings (principal); Z23 Encounter for immunization; N40.0 Benign prostatic hyperplasia without lower urinary tract symptoms; D50.9 Iron deficiency anemia, unspecified; F20.2 Catatonic schizophrenia; K21.9 Gastro-esophageal reflux disease without esophagitis; E03.9 Hypothyroidism, unspecified | CPT/HCPCS: 90471; 90472; 90656; 90714; 96127 ==

== ENCOUNTER 2024-02-14 08:39 | Outpatient (AMB) | payer MEDICARE, MEDICAID, SELFPAY ==
--- OUTSIDE RECORDS SUMMARY | 2024-02-14 08:42 | XMS_ITS | Clinical Summary ---
Author Organization Unknown Care Team Providers Care Home Lighting Adviser Name Role Phone EWA LANDIN MD Unavailable Unavailable PITA PT, PARKER Unavailable Unavailable RAÚL PT, ROSA Unavailable Unavailable Payers Payer Name Policy Type Policy Number Effective Date Expira tion Date [place]IC[place] - [place] [id number] MEDICAID [facility] [id number] Problems Condition Name Condition Details Condition Category Status Onset Date Resolution Date Last Treatment Date Treating Clinician Comments URINARY TRACT INFECTION, SITE NOT SPECIFIED Active 02-22 00:00: 00 CHRONIC OBSTRUCTIVE PULMONARY DISEASE, UNSPECIFIED Active 02-22 00:00: 00 HYPOTHYROIDI SM, UNSPECIFIED Active 02-22 00:00: 00 OTHER CONSTIPATION Active 02-22 00:00: 00 EPILEPSY, UNSP, NOT INTRACTABLE, WITHOUT STATUS EPILEPTICUS Active 02-22 00:00: 00 RHEUMATIC MITRAL VALVE DISEASE, UNSPECIFIED Active 02-22 00:00: 00 HYPOTENSION, UNSPECIFIED Active 02-22 00:00: 00 ANXIETY DISORDER, UNSPECIFIED Active 02-22 00:00: 00 DEPRESSION, UNSPECIFIED Active 02-22 00:00: 00 SCHIZOPHRENI A, UNSPECIFIED Active 02-22 00:00: 00 ANEMIA, UNSPECIFIED Active 02-22 00:00: 00 GASTRO-ESOPH AGEAL REFLUX DISEASE WITHOUT ESOPHAGITIS Active 02-22 00:00: 00 FOOT DROP, RIGHT FOOT Active 02-22 00:00: 00 FOOT DROP, LEFT FOOT Active 02-22 00:00: 00 DYSPHAGIA, UNSPECIFIED Active 02-22 00:00: 00 PERSONAL HISTORY OF COVID-19 Active 02-22 00:00: 00 Allergies, Adverse Reactions, Alerts Allergy Name Allergy Type Status Severity Reaction(s) Onset Date Inactive Date Treating Clinician Comments CLINDAMYCIN HCL Propensity to adverse reactions Active 11-12 14:21: 14 Medications Ordered Medication Name Filled Medication Name Start Date Stop Date Current Medication? Ordering Clinician Indication Dosage Frequency Signature (SIG) Comments Components Linzess 290 mcg capsule 10-23 00:00: 00 Yes [id number] 1 capsule DAILY 1 capsule DAILY (route: oral) Med Classific ation: Gastroint estinal Therapy Agents levothyroxi ne 25 mcg tablet 10-21 00:00: 00 Yes [id number] 1 tablet DAILY 1 tablet DAILY (route: oral) Med Classific ation: Endocrine levetiracet am 500 mg tablet 10-17 00:00: 00 Yes [id number] Per instruc tions TWICE DAILY Per instructio ns TWICE DAILY (route: oral) Med Classific ation: Central Nervous System Agents clozapine 100 mg tablet 10-09 00:00: 00 Yes [id number] 2.5 tablet BEDTIME 2.5 tablet BEDTIME (route: oral) Med Classific ation: Central Nervous System Agents clozapine 100 mg tablet 10-09 00:00: 00 11-12 00:00 :00 No [id number] Per instruc tions Per instructio ns (route: oral) Med Classific ation: Central Nervous System Agents clozapine 25 mg tablet 10-09 00:00: 00 Yes [id number] .5 tablet EVERY AM .5 tablet EVERY AM (route: oral) Med Classific ation: Central Nervous System Agents fluoxetine 20 mg capsule 10-08 00:00: 00 Yes [id number] 2 capsule DAILY 2 capsule DAILY (route: oral) Med Classific ation: Central Nervous System Agents fluoxetine 20 mg capsule 10-08 00:00: 00 11-12 00:00 :00 No [id number] Per instruc tions Per instructio ns (route: oral) Med Classific ation: Central Nervous System Agents albuterol sulfate HFA 90 mcg/actuati on aerosol inhaler 11-10 00:00: 00 Yes [id number] 1 puff NEEDED 1 puff NEEDED (route: inhalation ) Med Classific ation: Respirato ry Therapy Agents desmopressi n 0.1 mg tablet 11-10 00:00: 00 Yes [id number] 1 tablet 2 TIMES DAILY 1 tablet 2 TIMES DAILY (route: oral) Med Classific ation: Endocrine lorazepam 0.5 mg tablet 11-10 00:00: 00 Yes [id number] 1 tablet BEDTIME 1 tablet BEDTIME (route: oral) Med Classific ation: Central Nervous System Agents omeprazole 20 mg tablet,coty yed release 11-10 00:00: 00 Yes [id number] 1 tablet 2 TIMES DAILY 1 tablet 2 TIMES DAILY (route: oral) Med Classific ation: Gastroint estinal Therapy Agents Senna Laxative 8.6 mg tablet 11-10 00:00: 00 Yes [id number] 2 tablet BEDTIME 2 tablet BEDTIME (route: oral) Med Classific ation: Gastroint estinal Therapy Agents Vital Signs Vital Name Observation Time Observation Value Commen ts Temperature 2021-12-03 10:10:00.000 98.7 [degF] Temperature 2021-11-26 09:31:00.000 97.8 [degF] Temperature 2021-11-19 10:12:00.000 97.7 [degF] Temperature 2021-11-12 14:18:00.000 97.1 [degF] Pulse 2021-12-03 10:10:00.000 66 /min Pulse 2021-11-26 09:31:00.000 62 /min Pulse 2021-11-19 10:12:00.000 86 /min Pulse 2021-11-12 14:18:00.000 67 /min O2 Saturation (%) 2021-12-03 10:10:00.000 100 % O2 Saturation (%) 2021-11-26 09:31:00.000 99 % O2 Saturation (%) 2021-11-19 10:12:00.000 99 % Respirations 2021-12-03 10:10:00.000 16 /min Respirations 2021-11-26 09:31:00.000 16 /min Respirations 2021-11-19 10:12:00.000 16 /min Respirations 2021-11-12 14:18:00.000 18 /min Systolic Blood Pressure 2021-12-03 10:10:00.000 110 mm [Hg] Systolic Blood Pressure 2021-11-26 09:31:00.000 110 mm [Hg] Systolic Blood Pressure 2021-11-19 10:12:00.000 110 mm [Hg] Systolic Blood Pressure 2021-11-12 14:18:00.000 98 mm[ Hg] Diastolic Blood Pressure 2021-12-03 10:10:00.000 74 mm [Hg] Diastolic Blood Pressure 2021-11-26 09:31:00.000 70 mm [Hg] Diastolic Blood Pressure 2021-11-19 10:12:00.000 80 mm [Hg] Diastolic Blood Pressure 2021-11-12 14:18:00.000 62 mm [Hg] Plan of Treatment Planned Activity Planned Date Details Comments Future Scheduled Test PHYSICAL T HERAPIST TO EVALUATE PATIENT SECONDARY TO FUNCTIONAL DEFICITS/SAFETY CONCERNS. [code = PHYSICAL THERAPIST TO EVALUATE PATIENT SECONDARY TO FUNCTIONAL DEFICITS/SAFETY CONCERNS.] Future Scheduled Test PHYSICAL T HERAPIST TO ASSESS BEST PRACTICE INTERVENTIONS TO ASSIST PATIENTS TO IMPROVE OR STABILIZE MEDICAL STATUS AND PREVENT RE-HOSPITALIZATION. MEASURES INCLUDING REVIEW AND IDENTIFICATION OF CONCERNS FOR THE FOLLOWING AREAS: DRUG REGIMEN, ENVIRONMENTAL SAFETY ISSUES AND FALLS, PRESSURE ULCERS, PAIN, AND DISEASE MANAGEMENT. [code = PHYSICAL THERAPIST TO ASSESS BEST PRACTICE INTERVENTIONS TO ASSIST PATIENTS TO IMPROVE OR STABILIZE MEDICAL STATUS AND PREVENT RE-HOSPITALIZATION. MEASURES INCLUDING REVIEW AND IDENTIFICATION OF CONCERNS FOR THE FOLLOWING AREAS: DRUG REGIMEN, ENVIRONMENTAL SAFETY ISSUES AND FALLS, PRESSURE ULCERS, PAIN, AND DISEASE MANAGEMENT.] Future Scheduled Test PHYSICAL T HERAPY TO INSTRUCT PATIENT/CAREGIVER ON SAFE TRANSFER TECHNIQUES USING PROPER BODY MECHANICS AND EQUIPMENT. [code = PHYSICAL THERAPY TO INSTRUCT PATIENT/CAREGIVER ON SAFE TRANSFER TECHNIQUES USING PROPER BODY MECHANICS AND EQUIPMENT.] Future Scheduled Test PHYSICAL T HERAPY TO INSTRUCT PATIENT/CAREGIVER ON GAIT TRAINING TECHNIQUES USING APPROPRIATE ASSISTIVE DEVICE, PROPER BODY MECHANICS TO IMPROVE MOBILITY, AND PREVENT INJURY OF PATIENT AND/OR CAREGIVER. [code = PHYSICAL THERAPY TO INSTRUCT PATIENT/CAREGIVER ON GAIT TRAINING TECHNIQUES USING APPROPRIATE ASSISTIVE DEVICE, PROPER BODY MECHANICS TO IMPROVE MOBILITY, AND PREVENT INJURY OF PATIENT AND/OR CAREGIVER.] Future Scheduled Test PHYSICAL T HERAPY TO OBTAIN O2 SATS PRN VIA PULSE OXIMETER INDICATED FOR SHORTNESS OF BREATH, FATIGUE, WEAKNESS, ACTIVITY INTOLERANCE, AND/OR BASELINE MEASUREMENT FOR THERAPY TREATMENT. [code = PHYSICAL THERAPY TO OBTAIN O2 SATS PRN VIA PULSE OXIMETER INDICATED FOR SHORTNESS OF BREATH, FATIGUE, WEAKNESS, ACTIVITY INTOLERANCE, AND/OR BASELINE MEASUREMENT FOR THERAPY TREATMENT.] Future Scheduled Test PHYSICAL T HERAPY TO INSTRUCT PATIENT/CAREGIVER ON BALANCE AND BALANCE STRATEGIES TO IMPROVE SAFE MOBILITY AND REDUCE RISK FOR FALL AND INJURY [code = PHYSICAL THERAPY TO INSTRUCT PATIENT/CAREGIVER ON BALANCE AND BALANCE STRATEGIES TO IMPROVE SAFE MOBILITY AND REDUCE RISK FOR FALL AND INJURY ] Future Scheduled Test CLINICAL S LUIS FELIPESEDA 11/12/21 PATIENT IS A 66-YEAR-OLD MAN REFERRED TO HOME PHYSICAL THERAPY AFTER HOSPITALIZATION AND REHAB STAY SECONDARY TO A UTI CAUSING HIM INCREASED WEAKNESS AND CONFUSION. PATIENT WAS TREATED WITH MEDICATION AND IV FLUIDS AND TRANSFER TO REHAB. PATIENT WAS PREVIOUSLY IN THE EMERGENCY ROOM WITH WEAKNESS AND BILATERAL FOOT DROP WELL HYPOTENSION WITH DECREASED APPETITE. HE HAD A RECENT HOSPITALIZATION FOR BEING POSITIVE FOR COVID-[address] SCAN WHICH WAS SUGGESTIVE OF PERIPHERAL NEUROPATHY. PAST MEDICAL HISTORY INCLUDES ANEMIA, ANXIETY, ASTHMA, COPD, DEPRESSION, GERD, HYPOTHYROIDISM, MITRAL VALVE PROLAPSE, DYSPHAGIA, SCHIZOAFFECTIVE DISORDER. ALL DIAGNOSIS HAVE BEEN CONFIRMED WITH PRIMARY CARE PHYSICIAN. CURRENTLY PATIENT PRESENTS WITH DECREASED LOWER EXTREMITY STRENGTH AND DECREASED ENDURANCE LIMITING HIS ABILITY TO FUNCTION SAFELY ON HIS FEET. PATIENT REQUIRES STANDBY ASSIST TO AMBULATE INSIDE OF HIS HOME ON LEVEL SURFACES WITH FRONT-WHEELED WALKER. HE PRESENTS WITH NARROW BASIS SUPPORT AND FOOT DROP ON RIGHT INCREASING HIS RISK FOR TRIPPING AND FALLING. PATIENT HAD DIFFICULTY MANEUVERING OBJECTS AND TURNING INTO DOORWAYS REQUIRING VERBAL CUES TO MANAGE WALKER. PATIENT REQUIRED CLOSE SUPERVISION FOR ALL TRANSFERS WITH VERBAL CUES TO PROMOTE BETTER WEIGHT SHIFT OVER BASE OF SUPPORT. HE IS CONSIDERED A HIGH FALL RISK EVIDENT BY HIS TUG SCORE OF 23 SECONDS. PATIENT PRESENTED WITH POOR STANDING DYNAMIC BALANCE REQUIRING WALKER AT ALL TIMES HE WILL BENEFIT FROM CONTINUED PHYSICAL THERAPY SECONDARY TO THE ABOVE DEFICIT WHICH LIMIT HIS ABILITY TO FUNCTION SAFELY INSIDE AND OUTSIDE OF HIS HOME MAKING HIM HOMEBOUND. PATIENT IS EAGER TO IMPROVE HIS LEVEL OF FUNCTION AND WAS AN ACTIVE PARTICIPANT IN THE DEVELOPMENT OF HIS PLAN OF CARE. PLAN: 1X/WK X 4WKS FOR GAIT TRAINING, TRANSFER TRAINING, LOWER EXTREMITY STRENGTHENING AND BALANCE ACTIVITIES WITH THE DEVELOPMENT OF A HOME EXERCISE PROGRAM, PATIENT AND CAREGIVER EDUCATION FOR SAFETY AND FALL PREVENTION THE PATIENT IS RECEIVING HOMECARE DUE TO NEW ONSET/EXACERBATION OF: RECENT HOSPITALIZATION/INPATIENT ADMISSION RELATED TO: PATIENT WAS HOSPITALIZED SECONDARY TO WEAKNESS AND INCREASED CONFUSION. HE WAS FOUND TO HAVE A UTI AND LOW BLOOD PRESSURE NEW OR CHANGED MEDICATIONS PERTINENT TO THE PLAN OF CARE: NONE PATIENT LIVING SITUATION/CAREGIVER STATUS: PATIENT LIVES IN A LONG-TERM WITH THREE OTHER INDIVIDUALS AND HAS 24-HOUR CARE AVAILABLE RECENT FALLS: CAREGIVER ST [code = CLINICAL SUMMARY 11/12/21 PATIENT IS A 66-YEAR-OLD MAN REFERRED TO HOME PHYSICAL THERAPY AFTER HOSPITALIZATION AND REHAB STAY SECONDARY TO A UTI CAUSING HIM INCREASED WEAKNESS AND CONFUSION. PATIENT WAS TREATED WITH MEDICATION AND IV FLUIDS AND TRANSFER TO REHAB. PATIENT WAS PREVIOUSLY IN THE EMERGENCY ROOM WITH WEAKNESS AND BILATERAL FOOT DROP WELL HYPOTENSION WITH DECREASED APPETITE. HE HAD A RECENT HOSPITALIZATION FOR BEING POSITIVE FOR COVID-[address] SCAN WHICH WAS SUGGESTIVE OF PERIPHERAL NEUROPATHY. PAST MEDICAL HISTORY INCLUDES ANEMIA, ANXIETY, ASTHMA, COPD, DEPRESSION, GERD, HYPOTHYROIDISM, MITRAL VALVE PROLAPSE, DYSPHAGIA, SCHIZOAFFECTIVE DISORDER. ALL DIAGNOSIS HAVE BEEN CONFIRMED WITH PRIMARY CARE PHYSICIAN. CURRENTLY PATIENT PRESENTS WITH DECREASED LOWER EXTREMITY STRENGTH AND DECREASED ENDURANCE LIMITING HIS ABILITY TO FUNCTION SAFELY ON HIS FEET. PATIENT REQUIRES STANDBY ASSIST TO AMBULATE INSIDE OF HIS HOME ON LEVEL SURFACES WITH FRONT-WHEELED WALKER. HE PRESENTS WITH NARROW BASIS SUPPORT AND FOOT DROP ON RIGHT INCREASING HIS RISK FOR TRIPPING AND FALLING. PATIENT HAD DIFFICULTY MANEUVERING OBJECTS AND TURNING INTO DOORWAYS REQUIRING VERBAL CUES TO MANAGE WALKER. PATIENT REQUIRED CLOSE SUPERVISION FOR ALL TRANSFERS WITH VERBAL CUES TO PROMOTE BETTER WEIGHT SHIFT OVER BASE OF SUPPORT. HE IS CONSIDERED A HIGH FALL RISK EVIDENT BY HIS TUG SCORE OF 23 SECONDS. PATIENT PRESENTED WITH POOR STANDING DYNAMIC BALANCE REQUIRING WALKER AT ALL TIMES HE WILL BENEFIT FROM CONTINUED PHYSICAL THERAPY SECONDARY TO THE ABOVE DEFICIT WHICH LIMIT HIS ABILITY TO FUNCTION SAFELY INSIDE AND OUTSIDE OF HIS HOME MAKING HIM HOMEBOUND. PATIENT IS EAGER TO IMPROVE HIS LEVEL OF FUNCTION AND WAS AN ACTIVE PARTICIPANT IN THE DEVELOPMENT OF HIS PLAN OF CARE. PLAN: 1X/WK X 4WKS FOR GAIT TRAINING, TRANSFER TRAINING, LOWER EXTREMITY STRENGTHENING AND BALANCE ACTIVITIES WITH THE DEVELOPMENT OF A HOME EXERCISE PROGRAM, PATIENT AND CAREGIVER EDUCATION FOR SAFETY AND FALL PREVENTION THE PATIENT IS RECEIVING HOMECARE DUE TO NEW ONSET/EXACERBATION OF: RECENT HOSPITALIZATION/INPATIENT ADMISSION RELATED TO: PATIENT WAS HOSPITALIZED SECONDARY TO WEAKNESS AND INCREASED CONFUSION. HE WAS FOUND TO HAVE A UTI AND LOW BLOOD PRESSURE NEW OR CHANGED MEDICATIONS PERTINENT TO THE PLAN OF CARE: NONE PATIENT LIVING SITUATION/CAREGIVER STATUS: PATIENT LIVES IN A LONG-TERM WITH THREE OTHER INDIVIDUALS AND HAS 24-HOUR CARE AVAILABLE RECENT FALLS: CAREGIVER ST] Goal 2021-12-03 Patient Goal - T O GET STRONGER AND WALK BETTER Goal Provider Goal - PHYSICAL THERAPY EVALUATION TO BE COMPLETED WITH RECOMMENDATIONS AND/OR WRITTEN TREATMENT PLAN OF CARE ESTABLISHED FOR THE PHYSICIANS SIGNATURE Goal Provider Goal - PATIENT/CAREGIVER VERBALIZES UNDERSTANDING OF THE INITIAL BEST PRACTICE RECOMMENDATIONS. PHYSICIAN TO BE NOTIFIED APPROPRIATE FOR ANY CHANGES OR COMPLICATIONS. Goal Provider Goal - PATIENT/CAREGIVER WILL DEMONSTRATE SAFE TRANSFERS USING APPROPRIATE ASSISTIVE DEVICE, BODY MECHANICS AND EQUIPMENT TO IMPROVE FUNCTION Goal Provider Goal - PATIENT/CAREGIVER WILL DEMONSTRATE IMPROVED GAIT TECHNIQUES TO MINIMIZE RISK OF INJURY AND INCREASE FUNCTION Goal Provider Goal - PATIENT O2 SATURATION LEVEL WILL REMAIN WITHIN PARAMETERS TO IMPROVE FUNCTION Goal Provider Goal - PATIENT/CAREGIVER WILL DEMONSTRATE IMPROVED BALANCE AND REDUCE THE RISK OF FALLS AND INJURY TO IMPROVE FUNCTION Goal Provider Goal - A PLAN OF CARE WILL BE ESTABLISHED THAT MEETS PATIENT'S SKILLED NEEDS AND INCLUDES PATIENT GOAL FOR HOME HEALTH. Reason for Visit MINIMUM ASSIST WITH TRANSFER/AMBULATION/ADLS Encounters Start Date/Time End Date/Time Encounter Type Admission Type Attending [facility] Care Department Encounter ID Discharge Date Discharge Status Discharge Condition Discharge Reason Percent Goals Met 2021-11-12 00:00:00 2021-12-03 00:00:00 Outpatient NEW ADMISSION ROSA OLSEN [facility] [id number] 00:00:00 DISCHARGED /TRANSFERR ED TO ANOTHER TYPE OF HEALTH CARE INSTITUTIO N NOT DEFINED ELSEWHERE IN THIS CODE LIST MINIMUM ASSIST WITH TRANSFER/A MBULATION/ ADLS GOALS MET ( ONLY) 100.00
--- NOTE | 2024-02-14 08:44 | MHC.OFFVIS ---
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: No Accompanied by: Unknown Allergies clindamycin Allergy (Unknown, Verified 02/14/24 09:00) Unknown Sulfa (Sulfonamide Antibiotics) [SULFA(SULFONAMIDE ANTIBIOTICS)] Allergy (Unknown, Verified 02/14/24 09:00) UNKNOWN sulfamethoxazole [From Bactrim] Allergy (Unknown, Verified 02/14/24 09:00) Unknown trimethoprim [From Bactrim] Allergy (Unknown, Verified 02/14/24 09:00) Unknown Medication List - Last Reconciled 02/14/24 by Fabio Dey MD ascorbic acid (vitamin C) (Liquid C) 500 mg (5 mL) PO DAILY blood pressure monitor (Blood Pressure Kit) As directed pediatric cuff clozapine 200 mg PO BEDTIME clozapine 50 mg PO BID compressor, for nebulizer As directed desmopressin 0.1 mg PO BID doxazosin 4 mg PO DAILY ferrous sulfate 220 mg (5 mL) PO DAILY finasteride (Proscar) 5 mg PO DAILY 90 days fluoxetine 40 mg PO QAM levetiracetam (Keppra) 500 mg (5 mL) PO BID levothyroxine 25 mcg PO DAILY@0600 linaclotide (Linzess) 290 mcg PO DAILY lorazepam 0.5 mg PO DAILY omeprazole 20 mg PO BID ondansetron HCl 8 mg PO BID PRN polyethylene glycol 3350 17 grams PO DAILY PRN [pull ups small As directed] [right AFO As directed] sennosides (senna) 17.2 mg (2 x 8.6 mg) PO DAILY zinc oxide 12.8% (Triple Paste) 1 appl See Protocol topical DAILY HPI Comments Details: 02/14/2024-Dagoberto is a 68-year-old male with history of hypothyroidism, chronic constipation, GERD, schizoaffective disorder presents to the office today from a longterm. He is being followed due to BPH and history of UTI, hospitalized 01/30/2023 due to altered mental status and treated for UTI E coli ESBL. He is on cardura 4 mg daily. The patient is unable to give a urine sample today bladder scan is 108 mL. Script for Proscar 5 mg daily follow-up in months PSA prior. Review of chart: 04/29/2023--Dagoberto is here for office cystoscopy. He was seen last on 03/11/2023 due to urinary symptoms of urgency and ESBL UTI. He was started on Proscar and Flomax. He previously had a Renal US - 12/03/22- kidneys were within normal limits. Enlarged prostate with volume 84 mL and postvoid bladder volume 17.8 mm Diffuse irregularity and trabeculation thickening of the bladder. wall as well as a 1.1 cm bladder diverticulum. Cystoscopy findings: Significant trabeculations multiple diverticuli and wide mouth diverticulum right lateral wall. Trilobar enlargement of the prostate. Plan will be to continue Proscar and Flomax. 03/11/23--Dagoberto is a 67-year-old male with history of hypothyroidism, chronic constipation, GERD, schizoaffective disorder presents to the office today from a longterm. The patient was hospitalized a few weeks ago and treated for UTI. The patient is unable to provide much history and history is obtained from longterm staff as well as hospital documentation. The patient was admitted to [facility] [place] from 01/30-01/31 due to altered mental status and foul-smelling urine. Urine culture grew E coli ESBL which was noted to be sensitive to Levaquin and antibiotic therapy was adjusted. Mentation did improve following antibiotic therapy and he was discharged on 6 additional days of Levaquin for a total duration of therapy of 7 days. He had also been previously seen in the ED on 01/23 following a fall and had sustained left humerus fracture. Ortho had been consulted at that time and he did not require any surgical intervention. Recommended using sling but removing for range of motion Ed follow-up in the clinic in 6 weeks with repeat films. He was discharged back to longterm. Per longterm staff, the patient mentation has returned to baseline and there has been no further followed smelling urine. Bladder scan PVR 0 mL Review of imaging: Renal US - 12/03/22- No hydronephrosis. No renal calculi. Enlarged prostate with volume 84 mL and postvoid bladder volume 17.8 mm Diffuse irregularity and trabeculation thickening of the bladder wall as well as a 1.1 cm bladder diverticulum. [facility] Medical History Dysphagia Rash Balanitis UTI (urinary tract infection) Acute UTI Aspiration into airway Closed fracture of left proximal humerus Bladder wall thickening Acute bronchitis COVID-19 virus infection Aspiration pneumonia Esophageal diverticulum 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 Paraparesis Metabolic encephalopathy COVID-19 Adult failure to thrive MVP (mitral valve prolapse) Mentally challenged Anxiety GERD (gastroesophageal reflux disease) Impaired glucose tolerance Tracheomalacia Schizophrenia Tubular adenoma of colon COPD (chronic obstructive pulmonary disease) Pneumonia Anemia Hypothyroid Depression Asthma Oropharyngeal dysphagia Surgical History History of bronchoscopy History of colonoscopy S/P tracheoplasty History of esophagogastroduodenoscopy (EGD) Family History Family/Other Unknown family medical history Father Hypertension Mother Unknown family medical history Brother No problems noted. Sister No problems noted. Social History Household Members: Unknown / Unable to assess Household Members Other:: Resides in Residential Housing: Other Housing Other:: prison Are you a primary assistant child care teacher to a significant other at home: No Unable to assess alcohol history related to: Unable to respond and Unknown Alcohol intake: former Comment: 1:1 sitter Patient Tobacco Use Status: Never used Tobacco Tobacco use type: Cigarette e-Cigarette/Vaping Use: Never Used Second Hand Smoke Exposure: No Advance Directives Date on File: 11/28/20 service: No Current occupational status: disabled Cognitive needs: Yes Hearing needs: No Vision needs: No Review of Systems Const All systems reviewed & are unremarkable except as noted in HPI and below Reports no additional complaints Eyes Reports no additional complaints ENT Reports no additional complaints Card Reports no additional complaints Resp Reports no additional complaints GI Reports no additional complaints Reports as per HPI Musc Reports no additional complaints Skin/Breast Reports system reviewed and no additional complaints, except as documented Neuro Reports no additional complaints Psych Reports no additional complaints Endo Reports no additional complaints João/Lymph Reports no additional complaints Aller/Immun Reports no additional complaints Office Procedures Post Void Residual Post Residual Void Post Void Residual (PVR): 108 [id number] Void Residual by ultrasound Results Reviewed Results Reviewed: Collected: 01/28/23-UNK Status: COMP Req#: [id number] Received: 01/28/23 Source: [facility] Sp Desc: Urine gurrola Subm Dr: Odin Duncan Ordered: Urine Culture Procedure Result Verified Urine Culture Final 01/30/23-1021 Organism 1 Escherichia coli Quant > 100,000 cfu/mL ESBL Note: NOTE: Extended-Spectrum Beta-Lactamase enzyme present E coli M.I.C. RX --------- --- Ampicillin >=32 R Ceftriaxone 8 R Ertapenem <=0.12 S Gentamicin <=1 S Levofloxacin <=0.12 S Nitrofurantoin <=16 S Trimethoprim/Sulfamethoxazole <=20 S Date of Service: 12/03/22 EXAMINATION: US RETROPERITONEAL COMPLETE (RENAL) CLINICAL INFORMATION: Urinary tract infection, site not specified. COMPARISON: X-ray [facility] 10/11/2021 and 08/27/2015. CT abdomen and pelvis 08/17/2021. TECHNIQUE: Real-time imaging of the kidneys and bladder. Limited visualization due to bowel gas. FINDINGS: RIGHT KIDNEY: 10.0 x 3.5 x 4.5 cm (SAG x AP x TRV). No hydronephrosis. No renal calculi. Limited visualization. Renal cortical thickness is normal. 0.8 cm lower pole cyst is simple. There is no indication for followup imaging. LEFT KIDNEY: 9.8 x 4.1 x 4.2 cm (SAG x AP x TRV). No hydronephrosis. No renal calculi. Renal cortical thickness is normal. Limited visualization. BLADDER: Well distended. Diffuse irregularity and thickening with trabeculation. Bladder wall. Prevoid bladder diverticulum and measures 0.9 x 1.1 x 1.0 cm Bilateral ureteral jets are not demonstrated. Prevoid bladder volume is 132 mL. Postvoid bladder volume is 17.8 mL. ADDITIONAL FINDINGS: Prostate enlarged with volume 84 mL. IMPRESSION: 1. No hydronephrosis. No renal calculi. 2. Enlarged prostate with volume 84 mL and postvoid bladder volume 17.8 mm 3. Diffuse irregularity and trabeculation thickening of the bladder wall as well as a 1.1 cm bladder diverticulum. Assessment & Plan Assessment & Plan (1) BPH (benign prostatic hyperplasia): Code(s): N40.0 - Benign prostatic hyperplasia without lower urinary tract symptoms Category: Medical Qualifiers: Lower urinary tract symptom presence: symptoms absent Qualified Code(s): N40.0 - Benign prostatic hyperplasia without lower urinary tract symptoms (2) UTI due to extended-spectrum beta lactamase (ESBL) producing Escherichia coli: Code(s): N39.0 - Urinary tract infection, site not specified; B96.29 - Other Escherichia coli [E. coli] as the cause of diseases classified elsewhere; Z16.12 - Extended spectrum beta lactamase (ESBL) resistance Category: Medical (3) Bladder wall thickening: Code(s): N32.89 - Other specified disorders of bladder Category: Medical Plan Continue cardura 4 mg daily proscar 5 mg daily Follow-up in 6 months. PSA prior Orders: Orders AMB Post Void Residual by ultrasound Today N39.41 - Urge incontinence AMB Urinalysis Automated Today Z13.9 - Encounter for screening, unspecified Medications: New finasteride (Proscar) 5 mg PO DAILY 90 days 90 tabs 3RF bph Patient Instructions: This note is constructed in part using voice recognition software. 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 Coding Level of Care Code Est Pt Level 4 (93246) Diagnoses Benign prostatic hyperplasia without lower urinary tract symptoms N40.0 Lower urinary tract symptom presence: symptoms absent UTI due to extended-spectrum beta lactamase (ESBL) producing Escherichia coli N39.0; B96.29; Z16.12 Bladder wall thickening N32.89 CPT Codes Post Residual Void - PVR CPT Code: 09466-Gzcu Void Residual by ultrasound ([id number])
--- NOTE | 2024-02-14 09:01 | A.OFFVIS_ITS ---
Intake Visit Reasons: PVR Follow Up Allergies clindamycin Allergy (Unknown, Verified 02/14/24 09:00) Unknown Sulfa (Sulfonamide Antibiotics) [SULFA(SULFONAMIDE ANTIBIOTICS)] Allergy (Unknown, Verified 02/14/24 09:00) UNKNOWN sulfamethoxazole [From Bactrim] Allergy (Unknown, Verified 02/14/24 09:00) Unknown trimethoprim [From Bactrim] Allergy (Unknown, Verified 02/14/24 09:00) Unknown [facility] Medical History Dysphagia Rash Balanitis UTI (urinary tract infection) Acute UTI Aspiration into airway Closed fracture of left proximal humerus Bladder wall thickening Acute bronchitis COVID-19 virus infection Aspiration pneumonia Esophageal diverticulum 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 Paraparesis Metabolic encephalopathy COVID-19 Adult failure to thrive MVP (mitral valve prolapse) Mentally challenged Anxiety GERD (gastroesophageal reflux disease) Impaired glucose tolerance Tracheomalacia Schizophrenia Tubular adenoma of colon COPD (chronic obstructive pulmonary disease) Pneumonia Anemia Hypothyroid Depression Asthma Oropharyngeal dysphagia Surgical History History of bronchoscopy History of colonoscopy S/P tracheoplasty History of esophagogastroduodenoscopy (EGD) Family History Family/Other Unknown family medical history Father Hypertension Mother Unknown family medical history Brother No problems noted. Sister No problems noted. Social History Household Members: Unknown / Unable to assess Household Members Other:: Resides in Halfway Housing: Other Housing Other:: senior care Are you a primary acute care physical therapist to a significant other at home: No Unable to assess alcohol history related to: Unable to respond and Unknown Alcohol intake: former Comment: 1:1 sitter Patient Tobacco Use Status: Never used Tobacco Tobacco use type: Cigarette e-Cigarette/Vaping Use: Never Used Second Hand Smoke Exposure: No Advance Directives Date on File: 11/28/20 service: No Current occupational status: disabled Cognitive needs: Yes Hearing needs: No Vision needs: No Office Procedures Post Void Residual Post Residual Void Post Void Residual (PVR): 108 [id number] Void Residual by ultrasound Assessment & Plan Assessment & Plan Orders: Orders AMB Post Void Residual by ultrasound Today N39.41 - Urge incontinence AMB Urinalysis Automated Today Z13.9 - Encounter for screening, unspecified Coding CPT Codes Post Residual Void - PVR CPT Code: 70782-Pylz Void Residual by ultrasound ([id number])
== END 2024-02-14 09:21 | disposition home or self-care (01) ==
PROVIDERS: PCP Internal Medicine; Visit Provider Urology
DX: N40.0 Benign prostatic hyperplasia without lower urinary tract symptoms (principal); N39.0 Urinary tract infection, site not specified; B96.29 Other Escherichia coli [E. coli] as the cause of diseases classified elsewhere; Z16.12 Extended spectrum beta lactamase (ESBL) resistance; N32.89 Other specified disorders of bladder
CPT/HCPCS: 99214

== ENCOUNTER → 2024-02-14 08:39 | Outpatient (BNVA) | payer MEDICARE, MEDICAID, SELFPAY | PROVIDERS: PCP Internal Medicine; Visit Provider Urology | DX: N40.0 Benign prostatic hyperplasia without lower urinary tract symptoms (principal); N39.0 Urinary tract infection, site not specified; N32.89 Other specified disorders of bladder; B96.29 Other Escherichia coli [E. coli] as the cause of diseases classified elsewhere; Z16.12 Extended spectrum beta lactamase (ESBL) resistance | CPT/HCPCS: 51798; 99212 ==

== ENCOUNTER 2024-04-09 16:30 | Inpatient (IN) | payer MEDICARE, MEDICAID, SELFPAY ==
--- NOTE | ~2024-04-09 | XR_ITS ---
CLINICAL HISTORY: pain 1 view chest x-ray Comparison: CR/FL/SR - XR CHEST 1V - 10/27/23 20:54 EDT Findings: Low lung volumes. Platelike atelectasis in the mid right lung. No effusion or pneumothorax. There is increased opacity in the medial right lung, possibly in the right lower lobe Heart size is normal. No acute fracture. IMPRESSION: 1. Medial right lower lobe opacity which could be infection, aspiration or atelectasis. This document has been electronically signed by: Chepe Alvarado MD on 04/09/2024 18:30:14
[2024-04-09 16:54] VITALS: BP 142/72; PULSE 91; O2SAT 91
[2024-04-09 17:00] VITALS: BP 114/65; PULSE 88; RESP 16; TEMP 37.6; O2SAT 93; BMI 22.9
--- OUTSIDE RECORDS SUMMARY | 2024-04-09 17:09 | XMS_ITS | Encounter Summary ---
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 Social History Tobacco Use Types Packs/Day Years Used Date Smoking Tobacco: Never Assessed Sex and Gender Information Value Date Recorded Sex Assigned at Not on file Legal Sex Male 11:29 AM EST Gender Identity Not on file Sexual Orientation Not on file documented as of this encounter Plan of Treatment Not on file documented as of this encounter Procedures Procedure Name Priority Date/Time Associated Diagnosis Comments CBC WITH AUTO DIFFERENTIAL Routine 02/24/2024 3:45 PM EST Other care home (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 CBC AND DIFFERENTIAL Routine 02/24/2024 3:45 PM EST Other exterminator (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 documented in this encounter Results * (ABNORMAL) CBC auto differential (02/24/2024 3:45 PM EST) WBC 5.4 4.8 - 10.8 K/[facility] LAB HEMETOLOGY METHOD 02/24/2024 4:38 PM EST [facility] RBC 3.90(L) 4.50 - 5.50 M/[facility] LAB HEMETOLOGY METHOD 02/24/2024 4:38 PM [facility] Hemoglobin 11.9(L) 13.5 - 17.5 g/dL LAB HEMETOLOGY METHOD 02/24/2024 4:38 PM [facility] Hematocrit 36.3(L) 42.0 - 54.0 % LAB HEMETOLOGY METHOD 02/24/2024 4:38 PM [facility] MCV 92.8 79.0 - 98.0 FL LAB HEMETOLOGY METHOD 02/24/2024 4:38 PM [facility] MCH 30.4 27.0 - 32.0 pcg LAB HEMETOLOGY METHOD 02/24/2024 4:38 PM [facility] MCHC 32.8 32.0 - 37.0 g/dL LAB HEMETOLOGY METHOD 02/24/2024 4:38 PM [facility] RDW 13.2 11.0 - 15.0 % LAB HEMETOLOGY METHOD 02/24/2024 4:38 PM [facility] Platelets 294 130 - 400 K/mcL LAB HEMETOLOGY METHOD 02/24/2024 4:38 PM [facility] MPV 10.5 7.0 - 11.0 FL LAB HEMETOLOGY METHOD 02/24/2024 4:38 PM [facility] NRBC 0.0 <1.0 % LAB HEMETOLOGY METHOD 02/24/2024 4:38 PM [facility] NRBC Absolute 0.00 <0.10 K/mcL LAB HEMETOLOGY METHOD 02/24/2024 4:38 PM [facility] Neutrophils Relative 53.6 % LAB HEMETOLOGY METHOD 02/24/2024 4:38 PM [facility] Lymphocytes Relative 30.9 % LAB HEMETOLOGY METHOD 02/24/2024 4:38 PM [facility] Monocytes Relative 10.4 % LAB HEMETOLOGY METHOD 02/24/2024 4:38 PM EST [facility] Eosinophils Relative 3.1 % LAB HEMETOLOGY METHOD 02/24/2024 4:38 PM [facility] Basophils Relative 1.1 % LAB HEMETOLOGY METHOD 02/24/2024 4:38 PM [facility] Immature Granulocytes Relative 0.9 % LAB HEMETOLOGY METHOD 02/24/2024 4:38 PM EST [facility] Neutrophils Absolute 2.90 1.50 - 7.00 K/mcL LAB HEMETOLOGY METHOD 02/24/2024 4:38 PM [facility] Lymphocytes Absolute 1.67 1.00 - 5.00 K/mcL LAB HEMETOLOGY METHOD 02/24/2024 4:38 PM [facility] Monocytes Absolute 0.56 0.20 - 1.00 K/mcL LAB HEMETOLOGY METHOD 02/24/2024 4:38 PM EST [facility] Eosinophils Absolute 0.17 0.00 - 0.50 K/mcL LAB HEMETOLOGY METHOD 02/24/2024 4:38 PM EST [facility] Basophils Absolute 0.06 0.00 - 0.20 K/mcL LAB HEMETOLOGY METHOD 02/24/2024 4:38 PM [facility] Immature Granulocytes Absolute 0.05(H) 0.00 - 0.03 K/mcL LAB HEMETOLOGY METHOD 02/24/2024 4:38 PM [facility] Blood Venous blood specimen / Unknown Venipuncture / Unknown 02/24/2024 3:45 PM EST 02/24/2024 4:31 PM EST us Osmar Bowen MD LAB BLOOD ORDERABLES Final Resul t [facility] [address] [place] [address], documented in this encounter Visit Diagnoses Diagnosis Other care home (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 documented in this encounter Care Teams Activity Coordinator Relationship Specialty Start Date End Date Art Coughlin MD [address] [place] [address] PCP - General 06/30/22 documented as of this encounter
--- OUTSIDE RECORDS SUMMARY | 2024-04-09 17:09 | XMS_ITS | Clinical Summary ---
Author Organization [address] Address [address] [place] [address] Phone Care Team Providers Care Photographic Double Name Role Phone Art Coughlin MD Primary Care Provider [phone] Encounters Date Type Department Care Team Description 03/21/[address] 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 - Main Lab [address] [place] [address] Osmar Bowen MD Other fdc (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 02/24/[address] 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 - Main Lab [address] [place] [id number] from Last 3 Months Medical History Medical History Date Comments Adult failure to thrive DX:Adult failure to thrive Anemia DX:Anemia Anxiety disorder DX:Anxiety diso rder Ataxic gait DX:Ataxic gait Chronic obstructive pulmonar y disease (CMS/HCC) DX:Chronic obstructive pulmo nary disease ([facility]) Depression DX:Depression GERD (gastroesophageal reflux disease) DX:GERD (gastroesophageal reflux disease) Hypothyroidism DX:Hypothyroidis m Impaired glucose tolerance DX:Im paired glucose tolerance Mentally challenged DX:Mentally challenged Metabolic encephalopathy DX:Allen bolic encephalopathy Mitral valve prolapse DX:Mitral valve prolapse Oropharyngeal dysphagia DX:Oroph aryngeal dysphagia Paraparesis (CMS/HCC) DX:Parapar esis ([facility]) Pneumonia DX:Pneumonia Schizophrenia (CMS/HCC) DX:Schiz ophrenia ([facility]) Tracheomalacia DX:Tracheomalaci a Social History Tobacco Use Types Packs/Day Years Used Date Smoking Tobacco: Never Assessed Sex and Gender Information Value Date Recorded Sex Assigned at Not on file Legal Sex Male 11:29 AM EST Gender Identity Not on file Sexual Orientation Not on file Obstetrics History Plan of Treatment Health Maintenance Due Date Last Done Comments DTaP,Tdap,and Td Vaccines (1 - Tdap) 1973 Pneumococcal Vaccine: 50+ Ye ars (1 of 2 - PCV) 1973 Zoster Vaccines (1 of 2) 2004 RSV Immunization Patients 60 + Years Old (1 - Risk 60-74 years 1-dose series) 2014 Abdominal Aortic Aneurysm (A AA) Screen 01/20/2022 Cholesterol Screening (Lipid Panel) 01/20/2022 Colorectal Cancer Screening: Colonoscopy 01/20/2022 Depression Screening 01/20/2022 Falls Risk Assessment 01/20/2022 Hepatitis C Screening 01/20/2022 Medicare Annual Wellness Visit 01/20/2022 Social Influencers of Health Screening 01/20/2022 COVID-19 Vaccine ( - 2023-2 5 season) 2023 Influenza Vaccine (#1) 2023 HIB Vaccines Aged Out No longer eligi ble based on patient's age to complete this topic HPV Vaccines Aged Out No longer eligi ble based on patient's age to complete this topic Hepatitis A Vaccines Aged Out No long er eligible based on patient's age to complete this topic Hepatitis B Vaccines Aged Out No long er eligible based on patient's age to complete this topic IPV Vaccines Aged Out No longer eligi ble based on patient's age to complete this topic MMR Vaccines Aged Out No longer eligi ble based on patient's age to complete this topic Meningococcal ACWY Vaccine Aged Out N o longer eligible based on patient's age to complete this topic Meningococcal B Vacine Aged Out No lo nger eligible based on patient's age to complete this topic RSV Immunization Patients Un sparkle 20 months Aged Out No longer eligible b ased on patient's age to complete this topic Varicella Vaccines Aged Out No longer eligible based on patient's age to complete this topic Procedures Procedure Name Priority Date/Time Associated Diagnosis Comments CBC WITH AUTO DIFFERENTIAL Routine 03/21/2024 7:09 AM EST Other fdc (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 CBC AND DIFFERENTIAL Routine 03/21/2024 7:09 AM EST Other 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 WBC 4.8 4.8 - 10.8 K/mcL LAB HEMETOLOGY METHOD 03/21/2024 8:47 AM [facility] RBC 4.20(L) 4.50 - 5.50 M/mcL LAB HEMETOLOGY METHOD 03/21/2024 8:47 AM [facility] Hemoglobin 12.8(L) 13.5 - 17.5 g/dL LAB HEMETOLOGY METHOD 03/21/2024 8:47 AM [facility] Hematocrit 39.4(L) 42.0 - 54.0 % LAB HEMETOLOGY METHOD 03/21/2024 8:47 AM [facility] MCV 94.9 79.0 - 98.0 FL LAB HEMETOLOGY METHOD 03/21/2024 8:47 AM [facility] MCH 30.8 27.0 - 32.0 pcg LAB HEMETOLOGY METHOD 03/21/2024 8:47 AM [facility] MCHC 32.5 32.0 - 37.0 g/dL LAB HEMETOLOGY METHOD 03/21/2024 8:47 AM [facility] RDW 13.6 11.0 - 15.0 % LAB HEMETOLOGY METHOD 03/21/2024 8:47 AM [facility] Platelets 237 130 - 400 K/mcL LAB HEMETOLOGY METHOD 03/21/2024 8:47 AM [facility] MPV 11.0 7.0 - 11.0 FL LAB HEMETOLOGY METHOD 03/21/2024 8:47 AM [facility] NRBC 0.0 <1.0 % LAB HEMETOLOGY METHOD 03/21/2024 8:47 AM [facility] NRBC Absolute 0.00 <0.10 K/mcL LAB HEMETOLOGY METHOD 03/21/2024 8:47 AM [facility] Neutrophils Relative 55.6 % LAB HEMETOLOGY METHOD 03/21/2024 8:47 AM [facility] Lymphocytes Relative 31.2 % LAB HEMETOLOGY METHOD 03/21/2024 8:47 AM [facility] Monocytes Relative 8.9 % LAB HEMETOLOGY METHOD 03/21/2024 8:47 AM [facility] Eosinophils Relative 3.1 % LAB HEMETOLOGY METHOD 03/21/2024 8:47 AM [facility] Basophils Relative 1.0 % LAB HEMETOLOGY METHOD 03/21/2024 8:47 AM [facility] Immature Granulocytes Relative 0.2 % LAB HEMETOLOGY METHOD 03/21/2024 8:47 AM [facility] Neutrophils Absolute 2.69 1.50 - 7.00 K/mcL LAB HEMETOLOGY METHOD 03/21/2024 8:47 AM [facility] Lymphocytes Absolute 1.51 1.00 - 5.00 K/mcL LAB HEMETOLOGY METHOD 03/21/2024 8:47 AM [facility] Monocytes Absolute 0.43 0.20 - 1.00 K/mcL LAB HEMETOLOGY METHOD 03/21/2024 8:47 AM EST [facility] Eosinophils Absolute 0.15 0.00 - 0.50 K/[facility] LAB HEMETOLOGY METHOD 03/21/2024 8:47 AM EST [facility] Basophils Absolute 0.05 0.00 - 0.20 K/[facility] LAB HEMETOLOGY METHOD 03/21/2024 8:47 AM EST [facility] Immature Granulocytes Absolute 0.01 0.00 - 0.03 K/[facility] LAB HEMETOLOGY METHOD 03/21/2024 8:47 AM EST [facility] Blood Venous blood specimen / Unknown Venipuncture / Unknown 03/21/2024 7:09 AM EST 03/21/2024 8:03 AM EST us Osmar Bowen MD LAB BLOOD ORDERABLES Final Resul t [facility] [address] [place] [address], [place] [phone] from Last 3 Months Insurance MEDICAID - [place] MEDICARE Care Teams Photographic Double Relationship Specialty Start Date End Date Art Coughlin MD [address] [place] [address] PCP - General 06/30/22
--- OUTSIDE RECORDS SUMMARY | 2024-04-09 17:09 | XMS_ITS | Encounter Summary ---
Author Organization [facility] Address [address] [place] [address] Care Team Providers Care Cinder Crew Worker Name Role Phone Art Coughlin MD Primary Care Provider [phone] Encounter Details Date Type Department Care Team (Late st Contact Info) Description 01/25/2024 Lab Requisition [facility] - Main Lab [address] [facility] [place] [address] Social History Tobacco Use Types Packs/Day Years Used Date Smoking Tobacco: Never Assessed Sex and Gender Information Value Date Recorded Sex Assigned at Not on file Legal Sex Male 11:29 AM EST Gender Identity Not on file Sexual Orientation Not on file documented as of this encounter Plan of Treatment Not on file documented as of this encounter Visit Diagnoses Not on filedocumented in this encounter Care Teams Cinder Crew Worker Relationship Specialty Start Date End Date Art Coughlin MD [address] [place] [address] PCP - General 06/30/22 documented as of this encounter
--- OUTSIDE RECORDS SUMMARY | 2024-04-09 17:09 | XMS_ITS | Data Portability ---
Author Organization [place] [facility] Address [address] [place] [address] Care Team Providers Care Pens And Pencils Dipper Name Role Phone EWA LANDIN Primary Care Provider Assessment Encounter Date Assessment Date Assessment LastModified by Organization Details LastModified Time 12/22/2019 12/22/2019 Overview/History : 64 y/o M with PMHx sig for schizoaffective disorder, new to , presents for asymptomatic COVID testing for possible exposure 1 week ago. A staff member was exposed at another detention but continues to be asymptomatic, her COVID test is still pending. Exam: afebrile, RRR, normotensive, normal resps, non-toxic and well appearing. GENERAL: well developed, well nourished, appears stated age, sitting comfortably in no acute distress. HEENT: normocephalic, atraumatic, PERRL, EOMI, sclera anicteric, no conjunctival injection, nares patent. NECK: trachea midline, no masses. RESP: normal I:E, non-labored breathing, no cough or audible wheeze. CARDIO: RRR, normal S1, S2, radial pulses 2+ bilaterally. MUSK: normal strength, ROM, muscle tone, no atrophy. NEURO: awake, alert, no focal neuro deficits, moving all extremities spontaneously. SKIN: intact, good turgor, no cyanosis, pallor, ecchymosis, rash, lesions, abrasions, or lacerations. PSYCH: pleasant, appropriate mood and affect. DDx considered, but not limited to: none, asymptomatic COVID testing. Work up/Results: COVID test pending. Plan/Discussion: Quarantine for 14 days. Continue to monitor for symptoms. Your test results should be available in 2-3 days. We will call you with the results. Practice good hygiene, wash hands often. iza Not available 12/22/2019 11:57:20 Plan of Treatment Reminders Order Date Submit Date Provider Last Modified By Organization Details Last Modified Time Details Appointments None recorded. 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 Procedures None recorded. Surgeries None recorded. Imaging None recorded. Medication Orders None recorded. Patient TargetsNo targets recorded. Patient InstructionsNo instructions recorded. Reason for Referral None Reported. 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 This nucle ic acid ampli ficat ion test was devel oped and its perfo rmanc e kathy cteri stics deter mined by [facility]. Nucle ic acid ampli ficat ion tests inclu de PCR and TMA. This test has not been FDA clear ed or appro howard. This test has been autho rized by FDA under an Emerg ency Use Autho rizat ion (EUA) . This test is only autho rized for the durat ion of time the decla ratio n that circu mstan yen exist justi fying the autho rizat ion of the emerg ency use of in vitro diagn ostic tests for detec tion of SARS- CoV-2 virus and/o r diagn osis of COVID -19 infec tion under secti on 564(b )(1) of the Act, 21 U.S.C . 360bb b-3(b ) (1), unles s the autho rizat ion is termi nated or revok ed soone r. When diagn ostic testi ng is negat harmeet, the possi bilit y of a false negat harmeet resul t shoul d be consi dered in the tapan xt of a patie nt's recen t expos ures and the prese nce of clini magali signs and sympt oms consi stent with COVID -19. An indiv idual witho ut sympt oms of COVID - 19 and who is not jory ing SARS- CoV-2 virus would expec t to have a negat harmete (not detec karen) resul t in this assay . TEST PERFO RMED BY [facility], [place], [place] Not Available [facility] [address], [place], [address], 12/24/2019 21:09:23 Result Notes None recorded. Problems Name Problem SNOMED Code Status Onset Date Resolution Date Notes Provider Name and Address Organization Details Recorded Time Schizoaffecti ve disorder 50745969 Active 2019 LOWELL MOROCHO [address] [place], [address], [place] [facility] 0 11:11:35 Problem Notes None recorded. Medical Equipment None Reported. Allergies No known drug allergies Medications Name Sig Start Date Stop Date Status Note LastModified by Organization Details LastModified Time clozapine 100 mg tablet active Not Available Not Available No t Available levothyroxine 25 mcg tablet active Not Available Not Availabl e Not Available lamotrigine 25 mg tablet active Not Available Not Available No t Available lorazepam 0.5 mg tablet active Not Available Not Available No t Available omeprazole 20 mg capsule,delayed release active Not Available Not Available Not Available clozapine 25 mg tablet active Not Available Not Available Not Available fluoxetine 20 mg capsule active Not Available Not Available N ot Available lamotrigine 100 mg tablet active Not Available Not Available No t Available desmopressin 0.1 mg tablet active Not Available Not Availabl e Not Available Invega 6 mg tablet,extended release active Not Available Not Available Not Available Vitals Date Recorded Respiratory rate Heart rate Body temperature Oxygen saturation Oxygen saturation in Arterial blood by Pulse oximetry Systolic blood pressure Diastolic blood pressure Provider Name and Address Organization Details Last Updated DateTime 0 16 /min 78 /min 97.6 [degF] 99 % 99 % 110 mm[Hg] 62 mm[Hg] Not Available [facility] 0 11:00:41 Social History Question Answer Notes LastModified by Organizat ion Details LastModified Time Do You Have An Advance Directive? Yes iza Information not available 12/22/2019 What Is Your Code Status? Full Code iza Information not available 12/22/2019 Sex: Unknown Functional Status None recorded. Mental Status None recorded. Family History Nothing Reported. Medical History No medical history recorded. Past Encounters Encounter ID Performer Location Encounter Start Date Encounter Closed Date Diagnosis/Indication Diagnosis SNOMED-CT Code Diagnosis ICD10 Code Diagnosis Note [id number] LOWELL MOROCHO [facility] [address] [place] [address] 12/22/2019 10:49:56 12/23/2019 12:41:30 Exposure to SARS-CoV-2 798592806 Z20.828 Health Concerns Section Related Observation LastModified by Organization Detai ls LastModified Time None Recorded Concern Status LastModified by Organization Details LastModified Time None Recorded Advance Directives Directive Y: Payers Encounter Date Sequence Insurance Name Policy Number Policy Acosta Covered Member ID Acosta Member ID Guarantor Name 12/22/2019 1 [place] [employer] Dagoberto Patel Bridgettjennifer [id number] Dagoberto Mayen 12/22/2019 2 [place] [facility] Dagoberto Bridgettjennifer [id number] Dagoberto Mayen Notes Date Note Type Note Provider Name and Address Organization Details Recorded Time 12/22/2019 text/html 64 y/o M with PM Hx sig for schizoaffective disorder, new to , presents for asymptomatic COVID testing for possible exposure 1 week ago. A staff member was exposed at another detention but continues to be asymptomatic, her COVID test is still pending. LOWELL MOROCHO [address] [place], [address], [place] [facility] 12/22/2019 11:57:30
--- OUTSIDE RECORDS SUMMARY | 2024-04-09 17:09 | XMS_ITS | Patient Health Record ---
Author Organization [facility] Address [address] [place] [address] Care Team Providers Care Claims Analyst Name Role Phone Briana Reeves MD Primary Care Provider Anthony Patrick Unavailable [phone] ELIOT JOYNER Unavailable Unavailable ALLERGIES Allergen (clinical drug ingredient) Drug/Non Drug Allergy documented on EMR Reaction Allergy Type Onset Date Status sulfamethoxazole / trimethoprim Bactrim Unknown Drug Allergy Active REASON FOR REFERRAL No Information MEDICATIONS Medication SIG (Take, Route, Frequency, Duration) Notes Start Date End Date Status Ativan 0.5 MG 1 tablet at bedtime as needed Orally Once at HS and prn q12h Active Prilosec 20 MG 1 capsule 30 minutes before morning meal Orally Once a day Active LaMICtal 100 MG 1 tablet Orally bid Active Artificial Tear Acti ve PROzac 40 MG 1 capsule Orally qam Active Albuterol Sulfate 108 (90 Base) MCG/ACT 1 puff as needed Inhalation every 4 hrs Active Triamcinolone Acetonide Active DDAVP Active MiraLax Active Invega 12 mg 1 tablet in the morn ing Orally qam Active Clozaril 50 MG 1 tablet Orally qhs uless miss dose 200 mg Active Fluticasone Furoate-Vilanterol 100-25 MCG/INH 1 puff Inhalation bid Active Levothyroxine Sodium 25 MCG 1 tablet in the morning on an empty stomach Orally qam Active Flaxseed Oil Active IMMUNIZATIONS Vaccine Route Administration Date Status Comme nts Influenza Unknown 10/24/2019 Administered SOCIAL HISTORY Sex Assigned At : Social History Observation Description Sex Assigned At Unknown PROBLEMS Problem Type ICD Code Onset Dates Problem Status W/U Status Risk SNOMED Code Notes Problem Encounter for screening for malignant neoplasm of colon (Z12.11) Active confirmed Screening for malignant neoplasm of colon (161253525) Problem History of adenomatous polyp of colon (Z86.010) Active confirmed History of adenomatous polyp of colon (004322515) Problem Constipation (K59.00) Active confirmed Constipation (70598189) Problem Preprocedural examination (Z01.818) Active confirmed Preprocedural examination (965366362519044 ) Problem Irregular bowel habits (R19.8) Active confirmed Irregular bow el habits (703567543) PLAN OF TREATMENT Pending Test Test Name Order Date T4 (THYROXINE) 05/18/2012 TSH (THYROID STIMULATING HORMONE) 2012 CBC w DIFF 05/18/2012 CELIAC PANEL #10 05/18/2012 ENDOMYSIAL IGA 05/18/2012 TRANSGLUTAMINASE AB IGA 05/18/2012 TRANSGLUTAMINASE AB IGG 05/18/2012 Future Test Test Name Order Date COLONOSCOPY 05/18/2012 COLONOSCOPY 02/06/2020 Insurance Providers Payer Name Payer Address Payer Phone Subscriber Number Group Number Insured Name Patient Relationship to Insured Coverage Start Date Coverage End Date MEDICARE OF [place] [address] [place] [address] [id number] DELMAR RANGEL Self - patient is the insured MEDICAID OF [facility] [address] [place] [address] [id number] DELMAR RANGEL Self - patient is the insured MEDICAL (GENERAL) HISTORY Medical History History ICD Code Screening colonoscopy 2006-several tubular adenomas removed; reported colonoscopy elsewhere in 2012 Schizophrenia Asthma Mitral valve disease Jeannie esophagitis-EGD in 2004 Denies [place],DM,CVA,renal disease Surgical History Surgery Date(Month/Year)
--- OUTSIDE RECORDS SUMMARY | 2024-04-09 17:09 | XMS_ITS | Encounter Summary ---
Author Organization [facility] Address [address] [place] [address] Care Team Providers Care Tearer Press Clipping Name Role Phone Art Coughlin MD Primary Care Provider [phone] Encounter Details Date Type Department Care Team (Late st Contact Info) Description 02/24/[address] 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 Social History Tobacco Use Types Packs/Day Years Used Date Smoking Tobacco: Never Assessed Sex and Gender Information Value Date Recorded Sex Assigned at Not on file Legal Sex Male 11:29 AM EST Gender Identity Not on file Sexual Orientation Not on file documented as of this encounter Plan of Treatment Not on file documented as of this encounter Visit Diagnoses Diagnosis Other assisted (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 documented in this encounter Care Teams Tearer Press Clipping Relationship Specialty Start Date End Date Art Coughlin MD [address] [place] [address] PCP - General 06/30/22 documented as of this encounter
--- NOTE | 2024-04-09 17:24 | ECG_ITS ---
Test Reason : SOB Blood Pressure : */* mmHG Vent. Rate : 89 BPM Atrial Rate : 89 BPM P-R Int : 152 ms QRS Dur : 80 ms QT Int : 358 ms P-R-T Axes : 32 9 27 degrees QTcB Int : 435 ms Normal sinus rhythm Normal ECG When compared with ECG of 06-Feb-2023 18:39, No significant change was found Referred By: Alonzo Green Electronically Signed By: FAUSTINO DIAZ
--- NOTE | 2024-04-09 17:32 | PC.NURSE ---
Spoke with Kamille Zambrano (director of [facility]) at [phone]. No staff available to come to bedside to sit with the patient. Patient is not sectioned, not a danger to himself or others.
[2024-04-09 18:31] LABS: MANUAL DIFF FLAG NO
[2024-04-09 18:34] LABS: Appearance Urine Turbid; Basophils Percent Auto 0.2 % (0-2); Color Urine Yellow; Glucose Urine UA Negative (Negative); Hematocrit 38.2 % (42.0-52.0); Hemoglobin 12.7 g/dl (14.0-18.0); Imm Gran Abs Auto 0.05 X10*3/uL (0.00-0.03); Imm Gran Pct Auto 0.5 % (0.0-0.4); Leukocyte Esterase Urine Negative (Negative); Lymphocytes Absolute Auto 0.5 X10*3/uL (1.2-4.9); Mean Corpuscular HGB Conc 33.2 g/dl (31.0-36.0); Mean Corpuscular Hemoglobin 30.3 pg (27.0-33.0); Mean Corpuscular Volume 91.2 fL (80.0-98.0); Mean Platelet Volume 10.9 fL (9.4-12.4); Monocytes Absolute Auto 0.6 X10*3/uL (0.1-1.2); Monocytes Percent Auto 5.5 % (2-11); Neutrophils Absolute Auto 9.3 x10*3/uL (2.0-8.3); Neutrophils Percent Auto 88.8 % (45-73); Nitrite Urine Negative (Negative); PH 5.5 (5.0-9.0); Platelet Count 175 X10*3/uL (160-400); Red Blood Count 4.19 X10*6/uL (4.60-5.80); Red Cell Distribution Width 13.8 % (11.0-16.0); Specific Gravity - Urine 1.015 (1.005-1.025); UMIC TRIGGER UACC YES; Urine Blood Large (3+) (Negative); Urine Ketones Negative (Negative); Urine Protein 100 (2+) mg/dL (Neg-Trace); White Blood Count 10.4 X10*3/uL (4.8-10.8)
[2024-04-09 18:41] LABS: INTERNATIONAL NORM RATIO 1.1 (0.9-1.1); Prothrombin Time 12.6 SEC (10.9-12.4)
[2024-04-09 18:46] LABS: Alanine Aminotransferase 24 U/L (0-40); Albumin Level 3.6 g/dL (3.5-5.0); Alkaline Phosphatase 73 U/L (39-117); Anion Gap 18 (12-20); Aspartate Amino Transferase 111 U/L (5-37); Bilirubin Total 0.3 mg/dL (0.0-1.0); Blood Urea Nitrogen 52 mg/dL (9-16); Calcium 8.5 mg/dL (8.4-10.2); Carbon Dioxide 22 mmol/L (22-29); Chloride 104 mmol/L (96-108); Creatinine Clr Calc Pharmacy 18.4; Estimated Glomerular Filt Rate 20; Glucose Random 111 mg/dL (60-115); Lipase 10 U/L (8-78); Magnesium 2.1 mg/dL (1.6-2.6); Potassium 4.5 mmol/L (3.3-5.1); Sodium 139 mmol/L (135-145); Total Protein 6.9 g/dL (6.5-8.0)
[2024-04-09 18:51] LABS: B Type Natriuretic Peptide 10 pg/mL (<100)
[2024-04-09 18:56] LABS: Bacteria Urine None Seen (None Seen); Granular Casts Urine Present; WBC Urine 0-5 /HPF (0-5)
[2024-04-09 19:10] LABS: Influenza A PCR POSITIVE (Negative); Influenza B PCR NEGATIVE (Negative); Resp Syncy Virus RNA Qual PCR NEGATIVE (Negative); SARS COV2 PCR INHOUSE NEGATIVE (Negative)
[2024-04-09 20:06] LABS: Lactic Acid 2.3 mmol/L (0.5-2.0)
[2024-04-09] MEDS: 0.9 % Sodium Chloride 1,000 ML 999 ML IV (20:24)
[2024-04-09] MEDS: cefTRIAXone sodium 1 GM VIAL IVPUSH (20:30)
[2024-04-09] MEDS: Oseltamivir Phosphate 75 MG CAPSULE PO (20:30)
[2024-04-09] MEDS: Azithromycin 500 MG in 0.9 % Sodium Chloride 250 ML 125 MG IV (20:30)
--- NOTE | 2024-04-09 20:35 | ED_ITS ---
HPI - General Adult General Chief complaint: Upper Respiratory Symptoms Stated complaint: Flu +, pneumonia hx, diminished breath sounds Time Seen by Provider: 04/09/24 16:46 Source: patient, EMS and RN notes reviewed Mode of arrival: EMS Limitations: other (Poor historian) History of Present Illness ED Provider: Norma HPI narrative: 68-year-old male past medical history significant for schizophrenia, COPD, BPH, GERD, hypothyroidism presents for evaluation of weakness and hypoxia. Patient presents from a [facility] living [facility] environment This was described by staff as ?a cross between a SNF and a jail. The patient was diagnosed with the flu yesterday and has had decreased breath sounds. He was reportedly hypoxic to 87/88% on room air. He arrived via ambulance on 3 L via nasal cannula. He also had not made a significant amount of urine today and staff was concerned that he may be dehydrated The patient offers no complaints and reports that he feels well He was apparently diagnosed with influenza yesterday at the jail Related Data Home Medications ?Medication ?Instructions ?Recorded ?Confirmed clozapine 100 mg tablet 200 mg PO BEDTIME 11/27/20 02/14/24 clozapine 25 mg tablet 50 mg PO BID 08/13/21 02/14/24 zinc oxide 12.8 % topical ointment 1 appl topical DAILY 01/28/23 02/14/24 (Triple Paste) fluoxetine 20 mg capsule 40 mg PO QAM 06/08/23 02/14/24 lorazepam 0.5 mg tablet 0.5 mg PO DAILY 06/08/23 02/14/24 Previous Rx's ?Medication ?Instructions ?Recorded pull ups small #100 ea 06/05/20 right AFO #1 ea 11/24/21 compressor, for nebulizer #1 ea 11/27/22 blood pressure monitor (Blood #1 ea 12/16/22 Pressure Kit) ferrous sulfate 220 mg (44 mg 220 mg (5 mL) PO DAILY #473 mL 01/04/24 iron)/5 mL oral elixir levetiracetam 100 mg/mL oral 500 mg (5 mL) PO BID #473 mL 01/04/24 solution (Keppra) levothyroxine 25 mcg tablet 25 mcg PO DAILY@0600 #30 tabs 01/04/24 linaclotide 290 mcg capsule 290 mcg PO DAILY #30 caps 01/04/24 (Linzess) omeprazole 20 mg capsule,delayed 20 mg PO BID #60 caps 01/04/24 release ondansetron HCl 8 mg tablet 8 mg PO BID PRN nausea and 01/04/24 vomiting #20 tabs polyethylene glycol 3350 17 17 g PO DAILY PRN Constipation 01/04/24 gram/dose oral powder #238 grams sennosides 8.6 mg tablet (senna) 17.2 mg (2 x 8.6 mg) PO DAILY #60 01/04/24 tabs finasteride 5 mg tablet (Proscar) 5 mg PO DAILY bph 90 days #90 tabs 02/14/24 desmopressin 0.1 mg tablet 0.1 mg PO BID #60 tabs 03/15/24 doxazosin 4 mg tablet 4 mg PO DAILY #30 tabs 03/21/24 ascorbic acid (vitamin C) 500 mg/5 500 mg (5 mL) PO DAILY #120 mL 03/31/24 mL oral liquid (Liquid C) Allergies Allergy/AdvReac Type Severity Reaction Status Date / Time clindamycin Allergy Unknown Unknown Verified 04/09/24 17:21 Sulfa (Sulfonamide Allergy Unknown UNKNOWN Verified 04/09/24 17:21 Antibiotics) [SULFA(SULFONAMIDE ANTIBIOTICS)] sulfamethoxazole Allergy Unknown Unknown Verified 04/09/24 17:21 [From Bactrim] trimethoprim [From Bactrim] Allergy Unknown Unknown Verified 04/09/24 17:21 Review of Systems 2 Constitutional: Constitutional: Denies body ache(s), Denies fever(s) and Denies headache(s) ENT: Denies headache(s) Cardiovascular: Cardiovascular: Denies chest pain and Reports dyspnea Respiratory: Respiratory: Reports cough and Reports dyspnea Gastrointestinal: Gastrointestinal: Denies abdominal pain, Denies nausea and Denies vomiting Genitourinary: Comments: decreased urination Musculoskeletal: Musculoskeletal: Denies back pain Integumentary/Breasts: Skin/Breast: Denies rash Neurologic: Denies headache(s) [facility] Past Medical History Medical History Dysphagia Rash Balanitis UTI (urinary tract infection) Acute UTI Aspiration into airway Closed fracture of left proximal humerus Bladder wall thickening Acute bronchitis COVID-19 virus infection Aspiration pneumonia Esophageal diverticulum 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 Paraparesis Metabolic encephalopathy COVID-19 Adult failure to thrive MVP (mitral valve prolapse) Mentally challenged Anxiety GERD (gastroesophageal reflux disease) Impaired glucose tolerance Tracheomalacia Schizophrenia Tubular adenoma of colon COPD (chronic obstructive pulmonary disease) Pneumonia Anemia Hypothyroid Depression Asthma Oropharyngeal dysphagia Surgical History History of bronchoscopy History of colonoscopy S/P tracheoplasty History of esophagogastroduodenoscopy (EGD) Family History Family History Family/Other Unknown family medical history Father Hypertension Mother Unknown family medical history Brother No problems noted. Sister No problems noted. Social History Social History Household Members: Unknown / Unable to assess Household Members Other:: Resides in [facility] Housing: Other Housing Other:: long-term Are you a primary care support representative to a significant other at home: No Unable to assess alcohol history related to: Unable to respond and Unknown Alcohol intake: former Comment: 1:1 sitter Patient Tobacco Use Status: Never used Tobacco Tobacco use type: Cigarette e-Cigarette/Vaping Use: Never Used Second Hand Smoke Exposure: No Advance Directives: Yes Advance Directives on File: Yes Advance Directives Date on File: 11/28/20 service: No Current occupational status: disabled Cognitive needs: Yes Hearing needs: No Vision needs: No Physical Exam ED Vital Signs: Vital Signs - 24 hr 04/09/24 17:00 04/09/24 20:59 Temperature 99.6 F 98.2 F Pulse Rate 88 85 Respiratory Rate 16 16 Blood Pressure 114/65 129/69 Pulse Oximetry 93 94 Oxygen Delivery Method Nasal Cannula Room Air BMI result Body Mass Index 22.9 Const General: healthy appearing, comfortable, no acute distress, alert and awake Nutritional Appearance: thin Orientation/consciousness: patient oriented x3 HENMT Head: Yes normocephalic and Yes atraumatic Eyes Eyelids: Yes eyelids normal Conjunctivae: conjunctivae normal Sclerae: sclerae normal Corneas: corneas normal Pupils: Equal, round and reactive pupils present EOM: EOMs intact bilaterally Neck Neck: Yes full ROM Resp Other: Diminished breath sounds throughout, no wheezing Effort & Inspection: normal respiratory effort, able to speak in complete sentences and not labored Skin General skin exam: elasticity normal Neuro General: patient oriented x3 Cranial nerves: Yes Equal, round and reactive pupils present and Yes Bilaterally intact EOM present Cognition (Neuro): normal cognition Extrem Other: Moving all extremities well without any obvious deformities Medications Administered Discontinued Medications Generic Name Dose Route Start Last Admin Trade Name Sari PRN Reason Stop Dose Admin Ceftriaxone Sodium 1 gm 04/09/24 18:46 04/09/24 20:30 Ceftriaxone Sodium 1 Gm Vial IVPUSH 04/09/24 18:47 1 gm ONCE ONE Administration Azithromycin 500 mg/ Sodium 250 mls @ 125 mls/hr 04/09/24 18:46 04/09/24 20:30 Chloride IV 04/09/24 20:45 125 mls/hr ONCE ONE Administration Sodium Chloride 1,000 mls @ 999 mls/hr 04/09/24 19:00 04/09/24 20:24 Ns IV 04/09/24 20:00 999 mls/hr .Q1H1M LEN Administration Oseltamivir Phosphate 75 mg 04/09/24 18:46 04/09/24 20:30 Oseltamivir Phosphate 75 Mg Capsule PO 04/09/24 18:47 75 mg ONCE ONE Administration Medical Decision Making Medical Decision Making MDM Narrative: 68-year-old male presents for evaluation for reported hypoxia. He was initially 92% on 3 L. I discontinued his oxygen and per nursing he did desat to 87%. He was placed back on 3 L. his chest x-ray shows concern for aspiration pneumonia. The patient does have remnants of Gatorade on his shirt per halfway staff. The patient has a long history of aspiration pneumonia, he was also influenza A positive. Given that he was high risk we will treat with ceftriaxone and azithromycin for community-acquired pneumonia. The patient is found to have LUIS ANGEL with a creatinine of 3.16 which is increased from his baseline of around 1 I ordered IV fluids. Differential Diagnosis Differential Diagnoses: The differential diagnosis associated with the presentation includes Community-acquired pneumonia Bronchitis Influenza A LUIS ANGEL Dehydration Admission/Observation Consideration of admission/observation: Escalation of care including admission/observation considered Patient will be admitted to the medical service for influenza, LUIS ANGEL and concern for aspiration pneumonia Consult Healthcare Provider Management of the patient was discussed with: Hospitalist Lab Data MDM Lab Attestation statement: I reviewed the patient's lab results. No significant leukocytosis. The patient has a chronic normocytic anemia. His hemoglobin 12.7 is about 1 point above his baseline possibly concerning for hemoconcentration and dehydration. He does have a significant left shift which could be related to infection with either pneumonia or influenza. Chemistries significant for an LUIS ANGEL with an elevated BUN and creatinine likely due to prerenal/dehydration. His lactate is elevated 2.3 which could be related to dehydration versus infection. He does not meet sepsis greater 04/09/24 18:10 04/09/24 18:10 Labs: Lab Results 04/09/24 04/09/24 Range/Units 18:10 19:39 WBC 10.4 (4.8-10.8) X10*3/uL RBC 4.19 L (4.60-5.80) X10*6/uL Hgb 12.7 L (14.0-18.0) g/dl Hct 38.2 L (42.0-52.0) % MCV 91.2 (80.0-98.0) fL MCH 30.3 (27.0-33.0) pg MCHC 33.2 (31.0-36.0) g/dl RDW 13.8 (11.0-16.0) % Plt Count 175 D (160-400) X10*3/uL MPV 10.9 (9.4-12.4) fL Immature Gran % (Auto) 0.5 H (0.0-0.4) % Neut % (Auto) 88.8 H (45-73) % Lymph % (Auto) 5.0 L (20-40) % [place] % (Auto) 5.5 (2-11) % Eos % (Auto) 0.0 (0-4) % Baso % (Auto) 0.2 (0-2) % Lymph # (Auto) 0.5 L (1.2-4.9) X10*3/uL [place] # (Auto) 0.6 (0.1-1.2) X10*3/uL Eos # (Auto) 0.0 (0.0-0.4) X10*3/uL Baso # (Auto) 0.0 (0.0-0.2) X10*3/uL Abs Immat Gran (auto) 0.05 H (0.00-0.03) X10*3/uL Absolute Neuts (auto) 9.3 H (2.0-8.3) x10*3/uL Absolute Nucleated RBC 0.000 (0.0-0.012) X10*3/uL Nucleated RBC % (auto) 0.0 (0.0-0.2) /100WBC PT 12.6 H (10.9-12.4) SEC INR 1.1 (0.9-1.1) Sodium 139 (135-145) mmol/L Potassium 4.5 (3.3-5.1) mmol/L Chloride 104 (96-108) mmol/L Carbon Dioxide 22 (22-29) mmol/L Anion Gap 18 (12-20) BUN 52 H (9-16) mg/dL Creatinine 3.16 H (0.5-1.4) mg/dL Estim Creat Clear Calc 18.4 Estimated GFR 20 Random Glucose 111 (60-115) mg/dL Lactic Acid 2.3 H* (0.5-2.0) mmol/L Calcium 8.5 D (8.4-10.2) mg/dL Magnesium 2.1 (1.6-2.6) mg/dL Total Bilirubin 0.3 (0.0-1.0) mg/dL AST 111 H (5-37) U/L ALT 24 (0-40) U/L Alkaline Phosphatase 73 (39-117) U/L B-Natriuretic Peptide 10 (<100) pg/mL Total Protein 6.9 (6.5-8.0) g/dL Albumin 3.6 (3.5-5.0) g/dL Lipase 10 (8-78) U/L Urine Color Yellow Urine Appearance Turbid Urine pH 5.5 (5.0-9.0) Ur Specific [place] 1.015 (1.005-1.025) Urine Protein 100 (2+) H (Neg-Trace) mg/dL Urine Glucose (UA) Negative (Negative) mg/dL Urine Ketones Negative (Negative) mg/dL Urine Blood Large (3+) H (Negative) Urine Nitrite Negative (Negative) Ur Leukocyte Esterase Negative (Negative) Urine RBC 3-5 H (0-2) /HPF Urine WBC 0-5 (0-5) /HPF Ur Squamous Epith Cells 6-10 (0-2) /HPF Urine Bacteria None Seen (None Seen) Hyaline Casts 11-20 (0-2) /LPF Granular Casts Present Influenza Type A (PCR) POSITIVE A (Negative) Influenza Type B (PCR) NEGATIVE (Negative) RSV RNA Qual (PCR) NEGATIVE (Negative) SARS-CoV-2 RNA (RT-PCR) NEGATIVE (Negative) Independent Interpretation I performed an independent interpretation of an: Plain X-Ray (Agree with Radiology interpretation) Radiology Impression Discussion of test interpretation with radiology: I have reviewed the radiologist's reading. Radiologist Impression: Findings: Low lung volumes. Platelike atelectasis in the mid right lung. No effusion or pneumothorax. There is increased opacity in the medial right lung, possibly in the right lower lobe Heart size is normal. No acute fracture. IMPRESSION: 1. Medial right lower lobe opacity which could be infection, aspiration or atelectasis. This document has been electronically signed by: Chepe Alvarado MD on 04/09/2024 18:30:14 Discharge Plan Discharge Clinical Impression: Influenza A, Community acquired pneumonia, LUIS ANGEL (acute kidney injury) Patient Disposition: Admitted As Inpatient Prescriptions: No Action (DME) right AFO See Rx Instructions .Route .MEDSUPPLY Qty: 1 0RF Rx Instructions: As directed desmopressin 0.1 mg tablet 0.1 mg PO BID Qty: 60 0RF doxazosin 4 mg tablet 4 mg PO DAILY Qty: 30 0RF Liquid C 500 mg/5 mL liquid 500 mg PO DAILY Qty: 120 0RF Triple Paste 12.8 % ointment 1 appl topical DAILY Protocol: Apply to: Apply to: use with dressing chnage (DME) pull ups small See Rx Instructions .Route .MEDSUPPLY Qty: 100 11RF Rx Instructions: As directed clozapine 100 mg tablet 200 mg PO BEDTIME clozapine 25 mg tablet 50 mg PO BID (DME) blood pressure monitor [Blood Pressure Kit] Kit See Rx Instructions .ROUTE .MEDSUPPLY Qty: 1 0RF Rx Instructions: As directed pediatric cuff (DME) compressor, for nebulizer Device See Rx Instructions .Route Qty: 1 0RF Rx Instructions: As directed lorazepam 0.5 mg tablet 0.5 mg PO DAILY fluoxetine 20 mg capsule 40 mg PO QAM finasteride [Proscar] 5 mg tablet 5 mg PO DAILY 90 Days Qty: 90 3RF ferrous sulfate 220 mg (44 mg iron)/5 mL elixir 220 mg PO DAILY Qty: 473 2RF levetiracetam [Keppra] 100 mg/mL solution 500 mg PO BID Qty: 473 3RF levothyroxine 25 mcg tablet 25 mcg PO DAILY@0600 Qty: 30 3RF Rx Instructions: Crush the pill omeprazole 20 mg capsule,delayed release(DR/EC) 20 mg PO BID Qty: 60 6RF Linzess 290 mcg capsule 290 mcg PO DAILY Qty: 30 6RF ondansetron HCl 8 mg tablet 8 mg PO BID PRN (Reason: nausea and vomiting) Qty: 20 0RF polyethylene glycol 3350 17 gram/dose powder 17 g PO DAILY PRN (Reason: Constipation) Qty: 238 6RF sennosides [senna] 8.6 mg tablet 17.2 mg PO DAILY Qty: 60 6RF Print Language: Samoan
[2024-04-09 20:59] VITALS: BP 129/69; PULSE 85; RESP 16; TEMP 36.8; O2SAT 94
[2024-04-09 21:46] LABS: Reflex Lactate? Lactic Acid Added
--- NOTE | 2024-04-09 21:50 | P.HPHOSP_ITS ---
History of Present Illness Date of Service: 04/09/24 Chief Complaint: Hypoxia This is a 68-year-old male with pertinent history of schizophrenia with limited competency, mood disorder, tracheomalacia with dysphagia, COPD not on home oxygen, hypothyroidism, gastroesophageal reflux disease who was sent to the emergency department for evaluation of hypoxia. Patient has limited competency and does not know why he is in the hospital. He is a poor historian and has no complaints at the time of my evaluation. History obtained with the help of ER provider and chart review. Patient was diagnosed with flu yesterday. He was found to be satting 87% on room air and sent to the ER. Staff also noted decreased amount of urine and concerned that the patient was dehydrated. In the emergency department, imaging with right-sided pneumonia and patient requiring 2-3 L supplemental oxygen. Tested positive for influenza A. Review of Systems 2 Review of Systems: Yes Unobtainable due to mental condition and Unobtainable due to mental status PMFSH Medical History Dysphagia Rash Balanitis UTI (urinary tract infection) Acute UTI Aspiration into airway Closed fracture of left proximal humerus Bladder wall thickening Acute bronchitis COVID-19 virus infection Aspiration pneumonia Esophageal diverticulum 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 Paraparesis Metabolic encephalopathy COVID-19 Adult failure to thrive MVP (mitral valve prolapse) Mentally challenged Anxiety GERD (gastroesophageal reflux disease) Impaired glucose tolerance Tracheomalacia Schizophrenia Tubular adenoma of colon COPD (chronic obstructive pulmonary disease) Pneumonia Anemia Hypothyroid Depression Asthma Oropharyngeal dysphagia Family History Family/Other Unknown family medical history Father Hypertension Mother Unknown family medical history Brother No problems noted. Sister No problems noted. Surgical History History of bronchoscopy History of colonoscopy S/P tracheoplasty History of esophagogastroduodenoscopy (EGD) Social History Household Members: Unknown / Unable to assess Household Members Other:: Resides in Long Term Housing: Other Housing Other:: [facility] Are you a primary respite care provider to a significant other at home: No Unable to assess alcohol history related to: Unable to respond and Unknown Alcohol intake: former Comment: 1:1 sitter Patient Tobacco Use Status: Never used Tobacco Tobacco use type: Cigarette e-Cigarette/Vaping Use: Never Used Second Hand Smoke Exposure: No Advance Directives: Yes Advance Directives on File: Yes Advance Directives Date on File: 11/28/20 service: No Current occupational status: disabled Cognitive needs: Yes Hearing needs: No Vision needs: No Meds Allergies Allergy/AdvReac Type Severity Reaction Status Date / Time clindamycin Allergy Unknown Unknown Verified 04/09/24 17:21 Sulfa (Sulfonamide Allergy Unknown UNKNOWN Verified 04/09/24 17:21 Antibiotics) [SULFA(SULFONAMIDE ANTIBIOTICS)] sulfamethoxazole Allergy Unknown Unknown Verified 04/09/24 17:21 [From Bactrim] trimethoprim [From Bactrim] Allergy Unknown Unknown Verified 04/09/24 17:21 Active Medications: Current Medications Acetaminophen (Acetaminophen 325 Mg Tablet) 650 mg PO Q6H PRN PRN Reason: Pain, Mild 1-3,fever,headache Melatonin (Melatonin 3 Mg Tablet) 6 mg PO BEDTIME PRN PRN Reason: Insomnia Sodium Chloride (0.9 % Sodium Chloride Flush 3 Ml Syringe) [address] [facility] Home Medications ?Medication ?Instructions ?Recorded ?Confirmed ?Last Taken ?Type clozapine 100 mg tablet 200 mg PO BEDTIME 11/27/20 02/14/24 01/27/23 History clozapine 25 mg tablet 50 mg PO BID 08/13/21 02/14/24 01/28/23 History zinc oxide 12.8 % topical ointment 1 appl topical DAILY 01/28/23 02/14/24 Unknown History (Triple Paste) fluoxetine 20 mg capsule 40 mg PO QAM 06/08/23 02/14/24 Unknown History lorazepam 0.5 mg tablet 0.5 mg PO DAILY 06/08/23 02/14/24 Unknown History Physical Exam 2 Vital Signs and Narrative: Vital Signs: Last Vital Signs Temp 98.2 F 04/09/24 20:59 Pulse 85 04/09/24 20:59 Resp 16 04/09/24 20:59 BP 129/69 04/09/24 20:59 Pulse Ox 94 04/09/24 20:59 O2 Del Method Room Air 04/09/24 20:59 Oxygen Flow Rate 3 04/09/24 17:00 BMI result Body Mass Index 22.9 Middle-aged male lying in bed in no distress on supplemental oxygen Neck supple, no JVD Regular rate and rhythm, S1-S2 heard Right-sided crackles present with wheezing Abdomen soft nontender, no guarding, no rigidity Patient awakens to verbal stimulus but is disoriented to time and place ; no focal motor deficit Psych: Flat affect No pedal edema Results Labs 04/09/24 18:10 04/09/24 18:10 Labs: Laboratory Results - last 24 hr 04/09/24 04/09/24 18:10 19:39 MCV 91.2 MCH 30.3 MCHC 33.2 RDW 13.8 Plt Count 175 D MPV 10.9 Immature Gran % (Auto) 0.5 H Neut % (Auto) 88.8 H Lymph % (Auto) 5.0 L [place] % (Auto) 5.5 Eos % (Auto) 0.0 Baso % (Auto) 0.2 Lymph # (Auto) 0.5 L [place] # (Auto) 0.6 Eos # (Auto) 0.0 Baso # (Auto) 0.0 Abs Immat Gran (auto) 0.05 H Absolute Neuts (auto) 9.3 H Absolute Nucleated RBC 0.000 Nucleated RBC % (auto) 0.0 PT 12.6 H INR 1.1 Anion Gap 18 Estim Creat Clear Calc 18.4 Estimated GFR 20 Random Glucose 111 Lactic Acid 2.3 H* Calcium 8.5 D Magnesium 2.1 Total Bilirubin 0.3 AST 111 H ALT 24 Alkaline Phosphatase 73 B-Natriuretic Peptide 10 Total Protein 6.9 Albumin 3.6 Lipase 10 Urine Color Yellow Urine Appearance Turbid Urine pH 5.5 Ur Specific [place] 1.015 Urine Protein 100 (2+) H Urine Glucose (UA) Negative Urine Ketones Negative Urine Blood Large (3+) H Urine Nitrite Negative Ur Leukocyte Esterase Negative Urine RBC 3-5 H Urine WBC 0-5 Ur Squamous Epith Cells 6-10 Urine Bacteria None Seen Hyaline Casts 11-20 Granular Casts Present Influenza Type A (PCR) POSITIVE A Influenza Type B (PCR) NEGATIVE RSV RNA Qual (PCR) NEGATIVE SARS-CoV-2 RNA (RT-PCR) NEGATIVE Assessment and Plan (1) Aspiration pneumonia: Status: Acute (2) Acute hypoxemic respiratory failure: Status: Acute (3) Influenza A: Status: Acute (4) LUIS ANGEL (acute kidney injury): Status: Acute Plan This is a 68-year-old male with pertinent history of schizophrenia with limited competency, mood disorder, tracheomalacia with dysphagia, COPD not on home oxygen, hypothyroidism, gastroesophageal reflux disease who was sent to the emergency department for evaluation of hypoxia. #. Acute hypoxemic respiratory failure due to aspiration pneumonia leading to COPD exacerbation in a patient with influenza a: Will admit patient with supplemental oxygen. Initiating IV Unasyn for aspiration pneumonia. Systemic steroids, scheduled and p.r.n. DuoNebs. NPO until speech evaluation. Continue Tamiflu if patient able to take p.o. #. Acute kidney injury, prerenal: Monitor with crystalloid resuscitation. Avoid nephrotoxins #. Acute lactic acidosis due to hypoxia. No sepsis #. Hypothyroidism: On Synthroid #. Mood disorder: Continue home mood stabilizers #. Gastroesophageal reflux disease: On PPI Med rec pending DVT prophylaxis: Lovenox DNR/DNI. Discussed code status with sister and updated patient's clinical condition Admit as inpatient and will require two night minimum hospital stay for supplemental oxygen, IV steroids, IV antibiotics (as above), which is not possible in a lesser acute setting. Quality Stroke Does the patient have a stroke diagnosis?: No VTE Prior VTE?: No VTE Risk Level:: Medical - moderate - high VTE Device Contraindication: Treatment Not Indicated VTE Drug Contraindication: N/A - Med Ordered
[2024-04-09 22:45] LABS: ~Lactic Acid-LAB USE ONLY 1.5 mmol/L (0.5-2.0)
--- NOTE | 2024-04-09 22:59 | PC.NURSE ---
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 Redirected back to bed (EMC 3). Moved to ED Bed 13. Camera brought to room. New IV access established to right AC (20g). Report given to Yancy Patricio RN. Hygiene care provided, [facility] gown applied. Plan to obtain hospital bed alarm for further security. Patient is non-combative and pleasant, but confused. Per [facility] & family, this is his baseline mentation. Awaiting hospital bed assignment.
[2024-04-09 23:05] VITALS: O2SAT 91
[2024-04-09] MEDS: methylPREDNISolone Sod Succ 40 MG/ML VIAL IVPUSH (23:09)
[2024-04-09] MEDS: Enoxaparin Sodium 30 MG/0.3 ML SYRINGE SUBCUT (23:09)
[2024-04-09] MEDS: Ampicillin Sodium/Sulbactam Na 3 GM in 0.9 % Sodium Chloride 100 ML IV (23:09)
[2024-04-09] MEDS: Lactated Ringers 1,000 ML 100 ML IVCONT (23:15)
--- NOTE | 2024-04-09 23:23 | PC.NURSE ---
pt brought from [facility] at this time, this rn assumed care of pt. pt noted to be flight risk, pt placed in hospital bed with alarm on d/t no camera room space. second iv access obtained, 22G right hand, pt medicated per apr. pt remains resting in bed, respirations even and unlabored, on 3L nc, 92%.
--- NOTE | 2024-04-09 23:35 | PC.NURSE ---
pt noted to be shivering, oral temp taken, 100.0. provider aware, orders as follows.
[2024-04-09 23:36] VITALS: PULSE 85; RESP 20; TEMP 37.8; O2SAT 94
[2024-04-09] MEDS: Acetaminophen 1,000 MG/100 ML PIGGYBACK 400 MG IV (23:43)
[2024-04-10] VITALS (11 sets, daily range): BP systolic 100–128; BP diastolic 55–65; PULSE 77–89; RESP 12–20; TEMP 36.3–37.2; O2SAT 91–100
--- NOTE | 2024-04-10 00:37 | PC.NURSE ---
Darrell Zambrano- - reports [facility] will provide transport pt home on discharge.
[2024-04-10 05:47] LABS: Basophils Percent Auto 0.3 % (0-2); Hematocrit 39.3 % (42.0-52.0); Hemoglobin 12.8 g/dl (14.0-18.0); Imm Gran Abs Auto 0.03 X10*3/uL (0.00-0.03); Imm Gran Pct Auto 0.3 % (0.0-0.4); Lymphocytes Absolute Auto 0.3 X10*3/uL (1.2-4.9); MANUAL DIFF FLAG SCAN; Mean Corpuscular HGB Conc 32.6 g/dl (31.0-36.0); Mean Corpuscular Volume 95.2 fL (80.0-98.0); Mean Platelet Volume 11.6 fL (9.4-12.4); Monocytes Absolute Auto 0.3 X10*3/uL (0.1-1.2); Monocytes Percent Auto 3.1 % (2-11); Neutrophils Absolute Auto 9.5 x10*3/uL (2.0-8.3); Neutrophils Percent Auto 93.3 % (45-73); Platelet Count 153 X10*3/uL (160-400); Red Blood Count 4.13 X10*6/uL (4.60-5.80); Red Cell Distribution Width 14.2 % (11.0-16.0); SCAN SMEAR FLAG 1; White Blood Count 10.2 X10*3/uL (4.8-10.8)
[2024-04-10 06:03] LABS: Anion Gap 18 (12-20); Blood Urea Nitrogen 38 mg/dL (9-16); Calcium 8.5 mg/dL (8.4-10.2); Carbon Dioxide 19 mmol/L (22-29); Chloride 109 mmol/L (96-108); Creatinine Clr Calc Pharmacy 32.2; Estimated Glomerular Filt Rate 37; Glucose Random 119 mg/dL (60-115); Potassium 4.1 mmol/L (3.3-5.1); Sodium 142 mmol/L (135-145)
[2024-04-10 06:06] LABS: SLIDE REVIEW VERIFIED
--- NOTE | 2024-04-10 06:06 | PC.NURSE ---
pt noted to have red, but non open area to the right butt cheek. pt assisted with incontinence care, pt unable to leave [place] cath in place at this time.
[2024-04-10] MEDS: Albuterol/Iprat 2.5/0.5MG 3 ML AMPUL.NEB INHALE ×4 (07:27→19:48)
--- NOTE | 2024-04-10 08:16 | PC.NURSE ---
pt is alert but confused at baseline, pt was able to state that he is [facility] but does not know the year, skin pwd, respirations even and unlabored, pt denies pain, pt is incontinent of urine, pt cleaned up and this rn noticed redness the the right upper buttock/cheek area no open area at this time, blanchable
--- NOTE | 2024-04-10 08:55 | MHC.CM.PN ---
Addendum entered by Joanne Knapp 04/10/24 11:17: CM RECEIVED A RETURN CALL FROM [facility] DELIVERED, SHE DECLINED TO RECEIVE A COPY COPY PLACED AT BEDSIDE Original Note: SHIRA SPOKE TO PTS DIRECTOR, DUY [phone] SHE REPORTS THIS WAS RECENTLY OPENED AND IS CALLED AN [facility] SHE STATES THERE ARE [employer] LABORATORY MANAGER'S AND SEX OFFENDER TREATMENT PROFESSIONAL'S ON STAFF AT ALL TIMES PT DOES NOT REQUIRE ANY DME HCP ON FILE PCP: JET FERNANDES CM CALLED PTS HCP/SISTER, [facility] [phone] A VM MESSAGE WAS LEFT REQUESTING A RETURN CALL TO DELIVER PTS IMM COPY OF IMM TO BE MAILED DUY WILL FAX PAPERWORK, HOWEVER IT ONLY NEEDS TO BE COMPLETED BY MD IF THERE ARE MED CHANGES IF PT DC'S WITH NO MED CHANGES, THEY WILL ONLY NEED THE DCS ASSISTED STAFF WILL TRANSPORT PT AT DC
[2024-04-10] MEDS: Lactated Ringers 1,000 ML 100 ML IVCONT ×2 (09:29→18:57)
[2024-04-10] MEDS: Ampicillin Sodium/Sulbactam Na 3 GM in 0.9 % Sodium Chloride 100 ML IV ×2 (10:03→21:38)
[2024-04-10] MEDS: methylPREDNISolone Sod Succ 40 MG/ML VIAL IVPUSH ×2 (10:03→21:40)
--- NOTE | 2024-04-10 11:06 | HO.PM.IMPN ---
Subjective Subjective Date of Service: 04/10/24 Interval History: sob Physical Exam Vital Signs: Vital Signs: Last Vital Signs Temp 97.9 F 04/10/24 08:15 Pulse 79 04/10/24 08:15 Resp 20 04/10/24 08:15 BP 108/56 L 04/10/24 08:15 Pulse Ox 98 04/10/24 08:15 O2 Del Method Nasal Cannula 04/10/24 08:15 O2 Flow Rate 1 04/10/24 08:15 Oxygen Flow Rate 2 04/09/24 23:05 BMI result Body Mass Index 22.9 alert, oriented to person and place, ill appearing, frail, lungs dimisnished Objective Data Active Medications Acetaminophen (Acetaminophen 325 Mg Tablet) 650 mg PO Q6H PRN PRN Reason: Pain, Mild 1-3,fever,headache Albuterol/Ipratropium (Albuterol/Iprat 2.5/0.5mg 3 Ml Ampul.Neb) 3 ml INHALE RQ4H WHILE AWAKE [facility] Last Admin: 04/10/24 07:27 Dose: 3 ml Documented By: MAGNOLIA Albuterol/Ipratropium (Albuterol/Iprat 2.5/0.5mg 3 Ml Ampul.Neb) 3 ml INHALE Q4H PRN PRN Reason: Wheezing Calcium Carbonate (Calcium Carbonate 750 Mg Tab.Chew) 750 mg PO Q4H PRN PRN Reason: Heartburn Enoxaparin Sodium (Enoxaparin Sodium 30 Mg/0.3 Ml Syringe) 30 mg SUBCUT Q24H [facility] Last Admin: 04/09/24 23:09 Dose: 30 mg Documented By: KAILASH Ampicillin Sodium/Sulbactam (Sodium 3 gm/ Sodium Chloride) 100 mls @ 200 mls/hr IV Q12H [facility] Last Infusion: 04/10/24 10:38 Dose: Infused Documented By: VIOLA Lactated Ringer's (Lr) 1,000 mls @ 100 mls/hr IVCONT .Q10H [facility] Last Admin: 04/10/24 09:29 Dose: 100 mls/hr Documented By: VIOLA Magnesium Hydroxide (Milk Of Magnesia 30 Ml Oral.Susp) 30 ml PO DAILY PRN PRN Reason: Constipation Melatonin (Melatonin 3 Mg Tablet) 6 mg PO BEDTIME PRN PRN Reason: Insomnia Methylprednisolone Sodium Succinate (Methylprednisolone Sod Succ 40 Mg/Ml Vial) 40 mg IVPUSH Q12H [facility] Last Admin: 04/10/24 10:03 Dose: 40 mg Documented By: VIOLA Ondansetron HCl (Ondansetron Hcl 4 Mg/2 Ml Vial) 4 mg IVPUSH Q8H PRN PRN Reason: Nausea and Vomiting Sodium Chloride (0.9 % Sodium Chloride Flush 3 Ml Syringe) 3 ml IVFLUSH QSHIFT [facility] Last Admin: 04/10/24 07:18 Dose: Not Given Documented By: VIOLA Non-Admin Reason: IV Running Labs 04/10/24 05:34 04/10/24 05:34 Labs: Laboratory Results - last 24 hr 04/09/24 04/09/24 04/09/24 18:10 19:39 22:07 MCV 91.2 MCH 30.3 MCHC 33.2 RDW 13.8 Plt Count 175 D MPV 10.9 Immature Gran % (Auto) 0.5 H Neut % (Auto) 88.8 H Lymph % (Auto) 5.0 L [place] % (Auto) 5.5 Eos % (Auto) 0.0 Baso % (Auto) 0.2 Lymph # (Auto) 0.5 L [place] # (Auto) 0.6 Eos # (Auto) 0.0 Baso # (Auto) 0.0 Abs Immat Gran (auto) 0.05 H Absolute Neuts (auto) 9.3 H Absolute Nucleated RBC 0.000 Nucleated RBC % (auto) 0.0 Smear Tech's Comments PT 12.6 H INR 1.1 Anion Gap 18 Estim Creat Clear Calc 18.4 Estimated GFR 20 Random Glucose 111 Lactic Acid 2.3 H* Lactic Acid F/U @ 2Hr 1.5 Calcium 8.5 D Magnesium 2.1 Total Bilirubin 0.3 AST 111 H ALT 24 Alkaline Phosphatase 73 B-Natriuretic Peptide 10 Total Protein 6.9 Albumin 3.6 Lipase 10 Urine Color Yellow Urine Appearance Turbid Urine pH 5.5 Ur Specific [place] 1.015 Urine Protein 100 (2+) H Urine Glucose (UA) Negative Urine Ketones Negative Urine Blood Large (3+) H Urine Nitrite Negative Ur Leukocyte Esterase Negative Urine RBC 3-5 H Urine WBC 0-5 Ur Squamous Epith Cells 6-10 Urine Bacteria None Seen Hyaline Casts 11-20 Granular Casts Present Influenza Type A (PCR) POSITIVE A Influenza Type B (PCR) NEGATIVE RSV RNA Qual (PCR) NEGATIVE SARS-CoV-2 RNA (RT-PCR) NEGATIVE 04/10/24 05:34 MCV 95.2 MCH 31.0 MCHC 32.6 RDW 14.2 Plt Count 153 L MPV 11.6 Immature Gran % (Auto) 0.3 Neut % (Auto) 93.3 H Lymph % (Auto) 3.0 L [place] % (Auto) 3.1 Eos % (Auto) 0.0 Baso % (Auto) 0.3 Lymph # (Auto) 0.3 L [place] # (Auto) 0.3 Eos # (Auto) 0.0 Baso # (Auto) 0.0 Abs Immat Gran (auto) 0.03 Absolute Neuts (auto) 9.5 H Absolute Nucleated RBC 0.000 Nucleated RBC % (auto) 0.0 Smear Tech's Comments VERIFIED PT INR Anion Gap 18 Estim Creat Clear Calc 32.2 Estimated GFR 37 Random Glucose 119 H Lactic Acid Lactic Acid F/U @ 2Hr Calcium 8.5 Magnesium Total Bilirubin AST ALT Alkaline Phosphatase B-Natriuretic Peptide Total Protein Albumin Lipase Urine Color Urine Appearance Urine pH Ur Specific [place] Urine Protein Urine Glucose (UA) Urine Ketones Urine Blood Urine Nitrite Ur Leukocyte Esterase Urine RBC Urine WBC Ur Squamous Epith Cells Urine Bacteria Hyaline Casts Granular Casts Influenza Type A (PCR) Influenza Type B (PCR) RSV RNA Qual (PCR) SARS-CoV-2 RNA (RT-PCR) Assessment and Plan (1) Schizophrenia: Status: Acute Plan 68m PMH schizophrenia, mood disorder, tracheomalacia with dysphagia, COPD, hypothyroid, GERD presented with shortness of breath and hypoxia Acute hypoxic respiratory failure due to aspiration pneumonia and COPD with acute decompensation due to flu a Continue IV Unasyn, Tamiflu, steroids, DuoNebs, NPO follow up speech Acute kidney injury Improving on IV fluids, monitor Hypothyroid Continue levothyroxine DVT prophylaxis with Lovenox DNR/DNI reason for continued hospitalization: Hypoxia Quality Stroke Does the patient have a stroke diagnosis?: No VTE Prior VTE?: No VTE Risk Level:: Medical - moderate - high VTE Device Contraindication: Treatment Not Indicated VTE Drug Contraindication: N/A - Med Ordered
--- NOTE | 2024-04-10 11:39 | PHA.MEDREC ---
Pharmacy Consult ? Medication Reconciliation Pharmacy has completed the medication reconciliation. patient from facility, med list obtained and spoke with marcie shelton ( director). Med list updated ( increase in dose for lorazepam and omeprazole). Patient last received 300 mg dose of clozapine on 04/08 and 50 mg bid dose in AM on 04/09/24.
--- NOTE | 2024-04-10 15:03 | PC.NURSE ---
Speech Therapy at bedside for eval. Per Blossom (ST) recommendations for puree and honey thick diet. Blossom advised hospitalist Joaquina caring for Pt today.
[2024-04-10] MEDS: Omeprazole 40 MG CAPSULE.DR PO (16:58)
--- NOTE | 2024-04-10 16:58 | MHC.SL.SWA ---
Speech Pathologist Impression: Moderate to significant oropharyngeal dysphagia; lengthy history of dysphagia including FTT, esophageal diverticulum and GERD Risk of Aspiration Due to: History of Pneumonia Reduced Cognition Dysphasia Diet Status: Pt had MBSS in October 2022 with rec for NDD1 diet and HTL. Pt seen again in January 2023 with noted hx of noncompliance. D/t pt cognitive limitations, his understanding of results considered insufficient. Recc diet/dysphagia management strategies be communicated with nursing home staff upon d/c to encourage carryover. Liquid Consistency and Strategies for Safe Swallow: Liquid Intake Recommendation: Honey Thick Liquid Intake Strategies: Small Sips Solid Food Consistency: Dietary Recommendations: Pureed (NDD1) Additional Modifications to Solid Foods: 1:1 Feeding, liquids by TSP, slower rate of ingestion: assure patient has swallowed before presenting more food or liquid, blend gravies/sauces into puree for one consistency, SLOW PACING. Patient may benefit from smaller, more frequent meals. Oral Medication Intake: Crushed with Puree Please contact the pharmacy regarding appropriate crushable or liquid drug formulations that are available whenever modified delivery is recommended. Compensatory Strategies and Precautions to be Taken for Safe Swallow: Sitting Upright (90 deg) Small Bites and Sips Alternate Liquids/Solids Rate of Ingestion Change Supervision While Eating and Drinking for Safe Swallow: Total Supervision (1:1) Foods to Avoid: Mixed consistencies. Swallowing Recommended Treatments: Compens. Strategy Educat. Recommendation for Speech: Inpatient Speech Therapy Comment: Recommendations for pt diet at nursing home to be provided at time of d/c Frequency/Duration: Daily M-F Date Range for Service Req: Timeline to reassess: Deputy Probation Officer Clinican/Clinical Fellow: No Supervisory Statement: I have reviewed and agree with the student/clinical fellow's documentation: N/A Speech Language Pathologist: Blossom Sainz M.S., CCC-TITLE COORDINATOR
[2024-04-10] MEDS: Enoxaparin Sodium 40 MG/0.4 ML SYRINGE SUBCUT (21:39)
[2024-04-10] MEDS: levETIRAcetam Oral Soln 500 MG/5 ML PO (21:39)
[2024-04-10] MEDS: cloZAPine 25 MG TABLET 50 MG PO (21:39)
[2024-04-10] MEDS: LORazepam 1 MG TABLET PO (21:39)
[2024-04-10] MEDS: Sennosides 8.6 MG TABLET 17.2 MG PO (21:39)
[2024-04-10] MEDS: cloZAPine 100 MG TABLET 200 MG PO (21:40)
[2024-04-10] MEDS: 0.9 % Sodium Chloride Flush 3 ML SYRINGE IVFLUSH (21:40)
[2024-04-10] MEDS: Desmopressin Acetate 0.2 MG TABLET 0.1 MG PO (21:40)
[2024-04-11 01:54] VITALS: BMI 21.6
[2024-04-11 04:00] VITALS: BP 114/59; PULSE 83; RESP 18; TEMP 36.8; O2SAT 94
[2024-04-11 06:22] LABS: Hematocrit 36.4 % (42.0-52.0); Hemoglobin 12.2 g/dl (14.0-18.0); Mean Corpuscular HGB Conc 33.5 g/dl (31.0-36.0); Mean Corpuscular Hemoglobin 30.4 pg (27.0-33.0); Mean Corpuscular Volume 90.8 fL (80.0-98.0); Mean Platelet Volume 11.1 fL (9.4-12.4); Platelet Count 164 X10*3/uL (160-400); Red Blood Count 4.01 X10*6/uL (4.60-5.80); Red Cell Distribution Width 13.7 % (11.0-16.0); White Blood Count 8.7 X10*3/uL (4.8-10.8)
[2024-04-11] MEDS: Omeprazole 40 MG CAPSULE.DR PO (06:33)
[2024-04-11] MEDS: Levothyroxine Sodium 25 MCG TABLET PO (06:33)
[2024-04-11 06:41] LABS: Anion Gap 13 (12-20); Blood Urea Nitrogen 24 mg/dL (9-16); Calcium 9.1 mg/dL (8.4-10.2); Carbon Dioxide 27 mmol/L (22-29); Chloride 110 mmol/L (96-108); Creatinine Clr Calc Pharmacy 68.5; Estimated Glomerular Filt Rate > 60; Glucose Random 131 mg/dL (60-115); Potassium 3.7 mmol/L (3.3-5.1); Sodium 146 mmol/L (135-145)
[2024-04-11 07:21] VITALS: BP 123/61; PULSE 83; RESP 16; TEMP 36.7; O2SAT 93
--- NOTE | 2024-04-11 08:19 | HO.PM.IMPN ---
Subjective Subjective Date of Service: 04/11/24 Interval History: Feels better Physical Exam Vital Signs: Vital Signs: Last Vital Signs Temp 98.0 F 04/11/24 07:21 Pulse 83 04/11/24 07:21 Resp 16 04/11/24 07:21 BP 123/61 04/11/24 07:21 Pulse Ox 93 04/11/24 07:21 O2 Del Method Room Air 04/11/24 07:21 O2 Flow Rate 1 04/10/24 08:15 Oxygen Flow Rate 2 04/09/24 23:05 BMI result Body Mass Index 21.6 alert, oriented to person and place, less ill appearing, frail, lungs dimisnished Objective Data Active Medications Acetaminophen (Acetaminophen 325 Mg Tablet) 650 mg PO Q6H PRN PRN Reason: Pain, Mild 1-3,fever,headache Albuterol/Ipratropium (Albuterol/Iprat 2.5/0.5mg 3 Ml Ampul.Neb) 3 ml INHALE RQ4H WHILE AWAKE [facility] Last Admin: 04/10/24 19:48 Dose: 3 ml Documented By: EDDIE Albuterol/Ipratropium (Albuterol/Iprat 2.5/0.5mg 3 Ml Ampul.Neb) 3 ml INHALE Q4H PRN PRN Reason: Wheezing Calcium Carbonate (Calcium Carbonate 750 Mg Tab.Chew) 750 mg PO Q4H PRN PRN Reason: Heartburn Clozapine (Clozapine 25 Mg Tablet) 50 mg PO BID [facility] Last Admin: 04/10/24 21:39 Dose: 50 mg Documented By: ISADORA Clozapine (Clozapine 100 Mg Tablet) 200 mg PO BEDTIME [facility] Last Admin: 04/10/24 21:40 Dose: 200 mg Documented By: ISADORA Desmopressin Acetate (Desmopressin Acetate 0.2 Mg Tablet) 0.1 mg PO BID [facility] Last Admin: 04/10/24 21:40 Dose: 0.1 mg Documented By: ISADORA Doxazosin Mesylate (Doxazosin Mesylate 2 Mg Tablet) 4 mg PO DAILY [facility]; Protocol Enoxaparin Sodium (Enoxaparin Sodium 40 Mg/0.4 Ml Syringe) 40 mg SUBCUT Q24H [facility] Last Admin: 04/10/24 21:39 Dose: 40 mg Documented By: ISADORA Finasteride (Finasteride 5 Mg Tablet) 5 mg PO DAILY [facility] Fluoxetine HCl (Fluoxetine Hcl 20 Mg Capsule) 40 mg PO DAILY [facility] Ampicillin Sodium/Sulbactam (Sodium 3 gm/ Sodium Chloride) 100 mls @ 200 mls/hr IV Q12H [facility] Last Infusion: 04/10/24 22:27 Dose: Infused Documented By: ISADORA Lactated Ringer's (Lr) 1,000 mls @ 100 mls/hr IVCONT .Q10H [facility] Last Infusion: 04/11/24 00:36 Dose: 0 mls/hr Documented By: ISADORA Levetiracetam (Levetiracetam Oral Soln 500 Mg/5 Ml) 500 mg PO BID [facility] Last Admin: 04/10/24 21:39 Dose: 500 mg Documented By: ISADORA Levothyroxine Sodium (Levothyroxine Sodium 25 Mcg Tablet) 25 mcg PO DAILY@0600 [facility] Last Admin: 04/11/24 06:33 Dose: 25 mcg Documented By: ISADORA Lorazepam (Lorazepam 1 Mg Tablet) 1 mg PO BID [facility] Last Admin: 04/10/24 21:39 Dose: 1 mg Documented By: ISADORA Magnesium Hydroxide (Milk Of Magnesia 30 Ml Oral.Susp) 30 ml PO DAILY PRN PRN Reason: Constipation Melatonin (Melatonin 3 Mg Tablet) 6 mg PO BEDTIME PRN PRN Reason: Insomnia Methylprednisolone Sodium Succinate (Methylprednisolone Sod Succ 40 Mg/Ml Vial) 40 mg IVPUSH Q12H [facility] Last Admin: 04/10/24 21:40 Dose: 40 mg Documented By: ISADORA Non-Formulary Medication (Linaclotide [Linzess]) 290 mcg PO DAILY [facility] Omeprazole (Omeprazole 40 Mg Capsule.) 40 mg PO BID@0630,1630 [facility] Last Admin: 04/11/24 06:33 Dose: 40 mg Documented By: ISADORA Ondansetron HCl (Ondansetron Hcl 4 Mg/2 Ml Vial) 4 mg IVPUSH Q8H PRN PRN Reason: Nausea and Vomiting Senna (Sennosides 8.6 Mg Tablet) 17.2 mg PO BEDTIME [facility] Last Admin: 04/10/24 21:39 Dose: 17.2 mg Documented By: ISADORA Sodium Chloride (0.9 % Sodium Chloride Flush 3 Ml Syringe) 3 ml IVFLUSH QSHIFT [facility] Last Admin: 04/11/24 07:14 Dose: Not Given Documented By: MALLY Non-Admin Reason: No Access Labs 04/11/24 05:22 04/11/24 05:22 Labs: Laboratory Results - last 24 hr 04/11/24 05:22 MCV 90.8 MCH 30.4 MCHC 33.5 RDW 13.7 Plt Count 164 MPV 11.1 Absolute Nucleated RBC 0.000 Nucleated RBC % (auto) 0.0 Anion Gap 13 Estim Creat Clear Calc 68.5 Estimated GFR > 60 Random Glucose 131 H Calcium 9.1 D Microbiology Microbiology Results: Microbiology 04/09/24 19:39 Blood Culture - Preliminary Blood - Venous No growth after 24 hours. 04/09/24 19:39 Blood Culture - Preliminary Blood - Venous Prelim: GPC Gram Stain only Assessment and Plan (1) Schizophrenia: Status: Acute Plan 68m PMH schizophrenia, mood disorder, tracheomalacia with dysphagia, COPD, hypothyroid, GERD presented with shortness of breath and hypoxia Acute hypoxic respiratory failure due to aspiration pneumonia and COPD with acute decompensation due to flu a Continue IV Unasyn, steroids, DuoNebs, Speech appreciated, changed to pureed solids with honey thick liquids Now on room air Acute kidney injury Resolved Hypothyroid Continue levothyroxine DVT prophylaxis with Lovenox DNR/DNI reason for continued hospitalization: Dispo planning Quality Stroke Does the patient have a stroke diagnosis?: No VTE Prior VTE?: No VTE Risk Level:: Medical - moderate - high VTE Device Contraindication: Treatment Not Indicated VTE Drug Contraindication: N/A - Med Ordered
--- NOTE | 2024-04-11 08:20 | PM.DS ---
DS: Providers Provider Date of Service: 04/11/24 Date of admission: 04/09/24 21:48 Date of discharge: 04/11/24 Primary care physician: Yasmin Latham NP DS: Diagnosis Discharge Diagnosis (1) Schizophrenia: Status: Acute DS: Summary Hospital Course Hospital Course: From initial hpi: 68-year-old male with pertinent history of schizophrenia with limited competency, mood disorder, tracheomalacia with dysphagia, COPD not on home oxygen, hypothyroidism, gastroesophageal reflux disease who was sent to the emergency department for evaluation of hypoxia. Patient has limited competency and does not know why he is in the hospital. He is a poor historian and has no complaints at the time of my evaluation. History obtained with the help of ER provider and chart review. Patient was diagnosed with flu yesterday. He was found to be satting 87% on room air and sent to the ER. Staff also noted decreased amount of urine and concerned that the patient was dehydrated. In the emergency department, imaging with right-sided pneumonia and patient requiring 2-3 L supplemental oxygen. Tested positive for influenza A. Hospital course: Patient was admitted for acute hypoxic respiratory failure secondary to aspiration pneumonia and COPD with acute decompensation due to influenza A. Was treated with IV Unasyn, steroids, DuoNebs. Hypoxia resolved as now comfortable on room air. Was seen by speech recommended pureed solids and honey thick liquids. On discharge we will continue 5 more days of Ceftin, azithromycin, prednisone, Tamiflu. Also noted to have acute kidney injury on admission. Likely due to poor p.o. intake. Resolved with IV fluids. Continue to encourage p.o. intake. For hypothyroidism was continued on levothyroxine. Patient is feeling better will be discharged back to assisted. Time Attestation Discharge Coordination Time (in mins): 33 Quality: Safe Use of Opioids Does Pt have an Active Cancer Diagnosis on the Problem List?: No Quality: Stroke Does the patient have a stroke diagnosis?: No Physical Exam Vital Signs: Vital Signs: Last Vital Signs Temp 98.0 F 04/11/24 07:21 Pulse 83 04/11/24 07:21 Resp 16 04/11/24 07:21 BP 123/61 04/11/24 07:21 Pulse Ox 93 04/11/24 07:21 O2 Del Method Room Air 04/11/24 07:21 O2 Flow Rate 1 04/10/24 08:15 Oxygen Flow Rate 2 04/09/24 23:05 BMI result Body Mass Index 21.6 alert, oriented to person and place, less ill appearing, frail, lungs dimisnished DS: Data Data Completed and Pending Labs on day of discharge: Laboratory Results - last 24 hr 04/11/24 05:22 WBC 8.7 RBC 4.01 L Hgb 12.2 L Hct 36.4 L MCV 90.8 MCH 30.4 MCHC 33.5 RDW 13.7 Plt Count 164 MPV 11.1 Absolute Nucleated RBC 0.000 Nucleated RBC % (auto) 0.0 Sodium 146 H Potassium 3.7 Chloride 110 H Carbon Dioxide 27 Anion Gap 13 BUN 24 H Creatinine 0.82 Estim Creat Clear Calc 68.5 Estimated GFR > 60 Random Glucose 131 H Calcium 9.1 D Preliminary micro results at discharge 04/09/24 19:39 Blood Culture - Preliminary Blood - Venous No growth after 24 hours. 04/09/24 19:39 Blood Culture - Preliminary Blood - Venous Prelim: GPC Gram Stain only Discharge Plan Discharge Anticipated Discharge Date/Time: 04/11/24 08:16 Patient Disposition: Home, Self-Care Discharge Diagnosis: flu, pna, jaison Referrals: Yasmin Latham AQUACULTURAL WORKER SUPERVISOR [Primary Care Provider] - 1 Week Discharge Medications: New prednisone 20 mg tablet 40 mg PO DAILY Qty: 10 0RF cefuroxime axetil 500 mg tablet 500 mg PO BID Qty: 10 0RF azithromycin 500 mg tablet 500 mg PO DAILY 5 Days Qty: 5 0RF oseltamivir [Tamiflu] 6 mg/mL suspension for reconstitution 75 mg PO BID 5 Days Qty: 125 0RF Continued (DME) right AFO See Rx Instructions .Route .MEDSUPPLY Qty: 1 0RF Rx Instructions: As directed desmopressin 0.1 mg tablet 0.1 mg PO BID Qty: 60 0RF doxazosin 4 mg tablet 4 mg PO DAILY Qty: 30 0RF omeprazole 20 mg capsule,delayed release(DR/EC) 40 mg PO BID@0630,1630 lorazepam 1 mg Tablet 1 mg PO BID sennosides [senna] 8.6 mg tablet 17.2 mg PO BEDTIME (DME) pull ups small See Rx Instructions .Route .MEDSUPPLY Qty: 100 11RF Rx Instructions: As directed clozapine 100 mg tablet 200 mg PO BEDTIME clozapine 25 mg tablet 50 mg PO BID (DME) blood pressure monitor [Blood Pressure Kit] Kit See Rx Instructions .ROUTE .MEDSUPPLY Qty: 1 0RF Rx Instructions: As directed pediatric cuff (DME) compressor, for nebulizer Device See Rx Instructions .Route Qty: 1 0RF Rx Instructions: As directed fluoxetine 20 mg capsule 40 mg PO DAILY finasteride [Proscar] 5 mg tablet 5 mg PO DAILY 90 Days Qty: 90 3RF ferrous sulfate 220 mg (44 mg iron)/5 mL elixir 220 mg PO DAILY Qty: 473 2RF levetiracetam [Keppra] 100 mg/mL solution 500 mg PO BID Qty: 473 3RF levothyroxine 25 mcg tablet 25 mcg PO DAILY@0600 Qty: 30 3RF Rx Instructions: Crush the pill Linzess 290 mcg capsule 290 mcg PO DAILY Qty: 30 6RF Discharge Orders: Discharge Order (Routine); Ordered 04/11/24 Ordered By: Daniel Kunz Diet: pureed, honey thick Activity on Discharge: As tolerated Stand Alone Forms: Patient Portal Discharge page Print Language: Syrian Care Plan Goals: recovery Health Concerns: flu, pna, jaison, aspiration Plan of Treatment: Five more days of Ceftin and azithromycin. Complete Tamiflu course. Five more days of prednisone. Aspiration precautions with pureed solids and honey thick liquids. Assessment: see above
[2024-04-11] MEDS: FLUoxetine HCl 20 MG CAPSULE 40 MG PO (08:21)
[2024-04-11] MEDS: Desmopressin Acetate 0.2 MG TABLET 0.1 MG PO (08:21)
[2024-04-11] MEDS: Doxazosin Mesylate 2 MG TABLET 4 MG PO (08:22)
[2024-04-11] MEDS: levETIRAcetam Oral Soln 500 MG/5 ML PO (08:22)
[2024-04-11] MEDS: Finasteride 5 MG TABLET PO (08:22)
[2024-04-11] MEDS: cloZAPine 25 MG TABLET 50 MG PO (08:22)
[2024-04-11] MEDS: LORazepam 1 MG TABLET PO (08:22)
[2024-04-11] MEDS: Albuterol/Iprat 2.5/0.5MG 3 ML AMPUL.NEB INHALE (09:12)
[2024-04-11 09:14] VITALS: PULSE 81; RESP 15; O2SAT 95
[2024-04-11] MEDS: predniSONE 20 MG TABLET 40 MG PO (09:34)
[2024-04-11] MEDS: Amoxicillin/Potassium Clav 875 MG TABLET PO (09:34)
--- NOTE | 2024-04-11 11:23 | MHC.CM.PN ---
pt returning to longterm today staff to transport
== END 2024-04-11 12:25 | disposition home or self-care (01) | DRG 177 ==
LOC: HO.ED 21:47 → HO.EDOVER 21:59 → HO.S3 04-10 19:57
PROVIDERS: Physician Assistant; Admitting Provider Student in an Organized Health Care Education/Training Program; Emergency Provider Emergency Medicine Emergency Medical Services; PCP Nurse Practitioner Family; Visit Provider Internal Medicine
DX: J69.0 Pneumonitis due to inhalation of food and vomit (principal); J96.01 Acute respiratory failure with hypoxia; N17.9 Acute kidney failure, unspecified; E87.21 Acute metabolic acidosis; J44.1 Chronic obstructive pulmonary disease with (acute) exacerbation; E86.0 Dehydration; J10.1 Influenza due to other identified influenza virus with other respiratory manifestations; K21.9 Gastro-esophageal reflux disease without esophagitis; Z66 Do not resuscitate; F20.9 Schizophrenia, unspecified; E03.9 Hypothyroidism, unspecified; Z79.890 Hormone replacement therapy; Z79.899 Other long term (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
CPT/HCPCS: 0241U; 36415; 70450; 71045; 71250; 80048; 80053; 81001; 83605; 83690; 83735; 83880; 85025; 85027; 85610; 87040; 87147; 87205; 92610; 93005; 99285; J0131; J0295; J0456; J0696; J1200; J1650; J2543; J2919; J3371; J7120

== ENCOUNTER → 2024-04-09 17:24 | Outpatient (BNV) | payer MEDICARE, MEDICAID, SELFPAY | PROVIDERS: Admitting Provider Student in an Organized Health Care Education/Training Program; Emergency Provider Emergency Medicine Emergency Medical Services; PCP Nurse Practitioner Family; Visit Provider Internal Medicine | DX: R06.02 Shortness of breath (principal) | CPT/HCPCS: 93010 ==

== ENCOUNTER → 2024-04-09 17:24 | Outpatient (BNV) | payer MEDICARE, MEDICAID, SELFPAY | PROVIDERS: PCP Nurse Practitioner Family; Visit Provider Radiology Diagnostic Radiology | DX: R07.9 Chest pain, unspecified (principal) | CPT/HCPCS: 71045 ==

== ENCOUNTER → 2024-04-09 21:48 | Outpatient (BNV) | payer MEDICARE, MEDICAID, SELFPAY | PROVIDERS: Admitting Provider Student in an Organized Health Care Education/Training Program; Emergency Provider Emergency Medicine Emergency Medical Services; PCP Nurse Practitioner Family; Visit Provider Student in an Organized Health Care Education/Training Program | DX: J69.0 Pneumonitis due to inhalation of food and vomit (principal); J96.01 Acute respiratory failure with hypoxia; J10.1 Influenza due to other identified influenza virus with other respiratory manifestations; N17.9 Acute kidney failure, unspecified | CPT/HCPCS: 99223; 99232; 99239; 99499 ==

== ENCOUNTER 2024-04-13 17:41 | Inpatient (IN) | payer MEDICARE, MEDICAID, OTHER, SELFPAY ==
--- NOTE | ~2024-04-13 | CT_ITS ---
CLINICAL HISTORY: recent aspiration pna CT chest without contrast Comparison: Chest CT from 02/04/2023 Findings: Pulmonary opacities are nonspecific and may reflect pneumonitis and/or pneumonia in the lower lobes superimposed on chronic lung disease with mild increase in scarring and redemonstration of the mild emphysematous changes. Index airspace disease measures 4 cm in the superior segment of the right lower lobe right hilar region. No pneumothorax. No pleural effusion. Mild crowding of the redemonstrated. No new or enlarged mediastinal lymphadenopathy in this noncontrast study. Imaged esophagus is again patulous. Right rib fractures in the left scapula fracture are redemonstrated. Mild worsening of mild-moderate mid and upper thoracic vertebral height losses. These appear old/chronic by CT at this time. Sternum fracture deformity appears old/healed. IMPRESSION: 1. New airspace disease in the right hilar region concerning for pneumonitis/pneumonia. Recommend attention on follow-up to ensure resolution. 2 redemonstration of the bilateral scarring compared to 02/04/2023.. This document has been electronically signed by: Bijan Solo MD on 04/13/2024 20:35:56
--- NOTE | ~2024-04-13 | CT_ITS ---
CLINICAL HISTORY: altered mental status CT head without contrast Comparison: None Findings: No acute intracranial hemorrhage. Bilateral basal ganglia mineralization and vascular calcifications are noted. Mild-moderate volume loss is generalized. Thin bilateral subdural hygromas measure up to 5 mm thickness. Small left basal ganglia region lacunar infarction and mild white matter lesions. Mucosal thickening of the imaged paranasal sinuses. Small left mastoid effusion. Motion artifacts including imaged temporomandibular joints. No acute skull fracture, accounting for motion artifacts. IMPRESSION: No acute intracranial abnormality by CT. This document has been electronically signed by: Bijan Solo MD on 04/13/2024 20:37:43
[2024-04-13 18:59] VITALS: BP 121/77; BP 136/72; PULSE 60; PULSE 70; RESP 18; O2SAT 93; O2SAT 96; BMI 22.4
--- NOTE | 2024-04-13 19:06 | ECG_ITS ---
Test Reason : ALTERED MENTAL Blood Pressure : */* mmHG Vent. Rate : 68 BPM Atrial Rate : 68 BPM P-R Int : 146 ms QRS Dur : 82 ms QT Int : 398 ms P-R-T Axes : 61 17 34 degrees QTcB Int : 423 ms Normal sinus rhythm Normal ECG When compared with ECG of 09-Apr-2024 17:43, No significant change was found Referred By: Alonzo Green Electronically Signed By: FAUSTINO DIAZ
[2024-04-13 19:22] VITALS: BP 143/74; PULSE 72; RESP 16; TEMP 36.6; O2SAT 95
[2024-04-13 19:50] LABS: Basophils Percent Auto 0.2 % (0-2); Hematocrit 36.9 % (42.0-52.0); Hemoglobin 12.1 g/dl (14.0-18.0); Imm Gran Abs Auto 0.13 X10*3/uL (0.00-0.03); Imm Gran Pct Auto 2.8 % (0.0-0.4); Lymphocytes Percent Auto 21.4 % (20-40); MANUAL DIFF FLAG SCAN; Mean Corpuscular HGB Conc 32.8 g/dl (31.0-36.0); Mean Corpuscular Hemoglobin 30.5 pg (27.0-33.0); Mean Corpuscular Volume 92.9 fL (80.0-98.0); Mean Platelet Volume 10.7 fL (9.4-12.4); Monocytes Absolute Auto 0.3 X10*3/uL (0.1-1.2); Monocytes Percent Auto 6.3 % (2-11); Neutrophils Absolute Auto 3.2 x10*3/uL (2.0-8.3); Neutrophils Percent Auto 69.3 % (45-73); Platelet Count 156 X10*3/uL (160-400); Red Blood Count 3.97 X10*6/uL (4.60-5.80); Red Cell Distribution Width 13.6 % (11.0-16.0); SCAN SMEAR FLAG 1; White Blood Count 4.6 X10*3/uL (4.8-10.8)
--- NOTE | 2024-04-13 19:50 | MHC.EDTECH ---
This pct assumed care of Patient at 1900,Patient was change into hospital attire ,,blood drawn including both sets of blood culture ,lactic acid ,rsv /covid swab collected all sent to lab .ekg taken and was read by Provider ,vitals taken .Patient reel worker took Patient Belongings home .
[2024-04-13 20:05] LABS: Alanine Aminotransferase 27 U/L (0-40); Albumin Level 3.5 g/dL (3.5-5.0); Alkaline Phosphatase 58 U/L (39-117); Anion Gap 12 (12-20); Aspartate Amino Transferase 43 U/L (5-37); Bilirubin Total 0.4 mg/dL (0.0-1.0); Blood Urea Nitrogen 24 mg/dL (9-16); Calcium 9.1 mg/dL (8.4-10.2); Carbon Dioxide 27 mmol/L (22-29); Chloride 111 mmol/L (96-108); Creatinine Clr Calc Pharmacy 86.2; Estimated Glomerular Filt Rate > 60; Glucose Random 108 mg/dL (60-115); Lipase 24 U/L (8-78); Potassium 4.1 mmol/L (3.3-5.1); Sodium 146 mmol/L (135-145); Total Protein 6.4 g/dL (6.5-8.0)
[2024-04-13 20:09] LABS: B Type Natriuretic Peptide 54 pg/mL (<100)
[2024-04-13 20:13] LABS: SLIDE REVIEW VERIFIED
[2024-04-13 20:26] LABS: Influenza A PCR POSITIVE (Negative); Influenza B PCR NEGATIVE (Negative); Resp Syncy Virus RNA Qual PCR NEGATIVE (Negative); SARS COV2 PCR INHOUSE NEGATIVE (Negative)
--- NOTE | 2024-04-13 21:06 | ED_ITS ---
HPI - General Adult General Chief complaint: Altered Mental Status Stated complaint: confirmed dx pneumonia on zpac & steroids, weaknes Time Seen by Provider: 04/13/24 19:04 Source: patient, RN notes reviewed, old records reviewed and other (alf staff) Mode of arrival: EMS Limitations: other (poor historian) History of Present Illness ED Provider: Norma HPI narrative: 68-year-old male past medical history significant for schizophrenia, COPD, BPH, GERD, hypothyroidism presents for evaluation of lethargy. The patient was admitted to this facility on 04/09/2024 with concern for aspiration pneumonitis, COPD exacerbation in the setting of influenza a He was discharged 2 days ago with azithromycin and cefuroxime as well as prednisone and Tamiflu Per staff at the patient's alf, the patient has been more lethargic than usual and not talking as he normally does. His oxygen saturation was reportedly low at the alf, but is not low currently The patient offers no complaints and reports that he feels okay. ? He was reportedly been compliant with his medications since his discharge Related Data Home Medications ?Medication ?Instructions ?Recorded ?Confirmed clozapine 100 mg tablet 200 mg PO BEDTIME 11/27/20 04/10/24 clozapine 25 mg tablet 50 mg PO BID 08/13/21 04/10/24 fluoxetine 20 mg capsule 40 mg PO DAILY 06/08/23 04/10/24 lorazepam 1 mg tablet 1 mg PO BID 04/10/24 04/10/24 omeprazole 20 mg capsule,delayed 40 mg PO BID@0630,1630 04/10/24 04/10/24 release sennosides 8.6 mg tablet (senna) 17.2 mg PO BEDTIME 04/10/24 04/10/24 Previous Rx's ?Medication ?Instructions ?Recorded pull ups small #100 ea 06/05/20 right AFO #1 ea 11/24/21 compressor, for nebulizer #1 ea 11/27/22 blood pressure monitor (Blood #1 ea 12/16/22 Pressure Kit) ferrous sulfate 220 mg (44 mg 220 mg (5 mL) PO DAILY #473 mL 01/04/24 iron)/5 mL oral elixir levetiracetam 100 mg/mL oral 500 mg (5 mL) PO BID #473 mL 01/04/24 solution (Keppra) levothyroxine 25 mcg tablet 25 mcg PO DAILY@0600 #30 tabs 01/04/24 linaclotide 290 mcg capsule 290 mcg PO DAILY #30 caps 01/04/24 (Linzess) finasteride 5 mg tablet (Proscar) 5 mg PO DAILY bph 90 days #90 tabs 02/14/24 desmopressin 0.1 mg tablet 0.1 mg PO BID #60 tabs 03/15/24 doxazosin 4 mg tablet 4 mg PO DAILY #30 tabs 03/21/24 azithromycin 500 mg tablet 500 mg PO DAILY 5 days #5 tabs 04/11/24 cefuroxime axetil 500 mg tablet 500 mg PO BID #10 tabs 04/11/24 oseltamivir 6 mg/mL oral 75 mg (12.5 mL) PO BID 5 days #125 04/11/24 suspension (Tamiflu) mL prednisone 20 mg tablet 40 mg (2 x 20 mg) PO DAILY #10 tabs 04/11/24 Allergies Allergy/AdvReac Type Severity Reaction Status Date / Time clindamycin Allergy Unknown Unknown Verified 04/13/24 19:01 Sulfa (Sulfonamide Allergy Unknown UNKNOWN Verified 04/13/24 19:01 Antibiotics) [SULFA(SULFONAMIDE ANTIBIOTICS)] sulfamethoxazole Allergy Unknown Unknown Verified 04/13/24 19:01 [From Bactrim] trimethoprim [From Bactrim] Allergy Unknown Unknown Verified 04/13/24 19:01 Review of Systems 2 Constitutional: Constitutional: Denies body ache(s), Denies chills, Denies fever(s), Reports malaise, Reports poor appetite and Reports weakness ENT: Denies vertigo and Denies dizziness Cardiovascular: Cardiovascular: Denies chest pain and Denies dyspnea Respiratory: Respiratory: Reports cough and Denies dyspnea Gastrointestinal: Gastrointestinal: Denies abdominal pain, Denies nausea and Denies vomiting Musculoskeletal: Musculoskeletal: Denies back pain Integumentary/Breasts: Skin/Breast: Denies rash Neurologic: Denies vertigo, Denies dizziness and Reports weakness Psychiatric: Psychiatric: Denies anxiety PMFSH Past Medical History Medical History Dysphagia Rash Balanitis UTI (urinary tract infection) Acute UTI Aspiration into airway Closed fracture of left proximal humerus Bladder wall thickening Acute bronchitis COVID-19 virus infection Aspiration pneumonia Esophageal diverticulum 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 Paraparesis Metabolic encephalopathy COVID-19 Adult failure to thrive MVP (mitral valve prolapse) Mentally challenged Anxiety GERD (gastroesophageal reflux disease) Impaired glucose tolerance Tracheomalacia Schizophrenia Tubular adenoma of colon COPD (chronic obstructive pulmonary disease) Pneumonia Anemia Hypothyroid Depression Asthma Oropharyngeal dysphagia Surgical History History of bronchoscopy History of colonoscopy S/P tracheoplasty History of esophagogastroduodenoscopy (EGD) Family History Family History Family/Other Unknown family medical history Father Hypertension Mother Unknown family medical history Brother No problems noted. Sister No problems noted. Social History Social History Household Members: Unknown / Unable to assess Household Members Other:: Resides in [facility] Housing: Other Housing Other:: half-way Are you a primary rn transitional care to a significant other at home: No Unable to assess alcohol history related to: Unable to respond Alcohol intake: former Comment: 1:1 sitter Patient Tobacco Use Status: Never used Tobacco Tobacco use type: Cigarette e-Cigarette/Vaping Use: Never Used Second Hand Smoke Exposure: No Advance Directives: Yes Advance Directives on File: Yes Advance Directives Date on File: 11/28/20 Do you have a plan to hurt others: No Plan service: No Current occupational status: disabled Cognitive needs: Yes Hearing needs: No Vision needs: No Physical Exam ED Vital Signs: Vital Signs - 24 hr 04/13/24 18:59 04/13/24 19:22 Temperature 97.9 F Pulse Rate 60 72 Respiratory Rate 18 16 Blood Pressure 121/77 143/74 H Pulse Oximetry 96 95 Oxygen Delivery Method Nasal Cannula Room Air BMI result Body Mass Index 22.4 Const General: comfortable, no acute distress, alert and awake Nutritional Appearance: well nourished Orientation/consciousness: patient oriented x3 HENMT Head: Yes normocephalic and Yes atraumatic Eyes Eyelids: Yes eyelids normal Conjunctivae: conjunctivae normal Sclerae: sclerae normal Corneas: corneas normal Pupils: Equal, round and reactive pupils present EOM: EOMs intact bilaterally Neck Neck: Yes full ROM Resp Effort & Inspection: normal respiratory effort, able to speak in complete sentences and not labored Skin General skin exam: elasticity normal Neuro General: patient oriented x3 Cranial nerves: Yes Equal, round and reactive pupils present and Yes Bilaterally intact EOM present Cognition (Neuro): normal cognition Extrem Other: Moving all extremities well without any obvious deformities Medical Decision Making Medical Decision Making [facility] Narrative: 68-year-old male presents for evaluation of lethargy and altered mental status. He has a known diagnosis of aspiration pneumonitis and influenza. His vital signs are stable on arrival. He appears to be answering questions appropriately. He does fall asleep during my interview. He does not meet sepsis criteria. I ordered a CT scan of the chest that shows worsening pneumonitis versus pneumonia with new perihilar infiltrate. I added vancomycin and Unasyn. He was high risk for staph infections given his influenza diagnosis as well. We will discuss with the hospitalist for readmission due to worsening infection and metabolic encephalopathy Differential Diagnosis Differential Diagnoses: The differential diagnosis associated with the presentation includes Aspiration pneumonitis Metabolic encephalopathy Influenza a COPD exacerbation Admission/Observation Consideration of admission/observation: Escalation of care including admission/observation considered Lab Data [facility] Lab Attestation statement: I reviewed the patient's lab results. Mild leukopenia to 4.6 which is likely related to pneumonia. The patient has a chronic normocytic anemia. Hyponatremia to 146 chloride elevated to 111 and BUN elevated to 24. Creatinine is actually within normal limits and improved from his visit couple of days ago. 04/13/24 19:41 04/13/24 19:41 Labs: Lab Results 04/13/24 Range/Units 19:41 WBC 4.6 L (4.8-10.8) X10*3/uL RBC 3.97 L (4.60-5.80) X10*6/uL Hgb 12.1 L (14.0-18.0) g/dl Hct 36.9 L (42.0-52.0) % MCV 92.9 (80.0-98.0) fL MCH 30.5 (27.0-33.0) pg MCHC 32.8 (31.0-36.0) g/dl RDW 13.6 (11.0-16.0) % Plt Count 156 L (160-400) X10*3/uL MPV 10.7 (9.4-12.4) fL Immature Gran % (Auto) 2.8 H (0.0-0.4) % Neut % (Auto) 69.3 (45-73) % Lymph % (Auto) 21.4 (20-40) % [place] % (Auto) 6.3 (2-11) % Eos % (Auto) 0.0 (0-4) % Baso % (Auto) 0.2 (0-2) % Lymph # (Auto) 1.0 L (1.2-4.9) X10*3/uL [place] # (Auto) 0.3 (0.1-1.2) X10*3/uL Eos # (Auto) 0.0 (0.0-0.4) X10*3/uL Baso # (Auto) 0.0 (0.0-0.2) X10*3/uL Abs Immat Gran (auto) 0.13 H (0.00-0.03) X10*3/uL Absolute Neuts (auto) 3.2 (2.0-8.3) x10*3/uL Absolute Nucleated RBC 0.000 (0.0-0.012) X10*3/uL Nucleated RBC % (auto) 0.0 (0.0-0.2) /100WBC Smear Tech's Comments VERIFIED Sodium 146 H (135-145) mmol/L Potassium 4.1 (3.3-5.1) mmol/L Chloride 111 H (96-108) mmol/L Carbon Dioxide 27 (22-29) mmol/L Anion Gap 12 (12-20) BUN 24 H (9-16) mg/dL Creatinine 0.70 (0.5-1.4) mg/dL Estim Creat Clear Calc 86.2 Estimated GFR > 60 Random Glucose 108 (60-115) mg/dL Lactic Acid 1.0 (0.5-2.0) mmol/L Calcium 9.1 (8.4-10.2) mg/dL Total Bilirubin 0.4 (0.0-1.0) mg/dL AST 43 H (5-37) U/L ALT 27 (0-40) U/L Alkaline Phosphatase 58 (39-117) U/L B-Natriuretic Peptide 54 (<100) pg/mL Total Protein 6.4 L (6.5-8.0) g/dL Albumin 3.5 (3.5-5.0) g/dL Lipase 24 (8-78) U/L Influenza Type A (PCR) POSITIVE A (Negative) Influenza Type B (PCR) NEGATIVE (Negative) RSV RNA Qual (PCR) NEGATIVE (Negative) SARS-CoV-2 RNA (RT-PCR) NEGATIVE (Negative) Discharge Plan Discharge Clinical Impression: Influenza A, Aspiration pneumonitis Patient Disposition: Admitted As Inpatient Prescriptions: No Action (DME) right AFO See Rx Instructions .Route .MEDSUPPLY Qty: 1 0RF Rx Instructions: As directed desmopressin 0.1 mg tablet 0.1 mg PO BID Qty: 60 0RF doxazosin 4 mg tablet 4 mg PO DAILY Qty: 30 0RF omeprazole 20 mg capsule,delayed release(DR/EC) 40 mg PO BID@0630,1630 lorazepam 1 mg Tablet 1 mg PO BID sennosides [senna] 8.6 mg tablet 17.2 mg PO BEDTIME prednisone 20 mg tablet 40 mg PO DAILY Qty: 10 0RF cefuroxime axetil 500 mg tablet 500 mg PO BID Qty: 10 0RF azithromycin 500 mg tablet 500 mg PO DAILY 5 Days Qty: 5 0RF oseltamivir [Tamiflu] 6 mg/mL suspension for reconstitution 75 mg PO BID 5 Days Qty: 125 0RF (DME) pull ups small See Rx Instructions .Route .MEDSUPPLY Qty: 100 11RF Rx Instructions: As directed clozapine 100 mg tablet 200 mg PO BEDTIME clozapine 25 mg tablet 50 mg PO BID (DME) blood pressure monitor [Blood Pressure Kit] Kit See Rx Instructions .ROUTE .MEDSUPPLY Qty: 1 0RF Rx Instructions: As directed pediatric cuff (DME) compressor, for nebulizer Device See Rx Instructions .Route Qty: 1 0RF Rx Instructions: As directed fluoxetine 20 mg capsule 40 mg PO DAILY finasteride [Proscar] 5 mg tablet 5 mg PO DAILY 90 Days Qty: 90 3RF ferrous sulfate 220 mg (44 mg iron)/5 mL elixir 220 mg PO DAILY Qty: 473 2RF levetiracetam [Keppra] 100 mg/mL solution 500 mg PO BID Qty: 473 3RF levothyroxine 25 mcg tablet 25 mcg PO DAILY@0600 Qty: 30 3RF Rx Instructions: Crush the pill Linzess 290 mcg capsule 290 mcg PO DAILY Qty: 30 6RF Print Language: Swedish
[2024-04-13] MEDS: Ampicillin Sodium/Sulbactam Na 3 GM in 0.9 % Sodium Chloride 100 ML IV (21:46)
[2024-04-13 21:49] VITALS: BP 152/74; PULSE 56; RESP 14; O2SAT 97
[2024-04-13 22:29] VITALS: BP 135/71; PULSE 52; RESP 15; TEMP 36.5; O2SAT 96
[2024-04-13] MEDS: vancomycin HCL 1,500 MG in 0.9 % Sodium Chloride 500 ML 333.33 MG IV (22:48)
--- NOTE | 2024-04-13 23:00 | PM.IMHP ---
History of Present Illness Date of Service: 04/13/24 Attending physician on admission: Darnell [facility] Chief Complaint: AMS Addendum: notified by nursing that pt had diffuse red rash on abdomen, side, and chest shortly after vanco infusion. Pt did not appear in any acute distress and rash did not appear pruritic. Pt previously on Unasyn during last admission without any observed rash. Brief review of records does not show pt previously receiving vanco. Pt was given Benadryl IV. Will discontinue vanco and switch pt to Zosyn. Pt is a 68-year-old male with a PMH significant for?COPD, hypothyroidism, tracheomalacia with dysphagia, GERD, microcephaly, and schizophrenia with limited competency who presents to the ED from [facility] for evaluation of altered mental status. Pt was recently discharged from the hospital 2 days prior after being admitted from 04/09-04/11 for acute hypoxic respiratory failure in the setting of influenza type A and aspiration pneumonia. Pt was discharged back to [facility] on 5 days of Ceftin, azithromycin, prednisone, and Tamiflu. Staff from [facility] report pt today has been lethargic and speaking much less than normal since waking. Also report he was hypoxic at the facility, though that has not been redemonstrated here in the ED. Pt with limited capacity at baseline and is a poor historian. Pt answers ?I do not know? to ROS queries. Pt appears resting comfortably in bed, but noted to have nonproductive cough during interview and examination. Does not appear in acute respiratory distress. In the ED pt was mildly hypertensive at 152/74, satting at 97% on RA. Vitals otherwise WNL. Labs were largely reassuring though significant for sodium 146, and AST 43 (decreased from 1 on 04/09). No leukocytosis. Stable H&H of 12.1/36.9. Platelets mildly low at baseline. Renal function WNL. BNP WNL. CT?of head negative for acute intracranial abnormality. CTA of chest showed new airspace disease in right hilar region concerning for pneumonitis/pneumonia. EKG demonstrated normal sinus rhythm without evidence of significant ischemic changes. Pt was treated with Unasyn and vancomycin. Pt will be admitted to the hospital for treatment and further evaluation of acute metabolic encephalopathy in the setting of pneumonia that failed outpatient therapy. Review of Systems Review of Systems: Yes Unobtainable due to mental status [facility] Medical History Dysphagia Rash Balanitis UTI (urinary tract infection) Acute UTI Aspiration into airway Closed fracture of left proximal humerus Bladder wall thickening Acute bronchitis COVID-19 virus infection Aspiration pneumonia Esophageal diverticulum 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 Paraparesis Metabolic encephalopathy COVID-19 Adult failure to thrive MVP (mitral valve prolapse) Mentally challenged Anxiety GERD (gastroesophageal reflux disease) Impaired glucose tolerance Tracheomalacia Schizophrenia Tubular adenoma of colon COPD (chronic obstructive pulmonary disease) Pneumonia Anemia Hypothyroid Depression Asthma Oropharyngeal dysphagia Family History Family/Other Unknown family medical history Father Hypertension Mother Unknown family medical history Brother No problems noted. Sister No problems noted. Surgical History History of bronchoscopy History of colonoscopy S/P tracheoplasty History of esophagogastroduodenoscopy (EGD) Social History Household Members: Unknown / Unable to assess Household Members Other:: Resides in [facility] Housing: Other Housing Other:: residential Are you a primary skin care consultant to a significant other at home: No Unable to assess alcohol history related to: Unable to respond Alcohol intake: former Comment: 1:1 sitter Patient Tobacco Use Status: Never used Tobacco Tobacco use type: Cigarette Smoked in Last 30 Days: No e-Cigarette/Vaping Use: Never Used Second Hand Smoke Exposure: No Use of substances other than those prescribed or required for medical reasons: No Advance Directives: Yes Advance Directives on File: Yes Advance Directives Date on File: 11/28/20 Do you have a plan to hurt others: No Plan service: No Current occupational status: disabled Cognitive needs: Yes Hearing needs: No Vision needs: No Meds Allergies Allergy/AdvReac Type Severity Reaction Status Date / Time clindamycin Allergy Unknown Unknown Verified 04/13/24 19:01 Sulfa (Sulfonamide Allergy Unknown UNKNOWN Verified 04/13/24 19:01 Antibiotics) [SULFA(SULFONAMIDE ANTIBIOTICS)] sulfamethoxazole Allergy Unknown Unknown Verified 04/13/24 19:01 [From Bactrim] trimethoprim [From Bactrim] Allergy Unknown Unknown Verified 0220/25 19:01 vancomycin AdvReac Rash Verified 04/14/24 04:45 Home Medications ?Medication ?Instructions ?Recorded ?Confirmed ?Last Taken ?Type clozapine 100 mg tablet 200 mg PO BEDTIME 11/27/20 04/10/24 04/08/24 History clozapine 25 mg tablet 50 mg PO BID 08/13/21 04/10/24 04/09/24 History fluoxetine 20 mg capsule 40 mg PO DAILY 06/08/23 04/10/24 Unknown History lorazepam 1 mg tablet 1 mg PO BID 04/10/24 04/10/24 Unknown History omeprazole 20 mg capsule,delayed 40 mg PO BID@0630,1630 04/10/24 04/10/24 Unknown History release sennosides 8.6 mg tablet (senna) 17.2 mg PO BEDTIME 04/10/24 04/10/24 Unknown History Physical Exam Vital Signs and Narrative: Vital Signs: Last Vital Signs Temp 97.7 F 04/13/24 22:29 Pulse 52 04/13/24 22:29 Resp 15 04/13/24 22:29 BP 135/71 04/13/24 22:29 Pulse Ox 96 04/13/24 22:29 O2 Del Method Room Air 04/13/24 22:29 Oxygen Flow Rate 2 04/13/24 18:59 BMI result Body Mass Index 22.4 General: Somnolent but arousable. Alert and oriented to self, not to time, place, or situation. In no acute distress Resp: Difficult to auscultate due to persistent cough, not wanting to lean forward or to the side CVS: S1, S2, RRR GI: +BS, NT, no distention Skin: Warm, dry Neuro: Cranial nerves II-XII grossly intact bilaterally. Motor grossly intact bilaterally Extremities: No edema Psych: Pleasantly confused affect Results Labs 04/13/24 19:41 04/13/24 19:41 Labs: Laboratory Results - last 24 hr 04/13/24 19:41 MCV 92.9 MCH 30.5 MCHC 32.8 RDW 13.6 Plt Count 156 L MPV 10.7 Immature Gran % (Auto) 2.8 H Neut % (Auto) 69.3 Lymph % (Auto) 21.4 [place] % (Auto) 6.3 Eos % (Auto) 0.0 Baso % (Auto) 0.2 Lymph # (Auto) 1.0 L [place] # (Auto) 0.3 Eos # (Auto) 0.0 Baso # (Auto) 0.0 Abs Immat Gran (auto) 0.13 H Absolute Neuts (auto) 3.2 Absolute Nucleated RBC 0.000 Nucleated RBC % (auto) 0.0 Smear Tech's Comments VERIFIED Anion Gap 12 Estim Creat Clear Calc 86.2 Estimated GFR > 60 Random Glucose 108 Lactic Acid 1.0 Calcium 9.1 Total Bilirubin 0.4 AST 43 H ALT 27 Alkaline Phosphatase 58 B-Natriuretic Peptide 54 Total Protein 6.4 L Albumin 3.5 Lipase 24 Influenza Type A (PCR) POSITIVE A Influenza Type B (PCR) NEGATIVE RSV RNA Qual (PCR) NEGATIVE SARS-CoV-2 RNA (RT-PCR) NEGATIVE Assessment and Plan (1) Influenza A: Status: Acute (2) Aspiration pneumonia: Status: Acute Plan Pt is a 68-year-old male with a PMH significant for?COPD, hypothyroidism, tracheomalacia with dysphagia, GERD, microcephaly, and schizophrenia with limited competency who presents to the ED from [facility] for evaluation of altered mental status. Pt will be admitted to the hospital for treatment and further evaluation of acute metabolic encephalopathy in the setting of pneumonia that failed outpatient therapy. Acute metabolic encephalopathy in the setting of pneumonia and influenza a infection Pt more confused and lethargic from baseline per staff at [facility] Pt discharged 2 days prior after being treated for influenza type a infection and aspiration pneumonia Pt discharged on Ceftin, azithromycin, prednisone, and Tamiflu CT of chest showing new airspace disease in the right hilar region concerning pneumonitis/pneumonia No sepsis: Pt does not meet any SIRS criteria Will treat with Unasyn and vancomycin, started 04/14/2024 Continue Tamiflu x2 more days Monitor respiratory status and mentation Diet Seen by speech therapy last admission who recommended pureed solids and honey thick fluids Hypothyroidism Continue levothyroxine GERD Continue PPI Mood disorder Continue mood stabilizers DNR/DNI Attending:?Dr. Duenas DVT Prophylaxis: Lovenox Pt will require a hospitalization of at least two nights for treatment of?acute metabolic encephalopathy in the setting of worsening pneumonia that failed outpatient therapy and will require the administration of IV antibiotics. Quality Stroke Does the patient have a stroke diagnosis?: No VTE Prior VTE?: No VTE Risk Level:: Medical - moderate - high VTE Device Contraindication: Treatment Not Indicated VTE Drug Contraindication: N/A - Med Ordered
[2024-04-14] VITALS (10 sets, daily range): BP systolic 124–153; BP diastolic 70–84; PULSE 66–84; RESP 15–18; TEMP 36–38.2; O2SAT 93–98
--- NOTE | 2024-04-14 00:15 | PC.NURSE ---
pt incontinent of urine, bed linen changed and say care provided. male purewick placed for incontinence. 96.8F rectal temp, warm blankets placed on patient. call pedraza within reach.
--- NOTE | 2024-04-14 00:33 | MHC.EDTECH ---
0000 rounding done ,Patient awake ,resting quietly in bed ,Patient belongings list done .Telle Sitter camera in Place .
[2024-04-14 02:05] LABS: Appearance Urine Clear; Color Urine Yellow; Glucose Urine UA Negative (Negative); Leukocyte Esterase Urine Negative (Negative); Nitrite Urine Negative (Negative); Urine Blood Negative (Negative); Urine Ketones Negative (Negative); Urine Protein Negative (Neg-Trace)
[2024-04-14 02:08] LABS: Bacteria Urine None Seen (None Seen); Hyaline Casts Urine 0-2 /LPF (0-2); RBC Urine 0-2 /HPF (0-2); Squamous Epithelial Cell Urine 0-2 /HPF (0-2); WBC Urine 0-5 /HPF (0-5)
[2024-04-14] MEDS: Enoxaparin Sodium 40 MG/0.4 ML SYRINGE SUBCUT (02:25)
[2024-04-14] MEDS: Lactated Ringers 1,000 ML 100 ML IVCONT ×2 (02:25→12:13)
--- NOTE | 2024-04-14 04:23 | PC.NURSE ---
redness noted to skin pt does not appear to be itching, does not appear hive-like. lung sounds cta sats 96% on RA. pictures sent to haley pa thru [facility]. per PA will come to bedside to assess.
[2024-04-14] MEDS: Ampicillin Sodium/Sulbactam Na 3 GM in 0.9 % Sodium Chloride 100 ML IV (04:25)
[2024-04-14] MEDS: diphenhydrAMINE HCL 50 MG/ML VIAL 25 MG IVPUSH ×2 (04:39→17:27)
[2024-04-14 04:48] LABS: Hematocrit 37.6 % (42.0-52.0); Hemoglobin 12.7 g/dl (14.0-18.0); Mean Corpuscular HGB Conc 33.8 g/dl (31.0-36.0); Mean Corpuscular Hemoglobin 31.1 pg (27.0-33.0); Mean Corpuscular Volume 92.2 fL (80.0-98.0); Mean Platelet Volume 10.7 fL (9.4-12.4); Platelet Count 156 X10*3/uL (160-400); Red Blood Count 4.08 X10*6/uL (4.60-5.80); Red Cell Distribution Width 13.3 % (11.0-16.0); White Blood Count 7.1 X10*3/uL (4.8-10.8)
--- NOTE | 2024-04-14 04:49 | MHC.EDTECH ---
am labs drawn and sent to lab ,450 ml urine empty from male Dominic .
[2024-04-14 05:04] LABS: Anion Gap 14 (12-20); Blood Urea Nitrogen 19 mg/dL (9-16); Calcium 8.5 mg/dL (8.4-10.2); Carbon Dioxide 21 mmol/L (22-29); Chloride 112 mmol/L (96-108); Creatinine Clr Calc Pharmacy 91.4; Estimated Glomerular Filt Rate > 60; Glucose Random 83 mg/dL (60-115); Potassium 3.4 mmol/L (3.3-5.1); Sodium 144 mmol/L (135-145)
--- NOTE | 2024-04-14 07:40 | PHA.MEDREC ---
Pharmacy Consult ? Medication Reconciliation Pharmacy has completed the medication reconciliation. Received med list from the [facility]. Spoke with program contact, Kamille to confirm last dose of Clozapine.
--- NOTE | 2024-04-14 08:08 | MHC.EDTECH ---
I feed the patient he ate very well about 80% from his tray,resting quietly on his bed now within call pedraza on his reach.
--- NOTE | 2024-04-14 09:58 | PC.NURSE ---
This RN called pt long term to talk to nurse there, verified that pt takes pills crushed in pudding or liquid medicine.
[2024-04-14] MEDS: Doxazosin Mesylate 2 MG TABLET 4 MG PO (10:15)
[2024-04-14] MEDS: LORazepam 0.5 MG TABLET PO ×2 (10:17→20:13)
[2024-04-14] MEDS: FLUoxetine HCl 20 MG CAPSULE 40 MG PO (10:17)
[2024-04-14] MEDS: cloZAPine 25 MG TABLET 50 MG PO ×2 (10:19→20:13)
[2024-04-14] MEDS: levETIRAcetam Oral Soln 500 MG/5 ML PO ×2 (10:20→20:13)
[2024-04-14] MEDS: Piperacillin Sodium/Tazobactam 3.375 GM in 0.9 % Sodium Chloride 50 ML IV ×2 (10:24→16:06)
--- NOTE | 2024-04-14 10:46 | PC.NURSE ---
Patient can only have crushed pills, VERIFIED WITH PHARMACY THAT IT IS OK TO CRUSH PROSCAR FOR PT, JUST NEED TO TAKE PRECAUTIONS.
[2024-04-14] MEDS: Finasteride 5 MG TABLET PO (10:51)
[2024-04-14] MEDS: Acetaminophen 325 MG TABLET 650 MG PO (12:13)
--- NOTE | 2024-04-14 12:17 | PC.NURSE ---
Medicated per MAR for fever
--- NOTE | 2024-04-14 12:53 | MHC.CM.PN ---
Attempted to meet with patient in regards to discharge planning. Patient is currently confused. Spoke with patient's sister/HCP, Itzel, via telephone at [phone]. Itzel verifies [facility] at a detention. Anticipate patient will return home when medically stable. Copy of HCP verified to be on file. IMM explained and sent to Itzel via certified mail. senior living was able to transport patient home last admission. Anticipate they will be able to transport this admission. Continue to monitor for d/c needs.
--- NOTE | 2024-04-14 15:09 | PC.NURSE ---
Will continue to monitor temps, provider updated on temp and added order for IV Toradol if temp >100.4
--- NOTE | 2024-04-14 16:44 | PC.NURSE ---
Pt noted to have splotchy red rash over body after antibiotics finished. No signs of SOB/distress. Vital signs stable. Provider updated on condition. Pt did receive same antibiotic this morning with no issues.
--- NOTE | 2024-04-14 17:25 | P.PNIM_ITS ---
Subjective Subjective Date of Service: 04/14/24 Interval History: seen and evaluated isolated and non-verbal makes eye contact having rash Review of Systems Review of Systems: Yes Unobtainable due to mental status Physical Exam 2 Vital Signs: Vital Signs: Last Vital Signs Temp 99.8 F 04/14/24 16:36 Pulse 73 04/14/24 16:36 Resp 15 04/14/24 16:36 BP 152/79 H 04/14/24 16:36 Pulse Ox 98 04/14/24 16:36 O2 Del Method Room Air 04/14/24 16:36 Oxygen Flow Rate 2 04/13/24 18:59 BMI result Body Mass Index 22.4 Const: Other: Constitutional : not-interactive, non-verbal , not in distress Cardiovascular : no JVP, no lower extremity edema Respiratory : bilateral chest movement, not in resp distress Gastrointestinal: soft, lax, Non tender Skin : Warm, Dry, generalized rash macular Neurological : Alert , non-verbal , No focal deficit Objective Data Active Medications Acetaminophen (Acetaminophen 325 Mg Tablet) 650 mg PO Q6H PRN PRN Reason: Pain, Mild 1-3,fever,headache Last Admin: 04/14/24 12:13 Dose: 650 mg Documented By: MCKAY Calcium Carbonate (Calcium Carbonate 750 Mg Tab.Chew) 750 mg PO Q4H PRN PRN Reason: Heartburn Clozapine (Clozapine 25 Mg Tablet) 50 mg PO BID [facility] Last Admin: 04/14/24 10:19 Dose: 50 mg Documented By: MCKAY Clozapine (Clozapine 100 Mg Tablet) 200 mg PO BEDTIME [facility] Diphenhydramine HCl (Diphenhydramine Hcl 50 Mg/Ml Vial) 25 mg IVPUSH Q6H PRN PRN Reason: Allergic Reaction Doxazosin Mesylate (Doxazosin Mesylate 2 Mg Tablet) 4 mg PO DAILY [facility]; Protocol Last Admin: 04/14/24 10:15 Dose: 4 mg Documented By: MCKAY Enoxaparin Sodium (Enoxaparin Sodium 40 Mg/0.4 Ml Syringe) 40 mg SUBCUT Q24H [facility] Last Admin: 04/14/24 02:25 Dose: 40 mg Documented By: YECENIA Finasteride (Finasteride 5 Mg Tablet) 5 mg PO DAILY [facility] Last Admin: 04/14/24 10:51 Dose: 5 mg Documented By: COURT Fluoxetine HCl (Fluoxetine Hcl 20 Mg Capsule) 40 mg PO DAILY [facility] Last Admin: 04/14/24 10:17 Dose: 40 mg Documented By: MCKAY Piperacillin Sod/Tazobactam (Sod 3.375 gm/ Sodium Chloride) 50 mls @ 100 mls/hr IV Q6H [facility] Last Infusion: 04/14/24 16:44 Dose: Infused Documented By: MCKAY Lactated Ringer's (Lr) 1,000 mls @ 100 mls/hr IVCONT .Q10H [facility] Last Admin: 04/14/24 12:13 Dose: 100 mls/hr Documented By: MCKAY Ketorolac Tromethamine (Ketorolac Tromethamine 15 Mg/Ml Vial) 15 mg IVPUSH Q6H PRN PRN Reason: Fever >100.4 Levetiracetam (Levetiracetam Oral Soln 500 Mg/5 Ml) 500 mg PO BID [facility] Last Admin: 04/14/24 10:20 Dose: 500 mg Documented By: MCKAY Levothyroxine Sodium (Levothyroxine Sodium 25 Mcg Tablet) 25 mcg PO DAILY@0600 [facility] Lorazepam (Lorazepam 0.5 Mg Tablet) 0.5 mg PO BID [facility] Last Admin: 04/14/24 10:17 Dose: 0.5 mg Documented By: MCKAY Magnesium Hydroxide (Milk Of Magnesia 30 Ml Oral.Susp) 30 ml PO DAILY PRN PRN Reason: Constipation Melatonin (Melatonin 3 Mg Tablet) 6 mg PO BEDTIME PRN PRN Reason: Insomnia Non-Formulary Medication (Desmopressin) 0.1 mg PO BID [facility] Non-Formulary Medication (Linaclotide [Linzess]) 290 mcg PO DAILY [facility] Omeprazole (Omeprazole/Na Bicarb Oral Susp 20 Mg/10 Ml Ud Cup) 40 mg PO BID@0630,1630 [facility] Last Admin: 04/14/24 16:32 Dose: Not Given Documented By: MCKAY Non-Admin Reason: PATIENT REFUSED MED Ondansetron HCl (Ondansetron Hcl 4 Mg/2 Ml Vial) 4 mg IVPUSH Q8H PRN PRN Reason: Nausea and Vomiting Polyethylene Glycol (Polyethylene Glycol 3350 17 Gm Powd.Pack) 17 gm PO DAILY PRN PRN Reason: Constipation Senna (Sennosides 8.6 Mg Tablet) 17.2 mg PO BEDTIME [facility] Sodium Chloride (0.9 % Sodium Chloride Flush 3 Ml Syringe) 3 ml IVFLUSH QSHIFT [facility] Last Admin: 04/14/24 15:33 Dose: Not Given Documented By: MCKAY Non-Admin Reason: IV Running Labs 04/14/24 04:44 04/14/24 04:44 Labs: Laboratory Results - last 24 hr 04/13/24 04/14/24 04/14/24 19:41 01:27 04:44 MCV 92.9 92.2 MCH 30.5 31.1 MCHC 32.8 33.8 RDW 13.6 13.3 Plt Count 156 L 156 L MPV 10.7 10.7 Immature Gran % (Auto) 2.8 H Neut % (Auto) 69.3 Lymph % (Auto) 21.4 [place] % (Auto) 6.3 Eos % (Auto) 0.0 Baso % (Auto) 0.2 Lymph # (Auto) 1.0 L [place] # (Auto) 0.3 Eos # (Auto) 0.0 Baso # (Auto) 0.0 Abs Immat Gran (auto) 0.13 H Absolute Neuts (auto) 3.2 Absolute Nucleated RBC 0.000 0.000 Nucleated RBC % (auto) 0.0 0.0 Smear Tech's Comments VERIFIED Anion Gap 12 14 Estim Creat Clear Calc 86.2 91.4 Estimated GFR > 60 > 60 Random Glucose 108 83 Lactic Acid 1.0 Calcium 9.1 8.5 D Total Bilirubin 0.4 AST 43 H ALT 27 Alkaline Phosphatase 58 B-Natriuretic Peptide 54 Total Protein 6.4 L Albumin 3.5 Lipase 24 Urine Color Yellow Urine Appearance Clear Urine pH 8.0 Ur Specific [place] 1.020 Urine Protein Negative Urine Glucose (UA) Negative Urine Ketones Negative Urine Blood Negative Urine Nitrite Negative Ur Leukocyte Esterase Negative Urine RBC 0-2 Urine WBC 0-5 Ur Squamous Epith Cells 0-2 Urine Bacteria None Seen Hyaline Casts 0-2 Influenza Type A (PCR) POSITIVE A Influenza Type B (PCR) NEGATIVE RSV RNA Qual (PCR) NEGATIVE SARS-CoV-2 RNA (RT-PCR) NEGATIVE Assessment and Plan (1) Aspiration pneumonitis: Status: Acute (2) Acute hypoxemic respiratory failure: Status: Acute (3) Aspiration pneumonia: Status: Acute (4) Influenza A: Status: Acute Plan Pt is a 68-year-old male with a PMH significant for?COPD, hypothyroidism, tracheomalacia with dysphagia, GERD, microcephaly, and schizophrenia with limited competency who [facility] for evaluation of altered mental status. Pt will be admitted to the hospital for treatment and further evaluation of acute metabolic encephalopathy in the setting of pneumonia that failed outpatient therapy. Acute metabolic encephalopathy in the setting of pneumonia and influenza A infection confused and lethargic at baseline CT of chest showing new airspace disease in the right hilar region concerning pneumonitis/pneumonia Zosyn, started 04/14/2024 Continue Tamiflu x2 more days Monitor respiratory status and mentation Generalized rash related to antibiotics ? Flu ? give Benadryl and monitor Diet Seen by speech therapy last admission who recommended pureed solids and honey thick fluids Hypothyroidism Continue levothyroxine GERD Continue PPI Mood disorder Continue mood stabilizers DNR/DNI DVT Prophylaxis: Lovenox Pt will require a hospitalization overnight for treatment of?acute metabolic encephalopathy in the setting of worsening pneumonia that failed outpatient therapy and will require the administration of IV antibiotics. Quality Stroke Does the patient have a stroke diagnosis?: No VTE Prior VTE?: No VTE Risk Level:: Medical - moderate - high VTE Device Contraindication: Treatment Not Indicated VTE Drug Contraindication: N/A - Med Ordered
--- NOTE | 2024-04-14 17:28 | PC.NURSE ---
Per provider, medicated pt with Benadryl. Medicated per APR. Pts purewick leaked. Pt placed into hospital bed, changed and cleaned
--- NOTE | 2024-04-14 19:09 | HO.SKINPHOTO ---
Location: Coccyx Category: Stage: Length: Width: Depth: cm Location: Category: Stage: Length: Width: Depth: cm Location: Left heel Category: Stage: Length: Width: Depth: cm Location: Right heel Category: Stage: Length: Width: Depth: cm Location: Category: Stage: Length: Width: Depth: cm Location: Category: Stage: Length: Width: Depth: cm
--- NOTE | 2024-04-14 19:11 | PC.NURSE ---
Patient arrive to unit with IV in left forearm. LR running at ordered rate. Inflammation noted at site- skin cool to touch. Fluids stopped and IV removed. Patient requires new access. Oncoming RN aware.
[2024-04-14] MEDS: Sennosides 8.6 MG TABLET 17.2 MG PO (20:13)
[2024-04-14] MEDS: cloZAPine 100 MG TABLET 200 MG PO (20:13)
[2024-04-15] MEDS: Enoxaparin Sodium 40 MG/0.4 ML SYRINGE SUBCUT (00:17)
[2024-04-15] MEDS: Lactated Ringers 1,000 ML 100 ML IVCONT ×3 (00:17→17:11)
[2024-04-15] MEDS: Piperacillin Sodium/Tazobactam 3.375 GM in 0.9 % Sodium Chloride 50 ML IV ×5 (00:17→21:48)
[2024-04-15 04:00] VITALS: BP 125/65; PULSE 76; RESP 18; TEMP 36.7; O2SAT 95
[2024-04-15] MEDS: Omeprazole/Na Bicarb Oral Susp 20 MG/10 ML UD Cup 40 MG PO ×2 (05:05→16:17)
[2024-04-15] MEDS: Levothyroxine Sodium 25 MCG TABLET PO (05:06)
[2024-04-15 07:22] LABS: MANUAL DIFF FLAG NO
[2024-04-15 07:25] LABS: Basophils Percent Auto 0.5 % (0-2); Eosinophils Absolute Auto 0.1 X10*3/uL (0.0-0.4); Eosinophils Percent Auto 1.7 % (0-4); Hematocrit 37.7 % (42.0-52.0); Hemoglobin 12.5 g/dl (14.0-18.0); Imm Gran Abs Auto 0.23 X10*3/uL (0.00-0.03); Lymphocytes Absolute Auto 0.6 X10*3/uL (1.2-4.9); Lymphocytes Percent Auto 8.3 % (20-40); Mean Corpuscular HGB Conc 33.2 g/dl (31.0-36.0); Mean Corpuscular Hemoglobin 30.5 pg (27.0-33.0); Mean Platelet Volume 10.9 fL (9.4-12.4); Monocytes Absolute Auto 0.4 X10*3/uL (0.1-1.2); Monocytes Percent Auto 4.7 % (2-11); Neutrophils Absolute Auto 6.2 x10*3/uL (2.0-8.3); Neutrophils Percent Auto 81.8 % (45-73); Platelet Count 172 X10*3/uL (160-400); Red Cell Distribution Width 13.1 % (11.0-16.0); White Blood Count 7.6 X10*3/uL (4.8-10.8)
[2024-04-15 07:37] VITALS: BP 135/62; PULSE 80; RESP 18; TEMP 36.4; O2SAT 97
[2024-04-15 07:41] LABS: Anion Gap 12 (12-20); Blood Urea Nitrogen 16 mg/dL (9-16); Calcium 8.7 mg/dL (8.4-10.2); Carbon Dioxide 25 mmol/L (22-29); Chloride 107 mmol/L (96-108); Creatinine Clr Calc Pharmacy 81.5; Estimated Glomerular Filt Rate > 60; Glucose Random 89 mg/dL (60-115); Potassium 3.1 mmol/L (3.3-5.1); Sodium 141 mmol/L (135-145)
[2024-04-15] MEDS: cloZAPine 25 MG TABLET 50 MG PO ×2 (08:09→21:47)
[2024-04-15] MEDS: FLUoxetine HCl 20 MG CAPSULE 40 MG PO (08:09)
[2024-04-15] MEDS: levETIRAcetam Oral Soln 500 MG/5 ML PO ×2 (08:09→21:47)
[2024-04-15] MEDS: LORazepam 0.5 MG TABLET PO (08:09)
[2024-04-15] MEDS: 0.9 % Sodium Chloride Flush 3 ML SYRINGE IVFLUSH (08:10)
[2024-04-15] MEDS: Doxazosin Mesylate 2 MG TABLET 4 MG PO (08:10)
[2024-04-15] MEDS: Finasteride 5 MG TABLET PO (08:10)
--- NOTE | 2024-04-15 11:02 | MHC.CLN ---
NUTRITION PATIENT WITH DTI TO COCCYX. DIET=REGULAR, PUREE, WITH HONEY THICK LIQUIDS. ADDING FORTIFIED ICE CREAM (MAGIC CUP) TID TO PROMOTE SKIN INTEGRITY. SUPPLEMENT PROVIDES 870 KCALS, 27 G PROTEIN. COMPLETE NUTRITIONAL ASSESSMENT TO FOLLOW.
--- NOTE | 2024-04-15 11:51 | P.PNIM_ITS ---
Subjective Subjective Date of Service: 04/15/24 Interval History: seen and evaluated more interactive and verbal with 1-2 words looks comfortable makes eye contact having rash Review of Systems Review of Systems: Yes Unobtainable due to mental condition Physical Exam 2 Vital Signs: Vital Signs: Last Vital Signs Temp 97.5 F 04/15/24 07:37 Pulse 80 04/15/24 07:37 Resp 18 04/15/24 07:37 BP 135/62 04/15/24 07:37 Pulse Ox 97 04/15/24 07:37 O2 Del Method Room Air 04/15/24 07:37 Oxygen Flow Rate 2 04/13/24 18:59 BMI result Body Mass Index 22.4 Const: Other: Constitutional : not-interactive, non-verbal , not in distress Cardiovascular : no JVP, no lower extremity edema Respiratory : bilateral chest movement, not in resp distress Gastrointestinal: soft, lax, Non tender Skin : Warm, Dry, generalized rash macular Neurological : Alert , non-verbal , No focal deficit Objective Data Active Medications Acetaminophen (Acetaminophen 325 Mg Tablet) 650 mg PO Q6H PRN PRN Reason: Pain, Mild 1-3,fever,headache Last Admin: 04/14/24 12:13 Dose: 650 mg Documented By: MCKAY Calcium Carbonate (Calcium Carbonate 750 Mg Tab.Chew) 750 mg PO Q4H PRN PRN Reason: Heartburn Clozapine (Clozapine 25 Mg Tablet) 50 mg PO BID [facility] Last Admin: 04/15/24 08:09 Dose: 50 mg Documented By: KATHRINE Clozapine (Clozapine 100 Mg Tablet) 200 mg PO BEDTIME [facility] Last Admin: 04/14/24 20:13 Dose: 200 mg Documented By: TERESITA Diphenhydramine HCl (Diphenhydramine Hcl 50 Mg/Ml Vial) 25 mg IVPUSH Q6H PRN PRN Reason: Allergic Reaction Last Admin: 04/14/24 17:27 Dose: 25 mg Documented By: MCKAY Doxazosin Mesylate (Doxazosin Mesylate 2 Mg Tablet) 4 mg PO DAILY [facility]; Protocol Last Admin: 04/15/24 08:10 Dose: 4 mg Documented By: KATHRINE Enoxaparin Sodium (Enoxaparin Sodium 40 Mg/0.4 Ml Syringe) 40 mg SUBCUT Q24H [facility] Last Admin: 04/15/24 00:17 Dose: 40 mg Documented By: TERESITA Finasteride (Finasteride 5 Mg Tablet) 5 mg PO DAILY [facility] Last Admin: 04/15/24 08:10 Dose: 5 mg Documented By: KATHRINE Fluoxetine HCl (Fluoxetine Hcl 20 Mg Capsule) 40 mg PO DAILY [facility] Last Admin: 04/15/24 08:09 Dose: 40 mg Documented By: KATHRINE Piperacillin Sod/Tazobactam (Sod 3.375 gm/ Sodium Chloride) 50 mls @ 100 mls/hr IV Q6H [facility] Last Infusion: 04/15/24 11:14 Dose: Infused Documented By: KATHRINE Lactated Ringer's (Lr) 1,000 mls @ 100 mls/hr IVCONT .Q10H [facility] Last Admin: 04/15/24 09:32 Dose: 100 mls/hr Documented By: KATHRINE Ketorolac Tromethamine (Ketorolac Tromethamine 15 Mg/Ml Vial) 15 mg IVPUSH Q6H PRN PRN Reason: Fever >100.4 Levetiracetam (Levetiracetam Oral Soln 500 Mg/5 Ml) 500 mg PO BID [facility] Last Admin: 04/15/24 08:09 Dose: 500 mg Documented By: KATHRINE Levothyroxine Sodium (Levothyroxine Sodium 25 Mcg Tablet) 25 mcg PO DAILY@0600 [facility] Last Admin: 04/15/24 05:06 Dose: 25 mcg Documented By: TERESITA Lorazepam (Lorazepam 0.5 Mg Tablet) 0.5 mg PO BID [facility] Last Admin: 04/15/24 08:09 Dose: 0.5 mg Documented By: KATHRINE Magnesium Hydroxide (Milk Of Magnesia 30 Ml Oral.Susp) 30 ml PO DAILY PRN PRN Reason: Constipation Melatonin (Melatonin 3 Mg Tablet) 6 mg PO BEDTIME PRN PRN Reason: Insomnia Non-Formulary Medication (Desmopressin) 0.1 mg PO BID [facility] Non-Formulary Medication (Linaclotide [Linzess]) 290 mcg PO DAILY [facility] Omeprazole (Omeprazole/Na Bicarb Oral Susp 20 Mg/10 Ml Ud Cup) 40 mg PO BID@0630,1630 [facility] Last Admin: 04/15/24 05:05 Dose: 40 mg Documented By: TERESITA Ondansetron HCl (Ondansetron Hcl 4 Mg/2 Ml Vial) 4 mg IVPUSH Q8H PRN PRN Reason: Nausea and Vomiting Polyethylene Glycol (Polyethylene Glycol 3350 17 Gm Powd.Pack) 17 gm PO DAILY PRN PRN Reason: Constipation Senna (Sennosides 8.6 Mg Tablet) 17.2 mg PO BEDTIME [facility] Last Admin: 04/14/24 20:13 Dose: 17.2 mg Documented By: TERESITA Sodium Chloride (0.9 % Sodium Chloride Flush 3 Ml Syringe) 3 ml IVFLUSH QSHIFT [facility] Last Admin: 04/15/24 08:10 Dose: 3 ml Documented By: KATHRINE Labs 04/15/24 06:55 04/15/24 06:55 Labs: Laboratory Results - last 24 hr 04/15/24 06:55 MCV 92.0 MCH 30.5 MCHC 33.2 RDW 13.1 Plt Count 172 MPV 10.9 Immature Gran % (Auto) 3.0 H Neut % (Auto) 81.8 H Lymph % (Auto) 8.3 L [place] % (Auto) 4.7 Eos % (Auto) 1.7 Baso % (Auto) 0.5 Lymph # (Auto) 0.6 L [place] # (Auto) 0.4 Eos # (Auto) 0.1 Baso # (Auto) 0.0 Abs Immat Gran (auto) 0.23 H Absolute Neuts (auto) 6.2 Absolute Nucleated RBC 0.000 Nucleated RBC % (auto) 0.0 Anion Gap 12 Estim Creat Clear Calc 81.5 Estimated GFR > 60 Random Glucose 89 Calcium 8.7 Microbiology Microbiology Results: Microbiology 04/13/24 19:43 Blood Culture - Preliminary Blood - Venous No growth after 24 hours. 04/13/24 19:41 Blood Culture - Preliminary Blood - Venous No growth after 24 hours. Assessment and Plan (1) Aspiration pneumonitis: Status: Acute (2) Influenza A: Status: Acute (3) Aspiration pneumonia: Status: Acute Plan Pt is a 68-year-old male with a PMH significant for?COPD, hypothyroidism, tracheomalacia with dysphagia, GERD, microcephaly, and schizophrenia with limited competency who [facility] for evaluation of altered mental status. Pt will be admitted to the hospital for treatment and further evaluation of acute metabolic encephalopathy in the setting of pneumonia that failed outpatient therapy. Acute metabolic encephalopathy in the setting of pneumonia and influenza A infection confused and lethargic at baseline CT of chest showing new airspace disease in the right hilar region concerning pneumonitis/pneumonia Albertina, 04/14/2024 Continue Tamiflu Monitor respiratory status and mentation Generalized rash related to antibiotics ? Flu ? give Benadryl and monitor Diet Seen by speech therapy last admission who recommended pureed solids and honey thick fluids Hypothyroidism Continue levothyroxine GERD Continue PPI Mood disorder Continue mood stabilizers DNR/DNI DVT Prophylaxis: Lovenox Pt will require a hospitalization overnight for treatment of?acute metabolic encephalopathy in the setting of worsening pneumonia that failed outpatient therapy and will require the administration of IV antibiotics. Quality Stroke Does the patient have a stroke diagnosis?: No VTE Prior VTE?: No VTE Risk Level:: Medical - moderate - high VTE Device Contraindication: Treatment Not Indicated VTE Drug Contraindication: N/A - Med Ordered
[2024-04-15 15:16] VITALS: BP 103/55; PULSE 73; RESP 14; TEMP 36.7; O2SAT 94
[2024-04-15] MEDS: Potassium Chloride Packet 20 MEQ PACKET 40 MEQ PO (16:17)
[2024-04-15 19:13] VITALS: BP 123/63; PULSE 71; RESP 16; TEMP 36.4; O2SAT 95
[2024-04-15] MEDS: cloZAPine 100 MG TABLET 200 MG PO (21:48)
[2024-04-15] MEDS: Sennosides 8.6 MG TABLET 17.2 MG PO (21:48)
[2024-04-16] MEDS: Enoxaparin Sodium 40 MG/0.4 ML SYRINGE SUBCUT (01:24)
[2024-04-16 03:18] VITALS: BP 96/51; PULSE 68; RESP 20; TEMP 36.3; O2SAT 95
[2024-04-16] MEDS: Lactated Ringers 1,000 ML 100 ML IVCONT (03:36)
[2024-04-16] MEDS: Piperacillin Sodium/Tazobactam 3.375 GM in 0.9 % Sodium Chloride 50 ML IV ×4 (04:02→21:33)
[2024-04-16] MEDS: Omeprazole/Na Bicarb Oral Susp 20 MG/10 ML UD Cup 40 MG PO ×2 (06:30→15:48)
[2024-04-16] MEDS: Levothyroxine Sodium 25 MCG TABLET PO (06:30)
[2024-04-16 07:28] VITALS: BP 126/67; PULSE 74; RESP 18; TEMP 36.3; O2SAT 95
[2024-04-16 08:47] VITALS: BP 117/62
[2024-04-16] MEDS: Doxazosin Mesylate 2 MG TABLET 4 MG PO (08:47)
[2024-04-16] MEDS: Finasteride 5 MG TABLET PO (08:47)
[2024-04-16] MEDS: cloZAPine 25 MG TABLET 50 MG PO ×2 (08:47→21:33)
[2024-04-16] MEDS: FLUoxetine HCl 20 MG CAPSULE 40 MG PO (08:47)
[2024-04-16] MEDS: levETIRAcetam Oral Soln 500 MG/5 ML PO ×2 (08:47→21:33)
[2024-04-16] MEDS: LORazepam 0.5 MG TABLET PO ×2 (08:50→21:33)
[2024-04-16] MEDS: 0.9 % Sodium Chloride Flush 3 ML SYRINGE IVFLUSH ×3 (08:56→21:34)
--- NOTE | 2024-04-16 12:16 | HO.PM.IMPN ---
Subjective Subjective Date of Service: 04/16/24 Interval History: seen and evaluated more interactive and verbal with 1-2 words looks comfortable makes eye contact having rash Physical Exam Vital Signs: Vital Signs: Last Vital Signs Temp 97.3 F 04/16/24 07:28 Pulse 74 04/16/24 07:28 Resp 18 04/16/24 07:28 BP 117/62 04/16/24 08:47 Pulse Ox 95 04/16/24 07:28 O2 Del Method Room Air 04/16/24 07:28 Oxygen Flow Rate 2 04/13/24 18:59 BMI result Body Mass Index 22.4 Const: Other: Constitutional : not-interactive, non-verbal , not in distress Cardiovascular : no JVP, no lower extremity edema Respiratory : bilateral chest movement, not in resp distress Gastrointestinal: soft, lax, Non tender Skin : Warm, Dry, generalized rash macular Neurological : Alert , non-verbal , No focal deficit Objective Data Active Medications Acetaminophen (Acetaminophen 325 Mg Tablet) 650 mg PO Q6H PRN PRN Reason: Pain, Mild 1-3,fever,headache Last Admin: 04/14/24 12:13 Dose: 650 mg Documented By: MCKAY Calcium Carbonate (Calcium Carbonate 750 Mg Tab.Chew) 750 mg PO Q4H PRN PRN Reason: Heartburn Clozapine (Clozapine 25 Mg Tablet) 50 mg PO BID [facility] Last Admin: 04/16/24 08:47 Dose: 50 mg Documented By: KATHRINE Clozapine (Clozapine 100 Mg Tablet) 200 mg PO BEDTIME [facility] Last Admin: 04/15/24 21:48 Dose: 200 mg Documented By: BETTY Diphenhydramine HCl (Diphenhydramine Hcl 50 Mg/Ml Vial) 25 mg IVPUSH Q6H PRN PRN Reason: Allergic Reaction Last Admin: 04/14/24 17:27 Dose: 25 mg Documented By: MCKAY Doxazosin Mesylate (Doxazosin Mesylate 2 Mg Tablet) 4 mg PO DAILY [facility]; Protocol Last Admin: 04/16/24 08:47 Dose: 4 mg Documented By: KATHRINE Enoxaparin Sodium (Enoxaparin Sodium 40 Mg/0.4 Ml Syringe) 40 mg SUBCUT Q24H [facility] Last Admin: 04/16/24 01:24 Dose: 40 mg Documented By: BETTY Finasteride (Finasteride 5 Mg Tablet) 5 mg PO DAILY [facility] Last Admin: 04/16/24 08:47 Dose: 5 mg Documented By: KATHRINE Fluoxetine HCl (Fluoxetine Hcl 20 Mg Capsule) 40 mg PO DAILY [facility] Last Admin: 04/16/24 08:47 Dose: 40 mg Documented By: KATHRINE Piperacillin Sod/Tazobactam (Sod 3.375 gm/ Sodium Chloride) 50 mls @ 100 mls/hr IV Q6H [facility] Last Infusion: 04/16/24 11:57 Dose: Infused Documented By: SONAL Ketorolac Tromethamine (Ketorolac Tromethamine 15 Mg/Ml Vial) 15 mg IVPUSH Q6H PRN PRN Reason: Fever >100.4 Levetiracetam (Levetiracetam Oral Soln 500 Mg/5 Ml) 500 mg PO BID [facility] Last Admin: 04/16/24 08:47 Dose: 500 mg Documented By: KATHRINE Levothyroxine Sodium (Levothyroxine Sodium 25 Mcg Tablet) 25 mcg PO DAILY@0600 [facility] Last Admin: 04/16/24 06:30 Dose: 25 mcg Documented By: BETTY Lorazepam (Lorazepam 0.5 Mg Tablet) 0.5 mg PO BID [facility] Last Admin: 04/16/24 08:50 Dose: 0.5 mg Documented By: KATHRINE Magnesium Hydroxide (Milk Of Magnesia 30 Ml Oral.Susp) 30 ml PO DAILY PRN PRN Reason: Constipation Melatonin (Melatonin 3 Mg Tablet) 6 mg PO BEDTIME PRN PRN Reason: Insomnia Non-Formulary Medication (Desmopressin) 0.1 mg PO BID [facility] Non-Formulary Medication (Linaclotide [Linzess]) 290 mcg PO DAILY [facility] Omeprazole (Omeprazole/Na Bicarb Oral Susp 20 Mg/10 Ml Ud Cup) 40 mg PO BID@0630,1630 [facility] Last Admin: 04/16/24 06:30 Dose: 40 mg Documented By: BETTY Ondansetron HCl (Ondansetron Hcl 4 Mg/2 Ml Vial) 4 mg IVPUSH Q8H PRN PRN Reason: Nausea and Vomiting Polyethylene Glycol (Polyethylene Glycol 3350 17 Gm Powd.Pack) 17 gm PO DAILY PRN PRN Reason: Constipation Senna (Sennosides 8.6 Mg Tablet) 17.2 mg PO BEDTIME [facility] Last Admin: 04/15/24 21:48 Dose: 17.2 mg Documented By: BETTY Sodium Chloride (0.9 % Sodium Chloride Flush 3 Ml Syringe) 3 ml IVFLUSH QSHIFT [facility] Last Admin: 04/16/24 08:56 Dose: 3 ml Documented By: DINAKEYS Labs 04/15/24 06:55 04/15/24 06:55 Microbiology Microbiology Results: Microbiology 04/13/24 19:43 Blood Culture - Preliminary Blood - Venous No growth after 48 hours. 04/13/24 19:41 Blood Culture - Preliminary Blood - Venous No growth after 48 hours. Assessment and Plan (1) Aspiration pneumonitis: Status: Acute (2) Influenza A: Status: Acute (3) Acute hypoxemic respiratory failure: Status: Acute (4) Aspiration pneumonia: Status: Acute Plan Pt is a 68-year-old male with a PMH significant for?COPD, hypothyroidism, tracheomalacia with dysphagia, GERD, microcephaly, and schizophrenia with limited competency who presents [facility] the ED from [facility] for evaluation of altered mental status. Pt will be admitted to the hospital for treatment and further evaluation of acute metabolic encephalopathy in the setting of pneumonia that failed outpatient therapy. Acute metabolic encephalopathy in the setting of pneumonia and influenza A infection confused and lethargic at baseline CT of chest showing new airspace disease in the right hilar region concerning pneumonitis/pneumonia Albertina, 04/14/2024 Continue Tamiflu Monitor respiratory status and mentation Generalized rash related to antibiotics ? Flu ? give Benadryl and monitor Diet Seen by speech therapy last admission who recommended pureed solids and honey thick fluids Hypothyroidism Continue levothyroxine GERD Continue PPI Mood disorder Continue mood stabilizers DNR/DNI DVT Prophylaxis: Lovenox Pt will require a hospitalization overnight for treatment of?acute metabolic encephalopathy in the setting of worsening pneumonia that failed outpatient therapy and will require the administration of IV antibiotics. Quality Stroke Does the patient have a stroke diagnosis?: No VTE Prior VTE?: No VTE Risk Level:: Medical - moderate - high VTE Device Contraindication: Treatment Not Indicated VTE Drug Contraindication: N/A - Med Ordered
[2024-04-16 15:13] VITALS: BP 104/62; PULSE 67; RESP 16; TEMP 36.4; O2SAT 95
[2024-04-16 19:49] VITALS: BP 100/56; PULSE 68; RESP 16; TEMP 36.3; O2SAT 96
[2024-04-16] MEDS: Milk of Magnesia 30 ML ORAL.SUSP PO (21:33)
[2024-04-16] MEDS: Sennosides 8.6 MG TABLET 17.2 MG PO (21:33)
[2024-04-16] MEDS: cloZAPine 100 MG TABLET 200 MG PO (21:33)
[2024-04-17] MEDS: Enoxaparin Sodium 40 MG/0.4 ML SYRINGE SUBCUT (01:51)
[2024-04-17 03:12] VITALS: BP 104/55; PULSE 74; RESP 16; TEMP 36.3; O2SAT 99
[2024-04-17] MEDS: Omeprazole/Na Bicarb Oral Susp 20 MG/10 ML UD Cup 40 MG PO (05:20)
[2024-04-17] MEDS: Levothyroxine Sodium 25 MCG TABLET PO (05:20)
[2024-04-17] MEDS: Piperacillin Sodium/Tazobactam 3.375 GM in 0.9 % Sodium Chloride 50 ML IV ×2 (05:20→09:55)
[2024-04-17 07:46] VITALS: BP 101/56; PULSE 76; RESP 17; TEMP 36.3; O2SAT 98
[2024-04-17] MEDS: 0.9 % Sodium Chloride Flush 3 ML SYRINGE IVFLUSH (09:53)
[2024-04-17] MEDS: levETIRAcetam Oral Soln 500 MG/5 ML PO (09:55)
[2024-04-17] MEDS: FLUoxetine HCl 20 MG CAPSULE 40 MG PO (09:56)
[2024-04-17] MEDS: cloZAPine 25 MG TABLET 50 MG PO (09:56)
[2024-04-17] MEDS: Doxazosin Mesylate 2 MG TABLET 4 MG PO (09:56)
[2024-04-17] MEDS: LORazepam 0.5 MG TABLET PO (09:57)
[2024-04-17] MEDS: Finasteride 5 MG TABLET PO (09:58)
--- NOTE | 2024-04-17 11:00 | HO.WOUND ---
Wound Consult: Initial 68yr old male? admitted to [facility] on 04/13/24 - See progress notes and H&P for detailed history.? Wound consult placed for Coccyx and Bilateral Heels.? Patient agreeable to assessment and photo documentation.? Left Heel Right heel Etiology: ?DTI ?Present on Admission Wound Bed: dark purple nonblanchable tissue - boggy center Drainage / Odor: None Edges: ? well defined Em wound: dry callused ? No Induration, Fluctuance or Warmth noted Pain: tenderness reported Goals of Treatment: Off load pressure Sacrum Etiology: ?DTI?in Evolution Present on Admission Wound Bed: red maroon purple nonblanchable tissue with epidermal sloughing noted Drainage / Odor: serosang Edges: irregular and attached ? Em wound: MASD - ? No Induration, Fluctuance or Warmth noted Pain: denies Goals of Treatment: ? Off load pressure and foam to aid in pressure redistribution Recommendations: 1. Turn and Reposition every 2 hours and as needed for patient comfort.? Use pillows or wedges to support off loading positions. 2. Off Load all bony prominences with use of pillows and heel boots if needed.? Apply Preventative foams where needed. ? 3. Monitor for incontinence and moisture control, use barrier creams when needed for prevention and treatment. 4. Provide adequate and supplemental nutrition.? 5. Continue low air loss mattress. 6. When applicable maintain blood glucose levels per Providers order. 7. Sacrum and Bilateral Heels - Off Load Pressure with Q2 hr turns and use of pillows - Cleanse with PH balance spray or wipes, pat dry. ?Apply skin prep allow to dry. Cover with foam dressing to aid in off loading and protection from friction. Change every 5 days and PRN. Re-consult wound care Nurse for wound deterioration or wound changes.
--- NOTE | 2024-04-17 11:25 | P.DS_ITS ---
DS: Providers Provider Date of Service: 04/17/24 Date of admission: 04/13/24 23:50 Date of discharge: 04/17/24 Primary care physician: Yasmin Latham NP Consults: 04/14/24 19:10 Consult to Wound Care Routine Reason for consultation: Coccyx and bilateral heels DS: Diagnosis Discharge Diagnosis (1) Aspiration pneumonitis: Status: Acute (2) Influenza A: Status: Acute (3) Acute hypoxemic respiratory failure: Status: Acute (4) Aspiration pneumonia: Status: Acute DS: Summary Hospital Course Hospital Course: Admission note HPI Pt is a 68-year-old male with a PMH significant for?COPD, hypothyroidism, tracheomalacia with dysphagia, GERD, microcephaly, and schizophrenia with limited competency who presents to the ED from [facility] for evaluation of altered mental status. Pt was recently discharged from the hospital 2 days prior after being admitted from 04/09-04/11 for acute hypoxic respiratory failure in the setting of influenza type A and aspiration pneumonia. Pt was discharged back to [facility] on 5 days of Ceftin, azithromycin, prednisone, and Tamiflu. Staff from [facility] report pt today has been lethargic and speaking much less than normal since waking. Also report he was hypoxic at the facility, though that has not been redemonstrated here in the ED. Pt with limited capacity at baseline and is a poor historian. Pt answers ?I do not know? to ROS queries. Pt appears resting comfortably in bed, but noted to have nonproductive cough during interview and examination. Does not appear in acute respiratory distress. In the ED pt was mildly hypertensive at 152/74, satting at 97% on RA. Vitals otherwise WNL. Labs were largely reassuring though significant for sodium 146, and AST 43 (decreased from 1 on 04/09). No leukocytosis. Stable H&H of 12.1/36.9. Platelets mildly low at baseline. Renal function WNL. BNP WNL. CT?of head negative for acute intracranial abnormality. CTA of chest showed new airspace disease in right hilar region concerning for pneumonitis/pneumonia. EKG demonstrated normal sinus rhythm without evidence of significant ischemic changes. Pt was treated with Unasyn and vancomycin. Pt will be admitted to the hospital for treatment and further evaluation of acute metabolic encephalopathy in the setting of pneumonia that failed outpatient therapy. Hospital course The patient was treated for Acute metabolic encephalopathy in the setting of pneumonia and influenza A infection as CT of chest showing new airspace disease in the right hilar region concerning pneumonitis/pneumonia. Responded well to Zosyn and Tamiflu while inpatient as he was weaned off O2 and was saturating late 90s% on room air. culture remained negative. To be discharged on 5 more days of Augmentin. He mental status improved back to baseline and he was to verbalize his needs denying and complaints. He has Generalized rash that could be related to antibiotics or infection. responded to as needed Benadryl which can be used if needed. Discharge plan Continue Augmentin for 5 more day increase activity as toelrated Time Attestation Discharge Coordination Time (in mins): 42 Quality: Safe Use of Opioids Does Pt have an Active Cancer Diagnosis on the Problem List?: No Quality: Stroke Does the patient have a stroke diagnosis?: No Physical Exam Vital Signs: Vital Signs: Last Vital Signs Temp 97.4 F 04/17/24 07:46 Pulse 76 04/17/24 07:46 Resp 17 04/17/24 07:46 BP 101/56 L 04/17/24 07:46 Pulse Ox 98 04/17/24 07:46 O2 Del Method Room Air 04/17/24 07:46 Oxygen Flow Rate 2 04/13/24 18:59 BMI result Body Mass Index 22.4 Const: Other: Constitutional : interactive, verbal , not in distress Cardiovascular : no JVP, no lower extremity edema Respiratory : bilateral chest movement, not in resp distress Gastrointestinal: soft, lax, Non tender Skin : Warm, Dry, generalized rash macular Neurological : Alert , respond with 2-3 words sentences , No focal deficit DS: Data Data Completed and Pending Labs on day of discharge: Preliminary micro results at discharge 04/13/24 19:43 Blood Culture - Preliminary Blood - Venous No growth after 48 hours. 04/13/24 19:41 Blood Culture - Preliminary Blood - Venous No growth after 48 hours. Imaging Chest x-ray: Radiologist's impression: IMPRESSION: 1. New airspace disease in the right hilar region concerning for pneumonitis/pneumonia. Recommend attention on follow-up to ensure resolution. 2 redemonstration of the bilateral scarring compared to 02/04/2023.. This document has been electronically signed by: Bijan Solo MD on 04/13/2024 20:35:56 Discharge Plan Discharge Anticipated Discharge Date/Time: 04/17/24 11:22 Patient Disposition: Xfer Other Discharge Diagnosis: Pneumonia Referrals: Yasmin Latham MOBILITY SPECIALIST [Primary Care Provider] - 1 Week Discharge Medications: New amoxicillin-pot clavulanate 400-57 mg/5 mL suspension for reconstitution 10 ml PO BID Qty: 100 0RF Continued (DME) right AFO See Rx Instructions .Route .MEDSUPPLY Qty: 1 0RF Rx Instructions: As directed desmopressin 0.1 mg tablet 0.1 mg PO BID Qty: 60 0RF doxazosin 4 mg tablet 4 mg PO DAILY Qty: 30 0RF omeprazole 20 mg capsule,delayed release(DR/EC) 40 mg PO BID@0630,1630 sennosides [senna] 8.6 mg tablet 17.2 mg PO BEDTIME prednisone 20 mg tablet 40 mg PO DAILY Qty: 10 0RF acetaminophen 325 mg Tablet 650 mg PO Q4H PRN (Reason: pain or fever) polyethylene glycol 3350 17 gram Powder In Packet 17 g PO DAILY PRN (Reason: Constipation) polyvinyl alcohol [Artificial Tears (polyvin alc)] 1.4 % Drops 1 drp OPHTHALMIC (EYE) QID PRN (Reason: Dry Eyes) lorazepam 0.5 mg Tablet 0.5 mg PO BID carboxymethylcellulose sodium 0.5 % Drops 1 drp OPHTHALMIC (EYE) QID ibuprofen 200 mg Tablet 600 mg PO DAILY PRN (Reason: Pain) Robitussin Cough-Chest Samson DM 5-50 mg/5 mL Liquid 20 ml PO Q4H PRN (Reason: Cough) Liquid C 500 mg/5 mL Liquid 500 mg PO DAILY (DME) pull ups small See Rx Instructions .Route .MEDSUPPLY Qty: 100 11RF Rx Instructions: As directed clozapine 100 mg tablet 200 mg PO BEDTIME clozapine 25 mg tablet 50 mg PO BID (DME) blood pressure monitor [Blood Pressure Kit] Kit See Rx Instructions .ROUTE .MEDSUPPLY Qty: 1 0RF Rx Instructions: As directed pediatric cuff (DME) compressor, for nebulizer Device See Rx Instructions .Route Qty: 1 0RF Rx Instructions: As directed fluoxetine 20 mg capsule 40 mg PO DAILY finasteride [Proscar] 5 mg tablet 5 mg PO DAILY 90 Days Qty: 90 3RF ferrous sulfate 220 mg (44 mg iron)/5 mL elixir 220 mg PO DAILY Qty: 473 2RF levetiracetam [Keppra] 100 mg/mL solution 500 mg PO BID Qty: 473 3RF levothyroxine 25 mcg tablet 25 mcg PO DAILY@0600 Qty: 30 3RF Rx Instructions: Crush the pill Linzess 290 mcg capsule 290 mcg PO DAILY Qty: 30 6RF Discontinued cefuroxime axetil 500 mg tablet 500 mg PO BID Qty: 10 0RF azithromycin 500 mg tablet 500 mg PO DAILY 5 Days Qty: 5 0RF oseltamivir 75 mg Capsule 75 mg PO BID Discharge Orders: Discharge Order (Routine); Ordered 04/17/24 Ordered By: Kady Gómez Diet: Advance to usual diet Activity on Discharge: As tolerated Stand Alone Forms: Patient Portal Discharge page Print Language: [place] Care Plan Goals: Continue Augmentin for 5 more day increase activity as toelrated Health Concerns: Pneumonia Influenza Plan of Treatment: Antibiotics Assessment: as above
--- NOTE | 2024-04-17 12:19 | MHC.CM.PN ---
pt being transported by [facility] at [facility]
--- NOTE | 2024-04-17 12:20 | MHC.CM.PN ---
sister marco notified of dc left message [phone]
[2024-04-17 12:49] VITALS: BP 104/58; PULSE 70; RESP 18; TEMP 36.8; O2SAT 97
--- NOTE | 2024-04-17 14:12 | P.CDIM_ITS ---
PROVIDER RESPONSE TEXT: To clarify, the appropriate diagnosis supported by the clinical indicators: Aspiration Pneumonia: secretions QUERY TEXT: PHYSICIAN'S DOCUMENTATION REQUEST Date of Query: 04/17/2024 07:31 AM EST Patient Name: Dagoberto Mayen Admit Date: 04/14/2024 Dear Kady Gómez MD, A review of the medical record indicates additional documentation may be needed. Please review below and update the documentation accordingly. Clinical Indicators: ED 04/13/24 - Patient was discharged 2 days ago with acute hypoxic respiratory failure and aspiration pneumonia. Failed outpatient therapy. Clinical impression: Aspiration pneumonia. H&P - Acute metabolic encephalopathy in the setting of pneumonia and influenza A infection. CT of chest showing new airspace disease in the right hilar region concerning pneumonitis/pneumonia. Clarity and consistency of a diagnosis written within the medical record and if agree, possible to pl ellis this diagnosis within the body of the written Plan? Aspiration Pneumonia Please indicate substance such as food or vomitus, oils, or other solids or liquids Staph Pneumonia Please indicate if MRSA or MSSA Strep Pneumonia Please indicate if strep B, strep pneumonia, or other type Gram negative Pneumonia Please indicate if Pseudomonas, Klebsiella, or other Viral Pneumonia Please indicate parainfluenza, RSV, adenovirus, influenza (indicate type), etc. Other (explain) Clinically unable to determine (explain) Thank you, Gissell Leon, CCS, CDIS Use of terms such as suspected, likely, concern for, or probable (associated with a specific diagnosi s that is being evaluated, monitored, or treated as if it exists) are acceptable and can be coded in the inpatient se tting, when documented at the time of discharge. Please use your independent medical judgment in providing your response. THIS QUERY IS PART OF THE PERMANENT MEDICAL RECORD
--- NOTE | 2024-04-17 14:12 | P.CDIM_ITS ---
PROVIDER RESPONSE TEXT: To clarify, the appropriate diagnosis supported by the clinical indicators: Deep Tissue Injury coccyx: confirmed QUERY TEXT: PHYSICIAN'S DOCUMENTATION REQUEST Date of Query: 04/17/2024 07:28 AM EST Patient Name: Dagoberto Mayen Admit Date: 04/14/2024 Dear Kady Gómez MD, A review of the medical record indicates additional documentation may be needed. Please review below and update the documentation accordingly. Clinical Indicators: Wound care assessment notes dated 04/16/24 - Deep Tissue Injury coccyx. Dry & Intact Foam dressing. Based on the above, could you please provide further information regarding the ulcer/wound/injury: Deep Tissue Injury coccyx possible, probable, suspected etc. Other specified Other (explain) Clinically unable to determine (explain) Thank you, Gissell Leon, CCS, CDIS Use of terms such as suspected, likely, concern for, or probable (associated with a specific diagnosi s that is being evaluated, monitored, or treated as if it exists) are acceptable and can be coded in the inpatient se tting, when documented at the time of discharge. Please use your independent medical judgment in providing your response. THIS QUERY IS PART OF THE PERMANENT MEDICAL RECORD
--- NOTE | 2024-04-17 14:12 | P.CDIM_ITS ---
PROVIDER RESPONSE TEXT: To clarify, the appropriate diagnosis supported by the clinical indicators: Pressure Injury bilateral heels Unstageable QUERY TEXT: PHYSICIAN'S DOCUMENTATION REQUEST Date of Query: 04/17/2024 07:26 AM EST Patient Name: Dagoberto Mayen Admit Date: 04/14/2024 Dear Kady Gómez MD, A review of the medical record indicates additional documentation may be needed. Please review below and update the documentation accordingly. Clinical Indicators: Wound care assessment notes 04/16 - Pressure Injury bilateral heels, Unstageable. Dry & Intact Foam dressing. Based on the above, could you please provide further information regarding the ulcer/wound/injury: Pressure Injury bilateral heels Unstageable Other specifics Other (explain) Clinically unable to determine (explain) Thank you, Gissell Leon, CCS, CDIS Use of terms such as suspected, likely, concern for, or probable (associated with a specific diagnosi s that is being evaluated, monitored, or treated as if it exists) are acceptable and can be coded in the inpatient se tting, when documented at the time of discharge. Please use your independent medical judgment in providing your response. THIS QUERY IS PART OF THE PERMANENT MEDICAL RECORD
== END 2024-04-17 14:08 | disposition other institution (70) | DRG 865 ==
LOC: HO.ED 21:45 → HO.EDOVER 23:55 → HO.S3 04-14 17:28
PROVIDERS: Physician Assistant; Student in an Organized Health Care Education/Training Program; Admitting Provider Internal Medicine; Emergency Provider Internal Medicine; PCP Nurse Practitioner Family; Visit Provider Student in an Organized Health Care Education/Training Program
DX: J11.81 Influenza due to unidentified influenza virus with encephalopathy (principal); J69.0 Pneumonitis due to inhalation of food and vomit; E03.9 Hypothyroidism, unspecified; K21.9 Gastro-esophageal reflux disease without esophagitis; Z66 Do not resuscitate; F39 Unspecified mood [affective] disorder; L89.620 Pressure ulcer of left heel, unstageable; L89.156 Pressure-induced deep tissue damage of sacral region; L89.610 Pressure ulcer of right heel, unstageable; L27.0 Generalized skin eruption due to drugs and medicaments taken internally; T36.8X5A Adverse effect of other systemic antibiotics, initial encounter; Z79.890 Hormone replacement therapy; Z79.899 Other long term (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
CPT/HCPCS: 0241U; 36415; 70450; 71250; 80048; 80053; 81001; 83605; 83690; 83880; 85025; 85027; 87040; 93005; 99285; J0295; J1200; J1650; J2543; J3371; J7120

== ENCOUNTER → 2024-04-13 19:05 | Outpatient (BNV) | payer MEDICARE, MEDICAID, SELFPAY | PROVIDERS: Visit Provider Radiology Neuroradiology | DX: J18.9 Pneumonia, unspecified organism (principal); R41.82 Altered mental status, unspecified | CPT/HCPCS: 70450; 71250 ==

== ENCOUNTER → 2024-04-13 19:06 | Outpatient (BNV) | payer MEDICARE, MEDICAID, SELFPAY | PROVIDERS: Admitting Provider Internal Medicine; Emergency Provider Internal Medicine; PCP Nurse Practitioner Family; Visit Provider Internal Medicine | DX: J18.9 Pneumonia, unspecified organism (principal); R41.82 Altered mental status, unspecified | CPT/HCPCS: 93010 ==

== ENCOUNTER → 2024-04-13 23:50 | Outpatient (BNV) | payer MEDICARE, MEDICAID, SELFPAY | PROVIDERS: Admitting Provider Internal Medicine; Emergency Provider Internal Medicine; PCP Nurse Practitioner Family; Visit Provider Student in an Organized Health Care Education/Training Program | DX: J69.0 Pneumonitis due to inhalation of food and vomit (principal); J10.1 Influenza due to other identified influenza virus with other respiratory manifestations; J96.01 Acute respiratory failure with hypoxia | CPT/HCPCS: 99232; 99239 ==

== ENCOUNTER 2024-06-07 11:11 | Outpatient (AMB) | payer MEDICARE, MEDICAID, SELFPAY ==
--- NOTE | 2024-06-07 11:20 | A.OFFVIS_ITS ---
Vital Signs 06/07/24 11:28 Height 5 ft 5 in Weight 123 lb 14.397 oz BMI 20.6 BP 105/72 Blood Pressure Location Lt brachial Position Sitting Pulse 88 Pulse Source Pulse Oximeter Intake Visit Reasons: 6 mnth follow up Intake Note: Patient in office today in follow up of dysphagia. CC: He c/o trouble swallowing. Denies other GI concerns today. Renal Medicine Physician Required: No Accompanied by: Employee Allergies clindamycin Allergy (Unknown, Verified 06/07/24 11:30) Unknown Sulfa (Sulfonamide Antibiotics) [SULFA(SULFONAMIDE ANTIBIOTICS)] Allergy (Unkn own, Verified 06/07/24 11:30) UNKNOWN sulfamethoxazole [From Bactrim] Allergy (Unknown, Verified 06/07/24 11:30) Unknown trimethoprim [From Bactrim] Allergy (Unknown, Verified 06/07/24 11:30) Unknown vancomycin Adverse Reaction (Verified 06/07/24 11:30) Rash HPI HPI 6 mnth follow up: Details: Assessment & Plan (1) GERD (gastroesophageal reflux disease): Code(s): K21.9 - Gastro-esophageal reflux disease without esophagitis Category: Medical Qualifiers: Esophagitis presence: without esophagitis Qualified Code(s): K21.9 - Gastro-esophageal reflux disease without esophagitis (2) Constipation: Code(s): K59.00 - Constipation, unspecified Category: Medical Qualifiers: Constipation type: chronic idiopathic constipation Qualified Code(s): K59.04 - Chronic idiopathic constipation Plan He is here today with a staff member from his custodial who is supportive. He also continues on the Linzess with senna and MiraLax as needed for constipation and omeprazole with good control of his GERD. Dagoberto seems a little off today and we wonder if there may be something else going on with his health. They will be taking him to an urgent care after this as he seems more withdrawn than usual. ROV 6 mos TODAY'S VISIT Is here today with a staff member who is new to his case and can not contribute much to the history. He also continues on the Linzess with senna and MiraLax as needed for constipation and omeprazole with good control of his GERD. Fortunately he has been stable over a couple of years so I do not anticipate any changes. Dagoberto can not self report very well due to a psychiatric and memory issues. He will be due for a repeat screening colonoscopy in 2025 related to tubular adenomas. Return office visit in 6 months [facility] Medical History (Updated 06/07/24 @ 12:39 by LOI August) Scrotal irritation Underweight Nausea Bilateral impacted cerumen UTI due to extended-spectrum beta lactamase (ESBL) producing Escherichia coli Left humeral fracture Influenza A Aspiration pneumonia Influenza A Aspiration pneumonitis Community acquired pneumonia Annual wellness visit Dysphagia Rash Balanitis UTI (urinary tract infection) Acute UTI Aspiration into airway Closed fracture of left proximal humerus Bladder wall thickening Acute bronchitis COVID-19 virus infection Aspiration pneumonia Esophageal diverticulum 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 Paraparesis Metabolic encephalopathy COVID-19 Adult failure to thrive MVP (mitral valve prolapse) Mentally challenged Anxiety GERD (gastroesophageal reflux disease) Impaired glucose tolerance Tracheomalacia Schizophrenia Tubular adenoma of colon COPD (chronic obstructive pulmonary disease) Pneumonia Anemia Hypothyroid Depression Asthma Oropharyngeal dysphagia Surgical History History of bronchoscopy History of colonoscopy S/P tracheoplasty History of esophagogastroduodenoscopy (EGD) Family History Family/Other Unknown family medical history Father Hypertension Mother Unknown family medical history Brother No problems noted. Sister No problems noted. Social History Household Members: Unknown / Unable to assess Household Members Other:: Resides in [place] Housing: Other Housing Other:: snf. 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 Patient Tobacco Use Status: Never used Tobacco Tobacco use type: Cigarette e-Cigarette/Vaping Use: Never Used Second Hand Smoke Exposure: No Advance Directives Date on File: 11/28/20 service: No Current occupational status: disabled Cognitive needs: Yes Hearing needs: No Vision needs: No Review of Systems Const Denies fatigue, Denies fever(s), Denies night sweats, Denies poor appetite and Denies weight loss ENT Reports Normal hearing present, Denies dental pain, Denies dysphagia, Denies hearing loss, Denies mouth pain, Denies odynophagia, Denies throat swelling, Denies tongue swelling and Reports other (Dentition adequate) Card Reports no additional complaints Resp Reports no additional complaints GI Details: Denies abdominal pain, Denies melena, Denies bloating, Denies hematochezia, Reports constipation, Denies GI cramping, Denies dysphagia, Denies excessive flatus, Denies early satiety, Reports heartburn, Denies diarrhea, Denies nausea, Denies odynophagia, Denies vomiting and Denies hematemesis Reports urinary incontinence Musc Reports abnormal gait and Reports stiffness Skin/Breast Denies pruritus, Denies lesions, Denies rash and Denies jaundice Neuro Reports Normal hearing present, Denies Abnormal speech present and Reports abnormal gait Psych Reports other Endo Denies fatigue Aller/Immun Denies throat swelling and Denies tongue swelling Physical Exam Vital Signs: Last Vital Signs Pulse 88 06/07/24 11:28 BP 105/72 06/07/24 11:28 BMI result Body Mass Index 20.6 Const General: cooperative, no acute distress, well developed and well groomed Nutritional Appearance: average body habitus and well nourished Orientation/consciousness: oriented to person, oriented to place and oriented to time Limitations: behavioral limitations, No language barrier and other limitations HEENT Head: Yes normocephalic and Yes atraumatic Eyes General: appearance normal, both eyes and all related structures Pupils: Equal, round and reactive pupils present Neck Neck: Yes normal visual inspection and Yes no lymphadenopathy Thyroid: Thyroid normal Resp Effort & Inspection: normal respiratory effort and able to speak in complete sentences Auscultation: clear to auscultation bilaterally Cardio Rate: regular rate Rhythm: regular rhythm Heart sounds: Normal, physiologic split S2 sound present Peripheral pulses: radial pulses present and posterior tibial pulses present GI Inspection: No distended and No Abdominal panniculus present Palpation (GI): Soft to palpation, nontender, no guarding, not rigid and No hepatosplenomegaly present Percussion: Yes normal to percussion Auscultation: normal bowel sounds Rectal Exam - Male: Yes deferred Skin General skin exam: no rashes or lesions noted, turgor normal, skin not dry, no jaundice, No spider nevi and no striae Rashes: no rashes Nails: normal Neuro General: oriented to person, oriented to place and oriented to time Cranial nerves: Yes Equal, round and reactive pupils present and Yes Normal hearing present Speech: No Abnormal speech present Extrem General: Yes normal to inspection, No clubbing, No cyanosis and No edema Psych Appearance: grossly normal and well kempt Mental Status: other Speech and movement: Slowed speech present (Psych) Affect: Blunted affect present Attitude: cooperative Thought process: not confabulating and Impoverished thought process present Thought content: other Insight: Poor insight present (Psych) Judgement: Poor judgement present (Psych) Assessment & Plan Assessment & Plan (1) GERD (gastroesophageal reflux disease): Code(s): K21.9 - Gastro-esophageal reflux disease without esophagitis Category: Medical Qualifiers: Esophagitis presence: without esophagitis Qualified Code(s): K21.9 - Gastro-esophageal reflux disease without esophagitis (2) Tubular adenoma of colon: Comment: 10 mm polyp and 12 mm sessile polyp 04/2020 repeat scope 10/2020=TA repeat 5 years Code(s): D12.6 - Benign neoplasm of colon, unspecified Category: Medical (3) Constipation: Code(s): K59.00 - Constipation, unspecified Category: Medical Qualifiers: Constipation type: chronic idiopathic constipation Qualified Code(s): K59.04 - Chronic idiopathic constipation Plan Is here today with a staff member who is new to his case and can not contribute much to the history. He also continues on the Linzess with senna and MiraLax as needed for constipation and omeprazole with good control of his GERD. Fortunately he has been stable over a couple of years so I do not anticipate any changes. Dagoberto can not self report very well due to a psychiatric and memory issues. He will be due for a repeat screening colonoscopy in 2025 related to tubular adenomas. Return office visit in 6 months Medications: New polyethylene glycol 3350 17 grams PO DAILY PRN 100 ea 6RF Constipation sennosides (senna) 17.2 mg (2 x 8.6 mg) PO BEDTIME 60 tabs 6RF Changed From omeprazole 40 mg PO BID@0630,1630 To omeprazole 40 mg (2 x 20 mg) PO BID@0630,1630 360 caps 1RF 90 days Refilled linaclotide (Linzess) 290 mcg PO DAILY 30 caps 6RF K59.00 - Constipation, unspecified Coding Level of Care Code Est Pt Level 3 (16392) Diagnoses Gastroesophageal reflux disease without esophagitis K21.9 Esophagitis presence: without esophagitis Tubular adenoma of colon D12.6 Chronic idiopathic constipation K59.04 Constipation type: chronic idiopathic constipation
[2024-06-07 11:28] VITALS: BP 105/72; PULSE 88; BMI 20.6
--- OUTSIDE RECORDS SUMMARY | 2024-06-07 13:29 | XMS_ITS | Encounter Summary ---
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 CBC AND DIFFERENTIAL Routine 03/21/2024 7:09 AM EST 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 documented in this encounter Results * (ABNORMAL) CBC auto differential (03/21/2024 7:09 AM EST) WBC 4.8 4.8 - 10.8 K/[facility] LAB HEMETOLOGY METHOD 03/21/2024 8:47 AM EST [facility] LAB RBC 4.20(L) 4.50 - 5.50 M/[facility] LAB HEMETOLOGY METHOD 03/21/2024 8:47 AM [facility] LAB Hemoglobin 12.8(L) 13.5 - 17.5 g/dL LAB HEMETOLOGY METHOD 03/21/2024 8:47 AM [facility] LAB Hematocrit 39.4(L) 42.0 - 54.0 % LAB HEMETOLOGY METHOD 03/21/2024 8:47 AM [facility] LAB MCV 94.9 79.0 - 98.0 FL LAB HEMETOLOGY METHOD 03/21/2024 8:47 AM [facility] LAB MCH 30.8 27.0 - 32.0 pcg LAB HEMETOLOGY METHOD 03/21/2024 8:47 AM [facility] LAB MCHC 32.5 32.0 - 37.0 g/dL LAB HEMETOLOGY METHOD 03/21/2024 8:47 AM [facility] LAB RDW 13.6 11.0 - 15.0 % LAB HEMETOLOGY METHOD 03/21/2024 8:47 AM [facility] LAB Platelets 237 130 - 400 K/mcL LAB HEMETOLOGY METHOD 03/21/2024 8:47 AM [facility] LAB MPV 11.0 7.0 - 11.0 FL LAB HEMETOLOGY METHOD 03/21/2024 8:47 AM [facility] LAB NRBC 0.0 <1.0 % LAB HEMETOLOGY METHOD 03/21/2024 8:47 AM [facility] LAB NRBC Absolute 0.00 <0.10 K/mcL LAB HEMETOLOGY METHOD 03/21/2024 8:47 AM [facility] LAB Neutrophils Relative 55.6 % LAB HEMETOLOGY METHOD 03/21/2024 8:47 AM [facility] LAB Lymphocytes Relative 31.2 % LAB HEMETOLOGY METHOD 03/21/2024 8:47 AM [facility] LAB Monocytes Relative 8.9 % LAB HEMETOLOGY METHOD 03/21/2024 8:47 AM [facility] LAB Eosinophils Relative 3.1 % LAB HEMETOLOGY METHOD 03/21/2024 8:47 AM [facility] LAB Basophils Relative 1.0 % LAB HEMETOLOGY METHOD 03/21/2024 8:47 AM [facility] LAB Immature Granulocytes Relative 0.2 % LAB HEMETOLOGY METHOD 03/21/2024 8:47 AM EST [facility] LAB Neutrophils Absolute 2.69 1.50 - 7.00 K/mcL LAB HEMETOLOGY METHOD 03/21/2024 8:47 AM EST [facility] LAB Lymphocytes Absolute 1.51 1.00 - 5.00 K/mcL LAB HEMETOLOGY METHOD 03/21/2024 8:47 AM [facility] LAB Monocytes Absolute 0.43 0.20 - 1.00 K/mcL LAB HEMETOLOGY METHOD 03/21/2024 8:47 AM EST [facility] LAB Eosinophils Absolute 0.15 0.00 - 0.50 K/mcL LAB HEMETOLOGY METHOD 03/21/2024 8:47 AM EST [facility] LAB Basophils Absolute 0.05 0.00 - 0.20 K/mcL LAB HEMETOLOGY METHOD 03/21/2024 8:47 AM [facility] LAB Immature Granulocytes Absolute 0.01 0.00 - 0.03 K/mcL LAB HEMETOLOGY METHOD 03/21/2024 8:47 AM EST [facility] LAB Blood Venous blood specimen / Unknown Venipuncture / Unknown 03/21/2024 7:09 AM EST 03/21/2024 8:03 AM EST us Osmar Bowen MD LAB BLOOD ORDERABLES Final Resul t [facility] LAB [address] [place] [address], documented in this encounter Visit Diagnoses Diagnosis 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
--- OUTSIDE RECORDS SUMMARY | 2024-06-07 13:30 | XMS_ITS | Encounter Summary ---
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
--- OUTSIDE RECORDS SUMMARY | 2024-06-07 13:30 | XMS_ITS | Encounter Summary ---
Author Organization [facility] Address [address] [place] [address] Care Team Providers Care Industrial Staff Nurse Name Role Phone Art Coughlin MD Primary Care Provider [phone] Encounter Details Date Type Department Care Team (Late st Contact Info) Description 01/25/[address] [facility] - Main Lab [address] [facility] [place] [address] Social History Tobacco Use Types [...] on filedocumented in this encounter Care Teams Industrial Staff Nurse Relationship Specialty Start Date End Date Art Coughlin MD [address] [place] [address] PCP - General 06/30/22 documented as of this encounter
--- OUTSIDE RECORDS SUMMARY | 2024-06-07 13:30 | XMS_ITS | Encounter Summary ---
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 Social History Tobacco Use [...] DIFFERENTIAL Routine 02/24/2024 3:45 PM EST 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3(L) 42.0 - 54.0 % LAB HEMETOLOGY METHOD 02/24/2024 4:38 PM [facility] LAB MCV 92.8 79.0 - 98.0 FL LAB HEMETOLOGY METHOD 02/24/2024 4:38 PM [facility] LAB MCH 30.4 27.0 - 32.0 pcg LAB HEMETOLOGY METHOD 02/24/2024 4:38 PM [facility] LAB MCHC 32.8 32.0 - 37.0 g/dL LAB HEMETOLOGY METHOD 02/24/2024 4:38 PM [facility] LAB RDW 13.2 11.0 - 15.0 % LAB HEMETOLOGY METHOD 02/24/2024 4:38 PM [facility] LAB Platelets 294 130 - 400 K/mcL LAB HEMETOLOGY METHOD 02/24/2024 4:38 PM [facility] LAB MPV 10.5 7.0 - 11.0 FL LAB HEMETOLOGY METHOD 02/24/2024 4:38 PM [facility] LAB NRBC 0.0 <1.0 % LAB HEMETOLOGY METHOD 02/24/2024 4:38 PM [facility] LAB NRBC Absolute 0.00 <0.10 K/mcL LAB HEMETOLOGY METHOD 02/24/2024 4:38 PM [facility] LAB Neutrophils Relative 53.6 % LAB HEMETOLOGY METHOD 02/24/2024 4:38 PM [facility] LAB Lymphocytes Relative 30.9 % LAB HEMETOLOGY METHOD 02/24/2024 4:38 PM [facility] LAB Monocytes Relative 10.4 % LAB HEMETOLOGY METHOD 02/24/2024 4:38 PM EST [facility] LAB Eosinophils Relative 3.1 % LAB HEMETOLOGY METHOD 02/24/2024 4:38 PM [facility] LAB Basophils Relative 1.1 % LAB HEMETOLOGY METHOD 02/24/2024 4:38 PM [facility] LAB Immature Granulocytes Relative 0.9 % LAB HEMETOLOGY METHOD 02/24/2024 4:38 PM EST [facility] LAB Neutrophils Absolute 2.90 1.50 - 7.00 K/mcL LAB HEMETOLOGY METHOD 02/24/2024 4:38 PM [facility] LAB Lymphocytes Absolute 1.67 1.00 - 5.00 K/mcL LAB HEMETOLOGY METHOD 02/24/2024 4:38 PM [facility] LAB Monocytes Absolute 0.56 0.20 - 1.00 K/mcL LAB HEMETOLOGY METHOD 02/24/2024 4:38 PM EST [facility] LAB Eosinophils Absolute 0.17 0.00 - 0.50 K/mcL LAB HEMETOLOGY METHOD 02/24/2024 4:38 PM EST [facility] LAB Basophils Absolute 0.06 0.00 - 0.20 K/mcL LAB HEMETOLOGY METHOD 02/24/2024 4:38 PM [facility] LAB Immature Granulocytes Absolute 0.05(H) 0.00 - 0.03 K/mcL LAB HEMETOLOGY METHOD 02/24/2024 4:38 PM [facility] LAB Blood Venous blood specimen / Unknown Venipuncture / Unknown 02/24/2024 3:45 PM EST 02/24/2024 4:31 PM EST us Osmar Bowen MD LAB BLOOD ORDERABLES Final Resul t [facility] LAB [address] [place] [address], documented in this encounter Visit Diagnoses Diagnosis Other mcc (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 documented in this encounter Care Teams Clearing House Clerk Relationship Specialty Start Date End Date Art Coughlin MD [address] [place] [address] PCP - General 06/30/22 documented as of this encounter
--- OUTSIDE RECORDS SUMMARY | 2024-06-07 13:30 | XMS_ITS | Patient Health Record ---
Author Organization [facility] Address [address] [place] [address] Care Team Providers Care Surface Grinder Name Role Phone Briana Reeves MD Primary Care Provider Anthony Patrick Unavailable [phone] ELIOT JOYNER Unavailable Unavailable Allergies Allergen (clinical drug ingredient) Drug/Non Drug Allergy documented on EMR Reaction Allergy Type Onset Date Status sulfamethoxazole / trimethoprim Bactrim Unknown Drug Allergy Active Reason For Referral No Information Medications Medication SIG (Take, Route, Frequency, Duration) Notes [...] stomach Orally qam Active Flaxseed Oil Active Immunizations Vaccine Route Administration Date Status Comme nts Influenza Unknown 10/24/2019 Administered Problems Problem Type SNOMED Code ICD Code Onset Dates Problem Status W/U Status Risk Notes Problem Screening for malignant neoplasm of colon (192674340) Encounter for screening for malignant neoplasm of colon (Z12.11) Active confirmed Problem History of adenomatous polyp of colon (480020636) History of adenomatous polyp of colon (Z86.010) Active confirmed Problem Constipation (50143107) Constipation (K59.00) Active confirmed Problem Preprocedural examination (909746234915824) Preprocedural examination (Z01.818) Active confirmed Problem Irregular bowel habits (455315109) Irregular bowel habits (R19.8) Active confirmed Plan Of Treatment Pending Test Test Name Order Date T4 [...] OF [place] [address] [place] [address] [id number] DELMAR RANGEL Self - patient is the insured MEDICAID OF [facility] [address] [place] [address] [id number] DELMAR RANGEL Self - patient is the insured Medical (General) History Medical History History ICD Code Screening colonoscopy 2006-several tubular adenomas removed; reported colonoscopy elsewhere in 2012 Schizophrenia Asthma Mitral valve disease Jeannie esophagitis-EGD in 2004 Denies ME,DM,CVA,renal disease Surgical History Surgery Date(Month/Year)
--- OUTSIDE RECORDS SUMMARY | 2024-06-07 13:30 | XMS_ITS | Clinical Summary ---
Author Organization [address] [facility] Address [address] [place] [address] Phone Care Team Providers Care Station Baggage Porter Name Role Phone Art Coughlin MD Primary Care Provider [phone] Encounters Date Type Department Care Team Description 03/21/2024 Lab Requisition [facility] - Main Lab 299 [facility] [place] [address] Osmar Bowen MD Other retirement (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 from Last 3 Months Medical History Medical History Date Comments Adult failure to thrive DX:Adult failure to thrive Anemia DX:Anemia Anxiety disorder DX:Anxiety diso rder Ataxic gait DX:Ataxic gait Chronic obstructive pulmonar y disease ([facility] V24, [facility] V28) DX:Chronic obstructive pulm onary disease ([facility]) Depression DX:Depression GERD (gastroesophageal reflux disease) DX:GERD (gastroesophageal reflux disease) Hypothyroidism DX:Hypothyroidis m Impaired glucose tolerance DX:Im paired glucose tolerance Mentally challenged DX:Mentally challenged Metabolic encephalopathy DX:[place] bolic encephalopathy Mitral valve prolapse DX:Mitral valve prolapse Oropharyngeal dysphagia DX:Oroph aryngeal dysphagia Paraparesis ([facility]24, [facility] V28) DX:Paraparesis ([facility]) Pneumonia DX:Pneumonia Schizophrenia ([facility] V24, [facility] V28) DX:Schizophrenia ([facility]) Tracheomalacia DX:Tracheomalaci a Social History Tobacco Use [...] Vaccines (1 of 2) 2004 RSV Immunization Adult Patie nts (1 - Risk 60-74 years 1-dose series) 2014 Abdominal Aortic Aneurysm (A AA) Screen 01/20/2022 Cholesterol Screening (Lipid Panel) 01/20/2022 Colorectal Cancer Screening: Colonoscopy 01/20/2022 Depression Screening 01/20/2022 Falls Risk Assessment 01/20/2022 Hepatitis C Screening 01/20/2022 Medicare Annual Wellness Visit 01/20/2022 Social Influencers of Health Screening 01/20/2022 COVID-19 Vaccine ( - 2023-2 5 season) 2023 Influenza Vaccine (Season Ended) 2024 HIB Vaccines Aged Out No longer eligi [...] age to complete this topic Meningococcal B Vaccine Aged Out No l onger eligible based on patient's age to complete this topic RSV Immunization Patients Un sparkle 20 months Aged Out No longer eligible b ased on patient's age to complete this topic Varicella Vaccines Aged Out No longer eligible based on patient's age to complete this topic Procedures Procedure Name Priority Date/Time Associated Diagnosis Comments CBC WITH AUTO DIFFERENTIAL Routine 03/21/2024 7:09 AM EST 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 CBC AND DIFFERENTIAL Routine 03/21/2024 7:09 AM EST 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 from Last 3 Months Results * (ABNORMAL) CBC auto differential (03/21/2024 7:09 AM EST) WBC 4.8 4.8 - 10.8 K/[facility] LAB HEMETOLOGY METHOD 03/21/2024 8:47 AM [facility] LAB RBC 4.20(L) 4.50 - 5.50 M/mcL LAB HEMETOLOGY METHOD 03/21/2024 8:47 AM [facility] LAB Hemoglobin 12.8(L) 13.5 - 17.5 g/dL LAB HEMETOLOGY METHOD 03/21/2024 8:47 AM [facility] LAB Hematocrit 39.4(L) 42.0 - 54.0 % LAB HEMETOLOGY METHOD 03/21/2024 8:47 AM [facility] LAB MCV 94.9 79.0 - 98.0 FL LAB HEMETOLOGY METHOD 03/21/2024 8:47 AM [facility] LAB MCH 30.8 27.0 - 32.0 pcg LAB HEMETOLOGY METHOD 03/21/2024 8:47 AM [facility] LAB MCHC 32.5 32.0 - 37.0 g/dL LAB HEMETOLOGY METHOD 03/21/2024 8:47 AM [facility] LAB RDW 13.6 11.0 - 15.0 % LAB HEMETOLOGY METHOD 03/21/2024 8:47 AM [facility] LAB Platelets 237 130 - 400 K/mcL LAB HEMETOLOGY METHOD 03/21/2024 8:47 AM [facility] LAB MPV 11.0 7.0 - 11.0 FL LAB HEMETOLOGY METHOD 03/21/2024 8:47 AM [facility] LAB NRBC 0.0 <1.0 % LAB HEMETOLOGY METHOD 03/21/2024 8:47 AM [facility] LAB NRBC Absolute 0.00 <0.10 K/mcL LAB HEMETOLOGY METHOD 03/21/2024 8:47 AM [facility] LAB Neutrophils Relative 55.6 % LAB HEMETOLOGY METHOD 03/21/2024 8:47 AM [facility] LAB Lymphocytes Relative 31.2 % LAB HEMETOLOGY METHOD 03/21/2024 8:47 AM [facility] LAB Monocytes Relative 8.9 % LAB HEMETOLOGY METHOD 03/21/2024 8:47 AM [facility] LAB Eosinophils Relative 3.1 % LAB HEMETOLOGY METHOD 03/21/2024 8:47 AM [facility] LAB Basophils Relative 1.0 % LAB HEMETOLOGY METHOD 03/21/2024 8:47 AM [facility] LAB Immature Granulocytes Relative 0.2 % LAB HEMETOLOGY METHOD 03/21/2024 8:47 AM [facility] LAB Neutrophils Absolute 2.69 1.50 - 7.00 K/mcL LAB HEMETOLOGY METHOD 03/21/2024 8:47 AM [facility] LAB Lymphocytes Absolute 1.51 1.00 - 5.00 K/mcL LAB HEMETOLOGY METHOD 03/21/2024 8:47 AM [facility] LAB Monocytes Absolute 0.43 0.20 - 1.00 K/mcL LAB HEMETOLOGY METHOD 03/21/2024 8:47 AM [facility] LAB Eosinophils Absolute 0.15 0.00 - 0.50 K/mcL LAB HEMETOLOGY METHOD 03/21/2024 8:47 AM [facility] LAB Basophils Absolute 0.05 0.00 - 0.20 K/mcL LAB HEMETOLOGY METHOD 03/21/2024 8:47 AM [facility] LAB Immature Granulocytes Absolute 0.01 0.00 - 0.03 K/mcL LAB HEMETOLOGY METHOD 03/21/2024 8:47 AM [facility] LAB Blood Venous blood specimen / Unknown Venipuncture / Unknown 03/21/2024 7:09 AM EST 03/21/2024 8:03 AM EST Osmar Bowen MD LAB BLOOD ORDERABLES Final Resul t [facility] H[facility] LAB [address] [place] [address], from Last 3 Months Insurance MEDICAID - [place] MEDICARE Care Teams Station Baggage Porter Relationship Specialty Start Date End Date Art Coughlin MD [address] [place] [address] PCP - General 06/30/22
== END 2024-06-07 11:57 | disposition home or self-care (01) ==
PROVIDERS: PCP Nurse Practitioner Family; Visit Provider Nurse Practitioner
DX: K21.9 Gastro-esophageal reflux disease without esophagitis (principal); D12.6 Benign neoplasm of colon, unspecified; K59.04 Chronic idiopathic constipation
CPT/HCPCS: 99213

== ENCOUNTER → 2024-06-07 11:11 | Outpatient (BNVA) | payer MEDICARE, MEDICAID, SELFPAY | PROVIDERS: PCP Nurse Practitioner Family; Visit Provider Nurse Practitioner | DX: K21.9 Gastro-esophageal reflux disease without esophagitis (principal); K59.04 Chronic idiopathic constipation; D12.6 Benign neoplasm of colon, unspecified | CPT/HCPCS: 99212 ==